=== PATIENT | male | born 1945 | race Caucasian/White ===

== ENCOUNTER → 2016-09-01 | Outpatient (CLI) | payer BC ==
[~2016-09-01] MED LIST: ASPI81TA28 PO; CHOL100010 PO; ERYTTAB PO; FRS/40 PO; GLIP5TAB3 PO; LISI-461 PO; MCRK/20 PO; METO2.5T PO; METO50TA7 PO; MULT-506 PO; NITR0.4D6 UT; OMEG10007 PO; SYN125 PO
[2016-09-01 11:57] LABS: BASO % 0.1 %; BASO ABS # 0.01 K/uL (0-0.2); COMPLETE YES; HEMATOCRIT 44.2 % (42-52); IG% 0.1 %; LYMPH % 29.5 %; LYMPH ABS # 2.07 K/uL (1.2-3.4); MEAN CELL VOLUME 91.7 fL (80-100); MEAN CORPUSCULAR HEMOGLOBIN 32.2 pg (25-34); MEAN CORPUSCULAR HGB CONC 35.1 g/dl (32-36); MONO % 9.5 %; NEUT % 59.8 %; PLATELET COUNT 196 K/uL (130-400); RED BLOOD COUNT 4.82 M/uL (4.7-6.1); WHITE BLOOD COUNT 7.02 K/uL (4.8-10.8)
[2016-09-01 12:03] LABS: INR 1.1 (0.9-1.1); PARTIAL THROMBOPLASTIN RATIO 1.1; PROTHROMBIN TIME (PATIENT) 11.3 SECONDS (9.0-12.0)
[2016-09-01 12:30] LABS: ESTIMATED AVERAGE GLUCOSE 117 mg/dl; HA1C FLAG Normal (Normal)
[2016-09-01 12:31] LABS: ALT/SGPT 25 U/L (12-78); AST/SGOT 14 U/L (15-37); BLOOD UREA NITROGEN 14 mg/dl (7-18); BUN/CREATININE RATIO 12.3 (10-20); CALCIUM 8.5 mg/dl (8.5-10.1); CARBON DIOXIDE 31 mmol/L (21-32); CHLORIDE 101 mmol/L (98-107); GLUCOSE 110 mg/dl (70-99); POTASSIUM 3.7 mmol/L (3.5-5.1); SODIUM 139 mmol/L (136-145)
[2016-09-01 12:36] LABS: ALKALINE PHOSPHATASE 78 U/L (45-117)
== END | disposition home or self-care (01) ==
LOC: C.LAB1850 10:59
PROVIDERS: ATTEND Internal Medicine Cardiovascular Disease
DX: Z01.818 Encounter for other preprocedural examination (principal); I25.10 Atherosclerotic heart disease of native coronary artery without angina pectoris; E11.9 Type 2 diabetes mellitus without complications; Z12.5 Encounter for screening for malignant neoplasm of prostate

== ENCOUNTER 2016-09-16 12:37 | Day surgery (SDC) | payer BC ==
[~2016-09-16] VITALS: Ht 179.1 cm; Wt 97.5 kg
[~2016-09-16 12:37] MED LIST changes: -ERYTTAB PO; +LACTATED RINGER'S 1000ML IV SCH; -METO2.5T PO; +VANCOMYCIN 1GM/270ML NSS 270 ML IV SCH
[2016-09-16] MEDS ORDERED: METO2.5T PO (12:57)
[2016-09-16 12:58] VITALS: BP 130/70; PULSE 94; TEMP 36.6; O2SAT 96; Ht 179.1 cm; Wt 97.5 kg
[2016-09-16] MEDS ORDERED: BACITRACIN 50000 UNIT VIAL ONE (14:14)
[2016-09-16] MEDS ORDERED: LIDOCAINE HCL 1% 20 ML VIAL ONE (14:14)
[2016-09-16] MEDS ORDERED: BACITRACIN OINT 0.9 GM PKT ONE (14:14)
--- NOTE | 2016-09-16 14:51 | History & Physical Bridge Note ---
H&P Re-Evaluation Bridge Note: I have examined the patient, reviewed the History & Physical and in the interval since the performance of the History & Physical I have noted the following changes of clinical significance: No changes noted. I reviewed the indications, procedure, risks and alternatives with him and his and he understands and agrees to proceed. Consent obtained.
--- NOTE | 2016-09-16 14:52 | Procedure Note ---
Pre-Mod Sedation Assessment General Date of Moderate Sedation: Sep 16, 2016. Vital Signs: Vital Signs Past 12 Hours Date Time Temp Pulse Resp B/P Pulse Ox O2 Delivery O2 Flow Rate FiO2 09/16/16 12:58 36.6 94 20 130/70 96 Room Air Review Cardiovascular: regular rate, rhythm Abdomen: normal bowel sounds Lungs: lungs clear Pre-Sedation Airway Assessment Oral Cavity: WNL Smoking Status: Former Smoker Procedure Planning Contraindications-for Mod Sed: None Yes Notes The planned sedation has been discussed with the patient and consent obtained. I have identified the patient, determined the appropriateness of sedation and have assessed the patient immediately prior to the procedure. All medicine(s) and interventions are by my order.
[2016-09-16] MEDS ORDERED: FENTANYL CITRATE INJ 50 MCG/1 ML 2 ML VIAL ONE ×2 (15:00→15:28)
[2016-09-16] MEDS ORDERED: MIDAZOLAM HCL 5 MG/ML 1 ML VIAL ONE ×2 (15:00→15:28)
--- NOTE | 2016-09-16 16:28 | Procedure Note ---
Post-Mod Sedation Assessment General Date of Moderate Sedation Sep 16, 2016. Vital Signs: Vital Signs Past 12 Hours Date Time Temp Pulse Resp B/P Pulse Ox O2 Delivery O2 Flow Rate FiO2 09/16/16 12:58 36.6 94 20 130/70 96 Room Air Review - Discharge Criteria Vital Signs Stable: Yes Alert/Oriented/Conversant: Yes Returned to Baseline Mental St: Yes Nausea Absent/Minimal: Yes Pain/Discomfort/Absent/Minimal: Yes Normal/Baseline Respirations: Yes Active Bleeding?: No Pt Received D/C Instructions: Yes
--- NOTE | 2016-09-16 16:32 | Cardiology Procedure Brief Nt ---
Preliminary Cardiology Note Procedure Date Sep 16, 2016. Pre-Procedure Diagnosis ICD NACHO Post-Procedure Diagnosis same Procedure(s) Performed Biventricular ICD replacement Pier Hand Dr. Barrow Tiltrotor Crew Chief(s) none Estimated Blood Loss 50 cc Preliminary Findings Excellent chronic lead measurements, successful device replacement Recommendations Monitor briefly and discharge Specimens Old ICD, return to patient after signing release form Anesthesia local with sedation Complication(s) None Disposition MTU
[2016-09-16 16:37] VITALS: BP 119/61; PULSE 61; TEMP 36.6; O2SAT 96
[2016-09-16] MEDS ORDERED: KETOROLAC TROMETHAMINE 10 MG TAB PO PRN (16:45)
[2016-09-16] MEDS ORDERED: ACETAMINOPHEN 325 MG TAB PO PRN (16:45)
[2016-09-16 17:00] VITALS: BP 113/67; PULSE 60; TEMP 36.5; O2SAT 96
[2016-09-16 17:30] VITALS: BP 111/62; PULSE 61; TEMP 36.7; O2SAT 96
[2016-09-16] MEDS ORDERED: ERYTTAB PO (17:38)
--- NOTE | 2016-09-16 17:42 | Discharge Instructions ---
Discharge Instructions Admission Reason for Admission: ICD battery depletion Discharge Discharge Diagnosis / Problem: ICD elective replacement time Discharge Goals Goal(s): Improve disease control Activity Recommendations Activity Limitations: resume your previous activity . Instructions / Follow-Up Instructions / Follow-Up ACTIVITY RECOMMENDATIONS: * Do not raise affected arm over head for 2 weeks. SPECIAL CARE INSTRUCTIONS: * If bleeding occurs, apply direct pressure to area for 5 minutes. * Call your doctor if you have severe pain, fever, drainage or bleeding at site. * Keep dressing on and dry. * Keep any scheduled doctor's appointment. * Implant Card - hand held device with website information given. SKIN IRRITATION: * You may experience some redness and/or swelling in the area where radiation was administered. If any skin irritation occurs, please contact your family physician. FOLLOW UP VISIT: Dr. Brarow 09/17/2016, 10:00 AM Current Hospital Diet Patient's current hospital diet: AHA Diet (Heart Healthy) Discharge Diet Recommended Diet: AHA Diet (Heart Healthy), Diabetes Type 2 Diet Procedures Procedures Performed: Biventricular ICD replacement Pending Studies Studies pending at discharge: no Laboratory Results Hemoglobin A1c Test 09/01/16 11:07 Range/Units Estimated Average Glucose 117 mg/dl Hemoglobin A1c 5.7 H 4.5-5.6 % Medical Emergencies . Who to Call and When: Medical Emergencies: If at any time you feel your situation is an emergency, please call 911 immediately. . Non-Emergent Contact Non-Emergency issues call your: Primary Care Provider . . "Provider Documentation" section prepared by Donald Barrow. VTE Core Measure Inpt VTE Proph given/why not?: Treatment not indicated
--- NOTE | 2016-10-16 07:47 | OPERATIVE REPORT ---
DATE OF OPERATION: 09/16/2016 PREOPERATIVE DIAGNOSIS: Implantable cardioverter defibrillator elective replacement indicator. POSTOPERATIVE DIAGNOSIS: Same. PROCEDURE: Biventricular ICD implantation. SURGEON: Donald Barrow MD ANESTHESIA: Local with sedation. HISTORY OF PRESENT ILLNESS: This is a 70-year-old male who has a history of ischemic cardiomyopathy and a biventricular ICD. His ICD was implanted on 09/02/2011. His device has reached NACHO with battery depletion. Therefore, he is brought to the laboratory for device replacement. DESCRIPTION OF PROCEDURE: After obtaining informed consent for the procedure, he was brought to the laboratory on 09/16/2016 being NPO. He was identified in the laboratory, prepped and draped in standard sterile manner for an ICD replacement. The prepectoral region was anesthetized with 1% lidocaine local anesthetic and a 6 cm incision was made through the old implant scar and carried down to the ICD generator. The generator was dissected free of tissue and explanted. The explanted ICD was confirmed to be a Medtronic Protecta XT model [id number], serial number [id number], implanted 09/02/2011. This device will be returned to [employer]. The atrial lead is a Medtronic model 5076, serial number [id number] implanted 09/02/2011. This lead was evaluated in bipolar configuration and a pulse width of 0.5 milliseconds. The pacing threshold was 1.0 volts with a current of 2.1 milliamps, 5-volt lead impedance was 463 ohms and P-waves were sensed at 1.9 millivolts. This is a good threshold and this lead can be used. The right ventricular lead is a Medtronic model 6947, serial number [id number], implanted 09/02/2011. This lead was evaluated in bipolar configuration and a pulse width of 0.5 milliseconds. The ventricular pacing threshold was 0.7 volts with a current of 1.0 milliamp, 5-volt lead impedance was 491 ohms, R-waves were sensed at 30 millivolts. This is a good threshold and this lead can be used. The left ventricular lead is a Medtronic model 4296, serial number [id number], implanted 09/02/2011. This lead was evaluated from LV tip to LV ring at a pulse width of 0.5 milliseconds. The pacing threshold was 0.7 volts with a current of 0.6 milliamps. The 5-volt lead impedance was 951 ohms and R-waves were sensed at 22.1 millivolts. Diaphragmatic pacing was not evaluated. These thresholds are good and this lead can be used. A new ICD (Medtronic Amplia MRI) was attached to the leads and found to be functioning normally. It was placed in the pocket with the leads coiled beneath it and the incision was closed with a running double subcutaneous closure of 3-0 Vicryl followed by running subcuticular skin closure of 4-0 Vicryl. Bacitracin ointment was placed on incision and a pressure dressing applied. The patient tolerated the procedure well, there were no complications, and estimated blood loss was 50 mL. The patient was transferred to the ambulatory unit for monitoring and subsequent discharge. Details of the explanted ICD and the chronic leads are noted above. The new ICD is a Medtronic Amplia MRI FORM BUILDER-D SureScan, model [id number], serial number [id number]. This is an MRI compatible device. JENNIFER
== END 2016-09-16 18:10 | disposition home or self-care (01) ==
LOC: C.ACU 12:37
PROVIDERS: ATTEND Internal Medicine Cardiovascular Disease
DX: Z45.02 Encounter for adjustment and management of automatic implantable cardiac defibrillator (principal); I25.5 Ischemic cardiomyopathy; I25.110 Atherosclerotic heart disease of native coronary artery with unstable angina pectoris; E11.9 Type 2 diabetes mellitus without complications; E04.9 Nontoxic goiter, unspecified; I25.2 Old myocardial infarction; E03.8 Other specified hypothyroidism

== ENCOUNTER → 2016-10-01 | Outpatient (CLI) | payer BC ==
[~2016-10-01] MED LIST changes: -LACTATED RINGER'S 1000ML IV SCH; +METO2.5T PO; -VANCOMYCIN 1GM/270ML NSS 270 ML IV SCH
--- NOTE | 2016-10-01 10:06 | DIAGNOSTIC IMAGING REPORT ---
THYROID ULTRASOUND HISTORY: Mass R22.1 Neck [id number] COMPARISON: None. FINDINGS: Right lobe: Maximum linear dimension 6.0 cm. Heterogeneous somewhat echogenic nodule measuring 3.3 cm x 4.7 cm. Left lobe: Maximum dimension 4.3 cm. No significant nodular pathology. Mild heterogeneity of architecture of the left thyroid lobe. Isthmus: No nodules. IMPRESSION: 1. Mildly heterogeneous thyroid bilaterally. 2. Dominant nodule mid to lower aspect right thyroid measuring 3.35 by potentially 4.7 cm. 3. Fine-needle aspiration of the dominant right thyroid nodule is suggested Electronically signed by: Junito Leon M.D. 10/01/2016 10:05 AM Dictated Date/Time: 10/01/2016 10:02 AM
== END | disposition home or self-care (01) ==
PROVIDERS: ATTEND Family Medicine
DX: R22.1 Localized swelling, mass and lump, neck (principal); E04.1 Nontoxic single thyroid nodule

== ENCOUNTER → 2016-10-10 | Outpatient (CLI) | payer BC ==
--- NOTE | 2016-10-10 11:35 | Discharge Instructions ---
Discharge Instructions Procedure Procedure Date: Oct 10, 2016. Reason for visit: Solitary Thyroid Nodule. Discharge Discharge Date: Oct 10, 2016. Discharge Diagnosis: Right lobe thyroid nodule Instructions Activity Recommendations: No limitations Return to School/Work: no limitations Recommended Home Diet: Resume Previous Diet Provider Instructions: Ultrasound guided fine needle aspiration of a right thyroid nodule is performed with 3 passes utilizing 25-gauge needles. Specimens were reviewed by the pathologist in real-time and deemed adequate for diagnosis. There were no immediate complications. Allergies Coded Allergies: BEE STING (Verified Allergy, Unknown, `, 09/16/16) Penicillins (Verified Allergy, Unknown, `, 09/16/16) Statins (Unverified Allergy, Unknown, myalgia, 09/16/16) Levofloxacin (Verified Adverse Reaction, Intermediate, nightmares, 09/16/16 ) pt refuses to take [place] Recommendations: Call your doctor if: * Temperature above 101 degrees * Pain not relieved by pain medicine ordered * There is increased drainage or redness from any incision * You have any unanswered questions or concerns. Your Doctors Instructions noted above were prepared by provider Paul Duncan. Patient Signature Section: Patient Instructions Signature Page Lavell Das Patient (or Guardian) Signature/Date: I have read and understand the instructions given to me by my caregivers. Caregiver/RN/Doctor Signature/Date: The above-named patient and/or guardian has received patient instructions on this date. + Original Patient Signature Page (only) stays with chart. Please make copy for patient.
--- NOTE | 2016-10-10 11:51 | DIAGNOSTIC IMAGING REPORT ---
ULTRASOUND-GUIDED FINE-NEEDLE ASPIRATION THYROID CLINICAL HISTORY: Right thyroid nodule. COMPARISON STUDY: Thyroid ultrasound dated 10/01/16. PROCEDURE: The risks, benefits, and alternatives to the procedure were discussed with the patient. Written informed consent was obtained. The patient was placed supine in ultrasound, and the 4.7 x 3.2 x 3.3 cm dominant solid nodule in the right lobe of the thyroid was localized by ultrasound and selected for fine needle aspiration. The right neck was prepped and draped in the usual sterile fashion. The nodule was aspirated under ultrasound guidance with 3 passes utilizing 25-gauge needles. Specimens were reviewed by the pathologist in real-time and deemed adequate for diagnosis. The patient tolerated the procedure well and left the department in satisfactory condition. IMPRESSION: Completed fine-needle aspiration of a dominant right thyroid nodule as above. Electronically signed by: Paul Duncan M.D. 10/10/2016 11:49 AM Dictated Date/Time: 10/10/2016 11:49 AM
== END | disposition home or self-care (01) ==
LOC: C.ULTR 10:27
PROVIDERS: ATTEND Family Medicine
DX: E04.1 Nontoxic single thyroid nodule (principal); R22.1 Localized swelling, mass and lump, neck

== ENCOUNTER → 2017-03-09 | Outpatient (CLI) | payer BC ==
[2017-03-09 10:08] LABS: CHOLESTEROL/HDL RATIO 3.6
== END | disposition home or self-care (01) ==
LOC: C.LAB1850 08:00
PROVIDERS: ATTEND Internal Medicine Cardiovascular Disease
DX: E78.5 Hyperlipidemia, unspecified (principal)

== ENCOUNTER → 2017-03-18 | Outpatient (CLI) | payer BC | END | disposition home or self-care (01) | LOC: C.LAB1850 12:08 | PROVIDERS: ATTEND Internal Medicine Cardiovascular Disease | DX: E03.8 Other specified hypothyroidism (principal) ==

== ENCOUNTER → 2017-04-22 | Outpatient (CLI) | payer BC | END | disposition home or self-care (01) | LOC: C.RDSM 15:27 | PROVIDERS: ATTEND Orthopaedic Surgery Sports Medicine | DX: M79.673 Pain in unspecified foot (principal) ==

== ENCOUNTER → 2017-04-24 | Outpatient (CLI) | payer BC ==
[2017-04-24 12:40] LABS: BLOOD UREA NITROGEN 27 mg/dl (7-18); BUN/CREATININE RATIO 18.2 (10-20); CALCIUM 8.9 mg/dl (8.5-10.1); CARBON DIOXIDE 30 mmol/L (21-32); CHLORIDE 103 mmol/L (98-107); GLUCOSE 99 mg/dl (70-99); SODIUM 138 mmol/L (136-145)
[2017-04-24 12:50] LABS: ESTIMATED AVERAGE GLUCOSE 114 mg/dl; HA1C FLAG Normal (Normal)
[2017-04-24 12:57] LABS: RATIO 13.4 mcg/mg (0-30.0)
== END | disposition home or self-care (01) ==
LOC: C.LABPBG 09:14
PROVIDERS: ATTEND Family Medicine
DX: E11.9 Type 2 diabetes mellitus without complications (principal)

== ENCOUNTER → 2017-05-06 | Outpatient (CLI) | payer BC ==
[2017-05-06 12:46] LABS: BLOOD UREA NITROGEN 26 mg/dl (7-18); CALCIUM 9.4 mg/dl (8.5-10.1); CARBON DIOXIDE 29 mmol/L (21-32); CHLORIDE 99 mmol/L (98-107); GLUCOSE 137 mg/dl (70-99); POTASSIUM 3.9 mmol/L (3.5-5.1); SODIUM 134 mmol/L (136-145)
== END | disposition home or self-care (01) ==
LOC: C.LABPBG 08:28
PROVIDERS: ATTEND Family Medicine
DX: R79.89 Other specified abnormal findings of blood chemistry (principal)

== ENCOUNTER → 2017-06-17 | Outpatient (CLI) | payer BC | END | disposition home or self-care (01) | LOC: C.RDSM 13:22 | PROVIDERS: ATTEND Orthopaedic Surgery Sports Medicine | DX: M79.671 Pain in right foot (principal) ==

== ENCOUNTER → 2017-06-24 | Outpatient (CLI) | payer BC | END | disposition home or self-care (01) | LOC: C.LAB1850 15:38 | PROVIDERS: ATTEND Family Medicine | DX: M10.471 Other secondary gout, right ankle and foot (principal) ==

== ENCOUNTER → 2017-07-22 | Outpatient (CLI) | payer BC | END | disposition home or self-care (01) | LOC: C.RDSM 14:30 | PROVIDERS: ATTEND Orthopaedic Surgery Sports Medicine | DX: Z09 Encounter for follow-up examination after completed treatment for conditions other than malignant neoplasm (principal) ==

== ENCOUNTER → 2017-07-31 | Outpatient (CLI) | payer BC ==
[2017-07-31 17:14] LABS: BASO % 0.2 %; BASO ABS # 0.02 K/uL (0-0.2); COMPLETE YES; EOS % 0.9 %; HEMATOCRIT 39.2 % (42-52); IG% 0.2 %; LYMPH % 12.7 %; LYMPH ABS # 1.47 K/uL (1.2-3.4); MEAN CELL VOLUME 96.8 fL (80-100); MEAN CORPUSCULAR HEMOGLOBIN 33.1 pg (25-34); MEAN CORPUSCULAR HGB CONC 34.2 g/dl (32-36); MEAN PLATELET VOLUME 10.9 fL (7.4-10.4); MONO % 7.3 %; NEUT % 78.7 %; PLATELET COUNT 258 K/uL (130-400); RED BLOOD COUNT 4.05 M/uL (4.7-6.1); WHITE BLOOD COUNT 11.53 K/uL (4.8-10.8)
[2017-07-31 17:23] LABS: BLOOD UREA NITROGEN 21 mg/dl (7-18); BUN/CREATININE RATIO 16.2 (10-20); CALCIUM 8.6 mg/dl (8.5-10.1); CARBON DIOXIDE 28 mmol/L (21-32); CHLORIDE 100 mmol/L (98-107); CREATININE 1.27 mg/dl (0.60-1.40); GLUCOSE 87 mg/dl (70-99); POTASSIUM 3.8 mmol/L (3.5-5.1); SODIUM 133 mmol/L (136-145)
== END | disposition home or self-care (01) ==
LOC: C.LABPBG 13:32
PROVIDERS: ATTEND Family Medicine
DX: R53.83 Other fatigue (principal)

== ENCOUNTER → 2017-08-10 | Outpatient (CLI) | payer BC ==
[~2017-08-10] MED LIST changes: +ASPI-435 PO; +CARV6.252 PO; +CHOL1TAB42 PO; +CRG125 PO
--- NOTE | 2017-08-10 11:06 | DIAGNOSTIC IMAGING REPORT ---
SOFT TISS HEAD/NECK-THYROID HISTORY: Nodule R22.1 Lump in [id number] COMPARISON: None. FINDINGS: Palpable nodule posterior to the right hear is a slightly echogenic well-circumscribed nodule measuring 1.4 x 1.0 cm. This appearance is nonspecific. Fine-needle aspiration is suggested. IMPRESSION: Palpable nodule posterior to the right ear is a well-circumscribed nodule measuring 1.4 x 1.0 cm. This is nonspecific. If it persists, fine-needle aspiration would be suggested. As it is palpable, this could be performed in pathology. The above report was generated using voice recognition software. It may contain grammatical, syntax or spelling errors. Electronically signed by: Junito Leon M.D. 08/10/2017 11:05 AM Dictated Date/Time: 08/10/2017 11:02 AM
== END | disposition home or self-care (01) ==
LOC: C.ULTR 09:37
PROVIDERS: ATTEND Family Medicine
DX: R22.1 Localized swelling, mass and lump, neck (principal)

== ENCOUNTER 2017-08-11 06:28 | Observation (INO) | payer BC ==
[~2017-08-11] VITALS: Ht 177.8 cm; Wt 96.4 kg
[2017-08-11] VITALS (7 sets, daily range): BP systolic 94–114; BP diastolic 53–71; PULSE 67–83; TEMP 36.6–36.7; O2SAT 91–96; Ht 177.8 cm; Wt 96.4 kg
[~2017-08-11 06:28] MED LIST changes: -ASPI-435 PO; -CARV6.252 PO; -CHOL1TAB42 PO; -CRG125 PO
[2017-08-11] MEDS ORDERED: FUROSEMIDE 40 MG/4 ML VIAL IV STA (06:38)
--- NOTE | 2017-08-11 06:41 | EMERGENCY ROOM VISIT NOTE ---
History Report prepared by Ninoska: Ghazal Burden Under the Supervision of: Dr. Aliya Marinelli M.D. First contact with patient: 06:34 Chief Complaint: RESPIRATORY DISTRESS Stated Complaint: RESP DISTRESS Nursing Triage Summary: shortness of breath, productive cough with pink frothy sputum History of Present Illness The patient is a 71 year old male who presents to the Emergency Room with complaints of persistent shortness of breath that began this morning. Per nursing staff, the patient arrives via ALS from home on c-pap. The patient states that he went to bed last night feeling fine, but notes that he woke this morning with shortness of breath. He additionally reports a productive cough, but denies any chest pain. The patient states that he has a history of congestive heart failure, and states that he is on diuretics. Source of History: patient, nursing staff Onset: this morning Position: other (global) Quality: other (shortness of breath) Timing: other (persistent) Associated Symptoms: + cough, No chest pain Review of Systems See HPI for pertinent positives & negatives. A total of 10 systems reviewed and were otherwise negative. Past Medical & Surgical Medical Problems: (1) Chronic congestive heart failure (2) Ischemic cardiomyopathy (3) Left bundle branch block (4) Pneumonia Family History No pertinent family history Social History Smoking Status: Never Smoker Marital Status: Housing Status: lives with family Occupation Status: retired Current/Historical Medications Scheduled Aspirin (Aspirin 81), 81 MG PO DAILY Carvedilol (Carvedilol), 12.5 MG PO BIDM Cholecalciferol (Vitamin D), 5,000 UNIT PO DAILY Fish Oil (Isle-3), 1 CAP PO DAILY Furosemide (Lasix), 40 MG PO DAILY Glipizide (Glucotrol), 5 MG PO DAILY Lisinopril (Zestril), 10 MG PO DAILY Metoprolol Succ (Toprol Xl) (Toprol-Xl), 50 MG PO DAILY Potassium Chloride (Potassium Chloride ER), 20 MEQ PO DAILY Scheduled PRN Metolazone (Zaroxolyn), 2.5 MG PO DAILY PRN for fluid retention Nitroglycerin (Nitroglycerin), 1 SPRAY UT DIRECTED PRN for Chest Pain Allergies Coded Allergies: BEE STING (Verified Allergy, Unknown, `, 09/16/16) Penicillins (Verified Allergy, Unknown, `, 09/16/16) Statins (Unverified Allergy, Unknown, myalgia, 09/16/16) Levofloxacin (Verified Adverse Reaction, Intermediate, nightmares, 09/16/16 ) pt refuses to take Physical Exam Vital Signs Date Time Temp Pulse Resp B/P (MAP) Pulse Ox O2 Delivery O2 Flow Rate FiO2 08/11/17 09:00 79 22 127/76 94 Nasal Cannula 4.0 08/11/17 08:25 94 Nasal Cannula 4.0 08/11/17 07:58 36.7 78 20 166/82 96 Nasal Cannula 4.0 60 08/11/17 07:11 94 Nasal Cannula 4.0 08/11/17 07:10 95 Nasal Cannula 4.0 08/11/17 07:07 36.7 87 19 137/73 99 Nasal Cannula 4.0 08/11/17 07:01 85 28 120/90 99 BiPAP 08/11/17 06:50 83 28 102/75 100 BiPAP 60 08/11/17 06:46 80 08/11/17 06:40 83 60 08/11/17 06:28 36.7 85 22 166/95 96 CPAP 10.0 08/11/17 06:28 96 CPAP 10.0 Physical Exam Vital signs reviewed. General: Well-appearing male, in no significant distress. HEENT: No scleral icterus, PERRLA, neck supple. Atraumatic. Cardiovascular: Regular rate and rhythm, no extra sounds. Pulmonary: Rhonchi through the lung field bilaterally, no respiratory distress on bi-PAP. Abdomen: Soft, nontender, nondistended, positive bowel sounds. Musculoskeletal: Atraumatic, no peripheral edema. Neurologic: Patient awake alert and oriented x 3, full strength in all 4 extremities. Cranial nerves 2 through 12 grossly intact. Skin: Slightly cyanotic to the tips of the pinna, the lips and the distal fingers, but currently oxygenating well. Warm, dry, no rash Medical Decision & Procedures ER Provider Diagnostic Interpretation: X-ray results as stated below per interpretation by me and the radiologist: CHEST ONE VIEW PORTABLE HISTORY: 71 years-old Male Chest Pain acute atypical chest pain COMPARISON: Chest radiograph 08/26/2016, thyroid ultrasound 10/01/2016, CTA of the chest 10/29/2015 TECHNIQUE: Portable AP view of the chest FINDINGS: Persistent leftward deviation of the upper thoracic trachea suggests thyroid goiter. Cardiac silhouette is again moderately enlarged. Right pectoral pacer/AICD is unchanged. No pneumothorax or large pleural effusion. Pulmonary vascular congestion is noted with bilateral perihilar and bibasilar predominant mixed interstitial and alveolar opacities, right than left. Bones of the chest appear grossly intact. IMPRESSION: 1. Cardiomegaly with pulmonary edema. 2. Patchy asymmetric right perihilar and right basilar alveolar opacities likely reflect alveolar pulmonary edema with atelectasis and/or superimposed pneumonia also in the differential. The above report was generated using voice recognition software. It may contain grammatical, syntax or spelling errors. Electronically signed by: Marshall Ruffin M.D. 08/11/2017 6:55 AM Dictated Date/Time: 08/11/2017 6:51 AM Laboratory Results Test 08/11/17 06:41 08/11/17 06:47 08/11/17 06:50 08/11/17 06:54 Immature Granulocyte % (Auto) 0.5 % White Blood Count 11.17 K/uL (4.8-10.8) Red Blood Count 4.46 M/uL (4.7-6.1) Hemoglobin 14.6 g/dL (14.0-18.0) Hematocrit 43.0 % (42-52) Mean Corpuscular Volume 96.4 fL (80-100) Mean Corpuscular Hemoglobin 32.7 pg (25-34) Mean Corpuscular Hemoglobin Concent 34.0 g/dl (32-36) Platelet Count 339 K/uL (130-400) Mean Platelet Volume 10.6 fL (7.4-10.4) Neutrophils (%) (Auto) 75.6 % Lymphocytes (%) (Auto) 16.4 % Monocytes (%) (Auto) 5.9 % Eosinophils (%) (Auto) 1.2 % Basophils (%) (Auto) 0.4 % Neutrophils # (Auto) 8.45 K/uL (1.4-6.5) Lymphocytes # (Auto) 1.83 K/uL (1.2-3.4) Monocytes # (Auto) 0.66 K/uL (0.11-0.59) Eosinophils # (Auto) 0.13 K/uL (0-0.5) Basophils # (Auto) 0.04 K/uL (0-0.2) Immature Granulocyte # (Auto) 0.06 K/uL (0.00-0.02) Prothrombin Time 12.3 SECONDS (9.0-12.0) Prothromb Time International Ratio 1.2 (0.9-1.1) Activated Partial Thromboplast Time 26.0 SECONDS (21.0-31.0) Partial Thromboplastin Ratio 1.0 Magnesium Level 2.3 mg/dl (1.8-2.4) Total Creatine Kinase 60 U/L (39-308) Pro-B-Type Natriuretic Peptide 2950 pg/ml (0-900) Bedside Lactic Acid Venous 2.00 mmol/L (0.90-1.70) Bedside Hemoglobin 15.0 g/dl (14.0-18.0) Bedside Hematocrit 44 % (42-52) Bedside Sodium 138 mEq/L (135-144) Bedside Potassium 4.5 mEq/L (3.3-5.0) Bedside Chloride 105 mEq/L (101-112) Bedside Total CO2 25 mEq/l (24-31) Bedside Blood Urea Nitrogen 25 mg/dl (7-18) Bedside Creatinine 1.2 mg/dl (0.6-1.3) Bedside Glucose (other) 209 mg/dl (70-99) Bedside Ionized Calcium (Heidy) 1.10 mmol/l (1.12-1.32) Blood Gas Sample Site R Radial Bedside Blood Gas pH (LAB) 7.34 (7.35-7.45) Bedside Blood Gas pCO2 (LAB) 40 mmHg (35-46) Bedside Blood Gas pO2 (LAB) 133 mmHg (80-95) Bedside Blood Gas HCO3 (LAB) 22 meq/L (19-24) Bedside Blood Gas Total CO2 23 mEq/l (24-31) Bedside Blood Gas Base Excess (LAB) -4.0 meq/L (-9-1.8) Bedside Blood Gas O2 Saturation 99.0 % (90-95) Augie Test Pass Oxygen Delivery Device BIPAP Bedside Oxygen Rate (breaths/min) 12 Bedside FiO2 60 % Blood Gas IPAP 12 Laboratory results per my review. Medications Administered Medications (Trade) Dose Ordered Sig/Joelle Route Start Time Stop Time Status Last Admin Dose Admin Furosemide (Lasix Inj) 40 mg NOW STAT IV 08/11/17 06:38 08/11/17 06:41 DC 08/11/17 06:57 40 MG Nitroglycerin (Nitroglycerin 2% Oint) 0.5 inch NOW ONCE EXT 08/11/17 06:45 08/11/17 06:46 DC 08/11/17 06:59 0.5 INCH Aspirin (Ecotrin Tab) 81 mg DAILY PO 08/11/17 09:00 09/10/17 08:59 08/11/17 12:05 81 MG Fish Oil (Isle-3 (Purified Fish Oil) Cap) 1 gm DAILY PO 08/11/17 09:00 09/10/17 08:59 08/11/17 12:07 1 GM Glipizide (Glucotrol Tab) 5 mg DAILY PO 08/11/17 09:00 09/10/17 08:59 08/11/17 12:06 5 MG Lisinopril (Zestril Tab) 10 mg DAILY PO 08/11/17 09:00 09/10/17 08:59 08/11/17 12:07 10 MG Potassium Chloride (Klor-Con Tab) 20 meq DAILY PO 08/11/17 09:00 09/10/17 08:59 08/11/17 12:07 20 MEQ ECG Indication: SOB/dyspnea Rate (beats per minute): 89 Rhythm: other (ventricularly paced) Findings: no acute ischemic change, other (biventricular pacemaker, poor quality baseline for interpretation) ED Course 0635: Past medical records reviewed. The patient was evaluated in room B1. A complete history and physical examination was performed. 0638: Ordered Lasix Inj 40 mg IV. 0645: Ordered Nitroglycerin 0.5 inch ext. 0807: I reevaluated the patient and he is resting comfortably. I discussed the exam findings with him and I discussed the treatment plan. He verbalized complete understanding and agreement. He is going to be evaluated for further treatment. 0818: I discussed the patients case with Dr. Mendoza [facility] [place]. He is going to evaluate the patient for further treatment. Medical Decision Differential diagnosis: Etiologies such as infections, reactive airway disease, pneumonia, pneumothorax , COPD, CHF, cardiac ischemia, pulmonary embolism, musculoskeletal, gastrointestinal, as well as others were entertained. This patient was evaluated and appeared to be in mild respiratory discomfort on my evaluation. Respiratory therapy was placing BiPAP. Chest x-ray was performed and reveals pulmonary edema. IV Lasix 40 mg was given. Patient's laboratory work reveals a negative troponin. BNP is slightly elevated. EKG reveals a ventricularly paced rhythm, no acute ischemic changes appreciated. The patient did improve from a respiratory standpoint and was weaned off of the BiPAP. He had urinated greater than 500 mL in the emergency department. The patient was feeling improved however will be evaluated by the hospitalist service for further management. He and his are aware of the plan and agree. Medication Reconcilliation Current Medication List: was personally reviewed by me Blood Pressure Screening Patient's blood pressure: Elevated blood pressure Referred to the hospitalist. Consults Time Called: 809 Consulting Physician: RACHID Lopez Returned Call: 08 I discussed the patients case with RACHID Lopez. He is going to evaluate the patient for further treatment. Impression Primary Impression: CHF (congestive heart failure) Scribe Attestation The scribe's documentation has been prepared under my direction and personally reviewed by me in its entirety. I confirm that the note above accurately reflects all work, treatment, procedures, and medical decision making performed by me. Departure Information Dispostion Being Evaluated By Hospitalist Referrals Leonor Day DO (PCP)
[2017-08-11] MEDS ORDERED: NITROGLYCERIN OINT 2% 1GM PACKET EXT ONE (06:45)
[2017-08-11] MEDS ORDERED: ASPI-435 PO (06:46)
[2017-08-11] MEDS ORDERED: CHOL1TAB42 PO (06:47)
[2017-08-11] MEDS ORDERED: CRG125 PO (06:48)
--- NOTE | 2017-08-11 06:56 | DIAGNOSTIC IMAGING REPORT ---
CHEST ONE VIEW PORTABLE HISTORY: 71 years-old Male Chest Pain acute atypical chest pain COMPARISON: Chest radiograph 08/26/2016, thyroid ultrasound 10/01/2016, CTA of the chest 10/29/2015 TECHNIQUE: Portable AP view of the chest FINDINGS: Persistent leftward deviation of the upper thoracic trachea suggests thyroid goiter. Cardiac silhouette is again moderately enlarged. Right pectoral pacer/AICD is unchanged. No pneumothorax or large pleural effusion. Pulmonary vascular congestion is noted with bilateral perihilar and bibasilar predominant mixed interstitial and alveolar opacities, right than left. Bones of the chest appear grossly intact. IMPRESSION: 1. Cardiomegaly with pulmonary edema. 2. Patchy asymmetric right perihilar and right basilar alveolar opacities likely reflect alveolar pulmonary edema with atelectasis and/or superimposed pneumonia also in the differential. The above report was generated using voice recognition software. It may contain grammatical, syntax or spelling errors. Electronically signed by: Marshall Ruffin M.D. 08/11/2017 6:55 AM Dictated Date/Time: 08/11/2017 6:51 AM
[2017-08-11 07:00] LABS: BASO % 0.4 %; BASO ABS # 0.04 K/uL (0-0.2); COMPLETE YES; EOS % 1.2 %; IG% 0.5 %; LYMPH % 16.4 %; LYMPH ABS # 1.83 K/uL (1.2-3.4); MEAN CELL VOLUME 96.4 fL (80-100); MEAN CORPUSCULAR HEMOGLOBIN 32.7 pg (25-34); MEAN PLATELET VOLUME 10.6 fL (7.4-10.4); MONO % 5.9 %; NEUT % 75.6 %; PLATELET COUNT 339 K/uL (130-400); RED BLOOD COUNT 4.46 M/uL (4.7-6.1); WHITE BLOOD COUNT 11.17 K/uL (4.8-10.8)
[2017-08-11 07:03] LABS: ISTAT CREATININE 1.2 mg/dl (0.6-1.3); ISTAT IONIZED CALCIUM 1.1 mmol/l (1.12-1.32)
[2017-08-11 07:09] LABS: INR 1.2 (0.9-1.1); PROTHROMBIN TIME (PATIENT) 12.3 SECONDS (9.0-12.0)
[2017-08-11 07:11] LABS: IPAP 12; ISTAT ALLEN TEST Pass; ISTAT ARTERIAL BLOOD GAS HCO3 22 meq/L (19-24); ISTAT ARTERIAL BLOOD GAS PCO2 40 mmHg (35-46); ISTAT ARTERIAL BLOOD GAS PO2 133 mmHg (80-95); ISTAT ARTERIAL BLOOD GAS pH 7.34 (7.35-7.45); ISTAT CARBON DIOXIDE 23 mEq/l (24-31); ISTAT DELIVERY SYSTEM BIPAP; ISTAT FIO2 60 %; ISTAT RATE 12; ISTAT SITE R Radial
[2017-08-11 07:17] LABS: BUN/CREATININE RATIO 16.6 (10-20); CALCIUM 8.5 mg/dl (8.5-10.1); CREATININE 1.23 mg/dl (0.60-1.40); MAGNESIUM 2.3 mg/dl (1.8-2.4); POTASSIUM 4.2 mmol/L (3.5-5.1)
[2017-08-11 07:22] LABS: CKMB/CK RATIO 3.7 (0-3.0)
[2017-08-11] MEDS ORDERED: NITROGLYCERIN 0.4 MG SL PER TAB CHARGE SL PRN (09:00)
[2017-08-11] MEDS ORDERED: ALUMINUM/MAGNESIUM/SIMETH (MAALOX MAX) 30 ML UDC PO PRN (09:00)
[2017-08-11] MEDS ORDERED: POLYETHYLENE (MIRALAX) 17 GM PACK PO PRN (09:00)
[2017-08-11] MEDS ORDERED: ACETAMINOPHEN 325 MG TAB PO PRN (09:00)
[2017-08-11] MEDS ORDERED: ONDANSETRON INJ 2 MG/ML 2 ML VIAL IV PRN (09:00)
[2017-08-11] MEDS ORDERED: MAGNESIUM HYDROXIDE SUSP 30 ML UDC PO PRN (09:00)
[2017-08-11] MEDS ORDERED: MoRPHine SULFATE 2 MG/ML CARP IV PRN (09:00)
--- NOTE | 2017-08-11 09:21 | History and Physical ---
History & Physical Date & Time of Service: Aug 11, 2017 at 09:08 Chief Complaint: Resp Distress Primary Care Physician: Rangel Pizarro M.D. History of Present Illness Source: patient, family (), clinic records, hospital records Patient is a pleasant 71 y/o male, with PMHx of CAD s/p AL, ischemic cardiomyopathy, s/p biventricular ICD, chronic systolic CHF w/ EF of 15-20%, HTN , and T2DM, who presented to the ED because of shortness of breath. Patient woke up around 0500 to go to the bathroom, when he became acutely short of breath. He denies any other symptoms. He completed a 10 day course of Doxycycline on 08/10 for bronchitis. He notes his productive cough has resolved. He follows w/ Dr. Pizarro- dry weight is 215 w/ trigger weight of 218 for which he is to double his Lasix dose (80 mg). He notes his weight at home was 214 today, so he did not take an extra Lasix dose- weight here is 225. He received IV Lasix 40 mg in ED with improvement in SOB. He follows a low-sodium diet- denies noncompliance. Patient denies any fever, chills, sweats, lightheadedness, dizziness, vision changes, CP, palpitations, edema, wheezing, cough, abdominal pain, nausea, vomiting, diarrhea, urinary symptoms, melena, numbness/tingling, weakness, muscle/joint pain, anxiety/depression, active bleeding, or new skin discoloration/changes. Past Medical/Surgical History Past Medical History: CAD s/p AL ischemic cardiomyopathy s/p biventricular ICD chronic systolic CHF w/ EF of 15-20% HTN T2DM Family History Heart disease HTN Hypercholesterolemia Social History Smoking Status: Never Smoker Marital Status: Housing status: lives with family Occupational Status: retired Immunizations History of Influenza Vaccine: No Influenza Vaccine Date: Jun 01, 2009 History of Tetanus Vaccine?: Unknown History of Pneumococcal: Yes Pneumococcal Date: Jun 16, 2011 History of Hepatitis B Vaccine: Unknown Multi-Drug Resistant Organisms History of MDRO: No Allergies Coded Allergies: BEE STING (Verified Allergy, Unknown, `, 09/16/16) Penicillins (Verified Allergy, Unknown, `, 09/16/16) Statins (Unverified Allergy, Unknown, myalgia, 09/16/16) Levofloxacin (Verified Adverse Reaction, Intermediate, nightmares, 09/16/16 ) pt refuses to take Home Medications Scheduled Aspirin (Aspirin 81), 81 MG PO DAILY Carvedilol (Carvedilol), 12.5 MG PO BIDM Cholecalciferol (Vitamin D), 5,000 UNIT PO DAILY Fish Oil (Acme-3), 1 CAP PO DAILY Furosemide (Lasix), 40 MG PO DAILY Glipizide (Glucotrol), 5 MG PO DAILY Lisinopril (Zestril), 10 MG PO DAILY Metoprolol Succ (Toprol Xl) (Toprol-Xl), 50 MG PO DAILY Potassium Chloride (Potassium Chloride ER), 20 MEQ PO DAILY Scheduled PRN Metolazone (Zaroxolyn), 2.5 MG PO DAILY PRN for fluid retention Nitroglycerin (Nitroglycerin), 1 SPRAY UT DIRECTED PRN for Chest Pain Physical Exam Vital Signs Date Time Temp Pulse Resp B/P (MAP) Pulse Ox O2 Delivery O2 Flow Rate FiO2 08/11/17 09:00 79 22 127/76 94 Nasal Cannula 4.0 08/11/17 07:58 36.7 78 20 166/82 96 Nasal Cannula 4.0 60 08/11/17 07:11 94 Nasal Cannula 4.0 08/11/17 07:10 95 Nasal Cannula 4.0 08/11/17 07:07 36.7 87 19 137/73 99 Nasal Cannula 4.0 08/11/17 07:01 85 28 120/90 99 BiPAP 08/11/17 06:50 83 28 102/75 100 BiPAP 60 08/11/17 06:46 80 08/11/17 06:40 83 60 08/11/17 06:28 36.7 85 22 166/95 96 CPAP 10.0 08/11/17 06:28 96 CPAP 10.0 General Appearance: no apparent distress, + pertinent finding (O2 NC ) Head: normocephalic, atraumatic Eyes: normal inspection, PERRL ENT: hearing grossly normal Neck: supple, no JVD Respiratory/Chest: no respiratory distress, no accessory muscle use, + crackles (faint crackles bilateral lung bases ) Cardiovascular: regular rate, rhythm Abdomen/GI: normal bowel sounds, non tender, soft Back: normal inspection Extremities/Musculoskelatal: no calf tenderness, no pedal edema Neurologic/Psych: alert, normal mood/affect, oriented x 3 Skin: normal color, warm/dry, no rash Diagnostics Laboratory Results Results Past 24 Hours Test 08/11/17 06:41 08/11/17 06:47 08/11/17 06:50 08/11/17 06:54 Range/Units White Blood Count 11.17 4.8-10.8 K/uL Red Blood Count 4.46 4.7-6.1 M/uL Hemoglobin 14.6 14.0-18.0 g/dL Hematocrit 43.0 42-52 % Mean Corpuscular Volume 96.4 80-100 fL Mean Corpuscular Hemoglobin 32.7 25-34 pg Mean Corpuscular Hemoglobin Concent 34.0 32-36 g/dl Platelet Count 339 130-400 K/uL Mean Platelet Volume 10.6 7.4-10.4 fL Neutrophils (%) (Auto) 75.6 % Lymphocytes (%) (Auto) 16.4 % Monocytes (%) (Auto) 5.9 % Eosinophils (%) (Auto) 1.2 % Basophils (%) (Auto) 0.4 % Neutrophils # (Auto) 8.45 1.4-6.5 K/uL Lymphocytes # (Auto) 1.83 1.2-3.4 K/uL Monocytes # (Auto) 0.66 0.11-0.59 K/uL Eosinophils # (Auto) 0.13 0-0.5 K/uL Basophils # (Auto) 0.04 0-0.2 K/uL RDW Standard Deviation 48.9 36.4-46.3 fL RDW Coefficient of Variation 13.9 11.5-14.5 % Immature Granulocyte % (Auto) 0.5 % Immature Granulocyte # (Auto) 0.06 0.00-0.02 K/uL Prothrombin Time 12.3 9.0-12.0 SECONDS Prothromb Time International Ratio 1.2 0.9-1.1 Activated Partial Thromboplast Time 26.0 21.0-31.0 SECONDS Partial Thromboplastin Ratio 1.0 Sodium Level 135 136-145 mmol/L Potassium Level 4.2 3.5-5.1 mmol/L Chloride Level 103 98-107 mmol/L Carbon Dioxide Level 23 21-32 mmol/L Anion Gap 9.0 14.0 16-25 mmol/L Blood Urea Nitrogen 20 7-18 mg/dl Creatinine 1.23 0.60-1.40 mg/dl Est Creatinine Clear Calc Drug Dose 64.1 ml/min Estimated GFR () 67.1 Estimated GFR (Non- 57.9 BUN/Creatinine Ratio 16.6 10-20 Random Glucose 209 70-99 mg/dl Calcium Level 8.5 8.5-10.1 mg/dl Magnesium Level 2.3 1.8-2.4 mg/dl Total Creatine Kinase 60 39-308 U/L Creatine Kinase MB 2.2 0.5-3.6 ng/ml Creatine Kinase MB Ratio 3.7 0-3.0 Troponin I 0.037 0-0.045 ng/ml Pro-B-Type Natriuretic Peptide 2950 0-900 pg/ml Bedside Lactic Acid Venous 2.00 0.90-1.70 mmol/L Bedside Hemoglobin 15.0 14.0-18.0 g/dl Bedside Hematocrit 44 42-52 % Bedside Sodium 138 135-144 mEq/L Bedside Potassium 4.5 3.3-5.0 mEq/L Bedside Chloride 105 101-112 mEq/L Bedside Total CO2 25 24-31 mEq/l Bedside Blood Urea Nitrogen 25 7-18 mg/dl Bedside Creatinine 1.2 0.6-1.3 mg/dl Bedside Glucose (other) 209 70-99 mg/dl Bedside Ionized Calcium (Heidy) 1.10 1.12-1.32 mmol/l Blood Gas Sample Site R Radial Bedside Blood Gas pH (LAB) 7.34 7.35-7.45 Bedside Blood Gas pCO2 (LAB) 40 35-46 mmHg Bedside Blood Gas pO2 (LAB) 133 80-95 mmHg Bedside Blood Gas HCO3 (LAB) 22 19-24 meq/L Bedside Blood Gas Total CO2 23 24-31 mEq/l Bedside Blood Gas Base Excess (LAB) -4.0 -9-1.8 meq/L Bedside Blood Gas O2 Saturation 99.0 90-95 % Augie Test Pass Oxygen Delivery Device BIPAP Bedside Oxygen Rate (breaths/min) 12 Bedside FiO2 60 % Blood Gas IPAP 12 Diagnostic Radiology CHEST ONE VIEW PORTABLE HISTORY: 71 years-old Male Chest Pain acute atypical chest pain COMPARISON: Chest radiograph 08/26/2016, thyroid ultrasound 10/01/2016, CTA of the chest 10/29/2015 TECHNIQUE: Portable AP view of the chest FINDINGS: Persistent leftward deviation of the upper thoracic trachea suggests thyroid goiter. Cardiac silhouette is again moderately enlarged. Right pectoral pacer/AICD is unchanged. No pneumothorax or large pleural effusion. Pulmonary vascular congestion is noted with bilateral perihilar and bibasilar predominant mixed interstitial and alveolar opacities, right than left. Bones of the chest appear grossly intact. IMPRESSION: 1. Cardiomegaly with pulmonary edema. 2. Patchy asymmetric right perihilar and right basilar alveolar opacities likely reflect alveolar pulmonary edema with atelectasis and/or superimposed pneumonia also in the differential. The above report was generated using voice recognition software. It may contain grammatical, syntax or spelling errors. Electronically signed by: Marshall Ruffin M.D. 08/11/2017 6:55 AM Dictated Date/Time: 08/11/2017 6:51 AM The status of this report is Signed. Draft = Not yet reviewed or approved by Radiologist. Signed = Reviewed and approved by Radiologist. EKG REJI BANSAL ID:[id number] 11-AUG-2017 06:32:47 [facility] Poor data quality, interpretation may be adversely affected Ventricular-paced rhythm Biventricular pacemaker detected Abnormal ECG When compared with ECG of 16-SEP-2016 17:09, Vent. rate has increased BY 28 BPM 25mm/s 10mm/mV 150Hz 8.0 SP2 12SL 241 HD CARLOS: 12 Referred by: Referred Self Unconfirmed Vent. rate 89 BPM NE interval * ms QRS duration 156 ms QT/QTc 440/535 ms P-R-T axes * 184 26 1945 (71 yr) Male 1lb Room: Loc:15 Director Field Services:TISH HODGE Test ind: Impression Assessment and Plan Patient is a pleasant 71 y/o male, with PMHx of CAD s/p AL, ischemic cardiomyopathy, s/p biventricular ICD, chronic systolic CHF w/ EF of 15-20%, HTN , and T2DM, who presented to the ED because of shortness of breath. Acute on chronic systolic CHF exacerbation: - Admit to tele for cardiac monitoring - Trend cardiac enzymes- initial trop negative - EKG QAM and PRN for chest pain - O2 protocol, wean as tolerated- does NOT wear O2 supplement at home - IV Lasix 40 mg BID; hold home regimen of Lasix 40 mg PO daily - Monitor I&Os and daily weights- dry weight is 215 CAD s/p AL, ischemic cardiomyopathy, s/p biventricular ICD- follows w/ Dr. Pizarro : - Continue Coreg 6.25 mg BID, Potassium 20 mEq supplement, ASA 81 mg daily HTN: Continue Lisinopril 10 mg daily T2DM: - Continue Glipizide 5 mg daily - BSG ACHS and ISS DVT prophylaxis: Heparin SQ BID Code Status: FULL, NO MECH VENTILATION Dispo: From home, lives w/ - no discharge needs anticipated Level of Care Telemetry Resuscitation Status FULL NO MECH VENTILATION VTE Prophylaxis VTE Risk Assessment Done? Y/N: Yes Risk Level: Moderate Given or contraindicated: Unfractionated heparin SQ, T.E.D. Stockings, SCD's
[2017-08-11] MEDS ORDERED: GLUCAGON FOR INJ 1 MG VIAL SQ PRN (11:30)
[2017-08-11] MEDS ORDERED: GLUCOSE 10 TABS/TUBE PO PRN (11:30)
[2017-08-11] MEDS ORDERED: DEXTROSE 50% 50 ML SYR IV PRN (11:30)
[2017-08-11] MEDS ORDERED: GLUCOSE 40% GEL 15 GM TUBE PO PRN (11:30)
[2017-08-11] MEDS: ASPIRIN 81 MG ECTAB PO SCH (12:05)
[2017-08-11] MEDS: OMEGA-3 (PURIFIED FISH OIL) 1 GM CAP PO SCH (12:07)
[2017-08-11] MEDS: POTASSIUM CHLORIDE 20 MEQ TABCR PO SCH (12:07)
[2017-08-11] MEDS: LISINOPRIL 10 MG TAB PO SCH (12:07)
[2017-08-11] MEDS: INSULIN ASPART 100 UNITS/ML 3 ML PEN SC SCH ×3 (12:11→20:40)
[2017-08-11] MEDS: HEPARIN SOD 5000 UNIT/0.5 ML CARP SQ SCH ×2 (12:12→23:22)
[2017-08-11] MEDS ORDERED: IV FLUIDS COMPLETED PRN (12:30)
--- NOTE | 2017-08-11 14:43 | Medical Student: [facility] ---
Med Student History & Physical Date & Time of Service: Aug 11, 2017 at 14:00 Chief Complaint: CHF Primary Care Physician: Rangel Pizarro M.D. History of Present Illness Source: patient, clinic records, hospital records 71 year old male with a history of CHF with an EF of 15-20% presenting with shortness of breath upon awakening this morning. He just finished a course of doxycycline for bronchitis. He denies any fevers, chills, chest pain, edema, or worsening of cough. He has had similair episodes resulting in hospitalization in the [place] of several years prior. He has an ICD implanted. Past Medical/Surgical History Medical Problems: (1) Acute CHF Status: Acute (2) Acute CHF (congestive heart failure) Status: Acute (3) CHF (congestive heart failure) Status: Acute (4) CHF (congestive heart failure) Status: Acute (5) Respiratory failure Status: Acute Family History Denies family history of blood clots Social History Smoking Status: Former Smoker Marital Status: Housing status: lives with family Occupational Status: retired Immunizations History of Influenza Vaccine: No Influenza Vaccine Date: Jun 01, 2009 History of Tetanus Vaccine?: Unknown History of Pneumococcal: Yes Pneumococcal Date: Jun 16, 2011 History of Hepatitis B Vaccine: Unknown Allergies Coded Allergies: BEE STING (Verified Allergy, Unknown, `, 09/16/16) Penicillins (Verified Allergy, Unknown, `, 09/16/16) Statins (Unverified Allergy, Unknown, myalgia, 09/16/16) Levofloxacin (Verified Adverse Reaction, Intermediate, nightmares, 09/16/16 ) pt refuses to take Medications Aspirin (Aspirin 81), 81 MG PO DAILY Carvedilol (Carvedilol), 12.5 MG PO BIDM Cholecalciferol (Vitamin D), 5,000 UNIT PO DAILY Fish Oil (Lovejoy-3), 1 CAP PO DAILY Furosemide (Lasix), 40 MG PO DAILY Glipizide (Glucotrol), 5 MG PO DAILY Lisinopril (Zestril), 10 MG PO DAILY Metolazone (Zaroxolyn), 2.5 MG PO DAILY PRN for fluid retention Metoprolol Succ (Toprol Xl) (Toprol-Xl), 50 MG PO DAILY Nitroglycerin (Nitroglycerin), 1 SPRAY UT DIRECTED PRN for Chest Pain Potassium Chloride (Potassium Chloride ER), 20 MEQ PO DAILY Review of Systems Constitutional: + weakness, + fatigue, No fever, No chills, No weight loss Respiratory: + cough, + shortness of breath, + dyspnea on exertion, No sputum, No wheezing Cardiovascular: + orthopnea, No chest pain, No edema, No palpitations Abdomen: No pain, No nausea, No vomiting, No diarrhea, No constipation Musculoskeletal: No swelling, No calf pain Genitourinary - Male: No dysuria, No urinary frequency Physical Exam Vital Signs (24 Hours) Date Time Temp Pulse Resp B/P (MAP) Pulse Ox O2 Delivery O2 Flow Rate FiO2 08/11/17 12:00 Nasal Cannula 3.0 08/11/17 11:15 36.7 77 20 112/71 (85) 95 Nasal Cannula 4.0 08/11/17 10:24 80 20 117/68 93 Nasal Cannula 3.0 08/11/17 09:59 95 Nasal Cannula 3.0 08/11/17 09:25 85 08/11/17 09:00 79 22 127/76 94 Nasal Cannula 4.0 08/11/17 08:25 94 Nasal Cannula 4.0 08/11/17 07:58 36.7 78 20 166/82 96 Nasal Cannula 4.0 60 08/11/17 07:11 94 Nasal Cannula 4.0 08/11/17 07:10 95 Nasal Cannula 4.0 08/11/17 07:07 36.7 87 19 137/73 99 Nasal Cannula 4.0 08/11/17 07:01 85 28 120/90 99 BiPAP 08/11/17 06:50 83 28 102/75 100 BiPAP 60 08/11/17 06:46 80 08/11/17 06:40 83 60 08/11/17 06:28 36.7 85 22 166/95 96 CPAP 10.0 08/11/17 06:28 96 CPAP 10.0 General Appearance: WD/WN, no apparent distress Head: normocephalic, atraumatic Eyes: normal inspection, EOMI, sclerae normal ENT: hearing grossly normal, pharynx normal Neck: supple, no JVD Respiratory/Chest: chest non-tender, lungs clear, normal breath sounds (mild end-expiratory wheezing), no respiratory distress, no accessory muscle use Cardiovascular: regular rate, rhythm, no edema, no gallop, no JVD, no murmur, normal peripheral pulses Abdomen/GI: normal bowel sounds, non tender, soft, no organomegaly, no pulsatile mass Extremities/Musculoskelatal: normal inspection, no calf tenderness, no pedal edema, non-tender Neurologic/Psych: alert, normal mood/affect, oriented x 3 Skin: normal color, warm/dry, no rash Diagnostics Laboratory Results Results Past 24 Hours Test 08/11/17 06:41 08/11/17 06:47 08/11/17 06:50 08/11/17 06:54 Range/Units White Blood Count 11.17 4.8-10.8 K/uL Red Blood Count 4.46 4.7-6.1 M/uL Hemoglobin 14.6 14.0-18.0 g/dL Hematocrit 43.0 42-52 % Mean Corpuscular Volume 96.4 80-100 fL Mean Corpuscular Hemoglobin 32.7 25-34 pg Mean Corpuscular Hemoglobin Concent 34.0 32-36 g/dl Platelet Count 339 130-400 K/uL Mean Platelet Volume 10.6 7.4-10.4 fL Neutrophils (%) (Auto) 75.6 % Lymphocytes (%) (Auto) 16.4 % Monocytes (%) (Auto) 5.9 % Eosinophils (%) (Auto) 1.2 % Basophils (%) (Auto) 0.4 % Neutrophils # (Auto) 8.45 1.4-6.5 K/uL Lymphocytes # (Auto) 1.83 1.2-3.4 K/uL Monocytes # (Auto) 0.66 0.11-0.59 K/uL Eosinophils # (Auto) 0.13 0-0.5 K/uL Basophils # (Auto) 0.04 0-0.2 K/uL RDW Standard Deviation 48.9 36.4-46.3 fL RDW Coefficient of Variation 13.9 11.5-14.5 % Immature Granulocyte % (Auto) 0.5 % Immature Granulocyte # (Auto) 0.06 0.00-0.02 K/uL Prothrombin Time 12.3 9.0-12.0 SECONDS Prothromb Time International Ratio 1.2 0.9-1.1 Activated Partial Thromboplast Time 26.0 21.0-31.0 SECONDS Partial Thromboplastin Ratio 1.0 Sodium Level 135 136-145 mmol/L Potassium Level 4.2 3.5-5.1 mmol/L Chloride Level 103 98-107 mmol/L Carbon Dioxide Level 23 21-32 mmol/L Anion Gap 9.0 14.0 16-25 mmol/L Blood Urea Nitrogen 20 7-18 mg/dl Creatinine 1.23 0.60-1.40 mg/dl Est Creatinine Clear Calc Drug Dose 64.1 ml/min Estimated GFR () 67.1 Estimated GFR (Non- 57.9 BUN/Creatinine Ratio 16.6 10-20 Random Glucose 209 70-99 mg/dl Calcium Level 8.5 8.5-10.1 mg/dl Magnesium Level 2.3 1.8-2.4 mg/dl Total Creatine Kinase 60 39-308 U/L Creatine Kinase MB 2.2 0.5-3.6 ng/ml Creatine Kinase MB Ratio 3.7 0-3.0 Troponin I 0.037 0-0.045 ng/ml Pro-B-Type Natriuretic Peptide 2950 0-900 pg/ml Bedside Lactic Acid Venous 2.00 0.90-1.70 mmol/L Bedside Hemoglobin 15.0 14.0-18.0 g/dl Bedside Hematocrit 44 42-52 % Bedside Sodium 138 135-144 mEq/L Bedside Potassium 4.5 3.3-5.0 mEq/L Bedside Chloride 105 101-112 mEq/L Bedside Total CO2 25 24-31 mEq/l Bedside Blood Urea Nitrogen 25 7-18 mg/dl Bedside Creatinine 1.2 0.6-1.3 mg/dl Bedside Glucose (other) 209 70-99 mg/dl Bedside Ionized Calcium (Heidy) 1.10 1.12-1.32 mmol/l Blood Gas Sample Site R Radial Bedside Blood Gas pH (LAB) 7.34 7.35-7.45 Bedside Blood Gas pCO2 (LAB) 40 35-46 mmHg Bedside Blood Gas pO2 (LAB) 133 80-95 mmHg Bedside Blood Gas HCO3 (LAB) 22 19-24 meq/L Bedside Blood Gas Total CO2 23 24-31 mEq/l Bedside Blood Gas Base Excess (LAB) -4.0 -9-1.8 meq/L Bedside Blood Gas O2 Saturation 99.0 90-95 % Augie Test Pass Oxygen Delivery Device BIPAP Bedside Oxygen Rate (breaths/min) 12 Bedside FiO2 60 % Blood Gas IPAP 12 Test 08/11/17 11:30 Range/Units Bedside Glucose 167 70-99 mg/dl Diagnostic Radiology CHEST XRAY IMPRESSION: 1. Cardiomegaly with pulmonary edema. 2. Patchy asymmetric right perihilar and right basilar alveolar opacities likely reflect alveolar pulmonary edema with atelectasis and/or superimposed pneumonia also in the differential. No change from prior EKG Impression Assessment and Plan Assessment: 71 year old male presenting with shortness of breath likely due to acute on chronic congestive heart failure exacerbated by recent bronchitis. Plan: 1. CHF exacerbation: No edema or JVD, no crackles auscultated in lungs. 1.5 L have been removed by Lasix. Given CPAP in ER and NG paste. Now on 3L NC, 95%. Receiving 40mg Lasix IV BID. NG 0.4mg tab PRN. EF was 15-20% in 2010, consider repeat echo. On telemetry. 2. CAD: EKG shows no acute change. Troponin was not elevated. 3. DVT prophylaxis: heparin 5000 units SQ q12hrs.ASA 81mg daily 4. T2DM: SSI, glucagin PRN, glucose PRN. 5. HTN: Carvedilol 6.25mg BID, Lisinopril 10mg daily. KCL 20mEq. Disposition: Will admit to telemetry. Continue observation overnight. If continues to improve , will likely discharge tomorrow. Level of Care Telemetry Advanced Directives Existing Living Will: No Existing Power of Chief Steward/Stewardess: No DVT Prophylaxis unfractionated heparin SQ Social Service Consult None Apply Note Total Time: Critical Care 30 - 74 minutes
[2017-08-11] MEDS: CARVEDILOL 6.25 MG TAB PO SCH (17:01)
[2017-08-11] MEDS: FUROSEMIDE INJ 40 MG in SYRINGE 0 ML IV SCH (17:01)
[2017-08-12 04:12] VITALS: BP 110/66; PULSE 68; TEMP 36.6; O2SAT 96
[2017-08-12 06:07] LABS: HEMATOCRIT 38.2 % (42-52); MEAN CORPUSCULAR HEMOGLOBIN 32.4 pg (25-34); MEAN CORPUSCULAR HGB CONC 33.8 g/dl (32-36); MEAN PLATELET VOLUME 10.5 fL (7.4-10.4); PLATELET COUNT 257 K/uL (130-400); RED BLOOD COUNT 3.98 M/uL (4.7-6.1); WHITE BLOOD COUNT 7.06 K/uL (4.8-10.8)
[2017-08-12 06:50] LABS: BUN/CREATININE RATIO 21.2 (10-20); CALCIUM 8.3 mg/dl (8.5-10.1); CREATININE 1.17 mg/dl (0.60-1.40); POTASSIUM 3.7 mmol/L (3.5-5.1)
[2017-08-12 07:10] VITALS: BP 119/67; PULSE 70; TEMP 36.6; O2SAT 97
[2017-08-12] MEDS: POTASSIUM CHLORIDE 20 MEQ TABCR PO SCH (08:20)
[2017-08-12] MEDS: LISINOPRIL 10 MG TAB PO SCH (08:20)
[2017-08-12] MEDS: CARVEDILOL 6.25 MG TAB PO SCH (08:20)
[2017-08-12] MEDS: ASPIRIN 81 MG ECTAB PO SCH (08:21)
[2017-08-12] MEDS: FUROSEMIDE INJ 40 MG in SYRINGE 0 ML IV SCH (08:22)
[2017-08-12] MEDS: OMEGA-3 (PURIFIED FISH OIL) 1 GM CAP PO SCH (08:22)
[2017-08-12] MEDS: INSULIN ASPART 100 UNITS/ML 3 ML PEN SC SCH (08:26)
[2017-08-12] MEDS ORDERED: CARV6.252 PO (10:32)
--- NOTE | 2017-08-12 10:34 | Discharge Instructions ---
Discharge Instructions Date of Service Aug 12, 2017. Admission Reason for Admission: CHF Discharge Discharge Diagnosis / Problem: CHF exacerbation Discharge Goals Goal(s): Decrease discomfort, Improve function, Increase independence, Improve disease control, Learn about illness, Diagnostic testing, Therapeutic intervention, Prevent Disease Progression Activity Recommendations Activity Limitations: resume your previous activity . Instructions / Follow-Up Instructions / Follow-Up Resume all regular home medications as prescribed FOLLOW-UPS: Please follow-up with your PCP within 5-7 days Follow-up with Cardiology in 1-2 weeks Please follow-up/keep all of your subspecialty appointments Call your Primary Care doctor if any of the following symptoms or problems start or get worse: * Shortness of breath or difficulty breathing * Wake up at night short of breath * Chest pain * Cough * Swelling of your hands, feet, or legs * More fatigued or tired with your normal activity * Palpitations - sudden fast heart beats WEIGHT * Weigh yourself every morning after using the bathroom. * Use the same scale. * Wear the same amount of clothing. * Write your weight down on a chart. * Call your Primary Care doctor if you gain more than 2-3 pounds in 1-2 days. MEDICATIONS * Use this discharge instruction sheet for medication instructions. * Take your medications at the time your doctor ordered. * Do not skip a dose of your medicines. * If you miss a dose of medicine, take it as soon as possible, but DO NOT DOUBLE A DOSE. * Read your medicine information when you get home. * Know all of the side effects of your medicine. If in doubt, ask your pharmacist * Call your Primary Care doctor's office if you have any side effects. * Be sure all of your doctors know what medicine and herbs you take (including cold, flu, and herbal medicine). Take the following with you to your follow-up doctor appointments: * Weight Chart * Medication List * List of questions Do not drink excessive alcohol, beer or wine. Current Hospital Diet Patient's current hospital diet: Diabetes Type 2 Diet, AHA Diet (Heart Healthy) , Low Sodium Diet (2gm Na) Discharge Diet Recommended Diet: AHA Diet (Heart Healthy), Low Sodium Diet (2gm Na), Diabetes Type 2 Diet Pending Studies Studies pending at discharge: no Medical Emergencies . Who to Call and When: Call 911 or go to the Emergency Room if: * If at any time you feel your situation is an emergency * You have tightness or pain in your chest that does not go away with rest or Nitroglycerin * You are very short of breath even with rest . Non-Emergent Contact Non-Emergency issues call your: Primary Care Provider . . "Provider Documentation" section prepared by [facility]. . VTE Core Measure Inpt VTE Proph given/why not?: Unfractionated heparin SQ, T.E.D. Stockings, SCD 's
--- NOTE | 2017-08-12 10:39 | Discharge Summary ---
Discharge Summary Date of Service Aug 12, 2017. Discharge Summary Admission Date: Aug 11, 2017 at 09:07 Discharge Date: Aug 12, 2017 Discharge Disposition: Home Principal Diagnosis: CHF exacerbation Problems/Secondary Diagnoses: Acute on chronic systolic CHF exacerbation CAD s/p [place] ischemic cardiomyopathy s/p biventricular ICD HTN T2DM Immunizations: Have You Had Influenza Vaccine: No Influenza Vaccine Date: Jun 01, 2009 History of Tetanus Vaccine?: Unknown History of Pneumococcal: Yes Pneumococcal Date: Jun 16, 2011 History of Hepatitis B Vaccine: Unknown Procedures: CHEST ONE VIEW PORTABLE HISTORY: 71 years-old Male Chest Pain acute atypical chest pain COMPARISON: Chest radiograph 08/26/2016, thyroid ultrasound 10/01/2016, CTA of the chest 10/29/2015 TECHNIQUE: Portable AP view of the chest FINDINGS: Persistent leftward deviation of the upper thoracic trachea suggests thyroid goiter. Cardiac silhouette is again moderately enlarged. Right pectoral pacer/AICD is unchanged. No pneumothorax or large pleural effusion. Pulmonary vascular congestion is noted with bilateral perihilar and bibasilar predominant mixed interstitial and alveolar opacities, right than left. Bones of the chest appear grossly intact. IMPRESSION: 1. Cardiomegaly with pulmonary edema. 2. Patchy asymmetric right perihilar and right basilar alveolar opacities likely reflect alveolar pulmonary edema with atelectasis and/or superimposed pneumonia also in the differential. The above report was generated using voice recognition software. It may contain grammatical, syntax or spelling errors. Electronically signed by: Marshall Ruffin M.D. 08/11/2017 6:55 AM Dictated Date/Time: 08/11/2017 6:51 AM The status of this report is Signed. Draft = Not yet reviewed or approved by Radiologist. Signed = Reviewed and approved by Radiologist. Medication Reconciliation Continued Medications: Aspirin (Aspirin 81) 81 Mg Tab 81 MG PO DAILY Carvedilol (Coreg) 6.25 Mg Tab 1 TAB PO BID for 90 Days, #180 TAB 1 Refill Cholecalciferol (Vitamin D) 5,000 Unit Tab 5000 UNIT PO DAILY Fish Oil ([place]-3) 1 Ea Cap 1 CAP PO DAILY, 0 Refills Furosemide (Lasix) 40 Mg Tab 40 MG PO DAILY, 0 Refills may take 2 tablets twice a day if needed Glipizide (Glucotrol) 5 Mg Tab 5 MG PO DAILY, TAB Lisinopril (Zestril) 10 Mg Tab 10 MG PO DAILY, 0 Refills Metolazone (Zaroxolyn) 2.5 Mg Tab 2.5 MG PO DAILY PRN for fluid retention Nitroglycerin (Nitroglycerin) 0.4 Mg/Hr Dis 1 SPRAY UT DIRECTED PRN for Chest Pain Potassium Chloride (Potassium Chloride ER) 20 Meq Tabcr 20 MEQ PO DAILY may take extra dose if taking extra lasix Referrals At Discharge Follow up Referrals: Inspector Plating Referral - Within 1-2 Weeks with Rangel Pizarro M.D. Discharge Exam Review of Systems: Constitutional: No fever, No chills, No sweats, No weakness, No fatigue Eyes: No worsening of vision ENT: No hearing loss Respiratory: No cough, No sputum, No shortness of breath, No hemoptysis Cardiovascular: No chest pain, No edema, No palpitations Abdomen: No pain, No nausea, No vomiting, No diarrhea, No constipation Musculoskeletal: No joint pain, No muscle pain, No swelling, No calf pain Genitourinary - Male: No hematuria Neurologic: No weakness, No numbness/tingling Psychiatric: No depression symptoms, No anxiety Endocrine: No fatigue Hematologic / Lymphatic: No abnormal bleeding/bruising Integumentary: No rash, No itch, No new/changing skin lesions Physical Exam: General Appearance: no apparent distress Eyes: normal inspection, PERRL ENT: hearing grossly normal Neck: supple Respiratory/Chest: lungs clear, no respiratory distress, no accessory muscle use Cardiovascular: regular rate, rhythm Abdomen / GI: normal bowel sounds, non tender, soft Extremities: no calf tenderness, no pedal edema Neurologic/Psychiatric: alert, normal mood/affect, oriented x 3 Skin: normal color, warm/dry, no rash Hospital Course Admission H&P: Patient is a pleasant 71 y/o male, with PMHx of CAD s/p [place], ischemic cardiomyopathy, s/p biventricular ICD, chronic systolic CHF w/ EF of 15-20%, HTN , and T2DM, who presented to the ED because of shortness of breath. Patient woke up around 0500 to go to the bathroom, when he became acutely short of breath. He denies any other symptoms. He completed a 10 day course of Doxycycline on 08/10 for bronchitis. He notes his productive cough has resolved. He follows w/ Dr. Pizarro- dry weight is 215 w/ trigger weight of 218 for which he is to double his Lasix dose (80 mg). He notes his weight at home was 214 today, so he did not take an extra Lasix dose- weight here is 225. He received IV Lasix 40 mg in ED with improvement in SOB. He follows a low-sodium diet- denies noncompliance. Patient denies any fever, chills, sweats, lightheadedness, dizziness, vision changes, CP, palpitations, edema, wheezing, cough, abdominal pain, nausea, vomiting, diarrhea, urinary symptoms, melena, numbness/tingling, weakness, muscle/joint pain, anxiety/depression, active bleeding, or new skin discoloration/changes. Physical Exam Vital Signs Date Time Temp Pulse Resp B/P (MAP) Pulse Ox O2 Delivery O2 Flow Rate FiO2 08/11/17 09:00 79 22 127/76 94 Nasal Cannula 4.0 08/11/17 07:58 36.7 78 20 166/82 96 Nasal Cannula 4.0 60 08/11/17 07:11 94 Nasal Cannula 4.0 08/11/17 07:10 95 Nasal Cannula 4.0 08/11/17 07:07 36.7 87 19 137/73 99 Nasal Cannula 4.0 08/11/17 07:01 85 28 120/90 99 BiPAP 08/11/17 06:50 83 28 102/75 100 BiPAP 60 08/11/17 06:46 80 08/11/17 06:40 83 60 08/11/17 06:28 36.7 85 22 166/95 96 CPAP 10.0 08/11/17 06:28 96 CPAP 10.0 General Appearance: no apparent distress, + pertinent finding (O2 NC ) Head: normocephalic, atraumatic Eyes: normal inspection, PERRL ENT: hearing grossly normal Neck: supple, no JVD Respiratory/Chest: no respiratory distress, no accessory muscle use, + crackles (faint crackles bilateral lung bases ) Cardiovascular: regular rate, rhythm Abdomen/GI: normal bowel sounds, non tender, soft Back: normal inspection Extremities/Musculoskelatal: no calf tenderness, no pedal edema Neurologic/Psych: alert, normal mood/affect, oriented x 3 Skin: normal color, warm/dry, no rash Hospital Course: Patient is a pleasant 71 y/o male, with PMHx of CAD s/p [place], ischemic cardiomyopathy, s/p biventricular ICD, chronic systolic CHF w/ EF of 15-20%, HTN , and T2DM, who presented to the ED because of shortness of breath. Acute on chronic systolic CHF exacerbation: - Admit to tele for cardiac monitoring - Trend cardiac enzymes- initial trop negative - EKG QAM and PRN for chest pain - O2 protocol, wean as tolerated- does NOT wear O2 supplement at home - IV Lasix 40 mg BID; resume home regimen of Lasix 40 mg PO daily and 80 mg PRN for weight gain at discharge - Monitor I&Os and daily weights- dry weight is 215 CAD s/p [place], ischemic cardiomyopathy, s/p biventricular ICD- follows w/ Dr. Pizarro : Continue Coreg 6.25 mg BID, Potassium 20 mEq supplement, ASA 81 mg daily HTN: Continue Lisinopril 10 mg daily T2DM: - Continue Glipizide 5 mg daily - BSG ACHS and ISS while inpatient DVT prophylaxis: Heparin SQ BID Code Status: FULL, NO MECH VENTILATION Dispo: Discharge to home I agree with PA assessment and plan and have seen and examined pt myself Resting comfortably in bed VSS Labs reviewed Elev proBNP CXR reviewed, congestive findings Pt noted to be in CHF exacerbation Severely reduced EF noted 15% on previous ECHO Start on lasix 40 mg IV BID EKG unchanged No chest pain Pt compliant with meds, appropriate diuresis, can DC home on home dose of lasix Total Time Spent: Greater than 30 minutes This includes examination of the patient, discharge planning, medication reconciliation, and communication with other providers. Discharge Instructions Please refer to the electronic Patient Visit Report (Discharge Instructions) for additional information. Follow-Up Please follow-up with your PCP within 5-7 days Follow-up with Cardiology in 1-2 weeks Please follow-up/keep all of your subspecialty appointments Additional Copies To Leonor Day DO
[2017-08-12 10:57] VITALS: BP 119/67; PULSE 70; TEMP 36.6; O2SAT 97
--- NOTE | 2017-08-12 11:04 | Medical Student: [facility] ---
Med Student Progress Note Date of Service Aug 12, 2017. Subjective Pt evaluation today including: conversation w/ patient, physical exam, chart review, lab review, review of studies, review of inpatient medication list Voiding: no incontinence 71 year old male with a history of CHF with an EF of 15-20% presenting with shortness of breath upon awakening this morning. He just finished a course of doxycycline for bronchitis. He denies any fevers, chills, chest pain, edema, or worsening of cough. He has had similair episodes resulting in hospitalization in the [place] of several years prior. He has an ICD implanted. Today he is doing much better. He is on room air without distress, no sign of fluid overload. He has had 1.7L of fluid removed. Slight bump in trop last after noon to 0.061, but was 0.052 7 hours later. Low concern for ischemic origin. EKG shows no acute change. Review of Systems Constitutional: No fever, No chills Respiratory: No cough, No sputum, No wheezing, No shortness of breath (resolved ) Cardiac: No chest pain, No orthopnea, No edema, No palpitations Abdomen: No pain, No nausea, No vomiting, No diarrhea Male : No dysuria, No urinary frequency Skin: No rash, No itch All Other Systems: Reviewed and Negative Objective Vital Signs Date Time Temp Pulse Resp B/P (MAP) Pulse Ox O2 Delivery O2 Flow Rate FiO2 08/12/17 08:00 Room Air 08/12/17 07:10 36.6 70 16 119/67 (84) 97 Room Air 08/12/17 04:12 36.6 68 20 110/66 (81) 96 Room Air 08/12/17 04:00 Room Air 08/12/17 00:00 Room Air 08/11/17 23:29 36.7 67 18 94/53 (67) 95 Room Air 08/11/17 20:00 Room Air 08/11/17 19:44 36.6 70 18 109/70 (83) 91 Room Air 08/11/17 16:00 96 Room Air 08/11/17 15:22 36.6 69 18 114/70 (85) 95 Nasal Cannula 0.5 08/11/17 12:00 Nasal Cannula 3.0 08/11/17 11:15 36.7 77 20 112/71 (85) 95 Nasal Cannula 4.0 Physical Exam General Appearance: WD/WN, no apparent distress Eyes: bilateral eyes normal inspection, bilateral eyes EOMI ENT: hearing grossly normal, pharynx normal Neck: supple, no JVD Respiratory/Chest: chest non-tender, lungs clear, normal breath sounds, no respiratory distress, no accessory muscle use Cardiovascular: regular rate, rhythm, no edema, no gallop, no JVD, no murmur Abdomen: normal bowel sounds, non tender, soft, no organomegaly, no pulsatile mass Extremities: non-tender, normal inspection, no pedal edema, no calf tenderness Neurologic/Psychiatric: alert, normal mood/affect, oriented x 3 Skin: normal color, warm/dry, no rash Laboratory Results Last 24 Hours Test 08/11/17 11:30 08/11/17 15:00 08/11/17 15:06 08/11/17 16:16 Bedside Glucose 167 mg/dl 156 mg/dl Creatine Kinase MB Ratio Creatine Kinase MB 2.4 ng/ml Troponin I 0.061 ng/ml Test 08/11/17 20:05 08/11/17 22:50 08/12/17 05:32 08/12/17 07:28 Bedside Glucose 97 mg/dl 117 mg/dl Creatine Kinase MB 2.3 ng/ml Creatine Kinase MB Ratio Troponin I 0.052 ng/ml White Blood Count 7.06 K/uL Red Blood Count 3.98 M/uL Hemoglobin 12.9 g/dL Hematocrit 38.2 % Mean Corpuscular Volume 96.0 fL Mean Corpuscular Hemoglobin 32.4 pg Mean Corpuscular Hemoglobin Concent 33.8 g/dl RDW Standard Deviation 48.8 fL RDW Coefficient of Variation 14.0 % Platelet Count 257 K/uL Mean Platelet Volume 10.5 fL Sodium Level 136 mmol/L Potassium Level 3.7 mmol/L Chloride Level 103 mmol/L Carbon Dioxide Level 25 mmol/L Anion Gap 8.0 mmol/L Blood Urea Nitrogen 25 mg/dl Creatinine 1.17 mg/dl Est Creatinine Clear Calc Drug Dose 65.5 ml/min Estimated GFR () 71.3 Estimated GFR (Non- 61.5 BUN/Creatinine Ratio 21.2 Random Glucose 112 mg/dl Calcium Level 8.3 mg/dl Medications Current Inpatient Medications Medications (Trade) Dose Ordered Sig/Joelle Route Start Time Stop Time Status Last Admin Dose Admin Heparin Sodium (Porcine) (Heparin Sq 5000 Unit/0.5ml) 5,000 unit Q12H SQ 08/11/17 12:00 09/10/17 11:59 08/11/17 23:22 5,000 UNIT Acetaminophen (Tylenol Tab) 650 mg Q4H PRN PO 08/11/17 09:00 09/10/17 08:59 Al Hydrox/Mg Hydrox/Simethicone (Maalox Max Susp) 15 ml Q4H PRN PO 08/11/17 09:00 09/10/17 08:59 Magnesium Hydroxide (Milk Of Magnesia Susp) 30 ml Q12H PRN PO 08/11/17 09:00 09/10/17 08:59 Ondansetron HCl (Zofran Inj) 4 mg Q6H PRN IV 08/11/17 09:00 09/10/17 08:59 Nitroglycerin (Nitrostat Tab) 0.4 mg UD PRN SL 08/11/17 09:00 09/10/17 08:59 Morphine Sulfate (MoRPHine SULFATE INJ) 2 mg Q30M PRN IV 08/11/17 09:00 08/25/17 08:59 Polyethylene (Miralax Powder Packet) 17 gm DAILY PRN PO 08/11/17 09:00 09/10/17 08:59 Aspirin (Ecotrin Tab) 81 mg DAILY PO 08/11/17 09:00 09/10/17 08:59 08/12/17 08:21 81 MG Carvedilol (Coreg Tab) 6.25 mg BIDM PO 08/11/17 17:00 09/10/17 17:59 08/12/17 08:20 6.25 MG Fish Oil ([place]-3 (Purified Fish Oil) Cap) 1 gm DAILY PO 08/11/17 09:00 09/10/17 08:59 08/12/17 08:22 1 GM Glipizide (Glucotrol Tab) 5 mg DAILY PO 08/11/17 09:00 09/10/17 08:59 08/12/17 08:21 5 MG Lisinopril (Zestril Tab) 10 mg DAILY PO 08/11/17 09:00 09/10/17 08:59 08/12/17 08:20 10 MG Potassium Chloride (Klor-Con Tab) 20 meq DAILY PO 08/11/17 09:00 09/10/17 08:59 08/12/17 08:20 20 MEQ Furosemide 40 mg/ Syringe 4 ml @ 4 mls/min BID17 IV 08/11/17 17:00 09/10/17 16:59 08/12/17 08:22 4 MLS/MIN Insulin Aspart (novoLOG ASPART) SLIDING SCALE G... ACHS SC 08/11/17 11:00 09/10/17 10:59 08/12/17 08:26 4 UNITS Glucose (Glucose 40% Gel) 15-30 GRAMS 15 GRAMS... UD PRN PO 08/11/17 11:30 09/10/17 11:29 Glucose (Glucose Chew Tab) 4-8 Tablets 4 Tabl... UD PRN PO 08/11/17 11:30 09/10/17 11:29 Dextrose (Dextrose 50% 50ML Syringe) 25-50ML OF 50% DW IV FOR... UD PRN IV 08/11/17 11:30 09/10/17 11:29 Glucagon (Glucagon Inj) 1 mg UD PRN SQ 08/11/17 11:30 09/10/17 11:29 Miscellaneous (Iv Fluids Completed) 1 ea PRN PRN N/A 08/11/17 12:30 08/11/18 12:29 Assessment and Plan Problems Acute CHF (congestive heart failure) Implantation of automatic cardioverter/defibrillator, total system Respiratory failure Chronic congestive heart failure Ischemic cardiomyopathy Left bundle branch block Assessment and Plan: Assessment: 71 year old male presenting with shortness of breath likely due to acute on chronic congestive heart failure exacerbated by recent bronchitis. Plan: 1. CHF exacerbation: No edema or JVD, no crackles auscultated in lungs. 1.7 L have been removed by 40 mg Lasix BID. Given CPAP in ER and NG paste. 97% on room air. Change to home 40mg Lasix PO daily.EF was 15-20% in 2016. Will discharge home. 2. CAD: EKG shows no acute change. Troponin bumped, but trended downward after. Low concern for acute ischemia. ASA 81mg daily 4. T2DM: Home glipizide 5mg daily. 5. HTN: Carvedilol 6.25mg BID, Lisinopril 10mg daily. KCL 20mEq. Disposition: Will discharge home on home meds. Discharge planning: home
== END 2017-08-12 11:43 | disposition home or self-care (01) ==
LOC: EDBD 06:28 → C.EDB 06:29 → C.MED 09:07 → ENRESERV 10:05
PROVIDERS: ADMIT Hospitalist; ATTEND Hospitalist
DX: I50.23 Acute on chronic systolic (congestive) heart failure (principal); I25.10 Atherosclerotic heart disease of native coronary artery without angina pectoris; I25.2 Old myocardial infarction; I25.5 Ischemic cardiomyopathy; Z95.810 Presence of automatic (implantable) cardiac defibrillator; I11.0 Hypertensive heart disease with heart failure; E11.9 Type 2 diabetes mellitus without complications; Z98.890 Other specified postprocedural states; Z79.82 Long term (current) use of aspirin; Z79.899 Other long term (current) drug therapy; Z88.0 Allergy status to penicillin; Z82.49 Family history of ischemic heart disease and other diseases of the circulatory system

== ENCOUNTER → 2017-08-17 | Outpatient (CLI) | payer BC ==
[~2017-08-17] MED LIST changes: +ASPI-435 PO; -ASPI81TA28 PO; +CARV6.252 PO; -CHOL100010 PO; +CHOL1TAB42 PO; -METO50TA7 PO; -MULT-506 PO; -SYN125 PO
[2017-08-17 12:22] LABS: BASO % 0.4 %; BASO ABS # 0.03 K/uL (0-0.2); COMPLETE YES; EOS % 1.2 %; HEMATOCRIT 42.1 % (42-52); IG% 0.2 %; LYMPH % 24.4 %; LYMPH ABS # 1.96 K/uL (1.2-3.4); MEAN CELL VOLUME 96.3 fL (80-100); MEAN CORPUSCULAR HEMOGLOBIN 32.7 pg (25-34); MEAN PLATELET VOLUME 11.2 fL (7.4-10.4); MONO % 7.3 %; NEUT % 66.5 %; PLATELET COUNT 256 K/uL (130-400); RED BLOOD COUNT 4.37 M/uL (4.7-6.1); WHITE BLOOD COUNT 8.03 K/uL (4.8-10.8)
[2017-08-17 12:56] LABS: BLOOD UREA NITROGEN 16 mg/dl (7-18); BUN/CREATININE RATIO 14.3 (10-20); CALCIUM 8.6 mg/dl (8.5-10.1); CARBON DIOXIDE 31 mmol/L (21-32); CHLORIDE 100 mmol/L (98-107); CREATININE 1.13 mg/dl (0.60-1.40); GLUCOSE 108 mg/dl (70-99); POTASSIUM 4.2 mmol/L (3.5-5.1); SODIUM 133 mmol/L (136-145); TOTAL IRON BINDING CAPACITY 279 mcg/dl (250-450)
== END | disposition home or self-care (01) ==
LOC: C.LABPBG 10:01
PROVIDERS: ATTEND Family Medicine
DX: Z00.00 Encounter for general adult medical examination without abnormal findings (principal); I50.9 Heart failure, unspecified

== ENCOUNTER → 2017-08-27 | Outpatient (CLI) | payer BC ==
[~2017-08-27] MED LIST changes: +RIVA1TAB4 PO; +SACU1TAB PO; +TPRSR50 PO
== END | disposition home or self-care (01) ==
LOC: C.PATH 08:34
PROVIDERS: ATTEND Family Medicine
DX: R22.1 Localized swelling, mass and lump, neck (principal)

== ENCOUNTER → 2017-09-23 | Outpatient (CLI) | payer BC ==
[~2017-09-23] MED LIST changes: -RIVA1TAB4 PO; -SACU1TAB PO; -TPRSR50 PO
[2017-09-23 15:07] LABS: BLOOD UREA NITROGEN 43 mg/dl (7-18); CREATININE 1.53 mg/dl (0.60-1.40)
== END | disposition home or self-care (01) ==
LOC: C.LAB1850 13:49
DX: R22.1 Localized swelling, mass and lump, neck (principal)

== ENCOUNTER → 2017-09-29 | Outpatient (CLI) | payer BC ==
[~2017-09-29] MED LIST changes: +OPTIRAY 320 IV PRN; +SACU1TAB PO
--- NOTE | 2017-09-29 11:55 | DIAGNOSTIC IMAGING REPORT ---
ADDENDUM ADDITIONAL IMPRESSION: 4. Heterogeneity of bone marrow. This is nonspecific. Correlate for a history of malignancy to exclude metastases. Electronically signed by: Hong Templeton M.D. 09/29/2017 1:03 PM Dictated Date/Time: 09/29/2017 1:02 PM ORIGINAL REPORT SOFT TISSUE NECK WITH CLINICAL HISTORY: 71 years-old Male presenting with R22.1 Lump in [id number] MALE WITH RIGHT SUBOCCIPITAL 1.5 centimeters, lipoma versus enlarged lymph node. TECHNIQUE: Multidetector CT of the neck was performed after the administration of intravenous contrast. IV contrast: 94 mL of Optiray 320. A dose lowering technique was used consistent with the principles of ALARA (as low as reasonably achievable). COMPARISON: None. CT DOSE (mGy.cm): The estimated cumulative dose is 598.24 mGycm. FINDINGS: Events Assistant topogram: Right subclavian implanted cardiac defibrillator. In the site of clinical concern in the right suboccipital and posterior reticular region, a few small soft tissue nodules are evident (for example series 3 images 80, 87, and 61). No fatty mass is evident. The right pinna is normal. Prominent right thyroid lobe nodule measuring 3.9 cm in maximal axial dimension replacing much of the normal right thyroid lobe. The left thyroid lobe is normal. This exerts mass effect on the adjacent right cervical vessels without resultant narrowing. Mild mass effect on the adjacent right lateral aspect of the trachea. No tracheal narrowing. No lymphadenopathy. No suspicious nodular enhancement. Salivary glands normal. No displacement of the paratracheal fat. Vessels patent. Atherosclerosis of the left carotid bulb without significant narrowing of the left internal carotid artery. Atherosclerosis of aortic arch. Minimal paraseptal emphysema at the lung apices. Multilevel degenerative changes of the cervical spine. Bone marrow is heterogeneous though no focal lesion is apparent. IMPRESSION: 1. Small soft tissue nodules in the right posterior reticular and right suboccipital region. These may represent small lymph nodes in the absence of a history of malignancy. These could be followed with ultrasound if clinically indicated. No pathologically enlarged lymph nodes. 2. No evidence of a lipoma. 3. Dominant 3.9 cm right thyroid lobe nodule. This was better characterized on prior ultrasound from 10/01/2016. Fine-needle aspiration of the dominant nodule is recommended at the time. If this has not occurred in the interim, FNA of the nodules again recommended. Electronically signed by: Hong Templeton M.D. 09/29/2017 11:53 AM Dictated Date/Time: 09/29/2017 11:46 AM
== END | disposition home or self-care (01) ==
LOC: C.CTS 11:13
DX: R22.1 Localized swelling, mass and lump, neck (principal); M79.9 Soft tissue disorder, unspecified; E04.1 Nontoxic single thyroid nodule; R93.7 Abnormal findings on diagnostic imaging of other parts of musculoskeletal system

== ENCOUNTER 2017-10-06 10:44 | Inpatient (IN) | payer BC, OTHER ==
[~2017-10-06] VITALS: Ht 177.8 cm; Wt 91.9 kg
[~2017-10-06 10:44] MED LIST changes: -OPTIRAY 320 IV PRN; -SACU1TAB PO
--- NOTE | 2017-10-06 10:52 | EMERGENCY ROOM VISIT NOTE ---
History Report prepared by Ninoska: Arabella Wheatley Under the Supervision of: Dr. Rangel Arguello D.O. First contact with patient: 10:45 Stated Complaint: RESPIRATORY History of Present Illness The patient is a 71 year old male who presents to the Emergency Room with complaints of worsening shortness of breath beginning a couple days ago. The patient states his shortness of breath worsens when he walks. He also reports a cough and runny nose but denies any chest pain or fever. 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 Per EMS, the lowest oxygen saturation was 84 percent. The patient has a history of CHF. Source of History: patient, EMS Onset: a couple days ago Position: other (generalized) Quality: other (shortness of breath) Timing: worsening Modifying Factors (Worsening): other (walking) Associated Symptoms: + cough, + SOB, No fevers, No chest pain Review of Systems See HPI for pertinent positives & negatives. A total of 10 systems reviewed and were otherwise negative. Past Medical & Surgical Medical Problems: (1) chf exac, hypoxia (2) Chronic congestive heart failure (3) Ischemic cardiomyopathy (4) Left bundle branch block (5) Pneumonia Family History No pertinent family history Social History Smoking Status: Former Smoker Marital Status: Housing Status: lives with family Occupation Status: retired Current/Historical Medications Scheduled Aspirin (Aspirin 81), 81 MG PO DAILY Carvedilol (Coreg), 1 TAB PO BID Cholecalciferol (Vitamin D), 5,000 UNIT PO DAILY Fish Oil ([place]wood-3), 1 CAP PO DAILY Furosemide (Lasix), 40 MG PO DAILY Glipizide (Glucotrol), 5 MG PO DAILY Potassium Chloride (Potassium Chloride ER), 20 MEQ PO DAILY Sacubitril-Valsartan (Entresto 24-26 mg), 1 TAB PO BID Scheduled PRN Metolazone (Zaroxolyn), 2.5 MG PO DAILY PRN for fluid retention Nitroglycerin (Nitroglycerin), 1 SPRAY UT DIRECTED PRN for Chest Pain Allergies Coded Allergies: BEE STING (Verified Allergy, Unknown, `, 10/06/17) Penicillins (Verified Allergy, Unknown, `, 10/06/17) Statins (Unverified Allergy, Unknown, myalgia, 10/06/17) Levofloxacin (Verified Adverse Reaction, Intermediate, nightmares, 10/06/17) pt refuses to take Physical Exam Vital Signs Date Time Temp Pulse Resp B/P (MAP) Pulse Ox O2 Delivery O2 Flow Rate FiO2 10/06/17 13:19 86 21 93 10/06/17 13:15 87 10/06/17 13:04 83 17 93 10/06/17 13:00 128/95 10/06/17 12:57 97 BiPAP 15.0 10/06/17 12:49 97 24 107/60 97 10/06/17 12:49 92 25 93 10/06/17 12:34 88 18 94 10/06/17 12:30 113/77 10/06/17 12:19 95 25 94 10/06/17 12:04 98 27 89 10/06/17 12:00 128/84 10/06/17 11:49 99 24 93 10/06/17 11:44 93 37 92 10/06/17 11:33 119/78 10/06/17 11:32 89 BiPAP 15.0 10/06/17 11:29 95 27 88 10/06/17 11:14 101 36 90 10/06/17 11:04 99 88 15.0 10/06/17 10:59 100 27 87 10/06/17 10:56 72 10/06/17 10:51 150/99 10/06/17 10:49 68 Room Air 10/06/17 10:49 106 40 150/99 68 Room Air Physical Exam GENERAL: Patient is awake, alert, and in moderate distress. Patient is very anxious appearing. EYES: The conjunctivae are clear. The pupils are round and reactive. EARS, NOSE, MOUTH AND THROAT: The nose is without any evidence of any deformity. Mucous membranes are moist tongue is midline NECK: The neck is nontender and supple. JVD noted. RESPIRATORY: Lung sounds diminished throughout, rales in all lung miller, significant tachypnea and conversational dyspnea . CARDIOVASCULAR: Tachycardic and regular no definite murmur noted to auscultation. GASTROINTESTINAL: The abdomen is soft. Bowel sounds are present in all quadrants. Abdomen is nontender MUSCULOSKELETAL/EXTREMITIES: There is no evidence of gross deformity full range of motion is noted in the hips and shoulders SKIN: No significant pedal edema noted, cool and diaphoretic to touch. There is no obvious evidence of any rash. There are no petechiae, pallor or cyanosis noted. NEUROLOGIC: Patient is awake alert and oriented x3 Medical Decision & Procedures ER Provider Diagnostic Interpretation: Radiology results as stated below per my review and radiologist interpretation: CHEST ONE VIEW PORTABLE FINDINGS: Stable moderate cardiomegaly. Permanent implantable cardiac pacemaker/fibrillator. Findings of pulmonary edematous change. Diaphragms are smooth. Costophrenic angles are sharp. IMPRESSION: Pulmonary edema. The above report was generated using voice recognition software. It may contain grammatical, syntax or spelling errors. Electronically signed by: Junito Leon M.D. Laboratory Results 10/06/17 10:22 Red Blood Count 5.23, Mean Corpuscular Volume 95.8, Mean Corpuscular Hemoglobin 32.9, Mean Corpuscular Hemoglobin Concent 34.3, Mean Platelet Volume 11.4, Neutrophils (%) (Auto) 80.2, Lymphocytes (%) (Auto) 11.5, Monocytes (%) (Auto) 6.8, Eosinophils (%) (Auto) 0.8, Basophils (%) (Auto) 0.4, Neutrophils # (Auto) 12.25, Lymphocytes # (Auto) 1.76, Monocytes # (Auto) 1.04, Eosinophils # (Auto) 0.12, Basophils # (Auto) 0.06 10/06/17 10:22 Test 10/06/17 10:22 10/06/17 11:38 10/06/17 11:42 10/06/17 12:15 White Blood Count 15.27 K/uL (4.8-10.8) Red Blood Count 5.23 M/uL (4.7-6.1) Hemoglobin 17.2 g/dL (14.0-18.0) Hematocrit 50.1 % (42-52) Mean Corpuscular Volume 95.8 fL (80-100) Mean Corpuscular Hemoglobin 32.9 pg (25-34) Mean Corpuscular Hemoglobin Concent 34.3 g/dl (32-36) Platelet Count 276 K/uL (130-400) Mean Platelet Volume 11.4 fL (7.4-10.4) Neutrophils (%) (Auto) 80.2 % Lymphocytes (%) (Auto) 11.5 % Monocytes (%) (Auto) 6.8 % Eosinophils (%) (Auto) 0.8 % Basophils (%) (Auto) 0.4 % Neutrophils # (Auto) 12.25 K/uL (1.4-6.5) Lymphocytes # (Auto) 1.76 K/uL (1.2-3.4) Monocytes # (Auto) 1.04 K/uL (0.11-0.59) Eosinophils # (Auto) 0.12 K/uL (0-0.5) Basophils # (Auto) 0.06 K/uL (0-0.2) RDW Standard Deviation 50.0 fL (36.4-46.3) RDW Coefficient of Variation 14.3 % (11.5-14.5) Immature Granulocyte % (Auto) 0.3 % Immature Granulocyte # (Auto) 0.04 K/uL (0.00-0.02) Erythrocyte Sedimentation Rate 24 mm/hr (0-14) Prothrombin Time 11.8 SECONDS (9.0-12.0) Prothromb Time International Ratio 1.1 (0.9-1.1) Activated Partial Thromboplast Time 26.0 SECONDS (21.0-31.0) Partial Thromboplastin Ratio 1.0 Anion Gap 7.0 mmol/L (3-11) Est Creatinine Clear Calc Drug Dose 51.4 ml/min Estimated GFR () 51.9 Estimated GFR (Non- 44.8 BUN/Creatinine Ratio 11.4 (10-20) Calcium Level 9.1 mg/dl (8.5-10.1) Phosphorus Level 2.4 mg/dl (2.5-4.9) Magnesium Level 2.3 mg/dl (1.8-2.4) Total Bilirubin 1.7 mg/dl (0.2-1) Aspartate Amino Transf (AST/SGOT) 24 U/L (15-37) Alanine Aminotransferase (ALT/SGPT) 22 U/L (12-78) Alkaline Phosphatase 66 U/L (45-117) Total Creatine Kinase 94 U/L (39-308) Creatine Kinase MB 1.5 ng/ml (0.5-3.6) Creatine Kinase MB Ratio 1.6 (0-3.0) Troponin I 0.036 ng/ml (0-0.045) C-Reactive Protein 5.48 mg/dl (0-0.29) Pro-B-Type Natriuretic Peptide 4134 pg/ml (0-900) Total Protein 9.1 gm/dl (6.4-8.2) Albumin 4.1 gm/dl (3.4-5.0) Globulin 5.0 gm/dl (2.5-4.0) Albumin/Globulin Ratio 0.8 (0.9-2) Lipase 79 U/L (73-393) Thyroid Stimulating Hormone (TSH) 2.410 uIu/ml (0.300-4.500) Venous Blood pH 7.37 (7.36-7.41) Venous Blood Partial Pressure CO2 50 mmHg (38.0-50.0) Venous Blood Partial Pressure O2 31 mmHg Venous Blood HCO3 28 mmol/L Venous Blood Oxygen Saturation < 60.0 % Venous Blood Base Excess 1.9 mEq/L Bedside Lactic Acid Venous 2.89 mmol/L (0.90-1.70) Urine Color YELLOW Urine Appearance CLEAR (CLEAR) Urine pH 5.0 (4.5-7.5) Urine Specific [place] 1.015 (1.000-1.030) Urine Protein NEG (NEG) Urine Glucose (UA) NEG (NEG) Urine Ketones NEG (NEG) Urine Occult Blood NEG (NEG) Urine Nitrite NEG (NEG) Urine Bilirubin NEG (NEG) Urine Urobilinogen NEG (NEG) Urine Leukocyte Esterase NEG (NEG) Urine WBC (Auto) 1-5 /hpf (0-5) Urine RBC (Auto) 0-4 /hpf (0-4) Urine Hyaline Casts (Auto) 5-10 /lpf (0-5) Urine Epithelial Cells (Auto) 0-5 /lpf (0-5) Urine Bacteria (Auto) NEG (NEG) Laboratory results per my review. Medications Administered Medications (Trade) Dose Ordered Sig/Joelle Route Start Time Stop Time Status Last Admin Dose Admin Furosemide (Lasix Inj) 40 mg NOW STAT IV 10/06/17 11:20 10/06/17 11:21 DC 10/06/17 11:30 40 MG Nitroglycerin (Nitroglycerin 2% Oint) 0.5 inch NOW ONCE EXT 10/06/17 11:30 10/06/17 11:31 DC 10/06/17 11:30 0.5 INCH ECG Indication: SOB/dyspnea Rate (beats per minute): 103 Rhythm: other (ventricular pacemaker) Findings: other (tetlin beats noted) Comparison ECG Date: 08/12/17 Change: Rate has increased otherwise it is the same. EKG interpreted by me. ED Course 1048: The patient was evaluated in room C4. A complete history and physical examination were performed. 1120: Ordered Lasix Inj 40 mg IV. 1130: Ordered Nitroglycerin 0.5 inch EXT. 1135: I discussed the patient's case with Dr. Cloon. He will come see the patient. 1223: I updated the patient on his test results his now at bedside. 1235: I discussed the patient's case with Dr. Garsia. The patient will be evaluated for further management. Medical Decision Differential diagnosis: Etiologies such as infections, reactive airway disease, pneumonia, pneumothorax , COPD, CHF, cardiac ischemia, pulmonary embolism, musculoskeletal, gastrointestinal, as well as others were entertained. Nursing notes reviewed. Additional history is obtained from the patient's significant other. Additional history is obtained from the prehospital personnel. The patient is a 71-year-old male who presented to the emergency department for shortness of breath. His history and physical exam appear to be consistent with acute onset of pulmonary edema. The patient was treated with nitroglycerin and Lasix. He was placed on BiPAP. He was reevaluated multiple times. On subsequent reevaluation he was feeling much better. 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 I discussed his case with the [facility]call [facility] hospitalist group. They've agreed to evaluate the patient in the emergency department for further management and disposition. Medication Reconcilliation Current Medication List: was personally reviewed by me Blood Pressure Screening Patient's blood pressure: Normal blood pressure Consults Time Called: 1130 Consulting Physician: Dr. Colon Returned Call: 1135 I discussed the patient's case with Dr. Colon. The patient will be evaluated for further management. Additional Consults: Time Called: 1230 Consulted Physician: Dr. Garsia Returned Call: 1235 Additional Comments: I discussed the patient's case with Dr. Garsia. The patient will be evaluated for further management. Impression Primary Impression: Pulmonary edema Additional Impressions: Hypoxia Respiratory distress Critical Care I have personally spent greater than 60 minutes of critical care time in the direct management of this patient. This includes bedside care, interpretation of diagnostic studies, and testing, discussion with consultants, patient, and family members, and other required patient management activities. This 60 minutes is in excess of all separately billable procedures. Scribe Attestation The scribe's documentation has been prepared under my direction and personally reviewed by me in its entirety. I confirm that the note above accurately reflects all work, treatment, procedures, and medical decision making performed by me. Departure Information Dispostion Being Evaluated By Hospitalist Referrals Leonor Day DO (PCP) Problem Qualifiers Primary Impression: Pulmonary edema Chronicity: acute Qualified Codes: J81.0 - Acute pulmonary edema
[2017-10-06 11:04] VITALS: PULSE 99; O2SAT 88
[2017-10-06] MEDS ORDERED: FUROSEMIDE 40 MG/4 ML VIAL IV STA (11:20)
--- NOTE | 2017-10-06 11:22 | DIAGNOSTIC IMAGING REPORT ---
CHEST ONE VIEW PORTABLE CLINICAL HISTORY: Sepsis dyspnea COMPARISON STUDY: 08/11/2017 FINDINGS: Stable moderate cardiomegaly. Permanent implantable cardiac pacemaker/fibrillator. Findings of pulmonary edematous change. Diaphragms are smooth. Costophrenic angles are sharp. IMPRESSION: Pulmonary edema. The above report was generated using voice recognition software. It may contain grammatical, syntax or spelling errors. Electronically signed by: Junito Leon M.D. 10/06/2017 11:21 AM Dictated Date/Time: 10/06/2017 11:20 AM
[2017-10-06] MEDS ORDERED: NITROGLYCERIN 2% OINTMENT 30GM TUBE EXT ONE (11:30)
[2017-10-06] MEDS ORDERED: SACU1TAB PO ×2 (11:39)
[2017-10-06 11:40] LABS: BASO % 0.4 %; BASO ABS # 0.06 K/uL (0-0.2); EOS % 0.8 %; EOS ABS # 0.12 K/uL (0-0.5); HEMATOCRIT 50.1 % (42-52); HEMOGLOBIN 17.2 g/dL (14.0-18.0); IG# 0.04 K/uL (0.00-0.02); LYMPH % 11.5 %; LYMPH ABS # 1.76 K/uL (1.2-3.4); MEAN CELL VOLUME 95.8 fL (80-100); MEAN CORPUSCULAR HEMOGLOBIN 32.9 pg (25-34); MEAN CORPUSCULAR HGB CONC 34.3 g/dl (32-36); MEAN PLATELET VOLUME 11.4 fL (7.4-10.4); MONO % 6.8 %; MONO ABS # 1.04 K/uL (0.11-0.59); NEUT % 80.2 %; NEUT ABS # 12.25 K/uL (1.4-6.5); PLATELET COUNT 276 K/uL (130-400); RED CELL DISTRIBUTION WIDTH CV 14.3 % (11.5-14.5); WHITE BLOOD COUNT 15.27 K/uL (4.8-10.8)
[2017-10-06 11:51] LABS: INR 1.1 (0.9-1.1)
[2017-10-06 12:01] LABS: ALBUMIN 4.1 gm/dl (3.4-5.0); CALCIUM 9.1 mg/dl (8.5-10.1); CREATININE 1.52 mg/dl (0.60-1.40); POTASSIUM 3.8 mmol/L (3.5-5.1)
[2017-10-06 12:04] LABS: CKMB 1.5 ng/ml (0.5-3.6); PHOSPHORUS 2.4 mg/dl (2.5-4.9); TOTAL PROTEIN 9.1 gm/dl (6.4-8.2)
[2017-10-06 12:57] VITALS: O2SAT 97; Ht 177.8 cm; Wt 91.9 kg
[2017-10-06] MEDS ORDERED: ALUMINUM/MAGNESIUM/SIMETH (MAALOX MAX) 30 ML UDC PO PRN (13:30)
[2017-10-06] MEDS ORDERED: ZOLPIDEM TARTRATE 5 MG TAB PO PRN (13:30)
[2017-10-06] MEDS ORDERED: POLYETHYLENE (MIRALAX) 17 GM PACK PO PRN (13:30)
[2017-10-06] MEDS ORDERED: MAGNESIUM HYDROXIDE SUSP 30 ML UDC PO PRN (13:30)
[2017-10-06] MEDS ORDERED: ACETAMINOPHEN 325 MG TAB PO PRN (13:30)
[2017-10-06] MEDS ORDERED: ONDANSETRON INJ 2 MG/ML 2 ML VIAL IV PRN (13:30)
[2017-10-06] MEDS ORDERED: METOLAZONE 2.5 MG TAB PO PRN (13:30)
[2017-10-06] MEDS ORDERED: GLUCOSE 10 TABS/TUBE PO PRN (14:15)
[2017-10-06] MEDS ORDERED: GLUCOSE 40% GEL 15 GM TUBE PO PRN (14:15)
[2017-10-06] MEDS ORDERED: GLUCAGON FOR INJ 1 MG VIAL SQ PRN (14:15)
[2017-10-06] MEDS ORDERED: DEXTROSE 50% 50 ML SYR IV PRN (14:15)
--- NOTE | 2017-10-06 14:27 | HISTORY & PHYSICAL EXAMINATION ---
DATE OF ADMISSION: 10/06/2017 This is level 3 inpatient admission, 35 minutes. CHIEF COMPLAINT: Worsening shortness of breath. HISTORY OF PRESENT ILLNESS: The patient is a 71-year-old white male with a significant past medical history of congestive heart failure, ischemic cardiomyopathy, pneumonia, coming to the hospital Emergency Department because of the above chief complaint. He reports has worsening shortness of breath, beginning couple days ago. Obvious dyspnea on exertion. Only able to walk a few steps. Significantly getting worse this morning. Reported recently has bronchitis with runny nose was treated by doxycycline several days ago, has completed antibiotic treatment. He reported has some cough and runny nose as well, but denied chest pain, palpitation, or lower extremity swelling. reported last night may have chill. Denied cough, sputum, shortness of breath. Denied nausea, vomiting, abdominal pain, diarrhea or constipation; denied dysuria, urgency or frequencies. Denied facial droop, slurry speeches or local weakness. Because of obvious worsening difficulty breathing, he was given 2 doses of nitroglycerin and then called EMS. When he arrived to the hospital, his oxygen was at 68% in room air, which indicated severe hypoxia. The BiPAP was started. When I interviewed with the patient, the patient and confirming the above information. He is feeling much better now. Denied chest pain, palpitations. Denied wheezing. Denied lower extremity swelling. REVIEW OF SYSTEMS: Please see the above. ALLERGIES: ALLERGY TO BEE STING, LEVAQUIN, PENICILLIN AND STATIN. PAST MEDICAL HISTORY: Includes: 1. CHF, systolic. 2. CAD with [place] in 1997. 3. Ischemic cardiomyopathy, EF was 20%. 4. SP biventricular ICD in 2011. 5. Hypertension. 6. Diabetic. PAST SURGICAL HISTORY: Like I mentioned in the above. FAMILY HISTORY: Include heart disease, hypertension, and dyslipidemia. SOCIAL HISTORY: Remote history of smoking. and lives with family, retired. MEDICATIONS: Taking at home which includes aspirin 81 mg p.o. daily, Coreg 6.25 mg p.o. b.i.d., vitamin D 5000 international units p.o. daily, fish oil 1 tab p.o. daily, glipizide 5 mg p.o. daily, metolazone 2.5 mg p.o. daily as needed for fluid retention, potassium chloride 20 mEq p.o. daily, Entresto 1 tab p.o. b.i.d. PHYSICAL EXAMINATION: VITAL SIGNS: Temperature is 37.1, pulse 106, respiration rate 40, blood pressure 159/99. Pulse ox was 58% in room air upon arrival. Currently, is 97% on BiPAP at 15 liters flow rate. GENERAL: The patient is a white male, pleasant, awake, alert and orientated, conversational, follows all commands. HEAD: Normocephalic. EYES: Pupils equal, round responds to light. EARS: Ear was normal. NOSE: Normal. NECK: Supple. On BiPAP machine. Thyroid no enlargement. LUNGS: Bilateral lungs decreased breathing sounds, mid lung has obvious crackles. HEART: Regular rhythm S1, S2, has no murmur, no gallop, no rub. ABDOMEN: Distended, obesity. Bilateral CVA was nontender. Bowel sound was positive. EXTREMITIES: Bilateral lower extremities, no swelling. Homans sign was negative. Calf was nontender. NEUROLOGICAL EVALUATION: Cranial nerve through XII was intact. There was no local deficits. SKIN: Has no rashes. Capillary refill was normal. LABORATORY STUDIES: WBC 15, hemoglobin 17, platelets 276; neutrophil was 80%. ABG shows pH 7.3, pCO2 50, PaO2 30, pulse ox was less than 60%. BMP: Sodium 133, potassium 3.8, BUN 17; creatinine 1.5, baseline is 1.2-1.5. Lactic acid 2.8, total bili 1.7. BNP was 4134. UA is pending. IMAGING STUDIES: Chest x-ray shows acute pulmonary edema. EKG was done in the Emergency Room which shows normal sinus rhythm. There were no ST-T phase changes. ASSESSMENT AND PLAN: A 71-year-old white male with the conditions below: 1. Acute on chronic systolic heart failure, with history of ischemic cardiomyopathy, ejection fraction was 20% status post automatic implantable cardioverter defibrillator. 2. Acute respiratory failure, need to be on BiPAP machine, likely secondary to pulmonary edema. 3. History of coronary artery disease status post myocardial infarction. 4. Cardiomyopathy - status post biventricular implantable cardioverter defibrillator placement. 5. Hypertension. 6. Type 2 diabetic. 7. Possible acute on chronic kidney failure with a mild worsening creatinine level at 1.52. 9. Need to rule out sepsis because Leukocytosis with mild chills. Has send a blood culture. Will check UA, deferred antibiotic for now. 10. History of coronary artery disease, hypertension, diabetic. Will continue current medications. Will check HbA1c, adding insulin sliding scales. will admit to the tele, Dr. Pizarro saw the patient already. Will continue tele monitor, iv Lasix 40m big, continue beta blockers, watch input and output, watch electrolytes and renal functions. Follow-up renal function, may continue BiPAP for now, possible can be off BiPAP when in the dinner, need to restart it if needed and after reassessment. Discussed with patient and family about the care plan and answered all the questions. The patient is full code. Gastrointestinal and deep venous thrombosis prophylaxis is covered. MTDD
[2017-10-06] MEDS: INSULIN ASPART 100 UNITS/ML 3 ML PEN SC SCH ×2 (16:00→20:16)
[2017-10-06 17:28] VITALS: BP 127/82; PULSE 87; TEMP 37.1; O2SAT 91
[2017-10-06] MEDS: FUROSEMIDE INJ 40 MG in SYRINGE 0 ML IV SCH (18:38)
[2017-10-06 19:23] VITALS: BP 127/82; PULSE 71; TEMP 37.2; O2SAT 90
[2017-10-06 20:00] VITALS: O2SAT 90
[2017-10-06] MEDS: HEPARIN SOD 5000 UNIT/0.5 ML CARP SQ SCH (20:15)
[2017-10-06] MEDS: SACUBITRIL-VALSARTAN 24-26 MG TAB PO SCH (20:19)
[2017-10-06] MEDS ORDERED: CARVEDILOL 6.25 MG TAB PO SCH (21:00)
[2017-10-06 22:49] VITALS: BP 110/74; PULSE 90; TEMP 37.3; O2SAT 90
[2017-10-07] VITALS (11 sets, daily range): BP systolic 96–116; BP diastolic 51–79; PULSE 67–85; TEMP 36.7–36.8; O2SAT 94–97
[2017-10-07 06:51] LABS: HEMOGLOBIN A1C 5.9 % (4.5-5.6)
[2017-10-07] MEDS: ASPIRIN 81 MG ECTAB PO SCH (07:16)
[2017-10-07] MEDS: SACUBITRIL-VALSARTAN 24-26 MG TAB PO SCH ×2 (07:17→20:35)
[2017-10-07] MEDS: OMEGA-3 (PURIFIED FISH OIL) 1 GM CAP PO SCH (07:18)
[2017-10-07] MEDS: CHOLECALCIFEROL 1000 INTER.UNIT TAB PO SCH (07:18)
[2017-10-07] MEDS: FUROSEMIDE INJ 40 MG in SYRINGE 0 ML IV SCH ×2 (07:27→17:07)
[2017-10-07 07:50] LABS: INR 1.2 (0.9-1.1)
[2017-10-07 08:10] LABS: CALCIUM 8.5 mg/dl (8.5-10.1); CREATININE 1.34 mg/dl (0.60-1.40); POTASSIUM 3.6 mmol/L (3.5-5.1)
[2017-10-07] MEDS: INSULIN ASPART 100 UNITS/ML 3 ML PEN SC SCH ×4 (08:45→20:35)
[2017-10-07] MEDS: HEPARIN SOD 5000 UNIT/0.5 ML CARP SQ SCH ×2 (08:46→20:37)
[2017-10-07] MEDS ORDERED: POTASSIUM CHLORIDE 20 MEQ TABCR PO SCH (09:00)
[2017-10-07] MEDS ORDERED: FUROSEMIDE INJ 40 MG in SYRINGE 0 ML IV SCH (09:00)
[2017-10-07] MEDS ORDERED: METOPROLOL SUCC 50MG EXT REL TAB PO ONE (10:00)
[2017-10-07] MEDS: POTASSIUM CHLORIDE 20 MEQ TABCR PO SCH ×2 (10:23→20:35)
--- NOTE | 2017-10-07 11:05 | Hospitalist Progress Note ---
Hospitalist Progress Note Date of Service Oct 07, 2017. (Stefany Onofre ., BRIANC) Subjective Pt evaluation today including: conversation w/ patient, physical exam, chart review, lab review, review of studies, conversation w/ data governance consultant, review of inpatient medication list Pain: None PO Intake: Tolerating PO diet Voiding: no voiding problems The patient reports feeling better. He denies any shortness of breath currently. He denies any oxygen use at home. He denies any other complaints. The patient denies fevers, chills, sweats, chest pain, palpitations, claudication, cough, wheezing, shortness of breath, nausea, vomiting, abdominal pain, dysuria, hematuria, urinary retention, paralysis, weakness, numbness and tingling. Additional Comments: See HPI for pertinent positives and negatives. All other systems reviewed and negative. (Stefany Onofre ., BRIANC) Objective Vital Signs Date Time Temp Pulse Resp B/P (MAP) Pulse Ox O2 Delivery O2 Flow Rate FiO2 10/07/17 08:01 96 Nasal Cannula 2.0 10/07/17 08:01 96 Room Air 2.0 10/07/17 07:28 36.7 81 20 114/79 (91) 96 Room Air 10/07/17 04:02 36.8 85 18 100/63 (75) 95 Nasal Cannula 2.0 10/07/17 04:00 Nasal Cannula 2.0 10/07/17 00:00 Nasal Cannula 2.0 10/06/17 22:49 37.3 90 18 110/74 (86) 90 Nasal Cannula 2.0 10/06/17 20:00 90 Nasal Cannula 2.0 10/06/17 19:23 37.2 71 18 127/82 (97) 90 Nasal Cannula 2.0 10/06/17 17:28 37.1 87 20 127/82 (97) 91 Nasal Cannula 2.0 10/06/17 16:44 85 20 91 10/06/17 16:31 130/91 10/06/17 16:14 86 23 92 10/06/17 16:00 102/77 10/06/17 15:44 85 23 91 10/06/17 15:39 79 30 92 10/06/17 15:30 116/66 10/06/17 15:09 89 23 89 10/06/17 15:01 134/81 10/06/17 14:39 81 21 95 10/06/17 14:30 118/75 10/06/17 14:09 83 23 94 10/06/17 14:04 80 10 97 10/06/17 14:00 114/70 10/06/17 13:49 81 22 93 10/06/17 13:34 84 30 95 10/06/17 13:30 107/77 10/06/17 13:19 86 21 93 10/06/17 13:15 87 10/06/17 13:04 83 17 93 10/06/17 13:00 128/95 10/06/17 12:57 97 BiPAP 15.0 10/06/17 12:49 97 24 107/60 97 10/06/17 12:49 92 25 93 10/06/17 12:34 88 18 94 10/06/17 12:30 113/77 10/06/17 12:19 95 25 94 10/06/17 12:04 98 27 89 10/06/17 12:00 128/84 10/06/17 11:49 99 24 93 10/06/17 11:44 93 37 92 10/06/17 11:33 119/78 10/06/17 11:32 89 BiPAP 15.0 10/06/17 11:29 95 27 88 10/06/17 11:14 101 36 90 10/06/17 11:04 99 88 15.0 10/06/17 10:59 100 27 87 10/06/17 10:56 72 10/06/17 10:51 150/99 10/06/17 10:49 68 Room Air 10/06/17 10:49 106 40 150/99 68 Room Air (Stefany Onofre, PA-C) Physical Exam Notes: General appearance: +Obese. Well-developed, well-nourished, no apparent distress Head: Normocephalic, atraumatic Eyes: Normal inspection, PERRL, EOMI ENT: Normal ENT inspection, hearing grossly normal, pharynx normal Neck: Supple, no JVD, trachea midline Respiratory/Chest: +Mildly decreased breath sounds. Lungs clear to auscultation, no respiratory distress Cardiovascular: Regular rate & rhythm, no gallop, no murmur Abdomen/GI: Normal bowel sounds, non-tender, soft Extremities/Musculoskeletal: Normal inspection, no calf tenderness, no pedal edema Neurological/Psych: Alert, normal mood/affect, oriented x 3 Skin: Normal color, warm/dry, no rash (Stefany Onofre, REKHA) Laboratory Results Last 24 Hours Test 10/06/17 11:38 10/06/17 11:42 10/06/17 12:15 10/06/17 17:54 Venous Blood pH 7.37 Venous Blood Partial Pressure CO2 50 mmHg Venous Blood Partial Pressure O2 31 mmHg Venous Blood HCO3 28 mmol/L Venous Blood Oxygen Saturation < 60.0 % Venous Blood Base Excess 1.9 mEq/L Bedside Lactic Acid Venous 2.89 mmol/L Urine Color YELLOW Urine Appearance CLEAR Urine pH 5.0 Urine Specific [place] 1.015 Urine Protein NEG Urine Glucose (UA) NEG Urine Ketones NEG Urine Occult Blood NEG Urine Nitrite NEG Urine Bilirubin NEG Urine Urobilinogen NEG Urine Leukocyte Esterase NEG Urine WBC (Auto) 1-5 /hpf Urine RBC (Auto) 0-4 /hpf Urine Hyaline Casts (Auto) 5-10 /lpf Urine Epithelial Cells (Auto) 0-5 /lpf Urine Bacteria (Auto) NEG Bedside Glucose 154 mg/dl Test 10/06/17 19:18 10/06/17 19:59 10/07/17 00:58 10/07/17 07:18 Troponin I 0.049 ng/ml 0.053 ng/ml 0.042 ng/ml Bedside Glucose 122 mg/dl Prothrombin Time 12.3 SECONDS Prothromb Time International Ratio 1.2 Sodium Level 135 mmol/L Potassium Level 3.6 mmol/L Chloride Level 100 mmol/L Carbon Dioxide Level 27 mmol/L Anion Gap 8.0 mmol/L Blood Urea Nitrogen 24 mg/dl Creatinine 1.34 mg/dl Est Creatinine Clear Calc Drug Dose 56.8 ml/min Estimated GFR () 60.5 Estimated GFR (Non- 52.2 BUN/Creatinine Ratio 17.8 Random Glucose 110 mg/dl Calcium Level 8.5 mg/dl Magnesium Level 2.3 mg/dl Pro-B-Type Natriuretic Peptide 3860 pg/ml Triglycerides Level 109 mg/dl Cholesterol Level 93 mg/dl HDL Cholesterol 45 mg/dl LDL Cholesterol, Calculated 26 mg/dl VLDL Cholesterol, Calculated 22 mg/dl Cholesterol/HDL Ratio 2.1 Test 10/07/17 07:41 10/07/17 10:23 Bedside Glucose 121 mg/dl (Stefany Onofre ., REKHA) Assessment and Plan 71 y/o male with a history of chronic systolic CHF, ischemic cardiomyopathy, CAD with h/o GA, HTN, DM II, and CKD stage III who presents with acute shortness of breath and acute respiratory failure. Acute on chronic systolic heart failure, acute respiratory failure--improving -Admit to telemetry. No acute events overnight. Pt paced rhythm, HR 70s-80s. Did have 4-7 beat runs overnight. -Daily weights, strict I's & O's -Lasix 40 mg IV q12h -Fluid restriction 1500 cc -UO 750 cc, net balance -510 cc -Repeat echo pending -Cardiology consulted, appreciate recs: Coreg changed to metoprolol succinate. -D/C Coreg, start Toprol XL 50 mg PO qd -Continue Entresto 24/26 mg PO BID -Off BiPAP. O2 by protocol. Currently on 1L, wean as tolerated. Ambulate in zambrano -Increase KCl to 20 mEQ PO BID. ROGELIO on CKD stage III--improving. Baseline creatinine around 1.1-1.3 -Creatinine 1.34 on 10/07, down from 1.52 CAD, h/o GA, HTN--stable -Continue ASA, metoprolol as above DM II--HgbA1c 5.9 on 10/06 -Hold glipizide -Insulin sliding scale -Check BSGs q ac and qhs DVT prophylaxis -Heparin 5000 units SC q12h Code Status -Level I, FULL RESUSCITATION STATUS (Stefany Onofre ., REKHA) Reviewed: Pt Seen/Exam by Me (Laly Guido MD) History Physician Heating And Refrigeration Inspector Supervision Note: I interviewed and examined the patient. Discussed with ELDA Onofre and agree with findings and plan as documented in the note. Any exceptions or clarifications are listed here: Pt feeling much better with his breathing. No CP at all. Review of outpt record and d/w Cardiology Dr. Pizarro as well. He is supposed to start Xarelto but is on hold until after his upcoming FNA of a rt posterior neck mass. Did feel some whole body flushing this AM. Has had side effects off and on with Toprol and switched to Coreg whjich also caused SEs--> switched back to Toprol this AM. Pt reports he stopped lisinopril and Coreg 3 days ago for a washout period of ACEI prior to starting Entresto. He did not want to start the Toprol yet. Pacer interrogation 2 weeks ago revealed persistent A-fib since May 2017 Vitals reviewed NAD, AAOx3 Neck: palpable right occipital nodule about 2 cm,nontender; Right thyroid nodule palpable and nontender RRR no mgr mild bibasilar crackles, otherwise clear Abd +BS soft NT ND Ext no edema, 2+ DP pulses 71 yo male with a h/o chronic systolic CHF, CAD, PPM/BiV AICD, DMII, Thyroid nodule, HTN, HL, CKDIII, here with acute systolic CHF and acute hypoxemic resp failure. COuld be secondary to recent holding of ACEI and Beta beatriz for 2-3 days. Dry weight stable from previous -much improved after BiPAP and IV lasix -continue IV lasix, KCl replacement -follow I/Os, daily weights, Changed to a Low Na+ diet (was on AHA), continue fluid restriction 1500 mL -start Xarelto for AFib next week after FNA -continue Entresto, Toprol as above changes made -could possibly dc to home tomorrow -f/u as outpt for Thyroid nodule--> TSH normal but ENT notes mention not a good surgical candidate and to follow with US Documented By: Laly Guido (Laly Guido MD)
[2017-10-07 11:28] LABS: HEMATOCRIT 42.4 % (42-52); HEMOGLOBIN 14.5 g/dL (14.0-18.0); MEAN CELL VOLUME 94.6 fL (80-100); MEAN CORPUSCULAR HEMOGLOBIN 32.4 pg (25-34); MEAN CORPUSCULAR HGB CONC 34.2 g/dl (32-36); MEAN PLATELET VOLUME 11.2 fL (7.4-10.4); PLATELET COUNT 204 K/uL (130-400); RED CELL DISTRIBUTION WIDTH CV 14.2 % (11.5-14.5); RED CELL DISTRIBUTION WIDTH SD 48.5 fL (36.4-46.3); WHITE BLOOD COUNT 9.73 K/uL (4.8-10.8)
--- NOTE | 2017-10-07 12:35 | ECHOCARDIOGRAM REPORT ---
*NOTICE TO RECEIVING CONSTITUTION PARTY AGENCY This information is strictly Confidential and protected under [place] law. [place] law prohibits you from making any further disclosure of this information unless further disclosure is expressly permitted by the written consent of the person to whom it pertains or is authorized by law. A general authorization for the release of medical or other information is not sufficient for this purpose. Hospital accepts no responsibility if the information is made available to any other person, INCLUDING THE PATIENT. Interpretation Summary * Name: REJI BANSAL Study Date: 10/06/2017 03:15 PM BP: 116/66 mmHg * Patient Location: [facility] HR: 86 * : 1945 (M/d/yyyy) Gender: Male Height: 70 in * Age: 71 yrs Ethnicity: [place] Weight: 220 lb * Ordering Physician: Mark Srinivasan * Referring Physician: Self, Referred * Performed By: Nuvia Bai RCS * * Reason For Study: CHF * BSA: 2.2 m2 * -- Conclusions -- * Left ventricular systolic function is severely reduced. * Moderate left ventricular dilatation. 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 * Ejection Fraction = 20-25%. * There is moderate mitral regurgitation. Procedure Details * A complete two-dimensional transthoracic echocardiogram was performed (2D, M-mode, Doppler and color flow Doppler). * The study was technically difficult. * A contrast injection of Definity was performed to improve assessment of LV function. * Contrast was injected into an intravenous site in the left arm. * One vial of Definity ultrasound contrast was diluted in normal saline to a total volume of 10 ml. A total of '3' ml of solution was administered during imaging. * Lot # [id number] of Definity utilized for procedure. * Expiration date 1 OCT 19. * The attending nurse who injected the contrast agent was JESSEE JOSUE RN. Left Ventricle * The left ventricle is moderately dilated. * There is normal left ventricular wall thickness. * Left ventricular systolic function is severely reduced. * Ejection Fraction = 20-25%. 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 Right Ventricle * The right ventricle is not well visualized. Atria * The left atrium is moderately dilated. * Right atrium not well visualized. * There is no evidence of atrial septal defect, but resolution does not allow assessment for a patent foramen ovale. Mitral Valve * The mitral valve is normal. * There is no mitral valve stenosis. * There is moderate mitral regurgitation. Tricuspid Valve * The tricuspid valve is not well visualized, but is grossly normal. * There is no tricuspid stenosis. * Significant tricuspid regurgitation is absent. Aortic Valve * The aortic valve is not well visualized. * The aortic valve opens well. * Aortic valve sclerosis moderate, without significant aortic valvular stenosis. * There is no significant aortic regurgitation. Pulmonic Valve * The pulmonary valve is inadequately visualized, but the Doppler data is adequate for interpretation. Great Vessels * The aortic root is normal size. * The pulmonary is not well visualized. Pericardium/Pleural * There is no pericardial effusion. Great Vessels * IVC not well visualized. Left Ventricular Diastolic Function * Diastolic dysfunction suggested. MMode 2D Measurements and Calculations IVSd 0.99 cm IVSs 1.5 cm LVIDd 6.8 cm LVIDs 5.9 cm LVPWd 1.3 cm LVPWs 1.1 cm IVS/LVPW 0.79 FS 12.2 % EDV(Teich) 236.5 ml ESV(Teich) 176.0 ml EF(Teich) 25.5 % EDV(cubed) 309.6 ml ESV(cubed) 209.8 ml EF(cubed) 32.2 % % IVS thick 47.3 % % LVPW thick -13.24 % LV mass(C)d 353.3 grams LV mass(C)dI 162.5 grams/m\S\2 LV mass(C)s 336.6 grams LV mass(C)sI 154.9 grams/m\S\2 SV(Teich) 60.4 ml SI(Teich) 27.8 ml/m\S\2 SV(cubed) 99.8 ml SI(cubed) 45.9 ml/m\S\2 Ao root diam 3.5 cm Ao root area 9.5 cm\S\2 LA dimension 4.8 cm LA/Ao 1.4 LVOT diam 2.0 cm LVOT area 3.2 cm\S\2 Doppler Measurements and Calculations MV E max niyah 115.4 cm/sec MV P1/2t max niyah 97.5 cm/sec MV P1/2t 114.2 msec MVA(P1/2t) 1.9 cm\S\2 MV dec slope 250.0 cm/sec\S\2 MV dec time 0.21 sec Ao V2 max 118.1 cm/sec Ao max PG 5.6 mmHg Ao max PG (full) 3.2 mmHg SHANKAR(V,A) 2.0 cm\S\2 SHANKAR(V,D) 2.0 cm\S\2 LV V1 max PG 2.3 mmHg LV V1 max 76.6 cm/sec MR max niyah 428.2 cm/sec MR max PG 73.4 mmHg PA V2 max 81.1 cm/sec PA max PG 2.6 mmHg
--- NOTE | 2017-10-07 12:42 | CARDIOLOGY CONSULTATION ---
DATE OF CONSULTATION: 10/07/2017 PERTINENT HISTORY: Mr. Das is a 71-year-old white male well known to me from the outpatient setting. He presented yesterday with acute pulmonary edema. He was seen in the Emergency Room by myself. Hospitalization had been recommended for aggressive diuresis. The patient's cardiac history began back in May of 1998 when he suffered an anteroapical myocardial infarction. This resulted in ischemic cardiomyopathy and chronic systolic congestive heart failure. The patient did have a biventricular ICD placed in August 2011. Unfortunately, there has been little improvement in his ejection fraction. The patient does follow up daily weights at home. His "dry" weight is 209 pounds. He typically takes Lasix 40 mg daily and has metolazone 2.5 mg when necessary for weight gain. Of note, on the morning of presentation, the patient weighed 209 pounds when at home. We have been making some adjustments as an outpatient with his medical regimen. He was taken off metoprolol succinate and placed on carvedilol back in May. Unfortunately, he has had significant side effects with carvedilol and we have opted to change him back to metoprolol succinate. The patient was also being transitioned from lisinopril to Entresto. Of note, he had been off his lisinopril for 2 days leading up to this presentation. The patient was diuresed aggressively in the Emergency Room and he had no longer required BiPAP for respiratory support. He has not had recent angina pectoris, syncope, presyncope, PND, orthopnea, or palpitations. He was diagnosed with persistent atrial fibrillation back in May of 2017. He is tolerating anticoagulation without difficulty. Currently, the patient is resting comfortably in bed without complaints. PAST MEDICAL HISTORY: 1. Coronary artery disease. 2. Anteroapical DC - May 1998. 3. Ischemic cardiomyopathy -- 25%. 4. Biventricular ICD - August 2011. 5. Chronic systolic congestive heart failure. 6. Persistent atrial fibrillation - May 2017. 7. Hypercholesterolemia. 8. Diabetes mellitus. 9. Left bundle branch block. 10. Hypothyroidism. 11. Thyroid nodule -- workup in progress. 12. Chronic renal insufficiency. 13. Right foot fracture. MEDICATIONS: 1. Metoprolol succinate 50 mg daily. 2. Entresto 24-26 one tablet b.i.d. 3. Lasix 40 mg IV b.i.d. 4. Potassium 20 mEq b.i.d. 5. Aspirin 81 mg per day. 6. Fish oil 1 gram daily. 7. Heparin 5000 units subQ b.i.d. 8. Glucotrol 5 mg daily. 9. Vitamin D 5000 units daily. ALLERGIES: 1. PENICILLIN. 2. LEVOFLOXACIN. 3. BEE STINGS. SOCIAL HISTORY: The patient is and lives with his . Does not use tobacco. Alcohol use is social. FAMILY HISTORY: Noncontributory. REVIEW OF SYSTEMS: Ten point review of systems is negative except for that described above. PHYSICAL EXAMINATION: GENERAL: This is a well-developed, well-nourished white male in no acute distress. VITAL SIGNS: Blood pressure is 114/79 with a regular pulse of 80. Respiratory rate is 20. The patient is afebrile at 36.7 degrees Celsius. Saturation is 96% on 2 L nasal cannula. NECK: Supple with full carotid upstrokes. There are no carotid bruits. Jugular venous pressure is flat at 90 degrees. There is no thyromegaly. CARDIOVASCULAR: Reveals a regular with a normal S1 and S2. Heart sounds are distant. No murmurs or S3. LUNGS: Clear without rales, rhonchi, or wheezes. ABDOMEN: Obese without bruits. EXTREMITIES: Reveal intact radial artery pulses bilaterally. There is no peripheral edema. DATA: CBC notes a hemoglobin of 17.2, hematocrit 50.1, white count 15.27, and glucose 276,000. Electrolytes note a sodium of 135, potassium 3.6, chloride 100, bicarbonate 27, BUN 24, creatinine 1.34, and glucose 110. Initial troponin was 0.036 with follow up value that was 0.049, 0.053, and 0.042. TSH is normal at 2.41. LDL cholesterol is 26 with an HDL of 45. EKG notes atrial fibrillation with ventricular pacing and either aberrance beats or PVCs. Chest x-ray notes congestive changes. IMPRESSION: Mr. Das was admitted with acute pulmonary edema. He has responded appropriately to intravenous diuretics. As above, he was being transitioned in the outpatient setting from Lisinopril to Entresto. We have also changed him from his carvedilol back to metoprolol succinate due to side effects. PLAN: 1. Restart metoprolol succinate 50 mg daily. 2. Discontinue carvedilol. 3. Agree with starting low dose Entresto. 4. Agree with intravenous diuretics. 5. Further recommendations depending on his clinical course.
[2017-10-08 02:40] VITALS: BP 90/61; PULSE 63; TEMP 36.3; O2SAT 97
[2017-10-08 07:19] LABS: INR 1.1 (0.9-1.1)
[2017-10-08 07:47] LABS: CALCIUM 8.7 mg/dl (8.5-10.1); CREATININE 1.21 mg/dl (0.60-1.40); POTASSIUM 3.5 mmol/L (3.5-5.1)
[2017-10-08 07:56] VITALS: BP 103/68; PULSE 55; TEMP 36.4; O2SAT 94
[2017-10-08] MEDS: CHOLECALCIFEROL 1000 INTER.UNIT TAB PO SCH (08:24)
[2017-10-08] MEDS: POTASSIUM CHLORIDE 20 MEQ TABCR PO SCH (08:25)
[2017-10-08] MEDS: SACUBITRIL-VALSARTAN 24-26 MG TAB PO SCH (08:26)
[2017-10-08] MEDS: ASPIRIN 81 MG ECTAB PO SCH (08:27)
[2017-10-08] MEDS: OMEGA-3 (PURIFIED FISH OIL) 1 GM CAP PO SCH (08:27)
[2017-10-08] MEDS: HEPARIN SOD 5000 UNIT/0.5 ML CARP SQ SCH (08:28)
[2017-10-08] MEDS: FUROSEMIDE INJ 40 MG in SYRINGE 0 ML IV SCH (08:28)
[2017-10-08] MEDS: INSULIN ASPART 100 UNITS/ML 3 ML PEN SC SCH ×2 (08:30→12:18)
[2017-10-08] MEDS ORDERED: METOPROLOL SUCC 50MG EXT REL TAB PO SCH (09:00)
[2017-10-08] MEDS ORDERED: POTASSIUM CHLORIDE 20 MEQ TABCR PO SCH (09:00)
--- NOTE | 2017-10-08 09:43 | CARDIOLOGY PROGRESS NOTE ---
DATE: 10/08/2017 SUBJECTIVE: Mr. Das is resting comfortably in bed without complaints of chest pain or dyspnea. He was able to ambulate yesterday without difficulty. Claims to feel as well as he has in many years. OBJECTIVE: VITAL SIGNS: Blood pressure is 103/68 with a regular pulse of 55. Respiratory rate is 18. The patient is afebrile at 36.4 degrees Celsius. Saturation is 94% on room air. Weight is 91.9 kg, down 8.3 kg from admission. NECK: Supple with full carotid upstrokes. No carotid bruits. Jugular venous pressure is flat at 90 degrees. There is no thyromegaly. CARDIOVASCULAR: Reveals a regular rhythm with distant heart sounds. No obvious murmurs. LUNGS: Clear without rales, rhonchi, or wheezes. ABDOMEN: Obese without bruits. EXTREMITIES: Reveal intact radial artery pulses bilaterally. There is no peripheral edema. DATA: CBC notes a hemoglobin of 14.5, hematocrit 42.4, white count 9.73, glucose 204. Electrolytes note a sodium of 137, potassium 3.5, chloride 102, bicarbonate 25, BUN 29, creatinine 1.21, glucose 112. diesel retrofit installer notes appropriate ventricular pacing. IMPRESSION AND PLAN: 1. Acute on chronic systolic congestive heart failure -- patient has diuresed a total of 8.3 kilograms since admission. We have discussed a "dry" weight when at home. He is tolerating metoprolol succinate and Entresto without difficulty. We will see him in followup next week in the office. 2. Coronary artery disease -- status post anteroapical SC in May 1998. 3. Ischemic cardiomyopathy -- ejection fraction 20-25% with a large anterior wall motion abnormality. 4. Status post biventricular ICD -- August 2011. 5. Persistent atrial fibrillation -- recognized in May 2017. Xarelto currently on hold as he has a thyroid biopsy scheduled next week. 6. Left bundle branch block. 7. Hypercholesterolemia. 8. Diabetes mellitus. 9. Chronic renal insufficiency.
[2017-10-08] MEDS ORDERED: TPRSR50 PO ×2 (10:28)
--- NOTE | 2017-10-08 10:36 | Discharge Instructions ---
Discharge Instructions Date of Service Oct 08, 2017. Admission Reason for Admission: Chf Exacerbation, Hypoxia Discharge Discharge Diagnosis / Problem: Acute on chronic systolic congestive heart failure, hypoxia Discharge Goals Goal(s): Decrease discomfort, Improve function, Diagnostic testing, Therapeutic intervention Activity Recommendations Activity Limitations: resume your previous activity (as tolerated) . Instructions / Follow-Up Instructions / Follow-Up You were admitted to the hospital after presenting with worsening shortness of breath and hypoxia. You were initially treated with a BiPAP mask and IV Lasix. You were found to be in an acute exacerbation of your chronic systolic congestive heart failure, despite no obvious weight gain. This episode is thought to be due to missing a few days of your beta beatriz and Entresto. You were evaluated by cardiology while inpatient. Due to developing symptoms on carvedilol, your beta beatriz was changed back to metoprolol succinate. As you are no longer hypoxic and breathing better, you are medically stable for discharge. Medications: *STOP carvedilol. *Take metoprolol succinate ER 50 mg daily instead. *Continue your other home medications as prescribed. Recommendations: *You may take a second Lasix dose if you experience a weight gain of 2-3 pounds in 1 day. If you take extra Lasix, please take an extra potassium supplement as well. Follow up: *You will be scheduled to follow up with your primary care provider and cardiology next week. Please seek medical attention if you experience fevers, chills, sweats, dizziness/lightheadedness, loss of consciousness, chest pain, shortness of breath, nausea, vomiting, numbness or tingling. Call your Primary Care doctor if any of the following symptoms or problems start or get worse: * Shortness of breath or difficulty breathing * Wake up at night short of breath * Chest pain * Cough * Swelling of your hands, feet, or legs * More fatigued or tired with your normal activity * Palpitations - sudden fast heart beats WEIGHT * Weigh yourself every morning after using the bathroom. * Use the same scale. * Wear the same amount of clothing. * Write your weight down on a chart. * Call your Primary Care doctor if you gain more than 2-3 pounds in 1-2 days. MEDICATIONS * Use this discharge instruction sheet for medication instructions. * Take your medications at the time your doctor ordered. * Do not skip a dose of your medicines. * If you miss a dose of medicine, take it as soon as possible, but DO NOT DOUBLE A DOSE EXCEPT INSTRUCTED ABOVE. * Read your medicine information when you get home. * Know all of the side effects of your medicine. If in doubt, ask your pharmacist * Call your Primary Care doctor's office if you have any side effects. * Be sure all of your doctors know what medicine and herbs you take (including cold, flu, and herbal medicine). Take the following with you to your follow-up doctor appointments: * Weight Chart * Medication List * List of questions Do not drink excessive alcohol, beer or wine. Current Hospital Diet Patient's current hospital diet: Diabetes Type 2 Diet, Low Sodium Diet (2gm Na) Discharge Diet Recommended Diet: Low Sodium Diet (2gm Na), Diabetes Type 2 Diet Pending Studies Studies pending at discharge: no Laboratory Results Hemoglobin A1c Test 10/06/17 10:22 Range/Units Estimated Average Glucose 123 mg/dl Hemoglobin A1c 5.9 H 4.5-5.6 % Lipid Panel Test 10/07/17 07:18 Range/Units Triglycerides Level 109 0-150 mg/dl Cholesterol Level 93 0-200 mg/dl HDL Cholesterol 45 mg/dl Cholesterol/HDL Ratio 2.1 LDL Cholesterol, Calculated 26 mg/dl Medical Emergencies . Who to Call and When: Call 911 or go to the Emergency Room if: * If at any time you feel your situation is an emergency * You have tightness or pain in your chest that does not go away with rest or Nitroglycerin * You are very short of breath even with rest . Non-Emergent Contact Non-Emergency issues call your: Primary Care Provider, Chisel Mortiser Operator . Past History Medical & Surgical History: (1) Acute on chronic systolic congestive heart failure (2) Hypoxia . "Provider Documentation" section prepared by Stefany Onofre. . VTE Core Measure Inpt VTE Proph given/why not?: Unfractionated heparin SQ
--- NOTE | 2017-10-08 10:49 | Discharge Summary ---
Discharge Summary Date of Service Oct 08, 2017. 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 Ischemic cardiomyopathy CAD with h/o IA HTN DM II CKD stage III Moderate Mitral regurgitation Neck nodule Thyroid nodule-benign on FNA 2016 Non-sustained ventricular tachycardia ROGELIO on CKD stage III Pacemaker in situ/BiV AICD Demand ischemia/NSTEMI type II Immunizations: Have You Had Influenza Vaccine: No Influenza Vaccine Date: Jun 01, 2009 History of Tetanus Vaccine?: Unknown History of Pneumococcal: Yes Pneumococcal Date: Jun 16, 2011 History of Hepatitis B Vaccine: Unknown Procedures: Echocardiogram: Interpretation Summary * Name: REJI BANSAL Study Date: 10/06/2017 03:15 PM BP: 116/66 mmHg * Patient Location: [facility] HR: 86 * : 1945 (M/d/yyyy) Gender: Male Height: 70 in * Age: 71 yrs Ethnicity: [place] Weight: 220 lb * Ordering Physician: Mark Srinivasan * Referring Physician: Self, Referred * Performed By: Nuvia Bai RCS * * Reason For Study: CHF * BSA: 2.2 m2 * -- Conclusions -- * Left ventricular systolic function is severely reduced. * Moderate left ventricular dilatation. 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 * Ejection Fraction = 20-25%. * There is moderate mitral regurgitation. Procedure Details * A complete two-dimensional transthoracic echocardiogram was performed (2D, M- mode, Doppler and color flow Doppler). * The study was technically difficult. * A contrast injection of Definity was performed to improve assessment of LV function. * Contrast was injected into an intravenous site in the left arm. * One vial of Definity ultrasound contrast was diluted in normal saline to a total volume of 10 ml. A total of '3' ml of solution was administered during imaging. * Lot # [id number] of Definity utilized for procedure. * Expiration date 1 OCT 19. * The attending nurse who injected the contrast agent was JESSEE JOSUE RN. Left Ventricle * The left ventricle is moderately dilated. * There is normal left ventricular wall thickness. * Left ventricular systolic function is severely reduced. * Ejection Fraction = 20-25%. 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 Right Ventricle * The right ventricle is not well visualized. Atria * The left atrium is moderately dilated. * Right atrium not well visualized. * There is no evidence of atrial septal defect, but resolution does not allow assessment for a patent foramen ovale. Mitral Valve * The mitral valve is normal. * There is no mitral valve stenosis. * There is moderate mitral regurgitation. Tricuspid Valve * The tricuspid valve is not well visualized, but is grossly normal. * There is no tricuspid stenosis. * Significant tricuspid regurgitation is absent. Aortic Valve * The aortic valve is not well visualized. * The aortic valve opens well. * Aortic valve sclerosis moderate, without significant aortic valvular stenosis. * There is no significant aortic regurgitation. Pulmonic Valve * The pulmonary valve is inadequately visualized, but the Doppler data is adequate for interpretation. Great Vessels * The aortic root is normal size. * The pulmonary is not well visualized. Pericardium/Pleural * There is no pericardial effusion. Great Vessels * IVC not well visualized. Left Ventricular Diastolic Function * Diastolic dysfunction suggested. Consultations: Cardiology Medication Reconciliation New Medications: Rivaroxaban (Xarelto) 20 Mg Tab 20 MG PO DAILY, #30 TAB TO START AFTER YOUR BIOPSY NEXT WEEK Metoprolol Succinate (Metoprolol Succinate ER) 50 Mg Tabcr 50 MG PO QAM for 30 Days, #30 TABS Continued Medications: Aspirin (Aspirin 81) 81 Mg Tab 81 MG PO DAILY Cholecalciferol (Vitamin D) 5,000 Unit Tab 5000 UNIT PO DAILY Fish Oil ([place]-3) 1 Ea Cap 1 CAP PO DAILY, 0 Refills Furosemide (Lasix) 40 Mg Tab 40 MG PO DAILY, 0 Refills may take 2 tablets twice a day if needed Glipizide (Glucotrol) 5 Mg Tab 5 MG PO DAILY, TAB Metolazone (Zaroxolyn) 2.5 Mg Tab 2.5 MG PO DAILY PRN for fluid retention Nitroglycerin (Nitroglycerin) 0.4 Mg/Hr Dis 1 SPRAY UT DIRECTED PRN for Chest Pain Potassium Chloride (Potassium Chloride ER) 20 Meq Tabcr 20 MEQ PO DAILY may take extra dose if taking extra lasix Sacubitril-Valsartan (Entresto 24-26 mg) 1 Tab Tab 1 TAB PO BID Discontinued Medications: Carvedilol (Coreg) 6.25 Mg Tab 1 TAB PO BID for 90 Days, #180 TAB 1 Refill Discharge Exam The patient reports feeling well. He states he ambulated in the hallway on room air without any shortness of breath or SAUNDERS, and maintained O2 sats in high 90s. He denied any dizziness/lightheadedness. He denies any complaints and is eager to be discharged. The patient denies fevers, chills, sweats, chest pain, palpitations, claudication, cough, wheezing, shortness of breath, nausea, vomiting, abdominal pain, dysuria, hematuria, urinary retention, paralysis, weakness, numbness and tingling. Constitutional: No fever, No chills, No sweats Eyes: No worsening of vision, No eye pain, No diplopia ENT: No hearing loss, No nasal symptoms, No trouble swallowing Respiratory: No cough, No wheezing, No shortness of breath Cardiovascular: No chest pain, No claudication, No palpitations Abdomen: No pain, No nausea, No vomiting Musculoskeletal: No joint pain, No muscle pain, No swelling Genitourinary - Male: No dysuria, No urinary retention, No hematuria Neurologic: No paralysis, No weakness, No numbness/tingling Integumentary: No rash, No itch, No color change General appearance: +Obese. Well-developed, well-nourished, no apparent distress Head: Normocephalic, atraumatic Eyes: Normal inspection, PERRL, EOMI ENT: Normal ENT inspection, hearing grossly normal, pharynx normal Neck: Supple, no JVD, trachea midline Respiratory/Chest: Lungs clear to auscultation, normal breath sounds, no respiratory distress Cardiovascular: Regular rate & rhythm, no gallop, no murmur Abdomen/GI: Normal bowel sounds, non-tender, soft Extremities/Musculoskeletal: Normal inspection, no calf tenderness, no pedal edema Neurological/Psych: Alert, normal mood/affect, oriented x 3 Skin: Normal color, warm/dry, no rash Hospital Course 71 y/o male with a history of chronic systolic CHF, ischemic cardiomyopathy, CAD with h/o IA, HTN, DM II, and CKD stage III who presents with acute shortness of breath and acute respiratory failure. Acute on chronic systolic heart failure, acute respiratory failure--resolving -Admit to telemetry. No acute events overnight. Pt mostly in paced rhythm, at times a-fib, with HR 60s-70s. -Daily weights, strict I's & O's -Lasix 40 mg IV q12h -Fluid restriction 1500 cc -UO 1950 cc, net balance -930 cc on 10/07 -Repeat echo unchanged, shows EF 20-25%. Moderate LV dilation. Large akinetic segment including anterior wall, anteroseptum, apex, and distal inferior wall. Moderate mitral regurgitation. Diastolic dysfunction suggested. -Cardiology consulted, appreciate recs: Spoke with Dr. Pizarro, agrees with discharge. Continue metoprolol succinate and Entresto at discharge and will have cardio f/u in 1 week. -D/C Coreg, start Toprol XL 50 mg PO qd -Continue Entresto 24/26 mg PO BID -Off BiPAP. O2 by protocol. Ambulating in hallway on room air w/o dyspnea -Increase KCl to 20 mEQ PO BID. ROGELIO on CKD stage III--resolved. Baseline creatinine around 1.1-1.3 -Creatinine up to 1.52, down to 1.21 on discharge Elevated troponin--resolving, secondary to demand ischemia -Peaked at 0.053, trending down. Asymptomatic CAD, h/o IA, HTN--stable -Continue ASA, metoprolol as above Persistent a-fib--noted on pacemaker interrogation since May 2017 per cardiology -Scheduled to start Xarelto following FNA next week Thyroid nodule -FNA scheduled next week, not surgical candidate per ENT DM II--HgbA1c 5.9 on 10/06 -Hold glipizide, resume on discharge -Insulin sliding scale -Check BSGs q ac and qhs DVT prophylaxis -Heparin 5000 units SC q12h Code Status -Level I, FULL RESUSCITATION STATUS Total Time Spent: Greater than 30 minutes This includes examination of the patient, discharge planning, medication reconciliation, and communication with other providers. Discharge Instructions Please refer to the electronic Patient Visit Report (Discharge Instructions) for additional information. Follow-Up PCP, cardiology 1 week Additional Copies To Rangel Pizarro M.D.; Leonor Day DO Reviewed: Pt Seen/Exam by Me History Physician Conference Planner Supervision Note: I interviewed and examined the patient. Discussed with ELDA Onofre and agree with findings and plan as documented in the note. Any exceptions or clarifications are listed here: Pt feeling great, Ambulated the halls today and POx did not go below 95%, no SOB , no CP. Vitals reviewed NAD, AAOx3 Neck: palpable right occipital nodule about 2 cm,nontender; Right thyroid nodule palpable and nontender RRR no mgr CTAB no wcr, breathing unlabored Abd +BS soft NT ND Ext no edema, 2+ DP pulses 71 yo male with a h/o chronic systolic CHF, CAD, PPM/BiV AICD, DMII, Thyroid nodule, HTN, HL, CKDIII, here with acute systolic CHF and acute hypoxemic resp failure. Likely secondary to recent holding of ACEI and Beta beatriz for 2-3 days. Dry weight stable from previous on admission, but then did diurese almost 2 L here. Had 6 beats of VT last night on telemetry, otherwise remains in A-fib and paced rhythm -SOB and hypoxemia much improved after BiPAP and IV lasix -revert back to home po lasix regimen, KCl replacement - daily weights, Low Na+ diet, continue fluid restriction 1500 mL all at home -start Xarelto for AFib next week after FNA of posterior neck nodule -continue Entresto, Toprol as above -f/u as outpt for Thyroid nodule--> TSH normal but ENT notes mention not a good surgical candidate and to follow with US -Needs further evaluation of heterogenous bone marrow seen on CT neck--> PCP mentioned possible referral to Hematology/Oncology as an outpatient-discussed with patient Demand ischemia/NSTEMI type II--> elevated troponin likely secondary to acute CHF and not ACS. Troponin peaked and trended downward, no ischemic changes on ECG, no chest pain -Stable for discharge to home Documented By: Laly Guido
[2017-10-08 12:00] VITALS: BP 103/67; PULSE 66; TEMP 36.4; O2SAT 96
[2017-10-08] MEDS ORDERED: RIVA1TAB4 PO ×2 (12:46)
[2017-10-08 13:20] VITALS: BP 103/67; PULSE 66; TEMP 36.4; O2SAT 96
== END 2017-10-08 13:59 | disposition home or self-care (01) | DRG 280 ==
LOC: EDBD 10:44 → C.EDC 10:45 → C.MED 13:27 → ENRESERV 14:44
PROVIDERS: ADMIT Hospitalist; ATTEND Family Medicine
DX: I13.0 Hypertensive heart and chronic kidney disease with heart failure and stage 1 through stage 4 chronic kidney disease, or unspecified chronic kidney disease (principal); I50.23 Acute on chronic systolic (congestive) heart failure; J96.01 Acute respiratory failure with hypoxia; N17.9 Acute kidney failure, unspecified; I21.A1 Myocardial infarction type 2; E11.22 Type 2 diabetes mellitus with diabetic chronic kidney disease; N18.3 Chronic kidney disease, stage 3 (moderate); I48.2 Chronic atrial fibrillation; I25.5 Ischemic cardiomyopathy; I25.10 Atherosclerotic heart disease of native coronary artery without angina pectoris; I34.0 Nonrheumatic mitral (valve) insufficiency; E04.1 Nontoxic single thyroid nodule; I25.2 Old myocardial infarction; Z95.810 Presence of automatic (implantable) cardiac defibrillator; Z87.891 Personal history of nicotine dependence; Z79.01 Long term (current) use of anticoagulants; Z79.82 Long term (current) use of aspirin; Z79.84 Long term (current) use of oral hypoglycemic drugs; Z79.899 Other long term (current) drug therapy; Z88.0 Allergy status to penicillin; Z88.1 Allergy status to other antibiotic agents; Z88.2 Allergy status to sulfonamides; Z91.030 Bee allergy status; Z82.49 Family history of ischemic heart disease and other diseases of the circulatory system; Z83.49 Family history of other endocrine, nutritional and metabolic diseases

== ENCOUNTER → 2017-10-12 | Outpatient (CLI) | payer BC ==
[~2017-10-12] MED LIST changes: +RIVA1TAB4 PO; +SACU1TAB PO; +TPRSR50 PO
--- NOTE | 2017-10-12 14:18 | DIAGNOSTIC IMAGING REPORT ---
ULTRASOUND GUIDED FINE NEEDLE ASPIRATION OF RIGHT SUBOCCIPITAL NODULE CLINICAL HISTORY: Right suboccipital palpable nodule. COMPARISON STUDY: Neck ultrasound August 10, [address] of the neck September 29, 2017. PROCEDURE: The procedure, risks and benefits were discussed with the patient. The patient agreed to the procedure and informed consent was obtained. The procedure was performed by Dr. Cherry. Sonography of the right suboccipital region demonstrated the palpable nodule which corresponds to a 1.4 cm echogenic lesion. The sonographic appearance favors a lipoma. This was targeted for fine needle aspiration. Skin was prepped and draped in sterile fashion and local anesthesia was achieved with 1% lidocaine. Under direct ultrasound guidance, 1 25-gauge fine needle aspiration and 1 22-gauge fine needle aspiration were performed. The patient tolerated the procedure well and no immediate complications were evident. IMPRESSION: Ultrasound guided fine needle aspiration of 1.4 cm right suboccipital palpable nodule. Electronically signed by: Frankie Cherry M.D. 10/12/2017 2:17 PM Dictated Date/Time: 10/12/2017 2:08 PM
== END | disposition home or self-care (01) ==
LOC: C.ULTR 12:32
PROVIDERS: ATTEND Physician Assistant
DX: R59.1 Generalized enlarged lymph nodes (principal); R89.6 Abnormal cytological findings in specimens from other organs, systems and tissues

== ENCOUNTER → 2017-10-14 | Outpatient (CLI) | payer BC ==
[~2017-10-14] MED LIST changes: -CARV6.252 PO; -LISI-461 PO
[2017-10-14 12:32] LABS: HEMOGLOBIN A1C 5.9 % (4.5-5.6)
[2017-10-14 12:48] LABS: ALBUMIN 3.7 gm/dl (3.4-5.0); ALT/SGPT 25 U/L (12-78); BLOOD UREA NITROGEN 17 mg/dl (7-18); CALCIUM 8.6 mg/dl (8.5-10.1); CARBON DIOXIDE 28 mmol/L (21-32); CHOLESTEROL 110 mg/dl (0-200); CREATININE 1.19 mg/dl (0.60-1.40); GLUCOSE 120 mg/dl (70-99); POTASSIUM 4.2 mmol/L (3.5-5.1); SODIUM 137 mmol/L (136-145)
[2017-10-14 12:59] LABS: ALKALINE PHOSPHATASE 52 U/L (45-117); AST/SGOT 14 U/L (15-37); LDL CHOLESTEROL CALCULATED 53 mg/dl; TOTAL PROTEIN 7.8 gm/dl (6.4-8.2)
== END | disposition home or self-care (01) ==
LOC: C.LAB1850 11:03
PROVIDERS: ATTEND Family Medicine
DX: E11.8 Type 2 diabetes mellitus with unspecified complications (principal)

== ENCOUNTER → 2017-10-14 | Outpatient (CLI) | payer BC | END | disposition home or self-care (01) | LOC: C.RDSM 14:29 | PROVIDERS: ATTEND Orthopaedic Surgery Sports Medicine | DX: S92.354G Nondisplaced fracture of fifth metatarsal bone, right foot, subsequent encounter for fracture with delayed healing (principal); X58.XXXD Exposure to other specified factors, subsequent encounter ==

== ENCOUNTER → 2018-01-13 | Outpatient (CLI) | payer BC | END | disposition home or self-care (01) | LOC: C.RDSM 15:08 | PROVIDERS: ATTEND Orthopaedic Surgery Sports Medicine | DX: S92.354G Nondisplaced fracture of fifth metatarsal bone, right foot, subsequent encounter for fracture with delayed healing (principal); X58.XXXD Exposure to other specified factors, subsequent encounter ==

== ENCOUNTER → 2018-04-09 | Outpatient (CLI) | payer BC | END | disposition home or self-care (01) | LOC: C.LABSPEC 16:43 | PROVIDERS: ATTEND Physician Assistant | DX: J02.9 Acute pharyngitis, unspecified (principal) ==

== ENCOUNTER 2019-06-11 16:55 | Inpatient (IN) ==
[2019-06-11] MEDS ORDERED: ALBUT/IPRATROP 3MG/0.5MG NEB 3 ML VIAL INH STA (17:10)
--- NOTE | 2019-06-11 17:20 | Emergency Department Note ---
Entered by Bryanna Thomas acting as a scribe for Paul Mahajan MD History of Present Illness General Chief complaint: Shortness of Breath/Dyspnea Stated complaint: SHORTNESS OF BREATH, NO ENGERY Time Seen by Provider: 06/11/19 17:05 Source: patient Limitations: no limitations History of Present Illness Onset (ago): day(s) 10 Location: chest Severity: similar to prior episodes Pain Consistency: + intermittent Quality: + other (SOB) Exacerbated By: + other (exertion) Associated symptoms: + cough and + other (nasal congestion); no chest pain and no fever/chills The patient is a 73 year old male who presents to the Emergency Room with complaints of intermittent shortness of breath that began 10 days ago. He reports that this feels similar to his past episodes of pneumonia. The patient notes that the SOB worsens with exertion. He complains of a persistent cough, noting that he gets "coughing fits." The patient notes that he sometimes brings up thick sputum when he coughs. The patient complains of nasal congestion. He denies any fever and chest pain. The patient notes that someone sneezed in his face while he was at the [facility] three weeks ago, stating this was his only sick contact. He denies any lung disease, oxygen use at home, and inhaler use. The patient notes a history of pulmonary edema and A-fib. He notes that he takes Furosemide and Xarelto. The patient denies any personal or family history of PE or DVT. Home Medications Home Medications Medication Instructions Recorded Confirmed Type omega 6-ugk-aza-fish oil [Fish Oil] 1 cap PO DAILY 09/10/18 06/11/19 History furosemide 40 mg tablet 40 mg PO BID #180 tab 03/17/19 06/11/19 Rx glipizide 5 mg tablet 5 mg PO DAILY #90 tab 03/17/19 06/11/19 Rx metoprolol succinate ER 25 mg 25 mg PO DAILY #90 tab 03/17/19 06/11/19 Rx tablet,extended release 24 hr nitroglycerin 400 mcg/spray 1 sprays SL .COMPLEX PRN #4.9 gm 03/17/19 06/11/19 Rx translingual potassium chloride ER 20 mEq 20 meq PO DAILY #90 tab 03/17/19 06/11/19 Rx tablet,extended release rivaroxaban 20 mg tablet 20 mg PO DAILY #30 tab 03/17/19 06/11/19 Rx sacubitril 24 mg-valsartan 26 mg 1 tab PO BID #180 tab 03/17/19 06/11/19 Rx tablet metolazone 2.5 mg tablet 2.5 mg PO DAILY PRN #90 tab 04/27/19 06/11/19 Rx aspirin [Aspir-81] 81 mg PO DAILY 06/11/19 06/11/19 History cholecalciferol (vitamin D3) 50,000 units PO .QOTHER WEEK 06/11/19 06/11/19 History Allergies Allergy/AdvReac Type Severity Reaction Status Date / Time bee venom protein (honey bee) Allergy Unknown yellow Verified 06/11/19 17:30 jacket Penicillins Allergy Unknown ` Verified 06/11/19 17:30 Nvogyip-Csf-Gmr Reductase Allergy Unknown myalgia Unverified 06/11/19 17:30 Inhibitor levofloxacin AdvReac Intermediate nightmares Verified 06/11/19 17:30 Past Med/Surg History Medical History ICD (implantable cardioverter-defibrillator) in place (Acute 09/02/11) Arteriosclerotic cardiovascular disease (Acute) Atrial fibrillation (Acute) Central hypothyroidism (Acute) Chronic kidney disease, stage 3 (moderate) (Acute) Chronic systolic congestive heart failure (Acute) 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) Dyslipidemia (Acute) Gout (Acute) Hypertension (Acute) Ischemic cardiomyopathy (Acute) Left bundle branch block (LBBB) (Acute) Multinodular goiter (Acute) Old myocardial infarction (Acute) Paroxysmal ventricular tachycardia (Acute) Solitary thyroid nodule (Acute) Vitamin D deficiency (Acute) Acute on chronic systolic congestive heart failure (Resolved) History of pacemaker Surgical History H/O hand surgery L index finger History of ankle surgery S/P foot surgery S/P knee surgery L patella fx repair Family History Father Myocardial infarction Family/Other Heart disease Hypertension Dyslipidemia Other Family history non-contributory Social History Preferred Language: Hebrew marital status: Current Living Situation: Spouse current occupational status: retired Feels Safe at Home: Yes Smoking Status: Never smoker Seatbelt Use: always Review of Systems See HPI for pertinent positives & negatives. and A total of 10 systems reviewed and were otherwise negative Physical Exam Vital Signs Vital Signs - 24 hr 06/11/19 17:01 06/11/19 17:14 06/11/19 17:25 Temperature 36.7 C Temperature Source Oral Sepsis Recent Fever Within 48 Hours No Sepsis New/Unexplained Change in Mental Status No Sepsis Action Taken by Nursing No Action Required Pulse Rate 90 Pulse Rate [Right Finger] Pulse Rate from SpO2 Sensor Respiratory Rate 22 Respiratory Effort / Characteristics Non-Labored Respiratory Depth Normal Respiratory Pattern Blood Pressure 152/95 H Blood Pressure [Right Arm] Blood Pressure Mean 114 Blood Pressure Mean [Right Arm] Blood Pressure Position [Right Arm] Pulse Oximetry 92 94 Oxygen Delivery Method Room Air Room Air Nasal Cannula Oxygen Flow Rate 4 06/11/19 18:03 06/11/19 18:43 06/11/19 19:31 Temperature Temperature Source Sepsis Recent Fever Within 48 Hours Sepsis New/Unexplained Change in Mental Status Sepsis Action Taken by Nursing Pulse Rate 78 Pulse Rate [Right Finger] 84 Pulse Rate from SpO2 Sensor 79 Respiratory Rate 16 20 24 Respiratory Effort / Characteristics Non-Labored Spontaneous Spontaneous Respiratory Depth Normal Respiratory Pattern Regular Blood Pressure 100/57 L Blood Pressure [Right Arm] 120/70 Blood Pressure Mean 71 Blood Pressure Mean [Right Arm] 86 Blood Pressure Position [Right Arm] Lying Pulse Oximetry 95 95 92 Oxygen Delivery Method Nasal Cannula Nasal Cannula Oxygen Flow Rate 4 4 GENERAL: Patient is in no acute distress. HEENT: No acute trauma, normocephalic atraumatic, mucous membranes moist, no nasal congestion, no scleral icterus. NECK: No stridor, no adenopathy, no meningismus, trachea is midline. LUNGS: Diminished breath sounds bilaterally. No respiratory distress. Occasional crackles, no wheezing. Equal breath sounds. HEART: Without murmurs gallops or rubs, regular rate and rhythm. ABDOMEN: Soft, nontender, bowel sounds positive, no hernias, no peritonitis. EXTREMITIES: No cyanosis or edema, full range of motion of all the joints without pain or difficulty, no signs for acute trauma. NEUROLOGIC: Oriented x 3, no acute motor or sensory deficits, no focal weakness. SKIN: No rash, no jaundice, no diaphoresis. Course 1707: The patient was evaluated in room A03. A complete history and physical exam was performed. 1725: The nursing staff informed me that the patient's oxygen saturation dropped to 84%. 182: I reevaluated the patient. He knows hes going to CT scan. I spoke with him about admission, and he is willing to stay. 1921: I spoke with Dr. Flores, [facility] hospitalist, about the patient's case. He will further evaluate the patient. 1924: I updated the patient on the plan. Consultations Consultation #1: I spoke with Dr. Flores, [facility] hospitalist, about the patient's case. He will further evaluate the patient. Time: 19:22 Administered Medications Discontinued Medications Albuterol (Duoneb) 3 ml INH NOW STA Stop: 06/11/19 17:11 Last Admin: 06/11/19 18:03 Dose: 3 ml Documented by: [id number] Furosemide (Lasix) 40 mg IV NOW STA Stop: 06/11/19 19:16 Last Admin: 06/11/19 19:31 Dose: 40 mg Documented by: [id number] Ceftriaxone Sodium (Rocephin) 2,000 mg in 70 mls @ 140 mls/hr IV NOW STA Stop: 06/11/19 18:49 Last Infusion: 06/11/19 19:19 Dose: 0 mls/hr Documented by: [id number] Admin: 06/11/19 18:48 Dose: 140 mls/hr Documented by: [id number] Medical Decision Making Differential Diagnosis The differential diagnosis includes: bronchitis, pneumonia, CHF, influenza or flu-like illness, IA, anemia, electrolyte imbalance Medical Records Attestation: I reviewed the patient's medical records. Home Medications Current Medication List: was personally reviewed by me Laboratory Data Attestation: I reviewed the patient's lab results. Result diagrams: 06/11/19 17:35 06/11/19 17:35 Lab Results 06/11/19 06/11/19 06/11/19 Range/Units 17:35 17:35 17:35 WBC 15.24 H (4.8-10.8) K/uL RBC 3.50 L (4.7-6.1) M/uL Hgb 11.0 L (14.0-18.0) g/dL Hct 32.4 L (42-52) % MCV 92.6 (80-100) fL MCH 31.4 (25-34) pg MCHC 34.0 (32-36) g/dL RDW Std Deviation 54.6 H (36.4-46.3) fL RDW Coeff of Aliyah 16.4 H (11.5-14.5) % Plt Count 354 (130-400) K/uL MPV 10.6 H (7.4-10.4) fL Immature Gran % (Auto) 0.3 % Neut % (Auto) 88.9 % Lymph % (Auto) 5.9 % Williamson % (Auto) 4.0 % Eos % (Auto) 0.6 % Baso % (Auto) 0.3 % Immature Gran # (Auto) 0.05 H (0.00-0.02) K/uL Neut # (Auto) 13.54 H (1.4-6.5) K/uL Lymph # (Auto) 0.90 L (1.2-3.4) K/uL Williamson # (Auto) 0.61 H (0.11-0.59) K/uL Eos # (Auto) 0.09 (0-0.5) K/uL Baso # (Auto) 0.05 (0-0.2) K/uL PT 15.1 H (9.0-12.0) Seconds INR 1.5 H (0.9-1.1) APTT 37.0 H (21.0-31.0) Seconds PTT Ratio 1.4 Sodium 136 (136-145) mmol/L Potassium 3.6 (3.5-5.1) mmol/L Chloride 100 (98-107) mmol/L Carbon Dioxide 26 (21-32) mmol/L Anion Gap 10.0 (3-11) BUN 39 H (7-18) mg/dl Creatinine 1.88 H (0.6-1.4) mg/dl Est Cr Clr Drug Dosing 40.5 ml/min Est GFR ( Amer) 39.6 Est GFR (Non-Af Amer) 34.2 BUN/Creatinine Ratio 20.9 H (10-20) Glucose 205 H (70-99) mg/dl Lactate (0.4-2.0) mmol/L Calcium 8.3 L (8.5-10.1) mg/dl Total Bilirubin 1.5 H (0.2-1) mg/dl AST 15 (15-37) U/L ALT 19 (12-78) U/L Alkaline Phosphatase 73 (45-117) U/L Troponin I 0.030 (0-0.045) ng/ml NT-Pro-B Natriuret Pep 9993 H (0-900) pg/ml Total Protein 8.3 H (6.4-8.2) gm/dl Albumin 3.5 (3.4-5.0) gm/dl Globulin 4.8 H (2.5-4.0) gm/dl Albumin/Globulin Ratio 0.7 L (0.9-2) Influenza Type A Ag (Neg) Influenza Type B Ag (Neg) 06/11/19 06/11/19 Range/Units 17:35 17:55 WBC (4.8-10.8) K/uL RBC (4.7-6.1) M/uL Hgb (14.0-18.0) g/dL Hct (42-52) % MCV (80-100) fL MCH (25-34) pg MCHC (32-36) g/dL RDW Std Deviation (36.4-46.3) fL RDW Coeff of Aliyah (11.5-14.5) % Plt Count (130-400) K/uL MPV (7.4-10.4) fL Immature Gran % (Auto) % Neut % (Auto) % Lymph % (Auto) % Williamson % (Auto) % Eos % (Auto) % Baso % (Auto) % Immature Gran # (Auto) (0.00-0.02) K/uL Neut # (Auto) (1.4-6.5) K/uL Lymph # (Auto) (1.2-3.4) K/uL Williamson # (Auto) (0.11-0.59) K/uL Eos # (Auto) (0-0.5) K/uL Baso # (Auto) (0-0.2) K/uL PT (9.0-12.0) Seconds INR (0.9-1.1) APTT (21.0-31.0) Seconds PTT Ratio Sodium (136-145) mmol/L Potassium (3.5-5.1) mmol/L Chloride (98-107) mmol/L Carbon Dioxide (21-32) mmol/L Anion Gap (3-11) BUN (7-18) mg/dl Creatinine (0.6-1.4) mg/dl Est Cr Clr Drug Dosing ml/min Est GFR ( Amer) Est GFR (Non-Af Amer) BUN/Creatinine Ratio (10-20) Glucose (70-99) mg/dl Lactate 2.2 H* (0.4-2.0) mmol/L Calcium (8.5-10.1) mg/dl Total Bilirubin (0.2-1) mg/dl AST (15-37) U/L ALT (12-78) U/L Alkaline Phosphatase (45-117) U/L Troponin I (0-0.045) ng/ml NT-Pro-B Natriuret Pep (0-900) pg/ml Total Protein (6.4-8.2) gm/dl Albumin (3.4-5.0) gm/dl Globulin (2.5-4.0) gm/dl Albumin/Globulin Ratio (0.9-2) Influenza Type A Ag Neg for Influ A (Neg) Influenza Type B Ag Neg for Influ B (Neg) Imaging Data Radiologist's Impression: Radiology results as stated below per my review and the radiologist's interpretation: XR chest 1V portable HISTORY: 73 years-old Male SOB acute shortness of breath COMPARISON: Chest radiograph 09/10/2018 TECHNIQUE: Portable AP view of the chest FINDINGS: Cardiac silhouette is enlarged, unchanged. Pulmonary vascular congestion with interstitial coarsening. Unchanged positioning of the right pectoral pacer/AICD. No pneumothorax or large pleural effusion. Mild blunting of the costophrenic angles. Degenerative changes of the shoulders and spine. IMPRESSION: 1. Cardiomegaly with pulmonary edema. 2. Probable trace pleural effusions. The above report was generated using voice recognition software. It may contain grammatical, syntax or spelling errors. Electronically signed by: Marshall Ruffin M.D. 06/11/2019 5:[address] chest wo con CT DOSE: 731.37 mGy.cm CLINICAL HISTORY: 73 years-old Male with poss pneumonia. Shortness of breath with possible pneumonia TECHNIQUE: Multiaxial CT images of the chest were performed without contrast. A dose lowering technique was utilized adhering to the principles of ALARA. COMPARISON: Chest radiograph of same day, CTA chest 10/29/2015 FINDINGS: Thyroid goiter with diminutive or surgically absent left thyroid lobe. Prominent and mildly enlarged mediastinal and hilar lymph nodes are present with subcarinal lymph nodes measuring up to 1.4 x 1.7 cm. No axillary or supraclavicular adenopathy identified. Moderate cardiomegaly with extensive coronary arterial calcifications. Right pectoral pacer/AICD is noted with leads overlying the ventricles and right atrium. No pericardial effusion. No thoracic aortic aneurysm. Calcified plaque of the thoracic aorta. Mild dilation of the main pulmonary artery may reflect pulmonary hypertension. Small layering bilateral pleural effusions. No pneumothorax. Mild emphysema. Bilateral intralobular septal thickening with intermixed bilateral groundglass densities. Mild dependent subsegmental bibasilar atelectasis. There are a few tiny likely benign solid pulmonary nodules noted in the bilateral upper lobes measuring up to 2 mm, likely benign. Respiratory motion artifact limits the study. Bilateral bronchial wall thickening suggestive of congestive change versus bronchitis. No acute process of the imaged upper abdomen. Mild generali zed pancreatic atrophy. Soft tissues are unremarkable. Degenerative changes are seen about the shoulders and spine. Cystic changes about the right T3-T4 facets on image 40 series 4 is new from prior and likely secondary to degenerative change. IMPRESSION: 1. Cardiomegaly with interstitial pulmonary edema and small bilateral pleural effusions. 2. Bilateral patchy intermixed groundglass opacities are suggestive of alveolar pulmonary edema versus superimposed pneumonitis. 3. Mild mediastinal and hilar adenopathy, likely reactive. 4. Thyroid goiter. 5. Additional findings as above. Electronically signed by: Marshall Ruffin M.D. 06/11/2019 7:06 PM ECG Data Attestation: I personally reviewed and interpreted this ECG as follows: Indication: SOB/dyspnea Rate (beats per minute): 89 Rhythm: other (ventricular pacemaker) Findings: + other (QTC is 513); no ST elevation and no ectopy Blood Pressure Blood Pressure Findings: Elevated blood pressure Blood Pressure Disposition: further management by hospitalist LEMUEL Narrative There is a moderate leukocytosis at 15,000, this could be consistent with infection. Patient is anemic, he does have a history of anemia although his numbers today lower than his typical baseline. INR is elevated, likely cons istent with his Xarelto use. Creatinine is elevated at 1.88, he has a history of renal insufficiency. Lactic acid level is slightly elevated, this could be consistent with infection. Bilirubin mildly elevated however, the other liver enzymes are normal. BNP was elevated consistent with fluid overload. Influenza testing was negative. Chest film showed some potential CHF, no pneumonia. EKG showed a paced rhythm, no acute ischemia. Cardiac enzyme testing x1 is not consistent with acute cardiac injury. Chest CT does show a patchy pneumonia plus some fluid overload. The patient received a DuoNeb, this did help his breathing. He received IV ceftriaxone and IV Lasix. The patient deserves a hospital stay. He was hypoxic in the mid 80s, he now requires O2 supplementation. The reason for his dyspnea I believe is twofold. He has a pneumonia, he has some fluid overload. Hospitalization is warranted. I spoke to the patient and case management. The on-call hospitalist was consulted. Impression & Plan Hypoxia, SOB (shortness of breath), Pneumonia, CHF (congestive heart failure) Discharge Plan Visit Data Chief Complaint: Shortness of Breath/Dyspnea Stated Complaint: SHORTNESS OF BREATH, NO ENGERY ED Provider: Paul Mahajan Discharge Problem: Hypoxia, SOB (shortness of breath), Pneumonia, CHF (congestive heart failure) Patient Disposition: Being Evaluated by Hospitalist Forms Stand Alone Forms: My [facility] Prescriptions Prescriptions: No Action metolazone 2.5 mg tablet 2.5 mg PO DAILY PRN (Reason: Fluid Retention) Qty: 90 RF: 1 nitroglycerin 400 mcg/spray spray,non-aerosol 1 sprays SL .COMPLEX PRN (Reason: chest pain) Qty: 4.9 RF: 0 Xarelto 20 mg tablet 20 mg PO DAILY Qty: 30 RF: 0 metoprolol succinate 25 mg tablet extended release 24 hr 25 mg PO DAILY Qty: 90 RF: 0 furosemide [Lasix] 40 mg tablet 40 mg PO BID Qty: 180 RF: 0 potassium chloride 20 mEq tablet extended release 20 meq PO DAILY Qty: 90 RF: 0 Entresto 24-26 mg tablet 1 tab PO BID Qty: 180 RF: 0 glipizide 5 mg tablet 5 mg PO DAILY Qty: 90 RF: 0 cholecalciferol (vitamin D3) 50,000 unit capsule 50,000 units PO .QOTHER WEEK RF: 0 aspirin [Aspir-81] 81 mg Tablet,Delayed Release (Dr/Ec) 81 mg PO DAILY RF: 0 omega 7-khr-hal-fish oil [Fish Oil] 1,000 mg (120 mg-180 mg) Capsule 1 cap PO DAILY RF: 0 Referrals Referrals: Leonor Day DO [Primary Care Provider] - Discharge Problem: Pneumonia Qualifiers: Pneumonia type: due to unspecified organism Laterality: unspecified laterality Lung location: unspecified part of lung Qualified Code(s): J18.9 - Pneumonia, unspecified organism CHF (congestive heart failure) Qualifiers: Heart failure type: unspecified Heart failure chronicity: unspecified Qualified Code(s): I50.9 - Heart failure, unspecified The scribe's documentation has been prepared under my direction and personally reviewed by me in its entirety. I confirm that the note above accurately reflects all work, treatment, procedures, and medical decision making performed by me.
--- NOTE | 2019-06-11 17:44 | XRay Report ---
XR chest 1V portable HISTORY: 73 years-old Male SOB acute shortness of breath COMPARISON: Chest radiograph 09/10/2018 TECHNIQUE: Portable AP view of the chest FINDINGS: Cardiac silhouette is enlarged, unchanged. Pulmonary vascular congestion with interstitial coarsening . Unchanged positioning of the right pectoral pacer/AICD. No pneumothorax or large pleural effusion. Mild blunting of the costophrenic angles. Degenerative changes of the shoulders and spine. IMPRESSION: 1. Cardiomegaly with pulmonary edema. 2. Probable trace pleural effusions. The above report was generated using voice recognition software. It may contain grammatical, syntax o r spelling errors. Electronically signed by: Marshall Ruffin M.D. 06/11/2019 5:43 PM
[2019-06-11 17:51] LABS: Basophils # (auto) 0.05 K/uL (0-0.2); Basophils % (auto) 0.3 %; Eosinophils # (auto) 0.09 K/uL (0-0.5); Eosinophils % (auto) 0.6 %; Hematocrit (blood only) 32.4 % (42-52); Immature Granulocytes # (auto) 0.05 K/uL (0.00-0.02); Immature Granulocytes % (auto) 0.3 %; Lymphocytes % (auto) 5.9 %; Mean Corpuscular Hemoglobin 31.4 pg (25-34); Mean Corpuscular Volume 92.6 fL (80-100); Mean Platelet Volume 10.6 fL (7.4-10.4); Monocytes # (auto) 0.61 K/uL (0.11-0.59); Neutrophils # (auto) 13.54 K/uL (1.4-6.5); Neutrophils % (auto) 88.9 %; Platelet Count 354 K/uL (130-400); RDW Coefficient of Variation 16.4 % (11.5-14.5); RDW Standard Deviation 54.6 fL (36.4-46.3); White Blood Count 15.24 K/uL (4.8-10.8)
[2019-06-11 18:08] LABS: INR 1.5 (0.9-1.1); Partial Thromboplastin Ratio 1.4; Prothrombin Time 15.1 Seconds (9.0-12.0)
[2019-06-11 18:09] LABS: Albumin Level 3.5 gm/dl (3.4-5.0); BUN Creatinine Ratio 20.9 (10-20); Calcium 8.3 mg/dl (8.5-10.1); Creatinine Clr Calc Pharmacy 40.5 ml/min; Est GFR (African American) 39.6; Est GFR (Non-African American) 34.2; Potassium 3.6 mmol/L (3.5-5.1)
[2019-06-11 18:14] LABS: Albumin Globulin Ratio 0.7 (0.9-2); Bilirubin,Total 1.5 mg/dl (0.2-1); Globulin 4.8 gm/dl (2.5-4.0); Total Protein 8.3 gm/dl (6.4-8.2); Troponin I 0.03 ng/ml (0-0.045)
[2019-06-11] MEDS ORDERED: cefTRIAXone SODIUM 2,000 MG/70 ML BAG IV STA (18:20)
--- NOTE | 2019-06-11 19:08 | CT Scan Report ---
CT chest wo con CT DOSE: 731.37 mGy.cm CLINICAL HISTORY: 73 years-old Male with poss pneumonia. Shortness of breath with possible pneumonia TECHNIQUE: Multiaxial CT images of the chest were performed without contrast. A dose lowering techni que was utilized adhering to the principles of ALARA. COMPARISON: Chest radiograph of same day, CTA chest 10/29/2015 FINDINGS: Thyroid goiter with diminutive or surgically absent left thyroid lobe. Prominent and mildly enlarged mediastinal and hilar lymph nodes are present with subcarinal lymph nodes measuring up to 1.4 x 1.7 c m. No axillary or supraclavicular adenopathy identified. Moderate cardiomegaly with extensive coronar y arterial calcifications. Right pectoral pacer/AICD is noted with leads overlying the ventricles and right atrium. No pericardial effusion. No thoracic aortic aneurysm. Calcified plaque of the thoracic aorta. Mild dilation of the main pulmonary artery may reflect pulmonary hypertension. Small layering bilateral pleural effusions. No pneumothorax. Mild emphysema. Bilateral intralobular s eptal thickening with intermixed bilateral groundglass densities. Mild dependent subsegmental bibasil ar atelectasis. There are a few tiny likely benign solid pulmonary nodules noted in the bilateral upp er lobes measuring up to 2 mm, likely benign. Respiratory motion artifact limits the study. Bilateral bronchial wall thickening suggestive of congestive change versus bronchitis. No acute process of the imaged upper abdomen. Mild generalized pancreatic atrophy. Soft tissues are unremarkable. Degenerati ve changes are seen about the shoulders and spine. Cystic changes about the right T3-T4 facets on clare ge 40 series 4 is new from prior and likely secondary to degenerative change. IMPRESSION: 1. Cardiomegaly with interstitial pulmonary edema and small bilateral pleural effusions. 2. Bilateral patchy intermixed groundglass opacities are suggestive of alveolar pulmonary edema versu s superimposed pneumonitis. 3. Mild mediastinal and hilar adenopathy, likely reactive. 4. Thyroid goiter. 5. Additional findings as above. Electronically signed by: Marshall Ruffin M.D. 06/11/2019 7:06 PM
[2019-06-11] MEDS ORDERED: FUROSEMIDE 40 MG/4 ML VIAL IV STA ×2 (19:15→19:46)
[2019-06-11] MEDS ORDERED: ONDANSETRON INJ 2 MG/ML 2 ML VIAL IV PRN (21:24)
[2019-06-11] MEDS ORDERED: GLUCAGON FOR INJ 1 MG VIAL SQ PRN (21:24)
[2019-06-11] MEDS ORDERED: NITROGLYCERIN SL 0.4 MG/TAB TAB SL PRN (21:24)
[2019-06-11] MEDS ORDERED: AZITHROMYCIN 500 MG in DEXTROSE 5% 250 ML IV SCH (21:24)
[2019-06-11] MEDS ORDERED: DEXTROSE 50% 50 ML SYRINGE IV PRN (21:24)
[2019-06-11] MEDS ORDERED: ACETAMINOPHEN 325 MG TAB PO PRN (21:24)
[2019-06-11] MEDS ORDERED: CARBOHYDRATES FOR HYPOGLYCEMIA PO PRN (21:24)
[2019-06-11] MEDS ORDERED: ALBUT/IPRATROP 3MG/0.5MG NEB 3 ML VIAL NEB PRN (21:24)
[2019-06-11] MEDS ORDERED: GLUCOSE 40% GEL 15 GM TUBE PO PRN (21:24)
[2019-06-11] MEDS ORDERED: GLUCOSE 10 TABS/TUBE PO PRN (21:24)
--- NOTE | 2019-06-11 21:50 | History & Physical Report ---
Date of Service June 11, 2019 Assessment & Plan (1) Acute respiratory failure with hypoxia: Admit PCU supplemental oxygen (2) Pneumonia: IV Rocephin IV azithromycin Duo nebs prn DVT prophylaxis = SCDs and continuing Xarelto. (3) Acute on chronic systolic (congestive) heart failure: gave total 80mg IV this evening re-evaluate in the am I ordered his usual oral Lasix dose at 40mg bid. Daily weights. Continue metolazone and sacubitril/valsartan. (4) Diabetes mellitus type 2 with complications: Continue Glyburide sliding scale coverage. ADA diet. (5) Atrial fibrillation: In paced rhythm continue Xarelto continue metoprolol. (6) Ischemic cardiomyopathy: Previous documented echo was 10/18 I will recheck echo. (7) Chronic kidney disease, stage 3 (moderate): Monitor renal function in the face of diuretic use. History of Present Illness 73 y/o male presented to the ED with a 10 day history of SOB that is exacerbated by exertion. He is having "coughing fits" which brings out thick yellow mucous. He notes that [place] 3 weeks [place]. He has had pneumonia in the past and reports that this feels the same. He has a history of CHF, but has not noted an increase in weight and he has been compliant with his Lasix. No Chest pain, F/C, or N/V/D. Primary Care Provider: Leonor Day DO Allergies Allergy/AdvReac Type Severity Reaction Status Date / Time bee venom protein (honey bee) Allergy Unknown yellow Verified 06/17/19 12:59 jacket Penicillins Allergy Unknown ` Verified 06/17/19 12:59 Himnmwl-Tns-Nsy Reductase Allergy Unknown myalgia Unverified 06/17/19 12:59 Inhibitor levofloxacin AdvReac Intermediate nightmares Verified 06/17/19 12:59 Home Medications Home Medications Medication Instructions Recorded Confirmed Type omega 3-ltq-niv-fish oil [Fish Oil] 1 cap PO DAILY 09/10/18 06/17/19 History furosemide 40 mg tablet 40 mg PO BID #180 tab 03/17/19 06/17/19 Rx glipizide 5 mg tablet 5 mg PO DAILY #90 tab 03/17/19 06/17/19 Rx metoprolol succinate ER 25 mg 25 mg PO DAILY #90 tab 03/17/19 06/17/19 Rx tablet,extended release 24 hr nitroglycerin 400 mcg/spray 1 sprays SL .COMPLEX PRN #4.9 gm 03/17/19 06/17/19 Rx translingual potassium chloride ER 20 mEq 20 meq PO DAILY #90 tab 03/17/19 06/17/19 Rx tablet,extended release sacubitril 24 mg-valsartan 26 mg 1 tab PO BID #180 tab 03/17/19 06/17/19 Rx tablet metolazone 2.5 mg tablet 2.5 mg PO DAILY PRN #90 tab 04/27/19 06/17/19 Rx aspirin [Aspir-81] 81 mg PO DAILY 06/11/19 06/17/19 History cholecalciferol (vitamin D3) 50,000 units PO Q14D cap 06/15/19 06/15/19 History 50,000 unit capsule rivaroxaban 15 mg tablet 15 mg PO QPM #30 tab 06/22/19 Rx Past Med/Surg History Medical History ICD (implantable cardioverter-defibrillator) in place (Acute 09/02/11) Arteriosclerotic cardiovascular disease (Acute) Atrial fibrillation (Acute) Central hypothyroidism (Acute) Chronic kidney disease, stage 3 (moderate) (Acute) Chronic systolic congestive heart failure (Acute) 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) Dyslipidemia (Acute) Gout (Acute) Hypertension (Acute) Ischemic cardiomyopathy (Acute) Left bundle branch block (LBBB) (Acute) Multinodular goiter (Acute) Old myocardial infarction (Acute) Paroxysmal ventricular tachycardia (Acute) Solitary thyroid nodule (Acute) Vitamin D deficiency (Acute) Acute on chronic systolic congestive heart failure (Resolved) History of pacemaker Surgical History H/O hand surgery L index finger History of ankle surgery S/P foot surgery S/P knee surgery L patella fx repair Family History Father Myocardial infarction Family/Other Heart disease Hypertension Dyslipidemia Other Family history non-contributory Social History Preferred Language: Upper Sorbian Communication Ability: Effective 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 Beliefs That Will Affect Care: None marital status: Current Living Situation: Spouse current occupational status: retired Feels Safe at Home: Yes Smoking Status: Former smoker Second Hand Exposure: No ; Hx Alcohol Use: Yes Alcohol type: wine Hx Substance Use: No Seatbelt Use: always Review of Systems Review of Systems: Constitutional- no fever; no weight loss Eyes- no acute visual changes ENT- no sinus drainage; no pharyngitis Pulmonary- As in HPI Cardiac- no chest pain, no palpitations, no orthopnea, no dependent edema GI- no nausea, no vomiting, no diarrhea, no melena, no hematochezia - no dysuria, no hematuria Musculoskeletal- no arthralgias, no myalgias Derm- no rashes, no new skin lesions, no changing skin lesions Hematologic- no unusual bruising, no unusual bleeding Lymphatics- no adenopathy Endocrine- no polyuria or polydipsia; no heat or cold intolerance Neuro- no headaches, no focal neurologic symptoms Psych- no anxiety, no depression Physical Exam Physical Exam: General- adult male, NAD Head- atraumatic Eyes- PERRL, EOMI, anicteric ENT- oropharynx clear Neck- supple, no JVD, no adenopathy, no thyromegaly. Lungs- Crackles 1/[address] up b/l, few scattered rhonchi, No wheezes noted. Heart- regular rhythm (paced), no murmur, no gallop, no rub appreciated Abdomen- normal bowel sounds, soft, nontender. Extremities- no pretibial edema, no calf tenderness; peripheral pulses intact Neuro- alert, oriented x 3; PERRL, EOMI; lamp shade sewer II-XII grossly intact, Non-focal. Skin- warm & dry Results & Data Vital Signs (Past 12 Hours) Vital Signs Temp Pulse Pulse Resp BP BP Pulse Ox 06/11/19 21:20 36.9 C 80 18 102/65 92 06/11/19 20:31 75 24 106/65 92 06/11/19 20:15 79 26 H 114/57 L 90 06/11/19 20:14 76 27 H 114/57 L 90 06/11/19 19:45 82 24 105/62 91 06/11/19 19:31 78 24 100/57 L 92 06/11/19 18:43 20 120/70 95 06/11/19 18:03 84 16 95 06/11/19 17:25 94 06/11/19 17:01 36.7 C 90 22 152/95 H 92 Laboratory Results Laboratory Results WBC 15.24 K/uL (4.8-10.8) H 06/11/19 17:35 RBC 3.50 M/uL (4.7-6.1) L 06/11/19 17:35 Hgb 11.0 g/dL (14.0-18.0) L 06/11/19 17:35 Hct 32.4 % (42-52) L 06/11/19 17:35 MCV 92.6 fL (80-100) 06/11/19 17:35 MCH 31.4 pg (25-34) 06/11/19 17:35 MCHC 34.0 g/dL (32-36) 06/11/19 17:35 RDW Std Deviation 54.6 fL (36.4-46.3) H 06/11/19 17:35 RDW Coeff of Aliyah 16.4 % (11.5-14.5) H 06/11/19 17:35 Plt Count 354 K/uL (130-400) 06/11/19 17:35 MPV 10.6 fL (7.4-10.4) H 06/11/19 17:35 Immature Gran % (Auto) 0.3 % 06/11/19 17:35 Neut % (Auto) 88.9 % 06/11/19 17:35 Lymph % (Auto) 5.9 % 06/11/19 17:35 [place] % (Auto) 4.0 % 06/11/19 17:35 Eos % (Auto) 0.6 % 06/11/19 17:35 Baso % (Auto) 0.3 % 06/11/19 17:35 Immature Gran # (Auto) 0.05 K/uL (0.00-0.02) H 06/11/19 17:35 Neut # (Auto) 13.54 K/uL (1.4-6.5) H 06/11/19 17:35 Lymph # (Auto) 0.90 K/uL (1.2-3.4) L 06/11/19 17:35 [place] # (Auto) 0.61 K/uL (0.11-0.59) H 06/11/19 17:35 Eos # (Auto) 0.09 K/uL (0-0.5) 06/11/19 17:35 Baso # (Auto) 0.05 K/uL (0-0.2) 06/11/19 17:35 PT 15.1 Seconds (9.0-12.0) H 06/11/19 17:35 INR 1.5 (0.9-1.1) H 06/11/19 17:35 APTT 37.0 Seconds (21.0-31.0) H 06/11/19 17:35 PTT Ratio 1.4 06/11/19 17:35 Sodium 136 mmol/L (136-145) 06/11/19 17:35 Potassium 3.6 mmol/L (3.5-5.1) 06/11/19 17:35 Chloride 100 mmol/L (98-107) 06/11/19 17:35 Carbon Dioxide 26 mmol/L (21-32) 06/11/19 17:35 Anion Gap 10.0 (3-11) 06/11/19 17:35 BUN 39 mg/dl (7-18) H 06/11/19 17:35 Creatinine 1.88 mg/dl (0.6-1.4) H 06/11/19 17:35 Est Cr Clr Drug Dosing 40.5 ml/min 06/11/19 17:35 Est GFR ( Amer) 39.6 06/11/19 17:35 Est GFR (Non-Af Amer) 34.2 06/11/19 17:35 BUN/Creatinine Ratio 20.9 (10-20) H 06/11/19 17:35 Glucose 205 mg/dl (70-99) H 06/11/19 17:35 POC Glucose 187 (70-99) H 06/11/19 21:43 Lactate 2.2 mmol/L (0.4-2.0) H* 06/11/19 17:35 Calcium 8.3 mg/dl (8.5-10.1) L 06/11/19 17:35 Total Bilirubin 1.5 mg/dl (0.2-1) H 06/11/19 17:35 AST 15 U/L (15-37) 06/11/19 17:35 ALT 19 U/L (12-78) 06/11/19 17:35 Alkaline Phosphatase 73 U/L (45-117) 06/11/19 17:35 Troponin I 0.030 ng/ml (0-0.045) 06/11/19 17:35 NT-Pro-B Natriuret Pep 9993 pg/ml (0-900) H 06/11/19 17:35 Total Protein 8.3 gm/dl (6.4-8.2) H 06/11/19 17:35 Albumin 3.5 gm/dl (3.4-5.0) 06/11/19 17:35 Globulin 4.8 gm/dl (2.5-4.0) H 06/11/19 17:35 Albumin/Globulin Ratio 0.7 (0.9-2) L 06/11/19 17:35 Influenza Type A Ag Neg for Influ A (Neg) 06/11/19 17:55 Influenza Type B Ag Neg for Influ B (Neg) 06/11/19 17:55 Diagnostic Findings [place], [place] [phone] CT Scan Report Patient: REJI BANSAL Date: 06/11/19 MR#: [id number]: [id number] [facility] Acct ID:[id number]: [facility] Zip: [place] [address] Age: 73Location: ED Sex: M Room/Bed: Att Phy:Diagnosis: SHORTNESS OF BREATH, NO ENGERY Sondra Phy: Leonor Day, DOService Date: 06/11/19 Fam Phy: Leonor Day, DOInterpreting Phy: Iain Ruffin Admit Phy: Ordering Phy: Paul Mahajan M.D. cc: ~ CT chest wo con CT DOSE: 731.37 mGy.cm CLINICAL HISTORY: 73 years-old Male with poss pneumonia. Shortness of breath with possible pneumonia TECHNIQUE: Multiaxial CT images of the chest were performed without contrast. A dose lowering technique was utilized adhering to the principles of ALARA. COMPARISON: Chest radiograph of same day, CTA chest 10/29/2015 FINDINGS: Thyroid goiter with diminutive or surgically absent left thyroid lobe. Prominent and mildly enlarged mediastinal and hilar lymph nodes are present with subcarinal lymph nodes measuring up to 1.4 x 1.7 cm. No axillary or supraclavicular adenopathy identified. Moderate cardiomegaly with extensive coronary arterial calcifications. Right pectoral pacer/AICD is noted with leads overlying the ventricles and right atrium. No pericardial effusion. No thoracic aortic aneurysm. Calcified plaque of the thoracic aorta. Mild dilation of the main pulmonary artery may reflect pulmonary hypertension. Small layering bilateral pleural effusions. No pneumothorax. Mild emphysema. Bilateral intralobular septal thickening with intermixed bilateral groundglass densities. Mild dependent subsegmental bibasilar atelectasis. There are a few tiny likely benign solid pulmonary nodules noted in the bilateral upper lobes m easuring up to 2 mm, likely benign. Respiratory motion artifact limits the study. Bilateral bronchial wall thickening suggestive of congestive change versus bronchitis. No acute process of the imaged upper abdomen. Mild generalized pancreatic atrophy. Soft tissues are unremarkable. Degenerative changes are seen about the shoulders and spine. Cystic changes about the right T3-T4 facets on image 40 series 4 is new from prior and likely secondary to degenerative change. IMPRESSION: 1. Cardiomegaly with interstitial pulmonary edema and small bilateral pleural effusions. 2. Bilateral patchy intermixed groundglass opacities are suggestive of alveolar pulmonary edema versus superimposed pneumonitis. 3. Mild mediastinal and hilar adenopathy, likely reactive. 4. Thyroid goiter. 5. Additional findings as above. Electronically signed by: Marshall Ruffin M.D. 06/11/2019 7:06 PM Dictated: 06/11/19 1855 Transcribed: 06/11/19 185 Code Status & VTE Plan VTE Prophylaxis Plan VTE Prophylaxis will be ordered: Yes PG Care Time/CCT Total # of Minutes Spent Total Time Spent: 65 Total Time Spent with Patient: Total time spent is greater than 50% in coordination of care (as documented) at patient's floor/unit and/or counseling patient: (1) Pneumonia Laterality: unspecified laterality Lung location: unspecified part of lung Pneumonia type: due to unspecified organism Qualified Code(s): J18.9 - Pneumonia, unspecified organism
[2019-06-11] MEDS: SACUBITRIL-VALSARTAN 24-26 MG TAB PO SCH (23:24)
[2019-06-11] MEDS: FUROSEMIDE 40 MG TAB PO SCH (23:26)
[2019-06-11] MEDS: INSULIN ASPART 100 UNITS/ML 3 ML PEN SC SCH (23:27)
[2019-06-12] MEDS: DOXYCYCLINE HYCLATE 100 MG in DEXTROSE 5% 100 ML IV SCH ×2 (03:55→16:35)
[2019-06-12 05:41] LABS: Hematocrit (blood only) 29.5 % (42-52); Hemoglobin 9.7 g/dL (14.0-18.0); Mean Corpuscular Hemoglobin 30.8 pg (25-34); Mean Corpuscular Hgb Conc 32.9 g/dL (32-36); Mean Corpuscular Volume 93.7 fL (80-100); Mean Platelet Volume 10.7 fL (7.4-10.4); Platelet Count 275 K/uL (130-400); RDW Coefficient of Variation 16.5 % (11.5-14.5); Red Blood Count 3.15 M/uL (4.7-6.1); White Blood Count 10.18 K/uL (4.8-10.8)
[2019-06-12 06:19] LABS: Creatinine Clr Calc Pharmacy 41.5 ml/min; Est GFR (Non-African American) 36.3; Potassium 3.4 mmol/L (3.5-5.1)
[2019-06-12] MEDS: FUROSEMIDE 40 MG TAB PO SCH ×2 (08:05→20:31)
[2019-06-12] MEDS: METOPROLOL SUCC 25MG EXT REL TAB PO SCH (08:08)
[2019-06-12] MEDS: glipiZIDE 5 MG TAB PO SCH (08:08)
[2019-06-12] MEDS: ASPIRIN 81 MG ECTAB PO SCH (08:08)
[2019-06-12] MEDS: metOLazone 2.5 MG TABLET PO SCH (08:08)
[2019-06-12] MEDS: OMEGA-3 (PURIFIED FISH OIL) 1 GM CAP PO SCH (08:09)
[2019-06-12] MEDS: POTASSIUM CHLORIDE 20 MEQ TABCR PO SCH (08:09)
[2019-06-12] MEDS: SACUBITRIL-VALSARTAN 24-26 MG TAB PO SCH ×2 (08:09→20:31)
[2019-06-12] MEDS: INSULIN ASPART 100 UNITS/ML 3 ML PEN SC SCH ×4 (08:11→20:33)
[2019-06-12] MEDS ORDERED: PERFLUTREN LIPID MICROSPHERE (DEFINITY) IV ONE (09:11)
[2019-06-12] MEDS ORDERED: RIVAROXABAN 15 MG TAB PO SCH (16:30)
--- NOTE | 2019-06-12 18:29 | Hospitalist Progress Note ---
Date of Service June 12, 2019 Assessment & Plan (1) Acute respiratory failure with hypoxia: Appears to have been related to both community-acquired pneumonia and subsequent to the pneumonia and acute on chronic systolic CHF exacerbation. Improving. Continue to wean oxygen (2) Pneumonia: Most likely community-acquiredcontinue Rocephin and doxy. Improving. (3) Acute on chronic systolic (congestive) heart failure: Probably precipitated by the physiologic stress from the pneumonia. Had additional IV Lasix, now back on home dosing. Appears to have improved, sounds euvolemic Continue metolazone and sacubitril/valsartan. (4) Diabetes mellitus type 2 with complications: Sugars reasonable, continue current care (5) Atrial fibrillation: Rate controlled, anticoagulated (6) Ischemic cardiomyopathy: Echo stable, see above otherwise (7) Chronic kidney disease, stage 3 (moderate): Renal function overall reasonable (8) Discharge planning issues: Stable for MedSurg. Improving, hopefully home in the next 1 to 2 days Subjective Feeling a good bit better than whenever he came in. Still dyspnea on exertion, but notes definitely better than before. Coughing up reddish-brown mucus. No fevers chills or sweats. Review of Systems Review of Systems: All systems reviewed & are unremarkable except as noted in HPI & below Physical Exam Physical Exam: General he is awake and alert pleasant no distress. HEENT normocephalic atraumatic mucous membranes moist. Lungs show faint rales mid right lung otherwise clear no other rales rhonchi or wheezes good effort no accessory muscle use. Neuro shows no focal deficits. Results & Data Vital Signs (Past 12 Hours) Vital Signs Temp Pulse Pulse Resp BP Pulse Ox 06/12/19 15:55 98.6 F 83 22 118/68 93 06/12/19 12:00 98.2 F 87 20 107/71 92 06/12/19 09:19 68 06/12/19 07:15 97.5 F L 84 17 101/65 93 PG Care Time/CCT Total # of Minutes Spent Total Time Spent with Patient: Total time spent is greater than 50% in coordination of care (as documented) at patient's floor/unit and/or counseling patient: (1) Pneumonia Laterality: unspecified laterality Lung location: unspecified part of lung Pneumonia type: due to unspecified organism Qualified Code(s): J18.9 - Pneumonia, unspecified organism
[2019-06-12] MEDS: cefTRIAXone SODIUM 2,000 MG in DEXTROSE 5% 50 ML IV SCH (18:47)
[2019-06-13] MEDS: DOXYCYCLINE HYCLATE 100 MG in DEXTROSE 5% 100 ML IV SCH (03:23)
[2019-06-13 05:53] LABS: Hematocrit (blood only) 28.6 % (42-52); Hemoglobin 9.6 g/dL (14.0-18.0); Mean Corpuscular Hemoglobin 31.2 pg (25-34); Mean Corpuscular Hgb Conc 33.6 g/dL (32-36); Mean Corpuscular Volume 92.9 fL (80-100); Mean Platelet Volume 10.7 fL (7.4-10.4); Platelet Count 350 K/uL (130-400); RDW Coefficient of Variation 16.7 % (11.5-14.5); RDW Standard Deviation 56.2 fL (36.4-46.3); Red Blood Count 3.08 M/uL (4.7-6.1); White Blood Count 11.92 K/uL (4.8-10.8)
[2019-06-13 06:29] LABS: BUN Creatinine Ratio 22.4 (10-20); Calcium 8.3 mg/dl (8.5-10.1); Creatinine Clr Calc Pharmacy 38.8 ml/min; Est GFR (African American) 39.1; Est GFR (Non-African American) 33.7; Potassium 3.4 mmol/L (3.5-5.1)
[2019-06-13] MEDS: metOLazone 2.5 MG TABLET PO SCH ×2 (08:27→08:30)
[2019-06-13] MEDS: SACUBITRIL-VALSARTAN 24-26 MG TAB PO SCH (08:27)
[2019-06-13] MEDS: ASPIRIN 81 MG ECTAB PO SCH (08:27)
[2019-06-13] MEDS: glipiZIDE 5 MG TAB PO SCH (08:27)
[2019-06-13] MEDS: POTASSIUM CHLORIDE 20 MEQ TABCR PO SCH (08:27)
[2019-06-13] MEDS: OMEGA-3 (PURIFIED FISH OIL) 1 GM CAP PO SCH (08:27)
[2019-06-13] MEDS: METOPROLOL SUCC 25MG EXT REL TAB PO SCH (08:28)
[2019-06-13] MEDS: FUROSEMIDE 40 MG TAB PO SCH (08:28)
[2019-06-13] MEDS: INSULIN ASPART 100 UNITS/ML 3 ML PEN SC SCH ×2 (08:33→12:30)
[2019-06-13] MEDS ORDERED: NURSING DECISION MEDICATION ONE (09:06)
[2019-06-13] MEDS ORDERED: SODIUM CHLORIDE 0.65% NA SOLN 45 ML (OCEAN) PRN (09:13)
[2019-06-13] MEDS ORDERED: POTASSIUM CHLORIDE 20 MEQ TABCR PO STA (09:45)
[2019-06-13] MEDS ORDERED: cefTRIAXone SODIUM 1,000 MG in DEXTROSE 5% 50 ML IV STA (12:10)
[2019-06-13] MEDS: cefTRIAXone SODIUM 2,000 MG in DEXTROSE 5% 50 ML IV SCH (12:52)
--- NOTE | 2019-06-13 20:29 | Discharge Summary ---
Date of Service June 13, 2019 Principal Diagnosis Community-acquired pneumonia, mild secondary acute exacerbation of chronic systolic CHF flared by physiologic stress from pneumonia Discharge Exam General he is awake and alert pleasant no distress. HEENT normocephalic atraumatic mucous membranes moist. Lungs are overall surprisingly clear to auscultation may be faint Rales but no rhonchi no wheezes good effort no accessory muscle use. Cardio is regular without rubs murmurs gallops. Extremities show no sinus clubbing or edema. Gait is stable and steady Discharge Data Allergies Allergy/AdvReac Type Severity Reaction Status Date / Time bee venom protein (honey bee) Allergy Unknown yellow Verified 06/11/19 17:30 jacket Penicillins Allergy Unknown ` Verified 06/11/19 17:30 Sxodlpd-Tda-Kfd Reductase Allergy Unknown myalgia Unverified 06/11/19 17:30 Inhibitor levofloxacin AdvReac Intermediate nightmares Verified 06/11/19 17:30 Consultations 06/11/19 19:22 ED Decision to Admit Stat 06/13/19 10:42 Consult Case Management - Discharge Planning Routine Consult [facility] carboy filler Routine Ordered Studies 06/11/19 18:17 CT chest wo con Stat Hospital Course (1) Acute respiratory failure with hypoxia: Appears to have been related to both community-acquired pneumonia and subsequent to the pneumonia and acute on chronic systolic CHF exacerbation. Improving. Actually able to wean oxygen to off. Earlier in the day I walked him and had pulse ox is in the high 80s on room air (86 to 88%) but later whenever respiratory therapy walked him he actually did much better suggesting that probably a degree of atelectasis was also at play at least in terms of today's hypoxia. (2) Pneumonia: Most likely community-acquiredimproved on Rocephin and doxycycline, discharged home on Cefdinir and doxycycline to complete a 7-day course of therapy. If he is slow to improve or shows any worsening, obviously the course can be extended. (3) Acute on chronic systolic (congestive) heart failure: Probably precipitated by the physiologic stress from the pneumonia. Had additional IV Lasix, now back on home dosing. Appears to have improved, sounds euvolemic on exam, creatinine at the high end of his baseline range. Discharged home on his home meds, basic metabolic panel later this week (4) Diabetes mellitus type 2 with complications: Sugars have overall been reasonable, sent home on home meds (5) Atrial fibrillation: Rate controlled, anticoagulated (6) Ischemic cardiomyopathy: Echo stable, see above otherwise (7) Chronic kidney disease, stage 3 (moderate): Renal function overall reasonable (8) Discharge planning issues: Appearing to be stable for home. (9) Lyme arthritis: When discussing the antibiotics we are going to discharge him home on for his pneumonia, he asked if any of them worked for Lyme. I discussed that while doxycycline does work for Lyme, generally post Lyme syndrome is not thought to be an ongoing active infection, but rather more of an inflammatory/immune system response creating a mild version of an autoimmune-like syndrome. We discussed that there is even research showing a glycopeptide present in the serum of patients with a post Lyme syndrome suggesting that may be this is what creates the immune response. Discussed that at this point there is really no specific treatment, Plaquenil has been used off label and statistically speaking has had no benefit although studies are small, also discussed that generally speaking post Lyme syndrome seems to be a self-limited problem that resolves in anywhere between 6 months to 5 years for the majority of people. Total Time Total Time Spent Total Time Spent (In Minutes): Greater than 30 Discharge Plan Discharge Items Patient Disposition: Home - Self-Care Reason For Visit: PNEUMONIA/CHF Discharge Diagnosis: pneumonia Activity: Resume your previous activity Non-emergency contact: Primary Care Provider and Business Support Coordinator Call non-emergency contact if: you have any medication questions, your symptoms worsen and you have a fever Follow-up/Referrals: Leonor Day, [Primary Care Provider] - 06/17/19 1:00 pm (Please, follow up at Dr. Day's office with her associate, Sole Mcleod PA-C, on ThursdayJune 17 at 1:00 pm. *If you need to change this appointment, call their office at [phone].) Diet: Low Sodium (2gm) Addtl Attending Provider Instructions: Pneumonia -Fortunately this improved quite nicely, and actually when the respiratory therapists walked you there was not the need for oxygen. -Continue to follow your oxygen numbers at home, certainly if you are seeing anything consistently under 90% we would want to be seen right away, but it appears that if you take it easy that is not likely to happen. -We will treat for 7 days with antibioticsdoxycycline 100 mg twice a day for 11 more doses (next dose tonight), and cefdinir 300mg twice a day for 10 more doses (next dose tomorrow morning) -As you are getting better, if it seems like things are moving more slowly than it appears right now, your primary care doctor may need to extend the course of antibiotics but this does not seem likely. Congestive heart failure -As is frequently the case, when someone is sick with a metabolically stressful illness like a pneumonia, fluid will get back up from congestive heart failure. Fortunately this improved quite nicely, and you appear may be a little bit dry based on your lab work. -Continue your regular home medications, and we would simply recommend that you have lab work (basic metabolic panel) checked or Thursday at your primary care physician's office so that they can continue to track what your numbers are looking like. Lyme -As we discussed, chronic Lyme as an actual ongoing infection does not appear to be plausible, but when reviewing the medical literature about patients with symptoms after Lyme, there does appear to be a very real "post Lyme syndrom e"the working theory is that because people after Lyme who have these types of syndromes have a protein floating around in their bloodstream for a while, it seems that may be the symptoms are from an angry immune system response to that protein creating a bit of a "fake" autoimmune syndrome. As we discussed, the good news is that most people with this syndrome have it burned itself out, the downside being it can be anywhere from 6 months to 5 years, but that people do usually improve. Also as we discussed, a fairly mild lupus medicine called Plaquenil has been used from time to time in people with post Lyme syndrome. The research does not support a benefit from this, but the research has been done on a fairly limited population of patients, so while it would be "off label" it would be something reasonable to discuss with your primary care physician. Pending Studies at Discharge: No Stand-Alone Forms: My [facility] Medications and DC Order Prescriptions: New doxycycline hyclate 100 mg capsule 100 mg PO BID 5 Days Qty: 11 RF: 0 cefdinir 300 mg capsule 300 mg PO BID 5 Days Qty: 10 RF: 0 Continued metolazone 2.5 mg tablet 2.5 mg PO DAILY PRN (Reason: Fluid Retention) Qty: 90 RF: 1 nitroglycerin 400 mcg/spray spray,non-aerosol 1 sprays SL .COMPLEX PRN (Reason: chest pain) Qty: 4.9 RF: 0 Xarelto 20 mg tablet 20 mg PO DAILY Qty: 30 RF: 0 metoprolol succinate 25 mg tablet extended release 24 hr 25 mg PO DAILY Qty: 90 RF: 0 furosemide [Lasix] 40 mg tablet 40 mg PO BID Qty: 180 RF: 0 potassium chloride 20 mEq tablet extended release 20 meq PO DAILY Qty: 90 RF: 0 Entresto 24-26 mg tablet 1 tab PO BID Qty: 180 RF: 0 glipizide 5 mg tablet 5 mg PO DAILY Qty: 90 RF: 0 cholecalciferol (vitamin D3) 50,000 unit capsule 50,000 units PO .QOTHER WEEK RF: 0 aspirin [Aspir-81] 81 mg Tablet,Delayed Release (Dr/Ec) 81 mg PO DAILY RF: 0 omega 2-uqg-iyk-fish oil [Fish Oil] 1,000 mg (120 mg-180 mg) Capsule 1 cap PO DAILY RF: 0 Discharge Orders: Discharge Order (Routine); Ordered 06/13/19 Ordered By: Nam Wray/Other Patient Handouts: Heart Failure, Pneumonia Dc Admission Data Admit Date/Time: 06/11/19 19:46 Attending Provider: Nam Zimmerman Admit Provider: John Flores Primary Care Provider: Leonor Day Other Providers: John Flores Other Interventions: Discharge Summary Assessment (RN) Last Done: 06/13/19 12:23 DC Date/Time DO NOT enter until pt leaves facility: 06/13/19 14:00
== END 2019-06-13 14:00 | disposition home or self-care (01) | DRG 193 ==
LOC: ED 16:55 → SUATTDRO 19:46 → 2S 19:46 → 3W 06-12 18:40

== ENCOUNTER 2019-08-20 17:35 | Inpatient (IN) ==
[2019-08-20] MEDS ORDERED: D5W AND NSS 1,000 ML IV STA (17:59)
[2019-08-20 18:08] LABS: Basophils # (auto) 0.01 K/uL (0-0.2); Basophils % (auto) 0.1 %; Hematocrit (blood only) 40.1 % (42-52); Hemoglobin 13.4 g/dL (14.0-18.0); Immature Granulocytes # (auto) 0.02 K/uL (0.00-0.02); Immature Granulocytes % (auto) 0.2 %; Lymphocytes # (auto) 0.31 K/uL (1.2-3.4); Lymphocytes % (auto) 3.1 %; Mean Corpuscular Hemoglobin 31.8 pg (25-34); Mean Corpuscular Hgb Conc 33.4 g/dL (32-36); Mean Corpuscular Volume 95.2 fL (80-100); Mean Platelet Volume 10.4 fL (7.4-10.4); Monocytes # (auto) 0.65 K/uL (0.11-0.59); Monocytes % (auto) 6.4 %; Neutrophils # (auto) 9.15 K/uL (1.4-6.5); Neutrophils % (auto) 90.2 %; Platelet Count 491 K/uL (130-400); RDW Standard Deviation 62.9 fL (36.4-46.3); Red Blood Count 4.21 M/uL (4.7-6.1); White Blood Count 10.14 K/uL (4.8-10.8)
[2019-08-20 18:22] LABS: BUN Creatinine Ratio 33.6 (10-20); Blood Urea Nitrogen 65 mg/dl (7-18); Carbon Dioxide 25 mmol/L (21-32); Chloride 98 mmol/L (98-107); Est GFR (African American) 38.1; Est GFR (Non-African American) 32.9; Glucose 45 mg/dl (70-99); Magnesium 2.4 mg/dl (1.8-2.4); Potassium 4.5 mmol/L (3.5-5.1); Sodium 132 mmol/L (136-145)
[2019-08-20 18:25] LABS: Troponin I 0.055 ng/ml (0-0.045)
[2019-08-20 18:34] LABS: Influenza B virus by PCR Neg for Influ B (Neg)
--- NOTE | 2019-08-20 18:36 | XRay Report ---
XR chest 1V portable CLINICAL HISTORY: 73 years-old Male presenting with sob. TECHNIQUE: Portable upright AP view of the chest was obtained. COMPARISON: 06/11/2019. FINDINGS: Right subclavian implanted cardiac defibrillator with leads in the right atrium, right ventricular ap ex, and coronary sinus. Several external leads also overlie the thorax. Cardiac silhouette moderately enlarged as on prior exam. Pulmonary vascular prominence and interstiti al prominence similar to prior exam. Mildly low lung volumes with slight elevation of the hemidiaphra gms, similar to prior. Patchy added density of the lungs. No large effusion or pneumothorax. Osseous structures normal. Upper abdomen normal. IMPRESSION: 1. Cardiomegaly with volume overload and congestive change similar to prior exam. Mild pulmonary ivy ma is suspected. ACT 112: Negative or not required by law. Electronically signed by: Hong Templeton M.D. 08/20/2019 6:34 PM
[2019-08-20] MEDS ORDERED: DEXTROSE 50% 50 ML SYRINGE IV ONE (18:50)
[2019-08-20] MEDS ORDERED: OCTREOTIDE ACETATE 100 MCG/ML VIAL SQ STA (18:50)
[2019-08-20] MEDS ORDERED: VANCOMYCIN CONSULT ACTIVE PRN (18:50)
[2019-08-20] MEDS ORDERED: VANCOMYCIN HCL 1,750 MG in SODIUM CHLORIDE 0.9% 500 ML IV ONE (18:50)
[2019-08-20] MEDS ORDERED: AZTREONAM 2,000 MG in DEXTROSE 5% 100 ML IV SCH (19:00)
--- NOTE | 2019-08-20 19:05 | Emergency Department Note ---
Entered by Lavell Phillip acting as a scribe for History of Present Illness General Chief complaint: Hypoglycemia Stated complaint: PALE,SHAKY, LOW BLOOD SUGAR Time Seen by Provider: 08/20/19 17:51 Source: patient History of Present Illness Provider complaint: Hypoglycemia Onset (ago): hour(s) 2 Location: head Pain Consistency: + constant Relieved By: + none Associated symptoms: + other (Shaky ) The patient is a 73 year old male who presents to the Emergency Room with complaints of constant hypoglycemia which he noticed today about 2 hours ago. The patient states he decided to check his sugar because he felt very shaky. The patient reports his sugar at home was 59 after eating half a PB&J, crackers, and drinking juice. The patient adds that he is on Glipizide 5mg per day, which he takes every morning. The patient states he has had this same dose for the past year and has not had any recent changes. He also denies accidentally taking too many. The patient endorses some shortness of breath but notes this started about 2 days ago and he is on Zithromax. The patient also has had diarrhea since the onset of the shortness of breath. The patient denies any hematochezia, melena, or chest pain. Home Medications Home Medications Medication Instructions Recorded Confirmed Type furosemide 40 mg tablet 40 mg PO BID #180 tab 03/17/19 08/20/19 Rx metoprolol succinate 25 mg 25 mg PO DAILY #90 tab 03/17/19 08/20/19 Rx tablet,extended release 24 hr nitroglycerin 400 mcg/spray 1 sprays SL .COMPLEX PRN #4.9 gm 03/17/19 08/20/19 Rx translingual potassium chloride 20 mEq 20 meq PO DAILY #90 tab 03/17/19 08/20/19 Rx tablet,extended release aspirin [Aspir-81] 81 mg PO DAILY 06/11/19 08/20/19 History ferrous sulfate 325 mg (65 mg 325 mg PO DAILY 07/19/19 08/20/19 History iron) tablet sacubitril 24 mg-valsartan 26 mg 1 tab PO BID #180 tab 07/25/19 08/20/19 Rx tablet rivaroxaban 15 mg tablet 15 mg PO QPM 08/04/19 08/20/19 History cholecalciferol (vitamin D3) 5,000 50,000 units PO DAILY cap 08/09/19 08/20/19 History unit capsule fluticasone fur. 100 mcg-umeclid 1 puffs INH DAILY #28 ea 08/09/19 08/20/19 Rx 62.5 mcg-vilant 25 mcg inhalat.powder glipizide 5 mg tablet 5 mg PO DAILY #90 tab 08/12/19 08/20/19 Rx metolazone 2.5 mg tablet 2.5 mg PO DAILY tab 08/17/19 08/20/19 History azithromycin 500 mg tablet 500 mg PO DAILY 5 Days #5 tab 08/18/19 08/20/19 Rx oseltamivir 75 mg capsule 75 mg PO DAILY 14 Days #14 cap 08/19/19 08/20/19 Rx loperamide [Imodium A-D] 2 mg PO DIRECTED PRN 08/20/19 08/20/19 History Allergies Allergy/AdvReac Type Severity Reaction Status Date / Time Ccfdsix-Niz-Gpk Reductase Allergy Intermediate myalgia Verified 08/20/19 18:24 Inhibitor bee venom protein (honey bee) Allergy Unknown yellow Verified 08/20/19 18:24 jacket Penicillins Allergy Unknown Unknown Verified 08/20/19 18:24 levofloxacin AdvReac Intermediate nightmares Verified 08/20/19 18:24 Past Med/Surg History Medical History Acute on chronic systolic congestive heart failure (Resolved) Anemia Arteriosclerotic cardiovascular disease (Acute) Atrial fibrillation (Chronic) Central hypothyroidism (Acute) Chronic kidney disease, stage 3 (moderate) (Chronic) Chronic systolic congestive heart failure (Acute) 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) Dyslipidemia (Acute) Gout (Acute) History of pacemaker Hypertension (Acute) ICD (implantable cardioverter-defibrillator) in place (Acute 09/02/11) Ischemic cardiomyopathy (Acute) Left bundle branch block (LBBB) (Acute) Multinodular goiter (Acute) Old myocardial infarction (Acute) Paroxysmal ventricular tachycardia (Acute) Pneumonia Solitary thyroid nodule (Acute) Vitamin D deficiency (Acute) Surgical History H/O hand surgery L index finger History of ankle surgery S/P foot surgery S/P knee surgery L patella fx repair Family History Father Myocardial infarction Family/Other Heart disease Hypertension Dyslipidemia Other Family history non-contributory Social History Preferred Language: Taiwanese Communication Ability: Effective Visual Impairment: Limited Hearing Ability: Normal 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 and A total of 10 systems reviewed and were otherwise negative Physical Exam Vital Signs Vital Signs - 24 hr 08/20/19 17:39 08/20/19 17:56 08/20/19 18:00 Temperature 36.7 C Temperature Source Oral Pulse Rate 79 75 81 Pulse Rate from SpO2 Sensor Respiratory Rate 18 21 22 Respiratory Effort / Characteristics Non-Labored Respiratory Depth Normal Blood Pressure 92/57 L 90/63 L 87/56 L Blood Pressure Mean 68 74 62 Pulse Oximetry 96 Oxygen Delivery Method Room Air Sepsis Recent Fever Within 48 Hours No Sepsis Action Taken by Nursing No Action Required 08/20/19 18:45 08/20/19 18:46 08/20/19 19:03 Temperature Temperature Source Pulse Rate 71 73 89 Pulse Rate from SpO2 Sensor Respiratory Rate 28 H 28 H 26 H Respiratory Effort / Characteristics Respiratory Depth Blood Pressure 76/48 L 95/56 L Blood Pressure Mean 54 60 Pulse Oximetry Oxygen Delivery Method Sepsis Recent Fever Within 48 Hours Sepsis Action Taken by Nursing 08/20/19 19:18 08/20/19 19:30 08/20/19 19:31 Temperature Temperature Source Pulse Rate 82 78 68 Pulse Rate from SpO2 Sensor 83 79 66 Respiratory Rate 29 H 28 H 30 H Respiratory Effort / Characteristics Respiratory Depth Blood Pressure 93/61 L 80/58 L Blood Pressure Mean 66 64 Pulse Oximetry 95 92 97 Oxygen Delivery Method Sepsis Recent Fever Within 48 Hours Sepsis Action Taken by Nursing 08/20/19 19:34 08/20/19 19:42 08/20/19 19:43 Temperature Temperature Source Pulse Rate 79 71 82 Pulse Rate from SpO2 Sensor 76 71 83 Respiratory Rate 28 H 25 H 24 Respiratory Effort / Characteristics Respiratory Depth Blood Pressure 78/59 L 93/61 L Blood Pressure Mean 66 77 Pulse Oximetry 95 97 92 Oxygen Delivery Method Sepsis Recent Fever Within 48 Hours Sepsis Action Taken by Nursing 08/20/19 19:45 08/20/19 19:56 08/20/19 19:57 Temperature Temperature Source Pulse Rate 76 79 82 Pulse Rate from SpO2 Sensor 77 80 81 Respiratory Rate 27 H 23 37 H Respiratory Effort / Characteristics Respiratory Depth Blood Pressure 76/58 L 86/46 L 82/60 L Blood Pressure Mean 61 72 62 Pulse Oximetry 97 95 95 Oxygen Delivery Method Sepsis Recent Fever Within 48 Hours Sepsis Action Taken by Nursing 08/20/19 20:00 08/20/19 20:01 08/20/19 20:30 Temperature Temperature Source Pulse Rate 78 75 76 Pulse Rate from SpO2 Sensor 77 80 76 Respiratory Rate 37 H 31 H Respiratory Effort / Characteristics Respiratory Depth Blood Pressure 96/63 L 96/61 L Blood Pressure Mean 72 72 Pulse Oximetry 94 95 94 Oxygen Delivery Method Sepsis Recent Fever Within 48 Hours Sepsis Action Taken by Nursing 08/20/19 20:31 Temperature Temperature Source Pulse Rate 76 Pulse Rate from SpO2 Sensor 76 Respiratory Rate Respiratory Effort / Characteristics Respiratory Depth Blood Pressure Blood Pressure Mean Pulse Oximetry 93 Oxygen Delivery Method Sepsis Recent Fever Within 48 Hours Sepsis Action Taken by Nursing GENERAL: He is oriented to person, place, and time. He appears well-developed and well-nourished. He does not appear distressed. HENT: Exam performed. - Head: Normocephalic and atraumatic. - Right Ear: External ear normal. No mastoid tenderness. - Left Ear: External ear normal. No mastoid tenderness. - Mouth/Throat: The oropharynx is clear and moist. No trismus in the jaw. No dental abscesses or uvula swelling. No oropharyngeal exudate or tonsillar abscesses. EYES: Conjunctivae and EOM are normal. Pupils are equal, round, and reactive to light. Right eye exhibits no discharge. Left eye exhibits no discharge. No scleral icterus. NECK: Normal range of motion. Neck supple. No JVD present. No spinous process tenderness present. No carotid bruit present. No rigidity. No tracheal deviation and normal range of motion present. No Brudzinski's sign and no Kernig's sign noted. CV: Normal rate, regular rhythm, normal heart sounds and intact distal pulses. There is no peripheral edema. Palpable radial pulses bue. PULM/CHEST: Effort normal and breath sounds normal. No respiratory distress. No stridor. He has no wheezes. He has rales bilaterally. - Chest Wall: He exhibits no tenderness. Pacemaker in place. ABD: The abdomen is soft. Bowel sounds are normal. He has no distension. No mass is present. There is no tenderness. There is no rebound, no guarding, no Valencia's sign and no tenderness at McBurney's point. Rovsig negative. MUSC/SKEL: Normal range of motion. There is no peripheral edema, tenderness or deformity. LYMPH: No cervical adenopathy. NEURO: He is alert and oriented to person, place, and time. He has normal strength. No cranial nerve deficit or sensory deficit. Coordination and gait normal. GCS eye subscore is 4. GCS verbal subscore is 5. GCS motor subscore is 6. Cerebellar tests wnl. SKIN: Skin is warm and dry. He is not diaphoretic. PSYCH: He has a normal mood and affect. Behavior is normal. Judgment and thought content normal. Course Course 1751: Past medical records reviewed. The patient was evaluated in room B02, and a complete history and physical examination were performed. Patient arrives in the emergency department hypotensive at 92/57. His Accu-Chek on arrival in the room is 50 after eating and drinking in triage. Patient was given a another p.o. sandwich and juice.EMR showed that the patient had a CT done of the chest on 08/18 that showed multilobar airspace opacities in the left lower and upper lobes. Given the patient's hypotension and CT showing infection, there was a possibility concern for sepsis. Given the patient's long cardiac history and poor cardiac output, fluids were given judiciously. Given the hyperglycemia, normal saline or lactated Ringer's will not be started, instead normal saline with dextrose will be started on the patient. 1854: Nursing came to the bedside and informed me that the repeat blood pressure was 76/48. He is alert and oriented x3. The patient ate a turkey sandwich and his blood sugar has not significantly improved despite PO intake. The patient was started on D-5 normal saline given his hypoglycemia. The patient has a severe cardiac history including CHF and LBBB, therefore fluids were given judiciously. Given his hypotension he will be given 500cc bolus. Given that the patient's Accu-Cheks have not improved despite having multiple sandwiches and drinking multiple rounds of juice in the emergency department, there is concern that the patient took too much of his Glipizide given his persistent hypog lycemia as well as his levels not responding. He will be given 1 amp D-50 as well as Octreozide sub-cutaneously. His CXR shows cardiomegaly with mild fluid overload, which is similar to his previous CXR with no significant changes. The patient's Troponin is elevated at 0.055 however it is chronically elevated. His Creat is 1.94, at baseline. His Pro BMP is 7896. He was positive for influenza A. Given the positive flu as well as the CT findings of pneumonia there was concern for staph infection in the lung. The patient will be given Vancomycin for coverage against possible staph infection and Aztreonam given his Penicillin allergy. The patient's lactic acid is still pending and his blood cultures have been sent. 1915: The fluid bolus is being administered. The repeat blood pressure is now 95/65. The patient's lactic acid is 2.3. I discussed the case with Dr. Lee [facility] Hospitalist who agreed to accept the patient for further evaluation in the hospital. Both of us feel the patient would benefit in the ICU. She will contact malt liqu[employer] sales representative to discuss the case. 2004: Dr. Lee states she discussed the case with the malt liquors sales representative. She states to repeat the 500cc of D-5 normal saline. ICU team is evaluating the patient. Accu-Cheks after octreotide was administered have been greater than 150. Consultations Consultation #1: I discussed the case with Dr. Lee [facility] Hospitalist who agreed to accept the patient for further evaluation in the hospital. Both of us feel the patient would benefit in the ICU. She will contact [employer] sales representative to discuss the case. Time: 19:15 Administered Medications Dextrose/Sodium Chloride (D5w And Nss) 1,000 mls @ 125 mls/hr IV .Q8H STA Stop: 08/21/19 01:58 Last Infusion: 08/20/19 20:11 Dose: 0 mls/hr Documented by: [id number] Admin: 08/20/19 18:03 Dose: 125 mls/hr Documented by: [id number] Vancomycin HCl 1,750 mg/ (Sodium Chloride) 535 mls @ 200 mls/hr IV NOW ONE Stop: 08/20/19 21:30 Last Admin: 08/20/19 19:33 Dose: 200 mls/hr Documented by: [id number] Sodium Chloride (Nss 1000ml) 1,000 mls @ 125 mls/hr IV .Q8H YARELY Stop: 08/21/19 04:14 Last Admin: 08/20/19 20:20 Dose: 125 mls/hr Documented by: [id number] Miscellaneous (Patient's Height And/Or Weight Needed) 1 ea N/A Q2H YARELY Stop: 08/21/19 00:16 Last Admin: 08/20/19 20:18 Dose: 1 ea Documented by: [id number] Miscellaneous Information (Consult) 1 ea N/A UD PRN PRN Reason: Consult Stop: 09/19/19 18:49 Last Admin: 08/20/19 20:10 Dose: 1 ea Documented by: [id number] Discontinued Medications Dextrose (Dextrose 50%) 50 ml IV NOW ONE Stop: 08/20/19 18:51 Last Admin: 08/20/19 19:02 Dose: 50 ml Documented by: [id number] Aztreonam 2,000 mg/ Dextrose 110 mls @ 100 mls/hr IV Q8H YARELY; Protocol Stop: 08/27/19 18:59 Last Admin: 08/20/19 19:33 Dose: 100 mls/hr Documented by: [id number] Octreotide Acetate (Sandostatin) 100 mcg SQ NOW STA Stop: 08/20/19 18:51 Last Admin: 08/20/19 19:12 Dose: 100 mcg Documented by: [id number] Critical Care Time Critical Care Time: Yes Total Critical Care Time: 78 I have personally spent greater than 78 minutes of critical care time in the direct management of this patient. This includes bedside care, interpretation of diagnostic studies, and testing, discussion with consultants, patient, and family members, and other required patient management activities. This 78 minutes is in excess of all separately billable procedures. Medical Decision Making Medical Records Attestation: I reviewed the patient's medical records. Home Medications Current Medication List: was personally reviewed by me Laboratory Data Attestation: I reviewed the patient's lab results. Result diagrams: 08/20/19 Unknown 08/20/19 Unknown Lab Results 08/20/19 08/20/19 08/20/19 Range/Units 17:39 17:53 18:05 WBC (4.8-10.8) K/uL RBC (4.7-6.1) M/uL Hgb (14.0-18.0) g/dL Hct (42-52) % MCV (80-100) fL MCH (25-34) pg MCHC (32-36) g/dL RDW Std Deviation (36.4-46.3) fL RDW Coeff of Aliyah (11.5-14.5) % Plt Count (130-400) K/uL MPV (7.4-10.4) fL Immature Gran % (Auto) % Neut % (Auto) % Lymph % (Auto) % [place] % (Auto) % Eos % (Auto) % Baso % (Auto) % Immature Gran # (Auto) (0.00-0.02) K/uL Neut # (Auto) (1.4-6.5) K/uL Lymph # (Auto) (1.2-3.4) K/uL [place] # (Auto) (0.11-0.59) K/uL Eos # (Auto) (0-0.5) K/uL Baso # (Auto) (0-0.2) K/uL PT (9.0-12.0) Seconds INR (0.9-1.1) APTT (21.0-31.0) Seconds PTT Ratio Sodium (136-145) mmol/L Potassium (3.5-5.1) mmol/L Chloride (98-107) mmol/L Carbon Dioxide (21-32) mmol/L Anion Gap (3-11) BUN (7-18) mg/dl Creatinine (0.6-1.4) mg/dl Est Cr Clr Drug Dosing Est GFR ( Amer) Est GFR (Non-Af Amer) BUN/Creatinine Ratio (10-20) Glucose (70-99) mg/dl POC Glucose 59 L* 50 L* (70-99) Lactate (0.4-2.0) mmol/L Calcium (8.5-10.1) mg/dl Magnesium (1.8-2.4) mg/dl Total Bilirubin (0.2-1) mg/dl Direct Bilirubin (0-0.2) mg/dl AST (15-37) U/L ALT (12-78) U/L Alkaline Phosphatase (45-117) U/L Troponin I (0-0.045) ng/ml NT-Pro-B Natriuret Pep (0-900) pg/ml Total Protein (6.4-8.2) gm/dl Albumin (3.4-5.0) gm/dl Influenza Type A (PCR) Pos for Influ A A* (Neg) Influenza Type B (PCR) Neg for Influ B (Neg) 08/20/19 08/20/19 08/20/19 Range/Units 18:28 18:31 18:52 WBC (4.8-10.8) K/uL RBC (4.7-6.1) M/uL Hgb (14.0-18.0) g/dL Hct (42-52) % MCV (80-100) fL MCH (25-34) pg MCHC (32-36) g/dL RDW Std Deviation (36.4-46.3) fL RDW Coeff of Aliyah (11.5-14.5) % Plt Count (130-400) K/uL MPV (7.4-10.4) fL Immature Gran % (Auto) % Neut % (Auto) % Lymph % (Auto) % [place] % (Auto) % Eos % (Auto) % Baso % (Auto) % Immature Gran # (Auto) (0.00-0.02) K/uL Neut # (Auto) (1.4-6.5) K/uL Lymph # (Auto) (1.2-3.4) K/uL [place] # (Auto) (0.11-0.59) K/uL Eos # (Auto) (0-0.5) K/uL Baso # (Auto) (0-0.2) K/uL PT (9.0-12.0) Seconds INR (0.9-1.1) APTT (21.0-31.0) Seconds PTT Ratio Sodium (136-145) mmol/L Potassium (3.5-5.1) mmol/L Chloride (98-107) mmol/L Carbon Dioxide (21-32) mmol/L Anion Gap (3-11) BUN (7-18) mg/dl Creatinine (0.6-1.4) mg/dl Est Cr Clr Drug Dosing Est GFR ( Amer) Est GFR (Non-Af Amer) BUN/Creatinine Ratio (10-20) Glucose (70-99) mg/dl POC Glucose 71 72 (70-99) Lactate 2.3 H* (0.4-2.0) mmol/L Calcium (8.5-10.1) mg/dl Magnesium (1.8-2.4) mg/dl Total Bilirubin (0.2-1) mg/dl Direct Bilirubin (0-0.2) mg/dl AST (15-37) U/L ALT (12-78) U/L Alkaline Phosphatase (45-117) U/L Troponin I (0-0.045) ng/ml NT-Pro-B Natriuret Pep (0-900) pg/ml Total Protein (6.4-8.2) gm/dl Albumin (3.4-5.0) gm/dl Influenza Type A (PCR) (Neg) Influenza Type B (PCR) (Neg) 08/20/19 08/20/19 08/20/19 Range/Units 19:39 19:41 20:20 WBC (4.8-10.8) K/uL RBC (4.7-6.1) M/uL Hgb (14.0-18.0) g/dL Hct (42-52) % MCV (80-100) fL MCH (25-34) pg MCHC (32-36) g/dL RDW Std Deviation (36.4-46.3) fL RDW Coeff of Aliyah (11.5-14.5) % Plt Count (130-400) K/uL MPV (7.4-10.4) fL Immature Gran % (Auto) % Neut % (Auto) % Lymph % (Auto) % [place] % (Auto) % Eos % (Auto) % Baso % (Auto) % Immature Gran # (Auto) (0.00-0.02) K/uL Neut # (Auto) (1.4-6.5) K/uL Lymph # (Auto) (1.2-3.4) K/uL [place] # (Auto) (0.11-0.59) K/uL Eos # (Auto) (0-0.5) K/uL Baso # (Auto) (0-0.2) K/uL PT (9.0-12.0) Seconds INR (0.9-1.1) APTT (21.0-31.0) Seconds PTT Ratio Sodium (136-145) mmol/L Potassium (3.5-5.1) mmol/L Chloride (98-107) mmol/L Carbon Dioxide (21-32) mmol/L Anion Gap (3-11) BUN (7-18) mg/dl Creatinine (0.6-1.4) mg/dl Est Cr Clr Drug Dosing Est GFR ( Amer) Est GFR (Non-Af Amer) BUN/Creatinine Ratio (10-20) Glucose (70-99) mg/dl POC Glucose 205 H 191 H (70-99) Lactate 5.5 H* (0.4-2.0) mmol/L Calcium (8.5-10.1) mg/dl Magnesium (1.8-2.4) mg/dl Total Bilirubin (0.2-1) mg/dl Direct Bilirubin (0-0.2) mg/dl AST (15-37) U/L ALT (12-78) U/L Alkaline Phosphatase (45-117) U/L Troponin I (0-0.045) ng/ml NT-Pro-B Natriuret Pep (0-900) pg/ml Total Protein (6.4-8.2) gm/dl Albumin (3.4-5.0) gm/dl Influenza Type A (PCR) (Neg) Influenza Type B (PCR) (Neg) 08/20/19 08/20/19 08/20/19 Range/Units 20:25 Unknown Unknown WBC 10.14 (4.8-10.8) K/uL RBC 4.21 L (4.7-6.1) M/uL Hgb 13.4 L (14.0-18.0) g/dL Hct 40.1 L (42-52) % MCV 95.2 (80-100) fL MCH 31.8 (25-34) pg MCHC 33.4 (32-36) g/dL RDW Std Deviation 62.9 H (36.4-46.3) fL RDW Coeff of Aliyah 18.0 H (11.5-14.5) % Plt Count 491 H (130-400) K/uL MPV 10.4 (7.4-10.4) fL Immature Gran % (Auto) 0.2 % Neut % (Auto) 90.2 % Lymph % (Auto) 3.1 % [place] % (Auto) 6.4 % Eos % (Auto) 0.0 % Baso % (Auto) 0.1 % Immature Gran # (Auto) 0.02 (0.00-0.02) K/uL Neut # (Auto) 9.15 H (1.4-6.5) K/uL Lymph # (Auto) 0.31 L (1.2-3.4) K/uL [place] # (Auto) 0.65 H (0.11-0.59) K/uL Eos # (Auto) 0.00 (0-0.5) K/uL Baso # (Auto) 0.01 (0-0.2) K/uL PT (9.0-12.0) Seconds INR (0.9-1.1) APTT (21.0-31.0) Seconds PTT Ratio Sodium 132 L (136-145) mmol/L Potassium 4.5 (3.5-5.1) mmol/L Chloride 98 (98-107) mmol/L Carbon Dioxide 25 (21-32) mmol/L Anion Gap 8.0 (3-11) BUN 65 H (7-18) mg/dl Creatinine 1.94 H (0.6-1.4) mg/dl Est Cr Clr Drug Dosing Not Reportable Est GFR ( Amer) 38.1 Est GFR (Non-Af Amer) 32.9 BUN/Creatinine Ratio 33.6 H (10-20) Glucose 45 L* (70-99) mg/dl POC Glucose 167 H (70-99) Lactate (0.4-2.0) mmol/L Calcium 9.0 (8.5-10.1) mg/dl Magnesium 2.4 (1.8-2.4) mg/dl Total Bilirubin (0.2-1) mg/dl Direct Bilirubin (0-0.2) mg/dl AST (15-37) U/L ALT (12-78) U/L Alkaline Phosphatase (45-117) U/L Troponin I 0.055 H* (0-0.045) ng/ml NT-Pro-B Natriuret Pep (0-900) pg/ml Total Protein (6.4-8.2) gm/dl Albumin (3.4-5.0) gm/dl Influenza Type A (PCR) (Neg) Influenza Type B (PCR) (Neg) 08/20/19 08/20/19 08/20/19 Range/Units Unknown Unknown Unknown WBC (4.8-10.8) K/uL RBC (4.7-6.1) M/uL Hgb (14.0-18.0) g/dL Hct (42-52) % MCV (80-100) fL MCH (25-34) pg MCHC (32-36) g/dL RDW Std Deviation (36.4-46.3) fL RDW Coeff of Aliyah (11.5-14.5) % Plt Count (130-400) K/uL MPV (7.4-10.4) fL Immature Gran % (Auto) % Neut % (Auto) % Lymph % (Auto) % [place] % (Auto) % Eos % (Auto) % Baso % (Auto) % Immature Gran # (Auto) (0.00-0.02) K/uL Neut # (Auto) (1.4-6.5) K/uL Lymph # (Auto) (1.2-3.4) K/uL [place] # (Auto) (0.11-0.59) K/uL Eos # (Auto) (0-0.5) K/uL Baso # (Auto) (0-0.2) K/uL PT 12.9 H (9.0-12.0) Seconds INR 1.3 H (0.9-1.1) APTT 32.8 H (21.0-31.0) Seconds PTT Ratio 1.2 Sodium (136-145) mmol/L Potassium (3.5-5.1) mmol/L Chloride (98-107) mmol/L Carbon Dioxide (21-32) mmol/L Anion Gap (3-11) BUN (7-18) mg/dl Creatinine (0.6-1.4) mg/dl Est Cr Clr Drug Dosing Est GFR ( Amer) Est GFR (Non-Af Amer) BUN/Creatinine Ratio (10-20) Glucose (70-99) mg/dl POC Glucose (70-99) Lactate (0.4-2.0) mmol/L Calcium (8.5-10.1) mg/dl Magnesium (1.8-2.4) mg/dl Total Bilirubin 1.2 H (0.2-1) mg/dl Direct Bilirubin 0.5 H (0-0.2) mg/dl AST 80 H (15-37) U/L ALT 49 (12-78) U/L Alkaline Phosphatase 76 (45-117) U/L Troponin I (0-0.045) ng/ml NT-Pro-B Natriuret Pep 7896 H (0-900) pg/ml Total Protein 8.2 (6.4-8.2) gm/dl Albumin 3.5 (3.4-5.0) gm/dl Influenza Type A (PCR) (Neg) Influenza Type B (PCR) (Neg) Imaging Data Radiologist's Impression: Radiology results as stated below per my review and the radiologist's interpretation: XR chest 1V portable CLINICAL HISTORY: 73 years-old Male presenting with sob. TECHNIQUE: Portable upright AP view of the chest was obtained. COMPARISON: 06/11/2019. FINDINGS: Right subclavian implanted cardiac defibrillator with leads in the right atrium, right ventricular apex, and coronary sinus. Several external leads also overlie the thorax. Cardiac silhouette moderately enlarged as on prior exam. Pulmonary vascular prominence and interstitial prominence similar to prior exam. Mildly low lung volumes with slight elevation of the hemidiaphragms, similar to prior. Patchy added density of the lungs. No large effusion or pneumothorax. Osseous structures normal. Upper abdomen normal. IMPRESSION: 1. Cardiomegaly with volume overload and congestive change similar to prior exam. Mild pulmonary edema is suspected. ACT 112: Negative or not required by law. Electronically signed by: Hong Templeton M.D. 08/20/2019 6:34 PM ECG Data Attestation: I personally reviewed and interpreted this ECG as follows: Indication: + weakness Rate (beats per minute): 78 Rhythm: + other (Paced rhythm ) ECG Intervals/blocks: + Normal QRS (138) and + Normal QT-c (414) ECG Findings: no PACs and no PVCs Blood Pressure Blood Pressure Findings: Low blood pressure Blood Pressure Disposition: further management by hospitalist LEMUEL Narrative 1751: Past medical records reviewed. The patient was evaluated in room B02, and a complete history and physical examination were performed. Patient arrives in the emergency department hypotensive at 92/57. His Accu-Chek on arrival in the room is 50 after eating and drinking in triage. Patient was given a another p.o. sandwich and juice.EMR showed that the patient had a CT done of the chest on 08/18 that showed multilobar airspace opacities in the left lower and upper lobes. Given the patient's hypotension and CT showing infection, there was a possibility concern for sepsis. Given the patient's long cardiac history and poor cardiac output, fluids were given judiciously. Given the hyperglycemia, normal saline or lactated Ringer's will not be started, instead normal saline with dextrose will be started on the patient. 1854: Nursing came to the bedside and informed me that the repeat blood pressure was 76/48. He is alert and oriented x3. The patient ate a turkey sandwich and his blood sugar has not significantly improved despite PO intake. The patient was started on D-5 normal saline given his hypoglycemia. The patient has a severe cardiac history including CHF and LBBB, therefore fluids were given judiciously. Given his hypotension he will be given 500cc bolus. Given that the patient's Accu-Cheks have not improved despite having multiple sandwiches and dr inking multiple rounds of juice in the emergency department, there is concern that the patient took too much of his Glipizide given his persistent hypoglycemia as well as his levels not responding. He will be given 1 amp D-50 as well as Octreozide sub-cutaneously. His CXR shows cardiomegaly with mild fluid overload, which is similar to his previous CXR with no significant changes. The patient's Troponin is elevated at 0.055 however it is chronically elevated. His Creat is 1.94, at baseline. His Pro BMP is 7896. He was positive for influenza A. Given the positive flu as well as the CT findings of pneumonia there was concern for staph infection in the lung. The patient will be given Vancomycin for coverage against possible staph infection and Aztreonam given his Penicillin allergy. The patient's lactic acid is still pending and his blood cultures have been sent. 1914: The fluid bolus is being administered. The repeat blood pressure is now 95/65. The patient's lactic acid is 2.3. I discussed the case with Dr. Lee - [facility] Hospitalist who agreed to accept the patient for further evaluation in the hospital. Both of us feel the patient would benefit in the ICU. She will contact malt liquors sales representative to discuss the case. 2003: Dr. Lee states she discussed the case with the malt liquors sales representative. She states to repeat the 500cc of D-5 normal saline. ICU team is evaluating the patient. Accu-Cheks after octreotide was administered have been greater than 150. Impression & Plan Sepsis, Pneumonia, Hypoglycemia, CHF (congestive heart failure), Sulfonylurea poisoning, Influenza A Discharge Plan Visit Data *Final* Discharge Date/Time: 08/20/19 20:35 Chief Complaint: Hypoglycemia Stated Complaint: PALE,SHAKY, LOW BLOOD SUGAR ED Provider: Eze Da Silva Discharge Problem: Sepsis, Pneumonia, Hypoglycemia, CHF (congestive heart failure), Sulfonylurea poisoning, Influenza A Patient Disposition: Admitted As Inpatient Discharge Instructions Interventions: ED Discharge Assessment Last Done: 08/20/19 20:35 Discharge Problem: Sepsis Qualifiers: Sepsis type: sepsis due to unspecified organism Sepsis acute organ dysfunction status: unspecified Qualified Code(s): A41.9 - Sepsis, unspecified organism Pneumonia Qualifiers: Pneumonia type: due to unspecified organism Laterality: left Lung location: unspecified part of lung Qualified Code(s): J18.9 - Pneumonia, unspecified organism CHF (congestive heart failure) Qualifiers: Heart failure type: unspecified Heart failure chronicity: acute on chronic Qualified Code(s): I50.9 - Heart failure, unspecified Sulfonylurea poisoning Qualifiers: Encounter type: initial encounter Injury intent: accidental or unintentional Qualified Code(s): T38.3X1A - Poisoning by insulin and oral hypoglycemic [antidiabetic] drugs, accidental (unintentional), initial encounter The scribe's documentation has been prepared under my direction and personally reviewed by me in its entirety. I confirm that the note above accurately reflects all work, treatment, procedures, and medical decision making performed by me.
[2019-08-20 19:24] LABS: INR 1.3 (0.9-1.1); Partial Thromboplastin Ratio 1.2; Partial Thromboplastin Time 32.8 Seconds (21.0-31.0); Prothrombin Time 12.9 Seconds (9.0-12.0)
[2019-08-20 19:27] LABS: Albumin Level 3.5 gm/dl (3.4-5.0); Bilirubin Direct 0.5 mg/dl (0-0.2); Bilirubin,Total 1.2 mg/dl (0.2-1); Total Protein 8.2 gm/dl (6.4-8.2)
[2019-08-20] MEDS ORDERED: PATIENT'S HEIGHT AND/OR WEIGHT NEEDED SCH (20:15)
[2019-08-20] MEDS ORDERED: SODIUM CHLORIDE 0.9% 1000ML 1,000 ML IV SCH (20:15)
--- NOTE | 2019-08-20 20:23 | History & Physical Report ---
Date of Service August 20, 2019 Assessment & Plan (1) Influenza A: 73-year-old male was admitted on 20 August 2019 for hypoglycemia, hypotension, and Influenza A. Influenza A positive, multifocal pneumonia, hypotension, sepsis : Recently placed on azithromycin and Tamiflu. See cardiac history below. Not in acute respiratory distress, though. - In ED, afebrile, not tachycardic, is tachypneic, hypotensive lowest 76/48, but normal room SpO2. WBC 10, platelets 491, lactate 2.3. TnI 0.055. EKG is a ventricularly-paced rhythm. Blood cultures sent. Positive for Influenza A. pCXR notable for cardiomegaly with volume overload and congestive changes similar to previous exam. Also see prior CT chest on c suggestive of multifocal pneumonia. - In ED, given judicious IVF. Started on aztreonam and vancomycin. Some improvement in BP. - Will hold home Lasix, metolazone, metoprolol, and Entresto given hypotension. Continue judicious fluids (not quite the bolus 2.6 L which would be 30 mL/kg) given his heart failure. Treat his wheezing with duonebs scheduled, albuterol prn, and solumedrol 40 mg IV q12h. Trend TnI and recheck lactate. Check urine legionella and nasal MRSA. Continue aztreonam, vancomycin, and Tamiflu. Hypoglycemia: Symptomatic hypoglycemia, likely related to sepsis. Lowest in ED was glucose 45. - In ED, given dextrose and octreotide. Improved to 72. - Will be on ICU insulin protocol. Diarrhea: Loose non-bloody stools noted over past two weeks. Denies abd pain. May be related to antibiotics. Will check a C. difficile. Acute on chronic renal failure: Admit Cr 1.94 (most recently 1.54) and BUN 65. Likely pre-renal. Provided some IVF in ED. Will have issues with balance between hypotension + CHF + pulmonary edema. Hyponatremia: Admit sodium 132. Receiving fluids as above, monitoring. Ongoing medical issues: - HTN, HLD, systolic CHF, ischemic cardiomyopathy, prior KS, parox. V tach: Dry weight around 193 lbs. TTE in May 2019 was EF 20-25%, severely reduced LV SF, large area of akinesis (see full report). - Cough, dyspnea: Followed by pulmonology. Recently prescribed Trilogy. - Paroxysmal a fib: On xarelto. - Anemia: Admit Hb 13.4 with recent comparisons in 9-11 range. Continue home iron. - Diabetes type 2: At home is on glipizide. We will keep on ICU insulin protocol. - History of Lyme disease: Positive on testing in December 2018. Code status: Full code (brief discussion with patient about this). Diet: NPO overnight while monitoring hypotension. DVT prophy: Xarelto. PT/OT: Deferred. Disbo: Admit to ICU. Critically ill. (2) Pneumonia: (3) Hypotension: (4) Sepsis: (5) Hypoglycemia: (6) Diarrhea: (7) Acute on chronic renal failure: (8) Hyponatremia: (9) Hypertension: (10) Dyslipidemia: (11) CHF (congestive heart failure): (12) Ischemic cardiomyopathy: (13) Left bundle branch block (LBBB): (14) Cough: (15) Dyspnea: (16) Paroxysmal ventricular tachycardia: (17) Atrial fibrillation: (18) Anemia: (19) Diabetes mellitus type 2 with complications: History of Present Illness Primary Care Provider: Leonor Day DO 73-year-old male presented to the emergency room complaining of hypoglycemic episodes. And felt shaky earlier today. Home blood sugar was 59. Was able to tolerate food without any emesis. Is on glipizide normally and has not missed any doses. Otherwise, he has no overt concerns. - Of note, patient recently has been treated for pneumonia. He is followed by pulmonology who obtained a CT scan a couple days ago suggestive of multifocal pneumonia. Has been on azithromycin for 2 days. Presently he denies any overt shortness of breath, pleuritic pain, or chest pain. - Patient's is currently an inpatient with influenza. He was started on Tamiflu on day prior to admit for prophylaxis. - Patient also notes on review of systems having loose nonbloody stools for the past 2 weeks. Patient attributes it to recent antibiotics. Denies any overt abdominal pain. - Past medical history includes hypertension, hyperlipidemia, systolic congestive heart failure, ischemic cardiomyopathy, paroxysmal ventricular tachycardia with ICD, pneumonia (May 2019), "chronic Lyme disease", anemia, CKD stage III, diabetes type 2, gout, left bundle branch block, goiter, vitamin D deficiency - Past surgical history includes hand, ankle, foot, and knee surgery. - Social history includes former 30-40 pack/year smoker. Drinks wine. Lives at home with spouse. Allergies Allergy/AdvReac Type Severity Reaction Status Date / Time Rabufww-Wap-Exh Reductase Allergy Intermediate myalgia Verified 08/20/19 18:24 Inhibitor bee venom protein (honey bee) Allergy Unknown yellow Verified 08/20/19 18:24 jacket Penicillins Allergy Unknown Unknown Verified 08/20/19 18:24 levofloxacin AdvReac Intermediate nightmares Verified 08/20/19 18:24 Home Medications Home Medications Medication Instructions Recorded Confirmed Type furosemide 40 mg tablet 40 mg PO BID #180 tab 03/17/19 08/20/19 Rx metoprolol succinate 25 mg 25 mg PO DAILY #90 tab 03/17/19 08/20/19 Rx tablet,extended release 24 hr nitroglycerin 400 mcg/spray 1 sprays SL .COMPLEX PRN #4.9 gm 03/17/19 08/20/19 Rx translingual potassium chloride 20 mEq 20 meq PO DAILY #90 tab 03/17/19 08/20/19 Rx tablet,extended release aspirin [Aspir-81] 81 mg PO DAILY 06/11/19 08/20/19 History ferrous sulfate 325 mg (65 mg 325 mg PO DAILY 07/19/19 08/20/19 History iron) tablet sacubitril 24 mg-valsartan 26 mg 1 tab PO BID #180 tab 07/25/19 08/20/19 Rx tablet rivaroxaban 15 mg tablet 15 mg PO QPM 08/04/19 08/20/19 History cholecalciferol (vitamin D3) 5,000 5,000 units PO DAILY cap 08/09/19 08/20/19 History unit capsule fluticasone fur. 100 mcg-umeclid 1 puffs INH DAILY #28 ea 08/09/19 08/20/19 Rx 62.5 mcg-vilant 25 mcg inhalat.powder glipizide 5 mg tablet 5 mg PO DAILY #90 tab 08/12/19 08/20/19 Rx metolazone 2.5 mg tablet 2.5 mg PO DAILY tab 08/17/19 08/20/19 History azithromycin 500 mg tablet 500 mg PO DAILY 5 Days #5 tab 08/18/19 08/20/19 Rx oseltamivir 75 mg capsule 75 mg PO DAILY 14 Days #14 cap 08/19/19 08/20/19 Rx loperamide [Imodium A-D] 2 mg PO DIRECTED PRN 08/20/19 08/20/19 History Past Med/Surg History Medical History Acute on chronic systolic congestive heart failure (Resolved) Anemia Arteriosclerotic cardiovascular disease (Acute) Atrial fibrillation (Chronic) Central hypothyroidism (Acute) Chronic kidney disease, stage 3 (moderate) (Chronic) Chronic systolic congestive heart failure (Acute) 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) Dyslipidemia (Acute) Gout (Acute) History of pacemaker Hypertension (Acute) ICD (implantable cardioverter-defibrillator) in place (Acute 09/02/11) Ischemic cardiomyopathy (Acute) Left bundle branch block (LBBB) (Acute) Multinodular goiter (Acute) Old myocardial infarction (Acute) Paroxysmal ventricular tachycardia (Acute) Pneumonia Solitary thyroid nodule (Acute) Vitamin D deficiency (Acute) Surgical History H/O hand surgery L index finger History of ankle surgery S/P foot surgery S/P knee surgery L patella fx repair Family History Father Myocardial infarction Family/Other Heart disease Hypertension Dyslipidemia Other Family history non-contributory Social History Preferred Language: Vietnamese Communication Ability: Effective Visual Impairment: Limited Hearing Ability: Normal Asic Verification Engineer Required: No Beliefs That Will Affect Care: None marital status: Current Living Situation: Spouse current occupational status: retired Other Information That Helps Us Care for You: No Feels Safe at Home: Yes Safety Concerns: Feels Safe At This Time Smoking Status: Unknown if ever smoked Hx Alcohol Use: No Hx Substance Use: No Childhood Exposure to Second-Hand Smoke: Yes caffeine: No during the past year weight has: remained stable Dental Care, Regularly: Yes Physical Activity Frequency: Does not Exercise Seatbelt Use: always Sunscreen Use: Yes Review of Systems Review of Systems: Constitutional: Denies fevers, chills, focal weakness Eyes: Denies any visual loss or diplopia ENT: Denies any ear/nose/throat pain or difficulty speaking or swallowing Respiratory: Positive cough. Denies dyspnea or hemoptysis. Cardiovascular: Denies any chest pain or feeling of edema Gastrointestinal: Denies any abdominal pain, nausea/vomiting. Positive diarrhea. Musculoskeletal: Denies any acute extremity pains, myalgias, or focal weakness Skin: Denies any known acute rashes or lesions Neuro: Denies any headache, acute focal weakness or numbness, or difficulties with speech or swallow. Physical Exam Physical Exam: GENERAL: Awake, alert, appears remarkably well given his clinical picture, does not appear in acute distress (respiratory or otherwise). HENT: Normocephalic, atraumatic. Oropharynx unremarkable. EYES: Normal conjunctiva. Sclera non-icteric. NECK: Inspection normal. Supple and full ROM. No nuchal rigidity. CARDIAC: +S1S2 RRR, no murmurs. Pacemaker in chest. RESPIRATORY: Diffuse inspiratory and expiratory wheezing throughout. No appreciable rales. No present cough in room. Is on room air. GI: +BS, soft, non-distended. No tenderness to palpation. No rebound or guarding. EXTREMITIES: No pedal edema or calf tenderness. Moving all extremities naturally and easily. NEURO: No gross neuro deficits. Results & Data Vital Signs (Past 12 Hours) Vital Signs Temp Pulse Resp BP Pulse Ox 08/20/19 20:01 75 31 H 95 08/20/19 20:00 78 37 H 96/63 L 94 08/20/19 19:57 82 37 H 82/60 L 95 08/20/19 19:56 79 23 86/46 L 95 08/20/19 19:45 76 27 H 76/58 L 97 08/20/19 19:43 82 24 92 08/20/19 19:42 71 25 H 93/61 L 97 08/20/19 19:34 79 28 H 78/59 L 95 08/20/19 19:31 68 30 H 97 08/20/19 19:30 78 28 H 80/58 L 92 08/20/19 19:18 82 29 H 93/61 L 95 08/20/19 19:03 89 26 H 95/56 L 08/20/19 18:46 73 28 H 08/20/19 18:45 71 28 H 76/48 L 08/20/19 18:00 81 22 87/56 L 08/20/19 17:56 75 21 90/63 L 08/20/19 17:39 36.7 C 79 18 92/57 L 96 Laboratory Results 08/20/19 08/20/19 08/20/19 Range/Units Unknown Unknown Unknown WBC (4.8-10.8) K/uL RBC (4.7-6.1) M/uL Hgb (14.0-18.0) g/dL Hct (42-52) % MCV (80-100) fL MCH (25-34) pg MCHC (32-36) g/dL RDW Std Deviation (36.4-46.3) fL RDW Coeff of Aliyah (11.5-14.5) % Plt Count (130-400) K/uL MPV (7.4-10.4) fL Immature Gran % (Auto) % Neut % (Auto) % Lymph % (Auto) % Miner % (Auto) % Eos % (Auto) % Baso % (Auto) % Immature Gran # (Auto) (0.00-0.02) K/uL Neut # (Auto) (1.4-6.5) K/uL Lymph # (Auto) (1.2-3.4) K/uL Miner # (Auto) (0.11-0.59) K/uL Eos # (Auto) (0-0.5) K/uL Baso # (Auto) (0-0.2) K/uL PT 12.9 H (9.0-12.0) Seconds INR 1.3 H (0.9-1.1) APTT 32.8 H (21.0-31.0) Seconds PTT Ratio 1.2 Sodium (136-145) mmol/L Potassium (3.5-5.1) mmol/L Chloride (98-107) mmol/L Carbon Dioxide (21-32) mmol/L Anion Gap (3-11) BUN (7-18) mg/dl Creatinine (0.6-1.4) mg/dl Est Cr Clr Drug Dosing Est GFR ( Amer) Est GFR (Non-Af Amer) BUN/Creatinine Ratio (10-20) Glucose (70-99) mg/dl POC Glucose (70-99) Lactate (0.4-2.0) mmol/L Calcium (8.5-10.1) mg/dl Magnesium (1.8-2.4) mg/dl Total Bilirubin 1.2 H (0.2-1) mg/dl Direct Bilirubin 0.5 H (0-0.2) mg/dl AST 80 H (15-37) U/L ALT 49 (12-78) U/L Alkaline Phosphatase 76 (45-117) U/L Troponin I (0-0.045) ng/ml NT-Pro-B Natriuret Pep 7896 H (0-900) pg/ml Total Protein 8.2 (6.4-8.2) gm/dl Albumin 3.5 (3.4-5.0) gm/dl Influenza Type A (PCR) (Neg) Influenza Type B (PCR) (Neg) 08/20/19 08/20/19 08/20/19 Range/Units Unknown Unknown 18:52 WBC 10.14 (4.8-10.8) K/uL RBC 4.21 L (4.7-6.1) M/uL Hgb 13.4 L (14.0-18.0) g/dL Hct 40.1 L (42-52) % MCV 95.2 (80-100) fL MCH 31.8 (25-34) pg MCHC 33.4 (32-36) g/dL RDW Std Deviation 62.9 H (36.4-46.3) fL RDW Coeff of Aliyah 18.0 H (11.5-14.5) % Plt Count 491 H (130-400) K/uL MPV 10.4 (7.4-10.4) fL Immature Gran % (Auto) 0.2 % Neut % (Auto) 90.2 % Lymph % (Auto) 3.1 % Miner % (Auto) 6.4 % Eos % (Auto) 0.0 % Baso % (Auto) 0.1 % Immature Gran # (Auto) 0.02 (0.00-0.02) K/uL Neut # (Auto) 9.15 H (1.4-6.5) K/uL Lymph # (Auto) 0.31 L (1.2-3.4) K/uL Miner # (Auto) 0.65 H (0.11-0.59) K/uL Eos # (Auto) 0.00 (0-0.5) K/uL Baso # (Auto) 0.01 (0-0.2) K/uL PT (9.0-12.0) Seconds INR (0.9-1.1) APTT (21.0-31.0) Seconds PTT Ratio Sodium 132 L (136-145) mmol/L Potassium 4.5 (3.5-5.1) mmol/L Chloride 98 (98-107) mmol/L Carbon Dioxide 25 (21-32) mmol/L Anion Gap 8.0 (3-11) BUN 65 H (7-18) mg/dl Creatinine 1.94 H (0.6-1.4) mg/dl Est Cr Clr Drug Dosing Not Reportable Est GFR ( Amer) 38.1 Est GFR (Non-Af Amer) 32.9 BUN/Creatinine Ratio 33.6 H (10-20) Glucose 45 L* (70-99) mg/dl POC Glucose 72 (70-99) Lactate (0.4-2.0) mmol/L Calcium 9.0 (8.5-10.1) mg/dl Magnesium 2.4 (1.8-2.4) mg/dl Total Bilirubin (0.2-1) mg/dl Direct Bilirubin (0-0.2) mg/dl AST (15-37) U/L ALT (12-78) U/L Alkaline Phosphatase (45-117) U/L Troponin I 0.055 H* (0-0.045) ng/ml NT-Pro-B Natriuret Pep (0-900) pg/ml Total Protein (6.4-8.2) gm/dl Albumin (3.4-5.0) gm/dl Influenza Type A (PCR) (Neg) Influenza Type B (PCR) (Neg) 08/20/19 08/20/19 08/20/19 Range/Units 18:31 18:28 18:05 WBC (4.8-10.8) K/uL RBC (4.7-6.1) M/uL Hgb (14.0-18.0) g/dL Hct (42-52) % MCV (80-100) fL MCH (25-34) pg MCHC (32-36) g/dL RDW Std Deviation (36.4-46.3) fL RDW Coeff of Aliyah (11.5-14.5) % Plt Count (130-400) K/uL MPV (7.4-10.4) fL Immature Gran % (Auto) % Neut % (Auto) % Lymph % (Auto) % Miner % (Auto) % Eos % (Auto) % Baso % (Auto) % Immature Gran # (Auto) (0.00-0.02) K/uL Neut # (Auto) (1.4-6.5) K/uL Lymph # (Auto) (1.2-3.4) K/uL Miner # (Auto) (0.11-0.59) K/uL Eos # (Auto) (0-0.5) K/uL Baso # (Auto) (0-0.2) K/uL PT (9.0-12.0) Seconds INR (0.9-1.1) APTT (21.0-31.0) Seconds PTT Ratio Sodium (136-145) mmol/L Potassium (3.5-5.1) mmol/L Chloride (98-107) mmol/L Carbon Dioxide (21-32) mmol/L Anion Gap (3-11) BUN (7-18) mg/dl Creatinine (0.6-1.4) mg/dl Est Cr Clr Drug Dosing Est GFR ( Amer) Est GFR (Non-Af Amer) BUN/Creatinine Ratio (10-20) Glucose (70-99) mg/dl POC Glucose 71 (70-99) Lactate 2.3 H* (0.4-2.0) mmol/L Calcium (8.5-10.1) mg/dl Magnesium (1.8-2.4) mg/dl Total Bilirubin (0.2-1) mg/dl Direct Bilirubin (0-0.2) mg/dl AST (15-37) U/L ALT (12-78) U/L Alkaline Phosphatase (45-117) U/L Troponin I (0-0.045) ng/ml NT-Pro-B Natriuret Pep (0-900) pg/ml Total Protein (6.4-8.2) gm/dl Albumin (3.4-5.0) gm/dl Influenza Type A (PCR) Pos for Influ A A* (Neg) Influenza Type B (PCR) Neg for Influ B (Neg) 08/20/19 08/20/19 Range/Units 17:53 17:39 WBC (4.8-10.8) K/uL RBC (4.7-6.1) M/uL Hgb (14.0-18.0) g/dL Hct (42-52) % MCV (80-100) fL MCH (25-34) pg MCHC (32-36) g/dL RDW Std Deviation (36.4-46.3) fL RDW Coeff of Aliyah (11.5-14.5) % Plt Count (130-400) K/uL MPV (7.4-10.4) fL Immature Gran % (Auto) % Neut % (Auto) % Lymph % (Auto) % Miner % (Auto) % Eos % (Auto) % Baso % (Auto) % Immature Gran # (Auto) (0.00-0.02) K/uL Neut # (Auto) (1.4-6.5) K/uL Lymph # (Auto) (1.2-3.4) K/uL Miner # (Auto) (0.11-0.59) K/uL Eos # (Auto) (0-0.5) K/uL Baso # (Auto) (0-0.2) K/uL PT (9.0-12.0) Seconds INR (0.9-1.1) APTT (21.0-31.0) Seconds PTT Ratio Sodium (136-145) mmol/L Potassium (3.5-5.1) mmol/L Chloride (98-107) mmol/L Carbon Dioxide (21-32) mmol/L Anion Gap (3-11) BUN (7-18) mg/dl Creatinine (0.6-1.4) mg/dl Est Cr Clr Drug Dosing Est GFR ( Amer) Est GFR (Non-Af Amer) BUN/Creatinine Ratio (10-20) Glucose (70-99) mg/dl POC Glucose 50 L* 59 L* (70-99) Lactate (0.4-2.0) mmol/L Calcium (8.5-10.1) mg/dl Magnesium (1.8-2.4) mg/dl Total Bilirubin (0.2-1) mg/dl Direct Bilirubin (0-0.2) mg/dl AST (15-37) U/L ALT (12-78) U/L Alkaline Phosphatase (45-117) U/L Troponin I (0-0.045) ng/ml NT-Pro-B Natriuret Pep (0-900) pg/ml Total Protein (6.4-8.2) gm/dl Albumin (3.4-5.0) gm/dl Influenza Type A (PCR) (Neg) Influenza Type B (PCR) (Neg) Medications Administered Dextrose/Sodium Chloride (D5w And Nss) 1,000 mls @ 125 mls/hr IV .Q8H STA Stop: 08/21/19 01:58 Last Infusion: 08/20/19 20:11 Dose: 0 mls/hr Documented by: [id number] Admin: 08/20/19 18:03 Dose: 125 mls/hr Documented by: [id number] Vancomycin HCl 1,750 mg/ (Sodium Chloride) 535 mls @ 200 mls/hr IV NOW ONE Stop: 08/20/19 21:30 Last Admin: 08/20/19 19:33 Dose: 200 mls/hr Documented by: [id number] Miscellaneous (Patient's Height And/Or Weight Needed) 1 ea N/A Q2H YARELY Stop: 08/21/19 00:16 Last Admin: 08/20/19 20:18 Dose: 1 ea Documented by: [id number] Miscellaneous Information (Consult) 1 ea N/A UD PRN PRN Reason: Consult Stop: 09/19/19 18:49 Last Admin: 08/20/19 20:10 Dose: 1 ea Documented by: [id number] Discontinued Medications Dextrose (Dextrose 50%) 50 ml IV NOW ONE Stop: 08/20/19 18:51 Last Admin: 08/20/19 19:02 Dose: 50 ml Documented by: [id number] Aztreonam 2,000 mg/ Dextrose 110 mls @ 100 mls/hr IV Q8H YARELY; Protocol Stop: 08/27/19 18:59 Last Admin: 08/20/19 19:33 Dose: 100 mls/hr Documented by: [id number] Octreotide Acetate (Sandostatin) 100 mcg SQ NOW STA Stop: 08/20/19 18:51 Last Admin: 08/20/19 19:12 Dose: 100 mcg Documented by: [id number] Code Status & VTE Plan Code Status Full code VTE Prophylaxis Plan VTE Prophylaxis will be ordered: Yes Supervising Physician Co-Signing Physician Notes Patient seen and examined, chart reviewed, case discussed with Dr. Brooks. I agree with his assessment and plan as documented above. Briefly, patient is a 73-year-old male with multiple medical problems to include CAD, ischemic cardiomyopathy with EF of 2025% per echocardiogram on 06/12/2018, atrial fibrillation on anticoagulation with rivaroxaban, diabetes/hypertension/hyperlipidemia/hypothyroidism. Remote history of paroxysmal V. tach status post biventricularAICD. Patient presents with complaint of hypoglycemia. Positive for influenza A pneumonia, sepsis elevated lactate. On physical exam he is afebrile, mildly hypertensive at 95/56, tachypneic at 26 saturating 96% on room air Generalpleasant 73-year-old male resting comfortably in bed, no acute distress, nontoxic in appearance Skinwarm, dry, intact HEENTnormocephalic/atraumatic, pupils equal react light, extraocular muscle intact, moist membranes, neck supple Heart + S1, S2, regular, no M/R/G, device present, nontender to palpation Lungsequal air entry bilaterally, diffuse wheezing extremitieswarm, well- perfused, no clubbing/cyanosis/edema Neurogrossly nonfocal Labs and images reviewed. Significant for normochromic/normocytic anemia with Hgb = 13.4, HCT = 40.1. Near baseline values. Thrombocytosis with platelets = 491 sodium = 132, BUN = 65, creatinine = 1.94, glucose = 40 5-313 lactate = 2.3 -->-5.5. Patient had elevated lactate of 2.2 during prior hospital stay in May. Troponin = 0.055, BNP = 7896, positive for influenza A Chest x-ray with cardiomegaly with volume overload and congestive changes similar to prior exam. Mild pulmonary edema suspected Assessment/[id number] male with multiple comorbidities presenting with hypoglycemia, sepsis secondary to influenza A, suspected pneumonia. -Due to severity of medical comorbidities will admit patient to medical ICU IV fluid resuscitation. Patient received 1 L bolus while in the ER, will continue with maintenance rate of 125 mL/h. Levophed as needed to maintain map over 65 -Broad-spectrum antibiotics with vancomycin and aztreonam Tamiflu Monitor blood sugars Trend troponins Trend lactate Remainder of plan as above Resident Activity Tracking Resident Involvement: Resident Care Provided Care Provided: Adult Hospital Medicine (1) CHF (congestive heart failure) Heart failure chronicity: acute on chronic Heart failure type: unspecified Qualified Code(s): I50.9 - Heart failure, unspecified (2) Sepsis Sepsis acute organ dysfunction status: unspecified Sepsis type: sepsis due to unspecified organism Qualified Code(s): A41.9 - Sepsis, unspecified organism
[2019-08-20] MEDS ORDERED: GLUCOSE 10 TABS/TUBE PO PRN (21:23)
[2019-08-20] MEDS ORDERED: GLUCAGON FOR INJ 1 MG VIAL SQ PRN (21:23)
[2019-08-20] MEDS ORDERED: CARBOHYDRATES FOR HYPOGLYCEMIA PO PRN (21:23)
[2019-08-20] MEDS ORDERED: ALBUTEROL 0.083% NEBU SOLN 3 ML VIAL NEB PRN (21:23)
[2019-08-20] MEDS ORDERED: LACTATED RINGER'S 1,000 ML IV SCH (21:23)
[2019-08-20] MEDS ORDERED: ICU PROTOCOL FOR HYPERGLYCEMIA PRN (21:23)
[2019-08-20] MEDS ORDERED: GLUCOSE 40% GEL 15 GM TUBE PO PRN (21:23)
--- NOTE | 2019-08-20 21:45 | Critical Care Consultation ---
Date of Consultation August 20, 2019 Assessment & Plan (1) Sepsis: Reason Critically Ill: 73-year-old male admitted to the ICU with sepsis, hypotension, influenza A, hypoglycemia Neuro - [facility] ICU: Negative Cardiac - Systolic CHF/hypotensioncardiogenic versus septic shock -Lactate elevated and patient tested positive for influenza A, see treatment of sepsis below echo from 06/18 showed EF 20 to 25% with significant akinesis of the anterior wall -Currently on Lasix and metolazone at home -CT chest and CXR suggestive of pulmonary edema, BNP elevated -We will continue ASA, holding MTP and metolazone in the setting of hypotension -We will spot diuresis with IV Lasix, considering ROGELIO and hypotension -Caution with IV fluid resuscitation, will likely transition from IV to oral with fluid restriction in morning -We will start on Levophed drip for maps greater than 65 if hypotension persists -Monitor strict I's and O's and daily weights -Continue to monitor on telemetry Proximal V. tach/PAF/LBBBpatient s/p pacemaker with AICD -We will continue Xarelto, ASA -Holding MTP in the setting of hypotension -Maximize electrolytes Respiratory - Respiratory distress/influenza A pneumoniapulmonary edema versus pneumonia versus COPD patient's currently admitted for influenza A, patient was placed on prophylaxis Tamiflu and azithromycin following bronchitis with hemoptysis 2 days ago -Influenza A positive on admission -CT chest was suggestive of multifocal bronchopneumonia and components of pulmonary edema history of 30 to 40 pack/year tobacco abuse quit decades ago -Was followed by pulmonology this fall during prior admission and was scheduled for PFTs outpatient -Reports he has been noncompliant with prescription for trilogy -Patient wheezing on exam, started on DuoNeb and IV Solu-Medrol -Currently maintaining oxygen saturations on room air, will continue continuous monitor GI - Heart healthy diabetic diet, fluid restriction Mild transaminitislikely secondary to hypotension/shock liver -We will trend LFTs, keep maps greater than 65, expectation to improve RENAL/LYTES - ROGELIO on CKDbaseline creatinine 1.6 with creatinine on admission 1.9 -likely prerenal/ATN secondary to hypotension -Given 1 L D5 normal saline in ED, continue soft IV fluid resuscitation given CHF for now -Maintain maps greater than 65 -Avoid nephrotoxins -Trend creatinine - Strict I's and O's ENDO - DM type II/hypoglycemialikely related to home med glipizide in the setting of influenza/sepsis -Bolused with D5 and normal saline in the ED, now on continuous IV fluids with dextrose -Replete blood glucose 181, will hold on insulin administration for now -Continue monitoring frequent blood glucose -Hypoglycemic protocol HEME - H&H stable, monitor routine CBCs ID - Sepsispatient test positive for influenza A, blood cultures pending, lactate elevated in the setting of hypotension -UA negative for UTI -CT from 08/18 suggestive of bronchopneumonia -Patient on day 2 of azithromycin and Tamiflu -Started on aztreonam and vancomycin, will continue Tamiflu LINES/IV ACCESS - Peripheral IVs DVT PROPHYLAXIS - SCDs, patient on Xarelto I have personally spent 40 minutes of critical care time in the direct management of this patient. This is a life/limb threatening event. This includes time spent evaluating patient, direct bedside care, chart review, placing orders, interpretation of diagnostic studies, discussion with consultants, irvin barone, and family members, as well as other required patient management activities. This time is exclusive of all separately billable procedures, and teaching time and separate from and in addition to any other critical care service time. Thank you for allowing us to participate in the care of this patient. Please refer to my attending physician's documentation for any further recommendations. (2) ICD (implantable cardioverter-defibrillator) in place: (3) Lyme arthritis: (4) Influenza A: (5) CHF (congestive heart failure): (6) Pneumonia: (7) Hypotension: (8) Diarrhea: (9) Acute on chronic renal failure: (10) Left bundle branch block (LBBB): Supervising Physician Co-Signing Physician Notes I was made aware of the patient via telephone. I agree with Flower LANDAVERDE assessment and plan. History of Present Illness Reason for Consultation: Mr. Das is a 73-year-old male with past medical history of systolic CHF (EF 20 to 25%), DM type II, proximal V. tach, proximal A. fib, L BBB, pacer/AICD, CKD who presented to the ED emergency department with complaints of hypoglycemia. Patient states that he was feeling nauseous at home and took his blood sugar which was low. Patient takes glipizide and was diagnosed 2 days ago with influenza A. He had been placed on azithromycin and Tamiflu. Patient also states that he has been having diarrhea for the past few days. He had previously been having a productive cough with mild hemoptysis which has now subsided. His blood glucose in the emergency department was 45 on arrival and he was infused with D5 in normal saline which resolve the hypoglycemia. He was also found to have an elevated lactate and hypotensive with ROGELIO and elevated LFTs and is currently being treated for sepsis. Upon exam the patient currently denies headache, syncope, sore throat, productive cough, shortness of breath, chest pain, palpitations, abdominal pain, nausea or vomiting, or burning or hesitancy with urination. Patient to remain in ICU for now for hyperglycemia and hypotension and low threshold for intervention with vasopressors Attending Physician: Ghazal Lee DO Allergies Allergy/AdvReac Type Severity Reaction Status Date / Time Fdtldms-Tgb-Xsw Reductase Allergy Intermediate myalgia Verified 08/20/19 18:24 Inhibitor bee venom protein (honey bee) Allergy Unknown yellow Verified 08/20/19 18:24 jacket Penicillins Allergy Unknown Unknown Verified 08/20/19 18:24 levofloxacin AdvReac Intermediate nightmares Verified 08/20/19 18:24 Home Medications Home Medications Medication Instructions Recorded Confirmed Type furosemide 40 mg tablet 40 mg PO BID #180 tab 03/17/19 08/20/19 Rx metoprolol succinate 25 mg 25 mg PO DAILY #90 tab 03/17/19 08/20/19 Rx tablet,extended release 24 hr nitroglycerin 400 mcg/spray 1 sprays SL .COMPLEX PRN #4.9 gm 03/17/19 08/20/19 Rx translingual potassium chloride 20 mEq 20 meq PO DAILY #90 tab 03/17/19 08/20/19 Rx tablet,extended release aspirin [Aspir-81] 81 mg PO DAILY 06/11/19 08/20/19 History ferrous sulfate 325 mg (65 mg 325 mg PO DAILY 07/19/19 08/20/19 History iron) tablet sacubitril 24 mg-valsartan 26 mg 1 tab PO BID #180 tab 07/25/19 08/20/19 Rx tablet rivaroxaban 15 mg tablet 15 mg PO QPM 08/04/19 08/20/19 History cholecalciferol (vitamin D3) 5,000 5,000 units PO DAILY cap 08/09/19 08/20/19 History unit capsule fluticasone fur. 100 mcg-umeclid 1 puffs INH DAILY #28 ea 08/09/19 08/20/19 Rx 62.5 mcg-vilant 25 mcg inhalat.powder glipizide 5 mg tablet 5 mg PO DAILY #90 tab 08/12/19 08/20/19 Rx metolazone 2.5 mg tablet 2.5 mg PO DAILY tab 08/17/19 08/20/19 History azithromycin 500 mg tablet 500 mg PO DAILY 5 Days #5 tab 08/18/19 08/20/19 Rx oseltamivir 75 mg capsule 75 mg PO DAILY 14 Days #14 cap 08/19/19 08/20/19 Rx loperamide [Imodium A-D] 2 mg PO DIRECTED PRN 08/20/19 08/20/19 History Patient History Medical History Acute on chronic systolic congestive heart failure (Resolved) Anemia Arteriosclerotic cardiovascular disease (Acute) Atrial fibrillation (Chronic) Central hypothyroidism (Acute) Chronic kidney disease, stage 3 (moderate) (Chronic) Chronic systolic congestive heart failure (Acute) 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) Dyslipidemia (Acute) Gout (Acute) History of pacemaker Hypertension (Acute) ICD (implantable cardioverter-defibrillator) in place (Acute 09/02/11) Ischemic cardiomyopathy (Acute) Left bundle branch block (LBBB) (Acute) Multinodular goiter (Acute) Old myocardial infarction (Acute) Paroxysmal ventricular tachycardia (Acute) Pneumonia Solitary thyroid nodule (Acute) Vitamin D deficiency (Acute) Surgical History H/O hand surgery L index finger History of ankle surgery S/P foot surgery S/P knee surgery L patella fx repair Family History Father Myocardial infarction Family/Other Heart disease Hypertension Dyslipidemia Other Family history non-contributory Social History Preferred Language: Ken[place] Communication Ability: Effective Visual Impairment: Limited Hearing Ability: Normal Programming Coordinator Required: No Beliefs That Will Affect Care: None marital status: Current Living Situation: Spouse current occupational status: retired Other Information That Helps Us Care for You: No Feels Safe at Home: Yes Safety Concerns: Feels Safe At This Time Smoking Status: Unknown if ever smoked Hx Alcohol Use: No Hx Substance Use: No Childhood Exposure to Second-Hand Smoke: Yes caffeine: No during the past year weight has: remained stable Dental Care, Regularly: Yes Physical Activity Frequency: Does not Exercise Seatbelt Use: always Sunscreen Use: Yes Review of Systems Review of Systems: All systems reviewed & are unremarkable except as noted in HPI & below Physical Exam Eyes: PERRL, conjunctivae normal, anicteric sclerae ENMT: external ear and nose normal, oropharynx normal Respiratory: Coarse crackles and wheezes auscultated in all miller, nonlabored breathing, symmetrical chest wall movement Cardiovascular: RRR, no murmur, no edema Heart Sounds: normal S1 and normal S2 Vessels: no JVD Extremities: no pedal edema Gastrointestinal (Abdomen): Inspection/Auscultation: + abdomen distended and normal bowel sounds Nontender Skin: no rashes, warm and dry Neurologic: PERRL, EOMI, accommodation nl, no face palsy, no dysarthria Psychiatric: A+Ox3, euthymic affect Results & Data Vital Signs (Past 12 Hours) Vital Signs Temp Pulse Pulse Resp BP BP Pulse Ox 08/20/19 21:00 85 40 H 90 08/20/19 20:55 36.5 C 83 33 H 101/59 L 89 L 08/20/19 20:47 37.5 C 81 26 H 101/59 L 93 08/20/19 20:31 76 93 08/20/19 20:30 76 96/61 L 94 08/20/19 20:01 75 31 H 95 08/20/19 20:00 78 37 H 96/63 L 94 08/20/19 19:57 82 37 H 82/60 L 95 08/20/19 19:56 79 23 86/46 L 95 08/20/19 19:45 76 27 H 76/58 L 97 08/20/19 19:43 82 24 92 08/20/19 19:42 71 25 H 93/61 L 97 08/20/19 19:34 79 28 H 78/59 L 95 08/20/19 19:31 68 30 H 97 08/20/19 19:30 78 28 H 80/58 L 92 08/20/19 19:18 82 29 H 93/61 L 95 08/20/19 19:03 89 26 H 95/56 L 08/20/19 18:46 73 28 H 08/20/19 18:45 71 28 H 76/48 L 08/20/19 18:00 81 22 87/56 L 08/20/19 17:56 75 21 90/63 L 08/20/19 17:39 36.7 C 79 18 92/57 L 96 Coding Level of Care Code Critical Care 1st 30-74 mins Diagnoses Sepsis A41.9 Sepsis acute organ dysfunction status: unspecified Sepsis type: sepsis due to unspecified organism ICD (implantable cardioverter-defibrillator) in place Z95.810 Lyme arthritis A69.23 Influenza A J10.1 CHF (congestive heart failure) I50.9 Heart failure chronicity: acute on chronic Heart failure type: unspecified Pneumonia J18.9 Laterality: left Lung location: unspecified part of lung Pneumonia type: due to unspecified organism Hypotension I95.9 Diarrhea R19.7 Acute on chronic renal failure N17.9; N18.9 Left bundle branch block (LBBB) I44.7 (1) CHF (congestive heart failure) Heart failure chronicity: acute on chronic Heart failure type: unspecified Qualified Code(s): I50.9 - Heart failure, unspecified (2) Sepsis Sepsis acute organ dysfunction status: unspecified Sepsis type: sepsis due to unspecified organism Qualified Code(s): A41.9 - Sepsis, unspecified organism (3) Pneumonia Laterality: left Lung location: unspecified part of lung Pneumonia type: due to unspecified organism Qualified Code(s): J18.9 - Pneumonia, unspecified organism
[2019-08-20] MEDS: RIVAROXABAN 15 MG TAB PO SCH (21:48)
[2019-08-20] MEDS: OSELTAMIVIR PHOSPHATE SUSP 30 MG/5 ML UDP PO SCH (21:48)
[2019-08-20] MEDS: methylPREDNISolone 40 MG in SYRINGE 0 ML IV SCH (22:08)
[2019-08-20] MEDS: ALBUT/IPRATROP 3MG/0.5MG NEB 3 ML VIAL NEB SCH (22:29)
[2019-08-20] MEDS: NOREPINEPHRINE BIT INJ 8 MG in DEXTROSE 5% 500 ML IV SCH (23:00)
[2019-08-20] MEDS ORDERED: NORMOSOL-R 1,000 ML IV SCH (23:30)
[2019-08-21] MEDS ORDERED: GLUCOSE 40% GEL 15 GM TUBE PO PRN (00:38)
[2019-08-21] MEDS ORDERED: CARBOHYDRATES FOR HYPOGLYCEMIA PO PRN (00:38)
[2019-08-21] MEDS ORDERED: GLUCOSE 10 TABS/TUBE PO PRN (00:38)
[2019-08-21] MEDS ORDERED: GLUCAGON FOR INJ 1 MG VIAL SQ PRN (00:38)
[2019-08-21] MEDS ORDERED: DEXTROSE 50% 50 ML SYRINGE IV PRN (00:38)
[2019-08-21] MEDS ORDERED: INSULIN ASPART 100 UNITS/ML 3 ML PEN SC STA (00:53)
[2019-08-21 02:11] LABS: Basophils # (auto) 0.02 K/uL (0-0.2); Basophils % (auto) 0.2 %; Hematocrit (blood only) 34.1 % (42-52); Hemoglobin 11.3 g/dL (14.0-18.0); Immature Granulocytes # (auto) 0.01 K/uL (0.00-0.02); Immature Granulocytes % (auto) 0.1 %; Lymphocytes # (auto) 0.17 K/uL (1.2-3.4); Mean Corpuscular Hgb Conc 33.1 g/dL (32-36); Mean Corpuscular Volume 93.7 fL (80-100); Mean Platelet Volume 10.5 fL (7.4-10.4); Monocytes # (auto) 0.34 K/uL (0.11-0.59); Neutrophils # (auto) 8.03 K/uL (1.4-6.5); Neutrophils % (auto) 93.7 %; Platelet Count 473 K/uL (130-400); RDW Standard Deviation 61.9 fL (36.4-46.3); Red Blood Count 3.64 M/uL (4.7-6.1); White Blood Count 8.57 K/uL (4.8-10.8)
--- NOTE | 2019-08-21 02:14 | Billing Data ---
Date of Service August 21, 2019 Coding Level of Care Code 18591 Initial Inpt Care Lvl 3
[2019-08-21 02:30] LABS: Albumin Level 2.8 gm/dl (3.4-5.0); BUN Creatinine Ratio 35.5 (10-20); Bilirubin Direct 0.7 mg/dl (0-0.2); Calcium 7.5 mg/dl (8.5-10.1); Creatinine Clr Calc Pharmacy 41.9 ml/min; Est GFR (African American) 43.8; Est GFR (Non-African American) 37.8; Magnesium 2.2 mg/dl (1.8-2.4); Potassium 4.9 mmol/L (3.5-5.1)
[2019-08-21 02:42] LABS: Albumin Globulin Ratio 0.7 (0.9-2); Bilirubin,Total 1.2 mg/dl (0.2-1); Phosphorus 3.6 mg/dl (2.5-4.9); Total Protein 6.8 gm/dl (6.4-8.2)
[2019-08-21 02:51] LABS: Thyroid Stimulating Hormone 0.741 uIu/ml (0.300-4.500); Troponin I 0.059 ng/ml (0-0.045)
[2019-08-21] MEDS: ALBUT/IPRATROP 3MG/0.5MG NEB 3 ML VIAL NEB SCH ×6 (03:50→23:22)
[2019-08-21] MEDS: AZTREONAM 2,000 MG in DEXTROSE 5% 100 ML IV SCH ×2 (04:08→14:37)
[2019-08-21] MEDS: INSULIN ASPART 100 UNITS/ML 3 ML PEN SC SCH ×4 (06:11→21:27)
--- NOTE | 2019-08-21 07:09 | XRay Report ---
XR chest 1V portable CLINICAL HISTORY: PNA and heart failure COMPARISON STUDY: Chest CT August 18, 2019. Chest radiograph August 20, 2019. FINDINGS: A right subclavian biventricular pacer/AICD is in place. Remainder is unchanged. Patchy maria del carmen ateral airspace opacities persist. Interstitial thickening has slightly improved. No pneumothorax or pleural effusion is noted. IMPRESSION: 1. Persistent patchy bilateral airspace opacities which favors pneumonia. 2. Suspected mild pulmonary edema, slightly improved. ACT 112: Negative or not required by law. Electronically signed by: Frankie Cherry M.D. 08/21/2019 7:08 AM
[2019-08-21] MEDS: CHOLECALCIFEROL 1,000 UNITS TAB PO SCH (08:34)
[2019-08-21] MEDS: FERROUS SULFATE 325 MG TAB PO SCH (08:36)
[2019-08-21] MEDS: POTASSIUM CHLORIDE 20 MEQ TABCR PO SCH (08:36)
[2019-08-21] MEDS: ASPIRIN 81 MG ECTAB PO SCH (08:36)
[2019-08-21] MEDS ORDERED: OSELTAMIVIR PHOSPHATE 75 MG CAP PO SCH (09:00)
--- NOTE | 2019-08-21 11:07 | Critical Care Progress Note ---
Date of Service August 21, 2019 Assessment & Plan (1) Sepsis: Reason Critically Ill: 73-year-old male admitted to the ICU with sepsis, hypotension, influenza A, hypoglycemia Neuro - [facility] ICU: Negative Cardiac - Systolic CHF/hypotensioncardiogenic versus septic shock -Lactate elevated and patient tested positive for influenza A, see treatment of sepsis below echo from 06/18 showed EF 20 to 25% with significant akinesis of the anterior wall -Currently on Lasix and metolazone at home -CT chest and CXR suggestive of pulmonary edema, BNP elevated -We will continue ASA, holding MTP and metolazone in the setting of hypotension -We will spot diuresis with IV Lasix, considering ROGELIO and hypotension -Caution with IV fluid resuscitation, will likely transition from IV to oral with fluid restriction in morning -We will start on Levophed drip for maps greater than 65 if hypotension persists -Monitor strict I's and O's and daily weights -Continue to monitor on telemetry Proximal V. tach/PAF/LBBBpatient s/p pacemaker with AICD -We will continue Xarelto, ASA -Holding MTP in the setting of hypotension -Maximize electrolytes Respiratory - Respiratory distress/influenza A pneumoniapulmonary edema versus pneumonia versus COPD patient's currently admitted for influenza A, patient was placed on prophylaxis Tamiflu and azithromycin following bronchitis with hemoptysis 2 days ago -Influenza A positive on admission -CT chest was suggestive of multifocal bronchopneumonia and components of pulmonary edema history of 30 to 40 pack/year tobacco abuse quit decades ago -Was followed by pulmonology this fall during prior admission and was scheduled for PFTs outpatient -Reports he has been noncompliant with prescription for trilogy -Patient wheezing on exam, started on DuoNeb and IV Solu-Medrol -Currently maintaining oxygen saturations on room air, will continue continuous monitor GI - Heart healthy diabetic diet, fluid restriction Mild transaminitislikely secondary to hypotension/shock liver -We will trend LFTs, keep maps greater than 65, expectation to improve RENAL/LYTES - ROGELIO on CKDbaseline creatinine 1.6 with creatinine on admission 1.9 -likely prerenal/ATN secondary to hypotension -Given 1 L D5 normal saline in ED, continue soft IV fluid resuscitation given CHF for now -Maintain maps greater than 65 -Avoid nephrotoxins -Trend creatinine - Strict I's and O's ENDO - DM type II/hypoglycemialikely related to home med glipizide in the setting of influenza/sepsis -Bolused with D5 and normal saline in the ED, now on continuous IV fluids with dextrose -Replete blood glucose 181, will hold on insulin administration for now -Continue monitoring frequent blood glucose -Hypoglycemic protocol HEME - H&H stable, monitor routine CBCs ID - Sepsispatient test positive for influenza A, blood cultures pending, lactate elevated in the setting of hypotension -UA negative for UTI -CT from 08/18 suggestive of bronchopneumonia -Patient on day 2 of azithromycin and Tamiflu -Started on aztreonam and vancomycin, will continue Tamiflu LINES/IV ACCESS - Peripheral IVs DVT PROPHYLAXIS - SCDs, patient on Xarelto Patient remains critically ill due to vasoactive medication requirement. 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 nontoxic. Skin: Warm, dry, Head: Atraumatic Ears, nose, mouth and throat: airway patent Cardiovascular: Normal peripheral perfusion Respiratory: no respiratory distress Gastrointestinal: Non distended Musculoskeletal: No deformity Results & Data Vital Signs (Past 12 Hours) Vital Signs Temp Pulse Pulse Resp BP BP Pulse Ox 08/21/19 10:01 77 25 H 96/52 L 94 08/21/19 10:00 79 30 H 93 08/21/19 09:45 76 30 H 101/58 L 93 08/21/19 09:31 71 26 H 100/60 93 08/21/19 09:16 82 39 H 114/49 L 94 08/21/19 09:01 79 31 H 92 08/21/19 09:00 73 32 H 115/62 92 08/21/19 08:45 78 27 H 101/58 L 92 08/21/19 08:31 71 20 109/71 92 12/22/19 08:15 77 24 107/58 L 93 08/21/19 08:01 70 24 94 08/21/19 08:00 36.7 C 68 28 H 115/66 94 08/21/19 07:45 75 16 97/64 L 98 08/21/19 07:35 75 20 94 08/21/19 07:30 63 24 108/68 94 08/21/19 07:15 71 23 100/58 L 95 08/21/19 07:01 78 21 87/50 L 92 08/21/19 07:00 63 17 92 08/21/19 06:15 68 25 H 89/60 L 92 08/21/19 06:01 68 1 L 93 08/21/19 06:00 70 16 102/58 L 96 08/21/19 05:45 75 9 L 94/64 L 94 08/21/19 05:30 72 29 H 94/52 L 92 08/21/19 05:15 78 33 H 102/58 L 93 08/21/19 05:01 68 27 H 92 08/21/19 05:00 79 25 H 102/57 L 93 08/21/19 04:46 74 34 H 93 08/21/19 04:45 72 24 103/57 L 93 08/21/19 04:31 74 27 H 94 08/21/19 04:30 70 77 16 105/58 L 105/58 L 94 08/21/19 04:16 80 21 88/51 L 95 08/21/19 04:15 78 29 H 95 08/21/19 04:01 71 30 H 95 08/21/19 04:00 65 67 16 113/65 113/65 96 08/21/19 03:46 67 24 113/64 94 08/21/19 03:45 65 15 113/64 96 08/21/19 03:31 70 24 92 08/21/19 03:30 76 71 16 107/65 107/65 91 08/21/19 03:16 76 23 104/71 87 L 08/21/19 03:15 71 24 109/71 94 08/21/19 03:01 64 20 92 08/21/19 03:00 72 26 H 104/71 94 08/21/19 02:46 70 28 H 99/62 L 92 08/21/19 02:45 75 29 H 99/62 L 93 08/21/19 02:31 71 28 H 93 08/21/19 02:30 74 23 99/54 L 93 08/21/19 02:16 67 25 H 97/51 L 94 08/21/19 02:15 75 6 L 97/51 L 91 08/21/19 02:01 76 18 82/72 L 92 08/21/19 02:00 75 29 H 93 08/21/19 01:46 67 26 H 103/70 93 08/21/19 01:31 71 3 L 93 08/21/19 01:30 72 12 96/64 L 94 08/21/19 01:25 75 12 105/63 94 08/21/19 01:16 75 32 H 92 08/21/19 01:01 74 28 H 92 08/21/19 01:00 72 34 H 97/50 L 91 08/21/19 00:45 73 32 H 79/47 L 93 08/21/19 00:31 77 24 95 08/21/19 00:30 86 29 H 91/47 L 93 08/21/19 00:15 77 7 L 95/64 L 94 08/21/19 00:05 79 25 H 94 08/21/19 00:01 79 34 H 94 08/21/19 00:00 80 31 H 83/64 L 94 08/20/19 23:46 79 25 H 117/58 L 94 08/20/19 23:37 72 15 111/65 96 08/20/19 23:30 86 19 94 08/20/19 23:16 77 31 H 93 08/20/19 23:15 73 32 H 96/62 L 94 Laboratory Results 08/21/19 08/21/19 08/21/19 Range/Units 06:09 02:00 02:00 WBC 8.57 (4.8-10.8) K/uL RBC 3.64 L (4.7-6.1) M/uL Hgb 11.3 L (14.0-18.0) g/dL Hct 34.1 L (42-52) % MCV 93.7 (80-100) fL MCH 31.0 (25-34) pg MCHC 33.1 (32-36) g/dL RDW Std Deviation 61.9 H (36.4-46.3) fL RDW Coeff of Aliyah 18.0 H (11.5-14.5) % Plt Count 473 H (130-400) K/uL MPV 10.5 H (7.4-10.4) fL Immature Gran % (Auto) 0.1 % Neut % (Auto) 93.7 % Lymph % (Auto) 2.0 % [place] % (Auto) 4.0 % Eos % (Auto) 0.0 % Baso % (Auto) 0.2 % Immature Gran # (Auto) 0.01 (0.00-0.02) K/uL Neut # (Auto) 8.03 H (1.4-6.5) K/uL Lymph # (Auto) 0.17 L (1.2-3.4) K/uL [place] # (Auto) 0.34 (0.11-0.59) K/uL Eos # (Auto) 0.00 (0-0.5) K/uL Baso # (Auto) 0.02 (0-0.2) K/uL PT (9.0-12.0) Seconds INR (0.9-1.1) APTT (21.0-31.0) Seconds PTT Ratio Sodium (136-145) mmol/L Potassium (3.5-5.1) mmol/L Chloride (98-107) mmol/L Carbon Dioxide (21-32) mmol/L Anion Gap (3-11) BUN (7-18) mg/dl Creatinine (0.6-1.4) mg/dl Est Cr Clr Drug Dosing Est GFR ( Amer) Est GFR (Non-Af Amer) BUN/Creatinine Ratio (10-20) Glucose (70-99) mg/dl POC Glucose 298 H (70-99) Lactate 1.4 (0.4-2.0) mmol/L Calcium (8.5-10.1) mg/dl Phosphorus (2.5-4.9) mg/dl Magnesium (1.8-2.4) mg/dl Total Bilirubin (0.2-1) mg/dl Direct Bilirubin (0-0.2) mg/dl AST (15-37) U/L ALT (12-78) U/L Alkaline Phosphatase (45-117) U/L Troponin I (0-0.045) ng/ml NT-Pro-B Natriuret Pep (0-900) pg/ml Total Protein (6.4-8.2) gm/dl Albumin (3.4-5.0) gm/dl Globulin (2.5-4.0) gm/dl Albumin/Globulin Ratio (0.9-2) TSH (0.300-4.500) uIu/ml Nasal Screen MRSA (PCR) (Negative) Stl C. diff Tox B Gene (Neg) Influenza Type A (PCR) (Neg) Influenza Type B (PCR) (Neg) 08/21/19 08/21/19 08/20/19 Range/Units 02:00 00:25 Unknown WBC (4.8-10.8) K/uL RBC (4.7-6.1) M/uL Hgb (14.0-18.0) g/dL Hct (42-52) % MCV (80-100) fL MCH (25-34) pg MCHC (32-36) g/dL RDW Std Deviation (36.4-46.3) fL RDW Coeff of Aliyah (11.5-14.5) % Plt Count (130-400) K/uL MPV (7.4-10.4) fL Immature Gran % (Auto) % Neut % (Auto) % Lymph % (Auto) % [place] % (Auto) % Eos % (Auto) % Baso % (Auto) % Immature Gran # (Auto) (0.00-0.02) K/uL Neut # (Auto) (1.4-6.5) K/uL Lymph # (Auto) (1.2-3.4) K/uL [place] # (Auto) (0.11-0.59) K/uL Eos # (Auto) (0-0.5) K/uL Baso # (Auto) (0-0.2) K/uL PT (9.0-12.0) Seconds INR (0.9-1.1) APTT (21.0-31.0) Seconds PTT Ratio Sodium 128 L (136-145) mmol/L Potassium 4.9 (3.5-5.1) mmol/L Chloride 100 (98-107) mmol/L Carbon Dioxide 19 L (21-32) mmol/L Anion Gap 9.0 (3-11) BUN 61 H (7-18) mg/dl Creatinine 1.73 H (0.6-1.4) mg/dl Est Cr Clr Drug Dosing 41.9 Est GFR ( Amer) 43.8 Est GFR (Non-Af Amer) 37.8 BUN/Creatinine Ratio 35.5 H (10-20) Glucose 293 H (70-99) mg/dl POC Glucose 313 H* (70-99) Lactate (0.4-2.0) mmol/L Calcium 7.5 L D (8.5-10.1) mg/dl Phosphorus 3.6 (2.5-4.9) mg/dl Magnesium 2.2 (1.8-2.4) mg/dl Total Bilirubin 1.2 H (0.2-1) mg/dl Direct Bilirubin 0.7 H (0-0.2) mg/dl AST 60 H (15-37) U/L ALT 41 (12-78) U/L Alkaline Phosphatase 67 (45-117) U/L Troponin I 0.059 H* (0-0.045) ng/ml NT-Pro-B Natriuret Pep (0-900) pg/ml Total Protein 6.8 (6.4-8.2) gm/dl Albumin 2.8 L (3.4-5.0) gm/dl Globulin 4.0 (2.5-4.0) gm/dl Albumin/Globulin Ratio 0.7 L (0.9-2) TSH 0.741 (0.300-4.500) uIu/ml Nasal Screen MRSA (PCR) (Negative) Stl C. diff Tox B Gene Negative Cdiff Gene (Neg) Influenza Type A (PCR) (Neg) Influenza Type B (PCR) (Neg) 08/20/19 08/20/19 08/20/19 Range/Units Unknown Unknown Unknown WBC (4.8-10.8) K/uL RBC (4.7-6.1) M/uL Hgb (14.0-18.0) g/dL Hct (42-52) % MCV (80-100) fL MCH (25-34) pg MCHC (32-36) g/dL RDW Std Deviation (36.4-46.3) fL RDW Coeff of Aliyah (11.5-14.5) % Plt Count (130-400) K/uL MPV (7.4-10.4) fL Immature Gran % (Auto) % Neut % (Auto) % Lymph % (Auto) % [place] % (Auto) % Eos % (Auto) % Baso % (Auto) % Immature Gran # (Auto) (0.00-0.02) K/uL Neut # (Auto) (1.4-6.5) K/uL Lymph # (Auto) (1.2-3.4) K/uL [place] # (Auto) (0.11-0.59) K/uL Eos # (Auto) (0-0.5) K/uL Baso # (Auto) (0-0.2) K/uL PT 12.9 H (9.0-12.0) Seconds INR 1.3 H (0.9-1.1) APTT 32.8 H (21.0-31.0) Seconds PTT Ratio 1.2 Sodium (136-145) mmol/L Potassium (3.5-5.1) mmol/L Chloride (98-107) mmol/L Carbon Dioxide (21-32) mmol/L Anion Gap (3-11) BUN (7-18) mg/dl Creatinine (0.6-1.4) mg/dl Est Cr Clr Drug Dosing Est GFR ( Amer) Est GFR (Non-Af Amer) BUN/Creatinine Ratio (10-20) Glucose (70-99) mg/dl POC Glucose (70-99) Lactate (0.4-2.0) mmol/L Calcium (8.5-10.1) mg/dl Phosphorus (2.5-4.9) mg/dl Magnesium (1.8-2.4) mg/dl Total Bilirubin 1.2 H (0.2-1) mg/dl Direct Bilirubin 0.5 H (0-0.2) mg/dl AST 80 H (15-37) U/L ALT 49 (12-78) U/L Alkaline Phosphatase 76 (45-117) U/L Troponin I (0-0.045) ng/ml NT-Pro-B Natriuret Pep (0-900) pg/ml Total Protein 8.2 (6.4-8.2) gm/dl Albumin 3.5 (3.4-5.0) gm/dl Globulin (2.5-4.0) gm/dl Albumin/Globulin Ratio (0.9-2) TSH (0.300-4.500) uIu/ml Nasal Screen MRSA (PCR) Negative (Negative) Stl C. diff Tox B Gene (Neg) Influenza Type A (PCR) (Neg) Influenza Type B (PCR) (Neg) 08/20/19 08/20/19 08/20/19 Range/Units Unknown Unknown Unknown WBC 10.14 (4.8-10.8) K/uL RBC 4.21 L (4.7-6.1) M/uL Hgb 13.4 L (14.0-18.0) g/dL Hct 40.1 L (42-52) % MCV 95.2 (80-100) fL MCH 31.8 (25-34) pg MCHC 33.4 (32-36) g/dL RDW Std Deviation 62.9 H (36.4-46.3) fL RDW Coeff of Aliyah 18.0 H (11.5-14.5) % Plt Count 491 H (130-400) K/uL MPV 10.4 (7.4-10.4) fL Immature Gran % (Auto) 0.2 % Neut % (Auto) 90.2 % Lymph % (Auto) 3.1 % [place] % (Auto) 6.4 % Eos % (Auto) 0.0 % Baso % (Auto) 0.1 % Immature Gran # (Auto) 0.02 (0.00-0.02) K/uL Neut # (Auto) 9.15 H (1.4-6.5) K/uL Lymph # (Auto) 0.31 L (1.2-3.4) K/uL [place] # (Auto) 0.65 H (0.11-0.59) K/uL Eos # (Auto) 0.00 (0-0.5) K/uL Baso # (Auto) 0.01 (0-0.2) K/uL PT (9.0-12.0) Seconds INR (0.9-1.1) APTT (21.0-31.0) Seconds PTT Ratio Sodium 132 L (136-145) mmol/L Potassium 4.5 (3.5-5.1) mmol/L Chloride 98 (98-107) mmol/L Carbon Dioxide 25 (21-32) mmol/L Anion Gap 8.0 (3-11) BUN 65 H (7-18) mg/dl Creatinine 1.94 H (0.6-1.4) mg/dl Est Cr Clr Drug Dosing Not Reportable Est GFR ( Amer) 38.1 Est GFR (Non-Af Amer) 32.9 BUN/Creatinine Ratio 33.6 H (10-20) Glucose 45 L* (70-99) mg/dl POC Glucose (70-99) Lactate (0.4-2.0) mmol/L Calcium 9.0 (8.5-10.1) mg/dl Phosphorus (2.5-4.9) mg/dl Magnesium 2.4 (1.8-2.4) mg/dl Total Bilirubin (0.2-1) mg/dl Direct Bilirubin (0-0.2) mg/dl AST (15-37) U/L ALT (12-78) U/L Alkaline Phosphatase (45-117) U/L Troponin I 0.055 H* (0-0.045) ng/ml NT-Pro-B Natriuret Pep 7896 H (0-900) pg/ml Total Protein (6.4-8.2) gm/dl Albumin (3.4-5.0) gm/dl Globulin (2.5-4.0) gm/dl Albumin/Globulin Ratio (0.9-2) TSH (0.300-4.500) uIu/ml Nasal Screen MRSA (PCR) (Negative) Stl C. diff Tox B Gene (Neg) Influenza Type A (PCR) (Neg) Influenza Type B (PCR) (Neg) 08/20/19 08/20/19 08/20/19 Range/Units 21:44 21:17 20:25 WBC (4.8-10.8) K/uL RBC (4.7-6.1) M/uL Hgb (14.0-18.0) g/dL Hct (42-52) % MCV (80-100) fL MCH (25-34) pg MCHC (32-36) g/dL RDW Std Deviation (36.4-46.3) fL RDW Coeff of Aliyah (11.5-14.5) % Plt Count (130-400) K/uL MPV (7.4-10.4) fL Immature Gran % (Auto) % Neut % (Auto) % Lymph % (Auto) % [place] % (Auto) % Eos % (Auto) % Baso % (Auto) % Immature Gran # (Auto) (0.00-0.02) K/uL Neut # (Auto) (1.4-6.5) K/uL Lymph # (Auto) (1.2-3.4) K/uL [place] # (Auto) (0.11-0.59) K/uL Eos # (Auto) (0-0.5) K/uL Baso # (Auto) (0-0.2) K/uL PT (9.0-12.0) Seconds INR (0.9-1.1) APTT (21.0-31.0) Seconds PTT Ratio Sodium (136-145) mmol/L Potassium (3.5-5.1) mmol/L Chloride (98-107) mmol/L Carbon Dioxide (21-32) mmol/L Anion Gap (3-11) BUN (7-18) mg/dl Creatinine (0.6-1.4) mg/dl Est Cr Clr Drug Dosing Est GFR ( Amer) Est GFR (Non-Af Amer) BUN/Creatinine Ratio (10-20) Glucose (70-99) mg/dl POC Glucose 181 H 167 H (70-99) Lactate (0.4-2.0) mmol/L Calcium (8.5-10.1) mg/dl Phosphorus (2.5-4.9) mg/dl Magnesium (1.8-2.4) mg/dl Total Bilirubin (0.2-1) mg/dl Direct Bilirubin (0-0.2) mg/dl AST (15-37) U/L ALT (12-78) U/L Alkaline Phosphatase (45-117) U/L Troponin I 0.059 H* (0-0.045) ng/ml NT-Pro-B Natriuret Pep (0-900) pg/ml Total Protein (6.4-8.2) gm/dl Albumin (3.4-5.0) gm/dl Globulin (2.5-4.0) gm/dl Albumin/Globulin Ratio (0.9-2) TSH (0.300-4.500) uIu/ml Nasal Screen MRSA (PCR) (Negative) Stl C. diff Tox B Gene (Neg) Influenza Type A (PCR) (Neg) Influenza Type B (PCR) (Neg) 08/20/19 08/20/19 08/20/19 Range/Units 20:20 19:41 19:39 WBC (4.8-10.8) K/uL RBC (4.7-6.1) M/uL Hgb (14.0-18.0) g/dL Hct (42-52) % MCV (80-100) fL MCH (25-34) pg MCHC (32-36) g/dL RDW Std Deviation (36.4-46.3) fL RDW Coeff of Aliyah (11.5-14.5) % Plt Count (130-400) K/uL MPV (7.4-10.4) fL Immature Gran % (Auto) % Neut % (Auto) % Lymph % (Auto) % [place] % (Auto) % Eos % (Auto) % Baso % (Auto) % Immature Gran # (Auto) (0.00-0.02) K/uL Neut # (Auto) (1.4-6.5) K/uL Lymph # (Auto) (1.2-3.4) K/uL [place] # (Auto) (0.11-0.59) K/uL Eos # (Auto) (0-0.5) K/uL Baso # (Auto) (0-0.2) K/uL PT (9.0-12.0) Seconds INR (0.9-1.1) APTT (21.0-31.0) Seconds PTT Ratio Sodium (136-145) mmol/L Potassium (3.5-5.1) mmol/L Chloride (98-107) mmol/L Carbon Dioxide (21-32) mmol/L Anion Gap (3-11) BUN (7-18) mg/dl Creatinine (0.6-1.4) mg/dl Est Cr Clr Drug Dosing Est GFR ( Amer) Est GFR (Non-Af Amer) BUN/Creatinine Ratio (10-20) Glucose (70-99) mg/dl POC Glucose 191 H 205 H (70-99) Lactate 5.5 H* (0.4-2.0) mmol/L Calcium (8.5-10.1) mg/dl Phosphorus (2.5-4.9) mg/dl Magnesium (1.8-2.4) mg/dl Total Bilirubin (0.2-1) mg/dl Direct Bilirubin (0-0.2) mg/dl AST (15-37) U/L ALT (12-78) U/L Alkaline Phosphatase (45-117) U/L Troponin I (0-0.045) ng/ml NT-Pro-B Natriuret Pep (0-900) pg/ml Total Protein (6.4-8.2) gm/dl Albumin (3.4-5.0) gm/dl Globulin (2.5-4.0) gm/dl Albumin/Globulin Ratio (0.9-2) TSH (0.300-4.500) uIu/ml Nasal Screen MRSA (PCR) (Negative) Stl C. diff Tox B Gene (Neg) Influenza Type A (PCR) (Neg) Influenza Type B (PCR) (Neg) 08/20/19 08/20/19 08/20/19 Range/Units 18:52 18:31 18:28 WBC (4.8-10.8) K/uL RBC (4.7-6.1) M/uL Hgb (14.0-18.0) g/dL Hct (42-52) % MCV (80-100) fL MCH (25-34) pg MCHC (32-36) g/dL RDW Std Deviation (36.4-46.3) fL RDW Coeff of Aliyah (11.5-14.5) % Plt Count (130-400) K/uL MPV (7.4-10.4) fL Immature Gran % (Auto) % Neut % (Auto) % Lymph % (Auto) % [place] % (Auto) % Eos % (Auto) % Baso % (Auto) % Immature Gran # (Auto) (0.00-0.02) K/uL Neut # (Auto) (1.4-6.5) K/uL Lymph # (Auto) (1.2-3.4) K/uL [place] # (Auto) (0.11-0.59) K/uL Eos # (Auto) (0-0.5) K/uL Baso # (Auto) (0-0.2) K/uL PT (9.0-12.0) Seconds INR (0.9-1.1) APTT (21.0-31.0) Seconds PTT Ratio Sodium (136-145) mmol/L Potassium (3.5-5.1) mmol/L Chloride (98-107) mmol/L Carbon Dioxide (21-32) mmol/L Anion Gap (3-11) BUN (7-18) mg/dl Creatinine (0.6-1.4) mg/dl Est Cr Clr Drug Dosing Est GFR ( Amer) Est GFR (Non-Af Amer) BUN/Creatinine Ratio (10-20) Glucose (70-99) mg/dl POC Glucose 72 71 (70-99) Lactate 2.3 H* (0.4-2.0) mmol/L Calcium (8.5-10.1) mg/dl Phosphorus (2.5-4.9) mg/dl Magnesium (1.8-2.4) mg/dl Total Bilirubin (0.2-1) mg/dl Direct Bilirubin (0-0.2) mg/dl AST (15-37) U/L ALT (12-78) U/L Alkaline Phosphatase (45-117) U/L Troponin I (0-0.045) ng/ml NT-Pro-B Natriuret Pep (0-900) pg/ml Total Protein (6.4-8.2) gm/dl Albumin (3.4-5.0) gm/dl Globulin (2.5-4.0) gm/dl Albumin/Globulin Ratio (0.9-2) TSH (0.300-4.500) uIu/ml Nasal Screen MRSA (PCR) (Negative) Stl C. diff Tox B Gene (Neg) Influenza Type A (PCR) (Neg) Influenza Type B (PCR) (Neg) 08/20/19 08/20/19 08/20/19 Range/Units 18:05 17:53 17:39 WBC (4.8-10.8) K/uL RBC (4.7-6.1) M/uL Hgb (14.0-18.0) g/dL Hct (42-52) % MCV (80-100) fL MCH (25-34) pg MCHC (32-36) g/dL RDW Std Deviation (36.4-46.3) fL RDW Coeff of Aliyah (11.5-14.5) % Plt Count (130-400) K/uL MPV (7.4-10.4) fL Immature Gran % (Auto) % Neut % (Auto) % Lymph % (Auto) % [place] % (Auto) % Eos % (Auto) % Baso % (Auto) % Immature Gran # (Auto) (0.00-0.02) K/uL Neut # (Auto) (1.4-6.5) K/uL Lymph # (Auto) (1.2-3.4) K/uL [place] # (Auto) (0.11-0.59) K/uL Eos # (Auto) (0-0.5) K/uL Baso # (Auto) (0-0.2) K/uL PT (9.0-12.0) Seconds INR (0.9-1.1) APTT (21.0-31.0) Seconds PTT Ratio Sodium (136-145) mmol/L Potassium (3.5-5.1) mmol/L Chloride (98-107) mmol/L Carbon Dioxide (21-32) mmol/L Anion Gap (3-11) BUN (7-18) mg/dl Creatinine (0.6-1.4) mg/dl Est Cr Clr Drug Dosing Est GFR ( Amer) Est GFR (Non-Af Amer) BUN/Creatinine Ratio (10-20) Glucose (70-99) mg/dl POC Glucose 50 L* 59 L* (70-99) Lactate (0.4-2.0) mmol/L Calcium (8.5-10.1) mg/dl Phosphorus (2.5-4.9) mg/dl Magnesium (1.8-2.4) mg/dl Total Bilirubin (0.2-1) mg/dl Direct Bilirubin (0-0.2) mg/dl AST (15-37) U/L ALT (12-78) U/L Alkaline Phosphatase (45-117) U/L Troponin I (0-0.045) ng/ml NT-Pro-B Natriuret Pep (0-900) pg/ml Total Protein (6.4-8.2) gm/dl Albumin (3.4-5.0) gm/dl Globulin (2.5-4.0) gm/dl Albumin/Globulin Ratio (0.9-2) TSH (0.300-4.500) uIu/ml Nasal Screen MRSA (PCR) (Negative) Stl C. 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 This is a life/limb threatening event. This inclu yunoir time spent evaluating patient, direct bedside care, chart review, placing orders, interpretation of diagnostic studies, discussion with consultants, patient, and/or family members regarding treatment decisions, as well as other required patient management activities. This time is exclusive of all separately billable procedures, and teaching time and separate from and in addition to any other critical care service time. (1) CHF (congestive heart failure) Heart failure chronicity: acute on chronic Heart failure type: unspecified Qualified Code(s): I50.9 - Heart failure, unspecified (2) Sepsis Sepsis acute organ dysfunction status: unspecified Sepsis type: sepsis due to unspecified organism Qualified Code(s): A41.9 - Sepsis, unspecified organism (3) Pneumonia Laterality: left Lung location: unspecified part of lung Pneumonia type: due to unspecified organism Qualified Code(s): J18.9 - Pneumonia, unspecified organism
--- NOTE | 2019-08-21 11:21 | Hospitalist Progress Note ---
Date of Service August 21, 2019 Assessment & Plan (1) Influenza A: 73-year-old male was admitted on 20 August 2019 for hypoglycemia, hypotension, respiratory distress and Influenza A. Influenza A positive, Multifocal pneumonia, COPD, Pulmonary Edema -Recently placed on azithromycin and Tamiflu. No acute respiratory distress -Concern for sepsis in ED. Afebrile, not tachycardic, is tachypneic, hypotensive. Normal room SpO2. WBC 10, platelets 491, lactate 2.3. TnI 0.055. EKG is a ventricularly-paced rhythm. Blood cultures sent. Positive for Influenza A. -CXR notable for cardiomegaly with volume overload and congestive changes similar to previous exam. Also see prior CT chest on Dec suggestive of multifocal pneumonia - Will hold home metolazone, metoprolol, and Entresto given hypotension. Cont IVF with caution given his heart failure, switch to PO in AM with fluid restriction. -Duonebs scheduled, albuterol prn, and solumedrol 40 mg IV q12h. Noncompliant with prescription for trilogy -Blood cx pending -Continue aztreonam, vancomycin, and Tamiflu Hypoglycemia/ DM2 -likely related to sepsis -At home is on glipizide. We will keep on ICU insulin protocol. Mild transaminitis -likely secondary to hypotension/shock liver Acute on chronic renal failure -Improving. Admit Cr 1.94. Likely pre-renal -As above, caution with balance between hypotension + CHF + pulmonary edema -Daily BMP Hyponatremia - Admit sodium 132. Receiving fluids as above, monitoring HTN, HLD, systolic CHF, ischemic cardiomyopathy, prior SC, parox. V tach, PAF, LBBB - Dry weight around 193 lbs. TTE in May 2019 was EF 20-25%, severely reduced LV SF, large area of akinesis (see full report). -patient s/p pacemaker with AICD -continue Xarelto, ASA Anemia Admit Hb 13.4 with recent comparisons in 9-11 range. Continue home iron. FEN/GI: HH Diabetic Diet, Fluid restriction DVT prophylaxis: Xarelto Full Code Dispo: ICU. Remains critically ill requiring vasoactive medication. Supervising Physician Co-Signing Physician Notes Resident Physician Supervision Note: I independently interviewed and examined the patient and verified the novak history and physical, reviewed labs and image studies, discussed the case with the resident Dr. Carson and agree with the findings and care plan. Subjective 73 yo M found in bed this AM in NAD. No reported overnight events. Pt notes feel s improved overall and from respiratory standpoint. Tolerating PO intake. No other acute concerns or complaints. Review of Systems Review of Systems: All systems reviewed & are unremarkable except as noted in HPI & below Physical Exam Constitutional: WD/WN, vitals as above Eyes: PERRL, conjunctivae normal, anicteric sclerae ENMT: external ear and nose normal, oropharynx normal Respiratory: normal respiratory effort; no respiratory distress and no labored breathing insp/exp wheezing, improved Cardiovascular: RRR, no murmur, no edema Gastrointestinal (Abdomen): normal bowel sounds, soft, nontender, no hepatosplenomegaly Skin: no rashes, warm and dry Psychiatric: A+Ox3, euthymic affect Results & Data Vital Signs (Past 12 Hours) Vital Signs Temp Pulse Pulse Resp BP BP Pulse Ox 08/21/19 10:01 77 25 H 96/52 L 94 08/21/19 10:00 79 30 H 93 08/21/19 09:45 76 30 H 101/58 L 93 08/21/19 09:31 71 26 H 100/60 93 08/21/19 09:16 82 39 H 114/49 L 94 08/21/19 09:01 79 31 H 92 08/21/19 09:00 73 32 H 115/62 92 08/21/19 08:45 78 27 H 101/58 L 92 08/21/19 08:31 71 20 109/71 92 08/21/19 08:15 77 24 107/58 L 93 08/21/19 08:01 70 24 94 08/21/19 08:00 36.7 C 68 28 H 115/66 94 08/21/19 07:45 75 16 97/64 L 98 08/21/19 07:35 75 20 94 08/21/19 07:30 63 24 108/68 94 08/21/19 07:15 71 23 100/58 L 95 08/21/19 07:01 78 21 87/50 L 92 08/21/19 07:00 63 17 92 08/21/19 06:15 68 25 H 89/60 L 92 08/21/19 06:01 68 1 L 93 08/21/19 06:00 70 16 102/58 L 96 08/21/19 05:45 75 9 L 94/64 L 94 08/21/19 05:30 72 29 H 94/52 L 92 08/21/19 05:15 78 33 H 102/58 L 93 08/21/19 05:01 68 27 H 92 08/21/19 05:00 79 25 H 102/57 L 93 08/21/19 04:46 74 34 H 93 08/21/19 04:45 72 24 103/57 L 93 08/21/19 04:31 74 27 H 94 08/21/19 04:30 70 77 16 105/58 L 105/58 L 94 08/21/19 04:16 80 21 88/51 L 95 08/21/19 04:15 78 29 H 95 08/21/19 04:01 71 30 H 95 08/21/19 04:00 65 67 16 113/65 113/65 96 08/21/19 03:46 67 24 113/64 94 08/21/19 03:45 65 15 113/64 96 08/21/19 03:31 70 24 92 08/21/19 03:30 76 71 16 107/65 107/65 91 08/21/19 03:16 76 23 104/71 87 L 08/21/19 03:15 71 24 109/71 94 08/21/19 03:01 64 20 92 08/21/19 03:00 72 26 H 104/71 94 08/21/19 02:46 70 28 H 99/62 L 92 08/21/19 02:45 75 29 H 99/62 L 93 08/21/19 02:31 71 28 H 93 08/21/19 02:30 74 23 99/54 L 93 08/21/19 02:16 67 25 H 97/51 L 94 08/21/19 02:15 75 6 L 97/51 L 91 08/21/19 02:01 76 18 82/72 L 92 08/21/19 02:00 75 29 H 93 08/21/19 01:46 67 26 H 103/70 93 08/21/19 01:31 71 3 L 93 08/21/19 01:30 72 12 96/64 L 94 08/21/19 01:25 75 12 105/63 94 08/21/19 01:16 75 32 H 92 08/21/19 01:01 74 28 H 92 08/21/19 01:00 72 34 H 97/50 L 91 08/21/19 00:45 73 32 H 79/47 L 93 08/21/19 00:31 77 24 95 08/21/19 00:30 86 29 H 91/47 L 93 08/21/19 00:15 77 7 L 95/64 L 94 08/21/19 00:05 79 25 H 94 08/21/19 00:01 79 34 H 94 08/21/19 00:00 80 31 H 83/64 L 94 08/20/19 23:46 79 25 H 117/58 L 94 08/20/19 23:37 72 15 111/65 96 08/20/19 23:30 86 19 94 08/20/19 23:16 77 31 H 93 08/20/19 23:15 73 32 H 96/62 L 94 Laboratory Results Laboratory Results - last 24 hr 08/20/19 08/20/19 08/20/19 17:39 17:53 18:05 WBC RBC Hgb Hct MCV MCH MCHC RDW Std Deviation RDW Coeff of Aliyah Plt Count MPV Immature Gran % (Auto) Neut % (Auto) Lymph % (Auto) [place] % (Auto) Eos % (Auto) Baso % (Auto) Immature Gran # (Auto) Neut # (Auto) Lymph # (Auto) [place] # (Auto) Eos # (Auto) Baso # (Auto) PT INR APTT PTT Ratio Sodium Potassium Chloride Carbon Dioxide Anion Gap BUN Creatinine Est Cr Clr Drug Dosing Est GFR ( Amer) Est GFR (Non-Af Amer) BUN/Creatinine Ratio Glucose POC Glucose 59 L* 50 L* Lactate Calcium Phosphorus Magnesium Total Bilirubin Direct Bilirubin AST ALT Alkaline Phosphatase Troponin I NT-Pro-B Natriuret Pep Total Protein Albumin Globulin Albumin/Globulin Ratio TSH Nasal Screen MRSA (PCR) Stl C. diff Tox B Gene Influenza Type A (PCR) Pos for Influ A A* Influenza Type B (PCR) Neg for Influ B 08/20/19 08/20/19 08/20/19 18:28 18:31 18:52 WBC RBC Hgb Hct MCV MCH MCHC RDW Std Deviation RDW Coeff of Aliyah Plt Count MPV Immature Gran % (Auto) Neut % (Auto) Lymph % (Auto) [place] % (Auto) Eos % (Auto) Baso % (Auto) Immature Gran # (Auto) Neut # (Auto) Lymph # (Auto) [place] # (Auto) Eos # (Auto) Baso # (Auto) PT INR APTT PTT Ratio Sodium Potassium Chloride Carbon Dioxide Anion Gap BUN Creatinine Est Cr Clr Drug Dosing Est GFR ( Amer) Est GFR (Non-Af Amer) BUN/Creatinine Ratio Glucose POC Glucose 71 72 Lactate 2.3 H* Calcium Phosphorus Magnesium Total Bilirubin Direct Bilirubin AST ALT Alkaline Phosphatase Troponin I NT-Pro-B Natriuret Pep Total Protein Albumin Globulin Albumin/Globulin Ratio TSH Nasal Screen MRSA (PCR) Stl C. diff Tox B Gene Influenza Type A (PCR) Influenza Type B (PCR) 08/20/19 08/20/19 08/20/19 19:39 19:41 20:20 WBC RBC Hgb Hct MCV MCH MCHC RDW Std Deviation RDW Coeff of Aliyah Plt Count MPV Immature Gran % (Auto) Neut % (Auto) Lymph % (Auto) [place] % (Auto) Eos % (Auto) Baso % (Auto) Immature Gran # (Auto) Neut # (Auto) Lymph # (Auto) [place] # (Auto) Eos # (Auto) Baso # (Auto) PT INR APTT PTT Ratio Sodium Potassium Chloride Carbon Dioxide Anion Gap BUN Creatinine Est Cr Clr Drug Dosing Est GFR ( Amer) Est GFR (Non-Af Amer) BUN/Creatinine Ratio Glucose POC Glucose 205 H 191 H Lactate 5.5 H* Calcium Phosphorus Magnesium Total Bilirubin Direct Bilirubin AST ALT Alkaline Phosphatase Troponin I NT-Pro-B Natriuret Pep Total Protein Albumin Globulin Albumin/Globulin Ratio TSH Nasal Screen MRSA (PCR) Stl C. diff Tox B Gene Influenza Type A (PCR) Influenza Type B (PCR) 08/20/19 08/20/19 08/20/19 20:25 21:17 21:44 WBC RBC Hgb Hct MCV MCH MCHC RDW Std Deviation RDW Coeff of Aliyah Plt Count MPV Immature Gran % (Auto) Neut % (Auto) Lymph % (Auto) [place] % (Auto) Eos % (Auto) Baso % (Auto) Immature Gran # (Auto) Neut # (Auto) Lymph # (Auto) [place] # (Auto) Eos # (Auto) Baso # (Auto) PT INR APTT PTT Ratio Sodium Potassium Chloride Carbon Dioxide Anion Gap BUN Creatinine Est Cr Clr Drug Dosing Est GFR ( Amer) Est GFR (Non-Af Amer) BUN/Creatinine Ratio Glucose POC Glucose 167 H 181 H Lactate Calcium Phosphorus Magnesium Total Bilirubin Direct Bilirubin AST ALT Alkaline Phosphatase Troponin I 0.059 H* NT-Pro-B Natriuret Pep Total Protein Albumin Globulin Albumin/Globulin Ratio TSH Nasal Screen MRSA (PCR) Stl C. diff Tox B Gene Influenza Type A (PCR) Influenza Type B (PCR) 08/20/19 08/20/19 08/20/19 Unknown Unknown Unknown WBC 10.14 RBC 4.21 L Hgb 13.4 L Hct 40.1 L MCV 95.2 MCH 31.8 MCHC 33.4 RDW Std Deviation 62.9 H RDW Coeff of Aliyah 18.0 H Plt Count 491 H MPV 10.4 Immature Gran % (Auto) 0.2 Neut % (Auto) 90.2 Lymph % (Auto) 3.1 [place] % (Auto) 6.4 Eos % (Auto) 0.0 Baso % (Auto) 0.1 Immature Gran # (Auto) 0.02 Neut # (Auto) 9.15 H Lymph # (Auto) 0.31 L [place] # (Auto) 0.65 H Eos # (Auto) 0.00 Baso # (Auto) 0.01 PT INR APTT PTT Ratio Sodium 132 L Potassium 4.5 Chloride 98 Carbon Dioxide 25 Anion Gap 8.0 BUN 65 H Creatinine 1.94 H Est Cr Clr Drug Dosing Not Reportable Est GFR ( Amer) 38.1 Est GFR (Non-Af Amer) 32.9 BUN/Creatinine Ratio 33.6 H Glucose 45 L* POC Glucose Lactate Calcium 9.0 Phosphorus Magnesium 2.4 Total Bilirubin Direct Bilirubin AST ALT Alkaline Phosphatase Troponin I 0.055 H* NT-Pro-B Natriuret Pep 7896 H Total Protein Albumin Globulin Albumin/Globulin Ratio TSH Nasal Screen MRSA (PCR) Stl C. diff Tox B Gene Influenza Type A (PCR) Influenza Type B (PCR) 08/20/19 08/20/19 08/20/19 Unknown Unknown Unknown WBC RBC Hgb Hct MCV MCH MCHC RDW Std Deviation RDW Coeff of Aliyah Plt Count MPV Immature Gran % (Auto) Neut % (Auto) Lymph % (Auto) [place] % (Auto) Eos % (Auto) Baso % (Auto) Immature Gran # (Auto) Neut # (Auto) Lymph # (Auto) [place] # (Auto) Eos # (Auto) Baso # (Auto) PT 12.9 H INR 1.3 H APTT 32.8 H PTT Ratio 1.2 Sodium Potassium Chloride Carbon Dioxide Anion Gap BUN Creatinine Est Cr Clr Drug Dosing Est GFR ( Amer) Est GFR (Non-Af Amer) BUN/Creatinine Ratio Glucose POC Glucose Lactate Calcium Phosphorus Magnesium Total Bilirubin 1.2 H Direct Bilirubin 0.5 H AST 80 H ALT 49 Alkaline Phosphatase 76 Troponin I NT-Pro-B Natriuret Pep Total Protein 8.2 Albumin 3.5 Globulin Albumin/Globulin Ratio TSH Nasal Screen MRSA (PCR) Negative Stl C. diff Tox B Gene Influenza Type A (PCR) Influenza Type B (PCR) 08/20/19 08/21/19 08/21/19 Unknown 00:25 02:00 WBC RBC Hgb Hct MCV MCH MCHC RDW Std Deviation RDW Coeff of Aliyah Plt Count MPV Immature Gran % (Auto) Neut % (Auto) Lymph % (Auto) [place] % (Auto) Eos % (Auto) Baso % (Auto) Immature Gran # (Auto) Neut # (Auto) Lymph # (Auto) [place] # (Auto) Eos # (Auto) Baso # (Auto) PT INR APTT PTT Ratio Sodium 128 L Potassium 4.9 Chloride 100 Carbon Dioxide 19 L Anion Gap 9.0 BUN 61 H Creatinine 1.73 H Est Cr Clr Drug Dosing 41.9 Est GFR ( Amer) 43.8 Est GFR (Non-Af Amer) 37.8 BUN/Creatinine Ratio 35.5 H Glucose 293 H POC Glucose 313 H* Lactate Calcium 7.5 L D Phosphorus 3.6 Magnesium 2.2 Total Bilirubin 1.2 H Direct Bilirubin 0.7 H AST 60 H ALT 41 Alkaline Phosphatase 67 Troponin I 0.059 H* NT-Pro-B Natriuret Pep Total Protein 6.8 Albumin 2.8 L Globulin 4.0 Albumin/Globulin Ratio 0.7 L TSH 0.741 Nasal Screen MRSA (PCR) Stl C. diff Tox B Gene Negative Cdiff Gene Influenza Type A (PCR) Influenza Type B (PCR) 08/21/19 08/21/19 08/21/19 02:00 02:00 06:09 WBC 8.57 RBC 3.64 L Hgb 11.3 L Hct 34.1 L MCV 93.7 MCH 31.0 MCHC 33.1 RDW Std Deviation 61.9 H RDW Coeff of Aliyah 18.0 H Plt Count 473 H MPV 10.5 H Immature Gran % (Auto) 0.1 Neut % (Auto) 93.7 Lymph % (Auto) 2.0 [place] % (Auto) 4.0 Eos % (Auto) 0.0 Baso % (Auto) 0.2 Immature Gran # (Auto) 0.01 Neut # (Auto) 8.03 H Lymph # (Auto) 0.17 L [place] # (Auto) 0.34 Eos # (Auto) 0.00 Baso # (Auto) 0.02 PT INR APTT PTT Ratio Sodium Potassium Chloride Carbon Dioxide Anion Gap BUN Creatinine Est Cr Clr Drug Dosing Est GFR ( Amer) Est GFR (Non-Af Amer) BUN/Creatinine Ratio Glucose POC Glucose 298 H Lactate 1.4 Calcium Phosphorus Magnesium Total Bilirubin Direct Bilirubin AST ALT Alkaline Phosphatase Troponin I NT-Pro-B Natriuret Pep Total Protein Albumin Globulin Albumin/Globulin Ratio TSH Nasal Screen MRSA (PCR) Stl C. diff Tox B Gene Influenza Type A (PCR) Influenza Type B (PCR) Medications Administered Current Inpatient Medications Albuterol (Duoneb) 3 ml NEB Q4R [facility] Stop: 09/19/19 22:59 Last Admin: 08/21/19 07:32 Dose: 3 ml Documented by: Albuterol (Ventolin 0.083% 2.5mg/3ml) 2.5 mg NEB Q2H PRN PRN Reason: Shortness Of Breath Or Wheezing Stop: 09/19/19 21:22 Aspirin (Ecotrin Ectab) 81 mg PO DAILY [facility] Stop: 09/20/19 08:59 Last Admin: 08/21/19 08:36 Dose: 81 mg Documented by: Dextrose (Dextrose 50%) 25 - 50 ml IV UD PRN; Protocol PRN Reason: Hypoglycemia Protocol Stop: 09/19/19 21:22 Ferrous Sulfate (Feosol) 325 mg PO DAILY [facility] Stop: 09/20/19 08:59 Last Admin: 08/21/19 08:36 Dose: 325 mg Documented by: Glucagon (Glucagen) 1 mg SQ UD PRN; Protocol PRN Reason: Hypoglycemia Protocol Stop: 09/19/19 21:22 Glucose (Dex4 Glucose) 4 - 8 tabs PO UD PRN; Protocol PRN Reason: Hypoglycemia Protocol Stop: 09/19/19 21:22 Glucose (Glucose 40%) 15 - 30 gm PO UD PRN; Protocol PRN Reason: Hypoglycemia Protocol Stop: 09/19/19 21:22 Aztreonam 2,000 mg/ Dextrose 110 mls @ 100 mls/hr IV Q8H [facility]; Protocol Stop: 08/28/19 03:59 Last Infusion: 08/21/19 05:15 Dose: Infused Documented by: Methylprednisolone 40 mg/ (Syringe) 0.64 mls @ 1.5 mls/min IV Q12H [facility] Stop: 09/19/19 21:59 Last Admin: 08/20/19 22:08 Dose: 1.5 mls/min Documented by: Norepinephrine Bitartrate 8 mg (/ Dextrose) 508 mls @ 13.884 mls/hr IV .Q24H YARELY; Protocol Stop: 09/19/19 22:42 Last Titration: 08/21/19 07:07 Dose: 0.04 mcg/kg/min, 13.9 mls/hr Documented by: Vancomycin HCl 1,250 mg/ (Sodium Chloride) 275 mls @ 125 mls/hr IV Q16H [facility] Stop: 08/28/19 11:59 Influenza Virus Vaccine (Fluzone High-Dose Pf) 0.5 ml IM .ONCE ONE Stop: 08/22/19 08:01 Insulin Aspart (Novolog Flexpen) 0 units SC Q6 [facility] Stop: 09/20/19 05:59 Last Admin: 08/21/19 06:11 Dose: 4 units Documented by: Miscellaneous (Icu Protocol For Hyperglycemia) 1 ea N/A PRN PRN; Protocol PRN Reason: Hyperglycemia Protocol Stop: 08/22/19 21:22 Miscellaneous (Carbohydrates For Hypoglycemia) 15 - 30 gm PO UD PRN PRN Reason: Hypoglycemia Protocol Stop: 09/19/19 21:22 Miscellaneous Information (Consult) 1 ea N/A UD PRN PRN Reason: Consult Stop: 09/19/19 18:49 Last Admin: 08/20/19 20:10 Dose: 1 ea Documented by: Oseltamivir Phosphate (Tamiflu) 30 mg PO BID [facility] Stop: 08/25/19 21:59 Last Admin: 08/20/19 21:48 Dose: 30 mg Documented by: Potassium Chloride (Klor-Con M20) 20 meq PO DAILY [facility] Stop: 09/20/19 08:59 Last Admin: 08/21/19 08:36 Dose: 20 meq Documented by: Rivaroxaban (Xarelto) 15 mg PO QPM [facility]ELY Stop: 09/19/19 21:22 Last Admin: 08/20/19 21:48 Dose: 15 mg Documented by: Vitamin D (Vitamin D3) 5,000 units PO DAILY [facility] Stop: 09/20/19 08:59 Last Admin: 08/21/19 08:34 Dose: 5,000 units Documented by: Resident Activity Tracking Resident Involvement: Resident Care Provided Care Provided: Adult Hospital Medicine
[2019-08-21] MEDS ORDERED: PHARMACY GLYCEMIC MGMT CONSULT PRN (11:47)
[2019-08-21] MEDS ORDERED: VANCOMYCIN HCL 1,250 MG in SODIUM CHLORIDE 0.9% 250 ML IV SCH (12:00)
[2019-08-21] MEDS ORDERED: INSULIN HUMAN NPH SC ONE (13:00)
--- NOTE | 2019-08-21 13:13 | Pharmacy Report ---
Glycemic Control Consultation - Date of Service August 21, 2019 - Scope Scope: Glycemic Pharmacist consulted for glycemic control and to write orders per [facility] inpatient glycemic control protocol - Objective Weight: 105.9 kg Accuchecks BSG (last 24hrs): 08/20/19 08/20/19 08/20/19 17:39 17:53 18:28 Glucose POC Glucose 59 L* 50 L* 71 08/20/19 08/20/19 08/20/19 18:52 19:39 19:41 Glucose POC Glucose 72 205 H 191 H 08/20/19 08/20/19 08/20/19 20:25 21:17 Unknown Glucose 45 L* POC Glucose 167 H 181 H 08/21/19 08/21/19 08/21/19 00:25 02:00 06:09 Glucose 293 H POC Glucose 313 H* 298 H 08/21/19 08/21/19 11:31 11:32 Glucose POC Glucose 282 H 302 H* Laboratory Data (last 24hrs): 08/20/19 08/21/19 Unknown 02:00 Potassium 4.5 4.9 Carbon Dioxide 25 19 L Anion Gap 8.0 9.0 Creatinine 1.94 H 1.73 H Est Cr Clr Drug Dosing Not Reportable 41.9 HbA1c: 5.6% 03/28/19 need updated value - Recent Pertinent Medications Outpatient Anti-diabetic Regimen: * Glipizide The patient is currently receiving: * Basal insulin: None * Correctional Insulin: Novolog Correction per scale ACHS Goal Range: Low 140 mg/dL - High 180 mg/dL Correction Factor: 35 mg/dL/unit * Prandial insulin: Per carb ratio of 1 unit per 20 grams CHO consumed * Oral Agents: On hold for admission Risk Factors for Insulin Resistance: * Steroids * Infection * Pressors - Assessment & Plan Assessment & Plan: ASSESSMENT: * 73yo T2DM male admitted for hypotension, influenza A+, and PNA. * Pt with multiple risk factors for insulin resistance including: steroids, pressors, infection. * BSGs SEVERE hyperglycemia for ICU (BSG >219) and hospital wide (BSG >300). Per protocol, IV insulin infusion should be started. However, RN asking that we try aggressive SQ insulin dosing first. If BSG still >219 at 1800 will initiate IV insulin infusion per protocol. * Will use high stress weight based dosing for steroids and titrate based on BSG trends. PLAN FOR INPATIENT GLYCEMIC CONTROL: * Starting IV insulin infusion per protocol @ 1800 if BSG >219 * Goal Range 140 - 180 mg/dl * In the critical care setting, continuous IV insulin infusion has been shown to be the best method for achieving glycemic targets. * Can stop IV insulin infusion when BSG <180 x 2 AND IV insulin infusion rate is 1 unit/hr or below. * Holding outpatient oral diabetes medications * Basal insulin * NPH 40 units SQ x 1 dose NOW and then 25 units SQ BID * Dose will need decreased with each step down in steroid dosing * Bolus insulin * NovoLog per scale ACHS or Q6hrs while NPO * Goal Range: Low 120 mg/dL - High 150 mg/dL * Correction Factor: 15 mg/dL/unit * Nutritional / Prandial insulin per carb ratio of 1 unit per 5 grams CHO consumed * Please note that the plan above was derived based on current level of insulin resistance and hospital stress. These recommendations are appropriate for inpatient admission only. Plan of care upon discharge will need to be reassessed to avoid potential outpatient hypo/hyperglycemia. Thank you.
[2019-08-21] MEDS: OSELTAMIVIR PHOSPHATE SUSP 30 MG/5 ML UDP PO SCH ×2 (14:35→20:27)
[2019-08-21] MEDS: methylPREDNISolone 40 MG in SYRINGE 0 ML IV SCH ×2 (14:35→21:27)
[2019-08-21] MEDS: AZITHROMYCIN 250 MG TAB PO SCH (17:14)
[2019-08-21] MEDS: RIVAROXABAN 15 MG TAB PO SCH ×2 (20:28→20:30)
[2019-08-21] MEDS: INSULIN HUMAN NPH SC SCH (21:28)
[2019-08-22] MEDS ORDERED: INSULIN ASPART 100 UNITS/ML 3 ML PEN SC SCH (02:00)
[2019-08-22] MEDS: ALBUT/IPRATROP 3MG/0.5MG NEB 3 ML VIAL NEB SCH ×6 (03:40→23:06)
[2019-08-22 04:18] LABS: Basophils # (auto) 0.01 K/uL (0-0.2); Basophils % (auto) 0.2 %; Hematocrit (blood only) 33.5 % (42-52); Immature Granulocytes # (auto) 0.03 K/uL (0.00-0.02); Immature Granulocytes % (auto) 0.5 %; Lymphocytes # (auto) 0.26 K/uL (1.2-3.4); Lymphocytes % (auto) 4.4 %; Mean Corpuscular Hemoglobin 30.6 pg (25-34); Mean Corpuscular Hgb Conc 32.8 g/dL (32-36); Mean Corpuscular Volume 93.1 fL (80-100); Mean Platelet Volume 10.5 fL (7.4-10.4); Monocytes # (auto) 0.28 K/uL (0.11-0.59); Monocytes % (auto) 4.7 %; Neutrophils # (auto) 5.38 K/uL (1.4-6.5); Neutrophils % (auto) 90.2 %; Platelet Count 375 K/uL (130-400); RDW Coefficient of Variation 17.5 % (11.5-14.5); RDW Standard Deviation 59.8 fL (36.4-46.3); White Blood Count 5.96 K/uL (4.8-10.8)
[2019-08-22 04:25] LABS: INR 1.3 (0.9-1.1); Prothrombin Time 13.2 Seconds (9.0-12.0)
[2019-08-22 04:31] LABS: Albumin Globulin Ratio 0.6 (0.9-2); Albumin Level 2.5 gm/dl (3.4-5.0); Bilirubin,Total 0.8 mg/dl (0.2-1); Creatinine Clr Calc Pharmacy 45.5 ml/min; Est GFR (African American) 48.1; Est GFR (Non-African American) 41.5; Globulin 3.9 gm/dl (2.5-4.0); Magnesium 2.6 mg/dl (1.8-2.4); Potassium 4.2 mmol/L (3.5-5.1); Total Protein 6.4 gm/dl (6.4-8.2)
[2019-08-22 04:43] LABS: Phosphorus 2.9 mg/dl (2.5-4.9)
[2019-08-22] MEDS: NOREPINEPHRINE BIT INJ 8 MG in DEXTROSE 5% 500 ML IV SCH (07:18)
--- NOTE | 2019-08-22 07:34 | Critical Care Progress Note ---
Date of Service August 22, 2019 Assessment & Plan (1) Sepsis: Reason Critically Ill: 73-year-old male admitted to the ICU with sepsis, hypotension, influenza A, hypoglycemia Neuro - [facility] ICU: Negative oriented to person, place, time, and situation No focal deficits on exam Cardiac - Systolic CHF/hypotensioncardiogenic versus septic shock -Lactate elevated and patient tested positive for influenza A, see treatment of sepsis below echo from 06/18 showed EF 20 to 25% with significant akinesis of the anterior wall -Currently on Lasix and metolazone at home -CT chest and CXR suggestive of pulmonary edema, BNP elevated -We will continue ASA, holding metoprolol and metolazone in the setting of hypotension -We will spot diuresis with IV Lasix, considering ROGELIO and hypotension -Patient transitioned to PO diet with 1500 ml fluid restriction this morning, we will be cautious with any fluid resuscitation given status of patient's heart -We can restart on Levophed drip for maps greater than 65 if hypotension persists -Monitor strict I's and O's and daily weights -Continue to monitor on telemetry Proximal V. tach/PAF/LBBBpatient s/p pacemaker with AICD -We will continue Xarelto, ASA -Holding Metoprolol in the setting of hypotension -Optimizing electrolytes as needed Respiratory - Respiratory distress/influenza A pneumoniapulmonary edema versus pneumonia versus COPD - No longer in respiratory distress patient's currently admitted for influenza A, patient was placed on prophylaxis Tamiflu and azithromycin following bronchitis with hemoptysis 2 days ago -Influenza A positive on admission -CT chest was suggestive of multifocal bronchopneumonia and components of pulmonary edema history of 30 to 40 pack/year tobacco abuse quit decades ago -Was followed by pulmonology this fall during prior admission and was scheduled for PFTs outpatient -Reports he has been noncompliant with prescription for trilogy -Patient wheezing on exam, started on DuoNeb and IV Solu-Medrol -Currently maintaining oxygen saturations on room air, but was given O2 overnight will continue to monitor as patient wakes up today and try to wean back to room air GI - Heart healthy diabetic diet, fluid restriction Mild transaminitislikely secondary to hypotension/shock liver -We will trend LFTs, keep maps greater than 65, expectation to improve Improving RENAL/LYTES - ROGELIO on CKDbaseline creatinine 1.6 with creatinine on admission 1.9 -likely prerenal/ATN secondary to hypotension -Given 1 L D5 normal saline in ED, continue soft IV fluid resuscitation given CHF for now -Maintain maps greater than 65 -Avoid nephrotoxins -creatinine appears to have improved back to baseline - Strict I's and O's ENDO - DM type II/hypoglycemialikely related to home med glipizide in the setting of influenza/sepsis -Bolused with D5 and normal saline in the ED, now on continuous IV fluids wi th dextrose -Replete blood glucose 181, pharmacy consulted -Continue monitoring frequent blood glucose -Hypoglycemic protocol HEME - H&H stable, monitor routine CBCs ID - Sepsispatient positive for influenza A, blood cultures negative after 24 hours, lactate returned to baseline -UA negative for UTI -CT from 08/18 suggestive of bronchopneumonia -Patient on day 3 of azithromycin and Tamiflu Stopping aztreonam LINES/IV ACCESS - Peripheral IVs DVT PROPHYLAXIS - SCDs, patient on Xarelto Patient off of pressors but MAP still hovering around 65, will continue to watch in ICU and see if he continues to improve. Feeling improved will allow him to trial Jell-O today and if tolerates will progress diet as tolerated (2) Pneumonia: (3) Hypoglycemia: (4) CHF (congestive heart failure): (5) Influenza A: (6) Dyspnea: (7) Acute on chronic renal failure: (8) ICD (implantable cardioverter-defibrillator) in place: (9) Atrial fibrillation: Supervising Physician Co-Signing Physician Notes Dr. Choi was the resident-physician during care of patient. I separately evaluated patient for novak portions of the history and the exam. I was present during the critical portion of medical decision making, and I discussed the case with the resident. I generally agree with the findings and plan except for any additions/exceptions noted. Patient is a 73-year-old with past medical history of CHF ejection fraction 20- 25%, was admitted because of shock and respiratory distress likely secondary to multilobar pneumonia on top of influenza A. Patient was on Tamiflu at the time of examination and is being continued. At the time of examination early in the morning patient mean arterial pressure was in the low 60s although patient was asymptomatic. On asking patient patient states that his blood pressure usually stays around 100/70 after exercise. Patient denies any dizziness, no headache, no nausea, no vomiting. No hematuria or hematochezia. Tolerating diet. Currently the patient is on azithromycin. Patient is allergic to penicillin asking what is the allergy said in the 80s he took penicillin and he felt warm. He did not have any shortness of breath or any rash from it. We will give the patient Rocephin and see how he tolerates it. Cutdown Solu-Medrol to once daily. We will transition her to p.o. tomorrow. Physical therapy eval. Observe the patient for 24 hours more in the ICU given the patient is borderline hypotensive. I have personally spent 45 minutes of critical care time in the direct management of this patient. This is a life/limb threatening event. This includes time spent evaluating patient, direct bedside care, chart review, placing orders, interpretation of diagnostic studies, discussion with consultants, patient, and/or family members regarding treatment decisions, as well as other required patient management activities. This time is exclusive of all separately billable procedures, and teaching time and separate from and in addition to any other critical care service time. Subjective Patient reports feeling much better this morning, does not have any shortness of breath, chills or rigors like he was having previously. He tells me he was noncompliant with his trilogy inhaler because he read it can cause pneumonia and he is occasionally noncompliant with his coumadin as well. He denies any other symptoms at this time on full review of systems besides fatigue. No lightheadedness, no presyncope, no confusion, no fevers, chills, no chest pain, no Gi symptoms, no urinary symptoms. Review of Systems Review of Systems: All systems reviewed & are unremarkable except as noted in HPI & below Physical Exam Constitutional: well developed and well nourished; no acute distress Eyes: PERRL, conjunctivae normal, anicteric sclerae ENMT: external ear and nose normal, oropharynx normal Respiratory: normal respiratory effort, lungs clear to auscultation Auscultation: no crackles, no rales, no rhonchi and no wheezes Cardiovascular: Rate/Rhythm: regular rate and regular rhythm Heart Sounds: no click, no gallop, no murmur and no cardiac rub Extremities: no edema Gastrointestinal (Abdomen): normal bowel sounds, soft, nontender, no hepatosplenomegaly Results & Data Vital Signs (Past 12 Hours) Vital Signs Temp Pulse Resp BP Pulse Ox Pulse Ox 08/22/19 07:00 69 23 83/56 L 96 08/22/19 06:00 64 20 91/45 L 98 08/22/19 05:00 63 18 93/44 L 98 08/22/19 04:00 36.7 C 77 20 95/50 L 97 08/22/19 03:00 60 14 104/64 98 08/22/19 02:00 70 18 90/64 L 96 08/22/19 01:00 67 18 110/63 95 08/22/19 00:00 36.6 C 71 22 103/47 L 95 08/21/19 23:22 82 20 96 08/21/19 23:00 68 18 88/44 L 95 08/21/19 22:00 76 20 101/59 L 95 08/21/19 21:23 95 08/21/19 21:00 79 22 105/60 95 08/21/19 20:08 88 22 97 08/21/19 20:00 36.7 C 88 22 96/63 L 95 08/22/19 04:00 08/22/19 04:00 Critical Care Time Critical Care Time: Yes Total Critical Care Time: 45 Resident Activity Tracking Resident Involvement: Resident Care Provided Care Provided: Adult Hospital Medicine (1) CHF (congestive heart failure) Heart failure chronicity: acute on chronic Heart failure type: unspecified Qualified Code(s): I50.9 - Heart failure, unspecified (2) Sepsis Sepsis acute organ dysfunction status: unspecified Sepsis type: sepsis due to unspecified organism Qualified Code(s): A41.9 - Sepsis, unspecified organism (3) Pneumonia Laterality: left Lung location: unspecified part of lung Pneumonia type: due to unspecified organism Qualified Code(s): J18.9 - Pneumonia, unspecified organism
[2019-08-22] MEDS: INSULIN ASPART 100 UNITS/ML 3 ML PEN SC SCH ×4 (07:38→20:38)
[2019-08-22] MEDS: ASPIRIN 81 MG ECTAB PO SCH (07:39)
[2019-08-22] MEDS: FERROUS SULFATE 325 MG TAB PO SCH (07:39)
[2019-08-22] MEDS: AZITHROMYCIN 250 MG TAB PO SCH (07:40)
[2019-08-22] MEDS: POTASSIUM CHLORIDE 20 MEQ TABCR PO SCH (07:40)
[2019-08-22] MEDS: CHOLECALCIFEROL 1,000 UNITS TAB PO SCH (07:41)
[2019-08-22] MEDS: INSULIN HUMAN NPH SC SCH ×2 (07:42→20:37)
[2019-08-22] MEDS: OSELTAMIVIR PHOSPHATE SUSP 30 MG/5 ML UDP PO SCH ×2 (07:45→20:31)
[2019-08-22] MEDS: methylPREDNISolone 40 MG in SYRINGE 0 ML IV SCH ×2 (07:46→09:55)
[2019-08-22] MEDS ORDERED: INFLUENZA Vaccine HIGH DOSE 65+yrs 0.5 mL Syr IM ONE (08:00)
[2019-08-22] MEDS: ACETYLCYSTEINE 20% INHAL SOLN 30ML***DISPENSED BY RESP. INH SCH ×2 (08:38→19:16)
[2019-08-22] MEDS ORDERED: RIVAROXABAN 15 MG TAB PO SCH (09:00)
[2019-08-22] MEDS ORDERED: POLYETHYLENE (MIRALAX) 17 GM PACK PO PRN ×2 (09:42)
[2019-08-22] MEDS ORDERED: cefTRIAXone SODIUM 1,000 MG in DEXTROSE 5% 50 ML IV SCH (09:45)
[2019-08-22] MEDS: cefTRIAXone SODIUM 2,000 MG in DEXTROSE 5% 50 ML IV SCH (10:20)
--- NOTE | 2019-08-22 10:36 | Pharmacy Report ---
Pharmacy Glycemic Short Note 2 - Date of Service August 22, 2019 - Glycemic Short BSG Results (Last 24 hours): 08/21/19 08/21/19 08/21/19 11:31 11:32 18:22 Glucose POC Glucose 282 H 302 H* 248 H 08/21/19 08/22/19 08/22/19 21:21 01:52 04:00 Glucose 132 H POC Glucose 262 H 165 H 08/22/19 08/22/19 05:53 07:26 Glucose POC Glucose 167 H 168 H OUTPATIENT ANTIDIABETIC REGIMEN: * glipizide * A1c: 5.6% ASSESSMENT: 08/22: * Patients' fasting BSG much improved this morning. Will receive 15 units of NPH * Solumedrol changed to 40mg once daily (from twice daily) this morning. Will adjust evening scale and loosen novolog scale with lunch This will need further adjustment as steroids are tapered 08/21 * 73yo T2DM male admitted for hypotension, influenza A+, and PNA. * Pt with multiple risk factors for insulin resistance including: steroids, pressors, infection. * BSGs SEVERE hyperglycemia for ICU (BSG >219) and hospital wide (BSG >300). Per protocol, IV insulin infusion should be started. However, RN asking that we try aggressive SQ insulin dosing first. If BSG still >219 at 1800 will initiate IV insulin infusion per protocol. * Will use high stress weight based dosing for steroids and titrate based on BSG trends. PLAN FOR INPATIENT GLYCEMIC CONTROL: * Hold outpatient oral diabetes medications * Basal insulin * NPH 15 units SQ this morning * NPH scale this evening (10 or 15 based on BSG-See MAR for details) * Bolus insulin * NovoLog per scale ACHS or Q6hrs while NPO * Goal Range: Low 120 mg/dL - High 150 mg/dL * Correction Factor: 20 mg/dL/unit * Nutritional / Prandial insulin per carb ratio of 1 unit per 7 grams CHO consumed
--- NOTE | 2019-08-22 12:44 | Billing Data ---
Date of Service August 22, 2019 Coding Level of Care Code Critical Care 1st 30-74 mins Time Spent (min) 45
--- NOTE | 2019-08-22 12:47 | Hospitalist Progress Note ---
Date of Service August 22, 2019 Assessment & Plan (1) Influenza A: Mr. Das is a 73yo M with a PMHx of CHF, type 2 diabetes, pAfib, CKD, dyslipidemia, hypertension, left bundle branch block, paroxysmal V. tach, and gout who has been admitted for septic shock in the setting of influenza A. Sepsis 2/2 influenza +/-superimposed pneumonia Flu a positive on admission CT chest shows multifocal bronchopneumonia with component of pulmonary edema Lactate 5.5 normalized to 1.4 yesterday Admit to the ICU for pressor requirement, weaned from pressors last night. Continue Tamiflu Empiric Vanco/aztreonam narrowed to azithromycin Continue azithromycin 5-day course Given patient's history concerning for subclinical recurrent pneumonia recommend procalcitonin at/near discharge Systolic CHF Echo 06/18 showed EF 20-25% with anterior wall akinesis CT chest, CXR suggestive of fluid overload, BNP elevated Continue aspirin Hold metoprolol, metolazone for hypotension Periodic fluid reassessment and IV Lasix as needed 1500 cc fluid restriction V. tach/PAF/LBBB Status post pacemaker with AICD Continue Xarelto Continue aspirin as above Metoprolol held as above Transaminitis Likely 2/2 shock liver in the setting of sepsis Trend LFTs ROGELIO on CKD Baseline creatinine 1.6 Creatinine acutely elevated to 1.9, currently downtrending to 1.6 Gentle fluid hydration given severely reduced EF Type 2 diabetes mellitus, presentation with hypoglycemia Suspect hypoglycemia in the setting of acute illness in combination with NEUROUROLOGIST glipizide Hypoglycemic protocol Repeat blood glucose 167 today Insulin NPH/sliding scale for steroid kinetics and hyperglycemia Glucose checks AC/at bedtime or every 6 hours if not eating FEN/GI: Type II diabetic diet DVT prophylaxis: Continue NEUROUROLOGIST Xarelto (2) Hyponatremia: (3) Acute on chronic renal failure: (4) Diarrhea: (5) Hypotension: (6) Sepsis: (7) Pneumonia: (8) Hypoglycemia: (9) CHF (congestive heart failure): (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 Breathing feeling easier. Generally feeling better than when first admitted. Discussed overall planning. Vitals noted, in general he is awake and alert pleasant no distress. HEENT normocephalic atraumatic mucous membranes moist. Breathing unlabored no accessory muscle use good effort. Skin shows no rashes no pallor or icterus. Acute respiratory failure related to influenza and possible secondary bacterial overgrowth/atypical pneumonia, as well as acute on chronic systolic CHF -continue Tamiflu, continue Zithromax -Continue to follow volume status closely He has a time course of not having been well since May, notably the discharge day in May he was actually feeling reasonably well, which begs the question of whether or not he just had slow progress from his prior pneumonia and CHF exacerbation before getting sick again with the flu now, versus whether he had reinfections in between then and getting the flu, versus whether some of his dyspnea may have been his heart failure. Continue to follow closely, may benefit from trending inflammatory markers over the long-term to be able to have more of a working differential between fluid and infection. Otherwise as above Subjective Mr. Das is seen at the bedside this morning. He reports he feels well today, and is not having any fever, chills, shortness of breath, chest pain, lightheadedness, or dizziness. He feels much better than yesterday, 'nearly 100%." No questions or concerns this morning. Review of Systems Review of Systems: All systems reviewed & are unremarkable except as noted in HPI & below Physical Exam Physical Exam: General: A&Ox3. NAD. Cooperative. HEENT: Atraumatic, normocephalic. Pulm: CTAB A&P. -wheezes, -rales, -rhonchi. Symmetrical chest rise. No increase work of breathing. No respiratory distress. Cardiac: RRR, -mrg. Radial pulses intact and symmetrical. Abdominal: Nontender, nondistended, soft. BS present. Results & Data Vital Signs (Past 12 Hours) Vital Signs Temp Pulse Pulse Pulse Resp BP Pulse Ox 08/22/19 12:00 36.7 C 96 H 19 109/63 93 08/22/19 11:23 71 15 93 08/22/19 11:00 68 20 81/53 L 92 08/22/19 10:00 36.5 C 71 23 103/62 95 08/22/19 09:00 78 26 H 100/59 L 93 08/22/19 08:38 83 21 95 08/22/19 08:00 36.6 C 87 26 H 110/51 L 96 08/22/19 07:29 70 19 96 08/22/19 07:23 64 08/22/19 07:00 69 23 83/56 L 96 08/22/19 06:00 64 20 91/45 L 98 08/22/19 05:00 63 18 93/44 L 98 08/22/19 04:00 36.7 C 77 20 95/50 L 97 08/22/19 03:00 60 14 104/64 98 08/22/19 02:00 70 18 90/64 L 96 08/22/19 01:00 67 18 110/63 95 Resident Activity Tracking Resident Involvement: Resident Care Provided Care Provided: Adult Hospital Medicine (1) Sulfonylurea poisoning Encounter type: initial encounter Injury intent: accidental or unintentional Qualified Code(s): T38.3X1A - Poisoning by insulin and oral hypoglycemic [antidiabetic] drugs, accidental (unintentional), initial encounter (2) CHF (congestive heart failure) Heart failure chronicity: acute on chronic Heart failure type: unspecified Qualified Code(s): I50.9 - Heart failure, unspecified (3) Sepsis Sepsis acute organ dysfunction status: unspecified Sepsis type: sepsis due to unspecified organism Qualified Code(s): A41.9 - Sepsis, unspecified organism (4) Pneumonia Laterality: left Lung location: unspecified part of lung Pneumonia type: due to unspecified organism Qualified Code(s): J18.9 - Pneumonia, unspecified organism
--- NOTE | 2019-08-22 14:36 | Billing Data ---
Date of Service August 22, 2019 Coding Level of Care Code 25568 Subseq Hosp Care Lvl 2
[2019-08-22] MEDS: RIVAROXABAN 15 MG TAB PO SCH (17:37)
[2019-08-23] MEDS: ALBUT/IPRATROP 3MG/0.5MG NEB 3 ML VIAL NEB SCH ×5 (03:41→19:04)
[2019-08-23 04:26] LABS: Basophils # (auto) 0.01 K/uL (0-0.2); Basophils % (auto) 0.1 %; Hematocrit (blood only) 32.6 % (42-52); Hemoglobin 10.8 g/dL (14.0-18.0); Immature Granulocytes # (auto) 0.08 K/uL (0.00-0.02); Immature Granulocytes % (auto) 0.8 %; Lymphocytes # (auto) 0.46 K/uL (1.2-3.4); Lymphocytes % (auto) 4.4 %; Mean Corpuscular Hemoglobin 30.9 pg (25-34); Mean Corpuscular Hgb Conc 33.1 g/dL (32-36); Mean Corpuscular Volume 93.4 fL (80-100); Mean Platelet Volume 10.2 fL (7.4-10.4); Monocytes # (auto) 0.26 K/uL (0.11-0.59); Monocytes % (auto) 2.5 %; Neutrophils # (auto) 9.58 K/uL (1.4-6.5); Neutrophils % (auto) 92.2 %; Platelet Count 465 K/uL (130-400); RDW Coefficient of Variation 17.4 % (11.5-14.5); RDW Standard Deviation 59.7 fL (36.4-46.3); Red Blood Count 3.49 M/uL (4.7-6.1); White Blood Count 10.39 K/uL (4.8-10.8)
[2019-08-23 04:47] LABS: Albumin Level 2.4 gm/dl (3.4-5.0); BUN Creatinine Ratio 38.9 (10-20); Calcium 8.2 mg/dl (8.5-10.1); Creatinine Clr Calc Pharmacy 51.4 ml/min; Est GFR (African American) 56.6; Est GFR (Non-African American) 48.8; Potassium 4.4 mmol/L (3.5-5.1)
[2019-08-23 04:49] LABS: Albumin Globulin Ratio 0.6 (0.9-2); Bilirubin,Total 0.7 mg/dl (0.2-1); Globulin 3.8 gm/dl (2.5-4.0); Total Protein 6.2 gm/dl (6.4-8.2)
--- NOTE | 2019-08-23 07:25 | Critical Care Progress Note ---
Date of Service August 23, 2019 Assessment & Plan (1) Sepsis: Reason Critically Ill: 73-year-old male admitted to the ICU with sepsis, hypotension, influenza A, hypoglycemia Neuro - [facility] ICU: Negative oriented to person, place, time, and situation No focal deficits on exam Cardiac - Systolic CHF/hypotensioncardiogenic versus septic shock -Lactate elevated and patient tested positive for influenza A, see treatment of sepsis below echo from 06/18 showed EF 20 to 25% with significant akinesis of the anterior wall -Currently on Lasix and metolazone at home -CT chest and CXR suggestive of pulmonary edema, BNP elevated -We will continue ASA, holding metoprolol and metolazone in the setting of hypotension -We will spot diuresis with IV Lasix, considering ROGELIO and hypotension -Patient transitioned to PO diet with 1500 ml fluid restriction this morning, we will be cautious with any fluid resuscitation given status of patient's heart Patient has been stable off pressors for 36 hours but pressures remain low, 100's/50's will continue to hold antihypertensive agents -Monitor strict I's and O's and daily weights -Continue to monitor on telemetry Proximal V. tach/PAF/LBBBpatient s/p pacemaker with AICD Patient with run of V tach overnight, 20+ beats, AICD did not trigger, will get cardiology referral and investigate AICD -We will continue Xarelto, ASA -Holding Metoprolol in the setting of hypotension -K and Mag both optimized rechecking phosphorous now Respiratory - Respiratory distress/influenza A pneumoniapulmonary edema versus pneumonia versus COPD - No longer in respiratory distress patient's currently admitted for influenza A, patient was placed on prophylaxis Tamiflu and azithromycin following bronchitis with hemoptysis 2 days ago -Influenza A positive on admission -CT chest was suggestive of multifocal bronchopneumonia and components of pulmonary edema history of 30 to 40 pack/year tobacco abuse quit decades ago -Was followed by pulmonology this fall during prior admission and was scheduled for PFTs outpatient -Reports he has been noncompliant with prescription for trilogy -Patient wheezing on exam, started on DuoNeb and IV Solu-Medrol -Currently maintaining oxygen saturations on room air, but was given O2 overnight will continue to monitor as patient wakes up today and try to wean back to room air GI - Heart healthy diabetic diet, fluid restriction Mild transaminitislikely secondary to hypotension/shock liver -Improved RENAL/LYTES - ROGELIO on CKDbaseline creatinine 1.6 with creatinine on admission 1.9 -likely prerenal/ATN secondary to hypotension -Maintain maps greater than 65 -Avoid nephrotoxins -creatinine appears to have improved back to baseline 1.4 today better than any recent admissions - Strict I's and O's ENDO - DM type II/hypoglycemialikely related to home med glipizide in the setting of influenza/sepsis -Bolused with D5 and normal saline in the ED, now on continuous IV fluids with dextrose -Replete blood glucose 181, pharmacy consulted -Continue monitoring frequent blood glucose -Hypoglycemic protocol HEME - H&H stable, monitor routine CBCs ID - Sepsispatient positive for influenza A, blood cultures negative after 24 hours, lactate returned to baseline -UA negative for UTI -CT from 08/18 suggestive of bronchopneumonia -Patient on day 4 of azithromycin and Tamiflu Stopped aztreonam started ceftriaxone LINES/IV ACCESS - Peripheral IVs DVT PROPHYLAXIS - SCDs, patient on Xarelto Patient has remained stable off of pressors for >24 hours and we feel ready for step down to tele/PCU (2) Pneumonia: (3) Hypoglycemia: (4) CHF (congestive heart failure): (5) Influenza A: (6) Dyspnea: (7) Acute on chronic renal failure: (8) ICD (implantable cardioverter-defibrillator) in place: (9) Atrial fibrillation: Supervising Physician Co-Signing Physician Notes Dr. Choi was the resident-physician during care of patient. I separately evaluated patient for novak portions of the history and the exam. I was present during the critical portion of medical decision making, and I discussed the case with the resident. I generally agree with the findings and plan except for any additions/exceptions noted. Patient seen and examined at bedside. No acute distress. Patient had run of V. tach overnight without firing of AICD. Patient was hemodynamically stable during that time. Cardiology consult has been placed to evaluate AICD. Patient's potassium and magnesium are within normal limits. Phosphorus has been ordered which was found to be lower pill replace it with sodium Phos. Saturating well. Still complain of wheezing. Unable to bring any phlegm up. No palpitations, no nausea or vomiting. Appetite is good. Continue with antibiotics for total of 5 days. Patient tolerated ceftriaxone without any issues. We will continue with ceftriaxone and azithromycin along with Tamiflu which is renally dosed for the patient. For DVT prophylaxis patient is on rivaroxaban. Patient's blood pressure is borderline low but patient is totally asymptomatic patient, was monitored in the ICU for 24 hours without any complaints of dizziness or hemodynamic instability. We will resume Lasix which patient is supposed to be taking at home on a daily basis and then go back to twice daily later during the course of the hospitalization as per the primary team. Patient is clinically stable to be downgraded to telemetry floor. I have personally spent 45 minutes of critical care time in the direct management of this patient. This is a life/limb threatening event. This includes time spent evaluating patient, direct bedside care, chart review, placing orders, interpretation of diagnostic studies, discussion with consultants, patient, and/or family members regarding treatment decisions, as well as other required patient management activities. This time is exclusive of all separately billable procedures, and teaching time and separate from and in addition to any other critical care service time. Subjective Mr. Lavell Das tells me he continues to feel well, he does not feel short of breath and only complaint is not sleeping well. He does not feel like breathing treatments are helpful for him. He says he wants to get up and walk some more today. Walked a few laps around the unit yesterday without difficulty and felt like that helped him feel better yesterday. Review of Systems Review of Systems: All systems reviewed & are unremarkable except as noted in HPI & below Physical Exam Constitutional: well developed and well nourished; no acute distress Tired appearing, Eyes: PERRL, conjunctivae normal, anicteric sclerae ENMT: external ear and nose normal, oropharynx normal Respiratory: normal respiratory effort, lungs clear to auscultation Auscultation: + wheezes (Mild wheezing globally); no crackles, no rales and no rhonchi Cardiovascular: Rate/Rhythm: regular rate and regular rhythm Heart Sounds: no click, no gallop, no murmur and no cardiac rub Extremities: no edema Gastrointestinal (Abdomen): normal bowel sounds, soft, nontender, no hepatosplenomegaly Skin: Evidence of skin lesion on top of head, he said he's had it frozen off multiple times, scar formation with what appears to be seborrheic keratosis on perimeter Results & Data Vital Signs (Past 12 Hours) Vital Signs Temp Pulse Resp BP Pulse Ox Pulse Ox 08/23/19 06:00 81 22 100/45 L 95 08/23/19 05:00 84 22 87/51 L 94 08/23/19 04:00 36.7 C 81 20 94/75 L 94 08/23/19 03:43 70 18 08/23/19 03:00 80 14 86/56 L 95 08/23/19 02:00 81 20 90/46 L 97 08/23/19 01:00 83 18 94/47 L 96 08/23/19 00:00 36.6 C 82 20 88/40 L 97 08/22/19 23:08 84 18 98 08/22/19 23:00 71 22 95/42 L 96 08/22/19 22:00 74 22 91/45 L 95 08/22/19 21:00 89 24 105/65 95 95 08/22/19 20:00 36.7 C 83 22 107/86 94 (1) CHF (congestive heart failure) Heart failure chronicity: acute on chronic Heart failure type: unspecified Qualified Code(s): I50.9 - Heart failure, unspecified (2) Sepsis Sepsis acute organ dysfunction status: unspecified Sepsis type: sepsis due to unspecified organism Qualified Code(s): A41.9 - Sepsis, unspecified organism (3) Pneumonia Laterality: left Lung location: unspecified part of lung Pneumonia type: due to unspecified organism Qualified Code(s): J18.9 - Pneumonia, unspecified organism
[2019-08-23] MEDS: INSULIN ASPART 100 UNITS/ML 3 ML PEN SC SCH ×4 (07:28→20:38)
[2019-08-23] MEDS: ASPIRIN 81 MG ECTAB PO SCH (07:29)
[2019-08-23] MEDS: FERROUS SULFATE 325 MG TAB PO SCH (07:29)
[2019-08-23] MEDS: AZITHROMYCIN 250 MG TAB PO SCH (07:30)
[2019-08-23] MEDS: CHOLECALCIFEROL 1,000 UNITS TAB PO SCH (07:32)
[2019-08-23] MEDS: methylPREDNISolone 40 MG in SYRINGE 0 ML IV SCH (07:33)
[2019-08-23] MEDS: OSELTAMIVIR PHOSPHATE SUSP 30 MG/5 ML UDP PO SCH ×2 (07:34→19:23)
[2019-08-23] MEDS: INSULIN HUMAN NPH SC SCH (07:35)
--- NOTE | 2019-08-23 09:15 | Hospitalist Progress Note ---
Date of Service August 23, 2019 Assessment & Plan (1) Influenza A: Mr. Das is a 73yo M with a PMHx of CHF, type 2 diabetes, pAfib, CKD, dyslipidemia, hypertension, left bundle branch block, paroxysmal V. tach, and gout who has been admitted for septic shock in the setting of influenza A. Sepsis 2/2 influenza +/-superimposed pneumonia Flu a positive on admission CT chest shows multifocal bronchopneumonia with component of pulmonary edema Lactate 5.5, normalized 08/22 Admitted to the ICU for pressor requirement, off pressors >24 hours Continue Tamiflu Empiric Vanco/aztreonam narrowed to azithromycin/rocephin now converted to doxy Doxycycline 100mg PO/IV BID x5 day total abx course Given patient's history concerning for subclinical recurrent pneumonia recommend procalcitonin at/near discharge Methylprednisolone 40 mg daily initiated for reduced air movement and wheezing, pulmonary continuing to follow. Systolic CHF Echo 06/18 showed EF 20-25% with anterior wall akinesis CT chest, CXR suggestive of fluid overload, BNP elevated Continue aspirin Hold metoprolol, metolazone for hypotension. Resume metoprolol tomorrow AM if SBP>120, DBP>60 and HR>60 Periodic fluid reassessment - Lasix 20mg PO QD 1500 cc fluid restriction V. tach/PAF/LBBB Status post pacemaker with AICD - ~25 beat of VTach last night, AICD did not register/fire. Cardiology consulted to interrogate. Continue Xarelto Continue aspirin as above Metoprolol held as above Transaminitis, hyperbilirubinemia, resolved Likely 2/2 shock liver in the setting of sepsis - Normalized ROGELIO on CKD Baseline creatinine 1.2 Creatinine acutely elevated to 1.9, currently downtrending @ 1.4 today Gentle fluid hydration given severely reduced EF Type 2 diabetes mellitus, presentation with hypoglycemia Suspect hypoglycemia in the setting of acute illness in combination with [employer] glipizide Hypoglycemic protocol BSG adequately controlled this morning Insulin NPH 10 or 15 units scaled BID = SSI for steroid kinetics and hyperglycemia Glucose checks AC/at bedtime or every 6 hours if not eating FEN/GI: Type II diabetic diet DVT prophylaxis: Continue [employer] Xarelto Dispo: Downgrade from ICU to PCU/Tele. (2) Hyponatremia: (3) Acute on chronic renal failure: (4) Diarrhea: (5) Hypotension: (6) Sepsis: (7) Pneumonia: (8) Hypoglycemia: (9) CHF (congestive heart failure): (10) Sulfonylurea poisoning: (11) Dyspnea: (12) Cough: (13) Anemia: (14) ICD (implantable cardioverter-defibrillator) in place: Supervising Physician Co-Signing Physician Notes Resident Physician Supervision Note: I interviewed and examined the patient. Discussed with Dr. Hong Carrillo and agree with findings and plan as documented in the note. Any exceptions or clarifications are listed here: none. Events of last 24 hours reviewed. Pt was critically ill at time of admission due to septic shock from fluA and b/l multifocal pneumonia. This is in context of severe chronic systolic CHF. Patient now day 3-12/03 of tamiflu for fluA infection. Remains on IV antibiotics for pneumonia. Septic shock resolved; off pressors. During my personal bedside rounds patient was sitting in chair by the window. He reported feeling better overall; not back to baseline but improving. Still with cough. No dyspnea at rest. Exam: gen - pale, NAD, comfortable mouth - MMM neck - no JVD sitting at 90 degrees heart - irregular, s1 s2 lungs - mild end-exp wheeze, crackles bases abd - soft NT ext - no edema A/P: 1. septic shock 2nd flu A infection & multifocal pneumonia - septic shock resolved. 2. fluA infection - day 3-12/03 of tamiflu; finish course, supportive care. 3. b/l pneumonia - patient is <90 days since last hospital stay thus is at risk of gram negative pneumonia. Very low threshold to broaden abx selection for pneumonia. 4. NSVT - per cardiology. 5. severe chronic systolic CHF - would d/c any basal fluids in light of severely depressed EF (20%). Resume PO lasix. Dry weight is about 88kg; is 91kg today. Daily weights, I's and O's, daily BMP. 6. hyponatremia - multifactorial - BMP daily. 7. CAD - during my visit today he reported no ischemic symptoms. Recent troponin mildly elevated - likely myocardial demand ischemia in setting of septic shock. 8. a.fib - would continue xarelto. 9. ROGELIO in setting of CKD stage 3 - ROGELIO resolved; Cr now 1.4 today; ROGELIO was sepsis-associated ATN. ok to downgrade from ICU to PCU this afternoon given improvement in overall status, off pressors, etc Documented By: Amol Mendoza MD Subjective Mr. Das is seen at the bedside this morning. He is sitting up eating breakfast at time of visit. He reports he feels well. He was not aware that he had a run of V. tach last night, I did not appreciate any chest pain, chest pressure, palpitations, syncope, or presyncope. He continues to be mildly short of breath with ambulation, but feels he is breathing well and is not short of breath on room air sitting in his chair this morning. He denies nausea, vomiting, diarrhea, constipation is not having any abdominal pain. He has a good appetite, and has tolerated breakfast well. He feels overall a little fatigued, but denies focal weakness. He is urinating well, but reports his urine continues to be yellow and dark with a "burnt "color. No dysuria. Review of Systems Review of Systems: Constitutional: Denies fever, chills. Endorses fatigue. Eyes: Denies acute vision change. ENT: Denies ear pain, sore throat, sinus pain Cardiovascular: Denies Chest pain, chest pressure, palpitations this morning Respiratory: SoB as noted in HPI. Intermittent nonproductive cough this morning. Gastrointestinal: Denies abdominal pain, nausea, vomiting, constipation, diarrhea Genitourinary: Denies pain with urination, urinary urgency, urinary frequency. Endorses dark urine. Musculoskeletal: Denies acute focal weakness, muscle aches/pain, joint aches/pain Integumentary:Endorses chronic skin lesion on his head which he has had frozen several times.Denies New rash, lesions, bruising Neurological: Denies acute headache, numbness, tingling, focal weakness Physical Exam Physical Exam: General: A&Ox3. NAD. Cooperative. HEENT: Atraumatic, normocephalic. Pulm: Musical inspiratory and expiratory sounds in left lower lobe, right lower lobe crackles and wheezing. Trace wheezing on forced expiration in left upper and right upper lobes. Moderate air movement. Symmetrical chest rise. No acute respiratory distress. Breathing well on room air. Cardiac: RRR, -mrg. Radial pulses intact and symmetrical. Abdominal: Nontender, nondistended, soft. BS present. Results & Data Vital Signs (Past 12 Hours) Vital Signs Temp Pulse Resp BP Pulse Ox 12/24/19 07:35 84 17 96 08/23/19 06:00 81 22 100/45 L 95 08/23/19 05:00 84 22 87/51 L 94 08/23/19 04:00 36.7 C 81 20 94/75 L 94 08/23/19 03:43 70 18 08/23/19 03:00 80 14 86/56 L 95 08/23/19 02:00 81 20 90/46 L 97 08/23/19 01:00 83 18 94/47 L 96 08/23/19 00:00 36.6 C 82 20 88/40 L 97 08/22/19 23:08 84 18 98 08/22/19 23:00 71 22 95/42 L 96 08/22/19 22:00 74 22 91/45 L 95 Resident Activity Tracking Resident Involvement: Resident Care Provided Care Provided: Adult Hospital Medicine (1) Sulfonylurea poisoning Encounter type: initial encounter Injury intent: accidental or unintentional Qualified Code(s): T38.3X1A - Poisoning by insulin and oral hypoglycemic [antidiabetic] drugs, accidental (unintentional), initial encounter (2) CHF (congestive heart failure) Heart failure chronicity: acute on chronic Heart failure type: unspecified Qualified Code(s): I50.9 - Heart failure, unspecified (3) Sepsis Sepsis acute organ dysfunction status: unspecified Sepsis type: sepsis due to unspecified organism Qualified Code(s): A41.9 - Sepsis, unspecified organism (4) Pneumonia Laterality: left Lung location: unspecified part of lung Pneumonia type: due to unspecified organism Qualified Code(s): J18.9 - Pneumonia, unspecified organism
[2019-08-23] MEDS: POTASSIUM CHLORIDE 20 MEQ TABCR PO SCH (09:59)
[2019-08-23] MEDS ORDERED: FUROSEMIDE 20 MG TAB PO SCH (10:00)
[2019-08-23] MEDS: cefTRIAXone SODIUM 2,000 MG in DEXTROSE 5% 50 ML IV SCH (10:09)
[2019-08-23] MEDS ORDERED: SODIUM PHOSPHATE 3 MMOL/1 ML INFUSION IV SCH (10:30)
[2019-08-23] MEDS ORDERED: SODIUM PHOSPHATE 3 MMOL/1 ML INFUSION IV STA (10:33)
--- NOTE | 2019-08-23 10:42 | Billing Data ---
Date of Service August 23, 2019 Coding Level of Care Code Critical Care 1st 30-74 mins Time Spent (min) 45
[2019-08-23] MEDS ORDERED: OXYMETAZOLINE 0.05% 30 ML BTL NAE PRN (10:59)
[2019-08-23] MEDS ORDERED: SODIUM PHOSPHATE 40 MMOL in SODIUM CHLORIDE 0.9% 1000ML 1,000 ML IV ONE (11:00)
[2019-08-23] MEDS: DOXYCYCLINE HYCLATE 100 MG in DEXTROSE 5% 100 ML IV SCH (12:54)
[2019-08-23] MEDS ORDERED: BENZONATATE 100 MG CAPSULE PO PRN (13:06)
--- NOTE | 2019-08-23 13:07 | Cardiology Consultation ---
Date of Consultation August 23, 2019 Assessment & Plan (1) CHF (congestive heart failure): He tracks his weights at home actually has been losing weight recently. His initial evaluation suggested some pulmonary edema on imaging. However, he required some volume resuscitation. Most of his pulmonary symptoms are likely related to bronchopneumonia and congestion. He is currently on a daily dose of oral diuretic. This could be increased to his outpatient dose of 40 mg of Lasix twice daily. (2) ICD (implantable cardioverter-defibrillator) in place: Normally functioning biventricular ICD. Overall function is compromised by his atrial fibrillation. There is no AV coordination and he has poor pacing percentages due to conducted atrial fibrillation. For continued atrial fibrillation he may benefit from AV node ablation. This can be addressed as an outpatient. (3) Atrial fibrillation: He was cardioverted previously. However, he appears to have had atrial fibrillation for an extended period currently. I suggest this is permanent. He is on Xarelto at a reduced dose. His renal function varies significantly and whether this is an adequate dose is unclear. However, for the course of this admission continuing 50 mg daily would seem reasonable. I think consideration for an AV node ablation should be given on an outpatient basis. (4) Ischemic cardiomyopathy: He is currently on Lasix twice daily as an outpatient, metoprolol and Entresto (5) Left bundle branch block (LBBB): (6) Paroxysmal ventricular tachycardia: He had a couple of seconds of ventricular tachycardia on telemetry. There is a remote possibility this represents some form of atrial arrhythmia and aberrancy, as the rhythm sped up and slow down. However, he has likely had ventricular tachycardia as well. No detection or therapy occurred through his device as the episode itself was very brief. His lowest detection rate is 150 beats per minute. If he were to have sustained ventricular tachycardia under treated by his device it is likely that the rate would be slower than 150. In that situation standard cardioversion externally would be required. History of Present Illness Reason for Consultation: Ventricular tachycardia Requesting Physician: Jimbo Attending Physician: Amol Mendoza History of Present Illness Patient is a 73-year-old gentleman with an extensive cardiac history to include coronary artery disease, ischemic cardiomyopathy, permanent atrial fibrillation and history of ICD implantation who is currently admitted with symptoms of sepsis. It seems that the patient has been feeling weak and tired for several weeks. He has had some difficulty with ambulation due to fatigue in his legs for over a year. Recently his was admitted to the hospital with influenza. Approximately 1 day prior to admission the patient noticed some shakiness and felt like he had low blood sugars. He presented to the emergency room where he did have an element of hypoglycemia as well as hypotension. He was admitted for symptoms of potential sepsis. He did require some pressor support at the time of admission. He states that he has had some breathing difficulty, but this is fairly mild. He does have a cough currently that he attributes to use of bronchodilators. He is generally not been aware of palpitations. He denies symptoms of dizziness or lightheadedness. He did not have recent symptoms of chest discomfort. Overall he is feeling better. Allergies Allergy/AdvReac Type Severity Reaction Status Date / Time Nbcxzmj-[id number]-Xuv Reductase Allergy Intermediate myalgia Verified 08/23/19 09:51 Inhibitor bee venom protein (honey bee) Allergy Unknown yellow Verified 08/20/19 18:24 jacket Penicillins Allergy Unknown Unknown Verified 08/23/19 09:51 levofloxacin AdvReac Intermediate nightmares Verified 08/20/19 18:24 Home Medications Home Medications Medication Instructions Recorded Confirmed Type furosemide 40 mg tablet 40 mg PO BID #180 tab 03/17/19 08/20/19 Rx metoprolol succinate 25 mg 25 mg PO DAILY #90 tab 03/17/19 08/20/19 Rx tablet,extended release 24 hr nitroglycerin 400 mcg/spray 1 sprays SL .COMPLEX PRN #4.9 gm 03/17/19 08/20/19 Rx translingual potassium chloride 20 mEq 20 meq PO DAILY #90 tab 03/17/19 08/20/19 Rx tablet,extended release aspirin [Aspir-81] 81 mg PO DAILY 06/11/19 08/20/19 History ferrous sulfate 325 mg (65 mg 325 mg PO DAILY 07/19/19 08/20/19 History iron) tablet sacubitril 24 mg-valsartan 26 mg 1 tab PO BID #180 tab 07/25/19 08/20/19 Rx tablet rivaroxaban 15 mg tablet 15 mg PO QPM 08/04/19 08/20/19 History cholecalciferol (vitamin D3) 5,000 5,000 units PO DAILY cap 08/09/19 08/20/19 History unit capsule fluticasone fur. 100 mcg-umeclid 1 puffs INH DAILY #28 ea 08/09/19 08/20/19 Rx 62.5 mcg-vilant 25 mcg inhalat.powder glipizide 5 mg tablet 5 mg PO DAILY #90 tab 08/12/19 08/20/19 Rx metolazone 2.5 mg tablet 2.5 mg PO DAILY tab 08/17/19 08/20/19 History azithromycin 500 mg tablet 500 mg PO DAILY 5 Days #5 tab 08/18/19 08/20/19 Rx oseltamivir 75 mg capsule 75 mg PO DAILY 14 Days #14 cap 08/19/19 08/20/19 Rx loperamide [Imodium A-D] 2 mg PO DIRECTED PRN 08/20/19 08/20/19 History Patient History Medical History Acute on chronic systolic congestive heart failure (Resolved) Anemia Arteriosclerotic cardiovascular disease (Acute) Atrial fibrillation (Chronic) Central hypothyroidism (Acute) Chronic kidney disease, stage 3 (moderate) (Chronic) Chronic systolic congestive heart failure (Acute) 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) Dyslipidemia (Acute) Gout (Acute) History of pacemaker Hypertension (Acute) ICD (implantable cardioverter-defibrillator) in place (Acute 09/02/11) Ischemic cardiomyopathy (Acute) Left bundle branch block (LBBB) (Acute) Multinodular goiter (Acute) Old myocardial infarction (Acute) Paroxysmal ventricular tachycardia (Acute) Pneumonia Solitary thyroid nodule (Acute) Vitamin D deficiency (Acute) Surgical History H/O hand surgery L index finger History of ankle surgery S/P foot surgery S/P knee surgery L patella fx repair Family History Father Myocardial infarction Family/Other Heart disease Hypertension Dyslipidemia Other Family history non-contributory Social History Preferred Language: [place] Communication Ability: Effective Visual Impairment: Limited Hearing Ability: Normal Recreation Therapist Required: No Beliefs That Will Affect Care: None marital status: Current Living Situation: Spouse current occupational status: retired Other Information That Helps Us Care for You: No Feels Safe at Home: Yes Safety Concerns: Feels Safe At This Time Smoking Status: Unknown if ever smoked Hx Alcohol Use: No Hx Substance Use: No Childhood Exposure to Second-Hand Smoke: Yes caffeine: No during the past year weight has: remained stable Dental Care, Regularly: Yes Physical Activity Frequency: Does not Exercise Seatbelt Use: always Sunscreen Use: Yes Review of Systems Review of Systems: All systems reviewed & are unremarkable except as noted in HPI & below Physical Exam Physical Exam: The patient is alert and oriented. Mood and affect appeared normal. He answered all questions appropriately. HEENT: Pupils are equal and reactive to light and accommodation. Extraocular movements are intact. The sclerae are anicteric. Neuro: Cranial nerves intact Neck: Patient's neck is supple. He has palpable carotid pulses bilaterally without bruits on auscultation. There is no evidence of jugular venous distention. The thyroid is not enlarged. Lungs: Poor air movement overall. Congestion in the bases bilaterally. Some expiratory wheezing. And bronchial breath sounds. Cardiac: Heart demonstrates an irregular rate and rhythm. Normal S1 and S2. No murmurs on examination. Pulses: The patient has palpable radial pulses bilaterally that are equal in intensity Extremities: There was no evidence of hypoperfusion. There is no cyanosis or clubbing. There is no edema. Skin: I did not appreciate any rashes on examination today. Results & Data Vital Signs (Past 12 Hours) Vital Signs Temp Pulse Pulse Resp BP BP Pulse Ox 08/23/19 12:00 36.6 C 89 21 120/64 94 08/23/19 11:06 88 21 95 08/23/19 11:00 89 22 102/57 L 95 08/23/19 10:55 08/23/19 10:00 36.9 C 79 21 105/58 L 94 08/23/19 09:36 87 08/23/19 09:00 103 H 21 100/56 L 93 08/23/19 08:00 37.1 C 99 H 29 H 121/69 94 08/23/19 07:35 84 17 96 08/23/19 07:01 86 25 H 93/47 L 95 08/23/19 06:00 81 22 100/45 L 95 08/23/19 05:00 84 22 87/51 L 94 08/23/19 04:00 36.7 C 81 20 94/75 L 94 08/23/19 03:43 70 18 08/23/19 03:00 80 14 86/56 L 95 08/23/19 02:00 81 20 90/46 L 97 08/23/19 01:00 83 18 94/47 L 96 Pulse Ox Pulse Ox 08/23/19 12:00 08/23/19 11:06 08/23/19 11:00 08/23/19 10:55 95 95 08/23/19 10:00 08/23/19 09:36 08/23/19 09:00 08/23/19 08:00 08/23/19 07:35 08/23/19 07:01 08/23/19 06:00 08/23/19 05:00 08/23/19 04:00 08/23/19 03:43 08/23/19 03:00 08/23/19 02:00 08/23/19 01:00 Laboratory Results Abnormal Lab Results 08/21/19 08/22/19 08/22/19 13:00 15:51 20:33 WBC RBC Hgb Hct MCV MCH MCHC RDW Std Deviation RDW Coeff of Aliyah Plt Count MPV Immature Gran % (Auto) Neut % (Auto) Lymph % (Auto) [place] % (Auto) Eos % (Auto) Baso % (Auto) Immature Gran # (Auto) Neut # (Auto) Lymph # (Auto) [place] # (Auto) Eos # (Auto) Baso # (Auto) Sodium Potassium Chloride Carbon Dioxide Anion Gap BUN Creatinine Est Cr Clr Drug Dosing Est GFR ( Amer) Est GFR (Non-Af Amer) BUN/Creatinine Ratio Glucose POC Glucose 114 H 171 H Calcium Phosphorus Magnesium Total Bilirubin AST ALT Alkaline Phosphatase Total Protein Albumin Globulin Albumin/Globulin Ratio Urine Legionella Ag SEE NOTE 08/23/19 08/23/19 08/23/19 03:57 03:57 03:57 WBC 10.39 RBC 3.49 L Hgb 10.8 L Hct 32.6 L MCV 93.4 MCH 30.9 MCHC 33.1 RDW Std Deviation 59.7 H RDW Coeff of Aliyah 17.4 H Plt Count 465 H MPV 10.2 Immature Gran % (Auto) 0.8 Neut % (Auto) 92.2 Lymph % (Auto) 4.4 [place] % (Auto) 2.5 Eos % (Auto) 0.0 Baso % (Auto) 0.1 Immature Gran # (Auto) 0.08 H Neut # (Auto) 9.58 H Lymph # (Auto) 0.46 L [place] # (Auto) 0.26 Eos # (Auto) 0.00 Baso # (Auto) 0.01 Sodium 135 L Potassium 4.4 Chloride 105 Carbon Dioxide 22 Anion Gap 8.0 BUN 54 H Creatinine 1.40 Est Cr Clr Drug Dosing 51.4 Est GFR ( Amer) 56.6 Est GFR (Non-Af Amer) 48.8 BUN/Creatinine Ratio 38.9 H Glucose 127 H POC Glucose Calcium 8.2 L Phosphorus Magnesium 2.5 H Total Bilirubin 0.7 AST 25 ALT 27 Alkaline Phosphatase 56 Total Protein 6.2 L Albumin 2.4 L Globulin 3.8 Albumin/Globulin Ratio 0.6 L Urine Legionella Ag 08/23/19 08/23/19 08/23/19 03:57 05:10 11:27 WBC RBC Hgb Hct MCV MCH MCHC RDW Std Deviation RDW Coeff of Aliyah Plt Count MPV Immature Gran % (Auto) Neut % (Auto) Lymph % (Auto) [place] % (Auto) Eos % (Auto) Baso % (Auto) Immature Gran # (Auto) Neut # (Auto) Lymph # (Auto) [place] # (Auto) Eos # (Auto) Baso # (Auto) Sodium Potassium Chloride Carbon Dioxide Anion Gap BUN Creatinine Est Cr Clr Drug Dosing Est GFR ( Amer) Est GFR (Non-Af Amer) BUN/Creatinine Ratio Glucose POC Glucose 138 H 97 Calcium Phosphorus 1.7 L D Magnesium Total Bilirubin AST ALT Alkaline Phosphatase Total Protein Albumin Globulin Albumin/Globulin Ratio Urine Legionella Ag Diagnostic Findings Chest x-ray and CT examination performed of the time admission suggests some mild pulmonary edema but more notably bronchopneumonia. Device interrogation performed today revealed persistent atrial fibrillation. Poor overall pacing percentages. No therapies or detections. ECG Additional Comments: Atrial fibrillation with paced ventricular rhythm PG Care Time/CCT Total # of Minutes Spent Total Time Spent with Patient: Total time spent is greater than 50% in coordination of care (as documented) at patient's floor/unit and/or counseling patient: (1) CHF (congestive heart failure) Heart failure chronicity: acute on chronic Heart failure type: unspecified Qualified Code(s): I50.9 - Heart failure, unspecified
--- NOTE | 2019-08-23 13:17 | Pharmacy Report ---
Pharmacy Glycemic Short Note 2 - Date of Service August 23, 2019 - Glycemic Short BSG Results (Last 24 hours): 08/22/19 08/22/19 08/23/19 15:51 20:33 03:57 Glucose 127 H POC Glucose 114 H 171 H 08/23/19 08/23/19 05:10 11:27 Glucose POC Glucose 138 H 97 OUTPATIENT ANTIDIABETIC REGIMEN: * glipizide * A1c: 5.6% ASSESSMENT: 08/22: * Blood sugars well controlled over the past 24 hours. * Over the past 24 hours the patient received a total of 64 units of insulin (30 of basal and 34 units of bolus) * Based on todays fasting and lunchtime post prandial levels, will change to a reduced once daily nph dosing starting tomorrow and loosen novolog scale * IV solumedrol 40mg qam remains unchanged today 08/22: * Patients' fasting BSG much improved this morning. Will receive 15 units of NPH * Solumedrol changed to 40mg once daily (from twice daily) this morning. Will adjust evening scale and loosen novolog scale with lunch This will need further adjustment as steroids are tapered 08/21 * 73yo T2DM male admitted for hypotension, influenza A+, and PNA. * Pt with multiple risk factors for insulin resistance including: steroids, pressors, infection. * BSGs SEVERE hyperglycemia for ICU (BSG >219) and hospital wide (BSG >300). Per protocol, IV insulin infusion should be started. However, RN asking that we try aggressive SQ insulin dosing first. If BSG still >219 at 1800 will initiate IV insulin infusion per protocol. * Will use high stress weight based dosing for steroids and titrate based on BSG trends. PLAN FOR INPATIENT GLYCEMIC CONTROL: * Hold outpatient oral diabetes medications * Basal insulin * NPH 10 units this morning * NPH 5 or 10 units SQ qam based on BSG starting tomorrow * Bolus insulin * NovoLog per scale ACHS or Q6hrs while NPO * Goal Range: Low 120 mg/dL - High 150 mg/dL * Correction Factor: 25 mg/dL/unit * Nutritional / Prandial insulin per carb ratio of 1 unit per 8 grams CHO consumed
[2019-08-23] MEDS ORDERED: SUCCINYLCHOLINE CHLORIDE 20 MG/ML 10 ML VIAL IV ONE (15:17)
[2019-08-23] MEDS ORDERED: KETAMINE HCL INJ 50 MG/ML 10 ML VIAL IV ONE (15:17)
[2019-08-23] MEDS ORDERED: fentaNYL citrate 100 MCG/2 ML VIAL IV ONE (15:17)
[2019-08-23] MEDS: RIVAROXABAN 15 MG TAB PO SCH (17:21)
[2019-08-23] MEDS: guaiFENesin 600 MG TABCR PO SCH (19:23)
[2019-08-23] MEDS ORDERED: FUROSEMIDE 40 MG in SYRINGE 0 ML IV STA (21:13)
[2019-08-23] MEDS ORDERED: FUROSEMIDE 40 MG/4 ML VIAL IV ONE (21:14)
[2019-08-23] MEDS: DEXTROSE 50% 50 ML SYRINGE IV PRN (21:14)
--- NOTE | 2019-08-23 21:24 | XRay Report ---
SINGLE VIEW CHEST CLINICAL HISTORY: Dyspnea. FINDINGS: An AP, portable, upright chest radiograph is compared to study dated 08/21/2019 and correla uli with chest CT dated 06/11/2019. The examination is degraded by portable technique and patient rot ation. A 3-lead cardiac AICD is unchanged in position and partially obscures the right mid chest. The heart is enlarged. There is pulmonary vascular congestion. Bilateral airspace opacities are noted. T here are small pleural effusions with associated atelectasis. No pneumothorax is seen. The skeletal s tructures are osteopenic. The bony thorax is grossly intact. IMPRESSION: 1. Cardiomegaly and AICD with evidence of congestive failure. This has worsened from 08/21/2019. 2. Bilateral airspace opacities likely represent interstitial edema. Correlate clinically for evidenc e of superimposed pneumonia. 3. Small pleural effusions ACT 112: Negative or not required by law. Electronically signed by: Paul Duncan M.D. 08/23/2019 9:23 PM
[2019-08-23 21:35] LABS: iSTAT Allen Test Pass; iSTAT Arterial Blood Gas HCO3 14 meg/L (19-24); iSTAT Arterial Blood Gas pCO2 29 mmHg (35-46); iSTAT Arterial Blood Gas pH 7.28 (7.35-7.45); iSTAT Arterial Blood Gas pO2 98 mmHg (80-95); iSTAT Carbon Dioxide 14 mEq/l (24-31); iSTAT FiO2 100 %; iSTAT Site L Radial
--- NOTE | 2019-08-23 21:49 | Progress Note ---
Date of Service August 23, 2019 Called by patient's nurse for acute respiratory distress and desaturations. Patient was noted to have a room SpO2 in the low 80's, acute SOB, and to appear more ashen in color. He notes the patient received 1 L of IV fluids earlier today. Was also transferred out of the ICU earlier today. Stat chest x-ray was ordered. In brief review of the chart, patient was admitted for influenza and superimposed pneumonia. He has known systolic CHF with an EF of 20 to 25%. Cardiology had recommended increasing his Lasix closer to his home dose. Saw patient at bedside, vitals reviewed. At the time of my initial examination, patient had been placed on an oximask. He appeared acutely dyspneic, ashen in color, and there were difficulties in getting an accurate pulse ox. He was noted to be tachycardic as well. Diffuse rales on auscultation. At this point, since it was difficult to assess his oxygen status, a code purple was called. Stat portable chest x-ray was read as worsening congestive failure. An ABG was ordered. Assessment/Plan: Looks like acute pulmonary edema, perhaps related to receiving a liter of sodium phosphate this afternoon. - Patient was emergently placed on BiPAP 08/07 with FiO2 100%. This quickly improved his overall color and his SpO2 went to 100%. - Will try to titrate down the FiO2 to goal SpO2 > 92%. Continue BiPAP acutely to help with the pulmonary edema. - Gave dose of lasix 40 mg IV x 1. - He continues to be tachycardic in 100's-120's. Ordered TnI as a precaution. Overall fluid status will require some balancing. - Spoke with Dr. Gotti about the above. Karime Brooks, PGY3 Overnight call Results & Data Vital Signs (Past 12 Hours) Vital Signs Temp Pulse Pulse Resp BP BP Pulse Ox 08/23/19 21:45 136 H 39 H 100 08/23/19 21:30 130 H 41 H 100 08/23/19 21:24 161 H 33 H 100 08/23/19 21:16 174 H 27 H 153/104 H 100 08/23/19 21:15 169 H 30 H 100 08/23/19 21:09 145 H 36 H 86 L 08/23/19 21:00 154 H 33 H 100/67 80 L 08/23/19 20:45 129 H 13 63 L 08/23/19 20:00 100 H 08/23/19 19:16 36.9 C 97 H 20 113/73 91 08/23/19 19:06 97 H 18 90 08/23/19 16:00 36.8 C 78 18 104/56 L 96 08/23/19 14:30 85 24 88 L 08/23/19 14:15 91 H 26 H 90 08/23/19 14:00 90 83 28 H 101/64 101/64 94 08/23/19 13:00 91 H 22 102/65 93 08/23/19 12:00 36.6 C 89 21 120/64 94 08/23/19 11:06 88 21 95 08/23/19 11:00 95 H 89 27 H 102/57 L 102/57 L 94 08/23/19 10:55 08/23/19 10:00 36.9 C 79 21 105/58 L 94 Pulse Ox Pulse Ox 08/23/19 21:45 08/23/19 21:30 08/23/19 21:24 08/23/19 21:16 08/23/19 21:15 08/23/19 21:09 08/23/19 21:00 08/23/19 20:45 08/23/19 20:00 08/23/19 19:16 08/23/19 19:06 08/23/19 16:00 08/23/19 14:30 08/23/19 14:15 08/23/19 14:00 08/23/19 13:00 08/23/19 12:00 08/23/19 11:06 08/23/19 11:00 08/23/19 10:55 95 95 08/23/19 10:00
[2019-08-23] MEDS ORDERED: DIGOXIN 250 MCG in SYRINGE 9 ML IV STA (22:16)
[2019-08-23] MEDS ORDERED: NITROGLYCERIN 2% OINTMENT 30GM TUBE EXT ONE (22:17)
[2019-08-23] MEDS ORDERED: RAPID SEQUENCE INDUCTION BAG ONE (23:21)
[2019-08-23] MEDS ORDERED: methylPREDNISolone 125 MG in SYRINGE 0 ML IV STA (23:27)
[2019-08-23] MEDS ORDERED: VANCOMYCIN CONSULT ACTIVE PRN (23:27)
[2019-08-23] MEDS ORDERED: VANCOMYCIN HCL 1,000 MG/270 ML BAG IV STA (23:27)
[2019-08-23] MEDS ORDERED: NOREPINEPHRINE BIT INJ 8 MG in DEXTROSE 5% 500 ML IV SCH (23:43)
[2019-08-24] MEDS ORDERED: AZTREONAM 2,000 MG in DEXTROSE 5% 100 ML IV SCH
--- NOTE | 2019-08-24 00:13 | Anesthesiology Progress Note ---
Date of Service August 24, 2019 Layne I was called by the ICU. The patient was in hypoxic respiratory failure and re quired emergent intubation. The patient had a known goiter causing subglottic narrowing on CT scan. Prior to intubation, the patient was on BiPap. The patient was tachycardic with HR in 120s, BP 90s/60s, with O2 sat in the 90s. The patient's oropharynx was sprayed with cetacaine spray. The patient was switched to a nasal cannula at 10L/min, and the patient maintained spontaneous respirations. 10mg of IV ketamine was administered prior to glidescope insertion. A grade 1 view was obtained. A 7.0 endotracheal tube was inserted through the trachea. The ETT was taped at 24cm by the respiratory team. Intubation was atraumatic with teeth/gums intact. Bilateral breath sounds were auscultated with +ETCO2. Another 10mg of IV ketamine was administered. After intubation, the patient's HR 110s, BP 120/80, O2 sats 90s on the ventilator. A portable CXR was ordered confirming ETT placement. Sedation was to be ordered by the ICU team. Care was returned to the ICU team. Physical Exam Vital Signs: Last Vital Signs Temp 98.6 F 08/23/19 23:02 Pulse 105 H 08/23/19 23:47 Resp 34 H 08/23/19 23:47 BP 83/60 L 08/23/19 23:47 Pulse Ox 94 08/23/19 23:47 Results & Data Medications Administered Albuterol (Duoneb) 3 ml NEB Q4R [facility] Stop: 09/19/19 22:59 Last Admin: 08/23/19 19:04 Dose: 3 ml Documented by: [id number] Admin: 08/23/19 16:41 Dose: Not Given Documented by: [id number] Admin: 08/23/19 11:06 Dose: 3 ml Documented by: [id number] Admin: 08/23/19 07:34 Dose: 3 ml Documented by: [id number] Admin: 08/23/19 03:41 Dose: 3 ml Documented by: [id number] Admin: 08/22/19 23:06 Dose: 3 ml Documented by: [id number] Admin: 08/22/19 19:14 Dose: 3 ml Documented by: [id number] Admin: 08/22/19 15:30 Dose: 3 ml Documented by: [id number] Admin: 08/22/19 11:23 Dose: 3 ml Documented by: [id number] Admin: 08/22/19 07:29 Dose: 3 ml Documented by: [id number] Admin: 08/22/19 03:40 Dose: Not Given Documented by: [id number] Admin: 08/21/19 23:22 Dose: 3 ml Documented by: [id number] Admin: 08/21/19 20:07 Dose: 3 ml Documented by: [id number] Admin: 08/21/19 15:33 Dose: 3 ml Documented by: [id number] Admin: 08/21/19 11:21 Dose: 3 ml Documented by: [id number] Admin: 08/21/19 07:32 Dose: 3 ml Documented by: [id number] Admin: 08/21/19 03:50 Dose: 3 ml Documented by: [id number] Admin: 08/20/19 22:29 Dose: 3 ml Documented by: [id number] Aspirin (Ecotrin Ectab) 81 mg PO DAILY [facility] Stop: 09/20/19 08:59 Last Admin: 08/23/19 07:29 Dose: 81 mg Documented by: [id number] Admin: 08/22/19 07:39 Dose: 81 mg Documented by: [id number] Admin: 08/21/19 08:36 Dose: 81 mg Documented by: [id number] Dextrose (Dextrose 50%) 25 - 50 ml IV UD PRN; Protocol PRN Reason: Hypoglycemia Protocol Stop: 09/19/19 21:22 Last Admin: 08/23/19 21:14 Dose: 25 ml Documented by: [id number] Ferrous Sulfate (Feosol) 325 mg PO DAILY [facility] Stop: 09/20/19 08:59 Last Admin: 08/23/19 07:29 Dose: 325 mg Documented by: [id number] Admin: 08/22/19 07:39 Dose: 325 mg Documented by: [id number] Admin: 08/21/19 08:36 Dose: 325 mg Documented by: [id number] Furosemide (Lasix) 20 mg PO QAM [facility] Stop: 09/22/19 09:59 Last Admin: 08/23/19 10:11 Dose: 20 mg Documented by: [id number] Guaifenesin (Mucinex) 1,200 mg PO Q12 [facility] Stop: 09/22/19 20:59 Last Admin: 08/23/19 19:23 Dose: 1,200 mg Documented by: [id number] Methylprednisolone 40 mg/ (Syringe) 0.64 mls @ 1.5 mls/min IV DAILY [facility] Stop: 09/21/19 08:59 Last Admin: 08/23/19 07:33 Dose: 1.5 mls/min Documented by: [id number] Admin: 08/22/19 09:55 Dose: Not Given Documented by: [id number] Doxycycline Hyclate 100 mg/ (Dextrose) 110 mls @ 50 mls/hr IV Q12H [facility] Stop: 08/30/19 12:59 Last Infusion: 08/23/19 15:04 Dose: 0 mls/hr Documented by: [id number] Admin: 08/23/19 12:54 Dose: 50 mls/hr Documented by: [id number] Aztreonam 2,000 mg/ Dextrose 110 mls @ 100 mls/hr IV Q8H [facility]; Protocol Stop: 08/31/19 00:00 Last Admin: 08/23/19 23:44 Dose: 100 mls/hr Documented by: [id number] Insulin Aspart (Novolog Flexpen) 0 units SC ACHS [facility] Stop: 09/20/19 20:59 Last Admin: 08/23/19 20:38 Dose: Not Given Documented by: [id number] Cosigned by: [id number] Admin: 08/23/19 17:21 Dose: 2 units Documented by: [id number] Cosigned by: [id number] Admin: 08/23/19 11:30 Dose: 4 units Documented by: [id number] Cosigned by: [id number] Admin: 08/23/19 07:28 Dose: 10 units Documented by: [id number] Cosigned by: [id number] Admin: 08/22/19 20:38 Dose: 2 units Documented by: [id number] Cosigned by: [id number] Admin: 08/22/19 17:36 Dose: 9 units Documented by: [id number] Cosigned by: [id number] Admin: 08/22/19 11:50 Dose: 9 units Documented by: [id number] Cosigned by: [id number] Admin: 08/22/19 07:38 Dose: 14 units Documented by: [id number] Cosigned by: [id number] Admin: 08/21/19 21:27 Dose: 8 units Documented by: [id number] Cosigned by: [id number] Oseltamivir Phosphate (Tamiflu) 30 mg PO BID [facility] Stop: 08/25/19 21:59 Last Admin: 08/23/19 19:23 Dose: 30 mg Documented by: [id number] Admin: 08/23/19 07:34 Dose: 30 mg Documented by: [id number] Admin: 08/22/19 20:31 Dose: 30 mg Documented by: [id number] Admin: 08/22/19 07:45 Dose: 30 mg Documented by: [id number] Admin: 08/21/19 20:27 Dose: 30 mg Documented by: [id number] Admin: 08/21/19 14:35 Dose: Not Given Documented by: [id number] Admin: 08/20/19 21:48 Dose: 30 mg Documented by: [id number] Potassium Chloride (Klor-Con M20) 20 meq PO DAILY [facility] Stop: 09/20/19 08:59 Last Admin: 08/23/19 09:59 Dose: Not Given Documented by: [id number] Admin: 08/22/19 07:40 Dose: 20 meq Documented by: [id number] Admin: 08/21/19 08:36 Dose: 20 meq Documented by: [id number] Rivaroxaban (Xarelto) 15 mg PO QDD [facility] Stop: 09/21/19 16:29 Last Admin: 08/23/19 17:21 Dose: 15 mg Documented by: [id number] Admin: 08/22/19 17:37 Dose: 15 mg Documented by: [id number] Vitamin D (Vitamin D3) 5,000 units PO DAILY [facility] Stop: 09/20/19 08:59 Last Admin: 08/23/19 07:32 Dose: 5,000 units Documented by: [id number] Admin: 08/22/19 07:41 Dose: 5,000 units Documented by: [id number] Admin: 08/21/19 08:34 Dose: 5,000 units Documented by: [id number]
[2019-08-24] MEDS: DOBUTamine / D5W 500 MG/250 ML BAG IV SCH ×5 (00:15→19:36)
[2019-08-24] MEDS: propofoL 1,000 MG/100 ML VIAL IV SCH ×5 (00:16→22:16)
[2019-08-24] MEDS: ALBUT/IPRATROP 3MG/0.5MG NEB 3 ML VIAL NEB SCH ×6 (00:51→19:57)
[2019-08-24] MEDS ORDERED: VANCOMYCIN HCL 2,000 MG in SODIUM CHLORIDE 0.9% 500 ML IV SCH (01:00)
[2019-08-24] MEDS ORDERED: FUROSEMIDE 40 MG in SYRINGE 0 ML IV ONE (01:25)
--- NOTE | 2019-08-24 02:03 | Procedure Note ---
Procedure Note Date of Service August 24, 2019 Note INTERNAL JUGULAR CENTRAL LINE PROCEDURE NOTE: Procedure: Internal Jugular Central Line Placement Attending: Dr. Rosalio Collier Provider: SAIMA Ortega Indication: Central Drug Administration Anesthesia: Lidocaine 1% Line was placed emergently. A time-out was completed verifying correct patient, procedure, site, positioning, and implants(s) or special equipment if applicable. Patients left neck was cleansed and draped in the typical sterile fashion using Chloraprep. The left internal Jugular Vein and Carotid Artery were identified using ultrasound. The superficial tissue was anesthetized using 3 mL of 1% lidocaine without epinephrine under direct visualization with the ultrasound. After adequate anesthetization was achieved, the left internal Jugular vein was cannulated under direct ultrasound guidance using an introducer needle on a syringe. Good venous blood return was maintained prior to removal of syringe from introducer needle. Using Seldinger Technique, a guide wire was advanced through the introducer needle without resistance. The introducer needle was removed and ultrasound images were obtained of the guide wire within the Internal Jugular Vein and saved to the patients medical record. A small inci michela was made in penetrating fashion at the guide wire insertion site utilizing an 11 blade scalpel. The dilator was advanced to the vessel without resistance. The dilator was exchanged for the triple lumen catheter which was advanced into the vessel without resistance. The guide wire was removed intact from the catheter without issue. Claves were placed on each catheter tip with confirmation of good blood flow from each lumen. Each port was easily flushed with sterile saline. The catheter was placed at 17 cm and sutured in place. BioPatch was applied to the catheter and a sterile Tegaderm dressing was applied over the catheter with careful attention to sterility. Patient tolerated procedure well. No immediate complications were met. Post procedure x-ray was completed, placement was appropriate and no pneumothorax was noted. Images obtained are saved for permanent record Procedural Ultrasound Guidance: Procedure Date: 08/24/2019 Indication: Central venous line placement Attending: Dr. Rosalio Collier Provider: SAIMA Ortega Artery AND Vein visualized: Yes Compressible Vein: Yes Guidewire or Short Catheter seen in vein prior to dilation: Yes Line confirmed in Vein with ultrasound: Yes Images obtained are saved for permanent record. Coding CPT Codes Tubes, Drains, and Vasc Access - Tubes, Drains, and Vasc Access: [id number] Place catheter in vein superior or inferior vena cava ([id number]) Tubes, Drains, and Vasc Access - Tubes, Drains, and Vasc Access: [id number] Ultrasound Guidance For Vascular ([id number])
--- NOTE | 2019-08-24 02:03 | Procedure Note ---
Procedure Note Date of Service August 24, 2019 Note ARTERIAL LINE PROCEDURE NOTE: Procedure: Arterial Line Placement Attending: Dr. Rosalio Collier Provider: SAIMA Ortega Indication: Monitoring on Pressors Anesthesia:Lidocaine 1% Line was placed emergently. A time-out was completed verifying correct patient, procedure, site, positioning, and implant(s) or special equipment if applicable. Allens test was performed to ensure adequate perfusion. Patients right wrist was prepped and draped in the usual sterile fashion. Ultrasound guidance was used to aid needle placement. A 20g Arrow arterial line was introduced into the right radial artery. Catheter was threaded, and the needle was removed with appropriate blood return. Good waveform was observed. The patient tolerated the procedure well. Blood Loss: Minimal Complications: None Coding CPT Codes Tubes, Drains, and Vasc Access - Tubes, Drains, and Vasc Access: [id number] Place Catheter In Artery ([id number]) Tubes, Drains, and Vasc Access - Tubes, Drains, and Vasc Access: [id number] Ultrasound Guidance For Vascular ([id number])
--- NOTE | 2019-08-24 02:03 | Critical Care Progress Note ---
Date of Service August 24, 2019 Assessment & Plan (1) Respiratory failure with hypoxia and hypercapnia: Reason Critically Ill: 73-year-old transferred back to the ICU for acute respiratory failure requiring intubation, hypotensive on multiple vasopressors, currently being treated for ARDS, sepsis, ARF Neuro - [facility] ICU: Negative Cardiac - Systolic CHF/hypotensioncardiogenic versus septic shock echo from 06/18 showed EF 20 to 25% with significant akinesis of the anterior wall -Currently on Lasix and metolazone at home -Chest x-ray showed progression of pulmonary congestion consistent with ARDS versus CHF exacerbation -BNP 30,000, previously 7000 on this admission -Currently on Lasix drip, patient's is not currently interested and transfer for CRRT, plan to continue to manage medically here -Minimizing IV fluids -Currently on dobutamine, norepinephrine, vasopressin drips -Mixed venous SVO2 77 -Monitor strict I's and O's -Continue to monitor on telemetry -Lactate 2.0, procalcitonin 4; given vancomycin, doxycycline, aztreonam; blood cultures repeated; see ID below Proximal V. tach/PAF/LBBBpatient s/p pacemaker with AICD - On Xarelto, ASA at home -Holding MTP in the setting of hypotension -Maximize electrolytes Respiratory - Acute hypoxic hypercapnic respiratory failure/ARDSpatient recently diagnosed with influenza A pneumonia, consider secondary infection; likely mixed with CHF exacerbation -Influenza A positive on admission on Tamiflu x5 days -CT chest was suggestive of multifocal bronchopneumonia and components of pulmonary edema on admission -Chest x-ray revealed progression of pulmonary congestion history of 30 to 40 pack/year tobacco abuse quit decades ago -Patient was placed on BiPAP without improvement, requiring intubation -Vent settings: AC VC 30/400/15/60 percent; AB.25/39/156/17 -Continue DuoNeb and IV Solu-Medrol -Continue aggressive diuresis ARDS net protocol GI - N.p.o. on high dose of vasopressors RENAL/LYTES - Acute renal failurebaseline creatinine 1.4, now 1.8; patient oliguric despite aggressive diuresis -likely prerenal/ATN secondary to hypotension -Proceed with IV Lasix drip; transfer for CRRT offered, said patient would not be interested in dialysis and would like to proceed with medical management here -Minimizing IV fluids due to severe pulmonary congestion -Maintain maps greater than 65 -Avoid nephrotoxins -Trend creatinine - Foleystrict I's and O's ENDO - DM type IIpatient on glipizide, transitioned to sliding scale insulin, currently euglycemic -ICU hyperglycemic protocol HEME - H&H stable, monitor routine CBCs ID - Sepsispatient test positive for influenza A, blood cultures negative to date -Consider secondary pulmonary infection -CT from 08/18 suggestive of bronchopneumonia; severe worsening of pulmonary congestion on CXR today -Blood cultures repeated and pending, pro calcitonin 4, lactate 2.0 -Patient now on vancomycin, doxycycline, aztreonam, Tamiflu LINES/IV ACCESS - CVC, A-line, ETT DVT PROPHYLAXIS - SCDs, patient on Xarelto CODE STATUSdiscussed with patient's and determined patient is conditional DNR; no shocks, no compressions, no ACLS medications in the event his heart were to stop (2) Acute respiratory distress syndrome (ARDS): (3) Sepsis: (4) Pneumonia: (5) Hypoglycemia: (6) CHF (congestive heart failure): (7) Influenza A: (8) Dyspnea: (9) Acute on chronic renal failure: (10) ICD (implantable cardioverter-defibrillator) in place: (11) Atrial fibrillation: Supervising Physician Co-Signing Physician Notes I saw and evaluated the patient with Chaz Reese, and agree with findings and plan as documented in the note. 73-year-old patient was admitted initially to the ICU because of influenza a positive and pneumonia with bilateral infiltrate and shock. Patient gradually improved was ambulating in the ICU without any distress and was downgraded to the floor. On the floor patient was found to be in respiratory distress was given Lasix 40 mg IV started on BiPAP. Because he was still in respiratory distress he was sent to the ICU and decision to intubate the patient was made. After intubation patient was found to have low blood pressure for which central line was placed in and patient was started on inotrope dobutamine given that the ejection fraction is only 20%. BNP came out to be 30,000 on the time of admission patient's BNP was 7000. Patient also needed addition of norepinephrine and vasopressin to maintain a systolic blood pressure greater than 65. Patient was not making good amount of urine so instead of giving bolus to the patient patient was started on Lasix drip 10 mg/h which was increased to 50 mg/h. Patient is still getting a lot of IV fluids which includes vasopressors, antibiotics and sedatives. Given patient cannot be given anything by mouth as he is on 3 pressors. We will try to cut down on IV fluids as much as we can. And titrate Lasix to urine output. Goal is to keep the patient negative balance. If the patient urine output does not improve patient will need CRRT. It was explained to the family that patient might need CRRT and for that he will need to be transferred to a different facility. who is the decision maker said that she does not want him to be transferred to a different facility even if it means that he might not make it. Patient is pulmonary edema with stage III ARDS PaO2 FiO2 ratio is 87. Patient is on high PEEP low tidal volume with permissive hypercapnia protocol. Keep plateau less than 30. Patient is breathing over the vent right now. We will respiratory rate around 30-32. Keep PaO2 greater than 55. Patient has left IJ, left radial arterial line. Prognosis is guarded. I have spent more than 50% of this encounter in counseling and/or coordination of care with patient. Subjective It was brought to my attention that the patient Lavell Das a 73-year-old male who was recently treated in the ICU for sepsis, hypotension, influenza A was in respiratory distress on the floor and needed to be transferred to the ICU for intubation. On arrival to the ICU, patient was tachypneic with respiratory rate of 40 and appeared anxious and distressed with significant work of breathing despite use of BiPAP. Due to patient's goiter with compression on the trachea from a previous CT, decision was made to consult anesthesia for the intubation. Patient was intubated by the hydrogen power plant manager educational assistant without difficulty. Patient was also started on vasopressors and a central line and arterial line were emergently placed. Repeat chest x-ray showed significantly worsened pulmonary congestion. Patient was also oliguric despite use of IV diuretics. Dr. Collier was contacted regarding patient's deteriorating status and elected to come into the hospital to manage the patient. I talked to the patient's , Arlet, to update her on the critical status and course of her and had a conversation regarding the patient's CODE STATUS. She opted to make the patient a conditional code in which if his heart were to stop we will not do chest compressions, defibrillation, or proceed with ACLS medications. CODE STATUS was then updated. Currently the patient remains on multiple vasopressors, and is intubated with high ventilator requirements. Patient is critically ill with poor prognosis, will remain in ICU for further management for now. Review of Systems Review of Systems: Unobtainable due to endotracheal tube Physical Exam Eyes: PERRL, conjunctivae normal, anicteric sclerae ENMT: external ear and nose normal, oropharynx normal Endotracheal tube Respiratory: Lungs coarse and diminished in all miller, bilateral breath sound s, tachypnea, symmetrical chest wall movement Cardiovascular: Rate/Rhythm: + tachycardic Vessels: no JVD Extremities: + pedal edema Gastrointestinal (Abdomen): Abdomen soft, distended, nontender, bowel sounds present in all 4 quadrants Skin: no rashes, warm and dry Neurologic: Unable to assess Psychiatric: Unable to assess Genitourinary: Malagon, oliguria Results & Data Vital Signs (Past 12 Hours) Vital Signs Temp Pulse Pulse Resp BP BP Pulse Ox 08/24/19 00:52 112 H 40 H 97 08/23/19 23:47 105 H 34 H 83/60 L 94 08/23/19 23:45 100 H 39 H 94 08/23/19 23:42 111 H 39 H 106/53 L 93 08/23/19 23:37 118 H 41 H 83/61 L 94 08/23/19 23:32 99 H 42 H 117/61 96 08/23/19 23:31 122 H 43 H 96 08/23/19 23:30 107 H 43 H 96/61 L 96 08/23/19 23:20 121 H 43 H 92/31 L 97 08/23/19 23:15 128 H 44 H 91 08/23/19 23:14 129 H 42 H 79/66 L 86 L 08/23/19 23:02 37 C 138 H 28 H 100/68 91 08/23/19 23:01 149 H 42 H 100/68 90 08/23/19 23:00 131 H 37 H 87 L 08/23/19 22:45 135 H 30 H 89 L 08/23/19 22:41 155 H 08/23/19 22:30 153 H 33 H 85 L 08/23/19 22:15 128 H 29 H 86 L 08/23/19 22:00 135 H 33 H 08/23/19 21:46 116 H 29 H 95 08/23/19 21:45 135 H 43 H 154/99 H 95 08/23/19 21:30 130 H 41 H 100 08/23/19 21:24 161 H 33 H 100 08/23/19 21:16 174 H 27 H 153/104 H 100 08/23/19 21:15 169 H 30 H 100 08/23/19 21:09 145 H 36 H 86 L 08/23/19 21:00 154 H 33 H 100/67 80 L 08/23/19 20:45 129 H 13 63 L 08/23/19 20:00 100 H 08/23/19 19:16 36.9 C 97 H 20 113/73 91 08/23/19 19:06 97 H 18 90 08/23/19 16:00 36.8 C 78 18 104/56 L 96 08/23/19 14:30 85 24 88 L 08/23/19 14:15 91 H 26 H 90 08/24/19 02:39 08/24/19 02:39 Coding Level of Care Code Critical Care 1st 30-74 mins Diagnoses Respiratory failure with hypoxia and hypercapnia J96.91; J96.92 Acute respiratory distress syndrome (ARDS) J80 Sepsis A41.9 Sepsis acute organ dysfunction status: unspecified Sepsis type: sepsis due to unspecified organism Pneumonia J18.9 Laterality: left Lung location: unspecified part of lung Pneumonia type: due to unspecified organism Hypoglycemia E16.2 CHF (congestive heart failure) I50.9 Heart failure chronicity: acute on chronic Heart failure type: unspecified Influenza A J10.1 Dyspnea R06.00 Acute on chronic renal failure N17.9; N18.9 ICD (implantable cardioverter-defibrillator) in place Z95.810 Atrial fibrillation I48.91 Time Spent (min) 145 (1) CHF (congestive heart failure) Heart failure chronicity: acute on chronic Heart failure type: unspecified Qualified Code(s): I50.9 - Heart failure, unspecified (2) Sepsis Sepsis acute organ dysfunction status: unspecified Sepsis type: sepsis due to unspecified organism Qualified Code(s): A41.9 - Sepsis, unspecified organism (3) Pneumonia Laterality: left Lung location: unspecified part of lung Pneumonia type: due to unspecified organism Qualified Code(s): J18.9 - Pneumonia, unspecified organism
[2019-08-24] MEDS ORDERED: FUROSEMIDE 60 MG in SYRINGE 0 ML IV ONE (02:41)
[2019-08-24 02:49] LABS: iSTAT Arterial Blood Gas HCO3 17 meg/L (19-24); iSTAT Arterial Blood Gas pCO2 38 mmHg (35-46); iSTAT Arterial Blood Gas pH 7.27 (7.35-7.45); iSTAT Arterial Blood Gas pO2 87 mmHg (80-95); iSTAT Carbon Dioxide 19 mEq/l (24-31); iSTAT FiO2 100 %; iSTAT Site Art Line
[2019-08-24 02:52] LABS: Hematocrit (blood only) 36.2 % (42-52); Hemoglobin 11.8 g/dL (14.0-18.0); Mean Corpuscular Hemoglobin 30.6 pg (25-34); Mean Corpuscular Hgb Conc 32.6 g/dL (32-36); Mean Platelet Volume 10.5 fL (7.4-10.4); Platelet Count 575 K/uL (130-400); RDW Coefficient of Variation 17.7 % (11.5-14.5); RDW Standard Deviation 60.6 fL (36.4-46.3); Red Blood Count 3.85 M/uL (4.7-6.1); White Blood Count 18.48 K/uL (4.8-10.8)
[2019-08-24] MEDS: DOXYCYCLINE HYCLATE 100 MG in DEXTROSE 5% 100 ML IV SCH (02:56)
[2019-08-24 03:16] LABS: Basophils # (auto) 0.04 K/uL (0-0.2); Basophils % (auto) 0.2 %; Immature Granulocytes # (auto) 0.22 K/uL (0.00-0.02); Immature Granulocytes % (auto) 1.2 %; Lymphocytes # (auto) 0.45 K/uL (1.2-3.4); Lymphocytes % (auto) 2.4 %; Monocytes # (auto) 0.63 K/uL (0.11-0.59); Monocytes % (auto) 3.4 %; Neutrophils # (auto) 17.14 K/uL (1.4-6.5); Neutrophils % (auto) 92.8 %
[2019-08-24 03:19] LABS: BUN Creatinine Ratio 31.8 (10-20); Calcium 7.6 mg/dl (8.5-10.1); Est GFR (African American) 40.1; Est GFR (Non-African American) 34.6; Magnesium 2.1 mg/dl (1.8-2.4); Phosphorus 3.7 mg/dl (2.5-4.9); Potassium 4.6 mmol/L (3.5-5.1); Troponin I 3.4 ng/ml (0-0.045)
[2019-08-24] MEDS: NOREPINEPHRINE BIT INJ 16 MG in DEXTROSE 5% 500 ML IV SCH ×2 (03:23→20:09)
[2019-08-24] MEDS ORDERED: fentaNYL citrate 100 MCG/2 ML VIAL IV PRN (03:34)
[2019-08-24] MEDS: VASOPRESSIN 20 UNITS in 0.9 % SODIUM CHLORIDE 100 ML IV SCH ×3 (03:53→22:42)
[2019-08-24] MEDS: FUROSEMIDE 100 MG in DEXTROSE 5% 90 ML IV SCH ×3 (03:54→16:05)
[2019-08-24] MEDS: fentaNYL DRIP 1,250 MCG/250 ML BAG IV SCH ×2 (03:55→14:34)
[2019-08-24 04:20] LABS: iSTAT Arterial Blood Gas HCO3 17 meg/L (19-24); iSTAT Arterial Blood Gas pCO2 39 mmHg (35-46); iSTAT Arterial Blood Gas pH 7.25 (7.35-7.45); iSTAT Arterial Blood Gas pO2 156 mmHg (80-95); iSTAT Carbon Dioxide 18 mEq/l (24-31); iSTAT FiO2 70 %; iSTAT Site Art Line
[2019-08-24] MEDS ORDERED: Nursing to Pharmacy Communication ONE (04:32)
[2019-08-24 04:34] LABS: iSTAT Arterial Blood Gas HCO3 18 meg/L (19-24); iSTAT Arterial Blood Gas pCO2 42 mmHg (35-46); iSTAT Arterial Blood Gas pH 7.23 (7.35-7.45); iSTAT Arterial Blood Gas pO2 49 mmHg (80-95); iSTAT Carbon Dioxide 19 mEq/l (24-31); iSTAT FiO2 60 %; iSTAT Site Heel Stick
--- NOTE | 2019-08-24 05:37 | Communication Note ---
Date of Service: August 24, 2019 Critical CARE addendum: Patient was upgraded to the ICU because of acute respiratory distress and failed BiPAP while on the floor. Patient was eventually intubated and put on ventilator support. Patient blood pressure was on the lower side so the left IJ was put in and patient was started on dobutamine with addition of norepinephrine and vasopressin to maintain his blood pressure. Chest x-ray showed bilateral alveolar infiltrates diffuse. Patient was given dose of vancomycin and Aztreonam by the primary team. Patient was already on antibiotic doxycycline and Rocephin. Will DC aztreonam and Hold vancomycin. While in the ICU patient was not given antihypertensive medication including diuretics because of his low blood pressure. Once his blood pressure improved patient was restarted on his oral diuretics prior to downgrade from ICU. Given that the patient has ejection fraction 20% likely seems the patient is fluid overloaded leading to ARDS-like picture with initial ABG showing PO2 of 8700% FiO2 with PEEP of 8. PEEP was increased to 15, tidal volume was decreased to 400 with a more of low tidal volume high PEEP ventilation. Plateau at that time was 27. Respiratory rate was set at 30. There was improvement in oxygenation after the change in the vent settings. The repeat ABG on 80% FiO2 showed PaO2 of 157. FiO2 was brought down to 60%. Continue with PEEP of 15 for the time being. On the vent patient has double triggering occasionally. Sedation was increased so that patient does not override the vent too much. Patient is right now maxed out on dobutamine, is on vasopressin 0.04 units and is on norepinephrine 0.21 MCG per KG. His map is greater than 65 for the time being. Mixed venous showed saturation of 77%. Patient was started on Lasix drip 10 mg/h, will increase it to titrate urine output. Goal is to make the patient negative balance. Go down on input to as minimum as possible. Case was discussed with family at bedside in the presence of who is the decision maker. Family was made aware that patient is not making enough urine and he might end up needing continuous renal replacement therapy. Unfortunately which is not provided here and he might need to be transferred to a different facility where it is done. said that she does not want him to be transferred to any facility but to continue with the care in the hospital. Family was made aware that if he does not make urine even by increasing the dose of Lasix then he is most likely not going to make it. Prognosis is very guarded. Family understands and wanted patient to be no CPR but continue with vasopressor support for the time being.
[2019-08-24] MEDS ORDERED: INSULIN ASPART 100 UNITS/ML 3 ML PEN SC SCH ×2 (06:00→12:00)
--- NOTE | 2019-08-24 06:41 | XRay Report ---
XR chest 1V portable CLINICAL HISTORY: cvc placement COMPARISON STUDY: Chest radiograph August 24, 2019 at 12:14 AM. FINDINGS: Right subclavian biventricular pacer/AICD is in place. Tip of endotracheal tube 6.6 cm abov e the jade. Tip of left internal jugular central line projects over the proximal SVC. There is no p neumothorax. Left costophrenic angle is excluded. There are suspected small bilateral pleural effusio ns. Extensive bilateral airspace opacities persist. IMPRESSION: 1. Tip of endotracheal tube 6.6 cm above the jade. 2. No significant change in extensive bilateral airspace opacities which favor pulmonary edema. Howev er, pneumonia could appear similar. ACT 112: Negative or not required by law. Electronically signed by: Frankie Cherry M.D. 08/24/2019 6:40 AM
--- NOTE | 2019-08-24 07:12 | XRay Report ---
XR chest 1V portable CLINICAL HISTORY: intubation COMPARISON STUDY: Chest radiograph August 23, 2019. FINDINGS: Right subclavian biventricular pacer/AICD is in place. Interval placement of an endotrachea l tube is noted with tip 6.6 cm above the jade. A small right pleural effusion is noted. There is a suspected small left pleural effusion. There is no pneumothorax. Cardiomegaly is unchanged. Extensiv e bilateral airspace opacities persist. IMPRESSION: 1. Persistent extensive bilateral airspace opacities which favor pulmonary edema. However, pneumonia could appear similar. 2. Tip of endotracheal tube 6.6 cm above the jade. ACT 112: Negative or not required by law. Electronically signed by: Frankie Cherry M.D. 08/24/2019 7:11 AM
[2019-08-24 07:44] LABS: iSTAT Arterial Blood Gas HCO3 17 meg/L (19-24); iSTAT Arterial Blood Gas pCO2 36 mmHg (35-46); iSTAT Arterial Blood Gas pO2 188 mmHg (80-95); iSTAT Carbon Dioxide 18 mEq/l (24-31); iSTAT FiO2 60 %; iSTAT Site Art Line
[2019-08-24] MEDS ORDERED: INSULIN HUMAN NPH SC SCH (09:00)
--- NOTE | 2019-08-24 09:00 | Hospitalist Progress Note ---
Date of Service August 24, 2019 Assessment & Plan (1) Influenza A: Mr. Das is a 73yo M with a PMHx of CHF, type 2 diabetes, pAfib, CKD, dyslipidemia, hypertension, left bundle branch block, paroxysmal V. tach, and gout who has been admitted for septic shock in the setting of influenza A. He has been readmitted to the ICU for acute respiratory failure. Acute respiratory failure 2/2 acute on chronic CHF with ARDS Worsening respiratory status overnight, failed BiPAP on the floor. Intubated and transferred back to the ICU overnight Chest x-ray shows diffuse pulmonary edema, concern for ARDS Propofol for sedation Received 60 mg Lasix yesterday, poor urine output last 12 hours. COntinue lasix gtt. Blood gas 7.30/36/188/18 Continue mechanical ventilatory support Sepsis 2/2 influenza +/-superimposed pneumonia Flu a positive on admission CT chest shows multifocal bronchopneumonia with component of pulmonary edema Lactate 5.5, normalized 08/22 Continue Tamiflu Empiric Vanco/aztreonam narrowed to azithromycin/rocephin and subsequently Doxy Low threshold to broaden to Cefepime/Vanc vs Vanc/Zosyn given severity of illness Methylprednisolone 40 mg daily initiated for reduced air movement and wheezing, pulmonary continuing to follow. Systolic CHF, acute on chronic CHF Acutely worsened overnight, pulmonary edema worsened, troponin uptrending Echo 06/18 showed EF 20-25% with anterior wall akinesis CT chest, CXR suggestive of fluid overload, BNP elevated Continue aspirin Hold metoprolol, metolazone for hypotension. Minimize IVF Currently requiring triple pressor support, dobutamine, norepi, vasopressin. Target map greater than 65mm V. tach/PAF/LBBB Status post pacemaker with AICD - ~25 beat of VTach last night, AICD did not register/fire. Cardiology interrogated, feel AICD response was appropriate given the length and rate. Continue Xarelto Continue aspirin as above Metoprolol held as above Transaminitis, hyperbilirubinemia, resolved Likely 2/2 shock liver in the setting of sepsis - Normalized CMP every morning given worsening status ROGELIO on CKD Baseline creatinine 1.2 Creatinine acutely elevated to 1.9, down trended to 1.4, increased back to 1.86 Likely in the setting of acute respiratory failure and acute on chronic CHF as above Lasix drip, strict GIL's Type 2 diabetes mellitus, presentation with hypoglycemia Initial presentaiton suspect hypoglycemia in the setting of acute illness in combination with A[employer] TECHNICIAN glipizide ICU hyperglycemia protocol, Q4H checks while intubated FEN/GI: N.p.o. due to ETT DVT prophylaxis: Continue [employer] TECHNICIAN Xarelto via OG Dispo: Continue ICU admission (2) Hyponatremia: (3) Acute on chronic renal failure: (4) Diarrhea: (5) Hypotension: (6) Pneumonia: (7) Hypoglycemia: (8) CHF (congestive heart failure): (9) Sulfonylurea poisoning: (10) Dyspnea: (11) Cough: (12) Anemia: (13) ICD (implantable cardioverter-defibrillator) in place: Supervising Physician Co-Signing Physician Notes Resident Physician Supervision Note: I examined the patient. Discussed with Dr. Hong Carrillo and agree with findings and plan as documented in the note. Any exceptions or clarifications are listed here: none. Events of last 24 hours reviewed including transfer of patient to PCU. Late last evening it appears he developed significant tachycardia and complained to nursing staff that he was acutely dyspneic. Juan Miguel barnard ultimately called and he was transferred to ICU. Later on he was intubated. CXR with diffuse infiltrates. There was no mention of an aspiration event, chest pain, etc. During my personal bedside rounds the pt's and daughter were at bedside; gave broad update. He remains intubated, sedated on propofol, and on 3 pressors (vasopressin, norepi, and dobutamine). Also on insulin infusion. UOP has been robust on lasix IV. Exam: gen - intubated, sedated HEENT - enteric tube present; ETT present neck - mild JVD present heart - irregular, s1 s2 lungs - decreased BS bases, no rales or wheeze abd - soft NT ext - no edema trop - drawn middle of night - 3 Cr 2.2 A/P: 1. septic shock 2nd flu A infection & multifocal pneumonia - septic shock had resolved; weaned off pressors; transferred to PCU on 08/23. Early this am 08/24 placed back on pressors for recurrent shock. Suspect recurrent shock is cardiogenic in origin. 2. fluA infection - day 4-5 of tamiflu; finish course, supportive care. 3. b/l pneumonia - patient is <90 days since last hospital stay thus is at risk of gram negative pneumonia. He is critically ill on the vent. Cannot rule out that if pneumonia is present it is caused by atypical infection or gram negative pathogen. Would be in favor of broadening his abx at this time given the critical nature of his illness. 4. NSVT - ICD interrogated; functioning fine. 5. severe chronic systolic CHF - developed severe acute/chronic CHF last evening requiring BIPAP and lasix IV followed by intubation. It appears his respiratory distress came on rather suddenly. Cannot rule out ACS leading to flash pulmonary edema. Either way attempts at aggressive diuresis are underway given the critical nature of his illness. Cont inotropic support w/ dobutamine. 6. hyponatremia - multifactorial - low but acceptable. 7. CAD - previous mild troponin elevation was likely myocardial demand ischemia in setting of septic shock. Troponin timmy to 3 following his intubation. I cannot exclude an acute ACS that contributed to his decompensation. Will check another troponin in am. 8. a.fib - developed rapid a.fib last evening. Uncertain if the rapid a.fib was the primary driver medic of his decompensation or simply the byproduct of his respiratory distress, acute/chronic systolic CHF, etc. Either way rates are improved relative to last night. Cont anticoagulation. 9. ROGELIO in setting of CKD stage 3 - ROGELIO had resolved, now Cr timmy to over 2 overnight in setting of critical illness. Likely multifactorial -- cardiorenal syndrome in setting of acute/chronic systolic CHF, shock, ATN, etc. Supportive care; serial BMPs. 10. acute hypoxic resp failure - multifactorial - pulmonary edema, +/- pneumonia, +/- fluA pneumonitis. s/p intubation this am. Cannot exclude ARDS but cxr findings most likely cardiogenic pulmonary edema. Aggressive diuresis. Vent management per ICU. Appreciate ICU, cardiology, etc assistance. Documented By: Amlo Mendoza MD Subjective LImited by ETT. Per sign out and discussion with ICU team pt was intubated for worsening respiratory distress overnight. Patient was hypotensive so IJ was placed, and patient was placed on dobutamine, norepinephrine, and vasopressin for pressure support. Diffuse alveolar infiltrates appreciated on x-ray. Case discussed with family this morning. Patient has conditional code, they would like ventilatory support but would not want CPR in the case of cardiac arrest. They do not want her transferred to any tertiary care for CRRT at this time, are aware that he is oliguric with poor renal function at this time. Review of Systems Review of Systems: Unobtainable due to cognitive status Physical Exam Physical Exam: General: A&Ox3. NAD. Cooperative. HEENT: Atraumatic, normocephalic. Pulm: CTAB A&P. -wheezes, -rales, -rhonchi. Symmetrical chest rise. No increase work of breathing. No respiratory distress. Cardiac: tachycardic. No murmurs/rubs appreciated. JVD appreciated about 1 cm above the clavicle. Abdominal: Softly distended, bowel sounds diminished. Nonrigid. Extremities: Distal PT pulses intact, diminished to palpation. Extremity cool, dry. Results & Data Vital Signs (Past 12 Hours) Vital Signs Temp Pulse Pulse Resp BP BP Pulse Ox 08/24/19 08:15 94 H 32 H 99 08/24/19 07:05 94 H 32 H 99 08/24/19 05:32 93 H 35 H 98 08/24/19 05:00 100 H 97 08/24/19 04:32 79 36 H 99 08/24/19 04:30 81 97 08/24/19 04:13 100 H 128/77 98 08/24/19 04:00 36.7 C 100 H 99 08/24/19 03:30 102 H 97 08/24/19 03:13 93 H 100/64 97 08/24/19 03:00 115 H 99 08/24/19 02:30 126 H 35 H 95 08/24/19 02:14 106 H 86/50 L 94 08/24/19 02:09 123 H 64/51 L 93 08/24/19 02:07 113 H 122/50 L 93 08/24/19 02:06 108 H 97/66 L 94 08/24/19 02:04 98 H 83/55 L 93 08/24/19 02:01 116 H 89/63 L 93 08/24/19 02:00 125 H 92 08/24/19 01:59 122 H 102/65 92 08/24/19 01:56 109 H 99/68 L 92 08/24/19 01:54 127 H 93/68 L 93 08/24/19 01:51 113 H 93/58 L 93 08/24/19 01:48 123 H 90/71 L 93 08/24/19 01:46 139 H 86/53 L 93 08/24/19 01:44 113 H 92/70 L 94 08/24/19 01:41 126 H 106/58 L 94 08/24/19 01:39 135 H 95/68 L 95 08/24/19 01:37 131 H 108/69 96 08/24/19 01:30 128 H 96 08/24/19 01:29 120 H 87/59 L 97 08/24/19 01:26 113 H 90/72 L 95 08/24/19 01:19 125 H 83/49 L 93 08/24/19 01:16 127 H 75/47 L 92 08/24/19 01:13 105 H 82/44 L 91 08/24/19 01:11 94 H 73/41 L 91 08/24/19 01:08 100 H 76/50 L 91 08/24/19 01:06 123 H 72/37 L 91 08/24/19 01:03 108 H 75/46 L 91 08/24/19 01:01 108 H 83/55 L 91 08/24/19 01:00 94 H 91 08/24/19 00:58 116 H 67/43 L 90 08/24/19 00:56 110 H 89/52 L 90 08/24/19 00:53 101 H 84/43 L 91 08/24/19 00:52 112 H 40 H 97 08/24/19 00:51 117 H 72/50 L 91 08/24/19 00:48 113 H 61/41 L 91 08/24/19 00:46 99 H 75/43 L 92 08/24/19 00:43 111 H 72/49 L 92 08/24/19 00:41 110 H 78/51 L 93 08/24/19 00:38 100 H 74/37 L 93 08/24/19 00:36 112 H 72/52 L 93 08/24/19 00:33 100 H 73/44 L 91 08/24/19 00:30 106 H 95 08/24/19 00:27 36.6 C 112 H 116/95 97 08/23/19 23:47 105 H 34 H 83/60 L 94 08/23/19 23:45 100 H 39 H 94 08/23/19 23:42 111 H 39 H 106/53 L 93 08/23/19 23:37 118 H 41 H 83/61 L 94 08/23/19 23:32 99 H 42 H 117/61 96 08/23/19 23:31 122 H 43 H 96 08/23/19 23:30 107 H 43 H 96/61 L 96 08/23/19 23:20 121 H 43 H 92/31 L 97 08/23/19 23:15 128 H 44 H 91 08/23/19 23:14 129 H 42 H 79/66 L 86 L 08/23/19 23:02 37 C 138 H 28 H 100/68 91 08/23/19 23:01 149 H 42 H 100/68 90 08/23/19 23:00 131 H 37 H 87 L 08/23/19 22:45 135 H 30 H 89 L 08/23/19 22:41 155 H 08/23/19 22:30 153 H 33 H 85 L 08/23/19 22:15 128 H 29 H 86 L 08/23/19 22:00 135 H 33 H 08/23/19 21:46 116 H 29 H 95 08/23/19 21:45 135 H 43 H 154/99 H 95 08/23/19 21:30 130 H 41 H 100 08/23/19 21:24 161 H 33 H 100 08/23/19 21:16 174 H 27 H 153/104 H 100 08/23/19 21:15 169 H 30 H 100 08/23/19 21:09 145 H 36 H 86 L 08/23/19 21:00 154 H 33 H 100/67 80 L Resident Activity Tracking Resident Involvement: Resident Care Provided Care Provided: Adult Hospital Medicine (1) Sulfonylurea poisoning Encounter type: initial encounter Injury intent: accidental or unintentional Qualified Code(s): T38.3X1A - Poisoning by insulin and oral hypoglycemic [antidiabetic] drugs, accidental (unintentional), initial encounter (2) CHF (congestive heart failure) Heart failure chronicity: acute on chronic Heart failure type: unspecified Qualified Code(s): I50.9 - Heart failure, unspecified (3) Pneumonia Laterality: left Lung location: unspecified part of lung Pneumonia type: due to unspecified organism Qualified Code(s): J18.9 - Pneumonia, unspecified organism
[2019-08-24] MEDS: methylPREDNISolone 40 MG in SYRINGE 0 ML IV SCH (09:24)
[2019-08-24] MEDS: guaiFENesin 600 MG TABCR PO SCH (09:33)
[2019-08-24] MEDS: CHOLECALCIFEROL 1,000 UNITS TAB PO SCH (09:36)
[2019-08-24] MEDS: FERROUS SULFATE 325 MG TAB PO SCH (10:46)
[2019-08-24] MEDS: ASPIRIN 81 MG ECTAB PO SCH (10:46)
--- NOTE | 2019-08-24 10:48 | XRay Report ---
KUB CLINICAL HISTORY: OG tube placement COMPARISON STUDY: Chest radiograph performed earlier today. FINDINGS: Right subclavian biventricular pacer/AICD is in place. The tip of the nasogastric tube is b elow the lower aspect of this image but at least within the body of the stomach. Cardiomegaly is note d with bilateral airspace opacities. Endotracheal tube is 6.7 cm above the jade. IMPRESSION: Tip of nasogastric tube below the lower aspect of this image but at least within the bod y of the stomach. ACT 112: Negative or not required by law. Electronically signed by: Frankie Cherry M.D. 08/24/2019 10:47 AM
[2019-08-24] MEDS: DOXYCYCLINE HYCLATE 100 MG CAP PO SCH ×2 (11:08→20:21)
[2019-08-24] MEDS: OSELTAMIVIR PHOSPHATE SUSP 30 MG/5 ML UDP PO SCH ×2 (11:08→20:22)
[2019-08-24 11:24] LABS: iSTAT Arterial Blood Gas HCO3 19 meg/L (19-24); iSTAT Arterial Blood Gas pCO2 36 mmHg (35-46); iSTAT Arterial Blood Gas pH 7.33 (7.35-7.45); iSTAT Arterial Blood Gas pO2 192 mmHg (80-95); iSTAT Carbon Dioxide 20 mEq/l (24-31); iSTAT Site Art Line
[2019-08-24 12:28] LABS: iSTAT Arterial Blood Gas HCO3 19 meg/L (19-24); iSTAT Arterial Blood Gas pCO2 34 mmHg (35-46); iSTAT Arterial Blood Gas pH 7.35 (7.35-7.45); iSTAT Arterial Blood Gas pO2 151 mmHg (80-95); iSTAT Carbon Dioxide 20 mEq/l (24-31); iSTAT FiO2 40 %; iSTAT Site Art Line
[2019-08-24] MEDS ORDERED: INSULIN HUMAN NPH SC STA (12:34)
--- NOTE | 2019-08-24 14:01 | Pharmacy Report ---
Pharmacy Glycemic Short Note 2 - Date of Service August 24, 2019 - Glycemic Short BSG Results (Last 24 hours): 08/23/19 08/23/19 08/23/19 16:27 20:20 21:09 Glucose POC Glucose 104 H 86 64 L* POC Glucose (other) 08/23/19 08/24/19 08/24/19 21:27 02:09 02:39 Glucose 129 H POC Glucose 137 H 125 H POC Glucose (other) 08/24/19 06:09 Glucose POC Glucose POC Glucose (other) 195 H OUTPATIENT ANTIDIABETIC REGIMEN: * glipizide * A1c: 5.6% ASSESSMENT: Mr. Das's clinical status decompensated overnight. Requiring intubation and pressor support. BSGs today are all elevated. Potential causes for hyperglycemia include on-going solumedrol 40mg IV, intubation, pressors, ICU status. I spoke with the gauntlet pairer, resident physician, and nurse to coordinate care. Please see plan detailed below. PLAN FOR INPATIENT GLYCEMIC CONTROL: * Hold outpatient oral diabetes medications * Basal insulin * NPH 10u this afternoon for lunch BSG of 315mg/dL * Bolus insulin * NovoLog per scale Q4 while intubated * Goal Range: Low 120 mg/dL - High 150 mg/dL * Correction Factor: 20 mg/dL/unit * Nutritional / Prandial insulin per carb ratio of 1 unit per 7 grams CHO consumed * I have placed a pending Q4 order on the MAR: for BSG >/=300mg/dL OK to start an insulin infusion per protocol/glycemic consultation. In the critical care setting an insulin infusion is the standard of care.
[2019-08-24 15:10] LABS: BUN Creatinine Ratio 26.7 (10-20); Creatinine Clr Calc Pharmacy 32.5 ml/min; Est GFR (African American) 31.2; Est GFR (Non-African American) 26.9; Potassium 4.6 mmol/L (3.5-5.1)
[2019-08-24 15:11] LABS: Albumin Globulin Ratio 0.6 (0.9-2); Albumin Level 2.6 gm/dl (3.4-5.0); Bilirubin,Total 1.5 mg/dl (0.2-1); Calcium 7.9 mg/dl (8.5-10.1); Globulin 4.2 gm/dl (2.5-4.0); Phosphorus 4.2 mg/dl (2.5-4.9); Total Protein 6.8 gm/dl (6.4-8.2)
[2019-08-24] MEDS ORDERED: INSULIN PROTOCOL GOAL RANGE ONE (15:18)
[2019-08-24] MEDS ORDERED: SEVERE STRESS LEVEL ONE (15:18)
[2019-08-24 15:22] LABS: Beta-Hydroxybutyrate 7.33 mg/dl (0.2-2.81)
--- NOTE | 2019-08-24 15:29 | Communication Note ---
Date of Service: August 24, 2019 Recent labs for the patient showed a sodium of 129, creatinine went up to 2.29, blood sugar is 328, beta hydroxybutyrate acid 7.33 and LFTs in the thousands. Increasing LFTs is likely secondary to shock liver with the patient had because of prolonged hypotension when he came to the ICU. We will monitor. We will go down on Lasix drip to 10 mg/h. Patient will be started on insulin drip. Hyponatremia in a patient with CHF is poor prognostic sign. Hyponatremia secondary to use of Lasix on top of patient getting dobutamine and Levophed which is mixed in D5 water. We will monitor sodium.
[2019-08-24] MEDS: INSULIN REGULAR 250 UNITS in SODIUM CHLORIDE 0.9% 247.5 ML IV SCH ×2 (16:01→16:34)
[2019-08-24] MEDS ORDERED: NovoLIN-R BOLUS FROM BAG IV ONE (16:15)
[2019-08-24] MEDS: INSULIN ASPART 100 UNITS/ML 3 ML PEN SC SCH ×2 (17:03→20:22)
[2019-08-24 18:48] LABS: Albumin Level 2.5 gm/dl (3.4-5.0); Calcium 7.9 mg/dl (8.5-10.1); Creatinine Clr Calc Pharmacy 31.7 ml/min; Est GFR (African American) 30.2; Est GFR (Non-African American) 26.1
[2019-08-24 18:56] LABS: Albumin Globulin Ratio 0.6 (0.9-2); Bilirubin,Total 1.5 mg/dl (0.2-1); Globulin 4.3 gm/dl (2.5-4.0); Total Protein 6.8 gm/dl (6.4-8.2)
[2019-08-24] MEDS: FUROSEMIDE 40 MG in SYRINGE 0 ML IV SCH (20:21)
--- NOTE | 2019-08-24 20:36 | Billing Data ---
Date of Service August 23 2019 Coding Level of Care Code 33950 Subseq Hosp Care Lvl 2
--- NOTE | 2019-08-24 20:36 | Billing Data ---
Date of Service August 24, 2019 Coding Level of Care Code 66137 Subseq Hosp Care Lvl 2
[2019-08-24 22:43] LABS: Albumin Level 2.5 gm/dl (3.4-5.0); BUN Creatinine Ratio 26.2 (10-20); Creatinine Clr Calc Pharmacy 33.5 ml/min; Est GFR (African American) 32.4; Est GFR (Non-African American) 27.9; Potassium 3.5 mmol/L (3.5-5.1)
[2019-08-24 22:51] LABS: Albumin Globulin Ratio 0.6 (0.9-2); Bilirubin,Total 1.5 mg/dl (0.2-1); Globulin 4.3 gm/dl (2.5-4.0); Total Protein 6.8 gm/dl (6.4-8.2)
[2019-08-25] MEDS: ALBUT/IPRATROP 3MG/0.5MG NEB 3 ML VIAL NEB SCH ×7 (00:22→23:08)
[2019-08-25] MEDS: DOBUTamine / D5W 500 MG/250 ML BAG IV SCH ×4 (00:57→18:19)
[2019-08-25] MEDS ORDERED: POTASSIUM CHLORIDE 20 MEQ/15 ML UDC PO STA (01:24)
[2019-08-25 02:32] LABS: Basophils # (auto) 0.02 K/uL (0-0.2); Basophils % (auto) 0.1 %; Hemoglobin 12.1 g/dL (14.0-18.0); Immature Granulocytes # (auto) 0.08 K/uL (0.00-0.02); Immature Granulocytes % (auto) 0.5 %; Lymphocytes # (auto) 0.54 K/uL (1.2-3.4); Lymphocytes % (auto) 3.5 %; Mean Corpuscular Hemoglobin 31.2 pg (25-34); Mean Corpuscular Hgb Conc 34.6 g/dL (32-36); Mean Corpuscular Volume 90.2 fL (80-100); Mean Platelet Volume 10.6 fL (7.4-10.4); Monocytes # (auto) 0.27 K/uL (0.11-0.59); Monocytes % (auto) 1.7 %; Neutrophils # (auto) 14.56 K/uL (1.4-6.5); Neutrophils % (auto) 94.2 %; Platelet Count 493 K/uL (130-400); RDW Coefficient of Variation 17.5 % (11.5-14.5); RDW Standard Deviation 57.3 fL (36.4-46.3); Red Blood Count 3.88 M/uL (4.7-6.1); White Blood Count 15.47 K/uL (4.8-10.8)
[2019-08-25 02:50] LABS: Albumin Level 2.4 gm/dl (3.4-5.0); Aspartate Aminotransferase 880 U/L (15-37); BUN Creatinine Ratio 25.8 (10-20); Blood Urea Nitrogen 56 mg/dl (7-18); Calcium 7.4 mg/dl (8.5-10.1); Carbon Dioxide 27 mmol/L (21-32); Chloride 97 mmol/L (98-107); Creatinine Clr Calc Pharmacy 34.3 ml/min; Est GFR (African American) 33.3; Est GFR (Non-African American) 28.7; Glucose 113 mg/dl (70-99); Potassium 3.5 mmol/L (3.5-5.1); Sodium 132 mmol/L (136-145)
[2019-08-25 03:03] LABS: Alanine Aminotransferase 1126 U/L (12-78); Albumin Globulin Ratio 0.6 (0.9-2); Alkaline Phosphatase 74 U/L (45-117); Bilirubin,Total 1.5 mg/dl (0.2-1); Globulin 4.2 gm/dl (2.5-4.0); NT Pro B Type Natriuretic Pept > 35000 pg/ml (0-900); Total Protein 6.6 gm/dl (6.4-8.2)
[2019-08-25] MEDS ORDERED: POTASSIUM CHLORIDE / WTR 20 MEQ/100 ML PLCT IV ONE (03:39)
[2019-08-25] MEDS: propofoL 1,000 MG/100 ML VIAL IV SCH (03:47)
[2019-08-25] MEDS: fentaNYL DRIP 1,250 MCG/250 ML BAG IV SCH ×2 (05:02→07:09)
[2019-08-25 05:45] LABS: iSTAT Arterial Blood Gas HCO3 28 meg/L (19-24); iSTAT Arterial Blood Gas pCO2 39 mmHg (35-46); iSTAT Arterial Blood Gas pH 7.45 (7.35-7.45); iSTAT Arterial Blood Gas pO2 131 mmHg (80-95); iSTAT Carbon Dioxide 29 mEq/l (24-31); iSTAT FiO2 40 %; iSTAT Site Art Line
[2019-08-25] MEDS: VASOPRESSIN 20 UNITS in 0.9 % SODIUM CHLORIDE 100 ML IV SCH ×2 (07:04→19:14)
--- NOTE | 2019-08-25 07:07 | XRay Report ---
XR chest 1V portable CLINICAL HISTORY: Hypoxemic Respiratory failure congestive heart failure COMPARISON STUDY: 08/24/2019 FINDINGS: There is an endotracheal tube 5 cm above the jade. There is a right subclavian pacer/defi brillator. There is a nasogastric tube which passes into the stomach. There is a left internal jugula r central venous catheter which terminates at the level of superior vena cava. The heart remains enla rged. There are persistent but improving bilateral pulmonary airspace opacities. The findings favor i mproving pulmonary edema. IMPRESSION: 1. Persistent but improving bilateral pulmonary airspace opacities. The findings favor improving pulm onary edema ACT 112: Negative or not required by law. Electronically signed by: Juan M Landrum M.D. 08/25/2019 7:06 AM
[2019-08-25] MEDS: INSULIN ASPART 100 UNITS/ML 3 ML PEN SC SCH ×4 (08:24→20:31)
[2019-08-25] MEDS: methylPREDNISolone 40 MG in SYRINGE 0 ML IV SCH (08:27)
[2019-08-25] MEDS: DOXYCYCLINE HYCLATE 100 MG CAP PO SCH ×2 (08:27→20:32)
[2019-08-25] MEDS: OSELTAMIVIR PHOSPHATE SUSP 30 MG/5 ML UDP PO SCH ×2 (08:27→20:32)
[2019-08-25] MEDS: POTASSIUM CHLORIDE / WTR 20 MEQ/100 ML PLCT IV SCH ×2 (08:27→09:34)
[2019-08-25] MEDS: FUROSEMIDE 40 MG in SYRINGE 0 ML IV SCH ×2 (08:27→16:46)
[2019-08-25 08:34] LABS: Magnesium 1.9 mg/dl (1.8-2.4); Phosphorus 3.1 mg/dl (2.5-4.9)
[2019-08-25] MEDS: DEXTROSE 50% 50 ML SYRINGE IV PRN (09:40)
--- NOTE | 2019-08-25 11:22 | Critical Care Progress Note ---
Date of Service August 25, 2019 Assessment & Plan (1) Respiratory failure with hypoxia and hypercapnia: Reason Critically Ill: 73-year-old male admitted to the ICU with sepsis, hypotension, influenza A, hypoglycemia Neuro - [facility] ICU: Negative oriented to person, place, time, and situation No focal deficits on exam Cardiac - Systolic CHF/hypotensioncardiogenic and septic shock -Lactate elevated and patient tested positive for influenza A, see treatment of sepsis below echo from 06/18 showed EF 20 to 25% with significant akinesis of the anterior wall -Currently on Lasix and metolazone at home Patient had to be re intubated morning of 08/24 secondary to pulmonary edema secondary to volume overload Requiring pressor support secondary to cardiogenic shock Dobutamine, Vasopressin and levophed -We will continue ASA, holding metoprolol and metolazone in the setting of hypotension Was placed on lasix drip but switched over to lasix 40 mg IV BID last night -Monitor strict I's and O's and daily weights -Continue to monitor on telemetry Proximal V. tach/PAF/LBBBpatient s/p pacemaker with AICD Patient had a run of V tach overnight 08/22, 20+ beats, AICD did not trigger Nonsustained run, cardiology consulted and interrogated AICD which appears to be working appropriately -We will continue Xarelto, ASA -Holding Metoprolol in the setting of hypotension Respiratory - Respiratory distress/influenza A pneumoniapulmonary edema versus pneumonia versus COPD Patient to be extubated this morning patient's was also admitted for influenza A, now discharged and present at bedside patient was placed on prophylaxis Tamiflu and azithromycin following bronchitis with hemoptysis 2 days prior to admission -Influenza A positive on admission -CT chest was suggestive of multifocal bronchopneumonia and components of pulmonary edema history of 30 to 40 pack/year tobacco abuse quit decades ago -Was followed by pulmonology this fall during prior admission and was scheduled for PFTs outpatient -Reports he has been noncompliant with prescription for trilogy -Patient wheezing on exam, started on DuoNeb and IV Solu-Medrol -Currently maintaining oxygen saturations on 5L nasal cannula, but was given O2 overnight will continue to monitor as patient wakes up today and try to wean back to room air GI - Heart healthy diabetic diet, fluid restriction 1500 ml when able to eat Mild transaminitislikely secondary to hypotension/shock liver -Improved RENAL/LYTES - ROGELIO on CKDbaseline creatinine 1.6 with creatinine on admission 1.9 peaked at 2.35 now down to 2.25 Currently making good amount of urine with lasix 40 mg BID Diuresed approximately 1 liter net in last 24 hours -Maintain maps greater than 65 with pressors if necessary WIll consult nephrology today -Avoid nephrotoxins -Creatinine 2.2 down from 2.35 - Strict I's and O's Malagon in place ENDO - DM type II/hypoglycemialikely related to home med glipizide in the setting of influenza/sepsis pharmacy consulted, currently on insulin drip HEME - H&H stable, monitor routine CBCs ID - Sepsispatient positive for influenza A, blood cultures negative, lactate returned to baseline -UA negative for UTI -CT from 08/18 suggestive of bronchopneumonia FInishing course of tamiflu today On doxycycline for atypical coverage LINES/IV ACCESS - Peripheral IVs, central line right IJ DVT PROPHYLAXIS - SCDs, patient on Xarelto (2) Acute respiratory distress syndrome (ARDS): (3) Hyponatremia: (4) Acute on chronic renal failure: (5) Diarrhea: (6) Hypotension: (7) Sepsis: (8) Pneumonia: (9) Hypoglycemia: (10) CHF (congestive heart failure): Supervising Physician Co-Signing Physician Notes Dr. Choi was the resident-physician during care of patient. I separately evaluated patient for novak portions of the history and the exam. I was present during the critical portion of medical decision making, and I discussed the case with the resident. I generally agree with the findings and plan except for any additions/exceptions noted. Patient seen and examined at bedside. Still on dobutamine 15 MCG, vasopressin 0.04 units. Patient sedated with fentanyl at the time of examination. Rass -1. Patient following commands. MIP: -42. We will DC sedation. And give a trial of extubation. Patient has very high pulse pressure based on his arterial line. Arterial line was checked multiple times it is not under damped. Case was discussed with cardiology we will titrate his vasopressin inotrope based on his clinical status and systolic blood pressure rather than map. Continue with doxycycline. Chest x-ray from today showed significant improvement. Creatinine improving. Replace electrolytes as needed. Patient making good amount of urine. IV Lasix was changed to every 12 hours. Follow nephrology and cardiology recommendation. I have personally spent 60 minutes of critical care time in the direct management of this patient. This is a life/limb threatening event. This includes time spent evaluating patient, direct bedside care, chart review, placing orders, interpretation of diagnostic studies, discussion with consultants, patient, and/or family members regarding treatment decisions, as well as other required patient management activities. This time is exclusive of all separately billable procedures, and teaching time and separate from and in addition to any other critical care service time. Subjective Mr. Das is intubated this morning but is breathing adequately on CPAP setting of vent with peep of 5, plan on extubating this morning. Review of Systems Review of Systems: Unobtainable due to endotracheal tube Physical Exam Physical Exam: Constitutional: 73 year old man appearing stated age sleeping in bed with ET tube in place, no apparent distress moving good air Eyes: PERRLA bilaterally Respiratory: Breathing well on vent setting of CPAP with PEEP of 5, good air entry bilaterally, lungs with some rales right greater than left. Cardiovascular: Heart rate regular, systolic murmur present, 1 + edema bilateral lower extremities, Results & Data Vital Signs (Past 12 Hours) Vital Signs Temp Pulse Pulse Resp BP Pulse Ox 08/25/19 10:51 93 H 110/65 95 08/25/19 10:20 92 H 21 96 08/25/19 10:19 92 H 21 97 08/25/19 09:51 92 H 128/67 96 08/25/19 09:05 88 17 98 08/25/19 08:51 89 112/74 93 08/25/19 07:51 38.1 C H 108 H 102/56 L 92 08/25/19 07:34 110 H 102/59 L 98 08/25/19 07:20 99 H 16 94 08/25/19 04:51 108 H 133/68 97 08/25/19 03:52 105 H 16 98 08/25/19 03:51 36.8 C 103 H 120/89 97 08/25/19 02:51 104 H 131/68 98 08/25/19 01:51 86 124/63 98 08/25/19 01:15 103 H 16 98 08/25/19 00:51 105 H 98/58 L 97 Resident Activity Tracking Resident Involvement: Resident Care Provided Care Provided: Adult Hospital Medicine (1) CHF (congestive heart failure) Heart failure chronicity: acute on chronic Heart failure type: unspecified Qualified Code(s): I50.9 - Heart failure, unspecified (2) Sepsis Sepsis acute organ dysfunction status: unspecified Sepsis type: sepsis due to unspecified organism Qualified Code(s): A41.9 - Sepsis, unspecified organism (3) Pneumonia Laterality: left Lung location: unspecified part of lung Pneumonia type: due to unspecified organism Qualified Code(s): J18.9 - Pneumonia, unspecified organism
--- NOTE | 2019-08-25 11:33 | Cardiology Progress Note ---
Date of Service August 25, 2019 Assessment & Plan (1) CHF (congestive heart failure): He had an acute decompensation. Now improving with continued diuresis. Renal function stable. Agree with dobutamine. He will be handicapped by his compromised LV systolic function. (2) ICD (implantable cardioverter-defibrillator) in place: Normally functioning biventricular ICD. Poor pacing percentages. (3) Atrial fibrillation: Persistent. Continuing anticoagulation. Overall rates acceptable given his clinical condition and use of pressors/inotropes (4) Ischemic cardiomyopathy: He is currently on Lasix twice daily. Infusion was discontinued. (5) Left bundle branch block (LBBB): (6) Paroxysmal ventricular tachycardia: No definite recurrence. He has some artifact on telemetry at times. Subjective His main complaint is a dry mouth. Using CPAP. NO pain. Minimal sense of dyspnea. Review of Systems Review of Systems: per HPI Physical Exam Physical Exam: The patient is alert and answered questions appropriately. Using CPAP. HEENT: Pupils are equal and reactive to light and accommodation. Extraocular movements are intact. The sclerae are anicteric. Neuro: Cranial nerves intact Lungs: Mildly tachypneic. Course breath sounds bilaterally with reduced air movement. Expiratory wheezing. Cardiac: Heart demonstrates an irregular rate and rhythm. Normal S1 and S2. No murmurs on examination. Pulses: The patient has palpable radial pulses bilaterally that are equal in intensity Extremities: There was no evidence of hypoperfusion. There is no cyanosis or clubbing. There is no edema. Skin: I did not appreciate any rashes on examination today. Results & Data Vital Signs (Past 12 Hours) Vital Signs Temp Pulse Pulse Resp BP Pulse Ox 08/25/19 10:51 93 H 110/65 95 08/25/19 10:20 92 H 21 96 08/25/19 10:19 92 H 21 97 08/25/19 09:51 92 H 128/67 96 08/25/19 09:05 88 17 98 08/25/19 08:51 89 112/74 93 08/25/19 07:51 38.1 C H 108 H 102/56 L 92 08/25/19 07:34 110 H 102/59 L 98 08/25/19 07:20 99 H 16 94 08/25/19 04:51 108 H 133/68 97 08/25/19 03:52 105 H 16 98 08/25/19 03:51 36.8 C 103 H 120/89 97 08/25/19 02:51 104 H 131/68 98 08/25/19 01:51 86 124/63 98 08/25/19 01:15 103 H 16 98 08/25/19 00:51 105 H 98/58 L 97 Laboratory Results Abnormal Lab Results 08/24/19 08/24/19 08/24/19 12:14 12:23 12:27 WBC RBC Hgb Hct MCV MCH MCHC RDW Std Deviation RDW Coeff of Aliyah Plt Count MPV Immature Gran % (Auto) Neut % (Auto) Lymph % (Auto) [place] % (Auto) Eos % (Auto) Baso % (Auto) Immature Gran # (Auto) Neut # (Auto) Lymph # (Auto) [place] # (Auto) Eos # (Auto) Baso # (Auto) Sample Site Art Line POC pH 7.35 POC pCO2 34 L POC pO2 151 H POC HCO3 19 POC Total CO2 20 L POC Base Excess -7.0 POC ABG O2 Sat 99.0 H Augie Test NA O2 Delivery Device Ventilator POC O2 Rate 18 POC FiO2 40 PEEP 10 Sodium Potassium Chloride Carbon Dioxide Anion Gap BUN Creatinine Est Cr Clr Drug Dosing Est GFR ( Amer) Est GFR (Non-Af Amer) BUN/Creatinine Ratio Glucose POC Glucose (other) 315 H 315 H Calcium Phosphorus Magnesium Total Bilirubin Direct Bilirubin AST ALT Alkaline Phosphatase Troponin I NT-Pro-B Natriuret Pep Total Protein Albumin Globulin Albumin/Globulin Ratio Beta-Hydroxybutyric Acd Procalcitonin 08/24/19 08/24/19 08/24/19 14:22 17:02 18:03 WBC RBC Hgb Hct MCV MCH MCHC RDW Std Deviation RDW Coeff of Aliyah Plt Count MPV Immature Gran % (Auto) Neut % (Auto) Lymph % (Auto) [place] % (Auto) Eos % (Auto) Baso % (Auto) Immature Gran # (Auto) Neut # (Auto) Lymph # (Auto) [place] # (Auto) Eos # (Auto) Baso # (Auto) Sample Site POC pH POC pCO2 POC pO2 POC HCO3 POC Total CO2 POC Base Excess POC ABG O2 Sat Augie Test O2 Delivery Device POC O2 Rate POC FiO2 PEEP Sodium 129 L Potassium 4.6 Chloride 98 Carbon Dioxide 20 L Anion Gap 11.0 BUN 61 H Creatinine 2.29 H D Est Cr Clr Drug Dosing 32.5 Est GFR ( Amer) 31.2 Est GFR (Non-Af Amer) 26.9 BUN/Creatinine Ratio 26.7 H Glucose 328 H* POC Glucose (other) 328 H 310 H Calcium 7.9 L Phosphorus 4.2 Magnesium 2.0 Total Bilirubin 1.5 H D Direct Bilirubin AST 1241 H ALT 1040 H Alkaline Phosphatase 76 Troponin I NT-Pro-B Natriuret Pep Total Protein 6.8 Albumin 2.6 L Globulin 4.2 H Albumin/Globulin Ratio 0.6 L Beta-Hydroxybutyric Acd 7.33 H Procalcitonin 08/24/19 08/24/19 08/24/19 18:23 19:03 20:15 WBC RBC Hgb Hct MCV MCH MCHC RDW Std Deviation RDW Coeff of Aliyah Plt Count MPV Immature Gran % (Auto) Neut % (Auto) Lymph % (Auto) [place] % (Auto) Eos % (Auto) Baso % (Auto) Immature Gran # (Auto) Neut # (Auto) Lymph # (Auto) [place] # (Auto) Eos # (Auto) Baso # (Auto) Sample Site POC pH POC pCO2 POC pO2 POC HCO3 POC Total CO2 POC Base Excess POC ABG O2 Sat Augie Test O2 Delivery Device POC O2 Rate POC FiO2 PEEP Sodium 130 L Potassium 4.0 Chloride 97 L Carbon Dioxide 21 Anion Gap 12.0 H BUN 61 H Creatinine 2.35 H Est Cr Clr Drug Dosing 31.7 Est GFR ( Amer) 30.2 Est GFR (Non-Af Amer) 26.1 BUN/Creatinine Ratio 26.0 H Glucose 295 H POC Glucose (other) 271 H 231 H Calcium 7.9 L Phosphorus Magnesium Total Bilirubin 1.5 H Direct Bilirubin AST 1125 H ALT 1104 H Alkaline Phosphatase 76 Troponin I NT-Pro-B Natriuret Pep Total Protein 6.8 Albumin 2.5 L Globulin 4.3 H Albumin/Globulin Ratio 0.6 L Beta-Hydroxybutyric Acd Procalcitonin 08/24/19 08/24/19 08/24/19 21:03 22:08 22:19 WBC RBC Hgb Hct MCV MCH MCHC RDW Std Deviation RDW Coeff of Laiyah Plt Count MPV Immature Gran % (Auto) Neut % (Auto) Lymph % (Auto) [place] % (Auto) Eos % (Auto) Baso % (Auto) Immature Gran # (Auto) Neut # (Auto) Lymph # (Auto) [place] # (Auto) Eos # (Auto) Baso # (Auto) Sample Site POC pH POC pCO2 POC pO2 POC HCO3 POC Total CO2 POC Base Excess POC ABG O2 Sat Augie Test O2 Delivery Device POC O2 Rate POC FiO2 PEEP Sodium 131 L Potassium 3.5 Chloride 98 Carbon Dioxide 23 Anion Gap 10.0 BUN 58 H Creatinine 2.22 H Est Cr Clr Drug Dosing 33.5 Est GFR ( Amer) 32.4 Est GFR (Non-Af Amer) 27.9 BUN/Creatinine Ratio 26.2 H Glucose 172 H POC Glucose (other) 211 H 178 H Calcium 8.0 L Phosphorus Magnesium Total Bilirubin 1.5 H Direct Bilirubin AST 995 H ALT 1093 H Alkaline Phosphatase 78 Troponin I NT-Pro-B Natriuret Pep Total Protein 6.8 Albumin 2.5 L Globulin 4.3 H Albumin/Globulin Ratio 0.6 L Beta-Hydroxybutyric Acd Procalcitonin 08/24/19 08/25/19 08/25/19 23:11 00:04 01:04 WBC RBC Hgb Hct MCV MCH MCHC RDW Std Deviation RDW Coeff of Aliyah Plt Count MPV Immature Gran % (Auto) Neut % (Auto) Lymph % (Auto) [place] % (Auto) Eos % (Auto) Baso % (Auto) Immature Gran # (Auto) Neut # (Auto) Lymph # (Auto) [place] # (Auto) Eos # (Auto) Baso # (Auto) Sample Site POC pH POC pCO2 POC pO2 POC HCO3 POC Total CO2 POC Base Excess POC ABG O2 Sat Augie Test O2 Delivery Device POC O2 Rate POC FiO2 PEEP Sodium Potassium Chloride Carbon Dioxide Anion Gap BUN Creatinine Est Cr Clr Drug Dosing Est GFR ( Amer) Est GFR (Non-Af Amer) BUN/Creatinine Ratio Glucose POC Glucose (other) 148 H 135 H 124 H Calcium Phosphorus Magnesium Total Bilirubin Direct Bilirubin AST ALT Alkaline Phosphatase Troponin I NT-Pro-B Natriuret Pep Total Protein Albumin Globulin Albumin/Globulin Ratio Beta-Hydroxybutyric Acd Procalcitonin 08/25/19 08/25/19 08/25/19 02:04 02:23 02:23 WBC RBC Hgb Hct MCV MCH MCHC RDW Std Deviation RDW Coeff of Aliyah Plt Count MPV Immature Gran % (Auto) Neut % (Auto) Lymph % (Auto) [place] % (Auto) Eos % (Auto) Baso % (Auto) Immature Gran # (Auto) Neut # (Auto) Lymph # (Auto) [place] # (Auto) Eos # (Auto) Baso # (Auto) Sample Site POC pH POC pCO2 POC pO2 POC HCO3 POC Total CO2 POC Base Excess POC ABG O2 Sat Augie Test O2 Delivery Device POC O2 Rate POC FiO2 PEEP Sodium Cancelled 132 L Potassium Cancelled 3.5 Chloride Cancelled 97 L Carbon Dioxide Cancelled 27 Anion Gap Cancelled 8.0 BUN Cancelled 56 H Creatinine Cancelled 2.17 H Est Cr Clr Drug Dosing Cancelled 34.3 Est GFR ( Amer) Cancelled 33.3 Est GFR (Non-Af Amer) Cancelled 28.7 BUN/Creatinine Ratio Cancelled 25.8 H Glucose Cancelled 113 H POC Glucose (other) 119 H Calcium Cancelled 7.4 L Phosphorus Magnesium Total Bilirubin Cancelled 1.5 H Direct Bilirubin 1.0 H AST Cancelled 880 H ALT Cancelled 1126 H Alkaline Phosphatase Cancelled 74 Troponin I Cancelled 2.150 H* NT-Pro-B Natriuret Pep > 30223 H Total Protein Cancelled 6.6 Albumin Cancelled 2.4 L Globulin Cancelled 4.2 H Albumin/Globulin Ratio Cancelled 0.6 L Beta-Hydroxybutyric Acd Procalcitonin 08/25/19 08/25/19 08/25/19 02:23 02:23 04:09 WBC 15.47 H RBC 3.88 L Hgb 12.1 L Hct 35.0 L MCV 90.2 MCH 31.2 MCHC 34.6 RDW Std Deviation 57.3 H RDW Coeff of Aliyah 17.5 H Plt Count 493 H MPV 10.6 H Immature Gran % (Auto) 0.5 Neut % (Auto) 94.2 Lymph % (Auto) 3.5 [place] % (Auto) 1.7 Eos % (Auto) 0.0 Baso % (Auto) 0.1 Immature Gran # (Auto) 0.08 H Neut # (Auto) 14.56 H Lymph # (Auto) 0.54 L [place] # (Auto) 0.27 Eos # (Auto) 0.00 Baso # (Auto) 0.02 Sample Site POC pH POC pCO2 POC pO2 POC HCO3 POC Total CO2 POC Base Excess POC ABG O2 Sat Augie Test O2 Delivery Device POC O2 Rate POC FiO2 PEEP Sodium Potassium Chloride Carbon Dioxide Anion Gap BUN Creatinine Est Cr Clr Drug Dosing Est GFR ( Amer) Est GFR (Non-Af Amer) BUN/Creatinine Ratio Glucose POC Glucose (other) 110 H Calcium Phosphorus Magnesium Total Bilirubin Direct Bilirubin AST ALT Alkaline Phosphatase Troponin I NT-Pro-B Natriuret Pep Total Protein Albumin Globulin Albumin/Globulin Ratio Beta-Hydroxybutyric Acd Procalcitonin 23.32 H 08/25/19 08/25/19 08/25/19 05:32 06:04 07:14 WBC RBC Hgb Hct MCV MCH MCHC RDW Std Deviation RDW Coeff of Aliyah Plt Count MPV Immature Gran % (Auto) Neut % (Auto) Lymph % (Auto) [place] % (Auto) Eos % (Auto) Baso % (Auto) Immature Gran # (Auto) Neut # (Auto) Lymph # (Auto) [place] # (Auto) Eos # (Auto) Baso # (Auto) Sample Site Art Line POC pH 7.45 POC pCO2 39 POC pO2 131 H POC HCO3 28 H POC Total CO2 29 POC Base Excess 4.0 H POC ABG O2 Sat 99.0 H Augie Test NA O2 Delivery Device Ventilator POC O2 Rate 16 POC FiO2 40 PEEP 8 Sodium Potassium Chloride Carbon Dioxide Anion Gap BUN Creatinine Est Cr Clr Drug Dosing Est GFR ( Amer) Est GFR (Non-Af Amer) BUN/Creatinine Ratio Glucose POC Glucose (other) 105 H 101 H Calcium Phosphorus Magnesium Total Bilirubin Direct Bilirubin AST ALT Alkaline Phosphatase Troponin I NT-Pro-B Natriuret Pep Total Protein Albumin Globulin Albumin/Globulin Ratio Beta-Hydroxybutyric Acd Procalcitonin 08/25/19 08/25/19 08/25/19 07:55 08:08 09:35 WBC RBC Hgb Hct MCV MCH MCHC RDW Std Deviation RDW Coeff of Aliyah Plt Count MPV Immature Gran % (Auto) Neut % (Auto) Lymph % (Auto) [place] % (Auto) Eos % (Auto) Baso % (Auto) Immature Gran # (Auto) Neut # (Auto) Lymph # (Auto) [place] # (Auto) Eos # (Auto) Baso # (Auto) Sample Site POC pH POC pCO2 POC pO2 POC HCO3 POC Total CO2 POC Base Excess POC ABG O2 Sat Augie Test O2 Delivery Device POC O2 Rate POC FiO2 PEEP Sodium Potassium Chloride Carbon Dioxide Anion Gap BUN Creatinine Est Cr Clr Drug Dosing Est GFR ( Amer) Est GFR (Non-Af Amer) BUN/Creatinine Ratio Glucose POC Glucose (other) 100 H 84 Calcium Phosphorus 3.1 D Magnesium 1.9 Total Bilirubin Direct Bilirubin AST ALT Alkaline Phosphatase Troponin I NT-Pro-B Natriuret Pep Total Protein Albumin Globulin Albumin/Globulin Ratio Beta-Hydroxybutyric Acd Procalcitonin 08/25/19 10:00 WBC RBC Hgb Hct MCV MCH MCHC RDW Std Deviation RDW Coeff of Aliyah Plt Count MPV Immature Gran % (Auto) Neut % (Auto) Lymph % (Auto) [place] % (Auto) Eos % (Auto) Baso % (Auto) Immature Gran # (Auto) Neut # (Auto) Lymph # (Auto) [place] # (Auto) Eos # (Auto) Baso # (Auto) Sample Site POC pH POC pCO2 POC pO2 POC HCO3 POC Total CO2 POC Base Excess POC ABG O2 Sat Augie Test O2 Delivery Device POC O2 Rate POC FiO2 PEEP Sodium Potassium Chloride Carbon Dioxide Anion Gap BUN Creatinine Est Cr Clr Drug Dosing Est GFR ( Amer) Est GFR (Non-Af Amer) BUN/Creatinine Ratio Glucose POC Glucose (other) 168 H Calcium Phosphorus Magnesium Total Bilirubin Direct Bilirubin AST ALT Alkaline Phosphatase Troponin I NT-Pro-B Natriuret Pep Total Protein Albumin Globulin Albumin/Globulin Ratio Beta-Hydroxybutyric Acd Procalcitonin Diagnostic Findings Chest xray demonstrates improving pulmonary edema. PG Care Time/CCT Total # of Minutes Spent Total Time Spent with Patient: Total time spent is greater than 50% in coordination of care (as documented) at patient's floor/unit and/or counseling patient: (1) CHF (congestive heart failure) Heart failure chronicity: acute on chronic Heart failure type: unspecified Qualified Code(s): I50.9 - Heart failure, unspecified
--- NOTE | 2019-08-25 11:57 | Pharmacy Report ---
Pharmacy Glycemic Short Note 2 - Date of Service August 25, 2019 - Glycemic Short BSG Results (Last 24 hours): 08/24/19 08/24/19 08/24/19 12:23 12:27 14:22 Glucose 328 H* POC Glucose (other) 315 H 315 H 08/24/19 08/24/19 08/24/19 17:02 18:03 18:23 Glucose 295 H POC Glucose (other) 328 H 310 H 08/24/19 08/24/19 08/24/19 19:03 20:15 21:03 Glucose POC Glucose (other) 271 H 231 H 211 H 08/24/19 08/24/19 08/24/19 22:08 22:19 23:11 Glucose 172 H POC Glucose (other) 178 H 148 H 08/25/19 08/25/19 08/25/19 00:04 01:04 02:04 Glucose POC Glucose (other) 135 H 124 H 119 H 08/25/19 08/25/19 08/25/19 02:23 02:23 04:09 Glucose Cancelled 113 H POC Glucose (other) 110 H 08/25/19 08/25/19 08/25/19 06:04 07:14 08:08 Glucose POC Glucose (other) 105 H 101 H 100 H 08/25/19 08/25/19 08/25/19 09:35 10:00 11:12 Glucose POC Glucose (other) 84 168 H 155 H OUTPATIENT ANTIDIABETIC REGIMEN: * glipizide 5mg daily * A1c: 5.6% 03/28/19 ASSESSMENT: * Patient was initiated on IV insulin drip yesterday due to severe hyperglycemia in the setting of resp failure, infection and shock requiring pressor and inotropic support * This AM: patient has been extubated, RN was given instructions by shell mold bonding machine operator to attempt to wean norepinephrine, and then subsequent pressors if possible, a diet has been ordered * Insulin drip down to 1.4 units/hr at this time * Will continue with IV insulin drip at this time given inability to titrate off vasopressors at this time (norepi rate has gone up somewhat) and uncertain PO intake. SQ insulin absorption is more erratic in the setting of pressor support. * Consider transition to SQ when stressors stabilized and pressor needs decreased PLAN FOR INPATIENT GLYCEMIC CONTROL: * Hold outpatient oral diabetes medications * IV insulin infusion, goal range 110-180mg/dL, per protocol * Basal insulin * None at this time * Bolus insulin * Nutritional / Prandial insulin per carb ratio calculated by insulin rate change calculator * Reevaluate insulin needs with each step down in steroid dose
--- NOTE | 2019-08-25 12:06 | Nephrology Consultation ---
Date of Consultation August 25, 2019 Assessment & Plan (1) Acute on chronic renal failure: Acute kidney injury in the setting of septic shock with pneumonia and flu. Hyponatremia possibly with volume overload. Responded very well to diuretics and volume status improved significantly, sodium improved as well as renal function. --agree with current management, no other w/u indicated at thin time. Expect renal function to slowly improve --as pt getting close to even weight, consider changing diuretics to oral to keep slightly negative to even or even discontinue if pt remain significantly net negative, to avoid aggressive diuresis while pt recovers from ROGELIO. --daily renal panel Will follow Thank you for allowing me to participate in your patient's care. It was a pleasure to see Lavell. (2) Hyponatremia: (3) Chronic systolic congestive heart failure: (4) Hypotension: (5) Sepsis: History of Present Illness Reason for Consultation: Acute kidney injury and volume overload. Attending Physician: Nam Zimmerman, History of Present Illness Lavell Das Is a 73-year-old gentleman with past medical history significant for hypertension, diabetes, chronic congestive heart failure with EF 25-30% admitted to the hospital with septic shock in the setting a flu and multilobular pneumonia. Nephrology consult was requested for acute kidney injury and volume overload. Electronic medical records including labs and imaging study reviewed in detail during patient's visit. Lavell was initially admitted to the hospital on 08/20/2019 with progressive shortness of breath, hypotension and hypoglycemia. He was found to influenza as well as multilobular pneumonia causing shock. Was initially admitted to the ICU requiring pressor support. Eventually improved and step-down from ICU on 08/22/2019. However he was transferred back to ICU with worsening of respiratory status, ARDS and volume overload and required intubation. He also require 3 pressor as blood pressure stable persistently low. He was extubated this morning and was doing well on nasal cannula. Blood pressure was improving and pressor dose has been decreasing since this morning. Has baseline stage III CKD creatinine 1.5-1.7. On admission 08/28/2019, creatinine was 1.9 which slowly worsened to 2.4 on 08/24/2019. Since transferring to ICU 2 days ago his urine output dropped and he had significant pulmonary congestion. Started on Lasix drip with improvement in volume status and has been negative to to 2.5 L over last 24 hours. He still net positive 3 L. Lasix drip was discontinued this morning and currently on IV Lasix 40 twice a day. Continues to have good urine output creatinine slightly decreased to 2.1 Na has been slightly low. Allergies Allergy/AdvReac Type Severity Reaction Status Date / Time Asmkdrd-Bjn-Lhi Reductase Allergy Intermediate myalgia Verified 08/23/19 09:51 Inhibitor bee venom protein (honey bee) Allergy Unknown yellow Verified 08/20/19 18:24 jacket Penicillins Allergy Unknown Unknown Verified 08/23/19 09:51 levofloxacin AdvReac Intermediate nightmares Verified 08/20/19 18:24 Home Medications Home Medications Medication Instructions Recorded Confirmed Type furosemide 40 mg tablet 40 mg PO BID #180 tab 03/17/19 08/20/19 Rx metoprolol succinate 25 mg 25 mg PO DAILY #90 tab 03/17/19 08/20/19 Rx tablet,extended release 24 hr nitroglycerin 400 mcg/spray 1 sprays SL .COMPLEX PRN #4.9 gm 03/17/19 08/20/19 Rx translingual potassium chloride 20 mEq 20 meq PO DAILY #90 tab 03/17/19 08/20/19 Rx tablet,extended release aspirin [Aspir-81] 81 mg PO DAILY 06/11/19 08/20/19 History ferrous sulfate 325 mg (65 mg 325 mg PO DAILY 07/19/19 08/20/19 History iron) tablet sacubitril 24 mg-valsartan 26 mg 1 tab PO BID #180 tab 07/25/19 08/20/19 Rx tablet rivaroxaban 15 mg tablet 15 mg PO QPM 08/04/19 08/20/19 History cholecalciferol (vitamin D3) 5,000 5,000 units PO DAILY cap 08/09/19 08/20/19 History unit capsule fluticasone fur. 100 mcg-umeclid 1 puffs INH DAILY #28 ea 08/09/19 08/20/19 Rx 62.5 mcg-vilant 25 mcg inhalat.powder glipizide 5 mg tablet 5 mg PO DAILY #90 tab 08/12/19 08/20/19 Rx metolazone 2.5 mg tablet 2.5 mg PO DAILY tab 08/17/19 08/20/19 History azithromycin 500 mg tablet 500 mg PO DAILY 5 Days #5 tab 08/18/19 08/20/19 Rx oseltamivir 75 mg capsule 75 mg PO DAILY 14 Days #14 cap 08/19/19 08/20/19 Rx loperamide [Imodium A-D] 2 mg PO DIRECTED PRN 08/20/19 08/20/19 History Patient History Medical History Acute on chronic systolic congestive heart failure (Resolved) Anemia Arteriosclerotic cardiovascular disease (Acute) Atrial fibrillation (Chronic) Central hypothyroidism (Acute) Chronic kidney disease, stage 3 (moderate) (Chronic) Chronic systolic congestive heart failure (Acute) 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) Dyslipidemia (Acute) Gout (Acute) History of pacemaker Hypertension (Acute) ICD (implantable cardioverter-defibrillator) in place (Acute 09/02/11) Ischemic cardiomyopathy (Acute) Left bundle branch block (LBBB) (Acute) Multinodular goiter (Acute) Old myocardial infarction (Acute) Paroxysmal ventricular tachycardia (Acute) Pneumonia Solitary thyroid nodule (Acute) Vitamin D deficiency (Acute) Surgical History H/O hand surgery L index finger History of ankle surgery S/P foot surgery S/P knee surgery L patella fx repair Family History Father Myocardial infarction Family/Other Heart disease Hypertension Dyslipidemia Other Family history non-contributory Social History Preferred Language: [place] Communication Ability: Effective Visual Impairment: Limited Hearing Ability: Normal Personnel And Payroll Technician Required: No Beliefs That Will Affect Care: None marital status: Current Living Situation: Spouse current occupational status: retired Other Information That Helps Us Care for You: No Feels Safe at Home: Yes Safety Concerns: Feels Safe At This Time Smoking Status: Unknown if ever smoked Hx Alcohol Use: No Hx Substance Use: No Childhood Exposure to Second-Hand Smoke: Yes caffeine: No during the past year weight has: remained stable Dental Care, Regularly: Yes Physical Activity Frequency: Does not Exercise Seatbelt Use: always Sunscreen Use: Yes Review of Systems Review of Systems: All systems reviewed & are unremarkable except as noted in HPI & below Physical Exam Constitutional: WD/WN, vitals as above + ill appearing; no acute distress Eyes: PERRL, conjunctivae normal, anicteric sclerae ENMT: external ear and nose normal, oropharynx normal Ears: no hearing impairment Neck: trachea midline Respiratory: no respiratory distress and no cough Auscultation: + crackles; no wheezes Cardiovascular: RRR, no murmur, no edema Gastrointestinal (Abdomen): normal bowel sounds, soft, nontender, no hepatosplenomegaly Percussion/Palpation: abdomen nontender, no guarding and abdomen not rigid Musculoskeletal: Extremities: extremities normal to inspection Gait: normal gait Skin: no rashes, warm and dry Neurologic: moves all extremities and awake Psychiatric: A+Ox3, euthymic affect Results & Data Vital Signs (Past 12 Hours) Vital Signs Temp Pulse Pulse Resp BP Pulse Ox 08/25/19 10:51 93 H 110/65 95 08/25/19 10:20 92 H 21 96 08/25/19 10:19 92 H 21 97 08/25/19 09:51 92 H 128/67 96 08/25/19 09:05 88 17 98 08/25/19 08:51 89 112/74 93 08/25/19 07:51 38.1 C H 108 H 102/56 L 92 08/25/19 07:34 110 H 102/59 L 98 08/25/19 07:20 99 H 16 94 08/25/19 04:51 108 H 133/68 97 08/25/19 03:52 105 H 16 98 08/25/19 03:51 36.8 C 103 H 120/89 97 08/25/19 02:51 104 H 131/68 98 08/25/19 01:51 86 124/63 98 08/25/19 01:15 103 H 16 98 08/25/19 00:51 105 H 98/58 L 97 PG Care Time/CCT Total # of Minutes Spent Total Time Spent with Patient: Total time spent is greater than 50% in coordination of care (as documented) at patient's floor/unit and/or counseling patient: (1) Sepsis Sepsis acute organ dysfunction status: unspecified Sepsis type: sepsis due to unspecified organism Qualified Code(s): A41.9 - Sepsis, unspecified organism
[2019-08-25 12:48] LABS: Albumin Level 2.4 gm/dl (3.4-5.0); BUN Creatinine Ratio 23.6 (10-20); Calcium 7.8 mg/dl (8.5-10.1); Creatinine Clr Calc Pharmacy 32.5 ml/min; Est GFR (African American) 31.9; Est GFR (Non-African American) 27.5; Magnesium 1.8 mg/dl (1.8-2.4); Potassium 4.3 mmol/L (3.5-5.1)
[2019-08-25 12:55] LABS: Albumin Globulin Ratio 0.6 (0.9-2); Bilirubin,Total 1.6 mg/dl (0.2-1); Globulin 4.1 gm/dl (2.5-4.0); Phosphorus 2.6 mg/dl (2.5-4.9); Total Protein 6.5 gm/dl (6.4-8.2)
[2019-08-25] MEDS ORDERED: ONDANSETRON INJ 2 MG/ML 2 ML VIAL IV PRN (13:19)
--- NOTE | 2019-08-25 13:58 | XRay Report ---
XR KUB/Abdomen 1 view CLINICAL HISTORY: Small bowel obstruction COMPARISON STUDY: No previous studies for comparison. FINDINGS: There is sigmoid diverticulosis. There is a gas-filled colon down to the rectal level. Ther e is scattered colonic stool. IMPRESSION: Possible colonic ileus. No conventional radiographic evidence of small bowel obstruction . ACT 112: Negative or not required by law. Electronically signed by: Juan M Landrum M.D. 08/25/2019 1:57 PM
--- NOTE | 2019-08-25 15:47 | Hospitalist Progress Note ---
Date of Service August 25, 2019 Assessment & Plan (1) Influenza A: Mr. Das is a 73yo M with a PMHx of CHF, type 2 diabetes, pAfib, CKD, dyslipidemia, hypertension, left bundle branch block, paroxysmal V. tach, and gout who has been admitted for septic shock in the setting of influenza A. He has been readmitted to the ICU for acute respiratory failure. Acute respiratory failure 2/2 acute on chronic CHF with ARDS Worsened respiratory status following fluid overload, improving and anticipate extubation today Chest x-ray shows diffuse pulmonary edema, concern for ARDS. Currently improving. Propofol for sedation held lasix gtt converted to IV twice daily. may consider conversion to oral pending clinical course per nephrology Improving with diuresis, continue ICU care at this time Sepsis 2/2 influenza +/-superimposed pneumonia Flu a positive on admission CT chest shows multifocal bronchopneumonia with component of pulmonary edema Lactate 5.5, normalized 08/22 Continue Tamiflu Empiric Vanco/aztreonam narrowed to azithromycin/rocephin and subsequently Doxy Low threshold to broaden to Cefepime/Vanc vs Vanc/Zosyn given severity of illness Methylprednisolone 40 mg daily initiated for reduced air movement and wheezing, pulmonary continuing to follow. Systolic CHF, acute on chronic CHF Echo 06/18 showed EF 20-25% with anterior wall akinesis CT chest, CXR suggestive of fluid overload, BNP elevated. CXR today improving. Continue aspirin Hold metoprolol, metolazone for hypotension. Minimize IVF Currently requiring triple pressor support, dobutamine, norepi, vasopressin. Target map greater than 65mm V. tach/PAF/LBBB Status post pacemaker with AICD - ~25 beat of VTach during admission, AICD did not register/fire. Cardiology interrogated, feel AICD response was appropriate given the length and rate. 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 due to ETT DVT prophylaxis: Continue INVERFORM MACHINE OPERATOR Xarelto via OG Dispo: Continue ICU admission for pressor support and intubation. Anticipate extubation today. (2) Hyponatremia: (3) Acute on chronic renal failure: (4) Diarrhea: (5) Hypotension: (6) Pneumonia: (7) Hypoglycemia: (8) CHF (congestive heart failure): (9) Sulfonylurea poisoning: (10) Dyspnea: (11) Cough: (12) Anemia: (13) ICD (implantable cardioverter-defibrillator) in place: Supervising Physician Co-Signing Physician Notes I personally examined the patient and verified all novak points of history and exam, discussed case, and agree with decision making with Dr Carrillo. feeling better breathing better still needing pressors but seems to be improving vitals noted nad breathing unlabored no accessory muscles no pallor or icterus A/P: 1. septic shock 2nd flu A infection & multifocal pneumonia - now improving again 2. fluA infection - finish tamiflu, supportive care 3. b/l pneumonia -improving on current antibiotics 4. NSVT - ICD interrogated; functioning fine. 5. severe chronic systolic CHF - developed severe acute/chronic CHF last evening requiring BIPAP and lasix IV followed by intubation. It appears his respiratory distress came on rather suddenly. now improving again - follow closely 6. hyponatremia - multifactorial - low but acceptable. continue to follow 7. CAD - previous mild troponin elevation was likely myocardial demand ischemia in setting of septic shock. Troponin timmy to 3 following his intubation. I cannot exclude an acute ACS that contributed to his decompensation but appears more secondary to his critical condition. 8. a.fib - developed rapid a.fib last evening. Uncertain if the rapid a.fib was the primary bellman driver of his decompensation or simply the byproduct of his respiratory distress, acute/chronic systolic CHF, etc. Either way rates are improved relative to last night. Cont anticoagulation. 9. ROGELIO in setting of CKD stage 3 - ROGELIO had resolved, now Cr timmy to over 2 overnight in setting of critical illness. Likely multifactorial -- cardiorenal syndrome in setting of acute/chronic systolic CHF, shock, ATN, etc. Supportive care; serial BMPs. 10. acute hypoxic resp failure - multifactorial - pulmonary edema, +/- pneumonia, +/- fluA pneumonitis. otherwise as above Layne Lavell is seen at the bedside this morning. He is intubated, awake, and is able to open his eyes on command, squeeze fingers on command, and is currently on a breathing trial on CPAP. Anticipating extubation today. Able to gesture that the ETT is uncomfortable, but that he is not in other distress or pain. No chest pain, denies fever/chills. Review of Systems Review of Systems: Unobtainable due to endotracheal tube Physical Exam Physical Exam: General: Able to follow one and two-step commands. Awake, alert. HEENT: Atraumatic, normocephalic. Pulm: Soft crackles appreciated in the lung bases bilaterally. ETT in place. Breathing without respiratory distress on pressure assisted ventilation Cardiac: tachycardic. No murmurs/rubs appreciated. JVD appreciated about 1-2 cm above the clavicle. Abdominal: Softly distended, bowel sounds diminished. Nonrigid. Extremities: Distal PT pulses intact. Extremity cool, dry. Results & Data Vital Signs (Past 12 Hours) Vital Signs Temp Pulse Pulse Resp BP Pulse Ox 08/25/19 14:57 94 H 18 103/54 L 93 08/25/19 14:54 93 H 21 96/51 L 97 08/25/19 14:50 102 H 18 91 08/25/19 14:34 101 H 16 97/60 L 91 08/25/19 14:00 105 H 16 91 08/25/19 13:01 110 H 23 94/63 L 95 08/25/19 13:00 103 H 24 94 08/25/19 12:56 102 H 22 78/51 L 93 08/25/19 12:52 117 H 25 H 83/47 L 92 08/25/19 12:27 101 H 19 107/58 L 94 08/25/19 12:12 103 H 17 101/56 L 91 08/25/19 12:00 37.2 C 99 H 17 90 08/25/19 11:51 100 H 20 104/57 L 92 08/25/19 11:41 98 H 19 94/58 L 92 08/25/19 11:00 92 H 18 94 08/25/19 10:51 93 H 110/65 95 08/25/19 10:20 92 H 21 96 08/25/19 10:19 92 H 21 97 08/25/19 09:51 92 H 128/67 96 08/25/19 09:05 88 17 98 08/25/19 08:51 89 112/74 93 08/25/19 07:51 38.1 C H 108 H 102/56 L 92 08/25/19 07:34 110 H 102/59 L 98 08/25/19 07:20 99 H 16 94 08/25/19 04:51 108 H 133/68 97 08/25/19 03:52 105 H 16 98 08/25/19 03:51 36.8 C 103 H 120/89 97 Resident Activity Tracking Resident Involvement: Resident Care Provided Care Provided: Adult Hospital Medicine (1) Sulfonylurea poisoning Encounter type: initial encounter Injury intent: accidental or unintentional Qualified Code(s): T38.3X1A - Poisoning by insulin and oral hypoglycemic [antidiabetic] drugs, accidental (unintentional), initial encounter (2) CHF (congestive heart failure) Heart failure chronicity: acute on chronic Heart failure type: unspecified Qualified Code(s): I50.9 - Heart failure, unspecified (3) Pneumonia Laterality: left Lung location: unspecified part of lung Pneumonia type: due to unspecified organism Qualified Code(s): J18.9 - Pneumonia, unspecified organism
[2019-08-25] MEDS: NOREPINEPHRINE BIT INJ 16 MG in DEXTROSE 5% 500 ML IV SCH (18:19)
--- NOTE | 2019-08-25 18:29 | Billing Data ---
Date of Service August 25, 2019 Coding Level of Care Code 99966 Subseq Hosp Care Lvl 2
[2019-08-25 19:08] LABS: Albumin Level 2.3 gm/dl (3.4-5.0); BUN Creatinine Ratio 23.8 (10-20); Calcium 7.7 mg/dl (8.5-10.1); Est GFR (African American) 28.9; Est GFR (Non-African American) 24.9; Magnesium 1.8 mg/dl (1.8-2.4); Potassium 4.3 mmol/L (3.5-5.1)
[2019-08-25 19:16] LABS: Albumin Globulin Ratio 0.6 (0.9-2); Bilirubin,Total 1.5 mg/dl (0.2-1); Globulin 4.1 gm/dl (2.5-4.0); Phosphorus 2.6 mg/dl (2.5-4.9); Total Protein 6.4 gm/dl (6.4-8.2)
[2019-08-25] MEDS: INSULIN REGULAR 250 UNITS in SODIUM CHLORIDE 0.9% 247.5 ML IV SCH (20:29)
[2019-08-26] MEDS: DOBUTamine / D5W 500 MG/250 ML BAG IV SCH ×2 (00:32→06:30)
[2019-08-26 01:19] LABS: Albumin Level 2.4 gm/dl (3.4-5.0); BUN Creatinine Ratio 24.9 (10-20); Calcium 7.8 mg/dl (8.5-10.1); Creatinine Clr Calc Pharmacy 29.4 ml/min; Est GFR (African American) 28.2; Est GFR (Non-African American) 24.3; Potassium 4.1 mmol/L (3.5-5.1)
[2019-08-26 01:27] LABS: Albumin Globulin Ratio 0.6 (0.9-2); Bilirubin,Total 1.6 mg/dl (0.2-1); Globulin 4.1 gm/dl (2.5-4.0); Phosphorus 2.7 mg/dl (2.5-4.9); Total Protein 6.5 gm/dl (6.4-8.2)
[2019-08-26] MEDS: ALBUT/IPRATROP 3MG/0.5MG NEB 3 ML VIAL NEB SCH ×4 (03:18→22:02)
[2019-08-26 04:19] LABS: Basophils # (auto) 0.02 K/uL (0-0.2); Basophils % (auto) 0.1 %; Hematocrit (blood only) 33.2 % (42-52); Hemoglobin 10.9 g/dL (14.0-18.0); Immature Granulocytes # (auto) 0.29 K/uL (0.00-0.02); Immature Granulocytes % (auto) 1.5 %; Lymphocytes # (auto) 0.57 K/uL (1.2-3.4); Mean Corpuscular Hemoglobin 30.2 pg (25-34); Mean Corpuscular Hgb Conc 32.8 g/dL (32-36); Mean Platelet Volume 10.6 fL (7.4-10.4); Monocytes # (auto) 0.56 K/uL (0.11-0.59); Neutrophils # (auto) 17.44 K/uL (1.4-6.5); Neutrophils % (auto) 92.4 %; Platelet Count 540 K/uL (130-400); RDW Coefficient of Variation 17.4 % (11.5-14.5); RDW Standard Deviation 58.7 fL (36.4-46.3); Red Blood Count 3.61 M/uL (4.7-6.1); White Blood Count 18.88 K/uL (4.8-10.8)
[2019-08-26 04:30] LABS: INR 1.4 (0.9-1.1); Prothrombin Time 13.6 Seconds (9.0-12.0)
[2019-08-26 05:56] LABS: Estimated Average Glucose 126 mg/dl
[2019-08-26 06:38] LABS: Albumin Level 2.4 gm/dl (3.4-5.0); BUN Creatinine Ratio 25.2 (10-20); Calcium 7.9 mg/dl (8.5-10.1); Creatinine Clr Calc Pharmacy 29.8 ml/min; Est GFR (African American) 28.8; Est GFR (Non-African American) 24.8; Potassium 3.9 mmol/L (3.5-5.1)
[2019-08-26 06:41] LABS: Albumin Globulin Ratio 0.6 (0.9-2); Bilirubin,Total 1.7 mg/dl (0.2-1); Globulin 4.1 gm/dl (2.5-4.0); Phosphorus 2.7 mg/dl (2.5-4.9); Total Protein 6.5 gm/dl (6.4-8.2)
--- NOTE | 2019-08-26 07:06 | XRay Report ---
XR chest 1V portable CLINICAL HISTORY: Respiratory failure. Follow-up study. COMPARISON STUDY: 08/25/2019 FINDINGS: There is a right subclavian pacer/defibrillator. There is a left internal jugular central v enous catheter unchanged in position. There is been interval removal of the endotracheal tube and anthony ogastric tube. There are persistent but improving bilateral airspace opacities. The heart remains enl arged.[ IMPRESSION: Continued interval improvement in the bilateral pulmonary airspace opacities, a finding f avoring resolving pulmonary edema. Interval removal of the endotracheal tube and nasogastric tubes. ACT 112: Negative or not required by law. Electronically signed by: Juan M Landrum M.D. 08/26/2019 7:05 AM
--- NOTE | 2019-08-26 07:09 | Billing Data ---
Date of Service August 25, 2019 Coding Level of Care Code Critical Care 1st 30-74 mins Time Spent (min) 60
[2019-08-26] MEDS: VASOPRESSIN 20 UNITS in 0.9 % SODIUM CHLORIDE 100 ML IV SCH (07:40)
[2019-08-26] MEDS: DOXYCYCLINE HYCLATE 100 MG CAP PO SCH ×2 (08:31→20:25)
[2019-08-26] MEDS: FAMOTIDINE 20 MG in SYRINGE 3 ML IV SCH (08:33)
[2019-08-26] MEDS: INSULIN ASPART 100 UNITS/ML 3 ML PEN SC SCH ×3 (08:34→16:37)
[2019-08-26] MEDS: BUDESONIDE 0.25 MG/2 ML VIAL (PULMICORT) NEB SCH (08:41)
[2019-08-26] MEDS ORDERED: FUROSEMIDE 40 MG in SYRINGE 0 ML IV SCH (09:00)
--- NOTE | 2019-08-26 09:01 | Critical Care Progress Note ---
Date of Service August 26, 2019 Assessment & Plan (1) Respiratory failure with hypoxia and hypercapnia: Reason Critically Ill: 73-year-old male admitted to the ICU with sepsis, hypotension, influenza A, hypoglycemia Neuro - [facility] ICU: Negative oriented to person, place, time, and situation No focal deficits on exam Cardiac - Systolic CHF/hypotensioncardiogenic and septic shock echo from 06/18 showed EF 20 to 25% with significant akinesis of the anterior wall -Currently on Lasix and metolazone at home Patient had to be re intubated morning of 08/24 secondary to pulmonary edema secondary to volume overload Requiring pressor support secondary to combination of cardiogenic and d istributive shock initially on Dobutamine, Vasopressin and levophed. But able to cut the vasopressin Will try to wean off levophed and dobutamine, but lack of progress is concerning -We will continue ASA, holding metoprolol and metolazone in the setting of hypotension lasix now dropped -Monitor strict I's and O's and daily weights -Continue to monitor on telemetry Proximal V. tach/PAF/LBBBpatient s/p pacemaker with AICD Patient had a run of V tach overnight 08/22, 20+ beats, AICD did not trigger Nonsustained run, cardiology consulted and interrogated AICD which appears to be working appropriately -We will continue Xarelto, ASA -Holding Metoprolol in the setting of hypotension Respiratory - Respiratory distress/influenza A pneumoniapulmonary edema versus pneumonia versus COPD -Influenza A positive on admission -CT chest was suggestive of multifocal bronchopneumonia and components of pulmonary edema history of 30 to 40 pack/year tobacco abuse quit decades ago -Was followed by pulmonology this fall during prior admission and was scheduled for PFTs outpatient -Reports he has been noncompliant with prescription for trilogy Patient to be extubated 08/25 maintaining O2 sats on 3L nasal cannula currently, BiPap overnight. Breathing continues to be improved as patients fluid overload improves Tamiflu finished IV methylprednisone discontinued Will continue with budesonide -Patient wheezing on exam, started on DuoNeb and IV Solu-Medrol -Currently maintaining oxygen saturations on 5L nasal cannula, but was given O2 overnight will continue to monitor as patient wakes up today and try to wean back to room air GI - Heart healthy diabetic diet, fluid restriction 1500 ml when able to eat Transaminitis following hypotension appears to have peaked and will continue to improve. Will trend daily for improvement RENAL/LYTES - ROGELIO on CKDbaseline creatinine 1.6 3.5 L down since coming to ICU Appreciate nephro recs Will attempt to transition to home oral meds in the future. -Avoid nephrotoxins -Creatinine up to 2.45 likely secondary to overdiuresis Cut lasix to 40 mg daily - Strict I's and O's Malagon in place ENDO - DM type II/hypoglycemialikely related to home med glipizide in the setting of influenza/sepsis pharmacy consulted, currently on insulin drip HEME - Hemoglobin dropped today from 12 to 10.8 Will hold rivaroxaban for now ID - Sepsispatient positive for influenza A, blood cultures negative, lactate returned to baseline -UA negative for UTI -CT from 08/18 suggestive of bronchopneumonia Finished course of tamiflu On doxycycline for atypical coverage LINES/IV ACCESS - Peripheral IVs, central line right IJ, RIght radial A line in place DVT PROPHYLAXIS - SCDs, patient on Xarelto (2) Acute respiratory distress syndrome (ARDS): (3) Hyponatremia: (4) Acute on chronic renal failure: (5) Hypotension: (6) Pneumonia: (7) Hypoglycemia: (8) CHF (congestive heart failure): Supervising Physician Co-Signing Physician Notes Dr. Choi Was the resident-physician during care of patient. I separately evaluated patient for novak portions of the history and the exam. I was present during the critical portion of medical decision making, and I discussed the case with the resident. I generally agree with the findings and plan except for any additions/exceptions noted. Patient seen and examined at bedside. No acute distress, no adverse events overnight. Patient states that he is feeling better. Denies any shortness of breath, no chest pain, no dizziness, no headache, no nausea since yesterday. Patient had bowel movements overnight. Chest x-ray from today shows significant improvement in the alveolar opacities. Patient still on Levophed 0.05 MCG per KG per minute and dobutamine 15. On titrating down dobutamine to 10 blood pressure tach. Patient has been even balance in the last 24 hours. Patient's Lasix was changed from 40 IV twice daily to once daily. LFTs are trending down. Maintain potassium greater than 4, magnesium greater than 2, phosphorus greater than 3. Creatinine has worsened compared to yesterday. Patient was made to sit on a chair today during which he complained of dizziness which inclined us to think the patient has volume depleted. Bolus of 250 mL normal saline was ordered to which he systolic blood pressure improved to some extent. There was a drop in hemoglobin, repeat hemoglobin was stable. Patient is started on Xarelto. Patient got total of 5 days of Tamiflu. Will DC the respiratory isolation. Septic work-up was still negative. We will continue with the 5-day course of doxycycline and then stop it. If we are not able to get him off inotrope support in the next 24 to 48 hours we should think about LTAC for the patient. Patient to be given little bit of clear liquids and p.o. medication. I want him to be on full diet given the patient is on inotrope and vasopressor. I have personally spent 45 minutes of critical care time in the direct management of this patient. This is a life/limb threatening event. This includes time spent evaluating patient, direct bedside care, chart review, placing orders, interpretation of diagnostic studies, discussion with consultants, patient, and/or family members regarding treatment decisions, as well as other required patient management activities. This time is exclusive of all separately billable procedures, and teaching time and separate from and in addition to any other critical care service time. Subjective Mr. Das feeling much better, resting comfortably in bed. He tells me his breathing is feeling much improved, he denies chest pain, palpitations, or any other discomfort and is feeling well. He is continuing to make plenty of urine. Has no other concerns this morning. Review of Systems Review of Systems: All systems reviewed & are unremarkable except as noted in HPI & below Physical Exam Constitutional: well developed and well nourished; no acute distress Eyes: PERRL, conjunctivae normal, anicteric sclerae ENMT: external ear and nose normal, oropharynx normal Respiratory: normal respiratory effort, lungs clear to auscultation Auscultation: + wheezes (Mild wheezing globally); no crackles, no rales and no rhonchi Cardiovascular: Rate/Rhythm: regular rate and regular rhythm Heart Sounds: no click, no gallop, no murmur and no cardiac rub Extremities: + pedal edema (1+ bilaterally) Gastrointestinal (Abdomen): normal bowel sounds, soft, nontender, no hepatosplenomegaly Results & Data Vital Signs (Past 12 Hours) Vital Signs Temp Pulse Pulse Pulse Resp BP Pulse Ox 08/26/19 08:42 96 H 20 93 08/26/19 08:21 102 H 16 88/57 L 93 08/26/19 08:18 109 H 21 77/51 L 92 08/26/19 08:00 110 H 16 103/54 L 94 08/26/19 07:57 108 H 21 103/64 94 08/26/19 07:45 99 H 19 92 08/26/19 07:30 106 H 19 96 08/26/19 07:29 37.1 C 96 H 27 H 107/48 L 98 08/26/19 06:00 108 H 16 97 08/26/19 05:51 96 H 24 124/55 L 97 08/26/19 05:00 101 H 15 97 08/26/19 04:52 105 H 20 100/60 96 08/26/19 04:00 104 H 23 97 08/26/19 03:51 105 H 26 H 124/70 97 08/26/19 03:29 101 H 16 97 08/26/19 03:00 104 H 18 97 08/26/19 02:51 102 H 20 118/61 97 08/26/19 02:00 102 H 26 H 96 08/26/19 01:51 106 H 14 122/60 97 08/26/19 01:00 101 H 22 97 08/26/19 00:51 101 H 33 H 117/63 97 08/26/19 00:00 104 H 15 97 08/25/19 23:51 103 H 15 115/60 96 08/25/19 23:27 102 H 12 108/52 L 94 08/25/19 23:08 100 H 16 96 08/25/19 23:00 36.5 C 76 15 93 08/25/19 22:51 95 H 18 108/52 L 92 08/25/19 21:51 94 H 16 98/53 L 93 08/25/19 21:00 100 H 20 94 08/26/19 10:07 08/26/19 11:51 Critical Care Time Total Critical Care Time: 45 Resident Activity Tracking Resident Involvement: Resident Care Provided Care Provided: Adult Hospital Medicine (1) CHF (congestive heart failure) Heart failure chronicity: acute on chronic Heart failure type: unspecified Qualified Code(s): I50.9 - Heart failure, unspecified (2) Pneumonia Laterality: left Lung location: unspecified part of lung Pneumonia type: due to unspecified organism Qualified Code(s): J18.9 - Pneumonia, unspecified organism
--- NOTE | 2019-08-26 09:29 | Nephrology Progress Note ---
Date of Service August 26, 2019 Assessment & Plan (1) Acute on chronic renal failure: Acute kidney injury in the setting of septic shock with pneumonia and flu. Hyponatremia possibly with volume overload. Responded very well to diuretics and volume status improved significantly No significant improvement in renal function yet. -- suggest to continue on Lasix 40 mg IV BID, to keep slightly net negative --daily renal panel Will follow (2) Hyponatremia: (3) Chronic systolic congestive heart failure: (4) Hypotension: (5) Sepsis: Subjective Mr. Das seen and evaluated in ICU this am. Overall he is feeling much better. Still on pressor but dose has been low. Making urine, net even. O2 Sat decent on only 2 L NC. CXR showed improved pulmonary congestion. Has been having tremor specially with albuterol. Review of Systems Review of Systems: All systems reviewed & are unremarkable except as noted in HPI & below Physical Exam Constitutional: + ill appearing and cooperative; no acute distress Respiratory: normal respiratory effort; no respiratory distress Auscultation: + crackles; no wheezes Cardiovascular: RRR, no murmur, no edema Skin: no rashes, warm and dry Neurologic: awake; no focal motor deficits and not confused Motor/Sensory: + tremor Psychiatric: A+Ox3, euthymic affect Results & Data Vital Signs (Past 12 Hours) Vital Signs Temp Pulse Pulse Pulse Resp BP Pulse Ox 08/26/19 08:42 96 H 20 93 08/26/19 08:21 102 H 16 88/57 L 93 08/26/19 08:18 109 H 21 77/51 L 92 08/26/19 08:00 110 H 16 103/54 L 94 08/26/19 07:57 108 H 21 103/64 94 08/26/19 07:45 99 H 19 92 08/26/19 07:30 106 H 19 96 08/26/19 07:29 37.1 C 96 H 27 H 107/48 L 98 08/26/19 06:00 108 H 16 97 08/26/19 05:51 96 H 24 124/55 L 97 08/26/19 05:00 101 H 15 97 08/26/19 04:52 105 H 20 100/60 96 08/26/19 04:00 104 H 23 97 08/26/19 03:51 105 H 26 H 124/70 97 08/26/19 03:29 101 H 16 97 08/26/19 03:00 104 H 18 97 08/26/19 02:51 102 H 20 118/61 97 08/26/19 02:00 102 H 26 H 96 08/26/19 01:51 106 H 14 122/60 97 08/26/19 01:00 101 H 22 97 08/26/19 00:51 101 H 33 H 117/63 97 08/26/19 00:00 104 H 15 97 08/25/19 23:51 103 H 15 115/60 96 08/25/19 23:27 102 H 12 108/52 L 94 08/25/19 23:08 100 H 16 96 08/25/19 23:00 36.5 C 76 15 93 08/25/19 22:51 95 H 18 108/52 L 92 08/25/19 21:51 94 H 16 98/53 L 93 PG Care Time/CCT Total # of Minutes Spent Total Time Spent with Patient: Total time spent is greater than 50% in coordination of care (as documented) at patient's floor/unit and/or counseling patient: (1) Sepsis Sepsis acute organ dysfunction status: unspecified Sepsis type: sepsis due to unspecified organism Qualified Code(s): A41.9 - Sepsis, unspecified organism
--- NOTE | 2019-08-26 10:13 | Hospitalist Progress Note ---
Date of Service August 26, 2019 Assessment & Plan (1) Hypotension: (2) Elevated troponin: (3) Acute respiratory distress syndrome (ARDS): (4) Acute on chronic renal failure: (5) Hyponatremia: (6) Sepsis: (7) Pneumonia: (8) CHF (congestive heart failure): (9) Influenza A: Mr. Das is a 73yo M with a PMHx of CHF, type 2 diabetes, pAfib, CKD, dyslipidemia, hypertension, left bundle branch block, paroxysmal V. tach, and gout who has been admitted for septic shock in the setting of influenza A. He has been readmitted to the ICU for acute respiratory failure. Acute respiratory failure 2/2 acute on chronic CHF with ARDS Worsened respiratory status following fluid overload, required intubation, now extubated on 2L NC Chest x-ray showed diffuse pulmonary edema, concern for ARDS. Currently improving. lasix held given concern for overdiuresis Sepsis 2/2 influenza +/-superimposed pneumonia Flu A positive on admission CT chest shows multifocal bronchopneumonia with component of pulmonary edema Lactate 5.5, normalized 08/22 Finished course of Tamiflu Empiric Vanco/aztreonam narrowed to azithromycin/rocephin and subsequently Doxy for atypical coverage at this time Received Methylprednisolone 40 mg daily - dced Systolic CHF, acute on chronic CHF Echo 06/18 showed EF 20-25% with anterior wall akinesis CT chest, CXR suggestive of fluid overload, BNP elevated. CXR today improving. Continue aspirin Hold metoprolol, metolazone for hypotension Currently requiring pressor support, dobutamine, norepi - concern for cardiogenic shock - vasopressin dced today. V. tach/PAF/LBBB Status post pacemaker with AICD - ~25 beat of VTach during admission, AICD did not register/fire. Cardiology interrogated, feel AICD response was appropriate given the length and rate. Continue Xarelto Continue aspirin as above Metoprolol held as above Transaminitis, hyperbilirubinemia, stabilized Likely 2/2 shock liver in the setting of sepsis CMP daily ROGELIO on CKD - worsening Baseline creatinine 1.2 Creatinine increased to 2.45 Likely in the setting of hypotension/ATN vs. cardiorenal and now overdiuresis Lasix held Type 2 diabetes mellitus, presentation with hypoglycemia Initial presentation suspect hypoglycemia in the setting of acute illness in combination with [employer] glipizide ICU hyperglycemia protocol, Q4H checks while intubated FEN/GI: Clear liquids, fluid limit 1500cc; hyponatremia Na 130 likely in the setting of hypervolemia DVT prophylaxis: Continue Xarelto Dispo: Continue ICU admission for pressor support Plan to go home with family ultimately (10) ICD (implantable cardioverter-defibrillator) in place: (11) Atrial fibrillation: (12) Chronic kidney disease, stage 3 (moderate): (13) Diabetes mellitus type 2 with complications: (14) Dyslipidemia: (15) Gout: (16) Hypertension: (17) Left bundle branch block (LBBB): (18) Paroxysmal ventricular tachycardia: Supervising Physician Co-Signing Physician Notes I personally examined the patient and verified all novak points of history and exam, discussed case, and agree with decision making with Dr Gomez. burping some but otherwise feeling ok. would like to eat more. still on 2 pressors vitals noted nad breathing unlabored no accessory muscles no pallor or icterus A/P: 1. septic shock 2nd flu A infection & multifocal pneumonia - overall improving but frailty making it hard to wean pressors. continue ICU management 2. fluA infection - finished tamiflu, continue supportive care 3. b/l pneumonia -improving - continue current abx 4. NSVT - ICD interrogated; functioning fine. 5. severe chronic systolic CHF - developed severe acute/chronic CHF last evening requiring BIPAP and lasix IV followed by intubation. It appears his respiratory distress came on rather suddenly. now improving again - follow closely 6. hyponatremia - multifactorial - acceptable. continue to follow 7. CAD - previous mild troponin elevation was likely myocardial demand ischemia in setting of septic shock. Troponin timmy to 3 following his intubation. I cannot exclude an acute ACS that contributed to his decompensation but appears more secondary to his critical condition. 8. a.fib - rates reasonable, continue anticoagulation 9. ROGELIO in setting of CKD stage 3 - continue to follow volume status, continue supportive care, continue to follow 10. acute hypoxic resp failure - multifactorial - pulmonary edema, +/- pneumonia, +/- fluA pneumonitis. this is improving nicely otherwise as above Subjective This AM pt reports improvement in breathing. He reports having a small BM. When re-evaluated in the afternoon, he had some nausea. Per ICU team, continues to have low MAP and BP requiring norepi and dobutamine. Off Lasix for concern of overdiuresis and worsening renal function. Off methylpred. Remains on doxycycline and duonebs. Holding antihypertensives. Review of Systems Review of Systems: As per HPI Denies any fever, chills, headache, dizziness, cp, abdominal pain, vomiting, diarrhea Physical Exam Physical Exam: General: In NAD, resting in bed when examined Neuro: Alert and oriented x 4 Pulm: Mild wheezing appreciated, equal breath sounds bilaterally, on 2L NC no increased work of breathing CV: RRR, no m/r/g Abdomen:+BS, no TTP in all quadrants, non-distended LE: no calf TTP, no pretibial edema Results & Data Vital Signs (Past 12 Hours) Vital Signs Temp Pulse Pulse Pulse Resp BP Pulse Ox 08/26/19 09:03 96 H 22 89/53 L 92 08/26/19 08:54 74 21 83/60 L 91 08/26/19 08:42 96 H 20 93 08/26/19 08:30 105 H 17 93 08/26/19 08:21 102 H 16 88/57 L 93 08/26/19 08:18 109 H 21 77/51 L 92 08/26/19 08:00 110 H 16 103/54 L 94 08/26/19 07:57 108 H 21 103/64 94 08/26/19 07:45 99 H 19 92 08/26/19 07:30 106 H 19 96 08/26/19 07:29 37.1 C 96 H 27 H 107/48 L 98 08/26/19 06:00 108 H 16 97 08/26/19 05:51 96 H 24 124/55 L 97 08/26/19 05:00 101 H 15 97 08/26/19 04:52 105 H 20 100/60 96 08/26/19 04:00 104 H 23 97 08/26/19 03:51 105 H 26 H 124/70 97 08/26/19 03:29 101 H 16 97 08/26/19 03:00 104 H 18 97 08/26/19 02:51 102 H 20 118/61 97 08/26/19 02:00 102 H 26 H 96 08/26/19 01:51 106 H 14 122/60 97 08/26/19 01:00 101 H 22 97 08/26/19 00:51 101 H 33 H 117/63 97 08/26/19 00:00 104 H 15 97 08/25/19 23:51 103 H 15 115/60 96 08/25/19 23:27 102 H 12 108/52 L 94 08/25/19 23:08 100 H 16 96 08/25/19 23:00 36.5 C 76 15 93 08/25/19 22:51 95 H 18 108/52 L 92 Diagnostic Findings XR chest 1V portable CLINICAL HISTORY: Respiratory failure. Follow-up study. COMPARISON STUDY: 08/25/2019 FINDINGS: There is a right subclavian pacer/defibrillator. There is a left internal jugular central venous catheter unchanged in position. There is been interval removal of the endotracheal tube and nasogastric tube. There are persistent but improving bilateral airspace opacities. The heart remains enlarged.[ IMPRESSION: Continued interval improvement in the bilateral pulmonary airspace opacities, a finding favoring resolving pulmonary edema. Interval removal of the endotracheal tube and nasogastric tubes. Resident Activity Tracking Resident Involvement: Resident Care Provided Care Provided: Adult Hospital Medicine (1) CHF (congestive heart failure) Heart failure chronicity: acute on chronic Heart failure type: unspecified Qualified Code(s): I50.9 - Heart failure, unspecified (2) Sepsis Sepsis acute organ dysfunction status: unspecified Sepsis type: sepsis due to unspecified organism Qualified Code(s): A41.9 - Sepsis, unspecified organism (3) Pneumonia Laterality: left Lung location: unspecified part of lung Pneumonia type: due to unspecified organism Qualified Code(s): J18.9 - Pneumonia, unspecified organism
[2019-08-26] MEDS ORDERED: DOBUTamine / D5W 500 MG/250 ML BAG IV SCH (10:15)
[2019-08-26 10:17] LABS: Hematocrit (blood only) 32.4 % (42-52); Hemoglobin 10.8 g/dL (14.0-18.0)
--- NOTE | 2019-08-26 10:34 | Cardiology Progress Note ---
Date of Service August 26, 2019 Assessment & Plan (1) CHF (congestive heart failure): He had an acute decompensation. Clinically much improved. Chest x-ray suggests resolving pulmonary edema. Effect a good diuresis initially. Yesterday he was net neutral. He continues on IV Lasix. (2) ICD (implantable cardioverter-defibrillator) in place: Normally functioning biventricular ICD. Poor pacing percentages. (3) Atrial fibrillation: Persistent. Continuing anticoagulation. Overall rates acceptable given his clinical condition and use of pressors/inotropes (4) Ischemic cardiomyopathy: He is currently on Lasix twice daily. Infusion was discontinued. (5) Left bundle branch block (LBBB): (6) Paroxysmal ventricular tachycardia: No definite recurrence. He has some artifact on telemetry at times. (7) Elevated troponin: I think this is most likely demand ischemia. It timmy and the setting of his significant hypoxia and respiratory difficulties. An alternate possibility is an ischemic event which precipitated his decompensation. However, I think the absolute elevation in his markers and clinical scenario favors demand ischemia. I would not approach this from the standpoint of an acute coronary syndrome currently. (8) Hypotension: He continues to require some pressor support. I would expect him to generally improve his hemodynamics as his clinical condition improves. Hopefully will be able to wean him from his dobutamine and Levophed. I do not believe he is a good candidate for long-term inotrope occasions. He is certainly not a candidate for transplant. If he continue to have difficulty weaning inotropes perhaps a reduction in his diuretic dose would be helpful. Subjective This morning patient claims he feeling well. He did not report significant dy spnea. He has not report symptoms of chest or abdominal pain. He denies any dizziness or lightheadedness. He was somewhat frustrated at his continuing hospitalization. Review of Systems Review of Systems: Per HPI Physical Exam Physical Exam: The patient is alert and oriented. Mood and affect appeared normal. He answered all questions appropriately. HEENT: Pupils are equal and reactive to light and accommodation. Extraocular movements are intact. The sclerae are anicteric. Neuro: Cranial nerves intact Lungs: Occasional crackle on the left base. No expiratory wheezing. Good respiratory effort. Cardiac: Heart demonstrates an irregular rate and rhythm. Normal S1 and S2. No murmurs on examination. Pulses: The patient has palpable radial pulses bilaterally that are equal in intensity Extremities: There was no evidence of hypoperfusion. There is no cyanosis or clubbing. Skin: I did not appreciate any rashes on examination today. Results & Data Vital Signs (Past 12 Hours) Vital Signs Temp Pulse Pulse Pulse Resp BP Pulse Ox 08/26/19 09:03 96 H 22 89/53 L 92 08/26/19 08:54 74 21 83/60 L 91 08/26/19 08:42 96 H 20 93 08/26/19 08:30 105 H 17 93 08/26/19 08:21 102 H 16 88/57 L 93 08/26/19 08:18 109 H 21 77/51 L 92 08/26/19 08:00 110 H 16 103/54 L 94 08/26/19 07:57 108 H 21 103/64 94 08/26/19 07:45 99 H 19 92 08/26/19 07:30 106 H 19 96 08/26/19 07:29 37.1 C 96 H 27 H 107/48 L 98 08/26/19 06:00 108 H 16 97 08/26/19 05:51 96 H 24 124/55 L 97 08/26/19 05:00 101 H 15 97 08/26/19 04:52 105 H 20 100/60 96 08/26/19 04:00 104 H 23 97 08/26/19 03:51 105 H 26 H 124/70 97 08/26/19 03:29 101 H 16 97 08/26/19 03:00 104 H 18 97 08/26/19 02:51 102 H 20 118/61 97 08/26/19 02:00 102 H 26 H 96 08/26/19 01:51 106 H 14 122/60 97 08/26/19 01:00 101 H 22 97 08/26/19 00:51 101 H 33 H 117/63 97 08/26/19 00:00 104 H 15 97 08/25/19 23:51 103 H 15 115/60 96 08/25/19 23:27 102 H 12 108/52 L 94 08/25/19 23:08 100 H 16 96 08/25/19 23:00 36.5 C 76 15 93 08/25/19 22:51 95 H 18 108/52 L 92 Laboratory Results Abnormal Lab Results 08/25/19 08/25/19 08/25/19 09:35 10:00 11:12 WBC RBC Hgb Hct MCV MCH MCHC RDW Std Deviation RDW Coeff of Aliyah Plt Count MPV Immature Gran % (Auto) Neut % (Auto) Lymph % (Auto) Lewis % (Auto) Eos % (Auto) Baso % (Auto) Immature Gran # (Auto) Neut # (Auto) Lymph # (Auto) Lewis # (Auto) Eos # (Auto) Baso # (Auto) PT INR Sodium Potassium Chloride Carbon Dioxide Anion Gap BUN Creatinine Est Cr Clr Drug Dosing Est GFR ( Amer) Est GFR (Non-Af Amer) BUN/Creatinine Ratio Glucose POC Glucose (other) 84 168 H 155 H Estimat Average Glucose Hemoglobin A1c Calcium Phosphorus Magnesium Total Bilirubin AST ALT Alkaline Phosphatase Total Protein Albumin Globulin Albumin/Globulin Ratio Procalcitonin 08/25/19 08/25/19 08/25/19 11:44 12:00 13:02 WBC RBC Hgb Hct MCV MCH MCHC RDW Std Deviation RDW Coeff of Aliyah Plt Count MPV Immature Gran % (Auto) Neut % (Auto) Lymph % (Auto) Lewis % (Auto) Eos % (Auto) Baso % (Auto) Immature Gran # (Auto) Neut # (Auto) Lymph # (Auto) Lewis # (Auto) Eos # (Auto) Baso # (Auto) PT INR Sodium 131 L Potassium 4.3 D Chloride 99 Carbon Dioxide 24 Anion Gap 9.0 BUN 53 H Creatinine 2.25 H Est Cr Clr Drug Dosing 32.5 Est GFR ( Amer) 31.9 Est GFR (Non-Af Amer) 27.5 BUN/Creatinine Ratio 23.6 H Glucose 155 H POC Glucose (other) 153 H 158 H Estimat Average Glucose Hemoglobin A1c Calcium 7.8 L Phosphorus 2.6 Magnesium 1.8 Total Bilirubin 1.6 H AST 726 H ALT 1030 H Alkaline Phosphatase 70 Total Protein 6.5 Albumin 2.4 L Globulin 4.1 H Albumin/Globulin Ratio 0.6 L Procalcitonin 08/25/19 08/25/19 08/25/19 14:51 18:36 19:08 WBC RBC Hgb Hct MCV MCH MCHC RDW Std Deviation RDW Coeff of Aliyah Plt Count MPV Immature Gran % (Auto) Neut % (Auto) Lymph % (Auto) Lewis % (Auto) Eos % (Auto) Baso % (Auto) Immature Gran # (Auto) Neut # (Auto) Lymph # (Auto) Lewis # (Auto) Eos # (Auto) Baso # (Auto) PT INR Sodium 131 L Potassium 4.3 Chloride 98 Carbon Dioxide 24 Anion Gap 9.0 BUN 58 H Creatinine 2.44 H Est Cr Clr Drug Dosing 30.0 Est GFR ( Amer) 28.9 Est GFR (Non-Af Amer) 24.9 BUN/Creatinine Ratio 23.8 H Glucose 188 H POC Glucose (other) 160 H 183 H Estimat Average Glucose Hemoglobin A1c Calcium 7.7 L Phosphorus 2.6 Magnesium 1.8 Total Bilirubin 1.5 H AST 638 H ALT 1032 H Alkaline Phosphatase 66 Total Protein 6.4 Albumin 2.3 L Globulin 4.1 H Albumin/Globulin Ratio 0.6 L Procalcitonin 08/25/19 08/25/19 08/25/19 20:08 21:05 22:04 WBC RBC Hgb Hct MCV MCH MCHC RDW Std Deviation RDW Coeff of Aliyah Plt Count MPV Immature Gran % (Auto) Neut % (Auto) Lymph % (Auto) Lewis % (Auto) Eos % (Auto) Baso % (Auto) Immature Gran # (Auto) Neut # (Auto) Lymph # (Auto) Lewis # (Auto) Eos # (Auto) Baso # (Auto) PT INR Sodium Potassium Chloride Carbon Dioxide Anion Gap BUN Creatinine Est Cr Clr Drug Dosing Est GFR ( Amer) Est GFR (Non-Af Amer) BUN/Creatinine Ratio Glucose POC Glucose (other) 205 H 211 H 211 H Estimat Average Glucose Hemoglobin A1c Calcium Phosphorus Magnesium Total Bilirubin AST ALT Alkaline Phosphatase Total Protein Albumin Globulin Albumin/Globulin Ratio Procalcitonin 08/25/19 08/26/19 08/26/19 23:11 00:18 00:59 WBC RBC Hgb Hct MCV MCH MCHC RDW Std Deviation RDW Coeff of Aliyah Plt Count MPV Immature Gran % (Auto) Neut % (Auto) Lymph % (Auto) Lewis % (Auto) Eos % (Auto) Baso % (Auto) Immature Gran # (Auto) Neut # (Auto) Lymph # (Auto) Lewis # (Auto) Eos # (Auto) Baso # (Auto) PT INR Sodium 130 L Potassium 4.1 Chloride 98 Carbon Dioxide 25 Anion Gap 7.0 BUN 62 H Creatinine 2.49 H Est Cr Clr Drug Dosing 29.4 Est GFR ( Amer) 28.2 Est GFR (Non-Af Amer) 24.3 BUN/Creatinine Ratio 24.9 H Glucose 203 H POC Glucose (other) 200 H 171 H Estimat Average Glucose Hemoglobin A1c Calcium 7.8 L Phosphorus 2.7 Magnesium 2.0 Total Bilirubin 1.6 H AST 532 H ALT 1040 H Alkaline Phosphatase 68 Total Protein 6.5 Albumin 2.4 L Globulin 4.1 H Albumin/Globulin Ratio 0.6 L Procalcitonin 08/26/19 08/26/19 08/26/19 02:58 03:56 03:56 WBC 18.88 H RBC 3.61 L Hgb 10.9 L Hct 33.2 L MCV 92.0 MCH 30.2 MCHC 32.8 RDW Std Deviation 58.7 H RDW Coeff of Aliyah 17.4 H Plt Count 540 H MPV 10.6 H Immature Gran % (Auto) 1.5 Neut % (Auto) 92.4 Lymph % (Auto) 3.0 Lewis % (Auto) 3.0 Eos % (Auto) 0.0 Baso % (Auto) 0.1 Immature Gran # (Auto) 0.29 H Neut # (Auto) 17.44 H Lymph # (Auto) 0.57 L Lewis # (Auto) 0.56 Eos # (Auto) 0.00 Baso # (Auto) 0.02 PT INR Sodium Potassium Chloride Carbon Dioxide Anion Gap BUN Creatinine Est Cr Clr Drug Dosing Est GFR ( Amer) Est GFR (Non-Af Amer) BUN/Creatinine Ratio Glucose POC Glucose (other) 155 H Estimat Average Glucose 126 Hemoglobin A1c 6.0 H Calcium Phosphorus Magnesium Total Bilirubin AST ALT Alkaline Phosphatase Total Protein Albumin Globulin Albumin/Globulin Ratio Procalcitonin 08/26/19 08/26/19 08/26/19 03:56 03:56 05:03 WBC RBC Hgb Hct MCV MCH MCHC RDW Std Deviation RDW Coeff of Aliyah Plt Count MPV Immature Gran % (Auto) Neut % (Auto) Lymph % (Auto) Lewis % (Auto) Eos % (Auto) Baso % (Auto) Immature Gran # (Auto) Neut # (Auto) Lymph # (Auto) Lewis # (Auto) Eos # (Auto) Baso # (Auto) PT 13.6 H INR 1.4 H Sodium Potassium Chloride Carbon Dioxide Anion Gap BUN Creatinine Est Cr Clr Drug Dosing Est GFR ( Amer) Est GFR (Non-Af Amer) BUN/Creatinine Ratio Glucose POC Glucose (other) 180 H Estimat Average Glucose Hemoglobin A1c Calcium Phosphorus Magnesium Total Bilirubin AST ALT Alkaline Phosphatase Total Protein Albumin Globulin Albumin/Globulin Ratio Procalcitonin 16.15 H 08/26/19 08/26/19 08/26/19 05:49 06:57 09:13 WBC RBC Hgb Hct MCV MCH MCHC RDW Std Deviation RDW Coeff of Aliyah Plt Count MPV Immature Gran % (Auto) Neut % (Auto) Lymph % (Auto) Lewis % (Auto) Eos % (Auto) Baso % (Auto) Immature Gran # (Auto) Neut # (Auto) Lymph # (Auto) Lewis # (Auto) Eos # (Auto) Baso # (Auto) PT INR Sodium 130 L Potassium 3.9 Chloride 97 L Carbon Dioxide 24 Anion Gap 9.0 BUN 62 H Creatinine 2.45 H Est Cr Clr Drug Dosing 29.8 Est GFR ( Amer) 28.8 Est GFR (Non-Af Amer) 24.8 BUN/Creatinine Ratio 25.2 H Glucose 181 H POC Glucose (other) 161 H 170 H Estimat Average Glucose Hemoglobin A1c Calcium 7.9 L Phosphorus 2.7 Magnesium 2.0 Total Bilirubin 1.7 H AST 409 H ALT 968 H Alkaline Phosphatase 65 Total Protein 6.5 Albumin 2.4 L Globulin 4.1 H Albumin/Globulin Ratio 0.6 L Procalcitonin 08/26/19 10:07 WBC RBC Hgb 10.8 L Hct 32.4 L MCV MCH MCHC RDW Std Deviation RDW Coeff of Aliyah Plt Count MPV Immature Gran % (Auto) Neut % (Auto) Lymph % (Auto) Lewis % (Auto) Eos % (Auto) Baso % (Auto) Immature Gran # (Auto) Neut # (Auto) Lymph # (Auto) Lewis # (Auto) Eos # (Auto) Baso # (Auto) PT INR Sodium Potassium Chloride Carbon Dioxide Anion Gap BUN Creatinine Est Cr Clr Drug Dosing Est GFR ( Amer) Est GFR (Non-Af Amer) BUN/Creatinine Ratio Glucose POC Glucose (other) Estimat Average Glucose Hemoglobin A1c Calcium Phosphorus Magnesium Total Bilirubin AST ALT Alkaline Phosphatase Total Protein Albumin Globulin Albumin/Globulin Ratio Procalcitonin Diagnostic Findings Chest x-ray demonstrates improvement in pulmonary edema (1) CHF (congestive heart failure) Heart failure chronicity: acute on chronic Heart failure type: unspecified Qualified Code(s): I50.9 - Heart failure, unspecified
--- NOTE | 2019-08-26 11:34 | Pharmacy Report ---
Pharmacy Glycemic Short Note 2 - Date of Service August 26, 2019 - Glycemic Short BSG Results (Last 24 hours): 08/25/19 08/25/19 08/25/19 11:12 11:44 12:00 Glucose 155 H POC Glucose POC Glucose (other) 155 H 153 H 08/25/19 08/25/19 08/25/19 13:02 14:51 16:55 Glucose POC Glucose Cancelled POC Glucose (other) 158 H 160 H 08/25/19 08/25/19 08/25/19 16:55 18:36 19:08 Glucose 188 H POC Glucose POC Glucose (other) 141 H 183 H 08/25/19 08/25/19 08/25/19 20:08 21:05 22:04 Glucose POC Glucose POC Glucose (other) 205 H 211 H 211 H 08/25/19 08/26/19 08/26/19 23:11 00:18 00:59 Glucose 203 H POC Glucose POC Glucose (other) 200 H 171 H 08/26/19 08/26/19 08/26/19 02:58 05:03 05:49 Glucose 181 H POC Glucose POC Glucose (other) 155 H 180 H 08/26/19 08/26/19 06:57 09:13 Glucose POC Glucose POC Glucose (other) 161 H 170 H OUTPATIENT ANTIDIABETIC REGIMEN: * glipizide 5mg daily * A1c: 5.6% 03/28/19 ASSESSMENT: 08/26 * Insulin drip continues this AM, running at a stable rate of 2.4 units/hr with BSGs in mid-100s * Pressor/inotrope support continues at this time in the form of norepi + dobutamine (vaso has been weaned off) * Clear liquid diet ordered, however pt not tolerating PO well * Given ongoing pressor support and stable BSGs and insulin infusion rates - this therapy would be best suited for glycemic control at this time 08/25 * Patient was initiated on IV insulin drip yesterday due to severe hyperglycemia in the setting of resp failure, infection and shock requiring pressor and inotropic support * This AM: patient has been extubated, RN was given instructions by billing clerk to attempt to wean norepinephrine, and then subsequent pressors if possible, a diet has been ordered * Insulin drip down to 1.4 units/hr at this time * Will continue with IV insulin drip at this time given inability to titrate off vasopressors at this time (norepi rate has gone up somewhat) and uncertain PO intake. SQ insulin absorption is more erratic in the setting of pressor support. * Consider transition to SQ when stressors stabilized and pressor needs decreased PLAN FOR INPATIENT GLYCEMIC CONTROL: * Hold outpatient oral diabetes medications * IV insulin infusion, goal range 110-180mg/dL, per protocol * Basal insulin * None at this time * Bolus insulin * Nutritional / Prandial insulin per carb ratio calculated by insulin rate change calculator * Reevaluate insulin needs with each step down in steroid dose
[2019-08-26] MEDS: DEXTROSE 5% IV SCH ×2 (11:38→23:20)
[2019-08-26] MEDS: DOBUTAMINE HCL IV SCH ×2 (11:38→23:20)
[2019-08-26] MEDS: NOREPINEPHRINE BIT INJ 16 MG in DEXTROSE 5% 500 ML IV SCH ×2 (12:10→12:21)
[2019-08-26 12:37] LABS: Albumin Level 2.3 gm/dl (3.4-5.0); Calcium 8.1 mg/dl (8.5-10.1); Creatinine Clr Calc Pharmacy 28.7 ml/min; Est GFR (African American) 27.4; Est GFR (Non-African American) 23.6; Magnesium 2.1 mg/dl (1.8-2.4); Potassium 3.9 mmol/L (3.5-5.1)
[2019-08-26 12:39] LABS: Albumin Globulin Ratio 0.6 (0.9-2); Bilirubin,Total 1.7 mg/dl (0.2-1); Globulin 4.1 gm/dl (2.5-4.0); Total Protein 6.4 gm/dl (6.4-8.2)
[2019-08-26] MEDS ORDERED: SODIUM CHLORIDE 0.9% 1000ML 250 ML IV ONE (13:35)
--- NOTE | 2019-08-26 16:13 | Billing Data ---
Date of Service August 26, 2019 Coding Level of Care Code 59366 Subseq Hosp Care Lvl 2
--- NOTE | 2019-08-26 17:39 | Billing Data ---
Date of Service August 26, 2019 Coding Level of Care Code Critical Care 1st 30-74 mins Time Spent (min) 45
[2019-08-26 18:48] LABS: Albumin Level 2.2 gm/dl (3.4-5.0); BUN Creatinine Ratio 26.5 (10-20); Calcium 7.9 mg/dl (8.5-10.1); Creatinine Clr Calc Pharmacy 29.6 ml/min; Est GFR (African American) 28.5; Est GFR (Non-African American) 24.6; Potassium 3.9 mmol/L (3.5-5.1)
[2019-08-26 18:50] LABS: Albumin Globulin Ratio 0.6 (0.9-2); Bilirubin,Total 1.6 mg/dl (0.2-1); Total Protein 6.2 gm/dl (6.4-8.2)
[2019-08-27] MEDS: INSULIN ASPART 100 UNITS/ML 3 ML PEN SC SCH ×5 (00:40→20:50)
[2019-08-27 00:49] LABS: Albumin Level 2.3 gm/dl (3.4-5.0); BUN Creatinine Ratio 26.1 (10-20); Calcium 8.3 mg/dl (8.5-10.1); Creatinine Clr Calc Pharmacy 29.3 ml/min; Est GFR (African American) 28.1; Est GFR (Non-African American) 24.2; Magnesium 2.1 mg/dl (1.8-2.4); Potassium 3.9 mmol/L (3.5-5.1)
[2019-08-27 00:52] LABS: Albumin Globulin Ratio 0.6 (0.9-2); Bilirubin,Total 1.7 mg/dl (0.2-1); Globulin 3.9 gm/dl (2.5-4.0); Phosphorus 3.3 mg/dl (2.5-4.9); Total Protein 6.2 gm/dl (6.4-8.2)
[2019-08-27 04:35] LABS: INR 1.5 (0.9-1.1); Prothrombin Time 14.5 Seconds (9.0-12.0)
[2019-08-27 05:23] LABS: Hematocrit (blood only) 31.7 % (42-52); Hemoglobin 10.4 g/dL (14.0-18.0); Mean Corpuscular Hemoglobin 30.1 pg (25-34); Mean Corpuscular Hgb Conc 32.8 g/dL (32-36); Mean Corpuscular Volume 91.9 fL (80-100); Mean Platelet Volume 10.7 fL (7.4-10.4); Nucleated RBC # (auto) 0.02 K/uL (0-0); Nucleated RBC % (auto) 0.1 %; Platelet Count 331 K/uL (130-400); RDW Coefficient of Variation 17.4 % (11.5-14.5); RDW Standard Deviation 58.5 fL (36.4-46.3); Red Blood Count 3.45 M/uL (4.7-6.1)
[2019-08-27 05:53] LABS: Albumin Level 2.3 gm/dl (3.4-5.0); BUN Creatinine Ratio 26.6 (10-20); Basophils # (auto) 0.03 K/uL (0-0.2); Basophils % (auto) 0.2 %; Calcium 8.2 mg/dl (8.5-10.1); Creatinine Clr Calc Pharmacy 30.5 ml/min; Eosinophils # (auto) 0.02 K/uL (0-0.5); Eosinophils % (auto) 0.1 %; Est GFR (African American) 29.3; Est GFR (Non-African American) 25.3; Immature Granulocytes # (auto) 1.11 K/uL (0.00-0.02); Immature Granulocytes % (auto) 6.2 %; Lymphocytes # (auto) 0.63 K/uL (1.2-3.4); Lymphocytes % (auto) 3.5 %; Magnesium 2.1 mg/dl (1.8-2.4); Monocytes # (auto) 0.81 K/uL (0.11-0.59); Monocytes % (auto) 4.6 %; Neutrophils % (auto) 85.4 %; Potassium 3.9 mmol/L (3.5-5.1)
[2019-08-27 05:56] LABS: Albumin Globulin Ratio 0.6 (0.9-2); Bilirubin,Total 1.8 mg/dl (0.2-1); Globulin 3.8 gm/dl (2.5-4.0); Phosphorus 3.3 mg/dl (2.5-4.9); Total Protein 6.1 gm/dl (6.4-8.2)
[2019-08-27] MEDS: INSULIN REGULAR 250 UNITS in SODIUM CHLORIDE 0.9% 247.5 ML IV SCH (06:50)
--- NOTE | 2019-08-27 06:51 | XRay Report ---
XR chest 1V portable CLINICAL HISTORY: f/u COMPARISON STUDY: Chest radiograph August 26, 2019. FINDINGS: A right subclavian biventricular pacer/AICD is in place. There is no pneumothorax. No pleur al effusion is identified. Mild right basilar opacity persists. Interstitial thickening has slightly improved. Additional bilateral opacities have slightly improved. Cardiomegaly is unchanged. Left inte rnal jugular central line is unchanged in position. IMPRESSION: Continued improvement in bilateral opacities and interstitial thickening suggestive of i mproving pulmonary edema. Mild residual right basilar opacity. ACT 112: Negative or not required by law. Electronically signed by: Frankie Cherry M.D. 08/27/2019 6:49 AM
[2019-08-27] MEDS: BUDESONIDE 0.25 MG/2 ML VIAL (PULMICORT) NEB SCH (07:28)
[2019-08-27] MEDS: ALBUT/IPRATROP 3MG/0.5MG NEB 3 ML VIAL NEB SCH ×3 (07:28→22:06)
[2019-08-27] MEDS: DOXYCYCLINE HYCLATE 100 MG CAP PO SCH ×2 (08:11→20:52)
[2019-08-27] MEDS: FAMOTIDINE 20 MG in SYRINGE 3 ML IV SCH (08:13)
--- NOTE | 2019-08-27 08:19 | Critical Care Progress Note ---
Date of Service August 27, 2019 Assessment & Plan (1) Respiratory failure with hypoxia and hypercapnia: Reason Critically Ill: 73-year-old transferred back to the ICU for acute respiratory failure requiring intubation, hypotensive on multiple vasopressors, currently being treated for ARDS, sepsis, ARF Neuro - [facility] ICU: Negative Cardiac - Systolic CHF/hypotensioncardiogenic versus septic shock echo from 06/18 showed EF 20 to 25% with significant akinesis of the anterior wall -Chest x-ray showed progression of pulmonary congestion consistent with ARDS versus CHF exacerbation -BNP 30,000, previously 7000 on this admission -Patient has diuresed adequately. Keep level balance. -Mixed venous SVO2 77 -Monitor strict I's and O's -Continue to monitor on telemetry Proximal V. tach/PAF/LBBBpatient s/p pacemaker with AICD - On Xarelto, ASA at home -Resumed rivaroxaban on 08/27/2019 -Keep potassium greater than 4, phosphorus greater than 3, magnesium greater than 2 Respiratory - Acute hypoxic hypercapnic respiratory failure/ARDSpatient recently diagnosed with influenza A pneumonia, consider secondary infection; likely mixed with CHF exacerbation -Influenza A positive on admission status post Tamiflu x5 days -CT chest was suggestive of multifocal bronchopneumonia and components of pulmonary edema on admission -Chest x-ray revealed progression of pulmonary congestion history of 30 to 40 pack/year tobacco abuse quit decades ago -Patient was placed on BiPAP without improvement, requiring intubation S/p extubation 08/25/2019 -Continue with inhaled therapy, steroids discontinued GI - Start clear liquid diet today 08/19/2019 as the patient is only on 1 inotrope RENAL/LYTES - Acute renal failurebaseline creatinine 1.4, now 1.8; patient oliguric despite aggressive diuresis -likely prerenal/ATN secondary to hypotension -Minimizing IV fluids due to severe pulmonary congestion, status post Lasix drip -Avoid nephrotoxins -Trend creatinine - Foleystrict I's and O's ENDO - DM type IIpatient on glipizide, transitioned to sliding scale insulin -ICU hyperglycemic protocol HEME - H&H stable, monitor routine CBCs ID - Sepsispatient test positive for influenza A, blood cultures negative to date -Consider secondary pulmonary infection -CT from 08/18 suggestive of bronchopneumonia -Blood cultures and sputum culture negative to date. -Patient now doxycycline LINES/IV ACCESS - CVC, A-line, ETT DVT PROPHYLAXIS - SCDs, patient on Xarelto Plan: Continue to hold Lasix for the time being. Will resume likely Lasix p.o. later today or early tomorrow. Continue with strict in and out Try to titrate down dobutamine as much as possible. Dobutamine itself will work as a diuretic. Creatinine improving little bit. Patient still making good amount of urine. CODE STATUSdiscussed with patient's and determined patient is conditional DNR; no shocks, no compressions, no ACLS medications in the event his heart were to stop (2) Acute respiratory distress syndrome (ARDS): (3) Hyponatremia: (4) Acute on chronic renal failure: (5) Hypotension: (6) Pneumonia: (7) Hypoglycemia: (8) CHF (congestive heart failure): Subjective Patient seen and examined at bedside. No acute distress, no adverse events overnight Denies any shortness of breath, no chest pain, is coughing occasionally bringing up some phlegm. Denies any dizziness, no nausea or vomiting. Positive bowel movement. Positive flatulence. Patient has been off Levophed since last evening. Patient on dobutamine 15 the time of examination with good map and systolic blood pressure greater than 120. We will go down on dobutamine to 10 and see how the patient is doing. Review of Systems Review of Systems: All systems reviewed & are unremarkable except as noted in HPI & below Physical Exam Physical Exam: Constitutional: No acute distress HEENT: EOMI, PERRLA Respiratory system: Good air entry bilaterally, positive crackles bilateral lower lobes, no wheeze, no rhonchi CVS: S1-S2 positive, no murmurs or gallops, irregular Abdomen: Soft, nontender, nondistended, positive bowel sounds x4 Extremities: +2 pulses bilaterally radialis/ dorsalis pedis, no cyanosis, no edema Neuro: Awake alert oriented x3 Psych: Normal mood and affect G/U: Positive Malagon Lines: Left IJ central line, right radial A-line Skin: no rashes, warm and dry Lymphatic: no cervical or axillary lymphadenopathy Results & Data Vital Signs (Past 12 Hours) Vital Signs Temp Pulse Pulse Pulse Resp BP Pulse Ox 08/27/19 07:29 95 H 17 95 08/27/19 06:00 108 H 18 97 08/27/19 05:54 91 H 16 119/69 97 08/27/19 05:24 99 H 17 113/68 98 08/27/19 05:00 93 H 19 97 08/27/19 04:57 99 H 23 97 08/27/19 04:54 108 H 21 123/65 97 08/27/19 04:24 99 H 28 H 109/58 L 97 08/27/19 04:00 36.5 C 99 H 16 98 08/27/19 03:54 104 H 22 128/59 L 97 08/27/19 03:24 94 H 20 125/63 97 08/27/19 03:00 100 H 23 97 08/27/19 02:54 100 H 18 123/68 97 08/27/19 02:24 109 H 20 129/89 98 08/27/19 02:20 112 H 28 H 96 08/27/19 02:00 93 H 18 96 08/27/19 01:54 92 H 15 126/59 L 97 08/27/19 01:24 99 H 21 112/64 96 08/27/19 01:00 101 H 19 96 08/27/19 00:54 110 H 19 131/63 96 08/27/19 00:25 95 H 22 97 08/27/19 00:24 97 H 18 120/64 96 08/27/19 00:00 36.8 C 99 H 25 H 120/64 97 08/26/19 23:54 95 H 15 119/62 97 08/26/19 23:24 96 H 17 119/63 97 08/26/19 23:00 99 H 23 97 08/26/19 22:54 104 H 17 117/71 97 08/26/19 22:24 88 19 110/60 97 08/26/19 22:10 101 H 18 97 08/26/19 22:04 99 H 20 93 08/26/19 22:00 24 98 08/26/19 21:54 108 H 17 109/57 L 92 08/26/19 21:36 08/26/19 21:24 106 H 29 H 105/52 L 93 08/26/19 21:00 101 H 19 90 08/26/19 20:54 103 H 23 120/53 L 91 08/26/19 20:23 102 H 20 111/58 L 93 Pulse Ox 08/27/19 07:29 08/27/19 06:00 08/27/19 05:54 08/27/19 05:24 08/27/19 05:00 08/27/19 04:57 08/27/19 04:54 08/27/19 04:24 08/27/19 04:00 08/27/19 03:54 08/27/19 03:24 08/27/19 03:00 08/27/19 02:54 08/27/19 02:24 08/27/19 02:20 08/27/19 02:00 08/27/19 01:54 08/27/19 01:24 08/27/19 01:00 08/27/19 00:54 08/27/19 00:25 08/27/19 00:24 08/27/19 00:00 08/26/19 23:54 08/26/19 23:24 08/26/19 23:00 08/26/19 22:54 08/26/19 22:24 08/26/19 22:10 08/26/19 22:04 08/26/19 22:00 08/26/19 21:54 08/26/19 21:36 89 L 08/26/19 21:24 08/26/19 21:00 08/26/19 20:54 08/26/19 20:23 08/27/19 05:01 08/27/19 05:01 Coding Level of Care Code Critical Care 1st 30-74 mins Diagnoses Respiratory failure with hypoxia and hypercapnia J96.91; J96.92 Acute respiratory distress syndrome (ARDS) J80 Hyponatremia E87.1 Acute on chronic renal failure N17.9; N18.9 Hypotension I95.9 Pneumonia J18.9 Laterality: left Lung location: unspecified part of lung Pneumonia type: due to unspecified organism Hypoglycemia E16.2 CHF (congestive heart failure) I50.9 Heart failure chronicity: acute on chronic Heart failure type: unspecified Time Spent (min) 50 (1) Pneumonia Laterality: left Lung location: unspecified part of lung Pneumonia type: due to unspecified organism Qualified Code(s): J18.9 - Pneumonia, unspecified organism (2) CHF (congestive heart failure) Heart failure chronicity: acute on chronic Heart failure type: unspecified Qualified Code(s): I50.9 - Heart failure, unspecified
--- NOTE | 2019-08-27 08:29 | Cardiology Progress Note ---
Date of Service August 27, 2019 Assessment & Plan (1) CHF (congestive heart failure): He seems to be doing better, he is still fluid overloaded and probably still needs diuresis. We will have to very gentle due to his hypotension. (2) ICD (implantable cardioverter-defibrillator) in place: Normally functioning biventricular ICD based on telemetry (3) Atrial fibrillation: He remains in atrial fibrillation with a somewhat rapid heart rate, in part probably due to dobutamine (4) Ischemic cardiomyopathy: He seems to be gradually improving clinically. (5) Paroxysmal ventricular tachycardia: No significant further episodes. (6) Elevated troponin: This appears to have been due to demand ischemia. (7) Hypotension: He is doing better in this regard, he is no longer on Levophed and is on dobutamine. Subjective He seems to be feeling better today, he tells me he is doing better and he does not have any specific complaints other than telling me he starts shaking as soon as he takes his doxycycline, within 5 minutes. Physical Exam Physical Exam: Constitutional: Alert, cooperative and in no distress. Pulmonary: Decreased breath sounds at the bases on auscultation bilaterally. Cardiac: Regular rhythm with no murmur, gallop or rub. Abdomen: Soft, nontender with normal bowel sounds. Extremities: No edema. Skin: No rash, ecchymoses or petechiae. Results & Data Vital Signs (Past 12 Hours) Vital Signs Temp Pulse Pulse Pulse Resp BP Pulse Ox 08/27/19 07:29 95 H 17 95 08/27/19 06:00 108 H 18 97 08/27/19 05:54 91 H 16 119/69 97 08/27/19 05:24 99 H 17 113/68 98 08/27/19 05:00 93 H 19 97 08/27/19 04:57 99 H 23 97 08/27/19 04:54 108 H 21 123/65 97 08/27/19 04:24 99 H 28 H 109/58 L 97 08/27/19 04:00 36.5 C 99 H 16 98 08/27/19 03:54 104 H 22 128/59 L 97 08/27/19 03:24 94 H 20 125/63 97 08/27/19 03:00 100 H 23 97 08/27/19 02:54 100 H 18 123/68 97 08/27/19 02:24 109 H 20 129/89 98 08/27/19 02:20 112 H 28 H 96 08/27/19 02:00 93 H 18 96 08/27/19 01:54 92 H 15 126/59 L 97 08/27/19 01:24 99 H 21 112/64 96 08/27/19 01:00 101 H 19 96 08/27/19 00:54 110 H 19 131/63 96 08/27/19 00:25 95 H 22 97 08/27/19 00:24 97 H 18 120/64 96 08/27/19 00:00 36.8 C 99 H 25 H 120/64 97 08/26/19 23:54 95 H 15 119/62 97 08/26/19 23:24 96 H 17 119/63 97 08/26/19 23:00 99 H 23 97 08/26/19 22:54 104 H 17 117/71 97 08/26/19 22:24 88 19 110/60 97 08/26/19 22:10 101 H 18 97 08/26/19 22:04 99 H 20 93 08/26/19 22:00 24 98 08/26/19 21:54 108 H 17 109/57 L 92 08/26/19 21:36 08/26/19 21:24 106 H 29 H 105/52 L 93 08/26/19 21:00 101 H 19 90 08/26/19 20:54 103 H 23 120/53 L 91 08/26/19 20:23 102 H 20 111/58 L 93 Pulse Ox 08/27/19 07:29 08/27/19 06:00 08/27/19 05:54 08/27/19 05:24 08/27/19 05:00 08/27/19 04:57 08/27/19 04:54 08/27/19 04:24 08/27/19 04:00 08/27/19 03:54 08/27/19 03:24 08/27/19 03:00 08/27/19 02:54 08/27/19 02:24 08/27/19 02:20 08/27/19 02:00 08/27/19 01:54 08/27/19 01:24 08/27/19 01:00 08/27/19 00:54 08/27/19 00:25 08/27/19 00:24 08/27/19 00:00 08/26/19 23:54 08/26/19 23:24 08/26/19 23:00 08/26/19 22:54 08/26/19 22:24 08/26/19 22:10 08/26/19 22:04 08/26/19 22:00 08/26/19 21:54 08/26/19 21:36 89 L 08/26/19 21:24 08/26/19 21:00 08/26/19 20:54 08/26/19 20:23 Laboratory Results Cardiac Enzymes 08/26/19 08/26/19 08/27/19 Range/Units 11:51 18:15 00:14 AST 315 H 239 H 205 H (15-37) U/L 08/27/19 08/27/19 Range/Units 03:45 05:01 AST Cancelled 174 H (15-37) U/L Coagulation 08/27/19 Range/Units 03:45 PT 14.5 H (9.0-12.0) Seconds CBC 08/26/19 08/27/19 08/27/19 Range/Units 10:07 03:45 05:01 WBC Cancelled 17.80 H RBC Cancelled 3.45 L Hgb 10.8 L Cancelled 10.4 L (14.0-18.0) g/dL Hct 32.4 L Cancelled 31.7 L (42-52) % Plt Count Cancelled 331 Neut # (Auto) Cancelled 15.20 H Lymph # (Auto) Cancelled 0.63 L Russell # (Auto) Cancelled 0.81 H Eos # (Auto) Cancelled 0.02 Baso # (Auto) Cancelled 0.03 Comprehensive Metabolic Panel 08/26/19 08/26/19 08/27/19 Range/Units 11:51 18:15 00:14 Sodium 131 L 132 L 132 L (136-145) mmol/L Potassium 3.9 3.9 3.9 (3.5-5.1) mmol/L Chloride 98 101 100 (98-107) mmol/L Carbon Dioxide 23 25 24 (21-32) mmol/L BUN 64 H 65 H 65 H (7-18) mg/dl Creatinine 2.55 H 2.47 H 2.50 H (0.6-1.4) mg/dl Glucose 137 H 115 H 105 H (70-99) mg/dl Calcium 8.1 L 7.9 L 8.3 L (8.5-10.1) mg/dl AST 315 H 239 H 205 H (15-37) U/L ALT 908 H 788 H 745 H (12-78) U/L Alkaline Phosphatase 66 62 62 (45-117) U/L Total Protein 6.4 6.2 L 6.2 L (6.4-8.2) gm/dl Albumin 2.3 L 2.2 L 2.3 L (3.4-5.0) gm/dl 08/27/19 08/27/19 Range/Units 03:45 05:01 Sodium Cancelled 132 L (136-145) mmol/L Potassium Cancelled 3.9 (3.5-5.1) mmol/L Chloride Cancelled 100 (98-107) mmol/L Carbon Dioxide Cancelled 25 (21-32) mmol/L BUN Cancelled 64 H (7-18) mg/dl Creatinine Cancelled 2.41 H (0.6-1.4) mg/dl Glucose Cancelled 87 (70-99) mg/dl Calcium Cancelled 8.2 L (8.5-10.1) mg/dl AST Cancelled 174 H (15-37) U/L ALT Cancelled 691 H (12-78) U/L Alkaline Phosphatase Cancelled 59 (45-117) U/L Total Protein Cancelled 6.1 L (6.4-8.2) gm/dl Albumin Cancelled 2.3 L (3.4-5.0) gm/dl Intake and Output 08/26/19 08/27/19 08/27/19 22:59 06:59 14:59 Intake Total 532.510 / 1164.884 327.988 / 1164.884 243.893 / 243.893 Output Total 150 / 1230 670 / 1230 Balance 382.510 / -65.116 -342.012 / -65.116 243.893 / 243.893 Intake: IV 292.510 / 924.884 327.988 / 924.884 243.893 / 243.893 Dobutrex 1,000 mg In D5W 250 ml 318.24 / 318.24 243.893 / 243.893 In 250 ml @ 15 MCG/KG/MIN 27. 205 mls/hr IV .Q12H8M YARELY Rx#: [id number] NovoLIN R 250 UNITS In Nss 247. 17.488 / 43.516 9.748 / 43.516 5 ml @ 1 UNITS/HR 1 mls/hr IV . Q24H YARELY Rx#:[id number] Levophed Inj 16 mg In D5w 500 25.022 / 38.817 ml @ 0.01 MCG/KG/MIN 1.772 mls/ hr IV .Q24H YARELY Rx#:[id number] Nss 1000ML 250 ml @ 999 mls/hr 250 / 250 IV .Q16M ONE Rx#:[id number] Oral 240 / 240 Output: Urine Amount (Catheter) 150 / 1095 670 / 1095 Malagon/Indwelling 150 / 1095 670 / 1095 Other: Weight 94 kg Diagnostic Findings Telemetry: Atrial fibrillation with intermittent conduction and intermittent ventricular pacing, due to his increased heart rate he is not biventricular pacing a high percentage of the time. PG Care Time/CCT Total # of Minutes Spent Total Time Spent with Patient: Total time spent is greater than 50% in coordination of care (as documented) at patient's floor/unit and/or counseling patient: (1) CHF (congestive heart failure) Heart failure chronicity: acute on chronic Heart failure type: unspecified Qualified Code(s): I50.9 - Heart failure, unspecified
--- NOTE | 2019-08-27 11:03 | Nephrology Progress Note ---
Date of Service August 27, 2019 Assessment & Plan (1) Acute on chronic renal failure: Acute kidney injury in the setting of septic shock with pneumonia and flu. Hyponatremia possibly with volume overload. Responded very well to diuretics and volume status improved significantly No significant improvement in renal function yet. Na improved to 132. UO decent, net even with lasix 40 mg/d. --hold lasix for now, as pt has been having decent UO, pulmonary congestion improved --daily renal panel Will follow (2) Hyponatremia: (3) Chronic systolic congestive heart failure: (4) Hypotension: (5) Sepsis: Subjective Mr. Das seen and evaluated in ICU this am with family at bedside. Overall he is feeling much better. Now only on 1 pressor. Making urine, net even. CXR showed improved pulmonary congestion. No improvement in renal function. Review of Systems Review of Systems: All systems reviewed & are unremarkable except as noted in HPI & below Physical Exam Constitutional: + ill appearing; no acute distress Respiratory: no respiratory distress Auscultation: + crackles Cardiovascular: Rate/Rhythm: + irregularly irregular Heart Sounds: normal S1 and normal S2 Extremities: no edema Skin: no rashes, warm and dry Neurologic: awake; no focal motor deficits and not confused Psychiatric: A+Ox3, euthymic affect Results & Data Vital Signs (Past 12 Hours) Vital Signs Temp Pulse Pulse Resp BP Pulse Ox 08/27/19 08:24 103 H 19 106/56 L 90 08/27/19 08:00 38.2 C H 101 H 22 93 08/27/19 07:29 95 H 17 95 08/27/19 07:24 98 H 19 125/57 L 94 08/27/19 07:00 88 18 97 08/27/19 06:00 108 H 18 97 08/27/19 05:54 91 H 16 119/69 97 08/27/19 05:24 99 H 17 113/68 98 08/27/19 05:00 93 H 19 97 08/27/19 04:57 99 H 23 97 08/27/19 04:54 108 H 21 123/65 97 08/27/19 04:24 99 H 28 H 109/58 L 97 08/27/19 04:00 36.5 C 99 H 16 98 08/27/19 03:54 104 H 22 128/59 L 97 08/27/19 03:24 94 H 20 125/63 97 08/27/19 03:00 100 H 23 97 08/27/19 02:54 100 H 18 123/68 97 08/27/19 02:24 109 H 20 129/89 98 08/27/19 02:20 112 H 28 H 96 08/27/19 02:00 93 H 18 96 08/27/19 01:54 92 H 15 126/59 L 97 08/27/19 01:24 99 H 21 112/64 96 08/27/19 01:00 101 H 19 96 08/27/19 00:54 110 H 19 131/63 96 08/27/19 00:25 95 H 22 97 08/27/19 00:24 97 H 18 120/64 96 08/27/19 00:00 36.8 C 99 H 25 H 120/64 97 08/26/19 23:54 95 H 15 119/62 97 08/26/19 23:24 96 H 17 119/63 97 08/26/19 23:00 99 H 23 97 PG Care Time/CCT Total # of Minutes Spent Total Time Spent with Patient: Total time spent is greater than 50% in coordination of care (as documented) at patient's floor/unit and/or counseling patient: (1) Sepsis Sepsis acute organ dysfunction status: unspecified Sepsis type: sepsis due to unspecified organism Qualified Code(s): A41.9 - Sepsis, unspecified organism
[2019-08-27] MEDS: ASPIRIN 81 MG ECTAB PO SCH (12:00)
[2019-08-27] MEDS: guaiFENesin 600 MG TABCR PO SCH ×2 (12:00→20:52)
[2019-08-27] MEDS: DEXTROSE 5% IV SCH ×2 (14:13→22:45)
[2019-08-27] MEDS: DOBUTAMINE HCL IV SCH ×2 (14:13→22:45)
--- NOTE | 2019-08-27 15:04 | Pharmacy Report ---
Pharmacy Glycemic Short Note 2 - Date of Service August 27, 2019 - Glycemic Short BSG Results (Last 24 hours): 08/26/19 08/26/19 08/26/19 16:23 17:25 18:15 Glucose 115 H POC Glucose POC Glucose (other) 108 H 111 H 08/26/19 08/26/19 08/26/19 18:20 20:15 22:09 Glucose POC Glucose 118 H 103 H POC Glucose (other) 116 H 08/26/19 08/27/19 08/27/19 23:18 00:14 00:15 Glucose 105 H POC Glucose 101 H 102 H POC Glucose (other) 08/27/19 08/27/19 08/27/19 02:08 03:45 05:01 Glucose Cancelled 87 POC Glucose 101 H POC Glucose (other) 08/27/19 08/27/19 07:38 11:40 Glucose POC Glucose 105 H 144 H POC Glucose (other) OUTPATIENT ANTIDIABETIC REGIMEN: * glipizide 5mg daily * A1c: 5.6% 03/28/19 ASSESSMENT: 08/27 * Insulin drip titrated off overnight. Patient was started on bolus insulin with Novolog. * Norepinephrine off. Patient tolerating full liquid diet. * Acceptable glycemic control since drip was turned off. Uncertain if patient will require basal insulin due to A1c of 6.0% and risk factors for insulin resistance are decreasing. I will enter a loose Lantus scale to be given if patient develops hyperglycemia. 08/26 * Insulin drip continues this AM, running at a stable rate of 2.4 units/hr with BSGs in mid-100s * Pressor/inotrope support continues at this time in the form of norepi + dobutamine (vaso has been weaned off) * Clear liquid diet ordered, however pt not tolerating PO well * Given ongoing pressor support and stable BSGs and insulin infusion rates - this therapy would be best suited for glycemic control at this time 08/25 * Patient was initiated on IV insulin drip yesterday due to severe hyperglycemia in the setting of resp failure, infection and shock requiring pressor and inotropic support * This AM: patient has been extubated, RN was given instructions by battery tester and repairer to attempt to wean norepinephrine, and then subsequent pressors if possible, a diet has been ordered * Insulin drip down to 1.4 units/hr at this time * Will continue with IV insulin drip at this time given inability to titrate off vasopressors at this time (norepi rate has gone up somewhat) and uncertain PO intake. SQ insulin absorption is more erratic in the setting of pressor support. * Consider transition to SQ when stressors stabilized and pressor needs decreased PLAN FOR INPATIENT GLYCEMIC CONTROL: * Hold outpatient oral diabetes medications * Basal insulin * Lantus 0-10 units SQ qHS - 0 units for BSG less than 180 mg/dL - 10 units for BSG 180 mg/dL or more * Bolus insulin * Goal range: 120 - 150 mg/dL * Correction factor: 25 * Carb ratio: 1 unit for every 8 grams of CHO
--- NOTE | 2019-08-27 15:39 | Hospitalist Progress Note ---
Date of Service August 27, 2019 Assessment & Plan (1) Influenza A: Mr. Das is a 73yo M with a PMHx of CHF, type 2 diabetes, pAfib, CKD, dyslipidemia, hypertension, left bundle branch block, paroxysmal V. tach, and gout who has been admitted for septic shock in the setting of influenza A. He has been readmitted to the ICU for acute respiratory failure. Acute respiratory failure 2/2 acute on chronic CHF with ARDS Worsened respiratory status following fluid overload, required intubation, now extubated on 1L NC serial chest x rays have shown improving pulmonary edema.. lasix held and 250 ml bolus given due to overdiuresis yesterday Transitioning to PO lasix today Sepsis 2/2 influenza +/-superimposed pneumonia Flu A positive on admission CT chest shows multifocal bronchopneumonia with component of pulmonary edema Lactate 5.5, normalized 08/22 Finished course of Tamiflu Finished antibiotics and steroids Systolic CHF, acute on chronic CHF Echo 06/18 showed EF 20-25% with anterior wall akinesis CT chest, CXR suggestive of fluid overload, BNP elevated. CXR today improving. Continue aspirin Hold metoprolol, metolazone for hypotension Currently requiring pressor support, vasopressin and levophed D/C'd weaning dobutamine now V. tach/PAF/LBBB Status post pacemaker with AICD - ~25 beat of VTach during admission, AICD did not register/fire. Cardiology interrogated, feel AICD response was appropriate given the length and rate. Continue Xarelto Continue aspirin as above Metoprolol held as above Continuing to check K, mag and phos and repleting as necessary Transaminitis, hyperbilirubinemia, stabilized Likely 2/2 shock liver in the setting of sepsis, peaked CMP daily ROGELIO on CKD - worsening Baseline creatinine 1.2 Creatinine increased to 2.45 but is slightly improved today down to 2.41 Likely in the setting of hypotension/ATN vs. cardiorenal and now overdiuresis decreased diuresis and added small amount of fluid Type 2 diabetes mellitus, presentation with hypoglycemia Initial presentation suspect hypoglycemia in the setting of acute illness in combination with [employer] glipizide ICU hyperglycemia protocol, Q4H checks while intubated FEN/GI: Clear liquids, fluid limit 1500cc; DVT prophylaxis: Continue Xarelto Dispo: Continue ICU admission for pressor support hopefully can wean off all pressors by this weekend Plan/hope is to go home with family ultimately (2) ICD (implantable cardioverter-defibrillator) in place: (3) Atrial fibrillation: (4) Chronic kidney disease, stage 3 (moderate): (5) Diabetes mellitus type 2 with complications: (6) Dyslipidemia: (7) Gout: (8) Hypertension: (9) Left bundle branch block (LBBB): (10) Paroxysmal ventricular tachycardia: Supervising Physician Co-Signing Physician Notes I personally examined the patient and verified all novak points of history and exam, discussed case, and agree with decision making with Dr Choi. feeling better overall. down to dobutamine and doses coming down. no other new complaints. breathing OK. vitals noted nad breathing unlabored no accessory muscles no pallor or icterus A/P: 1. septic shock 2nd flu A infection & multifocal pneumonia - overall improving - pressors weaning. 2. fluA infection - finished tamiflu, continue supportive care - improving 3. b/l pneumonia -improving 4. NSVT - ICD interrogated; functioning fine. 5. severe chronic systolic CHF - developed severe acute/chronic CHF last evening requiring BIPAP and lasix IV followed by intubation. It appears his respiratory distress came on rather suddenly. now improving again - follow closely - this is probably his most brittle dx. 6. hyponatremia - multifactorial - acceptable. continue to follow 7. CAD - previous mild troponin elevation was likely myocardial demand ischemia in setting of septic shock. Troponin timmy to 3 following his intubation. I cannot exclude an acute ACS that contributed to his decompensation but appears more secondary to his critical condition. stable now. 8. a.fib - rates reasonable, continue anticoagulation 9. ROGELIO in setting of CKD stage 3 - continue to follow volume status, continue supportive care, continue to follow 10. acute hypoxic resp failure - multifactorial - pulmonary edema, +/- pneumonia, +/- fluA pneumonitis. this is improving nicely otherwise as above Subjective Mr. Das in high spirits today, continuing to feel well. He is encouraged to be off pressors and main complaint is to get more food. He denies any shortness of breath, denies any pain. Down to 1L NC and off of levo and vasopressin. He denies fevers, chills, chest pain, shortness of breath, GI symptoms, abdominal pain, skin lesions Review of Systems Review of Systems: All systems reviewed & are unremarkable except as noted in HPI & below Physical Exam Physical Exam: Constitutional: well developed and well nourished; no acute distress Eyes: PERRL, conjunctivae normal, anicteric sclerae ENMT: external ear and nose normal, oropharynx normal Respiratory: normal respiratory effort, lungs clear to auscultation Auscultation: + wheezes (Mild wheezing globally); no crackles, no rales and no rhonchi Cardiovascular: Rate/Rhythm: regular rate and regular rhythm Heart Sounds: no click, no gallop, no murmur and no cardiac rub Extremities: + pedal edema (1+ bilaterally) Gastrointestinal (Abdomen): normal bowel sounds, soft, nontender, no hepatos plenomegaly Results & Data Vital Signs (Past 12 Hours) Vital Signs Temp Pulse Pulse Resp BP Pulse Ox 08/27/19 14:53 77 17 90 08/27/19 13:55 16 101/53 L 92 08/27/19 13:24 95 H 20 86/43 L 93 08/27/19 12:08 36.8 C 108 H 23 93/44 L 96 08/27/19 11:24 103 H 19 95/59 L 93 08/27/19 10:54 92 H 22 105/57 L 94 08/27/19 10:24 98 H 19 115/61 95 08/27/19 09:54 88 24 112/56 L 96 08/27/19 09:24 110 H 23 115/56 L 93 08/27/19 08:24 103 H 19 106/56 L 90 08/27/19 08:00 38.2 C H 101 H 22 93 08/27/19 07:29 95 H 17 95 08/27/19 07:24 98 H 19 125/57 L 94 08/27/19 07:00 88 18 97 08/27/19 06:00 108 H 18 97 08/27/19 05:54 91 H 16 119/69 97 08/27/19 05:24 99 H 17 113/68 98 08/27/19 05:00 93 H 19 97 08/27/19 04:57 99 H 23 97 08/27/19 04:54 108 H 21 123/65 97 08/27/19 04:24 99 H 28 H 109/58 L 97 08/27/19 04:00 36.5 C 99 H 16 98 08/27/19 03:54 104 H 22 128/59 L 97 Resident Activity Tracking Resident Involvement: Resident Care Provided Care Provided: Adult Hospital Medicine
--- NOTE | 2019-08-27 16:07 | Billing Data ---
Date of Service August 27, 2019 Coding Level of Care Code 36539 Subseq Hosp Care Lvl 2
[2019-08-27] MEDS: RIVAROXABAN 15 MG TAB PO SCH (18:03)
[2019-08-27] MEDS ORDERED: LANTUS PER UNIT CHARGE SQ SCH (21:00)
[2019-08-28 04:09] LABS: Hematocrit (blood only) 30.6 % (42-52); Hemoglobin 10.2 g/dL (14.0-18.0); Mean Corpuscular Hemoglobin 30.5 pg (25-34); Mean Corpuscular Hgb Conc 33.3 g/dL (32-36); Mean Corpuscular Volume 91.6 fL (80-100); Mean Platelet Volume 10.9 fL (7.4-10.4); Platelet Count 272 K/uL (130-400); RDW Coefficient of Variation 17.2 % (11.5-14.5); RDW Standard Deviation 57.7 fL (36.4-46.3); Red Blood Count 3.34 M/uL (4.7-6.1); White Blood Count 14.05 K/uL (4.8-10.8)
[2019-08-28 04:32] LABS: Albumin Level 2.2 gm/dl (3.4-5.0); BUN Creatinine Ratio 29.9 (10-20); Calcium 8.1 mg/dl (8.5-10.1); Est GFR (African American) 28.8; Est GFR (Non-African American) 24.8; Magnesium 2.2 mg/dl (1.8-2.4); Potassium 4.3 mmol/L (3.5-5.1)
[2019-08-28 04:39] LABS: Ferritin 1439.1 ng/ml (8-388); Phosphorus 3.9 mg/dl (2.5-4.9)
--- NOTE | 2019-08-28 06:44 | Hospitalist Progress Note ---
Date of Service August 28, 2019 Assessment & Plan (1) Influenza A: Mr. Das is a 73yo M with a PMHx of CHF, type 2 diabetes, pAfib, CKD, dyslipidemia, hypertension, left bundle branch block, paroxysmal V. tach, and gout who has been admitted for septic shock in the setting of influenza A. He has been readmitted to the ICU for acute respiratory failure. Acute respiratory failure 2/2 acute on chronic CHF with ARDS Worsened respiratory status following fluid overload, required intubation, now extubated on 1L NC serial chest x rays have shown improving pulmonary edema.. lasix held and 250 ml bolus given due to overdiuresis yesterday Transitioned to PO lasix 08/27 Sepsis 2/2 influenza +/-superimposed pneumonia Flu A positive on admission CT chest shows multifocal bronchopneumonia with component of pulmonary edema Lactate 5.5, normalized 08/22 Finished course of Tamiflu Finished antibiotics and steroids Systolic CHF, acute on chronic CHF Echo 06/18 showed EF 20-25% with anterior wall akinesis CT chest, CXR suggestive of fluid overload, BNP elevated. CXR today improving. Continue aspirin Hold metoprolol, metolazone for hypotension Initially requiring pressor support, vasopressin and levophed D/C'd 08/27 dobutamine d/c'd today Continue to monitor in ICU for time being to make sure he does not require further pressor support V. tach/PAF/LBBB Status post pacemaker with AICD - ~25 beat of VTach during admission, AICD did not register/fire. Cardiology interrogated, feel AICD response was appropriate given the length and rate. Continue Xarelto Continue aspirin as above Metoprolol held as above Continuing to check K, mag and phos and repleting as necessary Transaminitis, hyperbilirubinemia, stabilized Likely 2/2 shock liver in the setting of sepsis Peaked and improving ROGELIO on CKD - worsening Baseline creatinine 1.2 Creatinine increased to 2.45 but is slightly improved today down to 2.41 Likely in the setting of hypotension/ATN vs. cardiorenal and now overdiuresis decreased diuresis and added small amount of fluid Type 2 diabetes mellitus, presentation with hypoglycemia Initial presentation suspect hypoglycemia in the setting of acute illness in combination with [employer] glipizide ICU hyperglycemia protocol, Q4H checks while intubated FEN/GI: Clear liquids, fluid limit 1500cc; DVT prophylaxis: Continue Xarelto Dispo: Continue ICU admission as only been off pressors for several hours but may start to think about stepping down to the floor (2) ICD (implantable cardioverter-defibrillator) in place: (3) Atrial fibrillation: (4) Chronic kidney disease, stage 3 (moderate): (5) Diabetes mellitus type 2 with complications: (6) Dyslipidemia: (7) Gout: (8) Hypertension: (9) Left bundle branch block (LBBB): (10) Paroxysmal ventricular tachycardia: Supervising Physician Co-Signing Physician Notes I personally examined the patient and verified all novak points of history and exam, discussed case, and agree with decision making with Dr Choi. Feeling good, breathing well. Was out of bed earlier and felt good. Eating reasonably. No new complaints. vitals noted nad lungs clear except for may be slightly coarse but no focal findings no rales no rhonchi no wheezes breathing unlabored no accessory muscles no pallor or icterus A/P: 1. septic shock 2nd flu A infection & multifocal pneumonia - overall improving - off pressors 2. fluA infection - finished tamiflu, continue supportive care - improving quite nicely 3. b/l pneumonia -improved. Still having a little bit of residual purulent sputum, but overall much much better. 4. NSVT - ICD interrogated; functioning fine. 5. severe chronic systolic CHF - developed severe acute/chronic CHF last evening requiring BIPAP and lasix IV followed by intubation. It appears his respiratory distress came on rather suddenly. now improving again - follow closely but lungs are clear today and breathing feels good- this is probably his most brittle dx. 6. hyponatremia - multifactorial - acceptable. continue to follow 7. CAD - previous mild troponin elevation was likely myocardial demand ischemia in setting of septic shock. Troponin timmy to 3 following his intubation. I cannot exclude an acute ACS that contributed to his decompensation but appears more secondary to his critical condition. stable now. 8. a.fib - rates reasonable, continue anticoagulation 9. ROGELIO in setting of CKD stage 3 - continue to follow volume status, continue supportive care, continue to follow 10. acute hypoxic resp failure - multifactorial - pulmonary edema, +/- pneumonia, +/- fluA pneumonitis. On reasonably low amounts of nasal cannula O2 11. DispositionICU for now, but with ongoing stability hopefully build to move him upstairs soon. PT/OT eval and treat, we discussed the high probability of needing rehab after what he has been through. otherwise as above Subjective Patient feeling well, has been up to the chair for several hours and is eating regular food again. He remains off all pressors and is feeling well. He denies any shortness of breath but does have quite a bit of productive cough. Patient asked about mass on neck that he has had since high school. Review of Systems Review of Systems: All systems reviewed & are unremarkable except as noted in HPI & below Physical Exam Physical Exam: Constitutional: well developed and well nourished; no acute distress Eyes: PERRL, conjunctivae normal, anicteric sclerae ENMT: external ear and nose normal, oropharynx normal Respiratory: normal respiratory effort, lungs clear to auscultation Auscultation: + wheezes (Mild wheezing globally); no crackles, no rales and no rhonchi Cardiovascular: Rate/Rhythm: regular rate and regular rhythm Heart Sounds: no click, no gallop, no murmur and no cardiac rub Extremities: + pedal edema (1+ bilaterally) Gastrointestinal (Abdomen): normal bowel sounds, soft, nontender, no hepatosplenomegaly Results & Data Vital Signs (Past 12 Hours) Vital Signs Temp Pulse Pulse Pulse Resp BP BP 08/28/19 06:00 36.4 C L 68 20 08/28/19 05:55 68 22 87/50 L 08/28/19 05:25 70 19 94/50 L 08/28/19 05:00 90 19 08/28/19 04:55 89 19 85/51 L 08/28/19 04:24 83 21 86/56 L 08/28/19 04:00 85 20 116/39 L 08/28/19 03:55 92 H 16 85/48 L 08/28/19 03:25 79 16 79/54 L 08/28/19 03:00 83 17 08/28/19 02:55 86 24 84/54 L 08/28/19 02:24 36.6 C 71 20 90/50 L 08/28/19 02:00 71 24 08/28/19 01:55 87 21 76/47 L 08/28/19 01:25 72 19 86/49 L 08/28/19 01:05 71 20 08/28/19 01:04 80 20 89/52 L 08/28/19 01:00 76 20 08/28/19 00:55 76 18 79/50 L 08/28/19 00:24 74 21 95/56 L 08/27/19 23:54 36.6 C 79 19 90/50 L 08/27/19 23:25 77 19 95/54 L 08/27/19 22:43 94/55 L 08/27/19 22:09 103 H 18 08/27/19 22:06 99 H 18 08/27/19 21:54 97 H 23 79/55 L 08/27/19 20:00 36.6 C 79 79 19 118/41 L 87/45 L 08/27/19 19:00 36.9 C 89 89 22 80/47 L Pulse Ox 08/28/19 06:00 93 08/28/19 05:55 96 08/28/19 05:25 96 08/28/19 05:00 97 08/28/19 04:55 95 08/28/19 04:24 96 08/28/19 04:00 94 08/28/19 03:55 94 08/28/19 03:25 96 08/28/19 03:00 95 08/28/19 02:55 93 08/28/19 02:24 95 08/28/19 02:00 94 08/28/19 01:55 93 08/28/19 01:25 97 08/28/19 01:05 98 08/28/19 01:04 97 08/28/19 01:00 98 08/28/19 00:55 98 08/28/19 00:24 98 08/27/19 23:54 98 08/27/19 23:25 97 08/27/19 22:43 08/27/19 22:09 91 08/27/19 22:06 91 08/27/19 21:54 91 08/27/19 20:00 95 08/27/19 19:00 93 Resident Activity Tracking Resident Involvement: Resident Care Provided Care Provided: Adult Hospital Medicine
[2019-08-28] MEDS: BUDESONIDE 0.25 MG/2 ML VIAL (PULMICORT) NEB SCH (07:13)
[2019-08-28] MEDS: ALBUT/IPRATROP 3MG/0.5MG NEB 3 ML VIAL NEB SCH ×3 (07:13→22:01)
--- NOTE | 2019-08-28 07:18 | XRay Report ---
XR chest 1V portable HISTORY: 73 years-old Male f/u follow-up study in a patient with shortness of breath COMPARISON: Chest radiograph 08/27/2019 TECHNIQUE: Portable AP view of the chest FINDINGS: Cardiac silhouette is enlarged, unchanged left IJ central venous catheter. Right subclavian pacer/AIC D is unchanged. Trace pleural effusions. Persistent mild right hemidiaphragmatic elevation. Mildly pr ogressed bibasilar opacities. Pulmonary vascular congestion with bilateral mixed interstitial and braulio eolar opacities redemonstrated. No pneumothorax. Slightly progressed interstitial coarsening. IMPRESSION: 1. Cardiomegaly with bilateral mixed interstitial and alveolar opacities, mildly worsened from compar dutch. Findings are suggestive of probable pulmonary edema. 2. Mildly progressed right basilar airspace opacities suggestive of atelectasis versus pneumonitis. ACT 112: Negative or not required by law. The above report was generated using voice recognition software. It may contain grammatical, syntax o r spelling errors. Electronically signed by: Marshall Ruffin M.D. 08/28/2019 7:16 AM
[2019-08-28] MEDS: FUROSEMIDE 40 MG TAB PO SCH (08:06)
[2019-08-28] MEDS: INSULIN ASPART 100 UNITS/ML 3 ML PEN SC SCH ×4 (08:07→20:22)
[2019-08-28] MEDS: guaiFENesin 600 MG TABCR PO SCH ×2 (08:08→20:22)
[2019-08-28] MEDS: DOXYCYCLINE HYCLATE 100 MG CAP PO SCH (08:08)
[2019-08-28] MEDS: ASPIRIN 81 MG ECTAB PO SCH (08:08)
[2019-08-28] MEDS: DOBUTAMINE HCL IV SCH (08:09)
[2019-08-28] MEDS: DEXTROSE 5% IV SCH (08:09)
[2019-08-28] MEDS: NOREPINEPHRINE BIT INJ 16 MG in DEXTROSE 5% 500 ML IV SCH (08:09)
[2019-08-28] MEDS: FAMOTIDINE 20 MG in SYRINGE 3 ML IV SCH (08:10)
--- NOTE | 2019-08-28 09:27 | Critical Care Progress Note ---
Date of Service August 28, 2019 Assessment & Plan (1) Respiratory failure with hypoxia and hypercapnia: Reason Critically Ill: 73-year-old transferred back to the ICU for acute respiratory failure requiring intubation, hypotensive on multiple vasopressors, currently being treated for ARDS, sepsis, ARF Neuro - [facility] ICU: Negative Cardiac - Systolic CHF/hypotensioncardiogenic versus septic shock echo from 06/18 showed EF 20 to 25% with significant akinesis of the anterior wall -Chest x-ray showed progression of pulmonary congestion consistent with ARDS versus CHF exacerbation -BNP 30,000, previously 7000 on this admission -Patient has diuresed adequately. -Monitor strict I's and O's -Continue to monitor on telemetry Proximal V. tach/PAF/LBBBpatient s/p pacemaker with AICD - On Xarelto, ASA at home -Resumed rivaroxaban on 08/27/2019 -Keep potassium greater than 4, phosphorus greater than 3, magnesium greater than 2 Respiratory - Acute hypoxic hypercapnic respiratory failure/ARDSpatient recently diagnosed with influenza A pneumonia, consider secondary infection; likely mixed with CHF exacerbation -Influenza A positive on admission status post Tamiflu x5 days -CT chest was suggestive of multifocal bronchopneumonia and components of pulmonary edema on admission history of 30 to 40 pack/year tobacco abuse quit decades ago -Patient was placed on BiPAP without improvement, requiring intubation S/p extubation 08/25/2019 -Continue with inhaled therapy, steroids discontinued, doxycycline completed 5 days on 08/28/2019 GI - Started clear liquid diet on 08/27/2019 RENAL/LYTES - Acute renal failurebaseline creatinine 1.4, now 1.8 -likely prerenal/ATN secondary to hypotension -Minimizing IV fluids due to severe pulmonary congestion, status post Lasix drip -Avoid nephrotoxins -Trend creatinine, plateaued at 2.45 - Foleystrict I's and O's ENDO - DM type IIpatient on glipizide, transitioned to sliding scale insulin -ICU hyperglycemic protocol HEME - H&H stable, monitor routine CBCs ID - Sepsispatient test positive for influenza A, blood cultures negative to date -Consider secondary pulmonary infection -CT from 08/18 suggestive of bronchopneumonia -Blood cultures and sputum culture negative to date. -We will DC doxycycline today. LINES/IV ACCESS - CVC, A-line, ETT DVT PROPHYLAXIS - SCDs, patient on Xarelto Plan: Chest x-ray from today shows mild worsening of the pulmonary edema. Although patient is negative balance. We will start the patient on Lasix today Patient has been off dobutamine since last night where his blood pressure has been on the lower side and is complaining of dizziness on exertion. Might need to restart dobutamine at low dose. CODE STATUSdiscussed with patient's and determined patient is conditional DNR; no shocks, no compressions, no ACLS medications in the event his heart were to stop (2) Acute respiratory distress syndrome (ARDS): (3) Hyponatremia: (4) Acute on chronic renal failure: (5) Hypotension: (6) Pneumonia: (7) Hypoglycemia: (8) CHF (congestive heart failure): Subjective Patient seen and examined at bedside. No acute distress, no adverse events overnight. Patient has been off dobutamine since yesterday 7 PM. Denies any chest pain, no palpitation, no headache, no nausea or vomiting. Tolerating diet. Positive flatulence. Patient does complain of dizziness on a little bit of exertion. Blood pressure has been on the soft side today. Chest x-ray also shows some worsening pulmonary edema. Review of Systems Review of Systems: All systems reviewed & are unremarkable except as noted in HPI & below Physical Exam Physical Exam: Constitutional: No acute distress HEENT: EOMI, PERRLA Respiratory system: Good air entry bilaterally, positive crackles bilateral lower lobes, no wheeze, no rhonchi CVS: S1-S2 positive, no murmurs or gallops, irregular Abdomen: Soft, nontender, nondistended, positive bowel sounds x4 Extremities: +2 pulses bilaterally radialis/ dorsalis pedis, no cyanosis, no edema Neuro: Awake alert oriented x3 Psych: Normal mood and affect G/U: Positive [place] Lines: Left IJ central line, right radial A-line Skin: no rashes, warm and dry Lymphatic: no cervical or axillary lymphadenopathy Results & Data Vital Signs (Past 12 Hours) Vital Signs Temp Pulse Pulse Resp BP Pulse Ox 08/28/19 07:15 79 16 97 08/28/19 06:00 36.4 C L 68 20 93 08/28/19 05:55 68 22 87/50 L 96 08/28/19 05:25 70 19 94/50 L 96 08/28/19 05:00 90 19 97 08/28/19 04:55 89 19 85/51 L 95 08/28/19 04:24 83 21 86/56 L 96 08/28/19 04:00 85 20 116/39 L 94 08/28/19 03:55 92 H 16 85/48 L 94 08/28/19 03:25 79 16 79/54 L 96 08/28/19 03:00 83 17 95 08/28/19 02:55 86 24 84/54 L 93 08/28/19 02:24 36.6 C 71 20 90/50 L 95 08/28/19 02:00 71 24 94 08/28/19 01:55 87 21 76/47 L 93 08/28/19 01:25 72 19 86/49 L 97 08/28/19 01:05 71 20 98 08/28/19 01:04 80 20 89/52 L 97 08/28/19 01:00 76 20 98 08/28/19 00:55 76 18 79/50 L 98 08/28/19 00:24 74 21 95/56 L 98 08/27/19 23:54 36.6 C 79 19 90/50 L 98 08/27/19 23:25 77 19 95/54 L 97 08/27/19 22:43 94/55 L 08/27/19 22:09 103 H 18 91 08/27/19 22:06 99 H 18 91 08/27/19 21:54 97 H 23 79/55 L 91 08/28/19 03:55 08/28/19 03:55 Intake & Output 08/26/19 08/27/19 08/28/19 08/29/19 06:59 06:59 06:59 06:59 Intake Total 2299.327 / 2299.327 1164.884 / 1164.884 693.578 / 693.578 Output Total 1743 / 1743 1230 / 1230 1460 / 1460 Balance 556.327 / 556.327 -65.116 / -65.116 -766.422 / -766.422 Weight 93 kg 94 kg 92.1 kg Coding Level of Care Code Critical Care 1st 30-74 mins Diagnoses Respiratory failure with hypoxia and hypercapnia J96.91; J96.92 Acute respiratory distress syndrome (ARDS) J80 Hyponatremia E87.1 Acute on chronic renal failure N17.9; N18.9 Hypotension I95.9 Pneumonia J18.9 Laterality: left Lung location: unspecified part of lung Pneumonia type: due to unspecified organism Hypoglycemia E16.2 CHF (congestive heart failure) I50.9 Heart failure chronicity: acute on chronic Heart failure type: unspecified Time Spent (min) 45 (1) Pneumonia Laterality: left Lung location: unspecified part of lung Pneumonia type: due to unspecified organism Qualified Code(s): J18.9 - Pneumonia, unspecified organism (2) CHF (congestive heart failure) Heart failure chronicity: acute on chronic Heart failure type: unspecified Qualified Code(s): I50.9 - Heart failure, unspecified
--- NOTE | 2019-08-28 10:45 | Nephrology Progress Note ---
Date of Service August 28, 2019 Assessment & Plan (1) Acute on chronic renal failure: Acute kidney injury in the setting of septic shock with pneumonia and flu. Hyponatremia possibly with volume overload. Responded very well to diuretics and volume status improved significantly No significant improvement in renal function yet. Na improved to 132. UO decent, net negative with lasix 40 mg/d. No significant improvement in renal function yet, sodium staying around 131-132. --would recommend holding diuretics as patient has been decent urine output with net negative, no respiratory distress although chest x-ray commented some worsening of pulmonary edema. As blood pressure improved, patient currently off of pressor, hopefully renal function will stabilize and start improving in next few days --daily renal panel Will follow (2) Hyponatremia: (3) Chronic systolic congestive heart failure: (4) Hypotension: (5) Sepsis: Subjective Mr. Das was seen and evaluated in ICU this am with family at bedside. Overall he is feeling well, off of pressor. Making urine, net negative. No improvement in renal function. Review of Systems Review of Systems: All systems reviewed & are unremarkable except as noted in HPI & below Physical Exam Constitutional: WD/WN, vitals as above + ill appearing and cooperative; no acute distress Respiratory: normal respiratory effort; no respiratory distress and no cough Auscultation: + crackles (mild at right base); no wheezes Cardiovascular: RRR, no murmur, no edema Rate/Rhythm: + irregularly irre gular Heart Sounds: normal S1 and normal S2 Extremities: no edema Skin: no rashes, warm and dry Neurologic: awake; no focal motor deficits and not confused Motor/Sensory: + tremor Psychiatric: A+Ox3, euthymic affect Results & Data Vital Signs (Past 12 Hours) Vital Signs Temp Pulse Pulse Resp BP Pulse Ox 08/28/19 10:00 82 21 96 08/28/19 09:12 77 15 91 08/28/19 08:00 36.5 C 88 24 93 08/28/19 07:55 79 21 90/54 L 93 08/28/19 07:25 72 21 92/52 L 98 08/28/19 07:15 79 16 97 08/28/19 07:00 76 20 93 08/28/19 06:00 36.4 C L 68 20 93 08/28/19 05:55 68 22 87/50 L 96 08/28/19 05:25 70 19 94/50 L 96 08/28/19 05:00 90 19 97 08/28/19 04:55 89 19 85/51 L 95 08/28/19 04:24 83 21 86/56 L 96 08/28/19 04:00 85 20 116/39 L 94 08/28/19 03:55 92 H 16 85/48 L 94 08/28/19 03:25 79 16 79/54 L 96 08/28/19 03:00 83 17 95 08/28/19 02:55 86 24 84/54 L 93 08/28/19 02:24 36.6 C 71 20 90/50 L 95 08/28/19 02:00 71 24 94 08/28/19 01:55 87 21 76/47 L 93 08/28/19 01:25 72 19 86/49 L 97 08/28/19 01:05 71 20 98 08/28/19 01:04 80 20 89/52 L 97 08/28/19 01:00 76 20 98 08/28/19 00:55 76 18 79/50 L 98 08/28/19 00:24 74 21 95/56 L 98 08/27/19 23:54 36.6 C 79 19 90/50 L 98 08/27/19 23:25 77 19 95/54 L 97 08/27/19 22:43 94/55 L PG Care Time/CCT Total # of Minutes Spent Total Time Spent with Patient: Total time spent is greater than 50% in coordination of care (as documented) at patient's floor/unit and/or counseling patient: (1) Sepsis Sepsis acute organ dysfunction status: unspecified Sepsis type: sepsis due to unspecified organism Qualified Code(s): A41.9 - Sepsis, unspecified organism
--- NOTE | 2019-08-28 11:34 | Pharmacy Report ---
Pharmacy Glycemic Short Note 2 - Date of Service August 28, 2019 - Glycemic Short BSG Results (Last 24 hours): 08/27/19 08/27/19 08/27/19 11:40 17:58 20:44 Glucose POC Glucose 144 H 145 H 173 H 08/28/19 08/28/19 03:55 11:01 Glucose 127 H POC Glucose 145 H OUTPATIENT ANTIDIABETIC REGIMEN: * glipizide 5mg daily * A1c: 5.6% 03/28/19 ASSESSMENT: 08/28 * Pressor/inotrope support has been titrated off. Diet advanced. * Lavell received 9 units of bolus insulin over the past 24 hours - no basal. * BSGs ranged from 101-173 mg/dL. Fasting BSG acceptable. * No changes to insulin regimen at this time 08/27 * Insulin drip titrated off overnight. Patient was started on bolus insulin with Novolog. * Norepinephrine off. Patient tolerating full liquid diet. * Acceptable glycemic control since drip was turned off. Uncertain if patient will require basal insulin due to A1c of 6.0% and risk factors for insulin resistance are decreasing. I will enter a loose Lantus scale to be given if patient develops hyperglycemia. 08/26 * Insulin drip continues this AM, running at a stable rate of 2.4 units/hr with BSGs in mid-100s * Pressor/inotrope support continues at this time in the form of norepi + dobutamine (vaso has been weaned off) * Clear liquid diet ordered, however pt not tolerating PO well * Given ongoing pressor support and stable BSGs and insulin infusion rates - this therapy would be best suited for glycemic control at this time PLAN FOR INPATIENT GLYCEMIC CONTROL: * Hold outpatient oral diabetes medications * Basal insulin * Lantus 0-10 units SQ qHS - 0 units for BSG less than 180 mg/dL - 10 units for BSG 180 mg/dL or more * Bolus insulin * Goal range: 120 - 150 mg/dL * Correction factor: 25 * Carb ratio: 1 unit for every 8 grams of CHO
[2019-08-28] MEDS: RIVAROXABAN 15 MG TAB PO SCH (16:36)
--- NOTE | 2019-08-28 18:26 | Billing Data ---
Date of Service August 28, 2019 Coding Level of Care Code 07321 Subseq Hosp Care Lvl 2
[2019-08-28] MEDS ORDERED: DOXYCYCLINE HYCLATE 100 MG CAP PO ONE (19:00)
[2019-08-28] MEDS ORDERED: LANTUS PER UNIT CHARGE SQ SCH (21:00)
[2019-08-29] MEDS: DEXTROSE 5% IV SCH (01:10)
[2019-08-29] MEDS: DOBUTAMINE HCL IV SCH (01:10)
[2019-08-29 04:54] LABS: Hematocrit (blood only) 32.4 % (42-52); Hemoglobin 10.4 g/dL (14.0-18.0); Mean Corpuscular Hemoglobin 29.7 pg (25-34); Mean Corpuscular Hgb Conc 32.1 g/dL (32-36); Mean Corpuscular Volume 92.6 fL (80-100); Mean Platelet Volume 11.3 fL (7.4-10.4); Platelet Count 321 K/uL (130-400); RDW Standard Deviation 57.7 fL (36.4-46.3); White Blood Count 16.44 K/uL (4.8-10.8)
[2019-08-29 05:13] LABS: Albumin Level 2.2 gm/dl (3.4-5.0); BUN Creatinine Ratio 32.3 (10-20); Calcium 8.3 mg/dl (8.5-10.1); Creatinine Clr Calc Pharmacy 28.9 ml/min; Est GFR (African American) 27.8; Magnesium 2.3 mg/dl (1.8-2.4)
[2019-08-29 05:14] LABS: Phosphorus 3.8 mg/dl (2.5-4.9)
--- NOTE | 2019-08-29 07:06 | Critical Care Progress Note ---
Date of Service August 29, 2019 Assessment & Plan (1) Influenza A: Reason Critically ill: Mr. Das is a 73yo M with a PMHx of CHF, type 2 diabetes, pAfib, CKD, dyslipidemia, hypertension, runs of vtach who has been very difficult to balance fluid overload and hypotension. Was in a similar state to now five days ago and ended up getting fluid overloaded again and needing to be intubated and returned to the unit. Neuro: Neurologically intact Cam ICU negative Respiratory: Acute respiratory failure 2/2 acute on chronic CHF Worsened respiratory status following fluid overload, required intubation, now extubated on 1L NC serial chest x rays have shown improving pulmonary edema since intubation but last two have shown no clear change Still on just 1 L and tolerating well Lung exam sounds more "wet" than it did two days ago Lasix 40 mg po daily -Cumulatively still +3.5 total over hospital stay though he did present profoundly dehdyrated Cardiovascular: Systolic CHF, acute on chronic CHF Echo 06/18 showed EF 20-25% with anterior wall akinesis. CT chest, CXR suggestive of fluid overload, BNP elevated. Initially requiring pressor support, vasopressin and levophed D/C'd 08/27 dobutamine d/c'd today Continuing aspirin Continuing rivaroxaban for his atrial fibrillation Rate well controlled holding antihypertensives secondary to hypotension GI: Shock liver APpears to have peaked and is improving Will continue to trend AST/ALT RENAL: ROGELIO on CKD - worsening Has been fairly stable since hypotensive and on pressors May be component of ATN, Still making good amount of urine, will continue to monitor ID: Sepsis 2/2 influenza +/-superimposed pneumonia Flu A positive on admission, CT chest at that time showed multifocal bronchopneumonia Lactate 5.5, normalized 08/22. Completed course of Tamiflu, antibiotics, steroids. Appears to be resolved completely, no more antibiotics and tamiflu course completed ENDOCRINE: Type 2 diabetes mellitus, presentation with hypoglycemia Glycemic consult placed Patient stable for 24 hours breathing improved, off all pressors, ready for step down to PCU (2) ICD (implantable cardioverter-defibrillator) in place: (3) Atrial fibrillation: (4) Chronic kidney disease, stage 3 (moderate): (5) Diabetes mellitus type 2 with complications: (6) Dyslipidemia: (7) Gout: (8) Hypertension: (9) Left bundle branch block (LBBB): (10) Paroxysmal ventricular tachycardia: Supervising Physician Co-Signing Physician Notes Dr. Choi was resident physician during care of patient. I separately evaluated patient for novak portions of the history and the exam. I was present during the critical portion of medical decision making, and I discussed the case with the resident. I generally agree with the findings and plan. Patient has been aggressively diuresed and has been off dobutamine for vasoactive cardiogenic support. He is in chronic atrial fibrillation on Xarelto. This time I think it is reasonable to discontinue his arterial line and central line. He is stable for downgrade out of the ICU. I discussed the case with the hospitalist team Dr. Mcdonald. Layne Das continues to do well. In a good mood and making jokes today though he is very weak getting into and out of bed. He denies chest pain, shortness of breath, abdominal pain, GI symptoms or other concerns. We discussed that he will likely benefit from inpatient rehabilitation after discharge from the hospital and he is agreeable. Review of Systems Review of Systems: All systems reviewed & are unremarkable except as noted in HPI & below Physical Exam Constitutional: well developed and well nourished; no acute distress Eyes: PERRL, conjunctivae normal, anicteric sclerae ENMT: external ear and nose normal, oropharynx normal Respiratory: normal respiratory effort, lungs clear to auscultation Auscultation: + wheezes (Mild wheezing globally); no crackles, no rales and no rhonchi Cardiovascular: Rate/Rhythm: regular rate and regular rhythm Heart Sounds: no click, no gallop, no murmur and no cardiac rub Extremities: + pedal edema (1+ bilaterally) Gastrointestinal (Abdomen): normal bowel sounds, soft, nontender, no hepatosplenomegaly Results & Data Vital Signs (Past 12 Hours) Vital Signs Temp Pulse Pulse Resp BP Pulse Ox 08/29/19 06:00 79 18 95 08/29/19 05:54 36.5 C 78 21 99/58 L 94 08/29/19 05:00 71 21 93 08/29/19 04:00 74 9 L 105/57 L 91 08/29/19 03:55 75 19 95 08/29/19 03:54 36.5 C 73 20 105/57 L 95 08/29/19 03:00 81 24 95 08/29/19 02:00 86 24 95 08/29/19 01:15 88 17 107/62 96 08/29/19 01:00 87 19 107/62 97 08/29/19 00:00 36.5 C 64 17 94 08/28/19 23:00 63 21 98 08/28/19 22:01 84 74 22 98 08/28/19 22:00 67 18 99 08/28/19 21:00 84 27 H 90 08/28/19 20:00 36.5 C 85 16 84/44 L 85 L Resident Activity Tracking Resident Involvement: Resident Care Provided Care Provided: Adult Hospital Medicine
[2019-08-29] MEDS: ALBUT/IPRATROP 3MG/0.5MG NEB 3 ML VIAL NEB SCH ×3 (07:17→23:35)
[2019-08-29] MEDS: BUDESONIDE 0.25 MG/2 ML VIAL (PULMICORT) NEB SCH (07:17)
--- NOTE | 2019-08-29 07:32 | XRay Report ---
XR chest 1V portable HISTORY: Shortness of breath. COMPARISON: Chest 08/28/2019. FINDINGS: No pneumothorax. The heart is mildly enlarged. Right-sided pacemaker/defibrillator is again noted. There are low lung volumes. Perihilar interstitial and vascular thickening which is similar t o the prior study. Suspect a trace right pleural effusion. There are patchy right basilar densities, unchanged. IMPRESSION: No change compared to prior study. Findings suggest mild pulmonary edema. Right basilar densities and a trace right pleural effusion persists. ACT 112: Negative or not required by law. Electronically signed by: Mian Mcelroy M.D. 08/29/2019 7:31 AM
[2019-08-29] MEDS: INSULIN ASPART 100 UNITS/ML 3 ML PEN SC SCH ×4 (07:46→22:07)
[2019-08-29] MEDS: guaiFENesin 600 MG TABCR PO SCH ×2 (07:48→22:08)
[2019-08-29] MEDS: FUROSEMIDE 40 MG TAB PO SCH (07:49)
[2019-08-29] MEDS: ASPIRIN 81 MG ECTAB PO SCH (07:49)
[2019-08-29] MEDS: FAMOTIDINE 20 MG in SYRINGE 3 ML IV SCH (07:51)
--- NOTE | 2019-08-29 09:52 | Nephrology Progress Note ---
Date of Service August 29, 2019 Assessment & Plan (1) Acute on chronic renal failure: Acute kidney injury in the setting of septic shock with pneumonia and flu -- Responded very well to diuretics and volume status improved significantly. Continue Furosemide 40 mg po daily. I&O's matched overnight -- Kidney function remains stable. Electrolyte balance is acceptable. No acute indication for HD today -- Recheck PRP in am (2) Hyponatremia: -- Sodium stable at 132 mmol/L. Patient asymptomatic. Will monitor (3) Chronic systolic congestive heart failure: -- ICM w/ LVEF 25%. AICD in place -- Atrial fibrillation on Xarelto therapy -- Elevated troponin this admission due to demand ischemia. Cardiology is following (4) Hypotension: -- Off pressors x 48hrs. Systolic blood pressure 90 - 100 mmHg. Patient nonoliguric. Will monitor (5) Sepsis: -- Influenza A complicated by multilobar pneumonia and sepsis. Recovering. Has completed antibiotic therapy Subjective Mr. Das was seen & examined in the ICU this morning. He remains off pressor support and reports that his breathing and stamina are improved. Mr. Das has a Malagon catheter in place draining clear yellow urine. Review of Systems Constitutional: no fever Eyes: no worsening vision and no problem reported Ear, Nose, Mouth, Throat: no problem reported Respiratory: + dyspnea on exertion Cardiovascular: no chest pain, no palpitations and no edema Gastrointestinal: no abdominal pain, no nausea, no vomiting and no diarrhea/loose stools Musculoskeletal: no back pain Integumentary: no rash Neurologic: no confusion Physical Exam Constitutional: not in distress Eyes: PERRL, conjunctivae normal, anicteric sclerae ENMT: external ear and nose normal, oropharynx normal Neck: trachea midline, no thyromegaly Respiratory: normal respiratory effort, lungs clear to auscultation Cardiovascular: Rate/Rhythm: + irregularly irregular Extremities: no edema Gastrointestinal (Abdomen): normal bowel sounds, soft, nontender, no hepatosplenomegaly Musculoskeletal: Extremities: no cyanosis Skin: no rashes, warm and dry Neurologic: awake; not confused Results & Data Vital Signs (Past 12 Hours) Vital Signs Temp Pulse Pulse Resp BP Pulse Ox 08/29/19 08:00 83 168/51 H 08/29/19 07:34 74 16 94 08/29/19 06:00 79 18 95 08/29/19 05:54 36.5 C 78 21 99/58 L 94 08/29/19 05:00 71 21 93 08/29/19 04:00 74 9 L 105/57 L 91 08/29/19 03:55 75 19 95 08/29/19 03:54 36.5 C 73 20 105/57 L 95 08/29/19 03:00 81 24 95 08/29/19 02:00 86 24 95 08/29/19 01:15 88 17 107/62 96 08/29/19 01:00 87 19 107/62 97 08/29/19 00:00 36.5 C 64 17 94 08/28/19 23:00 63 21 98 08/28/19 22:01 84 74 22 98 08/28/19 22:00 67 18 99 Laboratory Results Laboratory Tests 08/29/19 08/29/19 04:32 04:32 WBC 16.44 H Hgb 10.4 L Hct 32.4 L Plt Count 321 Sodium 132 L Potassium 4.0 Chloride 102 Carbon Dioxide 24 BUN 82 H Creatinine 2.52 H Glucose 100 H PG Care Time/CCT Total # of Minutes Spent Total Time Spent with Patient: Total time spent is greater than 50% in coordination of care (as documented) at patient's floor/unit and/or counseling patient: (1) Sepsis Sepsis acute organ dysfunction status: unspecified Sepsis type: sepsis due to unspecified organism Qualified Code(s): A41.9 - Sepsis, unspecified organism
--- NOTE | 2019-08-29 11:00 | Palliative Care Consultation ---
Date of Consultation August 29, 2019 Assessment & Plan (1) Goals of care, counseling/discussion: -73 year old male patient with PMH long-standing heart failure with EF 20- 25% since 1997, home Trilogy machine with questionable compliance, COPD, DM type 2, PAF, CKD, dyslipidemia, htn, left BBB, paroxysmal Vtach, and others, presented to the hospital on 08/20 with hypotension, influenza A, and sesis 2/2 pneumonia. CXR showed cardiomegaly and multifocal pneumonia, had elevated lactate, BP 76/48. Was admitted to ICU for septic shock. He was given IVF and started on pressors. IVF were given which did improve his blood pressure, but put patient into volume overload. he was diuresed, pressors eventually discontinued, patient's condition overall improved. Echo in May 2019 showed EF 20-25% with akinesis of anterior wall. Patient's LFTs elevated due to shock liver. He was transitioned to PO Lasix and metolazone, transferred out of ICU on 08/23. Unfortunately patient then decompensated with volume overload and was transferred back to ICU on 08/24, requiring intubation for respiratory failure and ARDS. He quickly improved with aggressive diuresis and was extubated on 08/25. Patient's creatinine worsening and is now 2.52 today. He was oliguric over the weekend but fortunately urine output has picked up today. Nephrology consulted but patient stated he would not want dialysis if it came to that. Patient also told sat tutor that he did not want CPR in event of cardiac arrest but would be okay with short-term intubation as part of treatment. Palliative care is now consulted to discuss goals of care. -Met with patient this morning in room 107. No family at bedside. Patient awake alert and oriented x4. States he is feeling much better than yesterday and overall feels improved. -Patient has lived with heart failure for over 20 years now and does quite well. He lives at home with his and has a very good quality of life. Independent at home. -We discussed the events of this hospitalization including patient's medical conditions. He confirmed that would not want dialysis if his kidneys happened to worsen. -Confirmed code status of NO CPR in event of cardiac arrest, but WOULD BE OKAY WITH INTUBATION, short-term, as part of treatment if needed. -Goal is to return home, but would be open to rehab if needed after hospitalization. -Patient's condition does seem to be improving. We will follow peripherally for now during hospitalization and see how he progresses. (2) Respiratory failure with hypoxia and hypercapnia: (3) Acute on chronic renal failure: (4) Influenza A: (5) CHF (congestive heart failure): Heart failure chronicity: acute on chronic Heart failure type: unspecified Qualified Code(s): I50.9 - Heart failure, unspecified (6) Pneumonia: Laterality: left Lung location: unspecified part of lung Pneumonia type: due to unspecified organism Qualified Code(s): J18.9 - Pneumonia, unspecified organism History of Present Illness Reason for Consultation: Goals of care Requesting Physician: Chely Attending Physician: Gracie Mcdonald DO History of Present Illness This 73 year old male patient with PMH long-standing heart failure with EF 20- 25% since 1997, home Trilogy machine with questionable compliance, COPD, DM type 2, PAF, CKD, dyslipidemia, htn, left BBB, paroxysmal Vtach, and others, presented to the hospital on 08/20 with hypotension, influenza A, and sesis 2/2 pneumonia. CXR showed cardiomegaly and multifocal pneumonia, had elevated lactate, BP 76/48. Was admitted to ICU for septic shock. He was given IVF and started on pressors. IVF were given which did improve his blood pressure, but put patient into volume overload. he was diuresed, pressors eventually discontinued, patient's condition overall improved. Echo in May 2019 showed EF 20-25% with akinesis of anterior wall. Patient's LFTs elevated due to shock liver. He was transitioned to PO Lasix and metolazone, transferred out of ICU on 08/23. Unfortunately patient then decompensated with volume overload and was transferred back to ICU on 08/24, requiring intubation for respiratory failure and ARDS. He quickly improved with aggressive diuresis and was extubated on 08/25. Patient's creatinine worsening and is now 2.52 today. He was oliguric over the weekend but fortunately urine output has picked up today. Nephrology consulted but patient stated he would not want dialysis if it came to that. Patient also told sat tutor that he did not want CPR in event of cardiac arrest but would be okay with short-term intubation as part of treatment. Palliative care is now consulted to discuss goals of care. Thank you kindly for this consult. Palliative care team will follow as needed. Allergies Allergy/AdvReac Type Severity Reaction Status Date / Time Xezkgri-Efh-Ywn Reductase Allergy Intermediate myalgia Verified 08/23/19 09:51 Inhibitor bee venom protein (honey bee) Allergy Unknown yellow Verified 08/20/19 18:24 jacket Penicillins Allergy Unknown Unknown Verified 08/23/19 09:51 levofloxacin AdvReac Intermediate nightmares Verified 08/20/19 18:24 Home Medications Home Medications Medication Instructions Recorded Confirmed Type furosemide 40 mg tablet 40 mg PO BID #180 tab 03/17/19 08/20/19 Rx metoprolol succinate 25 mg 25 mg PO DAILY #90 tab 03/17/19 08/20/19 Rx tablet,extended release 24 hr nitroglycerin 400 mcg/spray 1 sprays SL .COMPLEX PRN #4.9 gm 03/17/19 08/20/19 Rx translingual potassium chloride 20 mEq 20 meq PO DAILY #90 tab 03/17/19 08/20/19 Rx tablet,extended release aspirin [Aspir-81] 81 mg PO DAILY 06/11/19 08/20/19 History ferrous sulfate 325 mg (65 mg 325 mg PO DAILY 07/19/19 08/20/19 History iron) tablet sacubitril 24 mg-valsartan 26 mg 1 tab PO BID #180 tab 07/25/19 08/20/19 Rx tablet rivaroxaban 15 mg tablet 15 mg PO QPM 08/04/19 08/20/19 History cholecalciferol (vitamin D3) 5,000 5,000 units PO DAILY cap 08/09/19 08/20/19 History unit capsule fluticasone fur. 100 mcg-umeclid 1 puffs INH DAILY #28 ea 08/09/19 08/20/19 Rx 62.5 mcg-vilant 25 mcg inhalat.powder glipizide 5 mg tablet 5 mg PO DAILY #90 tab 08/12/19 08/20/19 Rx metolazone 2.5 mg tablet 2.5 mg PO DAILY tab 08/17/19 08/20/19 History azithromycin 500 mg tablet 500 mg PO DAILY 5 Days #5 tab 08/18/19 08/20/19 Rx oseltamivir 75 mg capsule 75 mg PO DAILY 14 Days #14 cap 08/19/19 08/20/19 Rx loperamide [Imodium A-D] 2 mg PO DIRECTED PRN 08/20/19 08/20/19 History Patient History Medical History Acute on chronic systolic congestive heart failure (Resolved) Anemia Arteriosclerotic cardiovascular disease (Acute) Atrial fibrillation (Chronic) Central hypothyroidism (Acute) Chronic kidney disease, stage 3 (moderate) (Chronic) Chronic systolic congestive heart failure (Acute) 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) Dyslipidemia (Acute) Gout (Acute) History of pacemaker Hypertension (Acute) ICD (implantable cardioverter-defibrillator) in place (Acute 09/02/11) Ischemic cardiomyopathy (Acute) Left bundle branch block (LBBB) (Acute) Multinodular goiter (Acute) Old myocardial infarction (Acute) Paroxysmal ventricular tachycardia (Acute) Pneumonia Solitary thyroid nodule (Acute) Vitamin D deficiency (Acute) Surgical History H/O hand surgery L index finger History of ankle surgery S/P foot surgery S/P knee surgery L patella fx repair Family History Father Myocardial infarction Family/Other Heart disease Hypertension Dyslipidemia Other Family history non-contributory Social History Preferred Language: Citizen Of [place] Communication Ability: Effective Visual Impairment: Limited Hearing Ability: Normal A P Manager Required: No Beliefs That Will Affect Care: None marital status: Current Living Situation: Spouse current occupational status: retired Other Information That Helps Us Care for You: No Feels Safe at Home: Yes Safety Concerns: Feels Safe At This Time Smoking Status: Unknown if ever smoked Hx Alcohol Use: No Hx Substance Use: No Childhood Exposure to Second-Hand Smoke: Yes caffeine: No during the past year weight has: remained stable Dental Care, Regularly: Yes Physical Activity Frequency: Does not Exercise Seatbelt Use: always Sunscreen Use: Yes Review of Systems Review of Systems: Const: + generalized weakness ENMT: No dysphagia Resp: + mild SOB, no cough Cardio: No chest pain, no edema GI: No abdominal pain, no N/V MS: No musculoskeletal pain Neuro: No confusion Psych: No anxiety Physical Exam Constitutional: well developed and well nourished; no acute distress ENMT: external ear and nose normal, oropharynx normal Respiratory: normal respiratory effort, lungs clear to auscultation Auscultation: + diminished lung sounds Cardiovascular: Rate/Rhythm: regular rate and regular rhythm Extremities: + edema (trace in left arm, none to BLE) Gastrointestinal (Abdomen): Inspection/Auscultation: normal bowel sounds Percussion/Palpation: abdomen soft; abdomen nontender Neurologic: moves all extremities and awake; not confused Psychiatric: A+Ox3, euthymic affect Insight: good insight Results & Data Vital Signs (Past 12 Hours) Vital Signs Temp Pulse Pulse Resp BP Pulse Ox 08/29/19 08:00 83 168/51 H 08/29/19 07:34 74 16 94 08/29/19 06:00 79 18 95 08/29/19 05:54 36.5 C 78 21 99/58 L 94 08/29/19 05:00 71 21 93 08/29/19 04:00 74 9 L 105/57 L 91 08/29/19 03:55 75 19 95 08/29/19 03:54 36.5 C 73 20 105/57 L 95 08/29/19 03:00 81 24 95 08/29/19 02:00 86 24 95 08/29/19 01:15 88 17 107/62 96 08/29/19 01:00 87 19 107/62 97 08/29/19 00:00 36.5 C 64 17 94 Time Spent Midlevel 70 minutes with >50% of the time spent at bedside with patient and ICU team discussing condition, goals, and plan of care.
[2019-08-29] MEDS: NOREPINEPHRINE BIT INJ 16 MG in DEXTROSE 5% 500 ML IV SCH (12:37)
--- NOTE | 2019-08-29 13:54 | Billing Data ---
Date of Service August 29, 2019 Coding Level of Care Code 06132 Subseq Hosp Care Lvl 1
--- NOTE | 2019-08-29 14:16 | Hospitalist Progress Note ---
Date of Service August 29, 2019 Assessment & Plan (1) Influenza A: Mr. Das is a 73yo M with a PMHx of CHF, type 2 diabetes, pAfib, CKD, dyslipidemia, hypertension, left bundle branch block, paroxysmal V. tach, and gout who has been admitted for septic shock in the setting of influenza A. He has been readmitted to the ICU for acute respiratory failure. He has been stable and off pressors for 36 hours he is been cleared to be downgraded to the PCU on 08/29 Acute respiratory failure 2/2 acute on chronic CHF with ARDS Worsened respiratory status following fluid overload, required intubation, now extubated on 1L NC serial chest x rays have shown improving pulmonary edema. -No change compared to prior studies, suggestive of mild pulmonary edema, right basilar densities, trace right pleural effusion persist Lasix 40 mg po daily -Cumulatively still +3.5 L throughout the hospital stay Sepsis 2/2 influenza +/-superimposed pneumonia Flu A positive on admission, CT chest shows multifocal bronchopneumonia with component of pulmonary edema. Lactate 5.5, normalized 08/22. Completed course of Tamiflu, antibiotics, steroids. -Monitor fever curve -Supportive care as indicated Systolic CHF, acute on chronic CHF Echo 06/18 showed EF 20-25% with anterior wall akinesis. CT chest, CXR suggestive of fluid overload, BNP elevated. Initially requiring pressor support, vasopressin and levophed D/C'd 08/27 dobutamine d/c'd today Continue aspirin Downgrade from ICU is no longer requiring pressor support V. tach/PAF/LBBB Status post pacemaker with AICD, ~25 beat of VTach during admission, AICD did not register/fire. Cardiology interrogated, feel AICD response was appropriate given the length and rate. Continue Xarelto Continue aspirin as above Metoprolol held as above -Trend daily BMP plus mag replete as indicated -Optimize electrolytes K greater than 4 mag greater than 2 Transaminitis, hyperbilirubinemia, stabilized Likely 2/2 shock liver in the setting of sepsis Peaked and improving ROGELIO on CKD - worsening Baseline creatinine 1.2 Creatinine increased to 2.52 Likely in the setting of hypotension/ATN vs. 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 (2) ICD (implantable cardioverter-defibrillator) in place: (3) Atrial fibrillation: (4) Chronic kidney disease, stage 3 (moderate): (5) Diabetes mellitus type 2 with complications: (6) Dyslipidemia: (7) Gout: (8) Hypertension: (9) Left bundle branch block (LBBB): (10) Paroxysmal ventricular tachycardia: Supervising Physician Co-Signing Physician Notes Patient seen and examined independently of PGY-2 Dr. Lee. Agree with history, exam findings, assessment and plan of care as outlined. Feeling well, breathing well. Getting a bit dyspneic and dizzy with walking. Off all pressors. Vital signs and nursing notes reviewed. Lungs with basilar crackles. 1. septic shock and acute resp failure 2/2 flu A, multifocal pneumonia. Completed course of tamiflu, antibiotics and steroids. 2. chronic systolic CHF. careful fluid status monitoring. I/O's, daily weights. 3. hyponatremia, may be due to pulm process. monitor. for now. 4. Afib. Rate controlled. AC. 5. ROGELIO on CKD. Follow carefully in the setting of fluids and diuresis. Dispo: transfer out of ICU now that he has been off pressors x 24 hours. Monitor fluid status carefully. PT/OT to help with discharge plan. Subjective Sitting up in bed in no acute distress. Making urine and catheter, had a bowel movement yesterday, sleeping overnight, tolerating diet. Acute concerns related to prognosis, and ability to maintain adequate blood pressure. All questions answered. Physical Exam Physical Exam: General:In no acute distress HEENT: Normocephalic atraumatic Neck: Trachea midline, normal to visual inspection, IJ in place Cardiac: Regularly irregular rhythm, rate controlled, I did not appreciate any significant murmurs, rubs, gallops, 1+ pedal edema bilaterally, negative calf tenderness Respiratory: Bibasilar rales otherwise clear to auscultation bilaterally, symmetrical chest expansion GI: Soft, nontender, nondistended, bowel sounds present Neuro: Alert and oriented Psych: Calm, cooperative Results & Data Vital Signs (Past 12 Hours) Vital Signs Temp Pulse Pulse Resp BP Pulse Ox 08/29/19 08:00 83 168/51 H 08/29/19 07:34 74 16 94 08/29/19 06:00 79 18 95 08/29/19 05:54 36.5 C 78 21 99/58 L 94 08/29/19 05:00 71 21 93 08/29/19 04:00 74 9 L 105/57 L 91 08/29/19 03:55 75 19 95 08/29/19 03:54 36.5 C 73 20 105/57 L 95 08/29/19 03:00 81 24 95 Laboratory Results 08/29/19 08/29/19 08/29/19 Range/Units 11:55 07:30 04:32 WBC (4.8-10.8) K/uL RBC (4.7-6.1) M/uL Hgb (14.0-18.0) g/dL Hct (42-52) % MCV (80-100) fL MCH (25-34) pg MCHC (32-36) g/dL RDW Std Deviation (36.4-46.3) fL RDW Coeff of Aliyah (11.5-14.5) % Plt Count (130-400) K/uL MPV (7.4-10.4) fL Sodium 132 L (136-145) mmol/L Potassium 4.0 (3.5-5.1) mmol/L Chloride 102 (98-107) mmol/L Carbon Dioxide 24 (21-32) mmol/L Anion Gap 6.0 (3-11) BUN 82 H (7-18) mg/dl Creatinine 2.52 H (0.6-1.4) mg/dl Est Cr Clr Drug Dosing 28.9 ml/min Est GFR ( Amer) 27.8 Est GFR (Non-Af Amer) 24.0 BUN/Creatinine Ratio 32.3 H (10-20) Glucose 100 H (70-99) mg/dl POC Glucose 135 H 104 H (70-99) Calcium 8.3 L (8.5-10.1) mg/dl Phosphorus 3.8 (2.5-4.9) mg/dl Magnesium 2.3 (1.8-2.4) mg/dl Albumin 2.2 L (3.4-5.0) gm/dl 08/29/19 08/28/19 08/28/19 Range/Units 04:32 20:20 16:05 WBC 16.44 H (4.8-10.8) K/uL RBC 3.50 L (4.7-6.1) M/uL Hgb 10.4 L (14.0-18.0) g/dL Hct 32.4 L (42-52) % MCV 92.6 (80-100) fL MCH 29.7 (25-34) pg MCHC 32.1 (32-36) g/dL RDW Std Deviation 57.7 H (36.4-46.3) fL RDW Coeff of Aliyah 17.0 H (11.5-14.5) % Plt Count 321 (130-400) K/uL MPV 11.3 H (7.4-10.4) fL Sodium (136-145) mmol/L Potassium (3.5-5.1) mmol/L Chloride (98-107) mmol/L Carbon Dioxide (21-32) mmol/L Anion Gap (3-11) BUN (7-18) mg/dl Creatinine (0.6-1.4) mg/dl Est Cr Clr Drug Dosing ml/min Est GFR ( Amer) Est GFR (Non-Af Amer) BUN/Creatinine Ratio (10-20) Glucose (70-99) mg/dl POC Glucose 98 190 H (70-99) Calcium (8.5-10.1) mg/dl Phosphorus (2.5-4.9) mg/dl Magnesium (1.8-2.4) mg/dl Albumin (3.4-5.0) gm/dl Medications Administered Current Inpatient Medications Albuterol (Ventolin 0.083% 2.5mg/3ml) 2.5 mg NEB Q2H PRN PRN Reason: Shortness Of Breath Or Wheezing Stop: 09/19/19 21:22 Albuterol (Duoneb) 3 ml NEB Q8R [facility] Stop: 09/25/19 14:59 Last Admin: 08/29/19 07:17 Dose: 3 ml Documented by: Aspirin (Ecotrin Ectab) 81 mg PO DAILY [facility] Stop: 09/20/19 08:59 Last Admin: 08/29/19 07:49 Dose: 81 mg Documented by: Benzonatate (Tessalon Perle) 100 mg PO TID PRN PRN Reason: cough Stop: 09/22/19 13:59 Budesonide (Pulmicort Respules) 0.25 mg NEB DAILY [facility] Stop: 09/25/19 08:59 Last Admin: 08/29/19 07:17 Dose: 0.25 mg Documented by: Dextrose (Dextrose 50%) 25 - 50 ml IV UD PRN; Protocol PRN Reason: Hypoglycemia Protocol Stop: 09/19/19 21:22 Last Admin: 08/25/19 09:40 Dose: 25 ml Documented by: Ferrous Sulfate (Feosol) 325 mg PO DAILY [facility] Stop: 09/20/19 08:59 Last Admin: 08/24/19 10:46 Dose: Not Given Documented by: Furosemide (Lasix) 40 mg PO QAM [facility] Stop: 09/27/19 07:14 Last Admin: 08/29/19 07:49 Dose: 40 mg Documented by: Glucagon (Glucagen) 1 mg SQ UD PRN; Protocol PRN Reason: Hypoglycemia Protocol Stop: 09/19/19 21:22 Glucose (Dex4 Glucose) 4 - 8 tabs PO UD PRN; Protocol PRN Reason: Hypoglycemia Protocol Stop: 09/19/19 21:22 Glucose (Glucose 40%) 15 - 30 gm PO UD PRN; Protocol PRN Reason: Hypoglycemia Protocol Stop: 09/19/19 21:22 Guaifenesin (Mucinex) 1,200 mg PO Q12 [facility] Stop: 09/22/19 20:59 Last Admin: 08/29/19 07:48 Dose: 1,200 mg Documented by: Heparin Sodium (Beef Lung) (Heparin Sod 10 Unit/Ml Flush) 5 ml FLUSH PRN PRN PRN Reason: Flush Stop: 09/25/19 23:00 Last Admin: 08/28/19 10:46 Dose: 15 ml Documented by: Famotidine 20 mg/ Syringe 5 mls @ 2.5 mls/min IV DAILY [facility] Stop: 09/25/19 07:59 Last Admin: 08/29/19 07:51 Dose: 2.5 mls/min Documented by: Norepinephrine Bitartrate 16 (mg/ Dextrose) 516 mls @ 1.772 mls/hr IV .Q24H [facility]; Protocol Stop: 09/23/19 02:59 Last Admin: 08/29/19 12:37 Dose: Not Given Documented by: Insulin Aspart (Novolog Flexpen) 0 units SC ACHS [facility] Stop: 09/26/19 07:29 Last Admin: 08/29/19 12:38 Dose: 3 units Documented by: Miscellaneous (Carbohydrates For Hypoglycemia) 15 - 30 gm PO UD PRN PRN Reason: Hypoglycemia Protocol Stop: 09/19/19 21:22 Miscellaneous Information (Consult Glycemic Management Pharmacy) 1 ea N/A UD PRN PRN Reason: Consult Stop: 09/20/19 11:46 Ondansetron HCl (Zofran) 4 mg IV Q6H PRN PRN Reason: Nausea Stop: 09/24/19 13:18 Last Admin: 08/25/19 14:13 Dose: 4 mg Documented by: Polyethylene Glycol (Miralax Powder Packet) 17 gm PO DAILY PRN PRN Reason: Constipation Stop: 09/21/19 09:41 Potassium Chloride (Klor-Con M20) 20 meq PO DAILY [facility] Stop: 09/20/19 08:59 Last Admin: 08/23/19 09:59 Dose: Not Given Documented by: Rivaroxaban (Xarelto) 15 mg PO QDD [facility] Stop: 09/21/19 16:29 Last Admin: 08/28/19 16:36 Dose: 15 mg Documented by: Vitamin D (Vitamin D3) 5,000 units PO DAILY [facility] Stop: 09/20/19 08:59 Last Admin: 08/24/19 09:36 Dose: Not Given Documented by: Resident Activity Tracking Resident Involvement: Resident Care Provided Care Provided: Adult Hospital Medicine
[2019-08-29] MEDS: RIVAROXABAN 15 MG TAB PO SCH (17:31)
[2019-08-30 06:55] LABS: Hematocrit (blood only) 32.3 % (42-52); Hemoglobin 10.6 g/dL (14.0-18.0); Mean Corpuscular Hgb Conc 32.8 g/dL (32-36); Mean Corpuscular Volume 91.5 fL (80-100); Mean Platelet Volume 11.3 fL (7.4-10.4); Platelet Count 369 K/uL (130-400); RDW Coefficient of Variation 17.1 % (11.5-14.5); RDW Standard Deviation 57.6 fL (36.4-46.3); Red Blood Count 3.53 M/uL (4.7-6.1); White Blood Count 17.31 K/uL (4.8-10.8)
[2019-08-30] MEDS: BUDESONIDE 0.25 MG/2 ML VIAL (PULMICORT) NEB SCH (07:13)
[2019-08-30] MEDS: ALBUT/IPRATROP 3MG/0.5MG NEB 3 ML VIAL NEB SCH ×3 (07:13→19:10)
[2019-08-30 07:30] LABS: Albumin Level 2.2 gm/dl (3.4-5.0); BUN Creatinine Ratio 36.9 (10-20); Calcium 8.2 mg/dl (8.5-10.1); Creatinine Clr Calc Pharmacy 31.1 ml/min; Est GFR (African American) 34.2; Est GFR (Non-African American) 29.6; Potassium 4.1 mmol/L (3.5-5.1)
[2019-08-30 07:32] LABS: Albumin Globulin Ratio 0.6 (0.9-2); Globulin 3.9 gm/dl (2.5-4.0); Total Protein 6.1 gm/dl (6.4-8.2)
[2019-08-30] MEDS: guaiFENesin 600 MG TABCR PO SCH ×2 (09:08→21:29)
[2019-08-30] MEDS: ASPIRIN 81 MG ECTAB PO SCH (09:08)
[2019-08-30] MEDS: FUROSEMIDE 40 MG TAB PO SCH (09:08)
[2019-08-30] MEDS: INSULIN ASPART 100 UNITS/ML 3 ML PEN SC SCH ×4 (09:09→21:27)
[2019-08-30] MEDS: FAMOTIDINE 20 MG in SYRINGE 3 ML IV SCH (09:10)
--- NOTE | 2019-08-30 09:27 | Cardiology Progress Note ---
Date of Service August 30, 2019 Assessment & Plan (1) CHF (congestive heart failure): Seems well compensated at this time. He continues on Lasix 40 mg daily. His typical dose at home is 40 mg b.i.d.. (2) ICD (implantable cardioverter-defibrillator) in place: Normally functioning biventricular ICD. (3) Atrial fibrillation: Currently in sinus rhythm with appropriate pacing. (4) Ischemic cardiomyopathy: The patient's metoprolol succinate and Entresto are currently on hold. (5) Left bundle branch block (LBBB): Chronic finding. (6) Paroxysmal ventricular tachycardia: No recent episodes. (7) Elevated troponin: Likely secondary to demand ischemia. (8) Hypotension: Remains off pressors. Subjective The patient is resting comfortably in the bedside chair without complaints of chest pain or dyspnea. Physical Exam Physical Exam: In general is well-developed white male seen at bedside 2 complaints. HEENT exam is negative. Neck is supple with full carotid upstrokes. No obvious bruits. Jugular venous pressure is difficult to assess. Cardiovascular exam reveals a regular rhythm with distant heart sounds. No murmurs. Lungs are clear without rales, rhonchi or wheezes. Chest reveals a palpable device in the left subclavicular region. Abdomen is soft bruits extremities reveal no edema. Results & Data Vital Signs (Past 12 Hours) Vital Signs Temp Pulse Pulse Resp BP Pulse Ox 08/30/19 08:00 36.8 C 72 18 101/71 96 08/30/19 07:15 70 18 98 08/30/19 04:33 36.6 C 82 20 90/51 L 94 08/29/19 23:52 36.6 C 61 18 101/64 95 08/29/19 23:35 85 18 95 Laboratory Results CBC notes hemoglobin of 10.6, hematocrit 32.3, white count 17.3, platelet count [id number]. Electrolytes note a sodium 133 potassium 4.1, chloride 102, bicarb 24, BUN 78, creatinine of 2.12. 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 PG Care Time/CCT Total # of Minutes Spent Total Time Spent with Patient: Total time spent is greater than 50% in coordination of care (as documented) at patient's floor/unit and/or counseling patient: (1) CHF (congestive heart failure) Heart failure chronicity: acute on chronic Heart failure type: unspecified Qualified Code(s): I50.9 - Heart failure, unspecified
--- NOTE | 2019-08-30 09:52 | Nephrology Progress Note ---
Date of Service August 30, 2019 Assessment & Plan (1) Acute on chronic renal failure: Acute kidney injury in the setting of septic shock with pneumonia and flu -- Malagon catheter has been removed. Patient is voiding on his own -- Nonoliguric. Remains ~ 3 L volume positive. Continue Furosemide 40 mg po daily -- Kidney function continues to gradually improve. Electrolyte balance is acceptable -- Recommend monitoring daily PRP. No further Nephrology evaluation needed at this time. Will sign off. Please call if further assistance is needed. (2) Chronic systolic congestive heart failure: -- ICM w/ LVEF 25%. AICD in place -- Atrial fibrillation on Xarelto therapy -- Elevated troponin this admission due to demand ischemia. Cardiology is following (3) Sepsis: -- Influenza A complicated by multilobar pneumonia and sepsis. Recovering. Has completed antibiotic therapy Subjective Mr. Das was seen and examined in his hospital room this morning. He has been transferred out of ICU and Malagon catheter has been removed. Mr. Das reports that he is passing his urine without complication. His breathing is subjecti vely improved. Review of Systems Constitutional: no fever Eyes: no worsening vision and no problem reported Ear, Nose, Mouth, Throat: no problem reported Respiratory: + dyspnea on exertion Cardiovascular: no chest pain, no palpitations and no edema Gastrointestinal: no abdominal pain, no nausea, no vomiting and no diarrhea/loose stools Musculoskeletal: no back pain Integumentary: no rash Neurologic: no confusion Physical Exam Constitutional: not in distress Eyes: PERRL, conjunctivae normal, anicteric sclerae ENMT: external ear and nose normal, oropharynx normal Neck: trachea midline, no thyromegaly Respiratory: Auscultation: + rales (at L base) Cardiovascular: Rate/Rhythm: + irregularly irregular Extremities: no edema Gastrointestinal (Abdomen): normal bowel sounds, soft, nontender, no hepatosplenomegaly Musculoskeletal: Extremities: no cyanosis Skin: no rashes, warm and dry Neurologic: awake; not confused Results & Data Vital Signs (Past 12 Hours) Vital Signs Temp Pulse Pulse Resp BP Pulse Ox 08/30/19 08:00 36.8 C 72 18 101/71 96 08/30/19 07:15 70 18 98 08/30/19 04:33 36.6 C 82 20 90/51 L 94 08/29/19 23:52 36.6 C 61 18 101/64 95 08/29/19 23:35 85 18 95 Laboratory Results Laboratory Tests 08/30/19 08/30/19 06:36 06:36 WBC 17.31 H Hgb 10.6 L Hct 32.3 L Plt Count 369 Sodium 133 L Potassium 4.1 Chloride 102 Carbon Dioxide 24 BUN 78 H Creatinine 2.12 H D Glucose 110 H PG Care Time/CCT Total # of Minutes Spent Total Time Spent with Patient: Total time spent is greater than 50% in coordination of care (as documented) at patient's floor/unit and/or counseling patient: (1) Sepsis Sepsis acute organ dysfunction status: unspecified Sepsis type: sepsis due to unspecified organism Qualified Code(s): A41.9 - Sepsis, unspecified organism
--- NOTE | 2019-08-30 10:05 | Hospitalist Progress Note ---
Date of Service August 30, 2019 Assessment & Plan (1) Influenza A: Mr. Das is a 73yo M with a PMHx of CHF, type 2 diabetes, pAfib, CKD, dyslipidemia, hypertension, left bundle branch block, paroxysmal V. tach, and gout who has been admitted for septic shock in the setting of influenza A. He has been readmitted to the ICU for acute respiratory failure. He has been stable and off pressors for 36 hours he is been cleared to be downgraded to the PCU on 08/29 Acute respiratory failure 2/2 acute on chronic CHF with ARDS Resolving Worsened respiratory status following fluid overload, required intubation, now extubated. Serial chest x rays have shown improving pulmonary edema, right basilar densities, trace right pleural effusion persist -On 2L NC. -wean as tolerated Lasix 40 mg po daily -Cumulatively still +3.5 L throughout the hospital stay -In his matching outs, no need to increase Lasix -We will obtain daily weights to trend water balance Sepsis 2/2 influenza +/-superimposed pneumonia Resolved Flu A positive on admission, CT chest shows multifocal bronchopneumonia with component of pulmonary edema. Lactate 5.5, normalized 08/22. Completed course of Tamiflu, antibiotics, steroids. -Monitor fever curve -Supportive care as indicated Systolic CHF, acute on chronic CHF Echo 06/18 showed EF 20-25% with anterior wall akinesis. CT chest, CXR suggestive of fluid overload, BNP elevated. Initially requiring pressor support, vasopressin and levophed D/C'd 08/27 dobutamine d/c'd today Continue aspirin V. tach/PAF/LBBB Status post pacemaker with AICD, ~25 beat of VTach during admission, AICD did not register/fire. Cardiology interrogated, feel AICD response was appropriate given the length and rate. Continue Xarelto Continue aspirin as above Metoprolol held as above -Trend daily BMP plus mag replete as indicated -Optimize electrolytes K greater than 4 mag greater than 2 Transaminitis, hyperbilirubinemia, stabilized Likely 2/2 shock liver in the setting of sepsis Peaked and improving ROGELIO on CKD - improving Baseline creatinine 1.2 Creatinine increased to 2.52->2.12 Likely 2/2 hypotension/ATN vs. cardiorenal and now overdiuresis Trend daily BMP Type 2 diabetes mellitus, presentation with hypoglycemia Initial presentation suspect hypoglycemia in the setting of acute illness in combination with [employer] glipizide Glycemic consult placed FEN/GI: Clear liquids, fluid limit 1500cc; DVT prophylaxis: Continue Xarelto Dispo:Downgrade to PCU Code: No CPR, Intubation okay. (2) ICD (implantable cardioverter-defibrillator) in place: (3) Atrial fibrillation: (4) Chronic kidney disease, stage 3 (moderate): (5) Diabetes mellitus type 2 with complications: (6) Dyslipidemia: (7) Gout: (8) Hypertension: (9) Left bundle branch block (LBBB): (10) Paroxysmal ventricular tachycardia: Supervising Physician Co-Signing Physician Notes Patient seen and examined independently of PGY-2 Dr. Lee. Agree with history, exam findings, assessment and plan of care as outlined. Feeling well, breathing well. Vital signs and nursing notes reviewed. Lungs with basilar crackles. 1. septic shock and acute resp failure 2/2 flu A, multifocal pneumonia. Completed course of tamiflu, antibiotics and steroids. Continue to wean O2. 2. chronic systolic CHF. careful fluid status monitoring. Continue Lasix 40mg po qd. I/O's, daily weights. 3. hyponatremia, may be due to pulm process. monitor. for now. 4. Afib. Rate controlled. AC. 5. ROGELIO on CKD. Follow carefully in the setting of fluids and diuresis. Dispo:Monitor fluid status carefully. PT/OT to help with discharge plan--has not been seen since tranfer out of ICU--may need acute rehab or SNF short term. Subjective Patient sitting upright in his chair this morning in no acute distress. Patient still requiring 2 L of nasal cannula however reports his breathing is much improved. Patient is coughing intermittently and bringing up yellow phlegm, he reports overall he is feeling significantly better. Patient's fluid output is matching his input no need to further adjust Lasix at this point, will continue to obtain daily weights to track his water balance. Acute concerns at present relate to his oxygen requirements, we are hopeful that he will be able to be weaned from these over the next day and subsequently discharged. Results & Data Vital Signs (Past 12 Hours) Vital Signs Temp Pulse Pulse Resp BP Pulse Ox 08/30/19 08:00 36.8 C 72 18 101/71 96 08/30/19 07:15 70 18 98 08/30/19 04:33 36.6 C 82 20 90/51 L 94 08/29/19 23:52 36.6 C 61 18 101/64 95 08/29/19 23:35 85 18 95 Laboratory Results 08/30/19 08/30/19 08/30/19 Range/Units 07:43 06:36 06:36 WBC 17.31 H (4.8-10.8) K/uL RBC 3.53 L (4.7-6.1) M/uL Hgb 10.6 L (14.0-18.0) g/dL Hct 32.3 L (42-52) % MCV 91.5 (80-100) fL MCH 30.0 (25-34) pg MCHC 32.8 (32-36) g/dL RDW Std Deviation 57.6 H (36.4-46.3) fL RDW Coeff of Aliyah 17.1 H (11.5-14.5) % Plt Count 369 (130-400) K/uL MPV 11.3 H (7.4-10.4) fL Sodium 133 L (136-145) mmol/L Potassium 4.1 (3.5-5.1) mmol/L Chloride 102 (98-107) mmol/L Carbon Dioxide 24 (21-32) mmol/L Anion Gap 7.0 (3-11) BUN 78 H (7-18) mg/dl Creatinine 2.12 H D (0.6-1.4) mg/dl Est Cr Clr Drug Dosing 31.1 ml/min Est GFR ( Amer) 34.2 Est GFR (Non-Af Amer) 29.6 BUN/Creatinine Ratio 36.9 H (10-20) Glucose 110 H (70-99) mg/dl POC Glucose 121 H (70-99) Calcium 8.2 L (8.5-10.1) mg/dl Total Bilirubin 1.0 (0.2-1) mg/dl AST 49 H (15-37) U/L ALT 279 H (12-78) U/L Alkaline Phosphatase 66 (45-117) U/L Total Protein 6.1 L (6.4-8.2) gm/dl Albumin 2.2 L (3.4-5.0) gm/dl Globulin 3.9 (2.5-4.0) gm/dl Albumin/Globulin Ratio 0.6 L (0.9-2) 08/29/19 08/29/19 Range/Units 22:05 11:55 WBC (4.8-10.8) K/uL RBC (4.7-6.1) M/uL Hgb (14.0-18.0) g/dL Hct (42-52) % MCV (80-100) fL MCH (25-34) pg MCHC (32-36) g/dL RDW Std Deviation (36.4-46.3) fL RDW Coeff of Aliyah (11.5-14.5) % Plt Count (130-400) K/uL MPV (7.4-10.4) fL Sodium (136-145) mmol/L Potassium (3.5-5.1) mmol/L Chloride (98-107) mmol/L Carbon Dioxide (21-32) mmol/L Anion Gap (3-11) BUN (7-18) mg/dl Creatinine (0.6-1.4) mg/dl Est Cr Clr Drug Dosing ml/min Est GFR ( Amer) Est GFR (Non-Af Amer) BUN/Creatinine Ratio (10-20) Glucose (70-99) mg/dl POC Glucose 143 H 135 H (70-99) Calcium (8.5-10.1) mg/dl Total Bilirubin (0.2-1) mg/dl AST (15-37) U/L ALT (12-78) U/L Alkaline Phosphatase (45-117) U/L Total Protein (6.4-8.2) gm/dl Albumin (3.4-5.0) gm/dl Globulin (2.5-4.0) gm/dl Albumin/Globulin Ratio (0.9-2) Medications Administered Current Inpatient Medications Albuterol (Ventolin 0.083% 2.5mg/3ml) 2.5 mg NEB Q2H PRN PRN Reason: Shortness Of Breath Or Wheezing Stop: 09/19/19 21:22 Albuterol (Duoneb) 3 ml NEB Q8R [facility] Stop: 09/25/19 14:59 Last Admin: 08/30/19 07:13 Dose: 3 ml Documented by: Aspirin (Ecotrin Ectab) 81 mg PO DAILY [facility] Stop: 09/20/19 08:59 Last Admin: 08/30/19 09:08 Dose: 81 mg Documented by: Benzonatate (Tessalon Perle) 100 mg PO TID PRN PRN Reason: cough Stop: 09/22/19 13:59 Budesonide (Pulmicort Respules) 0.25 mg NEB DAILY [facility] Stop: 09/25/19 08:59 Last Admin: 08/30/19 07:13 Dose: Not Given Documented by: Dextrose (Dextrose 50%) 25 - 50 ml IV UD PRN; Protocol PRN Reason: Hypoglycemia Protocol Stop: 09/19/19 21:22 Last Admin: 08/25/19 09:40 Dose: 25 ml Documented by: Ferrous Sulfate (Feosol) 325 mg PO DAILY [facility] Stop: 09/20/19 08:59 Last Admin: 08/24/19 10:46 Dose: Not Given Documented by: Furosemide (Lasix) 40 mg PO QAM YARELY Stop: 09/27/19 07:14 Last Admin: 08/30/19 09:08 Dose: 40 mg Documented by: Glucagon (Glucagen) 1 mg SQ UD PRN; Protocol PRN Reason: Hypoglycemia Protocol Stop: 09/19/19 21:22 Glucose (Dex4 Glucose) 4 - 8 tabs PO UD PRN; Protocol PRN Reason: Hypoglycemia Protocol Stop: 09/19/19 21:22 Glucose (Glucose 40%) 15 - 30 gm PO UD PRN; Protocol PRN Reason: Hypoglycemia Protocol Stop: 09/19/19 21:22 Guaifenesin (Mucinex) 1,200 mg PO Q12 [facility] Stop: 09/22/19 20:59 Last Admin: 08/30/19 09:08 Dose: 1,200 mg Documented by: Heparin Sodium (Beef Lung) (Heparin Sod 10 Unit/Ml Flush) 5 ml FLUSH PRN PRN PRN Reason: Flush Stop: 09/25/19 23:00 Last Admin: 08/28/19 10:46 Dose: 15 ml Documented by: Famotidine 20 mg/ Syringe 5 mls @ 2.5 mls/min IV DAILY [facility] Stop: 09/25/19 07:59 Last Admin: 08/30/19 09:10 Dose: 2.5 mls/min Documented by: Norepinephrine Bitartrate 16 (mg/ Dextrose) 516 mls @ 1.772 mls/hr IV .Q24H YARELY; Protocol Stop: 09/23/19 02:59 Last Admin: 08/29/19 12:37 Dose: Not Given Documented by: Insulin Aspart (Novolog Flexpen) 0 units SC ACHS [facility] Stop: 09/26/19 07:29 Last Admin: 08/30/19 09:09 Dose: 5 units Documented by: Miscellaneous (Carbohydrates For Hypoglycemia) 15 - 30 gm PO UD PRN PRN Reason: Hypoglycemia Protocol Stop: 09/19/19 21:22 Miscellaneous Information (Consult Glycemic Management Pharmacy) 1 ea N/A UD PRN PRN Reason: Consult Stop: 09/20/19 11:46 Ondansetron HCl (Zofran) 4 mg IV Q6H PRN PRN Reason: Nausea Stop: 09/24/19 13:18 Last Admin: 08/25/19 14:13 Dose: 4 mg Documented by: Polyethylene Glycol (Miralax Powder Packet) 17 gm PO DAILY PRN PRN Reason: Constipation Stop: 09/21/19 09:41 Potassium Chloride (Klor-Con M20) 20 meq PO DAILY [facility] Stop: 09/20/19 08:59 Last Admin: 08/23/19 09:59 Dose: Not Given Documented by: Rivaroxaban (Xarelto) 15 mg PO QDD [facility] Stop: 09/21/19 16:29 Last Admin: 08/29/19 17:31 Dose: 15 mg Documented by: Vitamin D (Vitamin D3) 5,000 units PO DAILY [facility] Stop: 09/20/19 08:59 Last Admin: 08/24/19 09:36 Dose: Not Given Documented by: Resident Activity Tracking Resident Involvement: Resident Care Provided Care Provided: Adult Hospital Medicine
--- NOTE | 2019-08-30 13:33 | Billing Data ---
Date of Service August 29, 2019 Coding Level of Care Code 93240 Subseq Hosp Care Lvl 2
[2019-08-30] MEDS: RIVAROXABAN 15 MG TAB PO SCH (17:46)
[2019-08-31] MEDS: ACETAMINOPHEN 325 MG TAB PO PRN ×3 (01:16→21:29)
[2019-08-31] MEDS: NOREPINEPHRINE BIT INJ 16 MG in DEXTROSE 5% 500 ML IV SCH (06:15)
[2019-08-31 06:58] LABS: Hematocrit (blood only) 33.2 % (42-52); Hemoglobin 10.8 g/dL (14.0-18.0); Mean Corpuscular Hemoglobin 30.4 pg (25-34); Mean Corpuscular Hgb Conc 32.5 g/dL (32-36); Mean Corpuscular Volume 93.5 fL (80-100); Mean Platelet Volume 10.7 fL (7.4-10.4); Platelet Count 429 K/uL (130-400); RDW Standard Deviation 58.8 fL (36.4-46.3); Red Blood Count 3.55 M/uL (4.7-6.1); White Blood Count 19.14 K/uL (4.8-10.8)
[2019-08-31] MEDS: ALBUT/IPRATROP 3MG/0.5MG NEB 3 ML VIAL NEB SCH ×3 (07:14→22:17)
[2019-08-31] MEDS: BUDESONIDE 0.25 MG/2 ML VIAL (PULMICORT) NEB SCH (07:14)
[2019-08-31 07:28] LABS: Albumin Level 2.4 gm/dl (3.4-5.0); BUN Creatinine Ratio 37.2 (10-20); Calcium 8.2 mg/dl (8.5-10.1); Creatinine Clr Calc Pharmacy 39.1 ml/min; Est GFR (African American) 40.4; Est GFR (Non-African American) 34.8; Potassium 4.2 mmol/L (3.5-5.1)
[2019-08-31 07:31] LABS: Albumin Globulin Ratio 0.6 (0.9-2); Total Protein 6.4 gm/dl (6.4-8.2)
[2019-08-31 08:07] LABS: ALC (manual) 1.34 K/uL (1.2-3.4); ANC (manual) 15.66 K/uL (1.4-6.5); Lymphocytes # (manual) 1.34 K/uL (1.2-3.4); Metamyelocytes # (manual) 0.33 K/uL (0-0); Metamyelocytes % (manual) 1.7 %; Monocytes # (manual) 0.33 K/uL (0.11-0.59); Monocytes % (manual) 1.7 %; Myelocytes # (manual) 1.49 K/uL (0-0); Myelocytes % (manual) 7.8 %; Neutrophils # (manual) 15.66 K/uL (1.4-6.5); Neutrophils % (manual) 81.8 %
[2019-08-31] MEDS: guaiFENesin 600 MG TABCR PO SCH ×2 (08:17→21:26)
[2019-08-31] MEDS: INSULIN ASPART 100 UNITS/ML 3 ML PEN SC SCH ×4 (08:17→21:38)
[2019-08-31] MEDS: FUROSEMIDE 40 MG TAB PO SCH (08:18)
[2019-08-31] MEDS: ASPIRIN 81 MG ECTAB PO SCH (08:18)
[2019-08-31] MEDS: FAMOTIDINE 20 MG in SYRINGE 3 ML IV SCH (08:20)
--- NOTE | 2019-08-31 09:59 | Pharmacy Report ---
Pharmacy Glycemic Short Note 2 - Date of Service August 31, 2019 - Glycemic Short BSG Results (Last 24 hours): 08/30/19 08/30/19 08/30/19 11:26 16:37 16:39 Glucose POC Glucose 139 H 67 L* 79 08/30/19 08/31/19 08/31/19 20:21 06:39 07:13 Glucose 130 H POC Glucose 202 H 155 H OUTPATIENT ANTIDIABETIC REGIMEN: * glipizide 5mg daily * A1c: 5.6% 03/28/19 ASSESSMENT: 08/31 * Blood sugars ranging 67-202mg/dl over past 24 hours. * No basal insulin used, discontinued * Blood sugar of 67mg/dl prior to lunch yesterday, will loosen CR slightly. * No further changes needed in insulin regimen at this time. 08/28 * Pressor/inotrope support has been titrated off. Diet advanced. * Lavell received 9 units of bolus insulin over the past 24 hours - no basal. * BSGs ranged from 101-173 mg/dL. Fasting BSG acceptable. * No changes to insulin regimen at this time 08/27 * Insulin drip titrated off overnight. Patient was started on bolus insulin with Novolog. * Norepinephrine off. Patient tolerating full liquid diet. * Acceptable glycemic control since drip was turned off. Uncertain if patient will require basal insulin due to A1c of 6.0% and risk factors for insulin resistance are decreasing. I will enter a loose Lantus scale to be given if patient develops hyperglycemia. 08/26 * Insulin drip continues this AM, running at a stable rate of 2.4 units/hr with BSGs in mid-100s * Pressor/inotrope support continues at this time in the form of norepi + dobutamine (vaso has been weaned off) * Clear liquid diet ordered, however pt not tolerating PO well * Given ongoing pressor support and stable BSGs and insulin infusion rates - this therapy would be best suited for glycemic control at this time PLAN FOR INPATIENT GLYCEMIC CONTROL: * Hold outpatient oral diabetes medications * Bolus insulin * Goal range: 120 - 150 mg/dL * Correction factor: 25 mg/dl/unit * LOOSEN: Carb ratio: 1 unit for every 9 grams of CHO
--- NOTE | 2019-08-31 10:36 | Hospitalist Progress Note ---
Date of Service August 31, 2019 Assessment & Plan (1) Influenza A: Mr. Das is a 73yo M with a PMHx of CHF, type 2 diabetes, pAfib, CKD, dyslipidemia, hypertension, left bundle branch block, paroxysmal V. tach, and gout who has been admitted for septic shock in the setting of influenza A. He has been readmitted to the ICU for acute respiratory failure. He has been stable and off pressors for 36 hours he is been cleared to be downgraded to the PCU on 08/29. Acute respiratory failure 2/2 acute on chronic CHF with ARDS Resolving Worsened respiratory status following fluid overload, required intubation, now extubated. Serial chest x rays have shown improving pulmonary edema, right basilar densities, trace right pleural effusion persist -On 1L NC. -wean as tolerated Lasix 40 mg po daily -Cumulatively still +3.5 L throughout the hospital stay -In is matching outs, no need to increase Lasix -We will obtain daily weights to trend water balance -90.7kg Sepsis 2/2 influenza +/-superimposed pneumonia Resolved Flu A positive on admission, CT chest shows multifocal bronchopneumonia with component of pulmonary edema. Lactate 5.5, normalized 08/22. Completed course of Tamiflu, antibiotics, steroids. -Monitor fever curve -Remains afebrile -Supportive care as indicated -White blood cell count is actually trended up since 08/27 -Patient remains afebrile, improving work of breathing, no constitutional symptoms, not tachypneic and no longer tachycardic -For now we will monitor however if still elevated tomorrow we will consider procalcitonin -Given her urinary retention, and elevated white count obtained a UA and sent for culture Urinary retention Patient had a catheter while in the ICU. 08/31 Has reported inability to void for the last 24 hours, this is likely secondary to bladder spasm from indwelling Recinos. 2 undocumented voids s/p recinos removal on 08/29 -Bladder scan this morning demonstrated 900 cc -Patient straight cath for 1000 cc this morning -PRN bladder scanning and straight cath for greater than 500 cc ordered -We will monitor for resumption of normal micturition if no improvement in the next 24 hours we will consult urology Systolic CHF, acute on chronic CHF Echo 06/18 showed EF 20-25% with anterior wall akinesis. CT chest, CXR suggestive of fluid overload, BNP elevated. Initially requiring pressor support, vasopressin and levophed D/C'd 08/27 dobutamine d/c'd today Continue aspirin V. tach/PAF/LBBB Status post pacemaker with AICD, ~25 beat of VTach during admission, AICD did not register/fire. Cardiology interrogated, feel AICD response was appropriate given the length and rate. 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 (2) ICD (implantable cardioverter-defibrillator) in place: (3) Atrial fibrillation: (4) Chronic kidney disease, stage 3 (moderate): (5) Diabetes mellitus type 2 with complications: (6) Dyslipidemia: (7) Gout: (8) Hypertension: (9) Left bundle branch block (LBBB): (10) Paroxysmal ventricular tachycardia: Supervising Physician Co-Signing Physician Notes Patient seen and examined independently of PGY-2 Dr. Lee. Agree with history, exam findings, assessment and plan of care as outlined. Feeling well-- off supplemental O2. Did have some issues with urinary retention yesterday and today. Bladder scanned for >500 and needed to be straight cathed. Recinos removed when he was transferred from ICU. No hx of BPH or prior urinary retention. Vital signs and nursing notes reviewed. Lungs with basilar crackles still. 1. septic shock and acute resp failure 2/2 flu A, multifocal pneumonia. Completed course of tamiflu, antibiotics and steroids. Off supplemental O2. 2. chronic systolic CHF. careful fluid status monitoring. Continue Lasix 40mg po qd. I/O's, daily weights. 3. hyponatremia resolved. 4. Afib. Rate controlled. AC. 5. ROGELIO on CKD. Follow carefully in the setting of fluids and diuresis. 6. leukocytosis, was trending down, but now 17-->19. Monitor carefully for signs of infection. 6. Urinary retention s/p recinos removal. Bladder scan and straight cath, can try alpha beatriz as well with careful attention to his BPs. Dispo: pending ability to urinate on his own. Subjective Patient sitting upright in bed this morning in no acute distress. Patient rep orts no acute events overnight. Patient reports he has not been able to void since yesterday afternoon, obtained a bladder scan this morning demonstrated 900 mils. Otherwise patient is tolerating his diet, having bowel movements, and sleeping well. Acute concerns relate to his inability to void, all questions answered Physical Exam Physical Exam: General:In no acute distress HEENT: Normocephalic atraumatic Neck: Trachea midline, normal to visual inspection, Cardiac: irregularly irregular rhythm, rate controlled, I did not appreciate any significant murmurs, rubs, gallops, 1+ pedal edema bilaterally, negative calf tenderness Respiratory: Clear to auscultation bilaterally without significant wheezes, rales, rhonchi on 1 L of oxygen per nasal cannula GI: Soft, nontender, nondistended, bowel sounds present Neuro: Alert and oriented Psych: Calm, cooperative Results & Data Vital Signs (Past 12 Hours) Vital Signs Temp Pulse Pulse Resp BP BP Pulse Ox 08/31/19 07:43 36.6 C 72 18 108/53 L 98 08/31/19 07:15 67 16 98 08/31/19 04:44 36.4 C L 94 H 18 102/58 L 100 08/30/19 23:03 36.3 C L 81 21 107/56 L 97 08/30/19 22:48 86 20 95 Laboratory Results 08/31/19 08/31/19 08/31/19 Range/Units 07:13 06:39 06:39 WBC 19.14 H (4.8-10.8) K/uL RBC 3.55 L (4.7-6.1) M/uL Hgb 10.8 L (14.0-18.0) g/dL Hct 33.2 L (42-52) % MCV 93.5 (80-100) fL MCH 30.4 (25-34) pg MCHC 32.5 (32-36) g/dL RDW Std Deviation 58.8 H (36.4-46.3) fL RDW Coeff of Aliyah 17.0 H (11.5-14.5) % Plt Count 429 H (130-400) K/uL MPV 10.7 H (7.4-10.4) fL Neutrophils % (Manual) 81.8 % Lymphocytes % (Manual) 7.0 % Monocytes % (Manual) 1.7 % Metamyelocytes % (Man) 1.7 % Myelocytes % (Man) 7.8 % Neutrophils # (Manual) 15.66 H (1.4-6.5) K/uL Total Absolute Neuts 15.66 H (1.4-6.5) K/uL Lymphocytes # (Manual) 1.34 (1.2-3.4) K/uL Total Abs Lymphocytes 1.34 (1.2-3.4) K/uL Monocytes # (Manual) 0.33 (0.11-0.59) K/uL Metamyelocytes # (Man) 0.33 H (0-0) K/uL Myelocytes # (Manual) 1.49 H (0-0) K/uL Sodium 135 L (136-145) mmol/L Potassium 4.2 (3.5-5.1) mmol/L Chloride 104 (98-107) mmol/L Carbon Dioxide 24 (21-32) mmol/L Anion Gap 8.0 (3-11) BUN 69 H (7-18) mg/dl Creatinine 1.85 H (0.6-1.4) mg/dl Est Cr Clr Drug Dosing 39.1 ml/min Est GFR ( Amer) 40.4 Est GFR (Non-Af Amer) 34.8 BUN/Creatinine Ratio 37.2 H (10-20) Glucose 130 H (70-99) mg/dl POC Glucose 155 H (70-99) Calcium 8.2 L (8.5-10.1) mg/dl Total Bilirubin 1.0 (0.2-1) mg/dl AST 36 (15-37) U/L ALT 227 H (12-78) U/L Alkaline Phosphatase 64 (45-117) U/L Total Protein 6.4 (6.4-8.2) gm/dl Albumin 2.4 L (3.4-5.0) gm/dl Globulin 4.0 (2.5-4.0) gm/dl Albumin/Globulin Ratio 0.6 L (0.9-2) 08/30/19 08/30/19 08/30/19 Range/Units 20:21 16:39 16:37 WBC (4.8-10.8) K/uL RBC (4.7-6.1) M/uL Hgb (14.0-18.0) g/dL Hct (42-52) % MCV (80-100) fL MCH (25-34) pg MCHC (32-36) g/dL RDW Std Deviation (36.4-46.3) fL RDW Coeff of Aliyah (11.5-14.5) % Plt Count (130-400) K/uL MPV (7.4-10.4) fL Neutrophils % (Manual) % Lymphocytes % (Manual) % Monocytes % (Manual) % Metamyelocytes % (Man) % Myelocytes % (Man) % Neutrophils # (Manual) (1.4-6.5) K/uL Total Absolute Neuts (1.4-6.5) K/uL Lymphocytes # (Manual) (1.2-3.4) K/uL Total Abs Lymphocytes (1.2-3.4) K/uL Monocytes # (Manual) (0.11-0.59) K/uL Metamyelocytes # (Man) (0-0) K/uL Myelocytes # (Manual) (0-0) K/uL Sodium (136-145) mmol/L Potassium (3.5-5.1) mmol/L Chloride (98-107) mmol/L Carbon Dioxide (21-32) mmol/L Anion Gap (3-11) BUN (7-18) mg/dl Creatinine (0.6-1.4) mg/dl Est Cr Clr Drug Dosing ml/min Est GFR ( Amer) Est GFR (Non-Af Amer) BUN/Creatinine Ratio (10-20) Glucose (70-99) mg/dl POC Glucose 202 H 79 67 L* (70-99) Calcium (8.5-10.1) mg/dl Total Bilirubin (0.2-1) mg/dl AST (15-37) U/L ALT (12-78) U/L Alkaline Phosphatase (45-117) U/L Total Protein (6.4-8.2) gm/dl Albumin (3.4-5.0) gm/dl Globulin (2.5-4.0) gm/dl Albumin/Globulin Ratio (0.9-2) 08/30/19 Range/Units 11:26 WBC (4.8-10.8) K/uL RBC (4.7-6.1) M/uL Hgb (14.0-18.0) g/dL Hct (42-52) % MCV (80-100) fL MCH (25-34) pg MCHC (32-36) g/dL RDW Std Deviation (36.4-46.3) fL RDW Coeff of Aliyah (11.5-14.5) % Plt Count (130-400) K/uL MPV (7.4-10.4) fL Neutrophils % (Manual) % Lymphocytes % (Manual) % Monocytes % (Manual) % Metamyelocytes % (Man) % Myelocytes % (Man) % Neutrophils # (Manual) (1.4-6.5) K/uL Total Absolute Neuts (1.4-6.5) K/uL Lymphocytes # (Manual) (1.2-3.4) K/uL Total Abs Lymphocytes (1.2-3.4) K/uL Monocytes # (Manual) (0.11-0.59) K/uL Metamyelocytes # (Man) (0-0) K/uL Myelocytes # (Manual) (0-0) K/uL Sodium (136-145) mmol/L Potassium (3.5-5.1) mmol/L Chloride (98-107) mmol/L Carbon Dioxide (21-32) mmol/L Anion Gap (3-11) BUN (7-18) mg/dl Creatinine (0.6-1.4) mg/dl Est Cr Clr Drug Dosing ml/min Est GFR ( Amer) Est GFR (Non-Af Amer) BUN/Creatinine Ratio (10-20) Glucose (70-99) mg/dl POC Glucose 139 H (70-99) Calcium (8.5-10.1) mg/dl Total Bilirubin (0.2-1) mg/dl AST (15-37) U/L ALT (12-78) U/L Alkaline Phosphatase (45-117) U/L Total Protein (6.4-8.2) gm/dl Albumin (3.4-5.0) gm/dl Globulin (2.5-4.0) gm/dl Albumin/Globulin Ratio (0.9-2) Medications Administered Current Inpatient Medications Acetaminophen (Tylenol) 650 mg PO Q4H PRN PRN Reason: Pain or Fever Stop: 09/30/19 00:26 Last Admin: 08/31/19 01:16 Dose: 650 mg Documented by: Albuterol (Ventolin 0.083% 2.5mg/3ml) 2.5 mg NEB Q2H PRN PRN Reason: Shortness Of Breath Or Wheezing Stop: 09/19/19 21:22 Last Admin: 08/30/19 22:47 Dose: 2.5 mg Documented by: Albuterol (Duoneb) 3 ml NEB Q8R [facility] Stop: 09/25/19 14:59 Last Admin: 08/31/19 07:14 Dose: 3 ml Documented by: Aspirin (Ecotrin Ectab) 81 mg PO DAILY [facility] Stop: 09/20/19 08:59 Last Admin: 08/31/19 08:18 Dose: 81 mg Documented by: Benzonatate (Tessalon Perle) 100 mg PO TID PRN PRN Reason: cough Stop: 09/22/19 13:59 Budesonide (Pulmicort Respules) 0.25 mg NEB DAILY [facility] Stop: 09/25/19 08:59 Last Admin: 08/31/19 07:14 Dose: 0.25 mg Documented by: Dextrose (Dextrose 50%) 25 - 50 ml IV UD PRN; Protocol PRN Reason: Hypoglycemia Protocol Stop: 09/19/19 21:22 Last Admin: 08/25/19 09:40 Dose: 25 ml Documented by: Ferrous Sulfate (Feosol) 325 mg PO DAILY [facility] Stop: 09/20/19 08:59 Last Admin: 08/24/19 10:46 Dose: Not Given Documented by: Furosemide (Lasix) 40 mg PO QAM [facility] Stop: 09/27/19 07:14 Last Admin: 08/31/19 08:18 Dose: 40 mg Documented by: Glucagon (Glucagen) 1 mg SQ UD PRN; Protocol PRN Reason: Hypoglycemia Protocol Stop: 09/19/19 21:22 Glucose (Dex4 Glucose) 4 - 8 tabs PO UD PRN; Protocol PRN Reason: Hypoglycemia Protocol Stop: 09/19/19 21:22 Glucose (Glucose 40%) 15 - 30 gm PO UD PRN; Protocol PRN Reason: Hypoglycemia Protocol Stop: 09/19/19 21:22 Guaifenesin (Mucinex) 1,200 mg PO Q12 [facility] Stop: 09/22/19 20:59 Last Admin: 08/31/19 08:17 Dose: 1,200 mg Documented by: Heparin Sodium (Beef Lung) (Heparin Sod 10 Unit/Ml Flush) 5 ml FLUSH PRN PRN PRN Reason: Flush Stop: 09/25/19 23:00 Last Admin: 08/28/19 10:46 Dose: 15 ml Documented by: Famotidine 20 mg/ Syringe 5 mls @ 2.5 mls/min IV DAILY [facility] Stop: 09/25/19 07:59 Last Admin: 08/31/19 08:20 Dose: 2.5 mls/min Documented by: Insulin Aspart (Novolog Flexpen) 0 units SC ACHS [facility] Stop: 09/26/19 07:29 Last Admin: 08/31/19 08:17 Dose: 3 units Documented by: Miscellaneous (Carbohydrates For Hypoglycemia) 15 - 30 gm PO UD PRN PRN Reason: Hypoglycemia Protocol Stop: 09/19/19 21:22 Miscellaneous Information (Consult Glycemic Management Pharmacy) 1 ea N/A UD PRN PRN Reason: Consult Stop: 09/20/19 11:46 Ondansetron HCl (Zofran) 4 mg IV Q6H PRN PRN Reason: Nausea Stop: 09/24/19 13:18 Last Admin: 08/25/19 14:13 Dose: 4 mg Documented by: Polyethylene Glycol (Miralax Powder Packet) 17 gm PO DAILY PRN PRN Reason: Constipation Stop: 09/21/19 09:41 Potassium Chloride (Klor-Con M20) 20 meq PO DAILY [facility] Stop: 09/20/19 08:59 Last Admin: 08/23/19 09:59 Dose: Not Given Documented by: Rivaroxaban (Xarelto) 15 mg PO QDD [facility] Stop: 09/21/19 16:29 Last Admin: 08/30/19 17:46 Dose: 15 mg Documented by: Vitamin D (Vitamin D3) 5,000 units PO DAILY [facility] Stop: 09/20/19 08:59 Last Admin: 08/24/19 09:36 Dose: Not Given Documented by: Resident Activity Tracking Resident Involvement: Resident Care Provided Care Provided: Adult Hospital Medicine
[2019-08-31] MEDS: RIVAROXABAN 15 MG TAB PO SCH (15:59)
[2019-08-31 22:55] LABS: Appearance Urine Clear (Clear); Bacteria Urine Automated Negative (Negative); Bilirubin Urine Negative (Negative); Blood Urine 3+ (Negative); Color Urine Yellow; Epithelial Cell Urine Auto 0-5 /lpf (0-5); Glucose Urine UA Negative (Negative); Ketones Urine Negative (Negative); Leukocyte Esterase Urine Negative (Negative); Nitrite Urine Negative (Negative); Protein Urine Negative (Negative); Specific Gravity Urine 1.016 (1.000-1.030); Urobilinogen Urine Negative (Negative)
[2019-09-01] MEDS: ACETAMINOPHEN 325 MG TAB PO PRN (01:48)
[2019-09-01 05:57] LABS: Hematocrit (blood only) 31.5 % (42-52); Hemoglobin 10.2 g/dL (14.0-18.0); Mean Corpuscular Hgb Conc 32.4 g/dL (32-36); Mean Corpuscular Volume 92.6 fL (80-100); Mean Platelet Volume 10.7 fL (7.4-10.4); Platelet Count 458 K/uL (130-400); RDW Coefficient of Variation 17.2 % (11.5-14.5); RDW Standard Deviation 58.6 fL (36.4-46.3)
[2019-09-01 06:22] LABS: Basophils # (auto) 0.02 K/uL (0-0.2); Basophils % (auto) 0.1 %; Eosinophils # (auto) 0.09 K/uL (0-0.5); Eosinophils % (auto) 0.5 %; Immature Granulocytes # (auto) 1.52 K/uL (0.00-0.02); Immature Granulocytes % (auto) 8.8 %; Lymphocytes # (auto) 0.92 K/uL (1.2-3.4); Lymphocytes % (auto) 5.3 %; Monocytes # (auto) 0.83 K/uL (0.11-0.59); Monocytes % (auto) 4.8 %; Neutrophils # (auto) 13.92 K/uL (1.4-6.5); Neutrophils % (auto) 80.5 %; Schistocytes Occasional
[2019-09-01 06:31] LABS: BUN Creatinine Ratio 34.1 (10-20); Calcium 8.3 mg/dl (8.5-10.1); Creatinine Clr Calc Pharmacy 40.4 ml/min; Est GFR (Non-African American) 36.3; Potassium 3.7 mmol/L (3.5-5.1)
[2019-09-01] MEDS: ALBUT/IPRATROP 3MG/0.5MG NEB 3 ML VIAL NEB SCH (07:29)
[2019-09-01] MEDS: BUDESONIDE 0.25 MG/2 ML VIAL (PULMICORT) NEB SCH (07:31)
[2019-09-01] MEDS: guaiFENesin 600 MG TABCR PO SCH (09:29)
[2019-09-01] MEDS: ASPIRIN 81 MG ECTAB PO SCH (09:29)
[2019-09-01] MEDS: FUROSEMIDE 40 MG TAB PO SCH (09:31)
[2019-09-01] MEDS: INSULIN ASPART 100 UNITS/ML 3 ML PEN SC SCH ×2 (09:33→13:02)
[2019-09-01] MEDS: FAMOTIDINE 20 MG in SYRINGE 3 ML IV SCH (09:45)
[2019-09-01] MEDS: POTASSIUM CHLORIDE 20 MEQ TABCR PO SCH (10:50)
[2019-09-01] MEDS ORDERED: INFLUENZA Vaccine HIGH DOSE 65+yrs 0.5 mL Syr IM ONE (11:00)
--- NOTE | 2019-09-01 12:12 | Pharmacy Report ---
Pharmacy Glycemic Short Note 2 - Date of Service September 01, 2019 - Glycemic Short BSG Results (Last 24 hours): 08/31/19 08/31/19 09/01/19 17:19 21:03 04:58 Glucose 94 POC Glucose 100 H 99 09/01/19 09/01/19 09:32 12:02 Glucose POC Glucose 164 H 97 OUTPATIENT ANTIDIABETIC REGIMEN: * glipizide 5mg daily * A1c: 5.6% 03/28/19 ASSESSMENT: 09/01: * Lavell received 13 units of Novolog yesterday with excellent BSG control. No basal insulin. * BSG trending downward throughout the day. I will further loosen carb coverage. 08/31 * Blood sugars ranging 67-202mg/dl over past 24 hours. * No basal insulin used, discontinued * Blood sugar of 67mg/dl prior to lunch yesterday, will loosen CR slightly. * No further changes needed in insulin regimen at this time. 08/28 * Pressor/inotrope support has been titrated off. Diet advanced. * Lavell received 9 units of bolus insulin over the past 24 hours - no basal. * BSGs ranged from 101-173 mg/dL. Fasting BSG acceptable. * No changes to insulin regimen at this time 08/27 * Insulin drip titrated off overnight. Patient was started on bolus insulin with Novolog. * Norepinephrine off. Patient tolerating full liquid diet. * Acceptable glycemic control since drip was turned off. Uncertain if patient will require basal insulin due to A1c of 6.0% and risk factors for insulin resistance are decreasing. I will enter a loose Lantus scale to be given if patient develops hyperglycemia. 08/26 * Insulin drip continues this AM, running at a stable rate of 2.4 units/hr with BSGs in mid-100s * Pressor/inotrope support continues at this time in the form of norepi + dobutamine (vaso has been weaned off) * Clear liquid diet ordered, however pt not tolerating PO well * Given ongoing pressor support and stable BSGs and insulin infusion rates - this therapy would be best suited for glycemic control at this time PLAN FOR INPATIENT GLYCEMIC CONTROL: * Hold outpatient oral diabetes medications * Bolus insulin * Goal range: 120 - 150 mg/dL * Correction factor: 25 mg/dl/unit * LOOSEN: Carb ratio: 1 unit for every 12 grams of CHO
--- NOTE | 2019-09-01 12:29 | Discharge Summary ---
Date of Service September 01, 2019 Admission HPI Per Admitting Provider 73-year-old male presented to the emergency room complaining of hypoglycemic episodes. And felt shaky earlier today. Home blood sugar was 59. Was able to tolerate food without any emesis. Is on glipizide normally and has not missed any doses. Otherwise, he has no overt concerns. - Of note, patient recently has been treated for pneumonia. He is followed by pulmonology who obtained a CT scan a couple days ago suggestive of multifocal pneumonia. Has been on azithromycin for 2 days. Presently he denies any overt shortness of breath, pleuritic pain, or chest pain. - Patient's is currently an inpatient with influenza. He was started on Tamiflu on day prior to admit for prophylaxis. - Patient also notes on review of systems having loose nonbloody stools for the past 2 weeks. Patient attributes it to recent antibiotics. Denies any overt abdominal pain. - Past medical history includes hypertension, hyperlipidemia, systolic congestive heart failure, ischemic cardiomyopathy, paroxysmal ventricular tachycardia with ICD, pneumonia (May 2019), "chronic Lyme disease", anemia, CKD stage III, diabetes type 2, gout, left bundle branch block, goiter, vitamin D deficiency - Past surgical history includes hand, ankle, foot, and knee surgery. - Social history includes former 30-40 pack/year smoker. Drinks wine. Lives at home with spouse. Admission Exam Per Admitting Provider GENERAL: Awake, alert, appears remarkably well given his clinical picture, does not appear in acute distress (respiratory or otherwise). HENT: Normocephalic, atraumatic. Oropharynx unremarkable. EYES: Normal conjunctiva. Sclera non-icteric. NECK: Inspection normal. Supple and full ROM. No nuchal rigidity. CARDIAC: +S1S2 RRR, no murmurs. Pacemaker in chest. RESPIRATORY: Diffuse inspiratory and expiratory wheezing throughout. No appreciable rales. No present cough in room. Is on room air. GI: +BS, soft, non-distended. No tenderness to palpation. No rebound or guarding. EXTREMITIES: No pedal edema or calf tenderness. Moving all extremities naturally and easily. NEURO: No gross neuro deficits. Principal Diagnosis Acute respiratory distress syndrome in the setting of sepsis secondary to influenza with superimposed pneumonia and chronic congestive heart failure Discharge Exam General:In no acute distress HEENT: Normocephalic atraumatic Neck: Trachea midline, normal to visual inspection, Cardiac: irregularly irregular rhythm, rate controlled, I did not appreciate any significant murmurs, rubs, gallops, 1+ pedal edema bilaterally, negative calf tenderness Respiratory: Clear to auscultation bilaterally without significant wheezes, rales, rhonchi on 1 L of oxygen per nasal cannula GI: Soft, nontender, nondistended, bowel sounds present Neuro: Alert and oriented Psych: Calm, cooperative Discharge Data Allergies Allergy/AdvReac Type Severity Reaction Status Date / Time Lofjwtz-[id number]-Zpl Reductase Allergy Intermediate myalgia Verified 08/23/19 09:51 Inhibitor bee venom protein (honey bee) Allergy Unknown yellow Verified 08/20/19 18:24 jacket Penicillins Allergy Unknown Unknown Verified 08/23/19 09:51 levofloxacin AdvReac Intermediate nightmares Verified 08/20/19 18:24 Consultations 08/20/19 19:19 ED Decision to Admit Stat 08/20/19 21:14 Consult Paper Products Printer Routine 08/20/19 21:23 Consult Case Management - Discharge Planning Routine Consult Paper Products Printer Routine 08/23/19 07:25 Consult Cardiology Routine 08/29/19 10:18 Consult Palliative Care Routine Ordered Studies 08/24/19 01:28 US point of care ultrasound Routine Hospital Course (1) Influenza A: Mr. Das is a 73yo M with a PMHx of CHF, type 2 diabetes, pAfib, CKD, dyslipidemia, hypertension, left bundle branch block, paroxysmal V. tach, and g out who has been admitted for septic shock in the setting of influenza A. He has been readmitted to the ICU for acute respiratory failure. He has been stable and off pressors for 36 hours he is been cleared to be downgraded to the PCU on 08/29. Acute respiratory failure 2/2 acute on chronic CHF with ARDS Resolved Worsened respiratory status following fluid overload, required intubation, extubated, downgraded from the ICU on 08/29. Serial chest x rays have shown improving pulmonary edema, right basilar densities, trace right pleural effusion persist. Clinically he is significantly improved, was previously requiring 2 L of oxygen, now saturating well on room air. Patient reports no respiratory symptoms. Sepsis 2/2 influenza +/-superimposed pneumonia Resolved Flu A positive on admission, CT chest shows multifocal bronchopneumonia with component of pulmonary edema. Lactate 5.5, normalized 08/22. Completed course of Tamiflu, antibiotics, steroids. Since discharge from the ICU he has remained AFVSS. His white count was trending up peaked at 19 today is 17, and trending down. Clinically he is stable with no signs or symptoms of infection. UA obtained on 08/31 was negative. -Monitor fever curve Urinary retention Patient had a catheter while in the ICU. 08/31 Has reported inability to void for the last 24 hours, this is likely secondary to bladder spasm from indwelling Recinos. 2 undocumented voids s/p recinos removal on 08/29. Bladder scan on the morning of 08/31 demonstrated 900 cc of retained urine, patient straight cathed for 1 L. Later that day he was able to void on his own only small amounts, expect this to continue to improve with time. Advised patient of concerning signs and symptoms including but not limited to bladder fullness, pressure, fever, chills, other concerning signs or symptoms, should these recur he should return to the ER for further evaluation and management. Systolic CHF, acute on chronic CHF Echo 06/18 showed EF 20-25% with anterior wall akinesis. CT chest, CXR suggestive of fluid overload, BNP elevated. Initially requiring pressor support, with vasopressin Levophed and dobutamine while in the ICU, he was successfully weaned from them and all pressors were stopped on 08/28. His Lasix dose was reduced from 40 mg twice daily to 40 mg daily, his I's and O's were closely monitored and ins matched out. We obtain daily weights and he remains around 90 kg this appears to be his dry weight. On discharge continue Lasix 40 mg p.o. daily Lasix 40 mg po daily V. tach/PAF/LBBB Status post pacemaker with AICD, ~25 beat of VTach during admission, AICD did not register/fire. Cardiology interrogated, feel AICD response was appropriate given the length and rate. BMP was trended daily and electrolytes were optimized as indicated Continue Xarelto Continue aspirin as above Metoprolol held on discharge secondary to hypotension Transaminitis, hyperbilirubinemia, stabilized Likely 2/2 shock liver in the setting of sepsis while in the ICU. Resolved on 08/31 ROGELIO on CKD - improving Baseline creatinine 1.2 Creatinine increased to 2.52->2.12->1.85->1.79 Given his prolonged ICU stay, and pressor support there may be some longstanding kidney damage, would recommend obtaining an outpatient BMP in 1 week Type 2 diabetes mellitus, presentation with hypoglycemia Initial presentation suspect hypoglycemia in the setting of acute illness in combination with [employer] glipizide Glycemic consult and pharmacy managed his blood sugar throughout the admission Resume home medications on discharge FEN/GI: Clear liquids, fluid limit 1500cc; DVT prophylaxis: Continue Xarelto Dispo:Downgrade to [facility] with telemetry Code: No CPR, Intubation okay. (2) ICD (implantable cardioverter-defibrillator) in place: (3) Atrial fibrillation: (4) Chronic kidney disease, stage 3 (moderate): (5) Diabetes mellitus type 2 with complications: (6) Dyslipidemia: (7) Gout: (8) Hypertension: (9) Left bundle branch block (LBBB): (10) Paroxysmal ventricular tachycardia: Total Time Total Time Spent Total Time Spent (In Minutes): See attending documentation Discharge Plan Discharge Items Patient Disposition: Home - Home Health Services Reason For Visit: HYPOTENSION, FLU A, PNEUMONIA Discharge Diagnosis: Acute respiratory distress syndrome in the setting of sepsis secondary to influenza with superimposed pneumonia and chronic congestive heart failure Activity: As commented below Activity Comment: Per home PT/OT Non-emergency contact: Primary Care Provider Call non-emergency contact if: you have any medication questions, your symptoms worsen, your pain is worsening and you have a fever Follow-up/Referrals: Leonor Day DO [Primary Care Provider] - Diet: Carb Consistent or DM2 Fluids: 1500ml (6 cups) Addtl Attending Provider Instructions: Care instructions: You were admitted to [facility] for treatment of sepsis secondary to influenza and superimposed pneumonia which subsequently progressed to acute respiratory distress syndrome requiring ICU admission and pressor support. While hospitalized you received a course of Tamiflu, antibiotics, steroids. Upon discharge from the ICU your respiratory status improved, as did your fluid status. We made some medication changes on discharge. -Lasix (furosemide) 40 mg daily -You may still use metolazone per prior instructions -Your PCP should obtain a electrolyte panel in 1 week to follow-up your creatinine Urinary retention On 08/31 you experience urinary retention it was straight cathed for 1 L. Since that time you been able to void on your own although small amounts. Should you become unable to void experience suprapubic pressure or pain, fever, chills, or other concerning signs or symptoms is recommended the return to the ER for further evaluation and management. A discharge summary will be sent to your primary care physician to ensure continuity of care. Please bring this discharge summary with you to your next office appointment so that your provider can review it at that time. Follow-up appointments: - Keep all your follow-up appointments as already scheduled. If you cannot make an appointment, notify your provider. - Please call to request a follow-up appointment with your primary care physician within one week of discharge. Please let us know if you are unable to obtain an appointment Medications: - Your medication list has been reviewed and reconciled upon discharge to ensure accuracy and continuity of care. - You are provided with a list of all your current medications at this time. Please review this list closely and make note of any changes. - Please take all of your medications exactly as prescribed. - Tell your primary care provider if you cannot afford your medications. - Call your primary care provider if you are having any side effects or any other problems. - Call your primary care provider before taking any over the counter medications or supplements, including herbals and vitamins, because some of these may interact with your current medications and/or make your symptoms worse. Symptoms: Please call your primary care provider for symptoms including, but not limited to: fevers (temperatures greater than 100.4), chills, intractable nausea or vomiting, diarrhea, rash, shortness of breath, bleeding, pain, or if you experience any worsening of the symptoms that brought you to the hospital. For EMERGENCY and VERY SERIOUS health-related issues, such as chest pain, shortness of breath, or sudden onset of the symptoms that brought you to the hospital, you may need to call 911 or go directly to the Emergency Room It has been our privilege to take care of you during your hospital stay. And Above All Else Feel Better! Best Wishes, Ki Lee MD PGY2 Resident, Family & Community Medicine [facility] - [address], [address] MC: [address] [place] [address], [place] [address] Pending Studies at Discharge: No Stand-Alone Forms: My [facility], Smoking Cessation Medications and DC Order Prescriptions: New furosemide 40 mg Tablet 40 mg PO QAM 30 Days Qty: 30 RF: 0 Continued Entresto 24-26 mg tablet 1 tab PO BID Qty: 180 RF: 0 glipizide 5 mg tablet 5 mg PO DAILY Qty: 90 RF: 1 nitroglycerin 400 mcg/spray spray,non-aerosol 1 sprays SL .COMPLEX PRN (Reason: chest pain) Qty: 4.9 RF: 0 metoprolol succinate 25 mg tablet extended release 24 hr 25 mg PO DAILY Qty: 90 RF: 0 potassium chloride 20 mEq tablet extended release 20 meq PO DAILY Qty: 90 RF: 0 metolazone 2.5 mg tablet 2.5 mg PO DAILY RF: 0 ferrous sulfate [Feosol] 325 mg (65 mg iron) tablet 325 mg PO DAILY RF: 0 cholecalciferol (vitamin D3) 5,000 unit capsule 5,000 units PO DAILY RF: 0 Trelegy Ellipta 100-62.5-25 mcg blister with device 1 puffs INH DAILY Qty: 28 RF: 2 Xarelto 15 mg tablet 15 mg PO QPM RF: 0 aspirin [Aspir-81] 81 mg Tablet,Delayed Release (Dr/Ec) 81 mg PO DAILY RF: 0 loperamide [Imodium A-D] 2 mg Tablet 2 mg PO DIRECTED PRN (Reason: Diarrhea) RF: 0 Discontinued azithromycin 500 mg tablet 500 mg PO DAILY 5 Days Qty: 5 RF: 0 oseltamivir [Tamiflu] 75 mg capsule 75 mg PO DAILY 14 Days Qty: 14 RF: 0 furosemide [Lasix] 40 mg tablet 40 mg PO BID Qty: 180 RF: 0 Discharge Orders: Discharge Order (Routine); Ordered 09/01/19 Ordered By: Ki Wray/Other Patient Handouts: Flu Admission Data Admit Date/Time: 08/20/19 20:14 Attending Provider: Gracie Mcdonald Admit Provider: Marshall Brooks Primary Care Provider: Leonor Day Other Providers: Duy Mo ; Era Newman ; Amol Mendoza ; [facility] ; Ghazal Lee ; Dilip Victoria. ; Philomena Welsh Other Interventions: Discharge Summary Assessment (RN) Last Done: 09/01/19 13:30 DC Date/Time DO NOT enter until pt leaves facility: 09/01/19 14:51 Supervising Physician Co-Signing Physician Notes Patient seen and examined independently of PGY-2 Dr. Lee. Agree with history, exam findings, assessment and plan of care as outlined. Mr. Das is a 73 year old male admitted with septic shock secondary to influenza. Had a complex hospital course requiring ICU stay for pressures and found to have superimposed bacterial pneumonia. He completed a course of tamiflu, antibiotics and steroids. He has been weaned off all supplemental oxygen. His fluid status was tenuous in conjunction with his soft blood pressures. His home lasix dose was decreased to daily instead of twice daily. His ROGELIO and transaminitis has resolved. After his recinos catheter was removed upon transfer out of the ICU, he did experience urinary retention. He was able to void on his own on the day of discharge, although had elevated PVRs. No signs of urinary tract infection. Suspect that this will continue to improve. Discussed trial of an alpha beatriz, although with his blood pressures being on the lower side, think that this is probably more of a risk than benefit for him. He has home PT/OT and nursing set up by our correctional case records supervisor. Close follow up with PCP. I personally spent 35 minutes discharge planning for this patient. Resident Activity Tracking Resident Involvement: Resident Care Provided Care Provided: Adult Hospital Medicine
--- NOTE | 2019-09-01 13:47 | Cardiology Progress Note ---
Date of Service September 01, 2019 Assessment & Plan (1) CHF (congestive heart failure): Well compensated at this time. He continues on Lasix 40 mg daily, but his typical dose at home is 40 mg b.i.d.. (2) ICD (implantable cardioverter-defibrillator) in place: Normally functioning biventricular ICD. (3) Atrial fibrillation: Currently in sinus rhythm. (4) Ischemic cardiomyopathy: The patient's metoprolol succinate and Entresto are currently on hold. (5) Left bundle branch block (LBBB): Chronic finding. (6) Paroxysmal ventricular tachycardia: No recent episodes. (7) Elevated troponin: Likely secondary to demand ischemia. (8) Hypotension: Resolved. Subjective The patient is resting comfortably in the bedside chair without complaints of chest pain or dyspnea. Physical Exam Physical Exam: In general is well-developed white male seen at bedside 2 complaints. HEENT exam is negative. Neck is supple with full carotid upstrokes. No obvious bruits. Jugular venous pressure is difficult to assess. Cardiovascular exam reveals a regular rhythm with distant heart sounds. No murmurs. Lungs are clear without rales, rhonchi or wheezes. Chest reveals a palpable device in the left subclavicular region. Abdomen is soft bruits extremities reveal no edema. Results & Data Vital Signs (Past 12 Hours) Vital Signs Temp Pulse Pulse Resp BP BP Pulse Ox 09/01/19 13:30 36.4 C L 76 81 17 108/63 99/50 L 95 09/01/19 09:32 108/63 09/01/19 07:42 36.4 C L 81 17 99/50 L 95 PG Care Time/CCT Total # of Minutes Spent Total Time Spent with Patient: Total time spent is greater than 50% in coordination of care (as documented) at patient's floor/unit and/or counseling patient: (1) CHF (congestive heart failure) Heart failure chronicity: acute on chronic Heart failure type: unspecified Qualified Code(s): I50.9 - Heart failure, unspecified
== END 2019-09-01 14:51 | disposition home health service (06) | DRG 871 ==
LOC: ED 17:35 → 1E 20:14 → SUATTDRO 20:14 → 1E 20:35 → 2E 08-23 15:34 → 1E 08-23 23:24 → 2S 08-29 11:26 → 3W 08-31 10:58

== ENCOUNTER 2019-12-20 09:36 | Inpatient (IN) ==
[2019-12-20 10:09] LABS: Basophils # (auto) 0.02 K/uL (0-0.2); Basophils % (auto) 0.1 %; Eosinophils # (auto) 0.01 K/uL (0-0.5); Eosinophils % (auto) 0.1 %; Hemoglobin 14.5 g/dL (14.0-18.0); Immature Granulocytes # (auto) 0.09 K/uL (0.00-0.02); Immature Granulocytes % (auto) 0.5 %; Lymphocytes # (auto) 0.72 K/uL (1.2-3.4); Lymphocytes % (auto) 4.1 %; Mean Corpuscular Hemoglobin 30.4 pg (25-34); Mean Corpuscular Volume 92.2 fL (80-100); Mean Platelet Volume 10.8 fL (7.4-10.4); Monocytes # (auto) 0.41 K/uL (0.11-0.59); Monocytes % (auto) 2.4 %; Neutrophils # (auto) 16.14 K/uL (1.4-6.5); Neutrophils % (auto) 92.8 %; Platelet Count 181 K/uL (130-400); RDW Coefficient of Variation 18.6 % (11.5-14.5); Red Blood Count 4.77 M/uL (4.7-6.1); White Blood Count 17.39 K/uL (4.8-10.8)
--- NOTE | 2019-12-20 10:09 | Emergency Department Note ---
Impression & Plan Weakness, Pneumonia, Hypoxia ED Provider Note Provider: Gomez Lopez MD DATE OF SERVICE: 12/20/2019 CHIEF COMPLAINT: Shortness of breath HISTORY OF PRESENT ILLNESS: Patient is a 74-year-old gentleman with a history of ischemic cardiomyopathy EF of 25% May 2019, CAD, atrial fibrillation, hypertension, hyperlipidemia, and chronic kidney disease presenting today via private vehicle complaining of shortness of breath. Patient was recently seen in the outpatient cardiology clinic and had his metoprolol reduced is complaining of some fatigue. Patient reports that over the week and became more short of breath. did call his doctor asking for home oxygen but stated he needed to be evaluated. and patient report that the patient has been experiencing worsening fatigue over the past week and for the last day or 2 been complaining of some shortness of breath. Reports he is sleeping these 20 hours a day. states she has been well in the last week or 2 and they have been quarantining and self isolating and no other sick contacts. Decreased food intake in this patient is actually been losing some weight. Patient denies any pain. Reports that the patient may be a little bit more confused over the last week but not currently. 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 States that while he is normally on Xarelto for the last 7 to 10 days has not been taking it as he cut himself shaving and had significant bleeding. reports the patient's had fairly consistent weakness symptoms of the past week. Pulse ox at home has been into the 70s. Noted worsening cyanosis of the fingers. Patient states he feels cold. Significant hospitalization in October for flu, pneumonia, sepsis, CHF exacerbation, and ARDS requiring intubation. Has been experience some persistent diarrhea over the last several months. Negative C. difficile testing 11 days ago. REVIEW OF SYSTEMS: A total of 10 review of systems was obtained and negative except as stated above in the HPI. PAST MEDICAL HISTORY: As noted above MEDICATIONS: Reviewed nursing notes and includes metoprolol, Lasix, Xarelto, metolazone, aspirin FMH: Heart disease SOCIAL HISTORY: Former smoker. . PHYSICAL EXAM: GENERAL: alert and oriented with eyes closed on the stretcher, appears fatigued initially on oxygen mask Head: normocephalic and atraumatic EYES: No injection, discharge or icterus. NECK: Trachea midline. Supple. ENT: Mucous membranes pink and moist. LUNGS: Airway patent. No retractions. A few slight crackles at the bases HEART: Regular rate and rhythm. No chest wall tenderness ABDOMEN: Soft and non-tender, without guarding or rebound. SKIN: Peripherally cool with some cyanosis of the fingers. EXTREMITIES: Without significant swelling of the lower extremities may be trace pedal edema bilaterally. No obvious deformity. NEUROLOGICAL: No focal deficits. No aphasia. No facial droop or slurred speech. EK bpm ventricularly paced. No PVCs. Similar to October 122019. No acute ischemic ST elevation. CONTINUOUS CARDIAC MONITORING: was ordered and showed a heart rate of bpm in Patient's hypertension was referred to the hospitalist HOSPITAL COURSE: [id number] Patient was first seen and H&P performed. [id number] Patient reassessed and updated. [facility] hospitalist paged Patient's laboratory studies and imaging reviewed. Differential includes Infection, dehydration, metabolic abnormality, hypo/hyp erglycemia, electrolyte disturbance, anemia, hypoxia, cardiac sources, intracerebral event, toxicologic, neurologic, as well as other pathologies. IMPRESSION/MEDICAL DECISION MAKING: Patient is currently generalized weakness and worsening shortness of breath with obvious peripheral cyanosis. Placed on 2 L of oxygen. Appears primarily to be a perfusion issue of the upper extremities. Patient has been ill for many months with multiple admissions and doubt this represents normal coronavirus. Does not have significant swelling of the lower extremities. Denies pain. States he is been a little bit confused but denies currently. Did not feel this represent acute intracranial hemorrhage or CVA. Patient was emphatic during exam that he does not want BiPAP or intubation but would be okay with CPR. No fevers or sick contacts reported. Patient has some chronic blood pressures in the 90s and persist today. Has recently stopped his Xarelto but lower suspicion for acute PE over the last 7 to 10 days, however INR is elevated 2.0 today. Patient does have a worsening leukocytosis today. Creatinine is stable. Troponin slightly detectable but not abnormal and lower than previous. proBNP is severely elevated. Lactate is also elevated 3.1. Tolerated ceftriaxone before and thus treated here with cefepime and vancomycin for broad-spectrum coverage given the x-ray finding of possible pneumonia. Appears to have decreased perfusion but does not appear to have significant lower extremity swelling. Procalcitonin is elevated 2.3 leading believe there is significant infectious component to this. Do not want to significantly hydrate as if he becomes fluid overloaded he does not want intubated or positive pressure noninvasive ventilation and has poor renal function. Discussed with the hospitalist group. BPs fluctuating in ED. Hospitalist ordered gentle fluid bolus of 500mL with improvement. DIAGNOSIS: Weakness, pneumonia, hypoxia DISPOSITION: Hospitalist will evaluate for inpatient management Critical Care I have personally spent 32 minutes of critical care time in the direct management of this patient. This includes bedside care, interpretation of diagnostic studies, and testing, discussion with consultants, patient, and family members, and other required patient management activities. These 32 minutes is in excess of all separately billable procedures. Past Med/Surg History Family History Father , age 58 Myocardial infarction Family/Other Heart disease Hypertension Dyslipidemia Mother , of "old age" - 98 No problems noted. 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 [employer] Feels Safe at Home: Yes Smoking Status: Former smoker Tobacco Type: cigarettes ; Age Started Using Tobacco: 13 ; packs per day: 1 ; Smoking End Date: 1999 ; Second Hand Exposure: No ; Hx Alcohol Use: Yes Alcohol type: wine Alcohol type Comment: stopped drinking, however, several months ago Hx Substance Use: No Childhood Exposure to Second-Hand Smoke: Yes caffeine: No during the past year weight has: remained stable Dental Care, Regularly: Yes Physical Activity Frequency: Does not Exercise Seatbelt Use: always Sunscreen Use: Yes Allergies Allergies Allergy/AdvReac Type Severity Reaction Status Date / Time [id number]-[id number]-Uhf Reductase Allergy Intermediate myalgia Verified 12/20/19 10:18 Inhibitor bee venom protein (honey bee) Allergy Unknown yellow Verified 12/20/19 10:18 jacket Penicillins Allergy Unknown Unknown Verified 12/20/19 10:18 levofloxacin AdvReac Intermediate nightmares Verified 12/20/19 10:18 Home Meds Home Medications Medication Instructions Recorded Confirmed aspirin [Aspir-81] 81 mg PO DAILY 06/11/19 12/20/19 cholecalciferol (vitamin D3) 125 5,000 units PO DAILY cap 08/09/19 12/20/19 mcg (5,000 unit) capsule loperamide [Imodium A-D] 2 mg PO DIRECTED PRN 08/20/19 12/20/19 metolazone 2.5 mg tablet 2.5 mg PO DAILY PRN tab 09/28/19 12/20/19 glipizide 5 mg tablet 5 mg PO DAILY 10/27/19 12/20/19 Previous Rx's Medication Instructions Recorded metoprolol succinate 25 mg 25 mg PO DAILY #90 tab 03/17/19 tablet,extended release 24 hr potassium chloride 20 mEq 20 meq PO DAILY #90 tab 10/07/19 tablet,extended release fluocinonide 0.05 % topical 1 appln TOP BID #60 gm 10/18/19 ointment nitroglycerin 400 mcg/spray 1 sprays SL .COMPLEX PRN #4.9 gm 10/28/19 translingual sacubitril 24 mg-valsartan 26 mg 0.5 tab PO BID #180 tab 11/10/19 tablet furosemide 40 mg tablet 40 mg PO BID #180 tab 12/06/19 Results & Data (ED) Vital Signs Vital Signs - 24 hr 12/20/19 09:39 12/20/19 10:01 12/20/19 11:00 Temperature 36.3 C L Temperature Source Oral Pulse Rate 82 Pulse Rate [Left Finger] 74 Respiratory Rate 22 20 Blood Pressure 95/65 L Blood Pressure [Left Arm] 86/63 L Blood Pressure Mean 75 Blood Pressure Mean [Left Arm] 70 Pulse Oximetry 84 L 98 94 Oxygen Delivery Method Room Air Nasal Cannula Nasal Cannula Oxygen Flow Rate 2 3 Sepsis Recent Fever Within 48 Hours No Sepsis New/Unexplained Change in Mental Status No Sepsis Action Taken by Nursing No Action Required 12/20/19 11:40 Temperature 36.8 C Temperature Source Rectal Pulse Rate Pulse Rate [Left Finger] 78 Respiratory Rate 24 Blood Pressure Blood Pressure [Left Arm] 77/53 L Blood Pressure Mean Blood Pressure Mean [Left Arm] 61 Pulse Oximetry 92 Oxygen Delivery Method Nasal Cannula Oxygen Flow Rate 3 Sepsis Recent Fever Within 48 Hours Sepsis New/Unexplained Change in Mental Status Sepsis Action Taken by Nursing Laboratory Data Result diagrams: 12/20/19 09:55 12/20/19 09:55 Lab Results 12/20/19 12/20/19 12/20/19 Range/Units 09:55 09:55 09:55 WBC 17.39 H (4.8-10.8) K/uL RBC 4.77 (4.7-6.1) M/uL Hgb 14.5 (14.0-18.0) g/dL Hct 44.0 (42-52) % MCV 92.2 (80-100) fL MCH 30.4 (25-34) pg MCHC 33.0 (32-36) g/dL RDW Std Deviation 62.0 H (36.4-46.3) fL RDW Coeff of Aliyah 18.6 H (11.5-14.5) % Plt Count 181 (130-400) K/uL MPV 10.8 H (7.4-10.4) fL Immature Gran % (Auto) 0.5 % Neut % (Auto) 92.8 % Lymph % (Auto) 4.1 % Sampson % (Auto) 2.4 % Eos % (Auto) 0.1 % Baso % (Auto) 0.1 % Immature Gran # (Auto) 0.09 H (0.00-0.02) K/uL Neut # (Auto) 16.14 H (1.4-6.5) K/uL Lymph # (Auto) 0.72 L (1.2-3.4) K/uL Sampson # (Auto) 0.41 (0.11-0.59) K/uL Eos # (Auto) 0.01 (0-0.5) K/uL Baso # (Auto) 0.02 (0-0.2) K/uL PT 20.1 H (9.0-12.0) Seconds INR 2.0 H (0.9-1.1) APTT 34.9 H (21.0-31.0) Seconds PTT Ratio 1.3 VBG pH (7.36-7.41) VBG pCO2 (38-50) mmHg VBG pO2 mmHg VBG HCO3 mmol/L VBG O2 Saturation % VBG Base Excess mEq/L Barometric Pressure mm/Hg Sodium 136 (136-145) mmol/L Potassium 4.4 (3.5-5.1) mmol/L Chloride 108 H (98-107) mmol/L Carbon Dioxide 21 (21-32) mmol/L Anion Gap 7.0 (3-11) BUN 80 H (7-18) mg/dl Creatinine 2.11 H (0.6-1.4) mg/dl Est Cr Clr Drug Dosing 30.8 ml/min Est GFR ( Amer) 34.2 Est GFR (Non-Af Amer) 29.5 BUN/Creatinine Ratio 38.1 H (10-20) Glucose 121 H (70-99) mg/dl Lactate (0.4-2.0) mmol/L Calcium 9.1 (8.5-10.1) mg/dl Magnesium 2.5 H (1.8-2.4) mg/dl Total Bilirubin 4.1 H (0.2-1) mg/dl AST 36 (15-37) U/L ALT 31 (12-78) U/L Alkaline Phosphatase 141 H (45-117) U/L Troponin I 0.021 (0-0.045) ng/ml NT-Pro-B Natriuret Pep > 41855 H (0-1800) pg/ml Total Protein 7.0 (6.4-8.2) gm/dl Albumin 2.4 L (3.4-5.0) gm/dl Globulin 4.6 H (2.5-4.0) gm/dl Albumin/Globulin Ratio 0.5 L (0.9-2) Procalcitonin (0-0.5) ng/ml Urine Color Urine Appearance (Clear) Urine pH (4.5-7.5) Ur Specific [place] (1.000-1.030) Urine Protein (Negative) Urine Glucose (UA) (Negative) Urine Ketones (Negative) Urine Blood (Negative) Urine Nitrite (Negative) Urine Bilirubin (Negative) Urine Urobilinogen (Negative) Ur Leukocyte Esterase (Negative) Urine WBC (Auto) (0-5) /hpf Urine RBC (Auto) (0-4) /hpf U Hyaline Cast (Auto) (0-5) /lpf U Epithel Cells (Auto) (0-5) /lpf Urine Bacteria (Auto) (Negative) Influenza Type A (PCR) (Neg) Influenza Type B (PCR) (Neg) 12/20/19 12/20/19 12/20/19 Range/Units 10:08 10:33 10:33 WBC (4.8-10.8) K/uL RBC (4.7-6.1) M/uL Hgb (14.0-18.0) g/dL Hct (42-52) % MCV (80-100) fL MCH (25-34) pg MCHC (32-36) g/dL RDW Std Deviation (36.4-46.3) fL RDW Coeff of Aliyah (11.5-14.5) % Plt Count (130-400) K/uL MPV (7.4-10.4) fL Immature Gran % (Auto) % Neut % (Auto) % Lymph % (Auto) % Sampson % (Auto) % Eos % (Auto) % Baso % (Auto) % Immature Gran # (Auto) (0.00-0.02) K/uL Neut # (Auto) (1.4-6.5) K/uL Lymph # (Auto) (1.2-3.4) K/uL Sampson # (Auto) (0.11-0.59) K/uL Eos # (Auto) (0-0.5) K/uL Baso # (Auto) (0-0.2) K/uL PT (9.0-12.0) Seconds INR (0.9-1.1) APTT (21.0-31.0) Seconds PTT Ratio VBG pH 7.39 (7.36-7.41) VBG pCO2 37 L (38-50) mmHg VBG pO2 25 mmHg VBG HCO3 21 mmol/L VBG O2 Saturation < 60.0 % VBG Base Excess -3.0 mEq/L Barometric Pressure 720.0 mm/Hg Sodium (136-145) mmol/L Potassium (3.5-5.1) mmol/L Chloride (98-107) mmol/L Carbon Dioxide (21-32) mmol/L Anion Gap (3-11) BUN (7-18) mg/dl Creatinine (0.6-1.4) mg/dl Est Cr Clr Drug Dosing ml/min Est GFR ( Amer) Est GFR (Non-Af Amer) BUN/Creatinine Ratio (10-20) Glucose (70-99) mg/dl Lactate (0.4-2.0) mmol/L Calcium (8.5-10.1) mg/dl Magnesium (1.8-2.4) mg/dl Total Bilirubin (0.2-1) mg/dl AST (15-37) U/L ALT (12-78) U/L Alkaline Phosphatase (45-117) U/L Troponin I (0-0.045) ng/ml NT-Pro-B Natriuret Pep (0-1800) pg/ml Total Protein (6.4-8.2) gm/dl Albumin (3.4-5.0) gm/dl Globulin (2.5-4.0) gm/dl Albumin/Globulin Ratio (0.9-2) Procalcitonin 2.38 H (0-0.5) ng/ml Urine Color Urine Appearance (Clear) Urine pH (4.5-7.5) Ur Specific [place] (1.000-1.030) Urine Protein (Negative) Urine Glucose (UA) (Negative) Urine Ketones (Negative) Urine Blood (Negative) Urine Nitrite (Negative) Urine Bilirubin (Negative) Urine Urobilinogen (Negative) Ur Leukocyte Esterase (Negative) Urine WBC (Auto) (0-5) /hpf Urine RBC (Auto) (0-4) /hpf U Hyaline Cast (Auto) (0-5) /lpf U Epithel Cells (Auto) (0-5) /lpf Urine Bacteria (Auto) (Negative) Influenza Type A (PCR) Neg for Influ A (Neg) Influenza Type B (PCR) Neg for Influ B (Neg) 12/20/19 12/20/19 Range/Units 10:33 10:55 WBC (4.8-10.8) K/uL RBC (4.7-6.1) M/uL Hgb (14.0-18.0) g/dL Hct (42-52) % MCV (80-100) fL MCH (25-34) pg MCHC (32-36) g/dL RDW Std Deviation (36.4-46.3) fL RDW Coeff of Aliyah (11.5-14.5) % Plt Count (130-400) K/uL MPV (7.4-10.4) fL Immature Gran % (Auto) % Neut % (Auto) % Lymph % (Auto) % Sampson % (Auto) % Eos % (Auto) % Baso % (Auto) % Immature Gran # (Auto) (0.00-0.02) K/uL Neut # (Auto) (1.4-6.5) K/uL Lymph # (Auto) (1.2-3.4) K/uL Sampson # (Auto) (0.11-0.59) K/uL Eos # (Auto) (0-0.5) K/uL Baso # (Auto) (0-0.2) K/uL PT (9.0-12.0) Seconds INR (0.9-1.1) APTT (21.0-31.0) Seconds PTT Ratio VBG pH (7.36-7.41) VBG pCO2 (38-50) mmHg VBG pO2 mmHg VBG HCO3 mmol/L VBG O2 Saturation % VBG Base Excess mEq/L Barometric Pressure mm/Hg Sodium (136-145) mmol/L Potassium (3.5-5.1) mmol/L Chloride (98-107) mmol/L Carbon Dioxide (21-32) mmol/L Anion Gap (3-11) BUN (7-18) mg/dl Creatinine (0.6-1.4) mg/dl Est Cr Clr Drug Dosing ml/min Est GFR ( Amer) Est GFR (Non-Af Amer) BUN/Creatinine Ratio (10-20) Glucose (70-99) mg/dl Lactate 3.1 H* (0.4-2.0) mmol/L Calcium (8.5-10.1) mg/dl Magnesium (1.8-2.4) mg/dl Total Bilirubin (0.2-1) mg/dl AST (15-37) U/L ALT (12-78) U/L Alkaline Phosphatase (45-117) U/L Troponin I (0-0.045) ng/ml NT-Pro-B Natriuret Pep (0-1800) pg/ml Total Protein (6.4-8.2) gm/dl Albumin (3.4-5.0) gm/dl Globulin (2.5-4.0) gm/dl Albumin/Globulin Ratio (0.9-2) Procalcitonin (0-0.5) ng/ml Urine Color Dark Yellow Urine Appearance Cloudy A (Clear) Urine pH 5.0 (4.5-7.5) Ur Specific [place] 1.016 (1.000-1.030) Urine Protein Negative (Negative) Urine Glucose (UA) Negative (Negative) Urine Ketones Negative (Negative) Urine Blood Negative (Negative) Urine Nitrite Negative (Negative) Urine Bilirubin Negative (Negative) Urine Urobilinogen Negative (Negative) Ur Leukocyte Esterase Negative (Negative) Urine WBC (Auto) 1-5 (0-5) /hpf Urine RBC (Auto) 0-4 (0-4) /hpf U Hyaline Cast (Auto) >30 H (0-5) /lpf U Epithel Cells (Auto) 10-20 H (0-5) /lpf Urine Bacteria (Auto) Negative (Negative) Influenza Type A (PCR) (Neg) Influenza Type B (PCR) (Neg) Administered Medications Discontinued Medications Cefepime HCl (Maxipime) 2,000 mg in 20 mls @ 5 mls/min IV NOW STA; Protocol Stop: 12/20/19 11:17 Last Admin: 12/20/19 11:30 Dose: 5 mls/min Documented by: [id number] Vancomycin HCl 1,750 mg/ (Sodium Chloride) 535 mls @ 200 mls/hr IV NOW ONE Stop: 12/20/19 13:54 Last Infusion: 12/20/19 14:55 Dose: 0 mls/hr Documented by: [id number] Admin: 12/20/19 11:38 Dose: 200 mls/hr Documented by: [id number] Sodium Chloride (Nss 1000ml) 500 mls @ 999 mls/hr IV .Q31M ONE Stop: 12/20/19 13:09 Last Infusion: 12/20/19 14:21 Dose: 0 mls/hr Documented by: [id number] Admin: 12/20/19 13:42 Dose: 999 mls/hr Documented by: [id number] Doxycycline Hyclate 100 mg/ (Dextrose) 110 mls @ 50 mls/hr IV NOW STA Stop: 12/20/19 14:50 Last Admin: 12/20/19 13:41 Dose: 50 mls/hr Documented by: [id number] Discharge Plan Visit Data Chief Complaint: Shortness of Breath/Dyspnea Stated Complaint: SOB ED Provider: Gomez Lopez Discharge Problem: Weakness, Pneumonia, Hypoxia Discharge Instructions Interventions: ED Discharge Assessment Last Done: 12/20/19 14:27 Discharge Problem: Pneumonia Qualifiers: Pneumonia type: due to unspecified organism Laterality: right Lung location: unspecified part of lung Qualified Code(s): J18.9 - Pneumonia, unspecified organism
[2019-12-20 10:25] LABS: Alanine Aminotransferase 31 U/L (12-78); Albumin Level 2.4 gm/dl (3.4-5.0); Aspartate Aminotransferase 36 U/L (15-37); BUN Creatinine Ratio 38.1 (10-20); Blood Urea Nitrogen 80 mg/dl (7-18); Calcium 9.1 mg/dl (8.5-10.1); Carbon Dioxide 21 mmol/L (21-32); Chloride 108 mmol/L (98-107); Creatinine Clr Calc Pharmacy 30.8 ml/min; Est GFR (African American) 34.2; Est GFR (Non-African American) 29.5; Glucose 121 mg/dl (70-99); Magnesium 2.5 mg/dl (1.8-2.4); Potassium 4.4 mmol/L (3.5-5.1); Sodium 136 mmol/L (136-145)
[2019-12-20 10:31] LABS: Albumin Globulin Ratio 0.5 (0.9-2); Alkaline Phosphatase 141 U/L (45-117); Bilirubin,Total 4.1 mg/dl (0.2-1); Globulin 4.6 gm/dl (2.5-4.0); NT Pro B Type Natriuretic Pept > 35000 pg/ml (0-1800); Troponin I 0.021 ng/ml (0-0.045)
[2019-12-20 10:33] LABS: Partial Thromboplastin Ratio 1.3; Partial Thromboplastin Time 34.9 Seconds (21.0-31.0); Prothrombin Time 20.1 Seconds (9.0-12.0)
[2019-12-20 10:51] LABS: Influenza A virus by PCR Neg for Influ A (Neg); Influenza B virus by PCR Neg for Influ B (Neg)
--- NOTE | 2019-12-20 10:52 | XRay Report ---
XR chest 1V portable CLINICAL HISTORY: Dyspnea COMPARISON STUDY: 11/08/2019 FINDINGS: Moderate stable cardiomegaly. Components of congestive heart failure present. This is asymm etrically prominent on the right raising the possibility of a superimposed infiltrate. Bipolar cardiac pacemaker/defibrillator unchanged in location. IMPRESSION: 1. Findings of progressive congestive heart failure versus a diffuse superimposed infiltrate of the r ight hemithorax. ACT 112: Negative or not required by law. The above report was generated using voice recognition software. It may contain grammatical, syntax or spelling errors. Electronically signed by: Junito Leon M.D. 12/20/2019 10:50 AM
[2019-12-20 10:53] LABS: HCO3 VBG 21 mmol/L; PCO2 VBG 37 mmHg (38-50); PO2 VBG 25 mmHg; pH VBG 7.39 (7.36-7.41)
[2019-12-20 10:55] LABS: Oxygen Saturation VBG < 60.0 %
[2019-12-20] MEDS ORDERED: VANCOMYCIN CONSULT ACTIVE PRN ×2 (11:14→15:38)
[2019-12-20] MEDS ORDERED: CEFEPIME 2,000 MG/20 ML VIAL IV STA (11:14)
[2019-12-20] MEDS ORDERED: VANCOMYCIN HCL 1,750 MG in SODIUM CHLORIDE 0.9% 500 ML IV ONE (11:14)
[2019-12-20 11:15] LABS: Appearance Urine Cloudy (Clear); Bacteria Urine Automated Negative (Negative); Bilirubin Urine Negative (Negative); Blood Urine Negative (Negative); Color Urine Dark Yellow; Glucose Urine UA Negative (Negative); Ketones Urine Negative (Negative); Leukocyte Esterase Urine Negative (Negative); Nitrite Urine Negative (Negative); Protein Urine Negative (Negative); Specific Gravity Urine 1.016 (1.000-1.030); Urobilinogen Urine Negative (Negative)
[2019-12-20 11:26] LABS: Cast Urine Automated >30 /lpf (0-5); RBC Urine Automated 0-4 /hpf (0-4)
--- NOTE | 2019-12-20 11:54 | Electrocardiogram Report ---
Test Reason : Blood Pressure : / mmHG Vent. Rate : 080 BPM Atrial Rate : 416 BPM P-R Int : 000 ms QRS Dur : 160 ms QT Int : 450 ms P-R-T Axes : 000 -47 068 degrees QTc Int : 519 ms Ventricular-paced rhythm with occasional supraventricular complexes Abnormal ECG When compared with ECG of 12-OCT-2019 15:55, Vent. rate has increased BY 2 BPM Confirmed by Michael Zavala ([id number]) on 12/20/2019 11:54:26 AM Referred By: Confirmed By:Deonte Zavala
[2019-12-20] MEDS ORDERED: SODIUM CHLORIDE 0.9% 1000ML 500 ML IV ONE (12:39)
[2019-12-20] MEDS ORDERED: DOXYCYCLINE HYCLATE 100 MG in DEXTROSE 5% 100 ML IV STA (12:39)
--- NOTE | 2019-12-20 14:41 | History & Physical Report ---
Date of Service December 20, 2019 Assessment & Plan (1) Shock: Suspect combination of septic and cardiogenic. Last echo - 05/2019 - EF 20-25%. Cardiomyopathy is 2nd to ischemia - large area of akinesis on that echo (had AR 1997 per records). Cannot rule out adrenal insufficiency (chronic fatigue, weakness, cold intolerance) - consider cortisol level. Did receive 500+ cc of fluid in ER with improvement of systolic BP from 70s to about 90 (per records seems to be near his baseline). Caution with excess fluids given his severe CHF. (2) Acute respiratory failure with hypoxia: Suspect combination of pneumonia with acute/chronic CHF. Right lung with considerable infiltration. Also his history is concerning for potential COVID-19 infection. Plan - IV abx (cefepime, doxy; defer on MRSA coverage unless MRSA swab is +). NC O2 support. Will ultimately need diuresis but not possible at this time. COVID-19 testing. Defer management to ICU attending. (3) Sepsis: Source - likely the lungs. As above in "acute hypoxic..." Follow blood and urine cx's. COVID-19 testing is pending. While awaiting testing place in negative pressure room/airborne isolation. If sputum is available send for culture. (4) Pneumonia: largely right sided, possibly early on left as well. see above re: antibiotics, COVID testing, etc. (5) Acute on chronic systolic heart failure: Severe CHF - EF 20-25%. Need to hold diuretics, entresto and BB due to shock. Potentially will need pressors and/or inotropic therapy. Defer management to ICU attending and/or cardiology. (6) Coagulopathy: INR today is 2. He is not on warfarin. Highly concerning for vitamin K deficiency vs liver disease vs other. Consider vitamin K supplementation. Platelets are normal making DIC unlikely. Serial INRs. (7) Atrial fibrillation: h/o xarelto use but stopped about 10 days ago due to excessive bleeding. excessive bleeding likely from coagulopathy in the setting of that xarelto use. 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 other? AST, ALT wnl serial LFTs consider RUQ us if they remain high (15) Metabolic encephalopathy: 2nd to presumed sepsis, shock, etc consider cortisol level check Free T4 - r/o massive hypothyroidism (16) CAD (coronary artery disease): h/o acute AR 1997 no recent ischemic symptoms troponin is wnl continue aspirin (17) DVT prophylaxis: patient is coagulopathic with INR of 2. will defer on chemical anticoagulation at this time. extensively updated at bedside. code status discussed. she reports he would want CPR (compressions, shocks, pressors) but since his 07/2019 intubation he has consistently stated he would NOT want intubation again or mech ventilation. admit to ICU. care d/w Dr Camejo. await COVID testing. History of Present Illness Chief Complaint: extreme fatigue, weakness, cough, dyspnea Primary Care Provider: Leonor Day, DO 74yo male with severe chronic systolic CHF, AICD, T2DM, a.fib, ?hypothyroidism, and ICU admission in July 2019 for influenza infection requiring intubation/mech ventilation who presents from home with his due to a variety of complaints and symptoms. Most of the history was obtained from the patient's as the patient was altered during the encounter. Apparently since his 07/2019 admission to the ICU he has done poorly on a general basis. He was readmitted to [facility] in October 2019 for pneumonia. He did recover from the episode but has had progressive weakness since. According to the patient's he complains constantly of feeling cold (much worse in the last 1-2 weeks, however), has had severely decreased PO intake since October (again worse in the last week), 30-40 pounds of weight loss since 2019, cough productive of yellow sputum for 1 week, shortness of breath for 2 days, dysuria for 1-2 days, excessive sleeping with sleep/naps of up to 20 hours/day, diarrhea about 1 week ago (lasted for about 3 days then resolved), urinary incontinence, and confusion. Sometime overnight/this AM the patient's nail beds were cyanotic. They attempted to get NC O2 from his PCP's office but this was not possible without a [id number]-[id number] encounter according to the . No fevers, chills, or myalgias. No chest pain. No vomiting. No abdominal pain. He did see Dr Pizarro from cardiology about 10 days ago. During that visit his xarelto was discontinued due to recent episode of excessive bleeding. No recent travel. does leave the home on occasion for obtaining necessities. Daughter - who is a a nurse at [employer] - has been visiting their home and brings them food/groceries. Lastly, the patient's AICD/pacer was interrogated recently. The received a call from Dr Barrow's office yesterday and they were told the interrogation suggested fluid overload. He was instructed to take metazolone yesterday which he did take. Allergies Allergy/AdvReac Type Severity Reaction Status Date / Time Tybiaco-Kxo-Cwd Reductase Allergy Intermediate myalgia Verified 12/20/19 10:18 Inhibitor bee venom protein (honey bee) Allergy Unknown yellow Verified 12/20/19 10:18 jacket Penicillins Allergy Unknown Unknown Verified 12/20/19 10:18 levofloxacin AdvReac Intermediate nightmares Verified 12/20/19 10:18 Home Medications Home Medications Medication Instructions Recorded Confirmed Type metoprolol succinate 25 mg 25 mg PO DAILY #90 tab 03/17/19 12/20/19 Rx tablet,extended release 24 hr aspirin [Aspir-81] 81 mg PO DAILY 06/11/19 12/20/19 History cholecalciferol (vitamin D3) 125 5,000 units PO DAILY cap 08/09/19 12/20/19 History mcg (5,000 unit) capsule loperamide [Imodium A-D] 2 mg PO DIRECTED PRN 08/20/19 12/20/19 History metolazone 2.5 mg tablet 2.5 mg PO DAILY PRN tab 09/28/19 12/20/19 History potassium chloride 20 mEq 20 meq PO DAILY #90 tab 10/07/19 12/20/19 Rx tablet,extended release fluocinonide 0.05 % topical 1 appln TOP BID #60 gm 10/18/19 12/20/19 Rx ointment glipizide 5 mg tablet 5 mg PO DAILY 10/27/19 12/20/19 History nitroglycerin 400 mcg/spray 1 sprays SL .COMPLEX PRN #4.9 gm 10/28/19 12/20/19 Rx translingual sacubitril 24 mg-valsartan 26 mg 0.5 tab PO BID #180 tab 11/10/19 12/20/19 Rx tablet furosemide 40 mg tablet 40 mg PO BID #180 tab 12/06/19 12/20/19 Rx Past Med/Surg History Medical History (Updated 12/20/19 @ 15:07 by Amol Mendoza) Abnormal CT of the chest Anemia Arteriosclerotic cardiovascular disease (Acute) Atrial fibrillation (Chronic) CAD (coronary artery disease) Central hypothyroidism Chronic kidney disease, stage 3 (moderate) (Chronic) Chronic systolic congestive heart failure (Acute) 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) Dyslipidemia (Acute) Gout (Acute) History of pacemaker Hypertension (Acute) ICD (implantable cardioverter-defibrillator) in place (Acute 09/02/11) Ischemic cardiomyopathy (Acute) Left bundle branch block (LBBB) (Acute) Multinodular goiter (Acute) 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 [employer] Feels Safe at Home: Yes Smoking Status: Former smoker Tobacco Type: cigarettes ; Age Started Using Tobacco: 13 ; packs per day: 1 ; Smoking End Date: 1999 ; Second Hand Exposure: No ; Hx Alcohol Use: Yes Alcohol type: wine Alcohol type Comment: stopped drinking, however, several months ago Hx Substance Use: No Childhood Exposure to Second-Hand Smoke: Yes caffeine: No during the past year weight has: remained stable Dental Care, Regularly: Yes Physical Activity Frequency: Does not Exercise Seatbelt Use: always Sunscreen Use: Yes Review of Systems Constitutional: + chills (constantly cold ), + fatigue, + malaise, + weakness, + anorexia and + weight loss; no fever, no sweats and no body aches Eyes: no worsening vision Ear, Nose, Mouth, Throat: no sore throat and no dysphagia Respiratory: + cough, + dyspnea, + dyspnea on exertion and + sputum production; no hemoptysis Cardiovascular: + orthopnea and + edema; no chest pain Gastrointestinal: as per Subjective / HPI and + diarrhea/loose stools; no abdominal pain, no nausea and no vomiting Genitourinary: + dysuria Musculoskeletal: no back pain and no neck pain Integumentary: + rash (eczema lesions - on feet (sees dermatology)) Neurologic: + generalized weakness; no loss of sensation Psychiatric: + depression Endocrine: + cold intolerance stopped glipizide in the last couple of weeks Hematologic / Lymphatic: + easy bleeding Physical Exam Constitutional: + acute distress (tachypneic), + ill appearing, + altered mental status and + frail appearing Eyes: PERRL ENMT: external ear and nose normal, oropharynx normal Neck: trachea midline, no thyromegaly Respiratory: + respiratory distress, + cough and + tachypneic Auscultation: + crackles (both bases); no wheezes Cardiovascular: Rate/Rhythm: regular rate and regular rhythm Heart Sounds: normal S1 and normal S2; no murmur Vessels: + JVD (to the jaw ) and posterior tibial pulses present (feet cool, pulses <1+ b/l ) Extremities: + edema (1+ b/l ) Gastrointestinal (Abdomen): normal bowel sounds, soft, nontender, no hepatosplenomegaly Inspection/Auscultation: + abdomen distended (?mild ascites?) Musculoskeletal: no joint effusions of large or small joints Skin: eczematic rash on both feet - some almost in pustular form Neurologic: moves all extremities; no focal motor deficits Psychiatric: Orientation: alert and oriented to person; + not oriented to place and + not oriented to time Lymphatic: no cervical lymphadenopathy Results & Data Results & Data ([facility]) Vital Signs (Past 12 Hours) Vital Signs Temp Pulse Pulse Resp BP BP Pulse Ox 12/20/19 11:40 36.8 C 78 24 77/53 L 92 12/20/19 11:00 74 20 86/63 L 94 12/20/19 10:01 98 12/20/19 09:39 36.3 C L 82 22 95/65 L 84 L Laboratory Results Laboratory Results - last 24 hr 12/20/19 12/20/19 12/20/19 09:55 09:55 09:55 WBC 17.39 H RBC 4.77 Hgb 14.5 Hct 44.0 MCV 92.2 MCH 30.4 MCHC 33.0 RDW Std Deviation 62.0 H RDW Coeff of Aliyah 18.6 H Plt Count 181 MPV 10.8 H Immature Gran % (Auto) 0.5 Neut % (Auto) 92.8 Lymph % (Auto) 4.1 [place] % (Auto) 2.4 Eos % (Auto) 0.1 Baso % (Auto) 0.1 Immature Gran # (Auto) 0.09 H Neut # (Auto) 16.14 H Lymph # (Auto) 0.72 L [place] # (Auto) 0.41 Eos # (Auto) 0.01 Baso # (Auto) 0.02 PT 20.1 H INR 2.0 H APTT 34.9 H PTT Ratio 1.3 VBG pH VBG pCO2 VBG pO2 VBG HCO3 VBG O2 Saturation VBG Base Excess Barometric Pressure Sodium 136 Potassium 4.4 Chloride 108 H Carbon Dioxide 21 Anion Gap 7.0 BUN 80 H Creatinine 2.11 H Est Cr Clr Drug Dosing 30.8 Est GFR ( Amer) 34.2 Est GFR (Non-Af Amer) 29.5 BUN/Creatinine Ratio 38.1 H Glucose 121 H Lactate Calcium 9.1 Magnesium 2.5 H Total Bilirubin 4.1 H AST 36 ALT 31 Alkaline Phosphatase 141 H Troponin I 0.021 NT-Pro-B Natriuret Pep > 64054 H Total Protein 7.0 Albumin 2.4 L Globulin 4.6 H Albumin/Globulin Ratio 0.5 L Procalcitonin Free T4 Urine Color Urine Appearance Urine pH Ur Specific Plain Urine Protein Urine Glucose (UA) Urine Ketones Urine Blood Urine Nitrite Urine Bilirubin Urine Urobilinogen Ur Leukocyte Esterase Urine WBC (Auto) Urine RBC (Auto) U Hyaline Cast (Auto) U Epithel Cells (Auto) Urine Bacteria (Auto) COVID-19 PCR Influenza Type A (PCR) Influenza Type B (PCR) SARS-CoV-2 RNA (RT-PCR) 12/20/19 12/20/19 12/20/19 09:55 10:08 10:33 WBC RBC Hgb Hct MCV MCH MCHC RDW Std Deviation RDW Coeff of Aliyah Plt Count MPV Immature Gran % (Auto) Neut % (Auto) Lymph % (Auto) [place] % (Auto) Eos % (Auto) Baso % (Auto) Immature Gran # (Auto) Neut # (Auto) Lymph # (Auto) [place] # (Auto) Eos # (Auto) Baso # (Auto) PT INR APTT PTT Ratio VBG pH 7.39 VBG pCO2 37 L VBG pO2 25 VBG HCO3 21 VBG O2 Saturation < 60.0 VBG Base Excess -3.0 Barometric Pressure 720.0 Sodium Potassium Chloride Carbon Dioxide Anion Gap BUN Creatinine Est Cr Clr Drug Dosing Est GFR ( Amer) Est GFR (Non-Af Amer) BUN/Creatinine Ratio Glucose Lactate Calcium Magnesium Total Bilirubin AST ALT Alkaline Phosphatase Troponin I NT-Pro-B Natriuret Pep Total Protein Albumin Globulin Albumin/Globulin Ratio Procalcitonin Free T4 Pending Urine Color Urine Appearance Urine pH Ur Specific Plain Urine Protein Urine Glucose (UA) Urine Ketones Urine Blood Urine Nitrite Urine Bilirubin Urine Urobilinogen Ur Leukocyte Esterase Urine WBC (Auto) Urine RBC (Auto) U Hyaline Cast (Auto) U Epithel Cells (Auto) Urine Bacteria (Auto) COVID-19 PCR Influenza Type A (PCR) Neg for Influ A Influenza Type B (PCR) Neg for Influ B SARS-CoV-2 RNA (RT-PCR) 12/20/19 12/20/19 12/20/19 10:33 10:33 10:55 WBC RBC Hgb Hct MCV MCH MCHC RDW Std Deviation RDW Coeff of Aliyah Plt Count MPV Immature Gran % (Auto) Neut % (Auto) Lymph % (Auto) [place] % (Auto) Eos % (Auto) Baso % (Auto) Immature Gran # (Auto) Neut # (Auto) Lymph # (Auto) [place] # (Auto) Eos # (Auto) Baso # (Auto) PT INR APTT PTT Ratio VBG pH VBG pCO2 VBG pO2 VBG HCO3 VBG O2 Saturation VBG Base Excess Barometric Pressure Sodium Potassium Chloride Carbon Dioxide Anion Gap BUN Creatinine Est Cr Clr Drug Dosing Est GFR ( Amer) Est GFR (Non-Af Amer) BUN/Creatinine Ratio Glucose Lactate 3.1 H* Calcium Magnesium Total Bilirubin AST ALT Alkaline Phosphatase Troponin I NT-Pro-B Natriuret Pep Total Protein Albumin Globulin Albumin/Globulin Ratio Procalcitonin 2.38 H Free T4 Urine Color Dark Yellow Urine Appearance Cloudy A Urine pH 5.0 Ur Specific Plain 1.016 Urine Protein Negative Urine Glucose (UA) Negative Urine Ketones Negative Urine Blood Negative Urine Nitrite Negative Urine Bilirubin Negative Urine Urobilinogen Negative Ur Leukocyte Esterase Negative Urine WBC (Auto) 1-5 Urine RBC (Auto) 0-4 U Hyaline Cast (Auto) >30 H U Epithel Cells (Auto) 10-20 H Urine Bacteria (Auto) Negative COVID-19 PCR Influenza Type A (PCR) Influenza Type B (PCR) SARS-CoV-2 RNA (RT-PCR) 12/20/19 12/20/19 12/20/19 13:31 13:40 13:40 WBC RBC Hgb Hct MCV MCH MCHC RDW Std Deviation RDW Coeff of Aliyah Plt Count MPV Immature Gran % (Auto) Neut % (Auto) Lymph % (Auto) [place] % (Auto) Eos % (Auto) Baso % (Auto) Immature Gran # (Auto) Neut # (Auto) Lymph # (Auto) [place] # (Auto) Eos # (Auto) Baso # (Auto) PT INR APTT PTT Ratio VBG pH VBG pCO2 VBG pO2 VBG HCO3 VBG O2 Saturation VBG Base Excess Barometric Pressure Sodium Potassium Chloride Carbon Dioxide Anion Gap BUN Creatinine Est Cr Clr Drug Dosing Est GFR ( Amer) Est GFR (Non-Af Amer) BUN/Creatinine Ratio Glucose Lactate 2.4 H* Calcium Magnesium Total Bilirubin AST ALT Alkaline Phosphatase Troponin I NT-Pro-B Natriuret Pep Total Protein Albumin Globulin Albumin/Globulin Ratio Procalcitonin Free T4 Urine Color Urine Appearance Urine pH Ur Specific Plain Urine Protein Urine Glucose (UA) Urine Ketones Urine Blood Urine Nitrite Urine Bilirubin Urine Urobilinogen Ur Leukocyte Esterase Urine WBC (Auto) Urine RBC (Auto) U Hyaline Cast (Auto) U Epithel Cells (Auto) Urine Bacteria (Auto) COVID-19 PCR Pending Influenza Type A (PCR) Influenza Type B (PCR) SARS-CoV-2 RNA (RT-PCR) Cancelled Diagnostic Findings cxr - my reading - diffuse alveolar infiltrates right lung; mild infiltrates left lower lobe EKG - ventricular pacing Code Status & VTE Plan Code Status conditional/partial code ---- confirmed with who is POA -- compressions/shocks/pressors are permissible no intubation or mech ventilation patient does not want BIPAP either VTE Prophylaxis Plan VTE Prophylaxis will be ordered: No Critical Care Time Critical Care Time: Yes Total Critical Care Time: 75 PG Care Time/CCT Total # of Minutes Spent Total Time Spent with Patient: Total time spent is greater than 50% in coordination of care (as documented) at patient's floor/unit and/or counseling patient: Critical Care Time: Yes Total Critical Care Time: 75 Coding Level of Care Code None Diagnoses Shock R57.9 Acute respiratory failure with hypoxia J96.01 Sepsis A41.9 Pneumonia J18.9 Laterality: right Lung location: unspecified part of lung Pneumonia type: due to unspecified organism Acute on chronic systolic heart failure I50.23 Coagulopathy D68.9 Atrial fibrillation I48.91 ICD (implantable cardioverter-defibrillator) in place Z95.810 Chronic kidney disease, stage 3 (moderate) N18.3 Diabetes mellitus type 2 with complications E11.8 Hypertension I10 Severe protein-calorie malnutrition E43 Cold intolerance R68.89 Abnormal LFTs R94.5 Metabolic encephalopathy G93.41 CAD (coronary artery disease) I25.10 DVT prophylaxis Z29.9 Additional Codes Critical Care Time - Critical Care Time: Yes ([id number]) (1) Pneumonia Laterality: right Lung location: unspecified part of lung Pneumonia type: due to unspecified organism Qualified Code(s): J18.9 - Pneumonia, unspecified organism
[2019-12-20] MEDS ORDERED: NITROGLYCERIN 60 SPRAYS/4.9 GM SPRAY SL PRN (15:26)
[2019-12-20] MEDS ORDERED: ICU PROTOCOL FOR HYPERGLYCEMIA PRN (15:26)
[2019-12-20] MEDS: FAMOTIDINE 20 MG in SYRINGE 3 ML IV SCH (16:22)
--- NOTE | 2019-12-20 17:14 | Critical Care Consultation ---
Date of Consultation December 20, 2019 Assessment & Plan (1) S/P admission to ICU (intensive care unit): Patient presenting with hypoxemic respiratory failure and hypotension likely secondary to hypovolemia and sepsis. I requested that the ER gave him 500 mL of fluid and after fluid bolus his blood pressure responded very nicely from 80s over 50s to 112/88. He has already received vancomycin/cefepime/doxycycline in the emergency department. I will add Flagyl to his antibiotics given his transaminitis and mild abdominal pain on physical exam. I ordered for a CT of his chest/abdomen/pelvis. I have also ordered for a GGT and a lipase given his transaminitis. I suspect that he likely has an aspiration pneumonia given his right-sided infiltrate and his elevated procalcitonin. Urinalysis did not demonstrate any evidence of infection. I have ordered for a bio fire panel. His COVID 19 testing is negative. I think that his constellation of symptoms and findings are not necessarily consistent with COVID-19 at this point especially in light of a negative test. Lactic acidosis is improving. Once his MRSA screen is back we can decide whether we need to continue the vancomycin. If the CT abdomen findings are not impressive, I will stop the Flagyl. The patient and the (I spoke to her over the phone) have clearly indicated to me that the patient would not want mechanical ventilation or even BiPAP should his respiratory status worsen. I also clarified the patient's CODE STATUS with the who indicated that she would like him to be a DO NOT RESUSCITATE in addition it to a DO NOT INTUBATE in the event that he has a cardiac arrest or respiratory arrest. Additionally, he does have a history of CKD and is creatinine appears to be around the baseline. He also has a history of atrial fibrillation and ischemic cardiomyopathy. His BNP is severely elevated at greater than 35,000. Despite this, I am going to hold off on any diuretic therapy unless he further decompensates from a respiratory status standpoint given his relative hypotension upon admission and his fluid responsive state. Procalcitonin can also occasionally mildly falsely elevated due to CKD and ROGELIO, however, in his current state of illness I am inclined to treat infection. Additionally, we will follow his heart rate closely and institute beta blockade if necessary. Malagon is in place. Continue heparin for VT prophylaxis. We will start him on famotidine for GI prophylaxis. I called the patient's and discussed the case with her. She expressed understanding. CRITICAL CARE TIME - I have personally spent 50 minutes of critical care time in the direct management of this patient. This is a life/limb threatening event. This includes time spent evaluating patient, direct bedside care, chart review, placing orders, interpretation of diagnostic studies, discussion with consultants, patient, and family members, as well as other required patient management activities. This time is exclusive of all separately billable procedures, and teaching time and separate from and in addition to any other critical care service time. (2) Acute hypoxemic respiratory failure: (3) Aspiration pneumonia: (4) Acute systolic heart failure: (5) Abnormal LFTs: (6) Coagulopathy: (7) Shock: History of Present Illness Reason for Consultation: Acute hypoxemic respiratory failure Requesting Physician: Dr. Shin Mendoza Attending Physician: Amol Mendoza History of Present Illness 74-year-old male with a history of ischemic cardiomyopathy with an EF of 20 to 25%, atrial fibrillation, atherosclerotic cardiovascular disease who presented to the hospital with increasing shortness of breath and a pain in the back of his throat. Patient is not a great historian and is he is dyspneic and a bit altered. From what I was able to gather from him in the electronic medical record it appears that he has been feeling cold and fatigued for the last 2 to 3 days. He also notes that his appetite has been very poor and waxing and waning over the last 2 to 3 weeks. Per the EMR it appears that he has lost 30 to 40 pounds. He endorses a dry cough. He also notices some dysuria over the last 2 to 3 days. He describes that he has been a bit lethargic as of late. He was apparently found in the ER to be fairly hypoxemic and we have started him on high flow nasal cannula 4 L and 100% with improvement of his sats to 86 to 90%. No obvious COVID contacts. Apparently his daughter is a nurse at [employer]. Allergies Allergy/AdvReac Type Severity Reaction Status Date / Time Jdtqcjq-Fce-Gup Reductase Allergy Intermediate myalgia Verified 12/20/19 10:18 Inhibitor bee venom protein (honey bee) Allergy Unknown yellow Verified 12/20/19 10:18 jacket Penicillins Allergy Unknown Unknown Verified 12/20/19 10:18 levofloxacin AdvReac Intermediate nightmares Verified 12/20/19 10:18 Home Medications Home Medications Medication Instructions Recorded Confirmed Type metoprolol succinate 25 mg 25 mg PO DAILY #90 tab 03/17/19 12/20/19 Rx tablet,extended release 24 hr aspirin [Aspir-81] 81 mg PO DAILY 06/11/19 12/20/19 History cholecalciferol (vitamin D3) 125 5,000 units PO DAILY cap 08/09/19 12/20/19 History mcg (5,000 unit) capsule loperamide [Imodium A-D] 2 mg PO DIRECTED PRN 08/20/19 12/20/19 History metolazone 2.5 mg tablet 2.5 mg PO DAILY PRN tab 09/28/19 12/20/19 History potassium chloride 20 mEq 20 meq PO DAILY #90 tab 10/07/19 12/20/19 Rx tablet,extended release fluocinonide 0.05 % topical 1 appln TOP BID #60 gm 10/18/19 12/20/19 Rx ointment glipizide 5 mg tablet 5 mg PO DAILY 10/27/19 12/20/19 History nitroglycerin 400 mcg/spray 1 sprays SL .COMPLEX PRN #4.9 gm 10/28/19 12/20/19 Rx translingual sacubitril 24 mg-valsartan 26 mg 0.5 tab PO BID #180 tab 11/10/19 12/20/19 Rx tablet furosemide 40 mg tablet 40 mg PO BID #180 tab 12/06/19 12/20/19 Rx Patient History Medical History Abnormal CT of the chest Anemia Arteriosclerotic cardiovascular disease (Acute) Atrial fibrillation (Chronic) CAD (coronary artery disease) Central hypothyroidism Chronic kidney disease, stage 3 (moderate) (Chronic) Chronic systolic congestive heart failure (Acute) 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) Dyslipidemia (Acute) Gout (Acute) History of pacemaker Hypertension (Acute) ICD (implantable cardioverter-defibrillator) in place (Acute 09/02/11) Ischemic cardiomyopathy (Acute) Left bundle branch block (LBBB) (Acute) Multinodular goiter (Acute) 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 [employer] Feels Safe at Home: Yes Smoking Status: Former smoker Tobacco Type: cigarettes ; Age Started Using Tobacco: 13 ; packs per day: 1 ; Smoking End Date: 1999 ; Second Hand Exposure: No ; Hx Alcohol Use: Yes Alcohol type: wine Alcohol type Comment: stopped drinking, however, several months ago Hx Substance Use: No Childhood Exposure to Second-Hand Smoke: Yes caffeine: No during the past year weight has: remained stable Dental Care, Regularly: Yes Physical Activity Frequency: Does not Exercise Seatbelt Use: always Sunscreen Use: Yes Review of Systems Review of Systems: Review of systems limited due to patient's mental status and hypoxemia Physical Exam Constitutional: Patient is tachypneic and fatigued appearing. He has an oxygen nasal cannula in place. Eyes: PERRL, conjunctivae normal, anicteric sclerae ENMT: external ear and nose normal, oropharynx normal Neck: trachea midline, no thyromegaly Respiratory: Diffuse rhonchi in the right lung mild diminishment in the left lung base Cardiovascular: RRR, no murmur, no edema Gastrointestinal (Abdomen): normal bowel sounds, soft, nontender, no hepatosplenomegaly Musculoskeletal: no cyanosis or clubbing, extremities motor strength 5/5 Skin: no rashes, warm and dry Neurologic: patellar DTR's 2+ bilat, sensation intact Psychiatric: A+Ox3, euthymic affect Genitourinary: Malagon catheter in place Results & Data Results & Data ([facility]) Vital Signs (Past 12 Hours) Vital Signs Temp Pulse Pulse Resp BP BP Pulse Ox 12/20/19 16:40 81 24 92 12/20/19 14:16 80 24 90/64 L 100 12/20/19 13:55 92 12/20/19 13:46 74 24 86/49 L 12/20/19 11:40 98.2 F 78 24 77/53 L 92 12/20/19 11:00 74 20 86/63 L 94 12/20/19 10:01 98 12/20/19 09:39 97.3 F L 82 22 95/65 L 84 L I personally reviewed the patient's labs, chest imaging and previous notes Coding Level of Care Code Critical Care 1st 30-74 mins Diagnoses S/P admission to ICU (intensive care unit) Acute hypoxemic respiratory failure J96.01 Aspiration pneumonia J69.0 Acute systolic heart failure I50.21 Abnormal LFTs R94.5 Coagulopathy D68.9 Shock R57.9 Time Spent (min) 50
[2019-12-20 17:35] LABS: iSTAT Allen Test Pass; iSTAT Arterial Blood Gas HCO3 17 meg/L (19-24); iSTAT Arterial Blood Gas pCO2 28 mmHg (35-46); iSTAT Arterial Blood Gas pH 7.38 (7.35-7.45); iSTAT Arterial Blood Gas pO2 109 mmHg (80-95); iSTAT Carbon Dioxide 17 mmol/L (24-31); iSTAT FiO2 100 %; iSTAT Site R Brachial
[2019-12-20 18:08] LABS: Troponin I 0.026 ng/ml (0-0.045)
[2019-12-20] MEDS: metroNIDAZOLE 500 MG/100 ML BAG IV SCH (18:11)
--- NOTE | 2019-12-20 18:42 | CT Scan Report ---
CT chest wo con, CT abd pelvis wo con CT DOSE: 882.49 mGy.cm CLINICAL HISTORY: 74 years-old Male with ?aspiration pna. Acute shortness of breath with possible as piration pneumonitis. Acute generalized abdominal pain with transaminitis. TECHNIQUE: Multiaxial CT images of the chest, abdomen and pelvis were performed without contrast. A dose lowering technique was utilized adhering to the principles of ALARA. COMPARISON: Chest CT 10/13/2019, CT abdomen pelvis 10/12/2019 FINDINGS: CT CHEST: Streak artifact from right pectoral pacer. Right-sided thyroid goiter. Mild generalized body wall ivy ma. Marked multichamber cardiac enlargement without pericardial effusion. Extensive coronary artery c alcifications. No thoracic aortic aneurysm. Dilation of the main pulmonary artery measuring up to 3.6 cm may reflect pulmonary arterial hypertension. Prominent paratracheal and subcarinal lymph nodes me asure up to 9 mm, likely reactive. Moderate layering pleural effusions. Respiratory motion artifact limits evaluation of the lung parenc hyma. There is mild intralobular septal thickening of the left hemithorax with a few patchy ill-defin ed groundglass opacities. Minimal subsegmental dependent consolidation of the left lower lobe. Subple ural bleb formation of the lung apices. Diffuse interstitial with groundglass and consolidative opaci ties throughout the right lung multisegmental and multilobar distribution with air bronchograms and i ntralobular septal thickening. No obstructing endobronchial lesion identified. Minimal tracheal secre tions. Mild generalized body wall edema. Degenerative changes of the shoulders and spine. No acute fr acture or suspicious bone lesion identified. CT ABDOMEN/PELVIS: There is no pneumatosis or pneumoperitoneum. Study is motion degraded. Limited evaluation without the use of contrast. There is an ill-defined indeterminate 1.8 cm low-density lesion of the anterior spl een which in retrospect is likely unchanged from comparison. Mild thickening of the left adrenal glan d suggests hyperplasia. Normal right adrenal gland. Moderate generalized pancreatic atrophy. Mild per icholecystic edema is likely secondary to volume overload. Mild hepatic steatosis. Otherwise unremark able appearance of the liver. Mild nonspecific bilateral perinephric stranding. Calcifications involving the bilateral renal sinuse s are likely vascular. No ureteral calculi or obstructive uropathy. Decompressed urinary bladder with wall thickening and Malagon catheter in place. Marked prostamegaly redemonstrated measuring up to 7.1 cm transversely. Fat filled left inguinal hernia. A portion of the proximal sigmoid colon partially e xtends into the proximal hernia ostium. Extensive calcified plaque of the abdominal aorta. No adenopa thy. Small volume of abdominal pelvic ascites. No bowel obstruction or bowel wall thickening. Colonic dive rticulosis without acute diverticulitis. Metallic density catheter structures noted within the rectum . Mild generalized body wall edema. Normal appendix. Degenerative changes of the spine, pelvis and hi ps. No acute fracture or suspicious bone lesion. IMPRESSION: 1. Motion degraded exam. 2. Marked cardiomegaly with moderate pleural effusions and suggestion of asymmetric right-sided pulmo nary edema. Additionally, there are right greater than left groundglass opacities with diffuse right lung consolidation and air bronchograms which may reflect associated alveolar pulmonary edema, pneumo bar or aspiration pneumonitis. Follow-up is needed. 3. Mild mediastinal adenopathy, likely reactive. 4. Body wall edema with trace abdominal pelvic ascites is also likely related to volume overload stat us. 5. No bowel obstruction or bowel wall thickening. 6. Hepatic steatosis. 7. Additional findings as above. ACT 112: Negative or not required by law. Electronically signed by: Marshall Ruffin M.D. 12/20/2019 6:41 PM
[2019-12-20] MEDS ORDERED: STAT IV Infusion **Titration per Protocol STA (18:59)
[2019-12-20] MEDS ORDERED: NOREPINEPHRINE BIT INJ 8 MG in DEXTROSE 5% 500 ML IV SCH (19:15)
[2019-12-20] MEDS: HEPARIN SOD 5,000 UNIT/0.5 ML VIAL SQ SCH (20:39)
[2019-12-20] MEDS: FLUOCINONIDE 0.05% OINT 15 GM TUBE EXT SCH (20:40)
[2019-12-20] MEDS ORDERED: FLUOCINONIDE 0.05% OINT 15 GM TUBE EXT SCH (21:00)
[2019-12-20] MEDS ORDERED: HEPARIN SOD 5,000 UNIT/0.5 ML VIAL SQ SCH (21:00)
[2019-12-20] MEDS ORDERED: CEFEPIME 2,000 MG in SYRINGE 7.5 ML IV SCH (22:00)
[2019-12-20] MEDS: CEFEPIME 2,000 MG in SYRINGE 7.5 ML IV SCH (23:54)
[2019-12-21] MEDS ORDERED: DOXYCYCLINE HYCLATE 100 MG in DEXTROSE 5% 100 ML IV SCH
[2019-12-21] MEDS: metroNIDAZOLE 500 MG/100 ML BAG IV SCH (02:03)
[2019-12-21] MEDS: FAMOTIDINE 20 MG in SYRINGE 3 ML IV SCH (03:12)
[2019-12-21 05:13] LABS: Basophils # (auto) 0.01 K/uL (0-0.2); Basophils % (auto) 0.1 %; Eosinophils # (auto) 0.01 K/uL (0-0.5); Eosinophils % (auto) 0.1 %; Hematocrit (blood only) 40.1 % (42-52); Hemoglobin 13.6 g/dL (14.0-18.0); Immature Granulocytes # (auto) 0.11 K/uL (0.00-0.02); Immature Granulocytes % (auto) 0.6 %; Lymphocytes # (auto) 0.67 K/uL (1.2-3.4); Lymphocytes % (auto) 3.5 %; Mean Corpuscular Hemoglobin 31.1 pg (25-34); Mean Corpuscular Hgb Conc 33.9 g/dL (32-36); Mean Corpuscular Volume 91.8 fL (80-100); Mean Platelet Volume 12.2 fL (7.4-10.4); Monocytes # (auto) 0.35 K/uL (0.11-0.59); Monocytes % (auto) 1.8 %; Neutrophils # (auto) 18.02 K/uL (1.4-6.5); Neutrophils % (auto) 93.9 %; Platelet Count 191 K/uL (130-400); RDW Coefficient of Variation 18.7 % (11.5-14.5); Red Blood Count 4.37 M/uL (4.7-6.1); White Blood Count 19.17 K/uL (4.8-10.8)
[2019-12-21 05:43] LABS: INR 1.9 (0.9-1.1); Prothrombin Time 19.3 Seconds (9.0-12.0)
[2019-12-21 05:47] LABS: BUN Creatinine Ratio 42.5 (10-20); Calcium 8.5 mg/dl (8.5-10.1); Est GFR (African American) 38.6; Est GFR (Non-African American) 33.3; Magnesium 2.4 mg/dl (1.8-2.4); Potassium 3.8 mmol/L (3.5-5.1)
[2019-12-21 05:52] LABS: Bilirubin,Total 3.7 mg/dl (0.2-1); Phosphorus 4.4 mg/dl (2.5-4.9); Troponin I 0.031 ng/ml (0-0.045)
[2019-12-21] MEDS ORDERED: VANCOMYCIN HCL 1,250 MG in SODIUM CHLORIDE 0.9% 250 ML IV SCH (08:00)
[2019-12-21] MEDS ORDERED: FAMOTIDINE 20 MG in SYRINGE 3 ML IV SCH (09:00)
[2019-12-21] MEDS ORDERED: CHOLECALCIFEROL 1,000 UNITS 25 MCG TAB PO SCH (09:00)
[2019-12-21] MEDS ORDERED: ASPIRIN 81 MG ECTAB PO SCH (09:00)
--- NOTE | 2019-12-21 09:05 | Critical Care Progress Note ---
Date of Service December 21, 2019 Assessment & Plan (1) S/P admission to ICU (intensive care unit): Patient appears clinically improved today from a respiratory standpoint. He is still requiring a low-dose of Levophed. Will check a lactic acid. His troponin peaked and has now plateaued. Highest level was only 0.033. We are giving him another 500 mL bolus of fluids. CT chest yesterday demonstrated evidence of a right sided infiltrate with bilateral pleural effusions. CT abdomen was generally unremarkable. I discontinuing the Flagyl. MRSA screen was also negative. I am discontinuing the vancomycin. Continue cefepime and doxycycline for now. We will recheck a calcitonin tomorrow. His ROGELIO is also improving. He is making good urine output. Additionally, we will follow his heart rate closely and institute beta blockade if necessary. Malagon is in place. Continue heparin for VT prophylaxis. Continue on famotidine for GI prophylaxis. Patient is a DNR and a DNI. CRITICAL CARE TIME - I have personally spent 35 minutes of critical care time in the direct management of this patient. This is a life/limb threatening event. This includes time spent evaluating patient, direct bedside care, chart review, placing orders, interpretation of diagnostic studies, discussion with consultants, patient, and family members, as well as other required patient management activities. This time is exclusive of all separately billable procedures, and teaching time and separate from and in addition to any other critical care service time. (2) Acute hypoxemic respiratory failure: (3) Aspiration pneumonia: (4) Acute systolic heart failure: (5) Abnormal LFTs: (6) Coagulopathy: (7) Shock: Admission and Anticipated Discharge Date Admission Date: December 20, 2019 Subjective Patient is doing better today. He is more alert and awake. He complains of a dry mouth and is requesting ice water. Denies any chest pain. No fevers overnight. Requiring low-dose mild to levo fed. He is currently on high flow nasal cannula at 30 L and 50% FiO2 saturating in the high 90s. Physical Exam Constitutional: Patient is tachypneic and fatigued appearing. High flow nasal cannula in place. Eyes: PERRL, conjunctivae normal, anicteric sclerae ENMT: external ear and nose normal, oropharynx normal Neck: trachea midline, no thyromegaly Respiratory: Diffuse rhonchi in the right lung mild diminishment in the left lung base Cardiovascular: RRR, no murmur, no edema Gastrointestinal (Abdomen): normal bowel sounds, soft, nontender, no hepatosplenomegaly Musculoskeletal: no cyanosis or clubbing, extremities motor strength 5/5 Skin: no rashes, warm and dry Neurologic: patellar DTR's 2+ bilat, sensation intact Psychiatric: A+Ox3, euthymic affect Genitourinary: Malagon catheter in place Results & Data Results & Data ([facility]) Vital Signs (Past 12 Hours) Vital Signs Pulse Pulse Pulse Resp BP Pulse Ox 12/21/19 07:41 83 20 91 12/21/19 06:31 87 25 H 88/37 L 93 12/21/19 06:25 90 23 90 12/21/19 06:00 78 26 H 95 12/21/19 05:56 83 22 103/61 93 12/21/19 04:56 84 20 84/44 L 91 12/21/19 04:35 84 21 94/57 L 89 L 12/21/19 03:00 90 28 H 82/50 L 91 12/21/19 02:05 80 22 101/65 96 12/21/19 01:47 79 25 H 93/64 L 95 12/21/19 01:21 86 27 H 99/68 L 94 12/21/19 01:00 86 28 H 95 12/21/19 00:05 79 21 98/61 L 92 12/20/19 23:05 81 20 92 12/20/19 23:00 82 28 H 110/60 92 12/20/19 22:21 85 28 H 124/43 L 90 12/20/19 21:49 76 21 90/64 L 94 12/20/19 21:34 81 23 93/60 L 93 12/20/19 21:19 71 21 104/65 94 12/20/19 21:04 77 23 102/71 94 Coding Level of Care Code Critical Care 1st 30-74 mins Diagnoses S/P admission to ICU (intensive care unit) Acute hypoxemic respiratory failure J96.01 Aspiration pneumonia J69.0 Acute systolic heart failure I50.21 Abnormal LFTs R94.5 Coagulopathy D68.9 Shock R57.9 Time Spent (min) 35
[2019-12-21] MEDS ORDERED: SODIUM CHLORIDE 0.9% 1000ML 500 ML IV ONE (09:16)
[2019-12-21] MEDS: HEPARIN SOD 5,000 UNIT/0.5 ML VIAL SQ SCH ×2 (09:53→20:39)
[2019-12-21] MEDS: ASPIRIN 81 MG ECTAB PO SCH (09:55)
[2019-12-21] MEDS: CHOLECALCIFEROL 1,000 UNITS 25 MCG TAB PO SCH (09:55)
[2019-12-21] MEDS: FLUOCINONIDE 0.05% OINT 15 GM TUBE EXT SCH ×2 (09:58→20:38)
--- NOTE | 2019-12-21 11:24 | XRay Report ---
XR chest 1V portable CLINICAL HISTORY: 74 years-old Male presenting with Right PICC line placement. TECHNIQUE: Portable upright AP view of the chest was obtained. COMPARISON: 12/20/2019. FINDINGS: Right upper extremity PICC terminates proximally in the right axillary vein overlapping with the righ t subclavian implanted cardiac defibrillator. ICD leads to the right atrium, right ventricular apex, and left ventricle via the coronary sinus. Several overlying external leads noted. Atherosclerosis of the aortic arch. Cardiac silhouette moderately enlarged. Pulmonary vascular promin ence. Asymmetric dense opacities in the right lung. Slight decreased opacities in the left lung. Decr eased small bilateral pleural effusions now trace. No pneumothorax. Degenerative changes of the thora cic spine. Upper abdomen normal. IMPRESSION: 1. Right upper extremity PICC terminates proximally in the right axillary vein, possibly partially o bstructed by the right subclavian ICD leads. Recommend repositioning. 2. Persistent dense right lung infiltrates. 3. Persistent volume overload. 4. Improved aeration of the left lung base. 5. Decreasing pleural effusions. ACT 112: Negative or not required by law. Electronically signed by: Hong Templeton M.D. 12/21/2019 11:22 AM
[2019-12-21] MEDS: CEFEPIME 2,000 MG in SYRINGE 7.5 ML IV SCH ×2 (13:06→23:33)
--- NOTE | 2019-12-21 17:00 | Hospitalist Progress Note ---
Date of Service December 21, 2019 Assessment & Plan (1) Shock: Suspect combination of septic and cardiogenic. Last echo - 05/2019 - EF 20-25%. Cardiomyopathy is 2nd to ischemia - large area of akinesis on that echo (had [place] 1997 per records). Cannot rule out adrenal insufficiency (chronic fatigue, weakness, cold intolerance) - consider cortisol level. Defer to dermatology specialist for management of blood pressure Was on Levophed-now weaned off blood pressures remain soft Has been given a few small boluses of 500 mL's of normal saline Caution with excess fluids given his severe CHF. (2) Acute respiratory failure with hypoxia: Suspect combination of pneumonia with acute/chronic CHF. Right lung with considerable infiltrate thought to be secondary to aspiration pneumonia COVID-19 negative -Continue cefepime and doxycycline IV vancomycin has been discontinued as MRSA swab is negative -Continue high flow nasal cannula to keep pulse ox greater than 90-92% Patient does not want to be intubated or use BiPAP -Keep n.p.o. for now (3) Sepsis: Secondary to pneumonia -Follow cultures (4) Pneumonia: Likely aspiration pneumonia as above, CT chest with large infiltrate throughout the right side With bilateral pleural effusions -Antibiotics as above (5) Acute on chronic systolic heart failure: Severe CHF - EF 20-25%. With hypotension requiring small boluses of fluid, however with pleural effusions -Continue to hold diuretics, entresto and BB due to shock. -Now off Levophed (6) Coagulopathy: INR was 2 on admission and down to 1.9 He is not on warfarin. Likely vitamin K deficiency vs liver disease vs other. Consider vitamin K supplementation. Platelets are normal making DIC unlikely. Serial INRs. (7) Atrial fibrillation: h/o xarelto use but stopped about 10 days ago due to excessive bleeding. excessive bleeding likely from coagulopathy in the setting of that xarelto use. 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 due to aspiration risk and tachypnea (13) Cold intolerance: TSH wnl, free T4 normal (14) Abnormal LFTs: Total bilirubin down today from 4-3.7, other LFTs normal Direct bilirubin is elevated at 3.0 Looks like biliary stasis -possibly secondary to congestion from CHF -CT abdomen/pelvis with fatty liver Follow LFTs (15) Metabolic encephalopathy: Secondary to presumed sepsis, shock, etc consider cortisol level TSH and T4 normal (16) CAD (coronary artery disease): h/o acute [place] 1997 no recent ischemic symptoms troponin is wnl continue aspirin (17) Leukocytosis: chronic, baseline around 10-12, seen by Heme in past and thought to be reactive -now up due to acute infection -follow CBC (18) DVT prophylaxis: SQ heparin Dispo-continued ICU stay Palliative Care consult Guarded prognosis DNR/DNI Admission and Anticipated Discharge Date Admission Date: December 20, 2019 Subjective Patient reports he feels much better than he did yesterday. Still short of breath. Denies chest pain. He remains on high flow nasal cannula. He has been weaned off Levophed but blood pressures are still soft with map of 69 when I was in the room. Patient does have some suprapubic pain since catheter was placed. Otherwise no nausea. I discussed the case with the dermatology specialist. Review of Systems Review of Systems: All systems reviewed & are unremarkable except as noted in HPI & below Physical Exam Constitutional: + ill appearing and average body habitus Eyes: EOM intact bilaterally; no anisocoria Neck: trachea midline, no thyromegaly Respiratory: + labored breathing and + tachypneic Auscultation: + diminished lung sounds (On right); no wheezes Cardiovascular: Rate/Rhythm: regular rate and regular rhythm Heart Sounds: no murmur Extremities: + edema (Trace pitting edema legs right greater than left) Chest (Breasts): Chest: normal inspection of chest Gastrointestinal (Abdomen): normal bowel sounds, soft, nontender, no hepatosplenomegaly Musculoskeletal: Extremities: extremities normal to inspection Skin: no rashes, warm and dry Neurologic: moves all extremities and awake; no focal motor deficits Lymphatic: no lymphedema Results & Data Results & Data ([facility]) Vital Signs (Past 12 Hours) Vital Signs Temp Pulse Pulse Resp BP Pulse Ox 12/21/19 16:30 77 24 88 L 12/21/19 16:29 78 21 87/58 L 96 12/21/19 16:00 78 25 H 92 12/21/19 15:58 74 26 H 93/54 L 93 12/21/19 15:50 72 23 93 12/21/19 15:40 72 23 94 12/21/19 15:30 79 27 H 93 12/21/19 15:27 77 28 H 88/53 L 95 12/21/19 15:21 74 21 92 12/21/19 15:20 78 22 94 12/21/19 15:12 78 22 91/58 L 94 12/21/19 15:10 83 23 91 12/21/19 14:57 85 29 H 88/60 L 91 12/21/19 14:50 74 23 90 12/21/19 14:42 76 26 H 82/60 L 93 12/21/19 14:40 82 23 93 12/21/19 14:30 80 23 92 12/21/19 14:27 71 20 82/61 L 92 12/21/19 14:15 82 21 91 12/21/19 14:12 81 27 H 97/65 L 90 12/21/19 14:00 87 28 H 91 12/21/19 13:57 88 20 84/69 L 93 12/21/19 13:46 81 27 H 95 12/21/19 13:45 85 26 H 90/61 L 95 12/21/19 13:43 88 29 H 92/56 L 95 12/21/19 13:40 84 28 H 92 12/21/19 13:30 85 21 92 12/21/19 13:27 92 H 17 91/68 L 93 12/21/19 13:20 82 24 95 12/21/19 13:13 82 27 H 94 12/21/19 13:12 90 27 H 114/70 92 12/21/19 13:00 80 31 H 94 12/21/19 12:57 86 22 110/60 91 04/22/20 12:43 94 H 27 H 96 12/21/19 12:42 90 23 96/65 L 97 12/21/19 12:25 91 H 29 H 97/60 L 95 12/21/19 12:00 36 C L 89 27 H 93 12/21/19 11:55 29 H 99/71 L 92 12/21/19 11:25 94 H 25 H 103/64 92 12/21/19 11:21 89 23 91 12/21/19 11:00 90 29 H 92 12/21/19 10:55 84 29 H 93/65 L 92 12/21/19 10:40 85 27 H 91 12/21/19 10:31 86 23 90 12/21/19 10:30 98 H 25 H 93/64 L 92 12/21/19 10:20 90 26 H 91 12/21/19 10:10 89 27 H 89 L 12/21/19 10:00 86 26 H 89 L 12/21/19 09:55 88 26 H 105/64 92 12/21/19 09:50 87 25 H 91 12/21/19 09:40 87 27 H 90 12/21/19 09:30 89 24 89 L 12/21/19 09:26 85 28 H 88/67 L 89 L 12/21/19 09:20 94 H 31 H 86 L 12/21/19 09:10 86 31 H 86 L 12/21/19 09:00 81 20 90 12/21/19 08:55 84 15 87/69 L 92 12/21/19 08:50 85 25 H 88 L 12/21/19 08:40 86 15 91 12/21/19 08:30 90 20 91 12/21/19 08:25 83 17 82/51 L 88 L 12/21/19 08:20 93 H 30 H 81 L 12/21/19 08:10 83 16 97 12/21/19 08:00 85 23 94 12/21/19 07:55 88 24 81/41 L 94 12/21/19 07:53 78 23 84/44 L 94 12/21/19 07:50 81 0 L 94 12/21/19 07:41 83 20 91 12/21/19 07:40 83 10 L 87 L 12/21/19 07:30 85 23 88 L 12/21/19 07:25 80 8 L 69/41 L 89 L 12/21/19 07:20 88 24 92 12/21/19 07:10 78 23 98 12/21/19 07:00 83 15 95 12/21/19 06:55 79 26 H 87/38 L 88 L 12/21/19 06:50 91 H 21 87 L 12/21/19 06:40 95 H 22 83 L 12/21/19 06:37 83 24 88/46 L 89 L 12/21/19 06:34 82 30 H 73/35 L 88 L 12/21/19 06:31 87 25 H 88/37 L 93 12/21/19 06:25 90 23 90 12/21/19 06:00 78 26 H 95 12/21/19 05:56 83 22 103/61 93 Laboratory Results 12/21/19 12/21/19 12/21/19 Range/Units 14:33 08:52 04:56 WBC (4.8-10.8) K/uL RBC (4.7-6.1) M/uL Hgb (14.0-18.0) g/dL Hct (42-52) % MCV (80-100) fL MCH (25-34) pg MCHC (32-36) g/dL RDW Std Deviation (36.4-46.3) fL RDW Coeff of Aliyah (11.5-14.5) % Plt Count (130-400) K/uL MPV (7.4-10.4) fL Immature Gran % (Auto) % Neut % (Auto) % Lymph % (Auto) % [place] % (Auto) % Eos % (Auto) % Baso % (Auto) % Immature Gran # (Auto) (0.00-0.02) K/uL Neut # (Auto) (1.4-6.5) K/uL Lymph # (Auto) (1.2-3.4) K/uL [place] # (Auto) (0.11-0.59) K/uL Eos # (Auto) (0-0.5) K/uL Baso # (Auto) (0-0.2) K/uL PT (9.0-12.0) Seconds INR (0.9-1.1) Sample Site POC pH (7.35-7.45) POC pCO2 (35-46) mmHg POC pO2 (80-95) mmHg POC HCO3 (19-24) jose/L POC Total CO2 (24-31) mmol/L POC Base Excess (-9-1.8) jose/L POC ABG O2 Sat (90-95) % Augie Test O2 Delivery Device POC FiO2 % Sodium 138 (136-145) mmol/L Potassium 3.8 (3.5-5.1) mmol/L Chloride 112 H (98-107) mmol/L Carbon Dioxide 20 L (21-32) mmol/L Anion Gap 6.0 (3-11) BUN 81 H (7-18) mg/dl Creatinine 1.91 H (0.6-1.4) mg/dl Est Cr Clr Drug Dosing 34.0 ml/min Est GFR ( Amer) 38.6 Est GFR (Non-Af Amer) 33.3 BUN/Creatinine Ratio 42.5 H (10-20) Glucose 124 H (70-99) mg/dl POC Glucose 109 H (70-99) mg/dl Lactate 2.3 H* (0.4-2.0) mmol/L Calcium 8.5 (8.5-10.1) mg/dl Phosphorus 4.4 (2.5-4.9) mg/dl Magnesium 2.4 (1.8-2.4) mg/dl Total Bilirubin 3.7 H (0.2-1) mg/dl Direct Bilirubin 3.0 H (0-0.2) mg/dl GGT AST 22 (15-37) U/L ALT 23 (12-78) U/L Alkaline Phosphatase 111 (45-117) U/L Troponin I 0.031 (0-0.045) ng/ml Total Protein 6.0 L (6.4-8.2) gm/dl Albumin 2.0 L (3.4-5.0) gm/dl Lipase (73-393) U/L 12/21/19 12/21/19 12/20/19 Range/Units 04:56 04:56 22:59 WBC 19.17 H (4.8-10.8) K/uL RBC 4.37 L (4.7-6.1) M/uL Hgb 13.6 L (14.0-18.0) g/dL Hct 40.1 L (42-52) % MCV 91.8 (80-100) fL MCH 31.1 (25-34) pg MCHC 33.9 (32-36) g/dL RDW Std Deviation 62.0 H (36.4-46.3) fL RDW Coeff of Aliyah 18.7 H (11.5-14.5) % Plt Count 191 (130-400) K/uL MPV 12.2 H (7.4-10.4) fL Immature Gran % (Auto) 0.6 % Neut % (Auto) 93.9 % Lymph % (Auto) 3.5 % [place] % (Auto) 1.8 % Eos % (Auto) 0.1 % Baso % (Auto) 0.1 % Immature Gran # (Auto) 0.11 H (0.00-0.02) K/uL Neut # (Auto) 18.02 H (1.4-6.5) K/uL Lymph # (Auto) 0.67 L (1.2-3.4) K/uL [place] # (Auto) 0.35 (0.11-0.59) K/uL Eos # (Auto) 0.01 (0-0.5) K/uL Baso # (Auto) 0.01 (0-0.2) K/uL PT 19.3 H (9.0-12.0) Seconds INR 1.9 H (0.9-1.1) Sample Site POC pH (7.35-7.45) POC pCO2 (35-46) mmHg POC pO2 (80-95) mmHg POC HCO3 (19-24) jose/L POC Total CO2 (24-31) mmol/L POC Base Excess (-9-1.8) jose/L POC ABG O2 Sat (90-95) % Augie Test O2 Delivery Device POC FiO2 % Sodium (136-145) mmol/L Potassium (3.5-5.1) mmol/L Chloride (98-107) mmol/L Carbon Dioxide (21-32) mmol/L Anion Gap (3-11) BUN (7-18) mg/dl Creatinine (0.6-1.4) mg/dl Est Cr Clr Drug Dosing ml/min Est GFR ( Amer) Est GFR (Non-Af Amer) BUN/Creatinine Ratio (10-20) Glucose (70-99) mg/dl POC Glucose (70-99) mg/dl Lactate (0.4-2.0) mmol/L Calcium (8.5-10.1) mg/dl Phosphorus (2.5-4.9) mg/dl Magnesium (1.8-2.4) mg/dl Total Bilirubin (0.2-1) mg/dl Direct Bilirubin (0-0.2) mg/dl GGT AST (15-37) U/L ALT (12-78) U/L Alkaline Phosphatase (45-117) U/L Troponin I 0.033 (0-0.045) ng/ml Total Protein (6.4-8.2) gm/dl Albumin (3.4-5.0) gm/dl Lipase (73-393) U/L 12/20/19 12/20/19 12/20/19 Range/Units 17:32 17:20 17:18 WBC (4.8-10.8) K/uL RBC (4.7-6.1) M/uL Hgb (14.0-18.0) g/dL Hct (42-52) % MCV (80-100) fL MCH (25-34) pg MCHC (32-36) g/dL RDW Std Deviation (36.4-46.3) fL RDW Coeff of Aliyah (11.5-14.5) % Plt Count (130-400) K/uL MPV (7.4-10.4) fL Immature Gran % (Auto) % Neut % (Auto) % Lymph % (Auto) % [place] % (Auto) % Eos % (Auto) % Baso % (Auto) % Immature Gran # (Auto) (0.00-0.02) K/uL Neut # (Auto) (1.4-6.5) K/uL Lymph # (Auto) (1.2-3.4) K/uL [place] # (Auto) (0.11-0.59) K/uL Eos # (Auto) (0-0.5) K/uL Baso # (Auto) (0-0.2) K/uL PT (9.0-12.0) Seconds INR (0.9-1.1) Sample Site R Brachial POC pH 7.38 (7.35-7.45) POC pCO2 28 L (35-46) mmHg POC pO2 109 H (80-95) mmHg POC HCO3 17 L (19-24) jose/L POC Total CO2 17 L (24-31) mmol/L POC Base Excess -9.0 (-9-1.8) jose/L POC ABG O2 Sat 98.0 H (90-95) % Augie Test Pass O2 Delivery Device Hi Vasiliy Can POC FiO2 100 % Sodium (136-145) mmol/L Potassium (3.5-5.1) mmol/L Chloride (98-107) mmol/L Carbon Dioxide (21-32) mmol/L Anion Gap (3-11) BUN (7-18) mg/dl Creatinine (0.6-1.4) mg/dl Est Cr Clr Drug Dosing ml/min Est GFR ( Amer) Est GFR (Non-Af Amer) BUN/Creatinine Ratio (10-20) Glucose (70-99) mg/dl POC Glucose (70-99) mg/dl Lactate (0.4-2.0) mmol/L Calcium (8.5-10.1) mg/dl Phosphorus (2.5-4.9) mg/dl Magnesium (1.8-2.4) mg/dl Total Bilirubin (0.2-1) mg/dl Direct Bilirubin (0-0.2) mg/dl GGT Pending AST (15-37) U/L ALT (12-78) U/L Alkaline Phosphatase (45-117) U/L Troponin I 0.026 (0-0.045) ng/ml Total Protein (6.4-8.2) gm/dl Albumin (3.4-5.0) gm/dl Lipase 31 L (73-393) U/L Diagnostic Findings Chest x-ray image personally reviewed by me and agree with the following report: XR chest 1V portable CLINICAL HISTORY: Dyspnea COMPARISON STUDY: 11/08/2019 FINDINGS: Moderate stable cardiomegaly. Components of congestive heart failure present. This is asymmetrically prominent on the right raising the possibility of a superimposed infiltrate. Bipolar cardiac pacemaker/defibrillator unchanged in location. IMPRESSION: 1. Findings of progressive congestive heart failure versus a diffuse superimposed infiltrate of the right hemithorax. PG Care Time/CCT Total # of Minutes Spent Total Time Spent with Patient: Total time spent is greater than 50% in coordination of care (as documented) at patient's floor/unit and/or counseling patient: Coding Level of Care Code 63170 Subseq Hosp Care Lvl 2 Diagnoses Shock R57.9 Acute respiratory failure with hypoxia J96.01 Sepsis A41.9 Pneumonia J18.9 Laterality: right Lung location: unspecified part of lung Pneumonia type: due to unspecified organism Acute on chronic systolic heart failure I50.23 Coagulopathy D68.9 Atrial fibrillation I48.91 ICD (implantable cardioverter-defibrillator) in place Z95.810 Chronic kidney disease, stage 3 (moderate) N18.3 Diabetes mellitus type 2 with complications E11.8 Hypertension I10 Severe protein-calorie malnutrition E43 Cold intolerance R68.89 Abnormal LFTs R94.5 Metabolic encephalopathy G93.41 CAD (coronary artery disease) I25.10 Leukocytosis D72.829 DVT prophylaxis Z29.9 (1) Pneumonia Laterality: right Lung location: unspecified part of lung Pneumonia type: due to unspecified organism Qualified Code(s): J18.9 - Pneumonia, unspecified organism
[2019-12-22 04:14] LABS: Basophils # (auto) 0.01 K/uL (0-0.2); Basophils % (auto) 0.1 %; Eosinophils # (auto) 0.04 K/uL (0-0.5); Eosinophils % (auto) 0.3 %; Hematocrit (blood only) 40.6 % (42-52); Hemoglobin 13.1 g/dL (14.0-18.0); Immature Granulocytes # (auto) 0.07 K/uL (0.00-0.02); Immature Granulocytes % (auto) 0.4 %; Lymphocytes # (auto) 0.58 K/uL (1.2-3.4); Lymphocytes % (auto) 3.7 %; Mean Corpuscular Hemoglobin 29.8 pg (25-34); Mean Corpuscular Hgb Conc 32.3 g/dL (32-36); Mean Corpuscular Volume 92.5 fL (80-100); Mean Platelet Volume 11.7 fL (7.4-10.4); Monocytes # (auto) 0.31 K/uL (0.11-0.59); Neutrophils % (auto) 93.5 %; Platelet Count 147 K/uL (130-400); RDW Coefficient of Variation 18.7 % (11.5-14.5); RDW Standard Deviation 62.6 fL (36.4-46.3); Red Blood Count 4.39 M/uL (4.7-6.1); White Blood Count 15.61 K/uL (4.8-10.8)
[2019-12-22 04:23] LABS: INR 2.2 (0.9-1.1); Prothrombin Time 22.2 Seconds (9.0-12.0)
[2019-12-22 04:33] LABS: Albumin Level 1.9 gm/dl (3.4-5.0); BUN Creatinine Ratio 46.2 (10-20); Bilirubin Direct 3.5 mg/dl (0-0.2); Calcium 8.8 mg/dl (8.5-10.1); Est GFR (African American) 41.4; Est GFR (Non-African American) 35.8; Magnesium 2.6 mg/dl (1.8-2.4); Potassium 4.1 mmol/L (3.5-5.1)
[2019-12-22 04:35] LABS: Bilirubin,Total 4.2 mg/dl (0.2-1); Phosphorus 4.7 mg/dl (2.5-4.9)
--- NOTE | 2019-12-22 07:05 | XRay Report ---
XR chest 1V portable CLINICAL HISTORY: f/u dyspnea COMPARISON STUDY: 12/21/2019 FINDINGS: Findings of a slightly progressive components of pulmonary edema versus diffuse bilateral p arenchymal infiltrative change. Heart remains enlarged. Pacemaker leads remain intact and unchanged. IMPRESSION: Mildly progressive component of pulmonary edema ACT 112: Negative or not required by law. The above report was generated using voice recognition software. It may contain grammatical, syntax or spelling errors. Electronically signed by: Junito Leon M.D. 12/22/2019 7:04 AM
[2019-12-22] MEDS ORDERED: FAMOTIDINE 20 MG in SYRINGE 3 ML IV SCH (08:00)
[2019-12-22] MEDS: CHOLECALCIFEROL 1,000 UNITS 25 MCG TAB PO SCH (08:08)
[2019-12-22] MEDS: ASPIRIN 81 MG ECTAB PO SCH (08:08)
[2019-12-22] MEDS: HEPARIN SOD 5,000 UNIT/0.5 ML VIAL SQ SCH ×2 (08:08→21:15)
[2019-12-22] MEDS: FLUOCINONIDE 0.05% OINT 15 GM TUBE EXT SCH ×2 (08:09→21:18)
--- NOTE | 2019-12-22 08:14 | Critical Care Progress Note ---
Date of Service December 22, 2019 Assessment & Plan (1) S/P admission to ICU (intensive care unit): Patient is currently off pressors. He appears more somnolent today. Respiratory status is about stable from yesterday. Chest x-ray with continued large infiltrate on the right. Procalcitonin modestly improved. Continue cefepime. We discontinued doxycycline and Flagyl yesterday. Going to hold on diuresis today as he still appears fairly euvolemic and is borderline hypotensive. We will see if we can start a diet on him tomorrow, however, he appears quite cycling currently. Palliative care consultation has been placed. Malagon is in place. Continue heparin for VT prophylaxis. Continue on famotidine for GI prophylaxis. Patient is a DNR and a DNI. CRITICAL CARE TIME - I have personally spent 30 minutes of critical care time in the direct management of this patient. This is a life/limb threatening event. This includes time spent evaluating patient, direct bedside care, chart review, placing orders, interpretation of diagnostic studies, discussion with consultants, patient, and family members, as well as other required patient management activities. This time is exclusive of all separately billable procedures, and teaching time and separate from and in addition to any other critical care service time. (2) Acute hypoxemic respiratory failure: (3) Aspiration pneumonia: (4) Acute systolic heart failure: (5) Abnormal LFTs: (6) Coagulopathy: (7) Shock: Admission and Anticipated Discharge Date Admission Date: December 20, 2019 Subjective Patient is lying in bed. He appears more somnolent today. Mildly tachypneic. Able to tell me his name and the year. No events overnight. Currently on 45% FiO2 and 30 L of flow. Saturating 91%. Physical Exam Constitutional: + ill appearing and average body habitus Eyes: EOM intact bilaterally; no anisocoria Neck: trachea midline, no thyromegaly Respiratory: + labored breathing and + tachypneic Auscultation: + diminished lung sounds (On right); no wheezes Cardiovascular: Rate/Rhythm: regular rate and regular rhythm Heart Sounds: no murmur Extremities: + edema (Trace pitting edema legs right greater than left) Chest (Breasts): Chest: normal inspection of chest Gastrointestinal (Abdomen): normal bowel sounds, soft, nontender, no hepatosplenomegaly Musculoskeletal: Extremities: extremities normal to inspection Skin: no rashes, warm and dry Neurologic: moves all extremities and awake; no focal motor deficits Lymphatic: no lymphedema Results & Data Results & Data ([facility]) Vital Signs (Past 12 Hours) Vital Signs Temp Pulse Pulse Pulse Resp BP Pulse Ox 12/22/19 07:00 71 20 91 12/22/19 06:58 78 20 88/61 L 91 12/22/19 06:49 76 18 95 12/22/19 06:30 75 18 92 12/22/19 06:29 70 20 97/65 L 93 12/22/19 06:01 77 19 12/22/19 06:00 72 14 82/59 L 12/22/19 05:30 73 17 93 12/22/19 05:28 79 19 80/54 L 88 L 12/22/19 05:00 80 22 91 12/22/19 04:59 81 21 98/57 L 92 12/22/19 04:30 87 23 75 L 12/22/19 04:28 88 26 H 84/63 L 84 L 12/22/19 04:00 97.7 F 86 31 H 88 L 12/22/19 03:58 86 20 90/63 L 91 12/22/19 03:30 83 23 12/22/19 03:28 79 20 91/50 L 12/22/19 03:10 89 17 91 12/22/19 03:01 86 23 86 L 12/22/19 03:00 93 H 22 77/47 L 87 L 12/22/19 02:30 92 H 28 H 91 12/22/19 02:28 89 28 H 89/65 L 91 12/22/19 02:00 93 H 22 91 12/22/19 01:59 90 29 H 98/69 L 12/22/19 01:43 88 23 91 12/22/19 01:42 94 H 34 H 87/72 L 85 L 12/22/19 01:30 84 28 H 91 12/22/19 01:28 87 25 H 87/72 L 92 12/22/19 01:00 93 H 29 H 85 L 12/22/19 00:58 88 30 H 101/64 88 L 12/22/19 00:30 90 22 92 12/22/19 00:28 84 29 H 89/66 L 92 12/22/19 00:00 98.1 F 80 25 H 89 L 12/21/19 23:58 90 22 90/65 L 91 12/21/19 23:30 84 24 94 12/21/19 23:28 79 22 96/66 L 95 12/21/19 23:00 85 25 H 91 12/21/19 22:58 81 25 H 89/58 L 90 12/21/19 22:37 85 22 92 12/21/19 22:30 79 24 93 12/21/19 22:28 76 25 H 96/55 L 95 12/21/19 21:58 80 24 82/54 L 91 12/21/19 21:36 89 22 81/58 L 93 12/21/19 21:29 83 23 75/56 L 93 12/21/19 20:29 85 23 99/61 L 91 Coding Level of Care Code Critical Care 1st 30-74 mins Diagnoses S/P admission to ICU (intensive care unit) Acute hypoxemic respiratory failure J96.01 Aspiration pneumonia J69.0 Acute systolic heart failure I50.21 Abnormal LFTs R94.5 Coagulopathy D68.9 Shock R57.9 Time Spent (min) 30
[2019-12-22] MEDS: DEXTROSE 5% 1,000 ML IV SCH (09:58)
--- NOTE | 2019-12-22 13:20 | Palliative Care Consultation ---
Date of Consultation December 22, 2019 Assessment & Plan (1) Goals of care, counseling/discussion: -79 year old male patient with PMH type 2 diabetes, currently not on any medications, HLD, KARLEE, paroxysmal atrial fibrillation, hypertension, right bundle branch block, ischemic cardiomyopathy, CAD, chronic systolic and diastolic CHF, end-stage renal disease on hemodialysis, thoracic aortic aneurysm, GERD, osteoarthritis of multiple joints, anemia of chronic kidney disease, CAD status post CABG, history of prostate cancer, history of stroke, depression, ambulatory dysfunction, and others, presented to the hospital two days ago from [facility] rehab with AV fistula dysfunction. The ED spoke with vascular surgeon and they were planning to do procedure the next day, but patient's troponin was noted to be 9.7. Echocadiogram was done which shows EF 20-25%, mild TR, moderate MR, global hypokinesis and akinesis of inferolateral wall. EF was 40% in July 2019. Cardiology consulted who stated, "Patient has had a non-STEMI due to supply demand mismatch, in the setting of underlying i schemic heart disease, volume overload, ESRD for which he is on chronic hemodialysis." Patient was asymptoatic with no chest pain, he placed on heparin gtt and admitted. Vascular surgery is of course consulted, and placed a temporary dialysis catheter on 12/19. Patient is deemed high surgical risk, so holding off on surgical revision of fistula at this time. Patient undergoing dialysis today-- is still mildly volume overloaded and c/o some SOB. Physician discussed code status with patient and -- they wish for him to be full code, but also states she would not want him to be on life support. Palliative care is consulted to clarify goals of care. (2) Acute systolic heart failure: (3) Acute hypoxemic respiratory failure: (4) Shock: History of Present Illness Attending Physician: Laly Guido MD Allergies Allergy/AdvReac Type Severity Reaction Status Date / Time [id number]-Cfv Reductase Allergy Intermediate myalgia Verified 12/20/19 10:18 Inhibitor bee venom protein (honey bee) Allergy Unknown yellow Verified 12/20/19 10:18 jacket Penicillins Allergy Unknown Unknown Verified 12/20/19 10:18 levofloxacin AdvReac Intermediate nightmares Verified 12/20/19 10:18 Home Medications Home Medications Medication Instructions Recorded Confirmed Type metoprolol succinate 25 mg 25 mg PO DAILY #90 tab 03/17/19 12/20/19 Rx tablet,extended release 24 hr aspirin [Aspir-81] 81 mg PO DAILY 06/11/19 12/20/19 History cholecalciferol (vitamin D3) 125 5,000 units PO DAILY cap 08/09/19 12/20/19 History mcg (5,000 unit) capsule loperamide [Imodium A-D] 2 mg PO DIRECTED PRN 08/20/19 12/20/19 History metolazone 2.5 mg tablet 2.5 mg PO DAILY PRN tab 09/28/19 12/20/19 History potassium chloride 20 mEq 20 meq PO DAILY #90 tab 10/07/19 12/20/19 Rx tablet,extended release fluocinonide 0.05 % topical 1 appln TOP BID #60 gm 10/18/19 12/20/19 Rx ointment glipizide 5 mg tablet 5 mg PO DAILY 10/27/19 12/20/19 History nitroglycerin 400 mcg/spray 1 sprays SL .COMPLEX PRN #4.9 gm 10/28/19 12/20/19 Rx translingual sacubitril 24 mg-valsartan 26 mg 0.5 tab PO BID #180 tab 11/10/19 12/20/19 Rx tablet furosemide 40 mg tablet 40 mg PO BID #180 tab 12/06/19 12/20/19 Rx Patient History Medical History (Updated 12/20/19 @ 17:18 by Anjel Camejo MD) Abnormal CT of the chest Acute hypoxemic respiratory failure Acute systolic heart failure Anemia Arteriosclerotic cardiovascular disease (Acute) Aspiration pneumonia Atrial fibrillation (Chronic) CAD (coronary artery disease) Central hypothyroidism Chronic kidney disease, stage 3 (moderate) (Chronic) Chronic systolic congestive heart failure (Acute) 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) Dyslipidemia (Acute) Gout (Acute) History of pacemaker Hypertension (Acute) ICD (implantable cardioverter-defibrillator) in place (Acute 09/02/11) Ischemic cardiomyopathy (Acute) Left bundle branch block (LBBB) (Acute) Multinodular goiter (Acute) Old myocardial infarction (Acute) Paroxysmal ventricular tachycardia (Acute) S/P admission to ICU (intensive care unit) Solitary thyroid nodule (Acute) Sulfonylurea poisoning (Inactive ~08/22/19) Vitamin D deficiency (Acute) Surgical History H/O hand surgery L index finger History of ankle surgery S/P foot surgery S/P knee surgery L patella fx repair Family History Father , age 58 Myocardial infarction Family/Other Heart disease Hypertension Dyslipidemia Mother , of "old age" - 98 No problems noted. 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 [employer] Feels Safe at Home: Yes Safety Concerns: Feels Safe At This Time Smoking Status: Former smoker Tobacco Type: cigarettes ; Age Started Using Tobacco: 13 ; packs per day: 1 ; Do You Dip or Chew Tobacco: No ; Smoking End Date: 1999 ; Second Hand Exposure: No ; Tobacco Cessation Education Requested by Patient: No Hx Alcohol Use: Yes Alcohol type: wine Alcohol type Comment: stopped drinking, however, several months ago Hx Substance Use: No Childhood Exposure to Second-Hand Smoke: Yes caffeine: No during the past year weight has: remained stable Dental Care, Regularly: Yes Physical Activity Frequency: Does not Exercise Seatbelt Use: always Sunscreen Use: Yes Results & Data Vital Signs (Past 12 Hours) Vital Signs Temp Pulse Pulse Pulse Resp BP Pulse Ox 12/22/19 10:35 81 22 93 12/22/19 08:00 71 12/22/19 07:59 79 25 H 86/61 L 97 12/22/19 07:28 36.5 C 78 16 92/74 L 96 12/22/19 07:00 71 20 91 12/22/19 06:58 78 20 88/61 L 91 12/22/19 06:49 76 18 95 12/22/19 06:30 75 18 92 12/22/19 06:29 70 20 97/65 L 93 12/22/19 06:01 77 19 12/22/19 06:00 72 14 82/59 L 12/22/19 05:30 73 17 93 12/22/19 05:28 79 19 80/54 L 88 L 12/22/19 05:00 80 22 91 12/22/19 04:59 81 21 98/57 L 92 12/22/19 04:30 87 23 75 L 12/22/19 04:28 88 26 H 84/63 L 84 L 12/22/19 04:00 36.5 C 86 31 H 88 L 12/22/19 03:58 86 20 90/63 L 91 12/22/19 03:30 83 23 12/22/19 03:28 79 20 91/50 L 12/22/19 03:10 89 17 91 12/22/19 03:01 86 23 86 L 12/22/19 03:00 93 H 22 77/47 L 87 L 12/22/19 02:30 92 H 28 H 91 12/22/19 02:28 89 28 H 89/65 L 91 12/22/19 02:00 93 H 22 91 12/22/19 01:59 90 29 H 98/69 L 12/22/19 01:43 88 23 91 12/22/19 01:42 94 H 34 H 87/72 L 85 L 12/22/19 01:30 84 28 H 91 12/22/19 01:28 87 25 H 87/72 L 92 PG Care Time/CCT Total # of Minutes Spent Total Time Spent with Patient: Total time spent is greater than 50% in coordination of care (as documented) at patient's floor/unit and/or counseling patient: Coding Diagnoses Goals of care, counseling/discussion Z71.89 Acute systolic heart failure I50.21 Acute hypoxemic respiratory failure J96.01 Shock R57.9
[2019-12-22] MEDS: CEFEPIME 2,000 MG in SYRINGE 7.5 ML IV SCH (13:25)
--- NOTE | 2019-12-22 15:59 | Hospitalist Progress Note ---
Date of Service December 22, 2019 Assessment & Plan (1) Shock: Suspect combination of septic and cardiogenic. Improving, blood pressures are improved and he remains off Levophed Last echo - 05/2019 - EF 20-25%. Cardiomyopathy is 2nd to ischemia - large area of akinesis on that echo (had GA 1997 per records). Has been given a few small boluses of 500 mL's of normal saline Caution with excess fluids given his severe CHF. -Continue to hold home antihypertensives -Stable for transfer out of the ICU on 12/21 (2) Acute respiratory failure with hypoxia: Suspect combination of pneumonia with acute/chronic CHF. Right lung with considerable infiltrate thought to be secondary to aspiration pneumonia COVID-19 negative Appreciate pulmonary/critical care management Now weaned off high flow nasal cannula to 5 L nasal cannula -Continue cefepime but doxycycline and vancomycin have since been discontinued -Continue nasal cannula to keep pulse ox greater than 90-92% Patient does not want to be intubated or use BiPAP -Keep n.p.o. for now until evaluated by speech (3) Sepsis: Secondary to pneumonia -Follow cultures-no growth to date (4) Pneumonia: Likely aspiration pneumonia as above, CT chest with large infiltrate throughout the right side With bilateral pleural effusions Procalcitonin remains elevated but trending downward to 2.19 -Antibiotics as above -Follow chest x-ray (5) Acute on chronic systolic heart failure: Severe CHF - EF 20-25%. With hypotension requiring small boluses of fluid, however with pleural effusions -Continue to hold diuretics, entresto and BB due to shock. -Now off Levophed -Follow daily weights, I's and O's -We will attempt to add diuretic back on and beta-beatriz (6) Coagulopathy: INR remains elevated likely secondary to hepatic congestion from shock given elevated bilirubin He is not on warfarin. Could also have vitamin K deficiency Consider vitamin K supplementation. Platelets are normal making DIC unlikely. Serial INRs. (7) Atrial fibrillation: h/o xarelto use but stopped about 10 days prior to admission due to excessive bleeding. excessive bleeding likely from coagulopathy in the setting of that xarelto use. (8) ICD (implantable cardioverter-defibrillator) in place: noted, biventricular recent interrogation done as outpatient by cardiology Pacing on telemetry here (9) Chronic kidney disease, stage 3 (moderate): baseline Cr about 1.5 to 1.7 Creatinine greater than 2 on admission and is now continuing to improve down to 1.8, mild acidosis with bicarbonate of 20 now improved to 22 after giving a couple of small boluses of normal saline etiology of acute kidney injury - cardiorenal vs sepsis-associated or combination supportive care bmp am (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: a1c 5.6% in Oct 2019 with his weight loss his T2DM has essentially resolved follow BSGs (11) Hypertension: now with shock/hypotension Continue to HOLD home meds (12) Severe protein-calorie malnutrition: 30-40 pounds of weight loss since 2019 occult malignancy possible versus end-stage heart failure address in the future as outpatient if desired by patient -Is currently n.p.o. due to aspiration risk and tachypnea (13) Cold intolerance: TSH wnl, free T4 normal (14) Abnormal LFTs: Total bilirubin up again today to 4.2 with elevated direct bilirubin, other LFTs normal Direct bilirubin is elevated at 3.0 Looks like biliary stasis -possibly secondary to congestion from CHF -CT abdomen/pelvis with fatty liver Follow LFTs (15) Metabolic encephalopathy: Secondary to presumed sepsis, shock, etc. Improving slightly today TSH and T4 normal (16) CAD (coronary artery disease): h/o acute GA 1997 no recent ischemic symptoms troponin is wnl continue aspirin (17) Leukocytosis: chronic, baseline around 10-12, seen by Maggi in past and thought to be reactive -now up due to acute infection but continues to trend downward today to 15 -follow CBC (18) DVT prophylaxis: SQ heparin Dispo-stable for downgrade out of the ICU to telemetry Palliative Care consult pending Guarded prognosis DNR/DNI Admission and Anticipated Discharge Date Admission Date: December 20, 2019 Subjective Patient reports not feeling that well. Was weaned off high flow nasal cannula to 5 L O2 later in the afternoon and was stable for transfer to the ICU. He denies chest pains or abdominal pains. He was still lethargic this morning and needs to be evaluated by speech to see if he is safe to swallow. Paced rhythm on telemetry Review of Systems Review of Systems: All systems reviewed & are unremarkable except as noted in HPI & below Physical Exam Constitutional: + ill appearing and average body habitus Eyes: EOM intact bilaterally; no anisocoria Neck: trachea midline, no thyromegaly Respiratory: + labored breathing and + tachypneic Auscultation: + diminished lung sounds (On right) and + crackles (Throughout the right side); no wheezes Cardiovascular: Rate/Rhythm: regular rate and regular rhythm Heart Sounds: no murmur Extremities: + edema (Trace pitting edema legs right greater than left) Chest (Breasts): Chest: normal inspection of chest Gastrointestinal (Abdomen): normal bowel sounds, soft, nontender, no hepatosplenomegaly Musculoskeletal: Extremities: extremities normal to inspection Skin: no rashes, warm and dry Neurologic: moves all extremities, awake and + confused (Mildly confused); no focal motor deficits Lymphatic: no lymphedema Results & Data Results & Data ([facility]) Vital Signs (Past 12 Hours) Vital Signs Temp Pulse Pulse Resp BP Pulse Ox 12/22/19 14:32 86 21 97/63 L 97 12/22/19 13:30 88 22 99/71 L 91 12/22/19 12:30 36.5 C 79 21 98/61 L 92 12/22/19 11:30 78 21 90/55 L 94 12/22/19 10:35 81 22 93 12/22/19 10:30 73 18 94/59 L 91 12/22/19 10:04 68 19 90/58 L 94 12/22/19 08:00 71 12/22/19 07:59 79 25 H 86/61 L 97 12/22/19 07:28 36.5 C 78 16 92/74 L 96 12/22/19 07:00 71 20 91 12/22/19 06:58 78 20 88/61 L 91 12/22/19 06:49 76 18 95 12/22/19 06:30 75 18 92 12/22/19 06:29 70 20 97/65 L 93 12/22/19 06:01 77 19 12/22/19 06:00 72 14 82/59 L 12/22/19 05:30 73 17 93 12/22/19 05:28 79 19 80/54 L 88 L 12/22/19 05:00 80 22 91 12/22/19 04:59 81 21 98/57 L 92 12/22/19 04:30 87 23 75 L 12/22/19 04:28 88 26 H 84/63 L 84 L 12/22/19 04:00 36.5 C 86 31 H 88 L Laboratory Results 12/22/19 12/22/19 12/22/19 Range/Units 13:18 06:09 04:07 WBC (4.8-10.8) K/uL RBC (4.7-6.1) M/uL Hgb (14.0-18.0) g/dL Hct (42-52) % MCV (80-100) fL MCH (25-34) pg MCHC (32-36) g/dL RDW Std Deviation (36.4-46.3) fL RDW Coeff of Aliyah (11.5-14.5) % Plt Count (130-400) K/uL MPV (7.4-10.4) fL Immature Gran % (Auto) % Neut % (Auto) % Lymph % (Auto) % [place] % (Auto) % Eos % (Auto) % Baso % (Auto) % Immature Gran # (Auto) (0.00-0.02) K/uL Neut # (Auto) (1.4-6.5) K/uL Lymph # (Auto) (1.2-3.4) K/uL [place] # (Auto) (0.11-0.59) K/uL Eos # (Auto) (0-0.5) K/uL Baso # (Auto) (0-0.2) K/uL PT (9.0-12.0) Seconds INR (0.9-1.1) Sodium (136-145) mmol/L Potassium (3.5-5.1) mmol/L Chloride (98-107) mmol/L Carbon Dioxide (21-32) mmol/L Anion Gap (3-11) BUN (7-18) mg/dl Creatinine (0.6-1.4) mg/dl Est Cr Clr Drug Dosing ml/min Est GFR ( Amer) Est GFR (Non-Af Amer) BUN/Creatinine Ratio (10-20) Glucose (70-99) mg/dl POC Glucose 72 70 (70-99) mg/dl Lactate 1.6 (0.4-2.0) mmol/L Calcium (8.5-10.1) mg/dl Phosphorus (2.5-4.9) mg/dl Magnesium (1.8-2.4) mg/dl Total Bilirubin (0.2-1) mg/dl Direct Bilirubin (0-0.2) mg/dl GGT (3-70) U/L AST (15-37) U/L ALT (12-78) U/L Alkaline Phosphatase (45-117) U/L Total Protein (6.4-8.2) gm/dl Albumin (3.4-5.0) gm/dl Procalcitonin (0-0.5) ng/ml 12/22/19 12/22/19 12/22/19 Range/Units 04:07 04:07 04:07 WBC 15.61 H (4.8-10.8) K/uL RBC 4.39 L (4.7-6.1) M/uL Hgb 13.1 L (14.0-18.0) g/dL Hct 40.6 L (42-52) % MCV 92.5 (80-100) fL MCH 29.8 (25-34) pg MCHC 32.3 (32-36) g/dL RDW Std Deviation 62.6 H (36.4-46.3) fL RDW Coeff of Aliyah 18.7 H (11.5-14.5) % Plt Count 147 (130-400) K/uL MPV 11.7 H (7.4-10.4) fL Immature Gran % (Auto) 0.4 % Neut % (Auto) 93.5 % Lymph % (Auto) 3.7 % [place] % (Auto) 2.0 % Eos % (Auto) 0.3 % Baso % (Auto) 0.1 % Immature Gran # (Auto) 0.07 H (0.00-0.02) K/uL Neut # (Auto) 14.60 H (1.4-6.5) K/uL Lymph # (Auto) 0.58 L (1.2-3.4) K/uL [place] # (Auto) 0.31 (0.11-0.59) K/uL Eos # (Auto) 0.04 (0-0.5) K/uL Baso # (Auto) 0.01 (0-0.2) K/uL PT (9.0-12.0) Seconds INR (0.9-1.1) Sodium 139 (136-145) mmol/L Potassium 4.1 (3.5-5.1) mmol/L Chloride 113 H (98-107) mmol/L Carbon Dioxide 22 (21-32) mmol/L Anion Gap 4.0 (3-11) BUN 83 H (7-18) mg/dl Creatinine 1.80 H (0.6-1.4) mg/dl Est Cr Clr Drug Dosing 36.0 ml/min Est GFR ( Amer) 41.4 Est GFR (Non-Af Amer) 35.8 BUN/Creatinine Ratio 46.2 H (10-20) Glucose 79 (70-99) mg/dl POC Glucose (70-99) mg/dl Lactate (0.4-2.0) mmol/L Calcium 8.8 (8.5-10.1) mg/dl Phosphorus 4.7 (2.5-4.9) mg/dl Magnesium 2.6 H (1.8-2.4) mg/dl Total Bilirubin 4.2 H (0.2-1) mg/dl Direct Bilirubin 3.5 H (0-0.2) mg/dl GGT (3-70) U/L AST 24 (15-37) U/L ALT 20 (12-78) U/L Alkaline Phosphatase 101 (45-117) U/L Total Protein 6.0 L (6.4-8.2) gm/dl Albumin 1.9 L (3.4-5.0) gm/dl Procalcitonin 2.19 H (0-0.5) ng/ml 12/22/19 12/22/19 12/21/19 Range/Units 04:06 01:09 23:37 WBC (4.8-10.8) K/uL RBC (4.7-6.1) M/uL Hgb (14.0-18.0) g/dL Hct (42-52) % MCV (80-100) fL MCH (25-34) pg MCHC (32-36) g/dL RDW Std Deviation (36.4-46.3) fL RDW Coeff of Aliyah (11.5-14.5) % Plt Count (130-400) K/uL MPV (7.4-10.4) fL Immature Gran % (Auto) % Neut % (Auto) % Lymph % (Auto) % [place] % (Auto) % Eos % (Auto) % Baso % (Auto) % Immature Gran # (Auto) (0.00-0.02) K/uL Neut # (Auto) (1.4-6.5) K/uL Lymph # (Auto) (1.2-3.4) K/uL [place] # (Auto) (0.11-0.59) K/uL Eos # (Auto) (0-0.5) K/uL Baso # (Auto) (0-0.2) K/uL PT 22.2 H (9.0-12.0) Seconds INR 2.2 H (0.9-1.1) Sodium (136-145) mmol/L Potassium (3.5-5.1) mmol/L Chloride (98-107) mmol/L Carbon Dioxide (21-32) mmol/L Anion Gap (3-11) BUN (7-18) mg/dl Creatinine (0.6-1.4) mg/dl Est Cr Clr Drug Dosing ml/min Est GFR ( Amer) Est GFR (Non-Af Amer) BUN/Creatinine Ratio (10-20) Glucose (70-99) mg/dl POC Glucose 81 71 (70-99) mg/dl Lactate (0.4-2.0) mmol/L Calcium (8.5-10.1) mg/dl Phosphorus (2.5-4.9) mg/dl Magnesium (1.8-2.4) mg/dl Total Bilirubin (0.2-1) mg/dl Direct Bilirubin (0-0.2) mg/dl GGT (3-70) U/L AST (15-37) U/L ALT (12-78) U/L Alkaline Phosphatase (45-117) U/L Total Protein (6.4-8.2) gm/dl Albumin (3.4-5.0) gm/dl Procalcitonin (0-0.5) ng/ml 12/20/19 Range/Units 17:32 WBC (4.8-10.8) K/uL RBC (4.7-6.1) M/uL Hgb (14.0-18.0) g/dL Hct (42-52) % MCV (80-100) fL MCH (25-34) pg MCHC (32-36) g/dL RDW Std Deviation (36.4-46.3) fL RDW Coeff of Aliyah (11.5-14.5) % Plt Count (130-400) K/uL MPV (7.4-10.4) fL Immature Gran % (Auto) % Neut % (Auto) % Lymph % (Auto) % [place] % (Auto) % Eos % (Auto) % Baso % (Auto) % Immature Gran # (Auto) (0.00-0.02) K/uL Neut # (Auto) (1.4-6.5) K/uL Lymph # (Auto) (1.2-3.4) K/uL [place] # (Auto) (0.11-0.59) K/uL Eos # (Auto) (0-0.5) K/uL Baso # (Auto) (0-0.2) K/uL PT (9.0-12.0) Seconds INR (0.9-1.1) Sodium (136-145) mmol/L Potassium (3.5-5.1) mmol/L Chloride (98-107) mmol/L Carbon Dioxide (21-32) mmol/L Anion Gap (3-11) BUN (7-18) mg/dl Creatinine (0.6-1.4) mg/dl Est Cr Clr Drug Dosing ml/min Est GFR ( Amer) Est GFR (Non-Af Amer) BUN/Creatinine Ratio (10-20) Glucose (70-99) mg/dl POC Glucose (70-99) mg/dl Lactate (0.4-2.0) mmol/L Calcium (8.5-10.1) mg/dl Phosphorus (2.5-4.9) mg/dl Magnesium (1.8-2.4) mg/dl Total Bilirubin (0.2-1) mg/dl Direct Bilirubin (0-0.2) mg/dl GGT 79 H (3-70) U/L AST (15-37) U/L ALT (12-78) U/L Alkaline Phosphatase (45-117) U/L Total Protein (6.4-8.2) gm/dl Albumin (3.4-5.0) gm/dl Procalcitonin (0-0.5) ng/ml PG Care Time/CCT Total # of Minutes Spent Total Time Spent with Patient: Total time spent is greater than 50% in coordination of care (as documented) at patient's floor/unit and/or counseling patient: Coding Level of Care Code 51396 Subseq Hosp Care Lvl 3 Diagnoses Shock R57.9 Acute respiratory failure with hypoxia J96.01 Sepsis A41.9 Pneumonia J18.9 Laterality: right Lung location: unspecified part of lung Pneumonia type: due to unspecified organism Acute on chronic systolic heart failure I50.23 Coagulopathy D68.9 Atrial fibrillation I48.91 ICD (implantable cardioverter-defibrillator) in place Z95.810 Chronic kidney disease, stage 3 (moderate) N18.3 Diabetes mellitus type 2 with complications E11.8 Hypertension I10 Severe protein-calorie malnutrition E43 Cold intolerance R68.89 Abnormal LFTs R94.5 Metabolic encephalopathy G93.41 CAD (coronary artery disease) I25.10 Leukocytosis D72.829 DVT prophylaxis Z29.9 (1) Pneumonia Laterality: right Lung location: unspecified part of lung Pneumonia type: due to unspecified organism Qualified Code(s): J18.9 - Pneumonia, unspecified organism
[2019-12-23] MEDS: CEFEPIME 2,000 MG in SYRINGE 7.5 ML IV SCH ×2 (00:01→14:05)
[2019-12-23] MEDS ORDERED: Nursing to Pharmacy Communication ONE (01:49)
[2019-12-23 06:46] LABS: Basophils # (auto) 0.01 K/uL (0-0.2); Basophils % (auto) 0.1 %; Eosinophils # (auto) 0.06 K/uL (0-0.5); Eosinophils % (auto) 0.4 %; Hematocrit (blood only) 43.7 % (42-52); Hemoglobin 14.1 g/dL (14.0-18.0); Immature Granulocytes # (auto) 0.11 K/uL (0.00-0.02); Immature Granulocytes % (auto) 0.7 %; Lymphocytes # (auto) 0.48 K/uL (1.2-3.4); Lymphocytes % (auto) 2.9 %; Mean Corpuscular Hemoglobin 29.9 pg (25-34); Mean Corpuscular Hgb Conc 32.3 g/dL (32-36); Mean Corpuscular Volume 92.8 fL (80-100); Mean Platelet Volume 11.4 fL (7.4-10.4); Monocytes # (auto) 0.33 K/uL (0.11-0.59); Neutrophils # (auto) 15.65 K/uL (1.4-6.5); Neutrophils % (auto) 93.9 %; Platelet Count 171 K/uL (130-400); RDW Coefficient of Variation 18.6 % (11.5-14.5); RDW Standard Deviation 62.8 fL (36.4-46.3); Red Blood Count 4.71 M/uL (4.7-6.1); White Blood Count 16.64 K/uL (4.8-10.8)
[2019-12-23 06:56] LABS: INR 2.1 (0.9-1.1); Prothrombin Time 21.1 Seconds (9.0-12.0)
[2019-12-23 07:37] LABS: Albumin Level 1.9 gm/dl (3.4-5.0); BUN Creatinine Ratio 47.9 (10-20); Bilirubin,Total 4.8 mg/dl (0.2-1); Calcium 8.9 mg/dl (8.5-10.1); Creatinine Clr Calc Pharmacy 40.6 ml/min; Est GFR (African American) 47.8; Est GFR (Non-African American) 41.2; Potassium 2.9 mmol/L (3.5-5.1); Total Protein 6.1 gm/dl (6.4-8.2)
--- NOTE | 2019-12-23 08:02 | XRay Report ---
XR chest 1V portable CLINICAL HISTORY: increasing o2 req, CHF, EF<20% COMPARISON STUDY: Chest CT December 20, 2019. Chest radiograph December 22, 2019. FINDINGS: A right subclavian biventricular pacer/AICD is in place. Extensive right lung airspace opac ity persists. Left basilar opacity persists. Interstitial thickening is unchanged. There are small bi lateral pleural effusions. There is no pneumothorax. The cardiomediastinal silhouette is stable. IMPRESSION: 1.. No change in appearance of the chest with dense right lung airspace opacity and left basilar opac ity with interstitial thickening. The findings favor pneumonia with possible superimposed pulmonary e ashkan. 2. Small bilateral pleural effusions. ACT 112: Negative or not required by law. Electronically signed by: Frankie Cherry M.D. 12/23/2019 8:00 AM
[2019-12-23] MEDS ORDERED: SODIUM CHLORIDE 0.9% 1000ML 250 ML IV ONE (08:19)
[2019-12-23] MEDS: DEXTROSE 5% 1,000 ML IV SCH (08:42)
[2019-12-23] MEDS: FLUOCINONIDE 0.05% OINT 15 GM TUBE EXT SCH ×2 (08:45→22:46)
[2019-12-23] MEDS: CHOLECALCIFEROL 1,000 UNITS 25 MCG TAB PO SCH (08:46)
[2019-12-23] MEDS: HEPARIN SOD 5,000 UNIT/0.5 ML VIAL SQ SCH ×2 (08:46→22:07)
[2019-12-23] MEDS: FAMOTIDINE 20 MG TAB PO SCH (08:46)
[2019-12-23] MEDS: ASPIRIN 81 MG ECTAB PO SCH (08:47)
[2019-12-23] MEDS: MIDODRINE HCL 2.5 MG TAB PO SCH ×3 (09:03→17:15)
[2019-12-23] MEDS ORDERED: POTASSIUM CHLORIDE / WTR 20 MEQ/100 ML PLCT IV SCH (10:30)
[2019-12-23] MEDS: POTASSIUM CHLORIDE / WTR 10 MEQ/100 ML PLCT IV SCH ×3 (11:09→14:05)
--- NOTE | 2019-12-23 12:10 | Palliative Care Consultation ---
Date of Consultation December 23, 2019 Assessment & Plan (1) Goals of care, counseling/discussion: -74 year old male patient with PMH long-standing heart failure with EF 20- 25% since 1997, home Trilogy machine with questionable compliance, COPD, DM type 2, PAF, CKD, dyslipidemia, htn, left BBB, paroxysmal atrial fibrillation, s/p biventricular ICD placement, and others, presented to the hospital two days ago with septic and cardiogenic shock. CT chest showed infiltrate and pleural effusion on the right. Patient was hypotensive and hypoxic in the ED. His pressure responded to IVF but he did require pressors in the ICU. Patient was started on multiple abx including Flagyl during this admission. CT abd was unremarkable, so Flagyl and vanco discontinued. Patient is overall improving-- blood pressures are acceptable since pressors were discontinued, lactic acid improved from 3.1 to 1.6, creatinine improved from 2.11 to 1.8. Patient has known heart failure with extremely low EF-- he follows with the heart failure clinic as an outpatient. Patient was admitted to the hospital in July 2019 and again in October 2019, both times with heart failure exacerbations. Palliative care met with patient on August 29, to discuss goals of care. At the time, elizabet's kidneys were doing quite poorly, patient had a long complicated hospitalization. Patient at the time stated that his quality of life was still very good even with his chronic illnesses. He wished to continue coming to the hospital when needed, but did state that he would not want heroic measures to sustain his life and did not want dialysis if his kidneys continued to fail. Last night, patient desaturate and was placed back on high-flow nasal cannula. CXR unchanged, still with pneumonia. Bilirubin is more elevated today, possibly from congestion due to CHF. Palliative care is consulted again to discuss goals of care with patient. -Patient seen by palliative MD this afternoon. He is on high-flow nasal cannula. Remains somnolent and SOB. Blood pressure is soft, midodrine started today. Patient told palliative MD again that he is DNR/DNI, but full conversation difficult due to lethargy. -Called patient's , Mounika, and spoke at length. I made her aware that I have spoke with patient previously about his goals of care. He told me in the psat that he did not want CPR, intubation, Bipap or dialysis. His goal was to be home with his as long as he still had a good quality of life. Mounika agrees that patient does not want heroic measures. -Gave Mounika update on her 's condition. She is very understanding and reasonable. She states that if patient is worsening/not improving in next 24-48 hours, she would prefer to transition to comfort measures. She does not want patient to suffer and they have discussed these things in the past. Mounika would prefer to get patient home with hospice if he is at the end of life, but of course this will depend on his clinical course. -For now, continue current treatment. Again, Mounika prefers to escalation in care if patient's condition worsens, but she would like to be called with any change. -We will continue to follow and provide support. (2) Acute systolic heart failure: (3) Acute hypoxemic respiratory failure: (4) Shock: Supervising Physician Co-Signing Physician Notes Chart reviewed, patient seen and examined. Collaborated with attending physician Dr. Guido as well as SAIMA Underwood Patient was transferred out of the ICU on the evening of 12/21-patient seen in room 285. Patient arousable, quite lethargic, appears short of breath at rest. Events of this a.m. noted-patient sats were 83% on 9 L of O2-patient was placed back on high flow nasal cannula with sats at 90%. Patient received gentle IV hydration, was started on Middaugh drain due to hypotension. Patient able to respond to simple questions, unable to participate in any in- depth conversation due to lethargy and fatigue. Patient may also have some confusion as his bilirubin is 4.8. PE: Patient arousable, states he feels better today than yesterday HEENT: EOMI, hearing within normal limits Respiratory: Increased respiratory rate, on high flow nasal cannula at 50 L/min, patient with coarse breath sounds on left and minimal, coarse breath sounds and rhonchi on the right CV: Regular rate Abdomen: Soft, nontender Neuro: Patient arousable, oriented, able to answer simple questions Agree with above note, assessment and plan as per SAIMA Underwood-we will continue to follow and assist patient and family with medical decision making History of Present Illness Attending Physician: Laly Guido MD History of Present Illness This 74 year old male patient with PMH long-standing heart failure with EF 20- 25% since 1997, home Trilogy machine with questionable compliance, COPD, DM type 2, PAF, CKD, dyslipidemia, htn, left BBB, paroxysmal atrial fibrillation, s/p biventricular ICD placement, and others, presented to the hospital two days ago with septic and cardiogenic shock. CT chest showed infiltrate and pleural effusion on the right. Patient was hypotensive and hypoxic in the ED. His pressure responded to IVF but he did require pressors in the ICU. Patient was started on multiple abx including Flagyl during this admission. CT abd was unremarkable, so Flagyl and vanco discontinued. Patient is overall improving-- blood pressures are acceptable since pressors were discontinued, lactic acid improved from 3.1 to 1.6, creatinine improved from 2.11 to 1.8. Patient has known heart failure with extremely low EF-- he follows with the heart failure clinic as an outpatient. Patient was admitted to the hospital in July 2019 and again in October 2019, both times with heart failure exacerbations. Palliative care met with patient on August 29, to discuss goals of care. At the time, elizabet's kidneys were doing quite poorly, patient had a long complicated hospitalization. Patient at the time stated that his quality of life was still very good even with his chronic illnesses. He wished to continue coming to the hospital when needed, but did state that he would not want heroic measures to sustain his life and did not want dialysis if his kidneys continued to fail. Last night, patient desaturate and was placed back on high-flow nasal cannula. CXR unchanged, still with pneumonia. Bilirubin is more elevated today, possibly from congestion due to CHF. Palliative care is consulted again to discuss goals of care with patient. Thank you kindly for this consult. Palliative care team will follow as needed. Allergies Allergy/AdvReac Type Severity Reaction Status Date / Time Pcuhwxw-Abf-Mvo Reductase Allergy Intermediate myalgia Verified 12/20/19 10:18 Inhibitor bee venom protein (honey bee) Allergy Unknown yellow Verified 12/20/19 10:18 jacket Penicillins Allergy Unknown Unknown Verified 12/20/19 10:18 levofloxacin AdvReac Intermediate nightmares Verified 12/20/19 10:18 Home Medications Home Medications Medication Instructions Recorded Confirmed Type metoprolol succinate 25 mg 25 mg PO DAILY #90 tab 03/17/19 12/20/19 Rx tablet,extended release 24 hr aspirin [Aspir-81] 81 mg PO DAILY 06/11/19 12/20/19 History cholecalciferol (vitamin D3) 125 5,000 units PO DAILY cap 08/09/19 12/20/19 History mcg (5,000 unit) capsule loperamide [Imodium A-D] 2 mg PO DIRECTED PRN 08/20/19 12/20/19 History metolazone 2.5 mg tablet 2.5 mg PO DAILY PRN tab 09/28/19 12/20/19 History potassium chloride 20 mEq 20 meq PO DAILY #90 tab 10/07/19 12/20/19 Rx tablet,extended release fluocinonide 0.05 % topical 1 appln TOP BID #60 gm 10/18/19 12/20/19 Rx ointment glipizide 5 mg tablet 5 mg PO DAILY 10/27/19 12/20/19 History nitroglycerin 400 mcg/spray 1 sprays SL .COMPLEX PRN #4.9 gm 10/28/19 12/20/19 Rx translingual sacubitril 24 mg-valsartan 26 mg 0.5 tab PO BID #180 tab 11/10/19 12/20/19 Rx tablet furosemide 40 mg tablet 40 mg PO BID #180 tab 12/06/19 12/20/19 Rx Patient History Medical History (Updated 12/20/19 @ 17:18 by Anjel Camejo MD) Abnormal CT of the chest Acute hypoxemic respiratory failure Acute systolic heart failure Anemia Arteriosclerotic cardiovascular disease (Acute) Aspiration pneumonia Atrial fibrillation (Chronic) CAD (coronary artery disease) Central hypothyroidism Chronic kidney disease, stage 3 (moderate) (Chronic) Chronic systolic congestive heart failure (Acute) 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) Dyslipidemia (Acute) Gout (Acute) History of pacemaker Hypertension (Acute) ICD (implantable cardioverter-defibrillator) in place (Acute 09/02/11) Ischemic cardiomyopathy (Acute) Left bundle branch block (LBBB) (Acute) Multinodular goiter (Acute) Old myocardial infarction (Acute) Paroxysmal ventricular tachycardia (Acute) S/P admission to ICU (intensive care unit) Solitary thyroid nodule (Acute) Sulfonylurea poisoning (Inactive ~08/22/19) Vitamin D deficiency (Acute) Surgical History H/O hand surgery L index finger History of ankle surgery S/P foot surgery S/P knee surgery L patella fx repair Family History Father , age 58 Myocardial infarction Family/Other Heart disease Hypertension Dyslipidemia Mother , of "old age" - 98 No problems noted. 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 [employer] Feels Safe at Home: Yes Safety Concerns: Feels Safe At This Time Smoking Status: Former smoker Tobacco Type: cigarettes ; Age Started Using Tobacco: 13 ; packs per day: 1 ; Do You Dip or Chew Tobacco: No ; Smoking End Date: 1999 ; Second Hand Exposure: No ; Tobacco Cessation Education Requested by Patient: No Hx Alcohol Use: Yes Alcohol type: wine Alcohol type Comment: stopped drinking, however, several months ago Hx Substance Use: No Childhood Exposure to Second-Hand Smoke: Yes caffeine: No during the past year weight has: remained stable Dental Care, Regularly: Yes Physical Activity Frequency: Does not Exercise Seatbelt Use: always Sunscreen Use: Yes Results & Data Vital Signs (Past 12 Hours) Vital Signs Temp Pulse Pulse Pulse Resp BP Pulse Ox 12/23/19 10:46 36.3 C L 90 20 95/66 L 90 12/23/19 09:06 92/61 L 12/23/19 09:00 80 18 94 12/23/19 08:00 90 24 91 12/23/19 07:10 36.4 C L 98 H 20 81/57 L 83 L 12/23/19 03:00 36.4 C L 80 22 107/73 94 12/23/19 01:29 73 Coding Level of Care Code 99365 Inpt Consult Level 3 Diagnoses Goals of care, counseling/discussion Z71.89 Acute systolic heart failure I50.21 Acute hypoxemic respiratory failure J96.01 Shock R57.9 Time Spent (min) 70 Time Spent Midlevel A total of 70 minutes spent by this SEISMOGRAPH RECORDER in reviewing chart, speaking with attending and palliative MDs, talking with case management, and discussing with patient's on phone regarding patient condition and goals of care. Attending Spent 30 minutes in addition to the 70 minutes spent by SAIMA Underwood for a total of 100 minutes with greater than 50% of the time spent at bedside and on the phone collaborating with patients .
--- NOTE | 2019-12-23 12:43 | Hospitalist Progress Note ---
Date of Service December 23, 2019 Assessment & Plan (1) Shock: Suspect combination of septic and cardiogenic. Was improving, and previously off Levophed Now hypotensive and hypoxic again--> give NS 250mL bolus -start midodrine 2.5mg po tid Last echo - 05/2019 - EF 20-25%. Cardiomyopathy is 2nd to ischemia - large area of akinesis on that echo (had CA 1997 per records). Caution with excess fluids given his severe CHF. -Continue to hold home antihypertensives (2) Acute respiratory failure with hypoxia: Suspect combination of pneumonia with acute/chronic CHF. Right lung with considerable infiltrate thought to be secondary to aspiration pneumonia COVID-19 negative Appreciate pulmonary/critical care management Was weaned off high flow nasal cannula to 5 L nasal cannula and transferred out of ICU, however worsening today--> place back on HFNC as he tolerates this better -Continue cefepime but doxycycline and vancomycin have since been discontinued Patient does not want to be intubated or use BiPAP -continue n.p.o. as recommended by speech due to tachypnea and decreased mental status -continue D5W low rate for NPO status (3) Sepsis: Secondary to pneumonia -Follow cultures-no growth to date (4) Pneumonia: Likely aspiration pneumonia as above, CT chest with large infiltrate throughout the right side With bilateral pleural effusions Procalcitonin remains elevated but trended downward to 2.19 -Antibiotics as above -Follow chest x-ray (5) Acute on chronic systolic heart failure: Severe CHF - EF 20-25%. With hypotension requiring small boluses of fluid, however with pleural effusions -Continue to hold diuretics, entresto and BB due to shock. -Now off Levophed but starting midodrine as above -Follow daily weights, I's and O's -We will attempt to add diuretic back on and beta-beatriz if possible in the future (6) Coagulopathy: INR remains elevated likely secondary to hepatic congestion from shock given elevated bilirubin He is not on warfarin. Could also have vitamin K deficiency Consider vitamin K supplementation . Platelets are normal making DIC unlikely. Serial INRs. (7) Atrial fibrillation: h/o xarelto use but stopped about 10 days prior to admission due to excessive bleeding. excessive bleeding likely from coagulopathy in the setting of that xarelto use. (8) ICD (implantable cardioverter-defibrillator) in place: noted, biventricular recent interrogation done as outpatient by cardiology Pacing on telemetry here (9) Chronic kidney disease, stage 3 (moderate): baseline Cr about 1.5 to 1.7 Creatinine greater than 2 on admission and is now continuing to improve down to 1.6, mild acidosis with bicarbonate of 20 now improved to 22 after giving a couple of small boluses of normal saline etiology of acute kidney injury - cardiorenal vs sepsis-associated or combination supportive care bmp am (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: a1c 5.6% in Oct 2019 with his weight loss his T2DM has essentially resolved follow BSGs (11) Hypertension: now with shock/hypotension Continue to HOLD home meds (12) Severe protein-calorie malnutrition: 30-40 pounds of weight loss since 2018 occult malignancy possible versus end-stage heart failure address in the future as outpatient if desired by patient -Is currently n.p.o. due to aspiration risk and tachypnea (13) Cold intolerance: TSH wnl, free T4 normal (14) Abnormal LFTs: Total bilirubin up again today to 4.8 with elevated direct bilirubin, other LFTs normal Direct bilirubin is elevated at 4.0 Looks like biliary stasis -likely secondary to congestion from CHF -CT abdomen/pelvis with fatty liver Follow LFTs (15) Metabolic encephalopathy: Secondary to presumed sepsis, shock, etc. Continues today TSH and T4 normal (16) CAD (coronary artery disease): h/o acute CA 1997 no recent ischemic symptoms troponin is wnl continue aspirin (17) Leukocytosis: chronic, baseline around 10-12, seen by Heme in past and thought to be reactive -now up due to acute infection -was trending downward but now back up to 16--> question if aspirated with ice chips or po meds? -follow CBC (18) DVT prophylaxis: SQ heparin Dispo-continued stay on med-tele with very guarded prognosis--> will pursue FISH HEADER if further declines as per wishes of as pt not mentating however he previously did not want aggressive measures Palliative Care consult appreciated DNR/DNI Admission and Anticipated Discharge Date Admission Date: December 20, 2019 Subjective Pt had desatted this AM/overnight requiring 8L Oxymask and hypotensive. I gave him a small bolus of NS and started him on HFNC with some improvement. He is lethargic but does wake up and says he feels like he can't breath, like there's a "loogie" caught in his chest he can't get up. He has been coughing up thick green yellow sputum. Denies chest pain. Would like to drink but Speech saw him later in day and deemed not safe to swallow. Discussed his care with Palliative Care and with his on phone. is understanding and would like him to be kept comfortable if he continues to decline. Discussed his case with Transfer Station Attendant taking care of him previously who suggested midodrine. Tele with paced rhythm, rates 70-80 Review of Systems Review of Systems: All systems reviewed & are unremarkable except as noted in HPI & below Physical Exam Constitutional: + ill appearing and average body habitus Eyes: EOM intact bilaterally ENMT: Ears: + hearing impairment HNC in place Neck: trachea midline, no thyromegaly Respiratory: + labored breathing and + tachypneic Auscultation: + diminished lung sounds (On right) and + crackles (Throughout the right side); no wheezes Cardiovascular: Rate/Rhythm: regular rate and regular rhythm Heart Sounds: no murmur Extremities: + edema (Trace pitting edema legs right greater than left) Chest (Breasts): Chest: normal inspection of chest Gastrointestinal (Abdomen): normal bowel sounds, soft, nontender, no hepatosp lenomegaly Musculoskeletal: Extremities: extremities normal to inspection Skin: no rashes, warm and dry Neurologic: moves all extremities, awake and + confused (Mildly confused); no focal motor deficits Lymphatic: no lymphedema Results & Data Results & Data ([facility]) Vital Signs (Past 12 Hours) Vital Signs Temp Pulse Pulse Pulse Resp BP Pulse Ox 12/23/19 12:10 76 20 98 12/23/19 10:46 36.3 C L 90 20 95/66 L 90 12/23/19 09:06 92/61 L 12/23/19 09:00 80 18 94 12/23/19 08:00 90 24 91 12/23/19 07:10 36.4 C L 98 H 20 81/57 L 83 L 12/23/19 03:00 36.4 C L 80 22 107/73 94 12/23/19 01:29 73 Laboratory Results labs reviewed PG Care Time/CCT Total # of Minutes Spent Total Time Spent with Patient: Total time spent is greater than 50% in coordination of care (as documented) at patient's floor/unit and/or counseling patient: Coding Level of Care Code 80620 Subseq Hosp Care Lvl 3 Diagnoses Shock R57.9 Acute respiratory failure with hypoxia J96.01 Sepsis A41.9 Pneumonia J18.9 Laterality: right Lung location: unspecified part of lung Pneumonia type: due to unspecified organism Acute on chronic systolic heart failure I50.23 Coagulopathy D68.9 Atrial fibrillation I48.91 ICD (implantable cardioverter-defibrillator) in place Z95.810 Chronic kidney disease, stage 3 (moderate) N18.3 Diabetes mellitus type 2 with complications E11.8 Hypertension I10 Severe protein-calorie malnutrition E43 Cold intolerance R68.89 Abnormal LFTs R94.5 Metabolic encephalopathy G93.41 CAD (coronary artery disease) I25.10 Leukocytosis D72.829 DVT prophylaxis Z29.9 (1) Pneumonia Laterality: right Lung location: unspecified part of lung Pneumonia type: due to unspecified organism Qualified Code(s): J18.9 - Pneumonia, unspecified organism
[2019-12-24] MEDS: CEFEPIME 2,000 MG in SYRINGE 7.5 ML IV SCH ×2 (01:24→12:00)
[2019-12-24 06:06] LABS: Basophils # (auto) 0.01 K/uL (0-0.2); Basophils % (auto) 0.1 %; Eosinophils # (auto) 0.12 K/uL (0-0.5); Eosinophils % (auto) 0.8 %; Hematocrit (blood only) 41.1 % (42-52); Hemoglobin 13.2 g/dL (14.0-18.0); Immature Granulocytes # (auto) 0.12 K/uL (0.00-0.02); Immature Granulocytes % (auto) 0.8 %; Lymphocytes # (auto) 0.52 K/uL (1.2-3.4); Lymphocytes % (auto) 3.5 %; Mean Corpuscular Hemoglobin 29.1 pg (25-34); Mean Corpuscular Hgb Conc 32.1 g/dL (32-36); Mean Corpuscular Volume 90.7 fL (80-100); Mean Platelet Volume 11.5 fL (7.4-10.4); Monocytes # (auto) 0.31 K/uL (0.11-0.59); Monocytes % (auto) 2.1 %; Neutrophils # (auto) 13.59 K/uL (1.4-6.5); Neutrophils % (auto) 92.7 %; Platelet Count 171 K/uL (130-400); RDW Coefficient of Variation 18.5 % (11.5-14.5); RDW Standard Deviation 61.3 fL (36.4-46.3); Red Blood Count 4.53 M/uL (4.7-6.1); White Blood Count 14.67 K/uL (4.8-10.8)
[2019-12-24 06:50] LABS: Albumin Level 1.7 gm/dl (3.4-5.0); BUN Creatinine Ratio 52.1 (10-20); Bilirubin Direct 3.8 mg/dl (0-0.2); Calcium 8.4 mg/dl (8.5-10.1); Creatinine Clr Calc Pharmacy 45.7 ml/min; Est GFR (African American) 55.2; Est GFR (Non-African American) 47.6; Magnesium 2.5 mg/dl (1.8-2.4)
[2019-12-24 06:53] LABS: Total Protein 5.8 gm/dl (6.4-8.2)
[2019-12-24] MEDS: FLUOCINONIDE 0.05% OINT 15 GM TUBE EXT SCH ×2 (07:59→21:35)
[2019-12-24] MEDS: HEPARIN SOD 5,000 UNIT/0.5 ML VIAL SQ SCH ×2 (07:59→20:46)
[2019-12-24] MEDS: POTASSIUM CHLORIDE / WTR 10 MEQ/100 ML PLCT IV SCH ×6 (07:59→13:11)
[2019-12-24] MEDS: DEXTROSE 5% 1,000 ML IV SCH (08:50)
--- NOTE | 2019-12-24 10:46 | Hospitalist Progress Note ---
Date of Service December 24, 2019 Assessment & Plan (1) Shock: Suspect combination of septic and cardiogenic. Was on Levophed in ICU for 1-2 days, then taken off pressors, moved to tele -continued to be hypotensive, hypoxic, lethargic, encephalopathic was given several small boluses of NS -started midodrine 2.5mg po tid but then refused further meds Last echo - 05/2019 - EF 20-25%. 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 -Continue to hold home antihypertensives Now converting to LOTTERY MANAGER as per pt and family wishes (2) Acute respiratory failure with hypoxia: Suspect combination of pneumonia with acute/chronic CHF. Right lung with considerable infiltrate thought to be secondary to aspiration pneumonia COVID-19 negative Appreciate pulmonary/critical care management Was weaned off high flow nasal cannula to 5 L nasal cannula briefly and transferred out of ICU, however worsened and was back on HFNC the last 36 hours Attempted to convert to OxyMask today at 8L and then pt refusing any further O2 therapy -will discuss with family about discontinuing abx, IVFs -focus on comfort--> added on IV morphine and IV ativan for breathlessness and agitation Patient does not want to be intubated or use BiPAP (3) Sepsis: Secondary to pneumonia -Follow cultures-no growth to date (4) Pneumonia: Likely aspiration pneumonia as above, CT chest with large infiltrate throughout the right side With bilateral pleural effusions Procalcitonin remains elevated but trended downward to 2.19 -Antibiotics as above will likely dc due to transition to LOTTERY MANAGER Speech cleared him to try eating today but he refused, was too lethargic (5) Acute on chronic systolic heart failure: Severe CHF - EF 20-25%. With hypotension requiring small boluses of fluid, however with pleural effusions -Continue to hold diuretics, entresto and BB due to shock. -Now off Levophed but started midodrine as above--> refusing pills and transitioning to LOTTERY MANAGER (6) Coagulopathy: INR remains elevated likely secondary to hepatic congestion from shock gi oswaldo elevated bilirubin He is not on warfarin. Could also have vitamin K deficiency Platelets are normal making DIC unlikely. (7) Atrial fibrillation: h/o xarelto use but stopped about 10 days prior to admission due to excessive bleeding. excessive bleeding likely from coagulopathy in the setting of that xarelto use. 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: a1c 5.6% in Oct 2019 with his weight loss his T2DM has essentially resolved will dc BSGs (11) Hypertension: now with shock/hypotension Continue to HOLD home meds (12) Severe protein-calorie malnutrition: 30-40 pounds of weight loss since 2018 occult malignancy possible versus end-stage heart failure (13) Cold intolerance: TSH wnl, free T4 normal (14) Abnormal LFTs: Total bilirubin up again today to 5.0 with elevated direct bilirubin, other LFTs normal Direct bilirubin is elevated at 3.8, INR elevated Looks like biliary stasis -likely secondary to congestion from CHF -CT abdomen/pelvis with fatty liver no further labs (15) Metabolic encephalopathy: Secondary to presumed sepsis, shock, etc. Worsening today with hypoxia TSH and T4 normal (16) CAD (coronary artery disease): h/o acute [place] 1997 no recent ischemic symptoms troponin is wnl hold aspirin for lethargy (17) Leukocytosis: chronic, baseline around 10-12, seen by Maggi in past and thought to be reactive -now up due to acute infection -slightly lower today at 14 no further labs (18) Hypokalemia: continues -replaced with IV KCl but will not check further labs (19) DVT prophylaxis: SQ heparin-will dc if transition to LOTTERY MANAGER Dispo-continued stay with very poor prognosis--> likely transition to LOTTERY MANAGER today Palliative Care consult appreciated DNR/DNI Admission and Anticipated Discharge Date Admission Date: December 20, 2019 Subjective Pt is not doing well today. He is lethargic, slow to respond to questions. When asked if he has SOB, he holds his hand up to his chest but does not answer me. Around mid-day he took his O2 off and RN reported to me she could not get him to put it back on. I came to the bedside and he was awake but not answering any questions, staring up at the ceiling, restless. He continued to refuse and was making statements to let him . I called his twice today-the first time, she asked about trying to get him home with hospice in the next 24 hours, but if could not wean down to O2 6L, I advised he would have to go on LOTTERY MANAGER in the hospital and family could come to visit. I then called her again to come in to see him after he refused to put his O2 back on with sats in the 70s. Morphine IV was given and he was then agreeable to leaving O2 on until his family came in. Tele with paced rhythm Review of Systems Review of Systems: All systems reviewed & are unremarkable except as noted in HPI & below Physical Exam Constitutional: + ill appearing, average body habitus and + lethargic Neck: trachea midline, no thyromegaly Respiratory: + labored breathing and + tachypneic (mild) Auscultation: + diminished lung sounds (On right) and + crackles (Throughout the right side); no wheezes Cardiovascular: Rate/Rhythm: regular rate and regular rhythm Heart Sounds: no murmur Extremities: + edema (Trace pitting edema legs right greater than left) Chest (Breasts): Chest: normal inspection of chest Gastrointestinal (Abdomen): normal bowel sounds, soft, nontender, no he patosplenomegaly Musculoskeletal: Extremities: extremities normal to inspection Skin: no rashes, warm and dry Lymphatic: no lymphedema Results & Data Results & Data ([facility]) Vital Signs (Past 12 Hours) Vital Signs Temp Pulse Resp BP Pulse Ox 12/24/19 09:50 89/47 L 12/24/19 07:11 36.7 C 76 20 87/57 L 96 12/24/19 07:10 70 20 96 12/24/19 04:00 36.5 C 87 20 100/61 94 12/23/19 23:07 36.4 C L 88 18 91/52 L 92 Laboratory Results 12/24/19 12/24/19 12/24/19 Range/Units 11:22 06:10 05:25 WBC (4.8-10.8) K/uL RBC (4.7-6.1) M/uL Hgb (14.0-18.0) g/dL Hct (42-52) % MCV (80-100) fL MCH (25-34) pg MCHC (32-36) g/dL RDW Std Deviation (36.4-46.3) fL RDW Coeff of Aliyah (11.5-14.5) % Plt Count (130-400) K/uL MPV (7.4-10.4) fL Immature Gran % (Auto) % Neut % (Auto) % Lymph % (Auto) % [place] % (Auto) % Eos % (Auto) % Baso % (Auto) % Immature Gran # (Auto) (0.00-0.02) K/uL Neut # (Auto) (1.4-6.5) K/uL Lymph # (Auto) (1.2-3.4) K/uL [place] # (Auto) (0.11-0.59) K/uL Eos # (Auto) (0-0.5) K/uL Baso # (Auto) (0-0.2) K/uL Sodium 137 (136-145) mmol/L Potassium 3.0 L (3.5-5.1) mmol/L Chloride 108 H (98-107) mmol/L Carbon Dioxide 23 (21-32) mmol/L Anion Gap 7.0 (3-11) BUN 74 H (7-18) mg/dl Creatinine 1.42 H (0.6-1.4) mg/dl Est Cr Clr Drug Dosing 45.7 ml/min Est GFR ( Amer) 55.2 Est GFR (Non-Af Amer) 47.6 BUN/Creatinine Ratio 52.1 H (10-20) Glucose 92 (70-99) mg/dl POC Glucose 97 94 (70-99) mg/dl Calcium 8.4 L (8.5-10.1) mg/dl Magnesium 2.5 H (1.8-2.4) mg/dl Total Bilirubin 5.0 H (0.2-1) mg/dl Direct Bilirubin 3.8 H (0-0.2) mg/dl AST 27 (15-37) U/L ALT 19 (12-78) U/L Alkaline Phosphatase 86 (45-117) U/L Total Protein 5.8 L (6.4-8.2) gm/dl Albumin 1.7 L (3.4-5.0) gm/dl 12/24/19 12/23/19 12/23/19 Range/Units 05:25 23:56 18:13 WBC 14.67 H (4.8-10.8) K/uL RBC 4.53 L (4.7-6.1) M/uL Hgb 13.2 L (14.0-18.0) g/dL Hct 41.1 L (42-52) % MCV 90.7 (80-100) fL MCH 29.1 (25-34) pg MCHC 32.1 (32-36) g/dL RDW Std Deviation 61.3 H (36.4-46.3) fL RDW Coeff of Aliyah 18.5 H (11.5-14.5) % Plt Count 171 (130-400) K/uL MPV 11.5 H (7.4-10.4) fL Immature Gran % (Auto) 0.8 % Neut % (Auto) 92.7 % Lymph % (Auto) 3.5 % [place] % (Auto) 2.1 % Eos % (Auto) 0.8 % Baso % (Auto) 0.1 % Immature Gran # (Auto) 0.12 H (0.00-0.02) K/uL Neut # (Auto) 13.59 H (1.4-6.5) K/uL Lymph # (Auto) 0.52 L (1.2-3.4) K/uL [place] # (Auto) 0.31 (0.11-0.59) K/uL Eos # (Auto) 0.12 (0-0.5) K/uL Baso # (Auto) 0.01 (0-0.2) K/uL Sodium (136-145) mmol/L Potassium (3.5-5.1) mmol/L Chloride (98-107) mmol/L Carbon Dioxide (21-32) mmol/L Anion Gap (3-11) BUN (7-18) mg/dl Creatinine (0.6-1.4) mg/dl Est Cr Clr Drug Dosing ml/min Est GFR ( Amer) Est GFR (Non-Af Amer) BUN/Creatinine Ratio (10-20) Glucose (70-99) mg/dl POC Glucose 92 98 (70-99) mg/dl Calcium (8.5-10.1) mg/dl Magnesium (1.8-2.4) mg/dl Total Bilirubin (0.2-1) mg/dl Direct Bilirubin (0-0.2) mg/dl AST (15-37) U/L ALT (12-78) U/L Alkaline Phosphatase (45-117) U/L Total Protein (6.4-8.2) gm/dl Albumin (3.4-5.0) gm/dl PG Care Time/CCT Total # of Minutes Spent Total Time Spent with Patient: Total time spent is greater than 50% in coordination of care (as documented) at patient's floor/unit and/or counseling p atient: Coding Level of Care Code 93249 Subseq Hosp Care Lvl 3 Diagnoses Shock R57.9 Acute respiratory failure with hypoxia J96.01 Sepsis A41.9 Pneumonia J18.9 Laterality: right Lung location: unspecified part of lung Pneumonia type: due to unspecified organism Acute on chronic systolic heart failure I50.23 Coagulopathy D68.9 Atrial fibrillation I48.91 ICD (implantable cardioverter-defibrillator) in place Z95.810 Chronic kidney disease, stage 3 (moderate) N18.3 Diabetes mellitus type 2 with complications E11.8 Hypertension I10 Severe protein-calorie malnutrition E43 Cold intolerance R68.89 Abnormal LFTs R94.5 Metabolic encephalopathy G93.41 CAD (coronary artery disease) I25.10 Leukocytosis D72.829 Hypokalemia E87.6 DVT prophylaxis Z29.9 (1) Pneumonia Laterality: right Lung location: unspecified part of lung Pneumonia type: due to unspecified organism Qualified Code(s): J18.9 - Pneumonia, unspecified organism
[2019-12-24] MEDS ORDERED: MoRPHine SULFATE 2 MG/ML CARP IV STA (13:44)
[2019-12-24] MEDS ORDERED: MoRPHine SULFATE 2 MG/ML CARP ONE (13:49)
[2019-12-24] MEDS: MoRPHine SULFATE 2 MG/ML CARP IV PRN ×3 (14:52→21:55)
[2019-12-24 15:40] VITALS: O2SAT 89
[2019-12-24] MEDS: LORazepam 0.5 MG/1 ML VIAL IV PRN ×2 (16:02→20:45)
[2019-12-24] MEDS: MIDODRINE HCL 2.5 MG TAB PO SCH (17:35)
--- NOTE | 2019-12-24 20:49 | Communication Note ---
Date of Service: December 24, 2019 Called to bedside for respiratory secretions. Lungs continue to be coarse. Discussed with family, although he not 'comfort care' order set the family would like to keep him comfortable at this time and anticipates return home tomorrow for Hospice. Discussed with family and nurse present that atropine/scop patches can be used for end of life secretions, but which have several side potential side effects including confusion and heart rhythm disturbance which while are used at end of life to help treat discomfort and secretions can potentially hasten . Family acknowledges this, and wishes to keep and comfortable and while their goal is to have him return home on hospice to pass understand and would be OK if he passed while in the hospital. Discussed w/ nursing, atropine drops ordered Q6H PRN
[2019-12-24] MEDS: ATROPINE SULFATE 1% OP SOLN 2 ML BTL PO SCH (21:34)
[2019-12-25] MEDS: CEFEPIME 2,000 MG in SYRINGE 7.5 ML IV SCH ×2 (00:56→12:09)
[2019-12-25] MEDS: ATROPINE SULFATE 1% OP SOLN 2 ML BTL PO SCH ×3 (00:56→12:12)
[2019-12-25] MEDS: LORazepam 0.5 MG/1 ML VIAL IV PRN (01:13)
[2019-12-25 08:09] VITALS: BP 72/52; PULSE 88; TEMP 97.5
[2019-12-25 08:14] LABS: Basophils # (auto) 0.01 K/uL (0-0.2); Basophils % (auto) 0.1 %; Eosinophils # (auto) 0.04 K/uL (0-0.5); Eosinophils % (auto) 0.2 %; Hematocrit (blood only) 40.1 % (42-52); Hemoglobin 13.1 g/dL (14.0-18.0); Immature Granulocytes # (auto) 0.16 K/uL (0.00-0.02); Lymphocytes # (auto) 0.32 K/uL (1.2-3.4); Mean Corpuscular Hemoglobin 29.8 pg (25-34); Mean Corpuscular Hgb Conc 32.7 g/dL (32-36); Mean Corpuscular Volume 91.3 fL (80-100); Mean Platelet Volume 11.3 fL (7.4-10.4); Neutrophils # (auto) 15.38 K/uL (1.4-6.5); Neutrophils % (auto) 93.7 %; Platelet Count 177 K/uL (130-400); RDW Coefficient of Variation 18.4 % (11.5-14.5); RDW Standard Deviation 61.6 fL (36.4-46.3); Red Blood Count 4.39 M/uL (4.7-6.1); White Blood Count 16.41 K/uL (4.8-10.8)
[2019-12-25] MEDS: DEXTROSE 5% 1,000 ML IV SCH (08:37)
[2019-12-25] MEDS: MIDODRINE HCL 2.5 MG TAB PO SCH ×2 (08:37→12:09)
[2019-12-25] MEDS: ASPIRIN 81 MG ECTAB PO SCH (08:37)
[2019-12-25] MEDS: MoRPHine SULFATE 2 MG/ML CARP IV PRN ×2 (08:37→12:48)
[2019-12-25] MEDS: HEPARIN SOD 5,000 UNIT/0.5 ML VIAL SQ SCH (08:38)
[2019-12-25] MEDS: FAMOTIDINE 20 MG TAB PO SCH (08:38)
[2019-12-25] MEDS: FLUOCINONIDE 0.05% OINT 15 GM TUBE EXT SCH (08:40)
[2019-12-25 08:44] LABS: BUN Creatinine Ratio 40.3 (10-20); Calcium 8.8 mg/dl (8.5-10.1); Creatinine Clr Calc Pharmacy 34.7 ml/min; Est GFR (African American) 39.6; Est GFR (Non-African American) 34.2
--- NOTE | 2019-12-25 10:43 | Discharge Summary ---
Date of Service December 25, 2019 Admission HPI Per Admitting Provider 74yo male with severe chronic systolic CHF, AICD, T2DM, a.fib, ?hypothyroidism, and ICU admission in July 2019 for influenza infection requiring intubation/mech ventilation who presents from home with his due to a variety of complaints and symptoms. Most of the history was obtained from the patient's as the patient was altered during the encounter. Apparently since his 07/2019 admission to the ICU he has done poorly on a general basis. He was readmitted to [facility] in October 2019 for pneumonia. He did recover from the episode but has had progressive weakness since. According to the patient's he complains constantly of feeling cold (much worse in the last 1-2 weeks, however), has had severely decreased PO intake since October (again worse in the last week), 30-40 pounds of weight loss since 2018, cough productive of yellow sputum for 1 week, shortness of breath for 2 days, dysuria for 1-2 days, excessive sleeping with sleep/naps of up to 20 hours/day, diarrhea about 1 week ago (lasted for about 3 days then resolved), urinary incontinence, and confusion. Sometime overnight/this AM the patient's nail beds were cyanotic. They attempted to get NC O2 from his PCP's office but this was not possible without a [id number] encounter according to the . No fevers, chills, or myalgias. No chest pain. No vomiting. No abdominal pain. He did see Dr Pizarro from cardiology about 10 days ago. During that visit his xarelto was discontinued due to recent episode of excessive bleeding. No recent travel. does leave the home on occasion for obtaining necessities. Daughter - who is a a nurse at [employer] - has been visiting their home and brings them food/groceries. Lastly, the patient's AICD/pacer was interrogated recently. The received a call from Dr Barrow's office yesterday and they were told the interrogation suggested fluid overload. He was instructed to take metazolone yesterday which he did take. Principal Diagnosis Acute respiratory failure with hypoxia Pneumonia with septic shock Acute cardiogenic shock, systolic CHF Acute kidney injury Multisystem organ failure Discharge Exam Constitutional + ill appearing, average body habitus and + lethargic; no acute distress Neck trachea midline, no thyromegaly Respiratory Auscultation: + diminished lung sounds (On right), + crackles (Throughout the right side) and + rhonchi; no wheezes Cardiovascular Rate/Rhythm: regular rate and regular rhythm Heart Sounds: no murmur Chest (Breasts) Chest: normal inspection of chest Gastrointestinal (Abdomen) normal bowel sounds, soft, nontender, no hepatosplenomegaly Musculoskeletal Extremities: extremities normal to inspection Skin no rashes, warm and dry Neurologic + obtunded Lymphatic no lymphedema Discharge Data Allergies Allergy/AdvReac Type Severity Reaction Status Date / Time Iyuwwtz-Fpo-Lmc Reductase Allergy Intermediate myalgia Verified 12/20/19 10:18 Inhibitor bee venom protein (honey bee) Allergy Unknown yellow Verified 12/20/19 10:18 jacket Penicillins Allergy Unknown Unknown Verified 12/20/19 10:18 levofloxacin AdvReac Intermediate nightmares Verified 12/20/19 10:18 Consultations 12/20/19 11:26 ED Decision to Admit Stat 12/20/19 15:26 Consult Case Management - Discharge Planning Routine Consult Undercover Agent Routine 12/21/19 10:36 Consult Palliative Care Routine Ordered Studies 12/20/19 17:05 CT chest wo con Stat 12/20/19 17:15 CT abd pelvis wo con Urgent CXR x 4 Hospital Course (1) Shock: Suspect combination of septic and cardiogenic. Was on Levophed in ICU for 1-2 days, then taken off pressors, moved to [facility] -continued to be hypotensive, hypoxic, lethargic, encephalopathic was given several small boluses of NS -started midodrine 2.5mg po tid but then refused further meds Last echo - 05/2019 - EF 20-25%. 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 Right lung with considerable infiltrate thought to be secondary to aspiration pneumonia COVID-19 negative Appreciate pulmonary/critical care management Was weaned off high flow nasal cannula to 5 L nasal cannula briefly and transferred out of ICU, however worsened as above Patient does not want to be intubated or use BiPAP--> transitioned to CONSUMER LOAN SPECIALIST as above (3) Sepsis: Secondary to pneumonia -Follow cultures-no growth to date (4) Pneumonia: Likely aspiration pneumonia as above, CT chest with large infiltrate throughout the right side With bilateral pleural effusions Procalcitonin remains elevated but trended downward to 2.19 -Antibiotics as above were given without improvement CONSUMER LOAN SPECIALIST (5) Acute on chronic systolic heart failure: Severe CHF - EF 20-25%. With hypotension requiring small boluses of fluid, however with pleural effusions -Continue to hold diuretics, entresto and BB due to shock. -required Levophed and then off, attempted midodrine but then refusing pills and transitioning to CONSUMER LOAN SPECIALIST (6) Coagulopathy: INR remains elevated likely secondary to hepatic congestion from shock given elevated bilirubin He is not on warfarin. Could also have vitamin K deficiency Platelets are normal making DIC unlikely. (7) Atrial fibrillation: h/o xarelto use but stopped about 10 days prior to admission due to excessive bleeding. excessive bleeding likely from coagulopathy in the setting of that xarelto use. (8) ICD (implantable cardioverter-defibrillator) in place: noted, biventricular recent interrogation done as outpatient by cardiology Pacing on telemetry here (9) Chronic kidney disease, stage 3 (moderate): baseline Cr about 1.5 to 1.7 Creatinine greater than 2 on admission and did improve down to 1.4, but now back up to 1.8 on day ofdischarge due to ATN from hypotension most likely - mild acidosis with bicarbonate of 20 -21 secondary to renal failure etiology of acute kidney injury - cardiorenal vs sepsis-associated or combination -no further labs due to CONSUMER LOAN SPECIALIST -keep Malagon in place for comfort on discharge (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: a1c 5.6% in Oct 2019 with his weight loss his T2DM has essentially resolved -no need for glucose checks on hospice (11) Hypertension: now with shock/hypotension -dc home meds (12) Severe protein-calorie malnutrition: 30-40 pounds of weight loss since 2019 occult malignancy possible versus end-stage heart failure (13) Cold intolerance: TSH wnl, free T4 normal (14) Abnormal LFTs: Total bilirubin up to 5.0 with elevated direct bilirubin, other LFTs normal Direct bilirubin is elevated at 3.8, INR elevated Looks like biliary stasis -likely secondary to congestion from CHF -CT abdomen/pelvis with fatty liver no further labs (15) Metabolic encephalopathy: Secondary to presumed sepsis, shock, etc. now obtunded, on CONSUMER LOAN SPECIALIST TSH and T4 normal (16) CAD (coronary artery disease): h/o acute [place] 1997 no recent ischemic symptoms troponin is wnl hold aspirin for lethargy (17) Leukocytosis: chronic, baseline around 10-12, seen by Heme in past and thought to be reactive -now up due to acute infection to 16 no further labs (18) Hypokalemia: replaced and resolved (19) DVT prophylaxis: SQ heparin-was provided Dispo-transition to CONSUMER LOAN SPECIALIST today and family wishes for home with hospice-all arrangements made, appreciate Facilities Maintenance Manager coordination Palliative Care consult appreciated DNR/DNI Total Time Total Time Spent Total Time Spent (In Minutes): 40 min Total Time Includes: Examination of the Patient, Discharge Planning and Medication Reconciliation Discharge Plan Discharge Items Patient Disposition: Hospice - Home Reason For Visit: PNEUMONIA,ACUTE/CHRONIC CHF,SHOCK Discharge Diagnosis: Pneumonia, septic shock, congestive heart failure, Acute respiratory failure with hypoxia Condition on Discharge: Critical Activity: As commented below Bathing: No limitations Exercise/Sports: Rest today Non-emergency contact: Primary Care Provider Call non-emergency contact if: you have any medication questions, your symptoms worsen, your pain is not controlled, your pain is worsening, your pain is unusual for you and your pain is concerning for you Follow-up/Referrals: Leonor Day DO [Primary Care Provider] - Diet: Other - See Diet Comment Diet Comment: food for comfort as tolerated Addtl Attending Provider Instructions: Please give Roxanol 5mg by mouth every 1 hour as needed for breathlessness or pain. Please give lorazepam 1mg under the tongue as needed for anxiety or agitation. You can give atropine drops 3-4 by mouth every 4 hours as needed for excessive secretions. All of Mr. Das's previous home meds can be discontinued. Oxygen provided for comfort. We are keeping you all in our thoughts, Dr. Guido Pending Studies at Discharge: No Stand-Alone Forms: My [facility] [employer] and DC Order Prescriptions: New atropine 1 % Drops 1 - 2 drp PO Q6 PRN (Reason: excessive secretions) Qty: 15 RF: 0 morphine concentrate 100 mg/5 mL (20 mg/mL) solution 5 mg PO Q1H PRN (Reason: breathlessness or pain) Qty: 30 RF: 0 lorazepam 1 mg tablet 1 mg sublingual Q4 PRN (Reason: anxiety or agitation) Qty: 10 RF: 0 Continued fluocinonide 0.05 % ointment 1 appln TOP BID Qty: 60 RF: 0 Discontinued potassium chloride 20 mEq tablet extended release 20 meq PO DAILY Qty: 90 RF: 3 metoprolol succinate 25 mg tablet extended release 24 hr 25 mg PO DAILY Qty: 90 RF: 0 nitroglycerin 400 mcg/spray spray,non-aerosol 1 sprays SL .COMPLEX PRN (Reason: chest pain) Qty: 4.9 RF: 0 glipizide 5 mg tablet 5 mg PO DAILY RF: 0 furosemide [Lasix] 40 mg tablet 40 mg PO BID Qty: 180 RF: 3 metolazone 2.5 mg tablet 2.5 mg PO DAILY PRN (Reason: Fluid Retention) RF: 0 Entresto 24-26 mg tablet 0.5 tab PO BID Qty: 180 RF: 3 cholecalciferol (vitamin D3) 5,000 unit capsule 5,000 units PO DAILY RF: 0 aspirin [Aspir-81] 81 mg Tablet,Delayed Release (Dr/Ec) 81 mg PO DAILY RF: 0 loperamide [Imodium A-D] 2 mg Tablet 2 mg PO DIRECTED PRN (Reason: Diarrhea) RF: 0 Discharge Orders: Discharge Order (Routine); Ordered 12/25/19 Ordered By: Laly Guido Admission Data Admit Date/Time: 12/20/19 12:50 Attending Provider: Laly Guido Admit Provider: Amol Mendoza Primary Care Provider: Leonor Day Other Providers: [facility],Home Healthcare ; Amol Mendoza ; Anjel Camejo ; Philomena Welsh Coding Level of Care Code D/C Day Management >30 mins Diagnoses Shock R57.9 Acute respiratory failure with hypoxia J96.01 Sepsis A41.9 Pneumonia J18.9 Laterality: right Lung location: unspecified part of lung Pneumonia type: due to unspecified organism Acute on chronic systolic heart failure I50.23 Coagulopathy D68.9 Atrial fibrillation I48.91 ICD (implantable cardioverter-defibrillator) in place Z95.810 Chronic kidney disease, stage 3 (moderate) N18.3 Diabetes mellitus type 2 with complications E11.8 Hypertension I10 Severe protein-calorie malnutrition E43 Cold intolerance R68.89 Abnormal LFTs R94.5 Metabolic encephalopathy G93.41 CAD (coronary artery disease) I25.10 Leukocytosis D72.829 Hypokalemia E87.6 DVT prophylaxis Z29.9
== END 2019-12-25 13:17 | disposition hospice, home (50) | DRG 871 ==
LOC: ED 09:36 → 1E 12:50 → SUATTDRO 12:50 → 1E 14:27 → 2N 12-22 15:57